=== PATIENT | male | born 1975 | race Caucasian/White ===

== ENCOUNTER 2019-03-19 13:12 | Outpatient (RCR) | payer MEDICARE, SELFPAY ==
--- NOTE | 2019-03-19 14:16 | HMH.PTOPEV ---
PT Outpatient Evaluation Rehab PT Outpatient Evaluation Start: 03/19/19 14:03 Freq: Status: Active Protocol: Document 03/19/19 14:03 GIOVANNI (Rec: 03/19/19 14:15 GIOVANNI [id number]) Electronically Signed By Manpreet Copeland, PT 03/19/19 14:03 Outpatient Therapy Subjective History Subjective History Patient is a 43 year old male presenting to outpatient PT with repors of L sided cervical spine pain with LUE radicular symptoms. Symptoms are of insidious onset starting 08/2018. No recent diagnostics to report. L shoulder ROM WFL. He is currently unemployed. He has completed 1 previous episode of PT for related symptoms that provided minimal relief. Some relief noted with cervical mechanical traction. Pt denies any other comorbidities. Chief Complaint Pain,Stiff Symptom Type Ache,Numbness,Tingling Symptoms Relieved By Nothing Symptoms Aggravated By Physical Activity,Lifting Prior Functional Limitations Reaching,Lifting,Housework, Recreation Activity Current Functional Limitations Reaching,Lifting,Housework, Recreation Activity Symptom Description Constant but Variable Level of pain today (0-10) 3 Pain scale - at its best (0-10) 3 Pain scale - at its worst (0-10) 7 Cervical Eval Palpation Cervical Muscles R Cervical Paraspinal,L Cervical Paraspinal,R Suboccipital,L Suboccipital,R CT Junction,L CT Junction,R Upper Trapezius,L Upper Trapezius,R Thoracic Paraspinals,L Thoracic Paraspinals Cervical/Thoracic Palpation Findings Tenderness Posture Head/C-Spine Posture Sitting Position C-Spine Flattened Flexibility Deficits Upper Trapezius Muscle Length (R) Moderate Tightness,(L) Moderate Tightness Levaetor Scapulae Muscle Length (R) Moderate Tightness,(L) Moderate Tightness Pectoralis Minor Muscle Length (R) Moderate Tightness,(L) Moderate Tightness Passive Joint Mobility Cervical PIVM Dec: R OA L OA R
== END 2019-03-19 13:20 | disposition home or self-care (01) ==
LOC: PT 13:12
PROVIDERS: Visit Provider Internal Medicine Adolescent Medicine
DX: S62.181A Displaced fracture of trapezoid [smaller multangular], right wrist, initial encounter for closed fracture (principal)
CPT/HCPCS: 97163

== ENCOUNTER → 2019-04-15 11:06 | Outpatient (CLI) | payer MEDICARE, SELFPAY ==
--- NOTE | 2019-04-15 11:17 | XR_ITS ---
XR foot RT min 3V HISTORY: ITS.REASON: RT FOOT PAIN ORDERING PHYSICIAN: Mick Bailey MD PATIENT AGE: 44 years COMPARISON: None FINDINGS: No fracture or dislocation. No lytic or blastic change. There is normal mineralization.. The joint spaces are well-preserved. No significant degenerative/arthritic changes. No erosive changes evident. A well-circumscribed calcific density is present at the proximal aspect of the first intermetatarsal space. This may be dorsal. IMPRESSION: No acute finding
== END ==
PROVIDERS: PCP Internal Medicine Adolescent Medicine; Visit Provider Internal Medicine Adolescent Medicine
DX: M79.671 Pain in right foot (principal)
CPT/HCPCS: 73630

== ENCOUNTER → 2019-04-29 17:36 | Outpatient (CLI) | payer MEDICARE, MEDICAID, SELFPAY ==
[2019-04-29 19:30] LABS: Amphetamine/Metha Screen,Urine Negative ng/mL (<1000); Barbiturates Screen,Urine Positive ng/mL (<200); Benzodiazepines Screen,Urine Positive ng/mL (<200); Cannabinoid Screen,Urine Negative ng/mL (<50); Cocaine Screen,Urine Negative ng/mL (<300); Methadone Screen,Urine Negative ng/mL (<300); Opiate Screen,Urine Positive ng/mL (<300); Phencyclidine Screen,Urine Negative ng/mL (<25)
== END ==
PROVIDERS: Visit Provider Nurse Practitioner Family
DX: Z79.899 Other long term (current) drug therapy (principal)
CPT/HCPCS: 80305

== ENCOUNTER → 2019-06-25 19:37 | Outpatient (CLI) | payer MEDICARE, MEDICAID, SELFPAY | PROVIDERS: PCP Nurse Practitioner Family; Visit Provider Nurse Practitioner Family | DX: G47.33 Obstructive sleep apnea (adult) (pediatric) (principal); R40.0 Somnolence; R06.83 Snoring | CPT/HCPCS: 95810 ==

== ENCOUNTER → 2019-07-14 10:42 | Outpatient (CLI) | payer MEDICARE, MEDICAID, SELFPAY ==
[2019-07-14 13:12] LABS: Thyroid Stimulating Hormone 0.96 uIU/ml (0.358-3.740)
[2019-07-15 05:08] LABS: Hep A Ab, IgM Negative (Negative); Hepatitis B Core Antibody IgM Negative (Negative); Hepatitis B Surface Antigen Negative (Negative); Iron 85 ug/dL (38-169); Iron Saturation 30 % (15-55); UIBC 200 ug/dL (111-343)
[2019-07-15 07:17] LABS: Hepatitis C Antibody >11.0 s/co ratio (0.0-0.9); Vitamin B12 428 pg/mL (232-1245)
[2019-07-16 11:45] LABS: H. pylori Breath Test Negative (Negative)
== END ==
PROVIDERS: Nurse Practitioner Family; Visit Provider Nurse Practitioner Psychiatric/Mental Health
DX: Z00.00 Encounter for general adult medical examination without abnormal findings (principal); R11.10 Vomiting, unspecified; F41.9 Anxiety disorder, unspecified
CPT/HCPCS: 36415; 80074; 82607; 82652; 83013; 83540; 83550; 84443

== ENCOUNTER → 2019-07-22 12:00 | Outpatient (CLI) | payer MEDICARE, MEDICAID, SELFPAY | PROVIDERS: Visit Provider Nurse Practitioner Family | DX: Z20.5 Contact with and (suspected) exposure to viral hepatitis (principal); R11.10 Vomiting, unspecified; F32.9 Major depressive disorder, single episode, unspecified; F41.1 Generalized anxiety disorder | CPT/HCPCS: 36415; 87522 ==

== ENCOUNTER 2019-09-09 08:00 | Outpatient (RCR) | payer MEDICARE, MEDICAID, SELFPAY ==
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
== END 2019-09-09 08:05 | disposition home or self-care (01) ==
LOC: PT 08:00
PROVIDERS: PCP Nurse Practitioner Family; Visit Provider Nurse Practitioner Family
DX: M54.42 Lumbago with sciatica, left side (principal)
CPT/HCPCS: 97014; 97110; 97163; G0283

== ENCOUNTER → 2019-12-08 14:32 | Outpatient (CLI) | payer MEDICARE, MEDICAID, SELFPAY ==
--- NOTE | 2019-12-08 14:40 | XR_ITS ---
PROCEDURE: XR KNEE RT 4V CLINICAL INDICATION: knee pain Right knee pain COMPARISON: No exams were available for comparison FINDINGS: No fracture or dislocation. No lytic or blastic change. There is normal mineralization. There is slight decrease in the joint space medially which could be due to early osteoarthritic change. No spurring or osteosclerosis. Other findings:None. IMPRESSION: Slight decrease in the joint space medially otherwise negative Dictated by: Romario Vidal MD 12/08/2019 15:20 Electronically signed by Romario Vidal MD in [place] 12/08/2019 15:20
== END ==
PROVIDERS: PCP Nurse Practitioner Family; Visit Provider Orthopaedic Surgery
DX: M25.561 Pain in right knee (principal)
CPT/HCPCS: 73564

== ENCOUNTER → 2019-12-09 14:14 | Outpatient (CLI) | payer MEDICARE, MEDICAID, SELFPAY ==
[2019-12-09 15:56] LABS: Amphetamine/Metha Screen,Urine Negative ng/ml (<1000)
[2019-12-09 15:57] LABS: Barbiturates Screen,Urine Negative ng/ml (<200)
[2019-12-09 15:58] LABS: Benzodiazepines Screen,Urine Positive ng/ml (<200); Cannabinoid Screen,Urine Negative ng/ml (<50)
[2019-12-09 15:59] LABS: Cocaine Screen,Urine Negative ng/ml (<300)
[2019-12-09 16:00] LABS: Methadone Screen,Urine Negative ng/ml (<300); Opiate Screen,Urine Negative ng/ml (<300)
[2019-12-09 16:01] LABS: Phencyclidine Screen,Urine Negative ng/ml (<25)
== END ==
PROVIDERS: Visit Provider Nurse Practitioner Family
DX: Z79.899 Other long term (current) drug therapy (principal)
CPT/HCPCS: 80305

== ENCOUNTER → 2019-12-16 07:38 | Outpatient (CLI) | payer MEDICARE, MEDICAID, SELFPAY ==
--- NOTE | 2019-12-16 07:38 | MR_ITS ---
PROCEDURE: MR KNEE RT WO CON CLINICAL INDICATION: Knee pain Medial right knee pain COMPARISON: XR KNEE RT 4V from 12/08/2019 TECHNIQUE: Routine multiplanar multi echo sequences are performed without gadolinium enhancement. FINDINGS: Cruciate ligaments appear intact. Collateral ligaments, patellar tendon, and quadriceps tendon appear intact. There is a horizontal tear involving the posterior horn of the medial meniscus. There may be a small bucket-handle component. There is diffuse increased T2 signal involving the posterior horn of lateral meniscus. This however does not meet strict MRI criteria for meniscal tear. There are mild osteoarthritic changes with decrease in the joint space medially and small posterior osteophytes noted at the patella. There is a small knee joint effusion. IMPRESSION: The there is a complex tear involving the posterior horn of the medial meniscus with what appears to represent a horizontal component and possible small bucket-handle or radial tear is well Mild osteoarthritic changes with small knee joint effusion Dictated by: Romario Vidal MD 12/17/2019 12:35 Electronically signed by Romario Vidal MD in [place] 12/17/2019 12:35
== END ==
PROVIDERS: PCP Nurse Practitioner Family; Visit Provider Orthopaedic Surgery
DX: M25.561 Pain in right knee (principal)
CPT/HCPCS: 73721

== ENCOUNTER → 2020-01-09 09:49 | Outpatient (CLI) | payer MEDICARE, MEDICAID, SELFPAY | PROVIDERS: PCP Nurse Practitioner Family; Visit Provider Nurse Practitioner Family | DX: R06.02 Shortness of breath (principal) | CPT/HCPCS: 94060; 94618; 94640; 94727; 94729 ==

== ENCOUNTER 2020-02-07 20:24 | Emergency (ER) | payer MEDICARE, MEDICAID, SELFPAY ==
[2020-02-07 20:26] VITALS: BP 113/81; PULSE 103; RESP 24; TEMP 36.9; O2SAT 95; BMI 37.6
--- NOTE | 2020-02-07 20:40 | XR_ITS ---
PROCEDURE: XR CHEST 2V CLINICAL HISTORY: cough, congestion Cough and congestion, smoker COMPARISON: No exams were available for comparison FINDINGS: The cardiomediastinal silhouette and pulmonary vascularity are within normal limits. There is generalized coarsening of the bronchovascular markings consistent with smoking related lung disease. In addition, there is patchy ground-glass density in the left upper lobe and lingula with some mild atelectatic change in the lingula. There is a more rounded area of density in the left lower lung zone at 15 mm. No acute bony abnormalities. IMPRESSION: Left upper lobe and lingular pneumonia with atelectatic changes in the lingula. The pneumonia has a ground-glass opacity and could be seen with COVID 19 however, that appearance is nonspecific. Bacterial pneumonia is also consideration. In addition there is a 15 mm nodular opacity overlying the left lower lung zone. Suggest following till clear recommended. Dictated by: Romario Vidal MD 02/08/2020 06:40 Electronically signed by Romario Vidal MD in [place] 02/08/2020 06:40
--- NOTE | 2020-02-07 20:41 | HMH.EDUTC ---
[facility] [place] Impression: Pneumonia Qualifiers: Pneumonia type: due to unspecified organism Laterality: left Lung location: unspecified part of lung Qualified Code(s): J18.9 - Pneumonia, unspecified organism Disposition: Home, Self-Care Condition on Discharge: Good Instructions: Sore Throat, Pneumonia-Adult, Cough, DI for Cough -- Adult, Albuterol, Preventing the Spread of Coronavirus Discharge Instructions Additional Instructions: *Monitor Temp, Over the counter Motrin or Tylenol as directed/as needed Tylenol every 4 hours and Motrin every 6 hours (as long as your family doctor has told you that you can take it) for fever or pain. and straight to ER if unable to lower temp less than 101.0 after medication given *Warm salt water gargles may help to soothe the throat *Throat Lozenges *Warm fluids *Sleep elevated *Humidifier/Vaporizer Your throat swab was sent for culture. Those results are typically sent to your primary care. Be sure to follow up in 2-3 days with your family doctor/primary care physician if no improvement so they can review those result and treat if necessary. If you don?t have a primary care doctor, I recommend you get one but in the mean time, you will have to return to a walk in clinic Follow up IMMEDIATELY for new or worsening symptoms or no Noticeable improvement over the next 48-72 hours. 911 for difficulty breathing or swallowing You was tested for CoronaVirus and was given a handout with instructions, Go home and self quarantine as you was advised in the [facility] and await results and follow instructions on card and instructions given in [facility] Prescriptions: Azithromycin [Z-Chinedu 250mg Tab] 250 mg PO DIRECTED #6 tab Transmission Status: Pending to [facility]/pharmacy #[id number] Referrals: Jorge Velasco MD [Primary Care Provider] - As needed Time of Disposition: 21:27 Medical Decision Making - Jonathan Inquiry Pt receiving controlled substance: No Jonathan was queried for this patient: No Vital Signs: 02/07/20 20:26 Temperature 98.4 F Temperature Source Oral Pulse Rate [Radial] 103 H Respiratory Rate 24 Blood Pressure [Right Arm] 113/81 Blood Pressure Mean [Right Arm] 91 Blood Pressure Source [Right Arm] Automatic Cuff Blood Pressure Position [Right Arm] Sitting 02 Sat by Pulse Oximetry 95 Oxygen Delivery Method Room Air - Lab Data Lab results reviewed: Yes: I reviewed the patient's lab results. Lab Results 02/07/20 20:56: Influenza Type A Ag Negative, Influenza Type B Ag Negative 02/07/20 20:56: Strep Scn Rapid Clinic Negative Orders (Tests/Meds): ORDERS Category Date Time Status Chest XR 2 view (NOT portable) [XR chest 2V] Stat Exams 02/07/20 20:40 Taken SARS-CoV-2, [place] Stat Lab 02/07/20 20:56 Ordered Strep Screen Confirmation Stat Micro 02/07/20 20:56 Received - Radiology Data #1 Image(s): Chest Image Reviewed: Yes I reviewed the patient's radiology image w/the ED provider Discussed with Dr Krista Spaulding left lung [facility] [place] - General Stated complaint: MORROW,sore throat Time Seen by Provider: 02/07/20 20:41 Mode of Arrival: Ambulatory Source of Information: Patient Limitations: No Limitations Description of Symptoms (Recalled from Triage Doc. by RN): weakness, SOB, sore throat, cough, congestion HEENT Symptoms (Recalled from RN notes): Yes Resp Symptoms (Recalled from RN notes): No Skin Symptoms (Recalled from RN notes): No MS Symptoms (Recalled from RN notes): No Functional Status (Recalled from RN notes): wnl - History of Present Illness Provider Complaint: Patient state that he hasnt been feeling that well for about a week and got worse in the last couple of days States that he has been having sore throat, sinus pain and pressure, dry cough and at times coughs so much he feels a little short of breath States that he has a history of COPD and stopped smoking a little while back States that earlier he had temp of 100.0 at home so his family wanted
[2020-02-07 20:57] LABS: UTC Influenza A Antigen Negative (Negative); UTC Influenza B Antigen Negative (Negative); UTC Strep Screen (Rapid) Negative (Negative)
[2020-02-07 21:37] VITALS: BP 113/81; PULSE 103; RESP 24; TEMP 36.9; O2SAT 95
--- NOTE | 2020-02-09 17:17 | PC.NURSE ---
Notified pt and provider of negative covid results.
[2020-02-09 17:22] LABS: Covid-19 Nasal PCR Sendout Lex Not Detected
== END 2020-02-07 21:40 | disposition home or self-care (01) ==
PROVIDERS: Emergency Provider Nurse Practitioner; PCP Emergency Medicine
DX: J18.9 Pneumonia, unspecified organism (principal); F41.8 Other specified anxiety disorders; F17.210 Nicotine dependence, cigarettes, uncomplicated; J44.9 Chronic obstructive pulmonary disease, unspecified; Z79.899 Other long term (current) drug therapy
CPT/HCPCS: 71046; 87804; 87880; 99202; U0003

== ENCOUNTER 2020-03-03 23:57 | Observation (INO) | payer MEDICARE, MEDICAID, SELFPAY ==
--- NOTE | 2020-03-03 23:48 | ECG_ITS ---
APPROVED REPORT Exam: Resting ECG HR:75 bpm ECG Measurements Heart Rate 75 AXES VA 194 P 66 QRSd 88 QRS 30 QT 394 T 47 QTc 439 <Conclusion> Normal sinus rhythm Possibleold inferior/lateral infarct Abnormal ECG Electronically signed by : Larry Hernandez, 03/05/2020 13:59:25
[2020-03-03 23:58] VITALS: BP 131/76; PULSE 77; RESP 16; TEMP 36.7; O2SAT 95; BMI 37.9
[2020-03-04] VITALS (20 sets, daily range): BP systolic 94–132; BP diastolic 59–84; PULSE 40–82; RESP 12–18; TEMP 36.4–36.7; O2SAT 92–98; BMI 37.6; BMI 37.8
--- NOTE | 2020-03-04 | IR_ITS ---
APPROVED REPORT Patient Location: Inpatient Vending Machine Collector: ELISABET Layton RT (R) PROCEDURES Left heart catheterization Left ventriculogram Selective coronary angiogram INDICATION Acute coronary syndrome Informed consent was obtained prior to the procedure. COMPLICATIONS None Estimated Blood Loss: Less than 10 ml TECHNIQUE One percent lidocaine used to anesthetize the right anterior aspect of the wrist. The right radial artery was accessed via the Seldinger technique. A 6 [place] sheath was placed in the right radial artery. 2.5 mg of verapamil, 800 mcg of nitroglycerin, 1mg Lidocaine and 5000 U Heparin were given through the arterial sheath. The trap catheter and 6 Singaporean JL 3 catheter were used to perform left heart catheterization, left ventriculogram and selective coronary angiogram. At the end of the procedure the sheath was removed good hemostasis was achieved using Traclet band, patient was transferred to the postop holding area in stable condition. ANGIOGRAPHIC RESULTS The left main artery Normal The left anterior descending artery Has proximal mild 10 to 20% stenosis. The mid LAD has mild 10% stenosis. Large first diagonal artery has an ostial 50 to 60% stenosis and is 2 mm in diameter The circumflex artery Is nondominant normal The right coronary artery Is a massively large dominant vessel with mild diffuse 10% luminal irregularities The MCBRIDE ventriculogram reveals Normal 65% The left ventricular end-diastolic pressure 10 mmHg IMPRESSION Moderate stenosis and a 2 mm first diagonal artery which is the likely etiology for the angina Normal ejection fraction Normal left ventricular end-diastolic pressure PLAN 1. Medical management. I would be very hard pressed to revascularize this diagonal artery. This has a much more favorable response to medical management and percutaneous revascularization. 2. Aggressive risk factor modification 3. LDL less than 55 4. Maximize antianginals Electronically signed by : Win Linares, 03/04/2020 12:33:45
--- NOTE | 2020-03-04 00:20 | XR_ITS ---
PROCEDURE: XR CHEST 2V CLINICAL HISTORY: chest pain COMPARISON: XR CHEST 2V from 02/07/2020 FINDINGS: The cardiomediastinal silhouette and pulmonary vascularity are within normal limits. Mild left upper lobe and lingular airspace disease/atelectasis as previously described which is shown some improvement. The nodular opacity overlying the lingular region is less apparent. The right lung is clear. No new areas of infiltrate. No acute bony abnormalities. IMPRESSION: Persistent but improving left upper lobe and lingular airspace disease/atelectatic change Dictated by: Romario Vidal MD 03/04/2020 07:13 Electronically signed by Romario Vidal MD in [place] 03/04/2020 07:13
[2020-03-04 00:44] LABS: Anion Gap 12.7 mEq/L (5-15); Blood Urea Nitrogen 14 mg/dl (9-20); Calcium 8.9 mg/dl (8.4-10.2); Carbon Dioxide 21 mmol/L (22.0-30.0); Chloride 109 mmol/L (98-107); Creatinine Clearance Estimated 137 mL/min (50-200); Estimated Glomerular Filt Rate 66 ml/min (>60); GFR (African American) 80 ML/MIN (>60); Glucose 113 mg/dl (74-100); Potassium 3.7 mmoL/L (3.5-5.1); Sodium 139 mmol/L (136-145)
[2020-03-04 00:46] LABS: Basophils # 0.1 K/mm3 (0-0.2); Basophils % 0.6 % (0.1-2.0); Eosinophils # 0.6 K/mm3 (0.0-0.4); Eosinophils % 5.4 % (0.1-12.0); Hematocrit 38.2 % (42.0-52.0); Hemoglobin 13.1 g/dL (14.1-18.0); Lymphocytes % 27.9 % (10-50); Mean Corpuscular HGB Conc 34.5 g/dL (31.8-35.4); Mean Corpuscular Hemoglobin 29.8 pg (27.0-31.2); Mean Corpuscular Volume 86.4 fl (80-94); Mean Platelet Volume 7.6 fl (7.4-10.4); Monocytes # 0.6 K/mm3 (0.1-1.0); Monocytes % 5.1 % (1.7-9.3); Neutrophils # 6.6 K/mm3 (1.8-7.8); Platelet Count 243 K/mm3 (142-424); Red Blood Count 4.41 M/mm3 (4.60-6.20); Red Cell Distribution Width 14.2 % (11.5-17.5); White Blood Count 10.8 K/mm3 (4.8-10.8)
[2020-03-04 01:10] LABS: Troponin I < 0.01 ng/ml (0.00-0.034)
--- NOTE | 2020-03-04 02:00 | HMH.EDCP ---
ED Disposition Clinical Impression: Obesity (BMI 30-39.9) Chest pain Qualifiers: Chest pain type: precordial pain Qualified Code(s): R07.2 - Precordial pain Disposition: Admitted as Observation Condition on Discharge: Good Referrals: Dio Albarado APRN [Primary Care Provider] - - Critical Care Critical Care Time: No Attestation: On 03/03/20, the high probability of a clinically significant, sudden or life threatening deterioration of the following system(s) required my full and direct attention, intervention and personal management. The time I documented below is in addition to time spent performing reported procedures but includes the following listed in this critical care notation. Medical Decision Making - Medical Records Medical records reviewed: Yes: I reviewed the patient's medical records. - Jonathan Inquiry Pt receiving controlled substance: No Vital Signs: 03/03/20 23:58 03/04/20 00:28 Temperature 98.0 F Temperature Source Oral Pulse Rate [Left Radial] 77 71 Respiratory Rate 16 16 Blood Pressure [Right Arm] 131/76 129/69 Blood Pressure Mean [Right Arm] 94 89 Blood Pressure Source [Right Arm] Automatic Cuff Automatic Cuff Blood Pressure Position [Right Arm] Sitting Sitting 02 Sat by Pulse Oximetry 95 96 Oxygen Delivery Method Room Air Room Air - Lab Data Lab results reviewed: Yes: I reviewed the patient's lab results. Lab Results 03/04/20 00:00: WBC 10.8, RBC 4.41 L, Hgb 13.1 L, Hct 38.2 L, MCV 86.4, MCH 29.8, MCHC 34.5, RDW 14.2, Plt Count 243, MPV 7.6, Neut % (Auto) 61.0, Lymph % (Auto) 27.9, [place] % (Auto) 5.1, Eos % (Auto) 5.4, Baso % (Auto) 0.6, Neut # (Auto) 6.6, Lymph # (Auto) 3.0, [place] # (Auto) 0.6, Eos # (Auto) 0.6 H, Baso # (Auto) 0.1 03/04/20 00:00: Sodium 139, Potassium 3.7, Chloride 109 H, Carbon Dioxide 21 L, Anion Gap 12.7, BUN 14, Creatinine 1.20, Estimated Creat Clear 137, Estimated GFR 66, Est GFR ( Amer) 80, Glucose 113 H, Calcium 8.9, Troponin I < 0.01 Result diagrams: 03/04/20 00:00 03/04/20 00:00 Orders (Tests/Meds): ED MEDICATIONS Generic Name Dose Route Start Last Admin Trade Name Freq PRN Reason Stop Dose Admin Sodium Chloride 1,000 mls @ 999 mls/hr 03/04/20 00:00 03/04/20 00:01 Sod Chlor 0.9% 1000ml Bag IV 03/04/20 01:00 999 mls/hr .Q1H1M JABARI Administration Discontinued Medications Generic Name Dose Route Start Last Admin Trade Name Freq PRN Reason Stop Dose Admin Aspirin 324 mg 03/04/20 00:00 03/04/20 00:01 Aspirin 81mg Chewable Tablet PO 03/04/20 00:01 324 mg ONCE ONE Administration Ketorolac Tromethamine 30 mg 03/04/20 00:47 03/04/20 00:49 Toradol 30mg/Ml Vial IV 03/04/20 00:48 30 mg ONCE ONE Administration Nitroglycerin 0.4 mg 03/04/20 00:00 03/04/20 00:01 Nitrostat 0.4mg Sl Tablet SL 03/04/20 00:01 0.4 mg ONCE ONE Administration Nitroglycerin 1 gm 03/04/20 01:19 03/04/20 01:20 Nitroglycerin 1 Inch Oint Udp TD 03/04/20 01:20 1 gm ONCE ONE Administration ORDERS Category Date Time Status XR chest 2V Stat Exams 03/04/20 00:20 Taken Troponin I Q3H Lab 03/04/20 03:30 Ordered Troponin I Q3H Lab 03/04/20 06:30 Ordered - Radiology Data #1 Image(s): Chest Image Reviewed: Yes I reviewed the patient's radiology image Preliminary Findings: Abnormal (inc markings ) - ECG Data Tracing #1 Normal Sinus Rhythm: Yes Ischemic changes: non-specific ST-T wave changes Chest Pain HPI - General Chief Complaint: Chest Pain Stated Complaint: chest pain Time Seen by Provider: 03/04/20 01:00 Mode of Arrival: Ambulatory Source of Information: Patient, Spouse, Medical Record Limitations: No Limitations Description of Symptoms (Recalled from ER Triage Doc. by RN): pt stated he has been experiencing intermitten chest pain for the last 2 weeks. pt describes it as a dull pain on the left side of his chest radiating to his back. pt stated this started when they took hi
--- NOTE | 2020-03-04 02:34 | PC.NURSE ---
report called to KAVEH Barrios
[2020-03-04 04:19] LABS: Troponin I < 0.01 ng/ml (0.00-0.034)
--- NOTE | 2020-03-04 05:52 | PC.NURSE ---
A&O X4. PT VERY PLEASANT UPON ADMISSION. DENIES CP T/O SHIFT. NITRO PASTE REMAINED IN PLACE UNTIL SHOWER THIS AM. C/O MORROW UPON ARRIVAL TO UNIT. ADMINISTERED TYLENOL PER DEC. UPON REASSESSMENT PT C/O MINIMAL RELIEF. WENT BACK INTO THE ROOM A FEW MINUTES LATER TO ADMIN MORPHINE PER DEC, PT NOTED RESTING IN BED WITH EYES CLOSED. NO FURTHER COMPLAINTS. WILL CONTINUE TO REASSESS MORROW. BILATERAL BREATH SOUNDS NOTED CLEAR T/O UPON AUSCULTATION. NSR AND SINUS MILLIE NOTED ON TREASURY ANALYST THIS AM. REFUSED TEDS. NO EDEMA NOTED. REMAINS NPO. REMAINS SAFE WITH SPOUSE AT BEDSIDE. WILL CONTINUE TO MONITOR.
[2020-03-04 07:05] LABS: Basophils % 0.6 % (0.1-2.0); Eosinophils # 0.6 K/mm3 (0.0-0.4); Eosinophils % 7.3 % (0.1-12.0); Hematocrit 35.9 % (42.0-52.0); Hemoglobin 12.1 g/dL (14.1-18.0); Lymphocytes # 2.3 K/mm3 (0.7-4.5); Lymphocytes % 30.1 % (10-50); Mean Corpuscular HGB Conc 33.7 g/dL (31.8-35.4); Mean Corpuscular Hemoglobin 29.5 pg (27.0-31.2); Mean Corpuscular Volume 87.6 fl (80-94); Monocytes # 0.4 K/mm3 (0.1-1.0); Monocytes % 5.3 % (1.7-9.3); Neutrophils # 4.3 K/mm3 (1.8-7.8); Neutrophils % 56.7 % (37.0-80.0); Platelet Count 208 K/mm3 (142-424); Red Blood Count 4.09 M/mm3 (4.60-6.20); Red Cell Distribution Width 14.4 % (11.5-17.5); White Blood Count 7.6 K/mm3 (4.8-10.8)
[2020-03-04 07:19] LABS: Anion Gap 10.9 mEq/L (5-15); Blood Urea Nitrogen 12 mg/dl (9-20); Calcium 8.6 mg/dl (8.4-10.2); Carbon Dioxide 21 mmol/L (22.0-30.0); Chloride 110 mmol/L (98-107); Chol/HDL Ratio 3.6 (1-3.5); Cholesterol 137 mg/dl (140-200); Creatinine Clearance Estimated 149 mL/min (50-200); Estimated Glomerular Filt Rate 73 ml/min (>60); GFR (African American) 88 ML/MIN (>60); Glucose 101 mg/dl (74-100); HDL Cholesterol 38 mg/dl (40-60); Potassium 3.9 mmoL/L (3.5-5.1); Sodium 138 mmol/L (136-145); Triglycerides 79 mg/dl (30-150); VLDL Cholesterol 16 mg/dL (0-40)
[2020-03-04 07:29] LABS: Direct LDL Cholesterol 94.05 mg/dL (100-129)
--- NOTE | 2020-03-04 07:31 | P.CONPHA_ITS ---
[facility] Pharmacy VTE Monitoring - Patient Demographics Admission date: 03/04/20 Report Date: 03/04/20 Time: 07:31 Allergies/Adverse Reactions: Patient Allergies No Known Allergies Allergy (Verified 03/04/20 00:27) Height: 1.8 m Weight: 122.64 kg Patient Problems: Current Active Problems Chest pain (Acute) Obesity (BMI 30-39.9) (Acute) - VTE Risk Labs: VTE Related Lab Results Hgb 12.1 g/dL (14.1-18.0) L 03/04/20 06:42 Hct 35.9 % (42.0-52.0) L 03/04/20 06:42 Plt Count 208 K/mm3 (142-424) 03/04/20 06:42 BUN 12 mg/dl (9-20) 03/04/20 06:42 Creatinine 1.10 mg/dl (0.66-1.25) 03/04/20 06:42 Estimated Creat Clear 149 mL/min (50-200) 03/04/20 06:42 Was VTE Risk Assessment Performed: Yes VTE Score: 5 VTE Risk Level: Low Risk Clinical Trial Participant: No - Prophylaxis VTE Prophylaxis Ordered?: Yes Types of VTE Prophylaxis: TEDS Knee High
[2020-03-04 07:32] LABS: Troponin I < 0.01 ng/ml (0.00-0.034)
--- NOTE | 2020-03-04 07:38 | HMH.PHAINT ---
HOME MEDICATION RECONCILIATION COMPLETED USING LIST FROM HOME PHARMACY
--- NOTE | 2020-03-04 07:56 | HMH.CNCARD ---
History of Present Illness Consult date: 03/04/20 Requesting physician: Jorge Velasco Consult reason: chest pain Chief complaint: chest pain Additional Medical History:: 1. Tobacco use, up to 1 pack/day for 20 years, discontinued recently 2. History of anxiety and depression 3. History of peripheral neuropathy with difficulty walking 4. History of asthma 5. History of GERD History of present illness: 44-year-old white male presented to the emergency department for 2-week history of chest pain worse with ambulation and stress. Patient states his 4 children (ages 12 down to 5 years of age) were removed from his parents home 2 weeks ago due to his dad not wanting to deal with the kids anymore. Patient does not know where the kids have been relocated. Substernal chest pain described as a heaviness and pressure with associated radiation to the left arm, shortness of breath and diaphoresis. Patient relates resolution of symptoms with nitroglycerin last evening. EKG showed sinus rhythm with no acute ST segment changes and troponins have returned normal x3. Cardiology consulted for evaluation recommendations Patient does have history of coughing to the point of vomiting. [facility] History Medical History: Reports:: Anxiety, Asthma, Depression, Migraine Denies:: Cancer, Diabetes Mellitus Type 1, Diabetes Mellitus Type 2, Hyperlipidemia, Hypertension, MRSA *Have you ever received a pneumonia vaccine?: No *Have you received a flu vaccine this season?: Yes Other Surgeries: Yes: Appendectomy, Other Amputation: No Fractures: No - *Social History Educational Level: Completed High School Smoking Status: Former smoker Tobacco Type: cigarettes # Packs/Day (cigarettes): 1 Smoking End Date: 6 months ago Alcohol Intake: current Alcohol Intake Frequency:: holidays/special occasions only Substance Use Type: denies use *Occupational Status:: disabled Housing: house Household Members: spouse, family *Travel in the last 8 weeks: None - Psychiatric History Pschychiatric History:: Reports:: Anxiety, Depression Family Hx:: Diabetes, Heart Attack, Hyperlipidemia, Hypertension Meds Home Medications Medication Instructions Recorded Confirmed Type albuterol sulfate 90 mcg/actuation 2 puff INHALATION Q4-6H PRN #6.7 g 12/09/19 03/04/20 Rx aerosol inhaler diazepam 2 mg tablet 2 mg PO DAILY PRN #30 tab 02/03/20 03/04/20 Rx Fluoxetine HCl 40 mg PO DAILY 03/04/20 03/04/20 History Fluticasone Propionate 1 spray INTRANASAL DAILY 03/04/20 03/04/20 History Fluticasone/Vilanterol [Breo 1 inh INHALATION DAILY 03/04/20 03/04/20 History Ellipta] Gabapentin 800 mg PO TID 03/04/20 03/04/20 History Montelukast Sodium [Singulair] 10 mg PO QPM 03/04/20 03/04/20 History Omeprazole 40 mg PO DAILY 03/04/20 03/04/20 History Topiramate [Topamax 100mg tablet] 100 mg PO DAILY 03/04/20 03/04/20 History risperiDONE [Risperidone] 0.5 mg PO BID 03/04/20 03/04/20 History Allergies Allergy/AdvReac Type Severity Reaction Status Date / Time No Known Allergies Allergy Verified 03/04/20 00:27 Review of Systems - Review of Systems Review of systems:: pertinent systems reviewed and negative unless documented below - *Cardiovascular Reports chest pain, Reports chest pain with activity, Reports shortness of breath with activity - *Respiratory Reports cough, Reports shortness of breath with activity - *Gastrointestinal Reports nausea, Reports vomiting, Denies loose stools - *Genitourinary Denies blood in urine - *Musculoskeletal Reports joint pain, Reports back pain - *Neurologic Denies dizziness, Denies tingling/numbness/burning sensations, Denies seizure-like activity, Denies fainting Exam Vital signs and Labs for Last 24 Hours: Temp Pulse Resp BP Pulse Ox 97.7 F 50 L 18 103/69 L 96 03/04/20 04:00 03/04/20 04:38 03/04/20 04:00 03/04/20 04:00 03/04/20 04:00 Laboratory Results - last 24 hr 03/04/20 00:00: WBC 10.8, RBC 4.41 L,
--- NOTE | 2020-03-04 08:00 | CA_ITS ---
APPROVED REPORT EXAM: Comprehensive 2D, Doppler, and color-flow Echocardiogram Molding Process Technician: Ruchi Conroy RDCS Ht: 5 ft 11 in Wt: 272lbs BSA: 2.40 BP: 129/69 mmHg Indications: CP 2D Dimensions LVOT 1.97 cm (M/F) 1.5-2.5 M-Mode Dimensions RVDd 3.35 cm (0.9-2.6) LVDd 5.49 cm (3.5-5.7) LVDs 3.75 cm (3.5-5.7) IVSd 1.29 cm (0.6-1.1) PWd 1.12 cm (0.6-1.1) EF (Teich) 59.10% FS 31.70% EDV (Teich) 146.80 mL ESV (Teich) 60.00 mL LV Diastology E/A Ratio 1.02 Mitral Valve MV A Velocity 68.00 (40-130 cm/s) Left Ventricle Left atrium is normal size, left ventricle is normal size, left ventricle wall thickness is upper limit of the normal, there is preserved left ventricular systolic function, visually estimated ejection fraction 55% with no regional wall motion abnormality. Diastolic parameters are inconclusive. Right Ventricle Right atrium is normal size, right ventricle is mildly enlarged with normal contractility. Aortic Valve Aortic valve is grossly normal, there is no aortic stenosis or aortic insufficiency. Mitral Valve Mitral valve is grossly normal, there is mild mitral regurgitation. Tricuspid Valve Tricuspid valve is grossly normal, there is mild tricuspid regurgitation. Tricuspid regurgitation jet velocity is inadequate for calculation of the right ventricular systolic pressure. Pulmonic Valve Pulmonic valve is poorly visualized. Great Vessels Aortic root is normal size. Pericardium No significant pericardial effusion noted. Conclusion 1. Normal left ventricular size, preserved left ventricular systolic function, visually estimated ejection fraction 55% with no regional wall motion abnormality, diastolic parameters are inconclusive. 2. Mildly enlarged right ventricle with normal contractility. 3. Mild mitral and tricuspid regurgitation. 4. No significant pericardial effusion noted. Electronically signed by : Siddharth Cisneros, 03/04/2020 16:20:37
--- NOTE | 2020-03-04 11:49 | PC.NURSE ---
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
--- NOTE | 2020-03-04 16:40 | HMH.HPDC ---
General - General Admission date:: 03/04/20 Discharge date: 03/04/20 *Admission Date: 03/04/20 *Chief complaint: chest pain *History of present illness: 44-year-old male presented to the emergency department for 2-week history of chest pain worse with ambulation and stress. Patient states his 4 children (ages 12 down to 5 years of age) were removed from his parents home 2 weeks ago and stress has increased. Substernal chest pain described as a heaviness and pressure with associated radiation to the left arm, shortness of breath and diaphoresis. Patient relates resolution of symptoms with nitroglycerin last evening. EKG showed sinus rhythm with no acute ST segment changes and troponins have returned normal x3. Cardiology consulted for evaluation recommendations, hx of smoking but quit a few years ago. [facility] History I have reviewed the patient's past medical history: Yes Medical History: Reports:: Anxiety, Asthma, Depression, Migraine Denies:: Cancer, Diabetes Mellitus Type 1, Diabetes Mellitus Type 2, Hyperlipidemia, Hypertension, MRSA *Have you ever received a pneumonia vaccine?: No *Have you received a flu vaccine this season?: Yes Other Surgeries: Yes: Appendectomy, Other Amputation: No Fractures: No - *Social History Educational Level: Completed High School Smoking Status: Former smoker Tobacco Type: cigarettes # Packs/Day (cigarettes): 1 Smoking End Date: 6 months ago Alcohol Intake: current Alcohol Intake Frequency:: holidays/special occasions only Substance Use Type: denies use *Occupational Status:: disabled Housing: house Household Members: spouse, family *Travel in the last 8 weeks: None - Psychiatric History Pschychiatric History:: Reports:: Anxiety, Depression Family Hx:: Diabetes, Heart Attack, Hyperlipidemia, Hypertension Review of Systems - Review of Systems Review of systems:: pertinent systems reviewed and negative unless documented below - Constitutional Denies body ache(s), Denies excessive sweating - Eyes Denies itchy eyes - ENT Denies neck pain, Denies sore throat - *Cardiovascular Reports chest pain, Reports chest pain with activity - *Respiratory Denies chest congestion - *Gastrointestinal Denies bloating, Denies vomiting - *Genitourinary Denies urinary urgency - *Musculoskeletal Denies stiffness - Integumentary/Breasts Denies change in hair - *Neurologic Denies dizziness, Denies tingling/numbness/burning sensations, Denies seizure-like activity, Denies fainting - Psychiatric Denies anxiety - Endocrine Denies flushing - Hematologic/Lymphatic Denies enlarged lymph nodes - Allergic/Immunologic Denies lip swelling Exam Vital signs and Labs for Last 24 Hours: Temp Pulse Resp BP Pulse Ox 98.0 F 48 L 16 110/68 92 L 03/04/20 08:00 03/04/20 12:40 03/04/20 12:40 03/04/20 12:40 03/04/20 12:40 Laboratory Results - last 24 hr 03/04/20 00:00: WBC 10.8, RBC 4.41 L, Hgb 13.1 L, Hct 38.2 L, MCV 86.4, MCH 29.8, MCHC 34.5, RDW 14.2, Plt Count 243, MPV 7.6, Neut % (Auto) 61.0, Lymph % (Auto) 27.9, [place] % (Auto) 5.1, Eos % (Auto) 5.4, Baso % (Auto) 0.6, Neut # (Auto) 6.6, Lymph # (Auto) 3.0, [place] # (Auto) 0.6, Eos # (Auto) 0.6 H, Baso # (Auto) 0.1 03/04/20 00:00: Sodium 139, Potassium 3.7, Chloride 109 H, Carbon Dioxide 21 L, Anion Gap 12.7, BUN 14, Creatinine 1.20, Estimated Creat Clear 137, Estimated GFR 66, Est GFR ( Amer) 80, Glucose 113 H, Calcium 8.9, Troponin I < 0.01 03/04/20 03:39: Troponin I < 0.01 03/04/20 06:42: Troponin I < 0.01 03/04/20 06:42: WBC 7.6 D, RBC 4.09 L, Hgb 12.1 L, Hct 35.9 L, MCV 87.6, MCH 29.5, MCHC 33.7, RDW 14.4, Plt Count 208, MPV 8.0, Neut % (Auto) 56.7, Lymph % (Auto) 30.1, [place] % (Auto) 5.3, Eos % (Auto) 7.3, Baso % (Auto) 0.6, Neut # (Auto) 4.3, Lymph # (Auto) 2.3, [place] # (Auto) 0.4, Eos # (Auto) 0.6 H, Baso # (Auto) 0.0 03/04/20 06:42: Sodium 138, Potassium 3.9, Chloride 110 H, Carbon Dioxide 21 L, Anion Gap 10.9, BUN 1
== END 2020-03-04 18:33 | disposition home or self-care (01) ==
LOC: ER 03-04 02:14 → 2ND 03-04 02:57
PROVIDERS: Internal Medicine; Admitting Provider Emergency Medicine; Emergency Provider Emergency Medicine; PCP Nurse Practitioner Family; Visit Provider Emergency Medicine
DX: R07.9 Chest pain, unspecified (principal); I25.118 Atherosclerotic heart disease of native coronary artery with other forms of angina pectoris; Z87.891 Personal history of nicotine dependence; G62.9 Polyneuropathy, unspecified; F41.8 Other specified anxiety disorders
CPT/HCPCS: 36415; 71046; 80048; 80061; 83735; 84484; 85025; 93005; 93306; 93458; 96365; 96375; 99152; 99284; C1725; C1760; C1769; G0378; J1644; Q9967

== ENCOUNTER 2020-03-11 20:19 | Emergency (ER) | payer MEDICARE, MEDICAID, SELFPAY ==
--- NOTE | 2020-03-11 20:14 | ECG_ITS ---
APPROVED REPORT Exam: Resting ECG HR:84 bpm ECG Measurements Heart Rate 84 AXES NE 184 P 52 QRSd 84 QRS 2 QT 380 T 51 QTc 449 <Conclusion> Normal sinus rhythm Old inferior changes Abnormal ECG Electronically signed by : Carlos Noland, 03/13/2020 14:16:41
[2020-03-11 20:20] VITALS: BP 121/78; PULSE 83; RESP 16; TEMP 36.6; O2SAT 94; BMI 38.0
--- NOTE | 2020-03-11 20:26 | XR_ITS ---
PROCEDURE: XR CHEST 2V CLINICAL HISTORY: chest pain Smoker COMPARISON: XR CHEST 2V from 02/07/2020 XR CHEST 2V from 03/04/2020 FINDINGS: The cardiomediastinal silhouette and pulmonary vascularity are within normal limits. Patchy density once again noted in the left upper lobe and lingula. Left upper lobe density is not significantly changed. The lingular opacity is slightly improved with some minimal atelectatic change noted No acute bony abnormalities. IMPRESSION: No change left upper lobe infiltrate with slight improvement in the lingular infiltrate. Dictated by: Romario Vidal MD 03/11/2020 22:21 Electronically signed by Romario Vidal MD in [place] 03/11/2020 22:21
[2020-03-11 20:36] LABS: Basophils # 0.1 K/mm3 (0-0.2); Basophils % 0.7 % (0.1-2.0); Eosinophils # 0.4 K/mm3 (0.0-0.4); Hematocrit 38.1 % (42.0-52.0); Hemoglobin 13.4 g/dL (14.1-18.0); Lymphocytes # 2.8 K/mm3 (0.7-4.5); Lymphocytes % 29.9 % (10-50); Mean Corpuscular HGB Conc 35.2 g/dL (31.8-35.4); Mean Corpuscular Hemoglobin 29.9 pg (27.0-31.2); Mean Corpuscular Volume 85.1 fl (80-94); Mean Platelet Volume 7.3 fl (7.4-10.4); Monocytes # 0.4 K/mm3 (0.1-1.0); Monocytes % 4.5 % (1.7-9.3); Neutrophils # 5.7 K/mm3 (1.8-7.8); Neutrophils % 60.8 % (37.0-80.0); Platelet Count 239 K/mm3 (142-424); Red Blood Count 4.47 M/mm3 (4.60-6.20); Red Cell Distribution Width 14.4 % (11.5-17.5); White Blood Count 9.4 K/mm3 (4.8-10.8)
[2020-03-11 20:39] LABS: Chloride 110 mmol/L (98-107); Potassium 3.9 mmoL/L (3.5-5.1); Sodium 140 mmol/L (136-145)
[2020-03-11 20:42] LABS: Blood Urea Nitrogen 15 mg/dl (9-20); Creatinine Clearance Estimated 127 mL/min (50-200); Estimated Glomerular Filt Rate 60 ml/min (>60); GFR (African American) 73 ML/MIN (>60)
[2020-03-11 20:43] LABS: Anion Gap 13.9 mEq/L (5-15); Carbon Dioxide 20 mmol/L (22.0-30.0)
[2020-03-11 20:58] LABS: Troponin I < 0.01 ng/ml (0.00-0.034)
--- NOTE | 2020-03-11 21:04 | HMH.EDCP ---
ED Disposition Clinical Impression: Stable angina, Obesity (BMI 30-39.9) Disposition: Home, Self-Care Condition on Discharge: Good Instructions: DI for Chest Pain Additional Instructions: see card in am for close follow up Referrals: Provider,Referral, [Primary Care Provider] - - Critical Care Critical Care Time: No Attestation: On 03/11/20, the high probability of a clinically significant, sudden or life threatening deterioration of the following system(s) required my full and direct attention, intervention and personal management. The time I documented below is in addition to time spent performing reported procedures but includes the following listed in this critical care notation. Medical Decision Making - Medical Records Medical records reviewed: Yes: I reviewed the patient's medical records. - Jonathan Inquiry Pt receiving controlled substance: No Vital Signs: 03/11/20 20:20 03/11/20 21:16 03/11/20 22:02 Temperature 97.8 F Temperature Source Oral Pulse Rate [Left Radial] 83 73 68 Respiratory Rate 16 Blood Pressure [Right Arm] 121/78 115/68 109/73 L Blood Pressure Mean [Right Arm] 92 83 85 Blood Pressure Source [Right Arm] Automatic Cuff Automatic Cuff Blood Pressure Position [Right Arm] Sitting Supine Supine 02 Sat by Pulse Oximetry 94 L 94 L 94 L Oxygen Delivery Method Room Air Room Air Room Air - Lab Data Lab results reviewed: Yes: I reviewed the patient's lab results. Lab Results 03/11/20 20:27: WBC 9.4, RBC 4.47 L, Hgb 13.4 L, Hct 38.1 L, MCV 85.1, MCH 29.9, MCHC 35.2, RDW 14.4, Plt Count 239, MPV 7.3 L, Neut % (Auto) 60.8, Lymph % (Auto) 29.9, [place] % (Auto) 4.5, Eos % (Auto) 4.0, Baso % (Auto) 0.7, Neut # (Auto) 5.7, Lymph # (Auto) 2.8, [place] # (Auto) 0.4, Eos # (Auto) 0.4, Baso # (Auto) 0.1 03/11/20 20:27: Sodium 140, Potassium 3.9, Chloride 110 H, Carbon Dioxide 20 L, Anion Gap 13.9, BUN 15, Creatinine 1.30 H, Estimated Creat Clear 127, Estimated GFR 60, Est GFR ( Amer) 73, Glucose 114 H, Calcium 9.0, Troponin I < 0.01 Result diagrams: 03/11/20 20:27 03/11/20 20:27 Orders (Tests/Meds): ED MEDICATIONS Generic Name Dose Route Start Last Admin Trade Name Freq PRN Reason Stop Dose Admin Sodium Chloride 1,000 mls @ 999 mls/hr 03/11/20 20:30 03/11/20 20:32 Sod Chlor 0.9% 1000ml Bag IV 03/11/20 21:30 999 mls/hr .Q1H1M JABARI Administration Discontinued Medications Generic Name Dose Route Start Last Admin Trade Name Freq PRN Reason Stop Dose Admin Aspirin 243 mg 03/11/20 20:26 03/11/20 20:32 Aspirin 81mg Chewable Tablet PO 03/11/20 20:27 243 mg ONCE ONE Administration Nitroglycerin 1 gm 03/11/20 21:14 03/11/20 21:21 Nitroglycerin 1 Inch Oint Udp TD 03/11/20 21:15 1 gm ONCE ONE Administration ORDERS Category Date Time Status Troponin I Q3H Lab 03/11/20 23:30 Ordered Troponin I Q3H Lab 03/12/20 02:30 Ordered - Radiology Data #1 Image(s): Chest Image Reviewed: Yes I have reviewed radiologist's interpretation Preliminary Findings: Abnormal (chronic changes ) - ECG Data Tracing #1 Normal Sinus Rhythm: Yes Ischemic changes: non-specific ST-T wave changes ECG compared to prior tracings: there are no significant changes Chest Pain HPI - General Chief Complaint: Chest Pain Stated Complaint: chest pain Time Seen by Provider: 03/11/20 20:30 Mode of Arrival: Ambulatory Source of Information: Patient, Spouse, Medical Record Limitations: No Limitations Description of Symptoms (Recalled from ER Triage Doc. by RN): pt c/o chest pain since this afternoon. pt describes it as a pressure on the left side of his chest and rates it a 10 on a 0-10 scale but on assessment pt is laughing and telling jokes at this time. - History of Present Illness HPI narrative: pt has ongoing chest pain lt side w/o fever or rash and no trauma - had recent admit with card cath - report reviewed - MD complaint: chest pain indicative
[2020-03-11 21:11] LABS: Glucose 114 mg/dl (74-100)
[2020-03-11 21:16] VITALS: BP 115/68; PULSE 73; O2SAT 94
[2020-03-11 22:02] VITALS: BP 109/73; PULSE 68; O2SAT 94
[2020-03-11 23:03] VITALS: BP 131/74; PULSE 67; RESP 18; TEMP 36.7; O2SAT 98
== END 2020-03-11 23:13 | disposition home or self-care (01) ==
PROVIDERS: Emergency Provider Emergency Medicine
DX: I20.8 Other forms of angina pectoris (principal); F41.8 Other specified anxiety disorders; G43.709 Chronic migraine without aura, not intractable, without status migrainosus; E66.9 Obesity, unspecified; Z68.38 Body mass index [BMI] 38.0-38.9, adult; Z79.899 Other long term (current) drug therapy; Z87.891 Personal history of nicotine dependence
CPT/HCPCS: 71046; 80048; 84484; 85025; 93005; 96365; 99283

== ENCOUNTER 2020-03-25 21:08 | Observation (INO) | payer MEDICARE, MEDICAID, SELFPAY ==
[2020-03-25 21:15] VITALS: BP 124/74; PULSE 94; RESP 20; TEMP 39.3; O2SAT 94; BMI 39.1
[2020-03-25 21:40] VITALS: BP 133/73; PULSE 95; RESP 18; TEMP 36.6; O2SAT 94
--- NOTE | 2020-03-25 21:47 | CT_ITS ---
PROCEDURE: CT ABDOMEN PELVIS W CON CLINICAL INDICATION: abd pain Abdominal pain with nausea and fever COMPARISON: CT ABDOMEN PELVIS W CON from 05/27/2019 TECHNIQUE: IV Contrast: 75ML OPTIRAY 350 Oral Contrast None Axial images obtained with sagittal and coronal reformats. All CT scans at the facility use one or more dose reduction, viz: automated exposure control, ma/kV adjustment per patient size (including targeted exams where dose is matched to indication, i.e. head), or iterative reconstruction technique. FINDINGS: LOWER THORAX: There are atelectatic changes in the left lung base. There are 2 nodules in the inferior aspect of the right upper lobe which measure 8 and 5 mm. 4 mm nodule right lower lobe laterally. 5 mm nodule left lower lobe posteriorly. ABDOMEN & PELVIS: The liver, gallbladder, spleen, adrenal glands, pancreas, have an unremarkable appearance. No renal or ureteral calculi. Sub cm hypodensity left kidney inferiorly and may be due to small cyst. No evidence of appendicitis, intestinal obstruction, free air, or diverticulitis. There is diverticulosis of the sigmoid colon. Urinary bladder is collapsed with thickened wall. There is chronic wedge compression changes of L2. IMPRESSION: 1. No acute abdominal or pelvic findings. 2. Bilateral sub cm pulmonary nodules. Consider [address] follow-up Dictated by: Romario Vidal MD 03/26/2020 06:57 Electronically signed by Romario Vidal MD in [place] 03/26/2020 06:57
--- NOTE | 2020-03-25 22:05 | PC.NURSE ---
2145 C/o pain to right arm, reports hurting since Sunday after working on car.
[2020-03-25 22:06] LABS: Basophils % 0.4 % (0.1-2.0); Eosinophils # 0.3 K/mm3 (0.0-0.4); Hematocrit 39.1 % (42.0-52.0); Hemoglobin 13.4 g/dL (14.1-18.0); Lymphocytes # 0.9 K/mm3 (0.7-4.5); Lymphocytes % 7.8 % (10-50); Mean Corpuscular HGB Conc 34.2 g/dL (31.8-35.4); Mean Corpuscular Volume 87.6 fl (80-94); Mean Platelet Volume 7.8 fl (7.4-10.4); Monocytes # 0.2 K/mm3 (0.1-1.0); Monocytes % 1.9 % (1.7-9.3); Neutrophils # 9.4 K/mm3 (1.8-7.8); Neutrophils % 86.9 % (37.0-80.0); Platelet Count 214 K/mm3 (142-424); Red Blood Count 4.46 M/mm3 (4.60-6.20); Red Cell Distribution Width 14.2 % (11.5-17.5); White Blood Count 10.9 K/mm3 (4.8-10.8)
[2020-03-25 22:07] LABS: MANUAL DIFFERENTIAL MANUAL DIFFERENTIAL (MANUAL DIFF)
[2020-03-25 22:12] LABS: Chloride 108 mmol/L (98-107); Potassium 3.9 mmoL/L (3.5-5.1); Sodium 138 mmol/L (136-145)
--- NOTE | 2020-03-25 22:13 | PC.NURSE ---
Patient coughing, reports it just started
[2020-03-25 22:15] LABS: Alanine Aminotransferase 30 U/L (12-78); Alkaline Phosphatase 68 U/L (38-126); Amylase 46 U/L (30-110); Anion Gap 13.9 mEq/L (5-15); Aspartate Amino Transferase 50 U/L (17-59); Bilirubin,Total 0.4 mg/dl (0.2-1.3); Blood Urea Nitrogen 14 mg/dl (9-20); Calcium 8.7 mg/dl (8.4-10.2); Carbon Dioxide 20 mmol/L (22.0-30.0); Creatinine Clearance Estimated 129 mL/min (50-200); Estimated Glomerular Filt Rate 60 ml/min (>60); GFR (African American) 72 ML/MIN (>60); Glucose 115 mg/dl (74-100); Lipase 34 U/L (23-300)
[2020-03-25 22:16] LABS: Albumin Level 4.2 g/dl (3.5-5.0); Albumin/Globulin Ratio 1.4 (1.1-1.8); Total Protein,Serum 7.2 g/dl (6.3-8.2)
--- NOTE | 2020-03-25 22:24 | XR_ITS ---
PROCEDURE: XR CHEST 2V CLINICAL HISTORY: fever Fever, smoker COMPARISON: XR CHEST 2V from 02/07/2020 XR CHEST 2V from 03/04/2020 XR CHEST 2V from 03/11/2020 CT ABDOMEN PELVIS W CON from 03/25/2020 FINDINGS: The cardiomediastinal silhouette and pulmonary vascularity are within normal limits. Patchy density noted in the left lower lobe consistent with atelectasis and/or infiltrate. The remaining lungs are clear. No acute bony abnormalities. IMPRESSION: Atelectasis or infiltrate in the left lower lobe Dictated by: Romario Vidal MD 03/26/2020 07:10 Electronically signed by Romario Vidal MD in [facility] 03/26/2020 07:10
--- NOTE | 2020-03-25 22:26 | PC.NURSE ---
patient positive for SIRS, Dr. Velasco aware.
[2020-03-25 22:31] LABS: Lactic Acid 2.7 mmol/L (0.7-2.1)
[2020-03-25 22:33] LABS: Coronavirus 19 IgG Antibody Negative (Negative); Coronavirus 19 IgM Antibody Negative (Negative)
--- NOTE | 2020-03-25 22:35 | PC.NURSE ---
pt to rad
--- NOTE | 2020-03-25 22:48 | PC.NURSE ---
notified of lactate 2.7. and sepsis with organ dysfunction. bp remains stable. discussed new orders. none noted at this time.
[2020-03-25 23:00] LABS: Eosinophils % 3 % (0-3); Lymphocytes % 9 % (10-50); Neutrophils % 86 % (42-76); Platelet Estimate Normal; Stomatocytes 1+; Total Cells Counted 100
--- NOTE | 2020-03-25 23:14 | HMH.EDGENADL ---
ED Disposition Clinical Impression: Obesity (BMI 30-39.9), Severe sepsis with acute organ dysfunction Cellulitis Qualifiers: Site of cellulitis: extremity Site of cellulitis of extremity: lower extremity Laterality: left Qualified Code(s): L03.116 - Cellulitis of left lower limb Disposition: Admitted as Observation Condition on Discharge: Good Referrals: Dio Albarado APRN [Primary Care Provider] - - Critical Care Critical Care Time: No Attestation: On 03/25/20, the high probability of a clinically significant, sudden or life threatening deterioration of the following system(s) required my full and direct attention, intervention and personal management. The time I documented below is in addition to time spent performing reported procedures but includes the following listed in this critical care notation. Medical Decision Making - Medical Records Medical records reviewed: Yes: I reviewed the patient's medical records. - Jonathan Inquiry Pt receiving controlled substance: No Vital Signs: 03/25/20 21:15 03/25/20 21:40 Temperature 102.7 F H 97.8 F Temperature Source Oral Oral Pulse Rate [Right] 94 H 95 H Respiratory Rate 20 18 Blood Pressure [Right Arm] 124/74 133/73 Blood Pressure Mean [Right Arm] 90 93 Blood Pressure Source [Right Arm] Automatic Cuff Automatic Cuff Blood Pressure Position [Right Arm] Sitting Sitting 02 Sat by Pulse Oximetry 94 L 94 L Oxygen Delivery Method Room Air Room Air Oxygen Flow Rate (LPM) 97 - Lab Data Lab results reviewed: Yes: I reviewed the patient's lab results. Lab Results 03/25/20 21:30: WBC 10.9 H, RBC 4.46 L, Hgb 13.4 L, Hct 39.1 L, MCV 87.6, MCH 30.0, MCHC 34.2, RDW 14.2, Plt Count 214, MPV 7.8, Neut % (Auto) 86.9 H, Lymph % (Auto) 7.8 L, [place] % (Auto) 1.9, Eos % (Auto) 3.0, Baso % (Auto) 0.4, Neut # (Auto) 9.4 H, Lymph # (Auto) 0.9, [place] # (Auto) 0.2, Eos # (Auto) 0.3, Baso # (Auto) 0.0, Total Counted 100, Neutrophils % (Manual) 86 H, Lymphocytes % (Manual) 9 L, Eosinophils % (Manual) 3, Basophils % (Manual) 2.0 H, Platelet Estimate Normal, RBC Morphology Not Reportable, Stomatocytes 1+ 03/25/20 21:30: Sodium 138, Potassium 3.9, Chloride 108 H, Carbon Dioxide 20 L, Anion Gap 13.9, BUN 14, Creatinine 1.30 H, Estimated Creat Clear 129, Estimated GFR 60, Est GFR ( Amer) 72, Glucose 115 H, Calcium 8.7, Total Bilirubin 0.4, AST 50, ALT 30, Alkaline Phosphatase 68, Total Protein 7.2, Albumin 4.2, Globulin 3.0, Albumin/Globulin Ratio 1.4, Amylase 46, Lipase 34 03/25/20 21:30: Lactate 2.7 H 03/25/20 21:30: SARS-CoV-2 IgG Ab (Rapid) Negative, SARS-CoV-2 IgM Ab (Rapid) Negative Result diagrams: 03/25/20 21:30 03/25/20 21:30 Orders (Tests/Meds): ED MEDICATIONS Generic Name Dose Route Start Last Admin Trade Name Freq PRN Reason Stop Dose Admin Sodium Chloride 1,000 mls @ 999 mls/hr 03/25/20 22:00 03/25/20 21:50 Sod Chlor 0.9% 1000ml Bag IV 03/25/20 23:00 999 mls/hr .Q1H1M JABARI Administration Discontinued Medications Generic Name Dose Route Start Last Admin Trade Name Freq PRN Reason Stop Dose Admin Acetaminophen 1,000 mg 03/25/20 21:48 03/25/20 21:50 Tylenol 500mg Tablet PO 03/25/20 21:49 1,000 mg ONCE ONE Administration ORDERS Category Date Time Status CT abdomen pelvis w con Stat Cat Scan 03/25/20 21:47 Ordered Chest XR 2 view (NOT portable) [XR chest 2V] Stat Exams 03/25/20 22:24 Ordered Urinalysis and Microscopic Stat Lab 03/25/20 21:47 Ordered Blood Culture Stat Micro 03/25/20 21:30 Received - Radiology Data #1 Image(s): Chest Image Reviewed: Yes I reviewed the patient's radiology image Preliminary Findings: Normal/NAD - CT Data CT Scan: Abdomen, Pelvis Time Received: 23:[address] Reviewed: Yes: I have viewed the radiologist's interpretation Preliminary Findings: Normal/NAD General Adult HPI - General Chief complaint: PAIN Stated complaint: Pain L Pain,Swollen,Chills,Vomiting Time Seen by Provider
--- NOTE | 2020-03-25 23:24 | PC.NURSE ---
ambulated to bathroom with standby assist.
--- NOTE | 2020-03-25 23:27 | PC.NURSE ---
rn spoke with [facility] d -for lovenox dosing.
--- NOTE | 2020-03-25 23:28 | PC.NURSE ---
medical housekeeper requests if covid swab is needed; denies at this time.
[2020-03-25 23:29] LABS: Microscopic, Urine URINE MICROSCOPIC (MICROSCOPIC)
[2020-03-25 23:31] LABS: Appearance,Urine CLEAR (Clear); Bilirubin,Urine Negative (Negative); Blood, Urine Negative (Negative); Color,Urine YELLOW (Yellow); Glucose,Urine (UA) Negative (Negative); Ketones,Urine Negative (Negative); Leukocyte Esterase,Urine Negative (Negative); Nitrate,Urine Negative (Negative); PH,Urine 7.5 (5.0-8.5); Protein,Urine Negative (Negative)
[2020-03-25 23:32] LABS: Bacteria,Urine Trace /lpf; Squamous Epithelial Cell,Urine Occasional #/hpf (0-5)
[2020-03-25 23:54] VITALS: BP 133/73; PULSE 93; RESP 18; TEMP 36.4; O2SAT 98
[2020-03-26] VITALS (8 sets, daily range): BP systolic 104–137; BP diastolic 61–83; PULSE 74–90; RESP 17–20; TEMP 36.7–37.8; O2SAT 93–96; BMI 37.8
--- NOTE | 2020-03-26 00:06 | PC.NURSE ---
patient up to floor via wheelchair.
[2020-03-26 01:40] LABS: Reflex Lactic Add Lactic Reflex
[2020-03-26 02:31] LABS: Lactic Acid Follow Up (RFLX 1) 1.4 mmol/L (0.7-2.1)
--- NOTE | 2020-03-26 03:49 | PC.NURSE ---
Pt new admit this shift d/t cellulitis of LLE and severe sepsis. LLE is tender, warm to the touch, swollen w/ erythema present. LLE cleaned and elevated on pillow. Pt did c/o a headache. call center support consultant MD called and gave orders for tylenol PRN. Pt is tolerating RA and vitals have been stable since arrival to floor. Family is present at bedside. Medications verified and locked in pt drawer.
--- NOTE | 2020-03-26 07:29 | P.CONPHA_ITS ---
[facility] Pharmacy VTE Monitoring - Patient Demographics Admission date: 03/25/20 Report Date: 03/26/20 Time: 07:29 Allergies/Adverse Reactions: Patient Allergies No Known Allergies Allergy (Verified 03/12/20 09:13) Height: 1.8 m Weight: 123.094 kg Patient Problems: Current Active Problems Obesity (BMI 30-39.9) (Acute) Cellulitis (Acute) Severe sepsis with acute organ dysfunction (Acute) - VTE Risk Labs: VTE Related Lab Results Hgb 13.4 g/dL (14.1-18.0) L 03/25/20 21:30 Hct 39.1 % (42.0-52.0) L 03/25/20 21:30 Plt Count 214 K/mm3 (142-424) 03/25/20 21:30 BUN 14 mg/dl (9-20) 03/25/20 21:30 Creatinine 1.30 mg/dl (0.66-1.25) H 03/25/20 21:30 Estimated Creat Clear 129 mL/min (50-200) 03/25/20 21:30 Was VTE Risk Assessment Performed: Yes VTE Score: 3 VTE Risk Level: Low Risk - Prophylaxis VTE Prophylaxis Ordered?: Yes Types of VTE Prophylaxis: IPCS Thigh High Location of Applied Device: Bilateral Lower Extremeties - VTE Diagnosis Confirmed Treatment or plan recommended: Continue Current Treatment
--- NOTE | 2020-03-26 08:00 | CA_ITS ---
APPROVED REPORT Left Lower Extremity Venous Study for DVT. Fire Regulator: CT Indications Lower Extremity Pain: Lower Extremity Edema: Left History of Smoking swollen lt lower leg, pt has a blister on back of calf, red and hot to touch. Risk Factors Obesity Vein Imaging CFV (L): compressive, spontaneous, phasic, augmentation SFJ (L): compressive, spontaneous, phasic, augmentation FEM (L): compressive, spontaneous, phasic, augmentation POP (L): compressive, spontaneous, phasic, augmentation DFV (L): compressive, spontaneous, phasic, augmentation PTV (L): compressive, spontaneous, phasic, augmentation GSV (L): Not Visualized SSV (L): Not Visualized Peroneals (L):compressive, spontaneous, phasic, augmentation GAS (L): compressive, spontaneous, phasic, augmentation Findings LLE negative for DVT/SVT. Vessels compressible. Mid calf difficult to image due to edema. B-Mode imaging of the left groin suggests prominent lymph nodes measuring approximately 3 cm. Conclusion LLE negative for DVT/SVT. Vessels compressible. Mid calf difficult to image due to edema. B-Mode imaging of the left groin suggests mildly prominent lymph nodes measuring approximately 3 cm. Electronically signed by : Romario Vidal MD 03/26/2020 08:58:55
--- NOTE | 2020-03-26 08:20 | HMH.PHAINT ---
MED REC-COMPARED MED LIST WITH RX BOTTLES.
--- NOTE | 2020-03-26 09:20 | HMH.HP ---
*Admission Date: 03/25/20 *Chief complaint: fever *History of present illness: 45 yr old male presents with c/o left leg pain and fever since this am. Reports approximate one hour ago, had nausea, vomiting and abd pain, denies any diarrhea. Admitted for cellulits due to fever. cultures obtained. venous doppler to r/o dvt. [facility] History I have reviewed the patient's past medical history: Yes Medical History: Reports:: Anxiety, Asthma, Depression, Gastroesophageal Reflux Disease(GERD), Hyperlipidemia, Hypertension, Migraine Denies:: Cancer, Diabetes Mellitus Type 1, Diabetes Mellitus Type 2, MRSA *Have you ever received a pneumonia vaccine?: Yes (pt thinks so ) *Have you received a flu vaccine this season?: Yes Other Surgeries: Yes: Appendectomy, Cardiac Catheterization, Other Amputation: No Fractures: No - *Social History Educational Level: Attended High School Smoking Status: Former smoker Tobacco Type: cigarettes # Packs/Day (cigarettes): 1 #Yrs smoked (if former smoker): 30 Alcohol Intake: current Alcohol Intake Frequency:: holidays/special occasions only Substance Use Type: denies use *Occupational Status:: disabled Housing: house Household Members: spouse, family *Travel in the last 8 weeks: None - Psychiatric History Pschychiatric History:: Reports:: Anxiety, Depression Family Hx:: Coronary Artery Disease, Hyperlipidemia, Hypertension Review of Systems - Review of Systems Review of systems:: pertinent systems reviewed and negative unless documented below - Constitutional Reports fever(s), Denies body ache(s) - Eyes Denies change in vision - ENT Denies change in voice, Denies sore throat - *Cardiovascular Reports leg sores, Denies chest pain at rest - *Respiratory Denies chest congestion - *Gastrointestinal Denies bloating, Denies nausea, Denies vomiting - *Genitourinary Denies urinary frequency - *Musculoskeletal Denies body aches - Integumentary/Breasts Denies rash - *Neurologic Denies localized weakness, Denies headache(s), Denies seizure-like activity - Psychiatric Denies anxiety - Endocrine Denies excessive sweating - Hematologic/Lymphatic Denies easy bruising - Allergic/Immunologic Denies itchy eyes Meds Home Medications Medication Instructions Recorded Confirmed Type diazepam 2 mg tablet 2 mg PO DAILY PRN #30 tab 02/03/20 03/26/20 Rx risperiDONE [Risperidone] 1 mg PO BID 03/04/20 03/26/20 History fluoxetine 40 mg capsule 40 mg PO DAILY #30 cap 03/09/20 03/26/20 Rx fluticasone furoate 100 1 inh INHALATION DAILY #28 each 03/09/20 03/26/20 Rx mcg-vilanterol 25 mcg/dose inhalation powder fluticasone propionate 50 1 spray INTRANASAL DAILY #9.9 ml 03/09/20 03/25/20 Rx mcg/actuation nasal spray,suspension gabapentin 800 mg tablet 800 mg PO TID #90 tab 03/09/20 03/26/20 Rx montelukast 10 mg tablet 10 mg PO QPM #30 tab 03/09/20 03/26/20 Rx omeprazole 40 mg capsule,delayed 40 mg PO DAILY #30 cap 03/09/20 03/26/20 Rx release topiramate 100 mg tablet 100 mg PO DAILY #30 tab 03/09/20 03/26/20 Rx Metoprolol Succinate [Metoprolol 25 mg PO DAILY 03/25/20 03/26/20 History Succinate 25mg Tablet*] Ranolazine [Ranolazine ER] 500 mg PO BID 03/25/20 03/26/20 History Albuterol Sulfate [Albuterol 2 puffs IH Q4HP PRN 03/26/20 03/26/20 History Sulfate Hfa] aspirin 81 mg chewable tablet 81 mg PO DAILY #90 tab 03/26/20 03/26/20 Rx atorvastatin 40 mg tablet 40 mg PO HS #90 tab 03/26/20 Rx Allergies Allergy/AdvReac Type Severity Reaction Status Date / Time No Known Allergies Allergy Verified 03/12/20 09:13 Exam Vital signs and Labs for Last 24 Hours: Temp Pulse Resp BP Pulse Ox 98.2 F 82 20 136/83 95 03/26/20 08:00 03/26/20 08:00 03/26/20 08:00 03/26/20 08:00 03/26/20 08:00 Laboratory Results - last 24 hr 03/25/20 21:30: WBC 10.9 H, RBC 4.46 L, Hgb 13.4 L, Hct 39.1 L, MCV 87.6, MCH 30.0, MCHC 34.2, RDW 14.2, Plt Count 214, MPV 7
--- NOTE | 2020-03-26 18:07 | PC.NURSE ---
Pt has a LLE wound/abscess with blisters. Appears to be cellulitis as area is reddened and warm. Painful to touch. He got OOB and ambulated around the hallway without difficulty. Tylenol prn effective for MORROW. No other issues noted. Awaiting cx results from LLE wound.
--- NOTE | 2020-03-26 19:09 | PC.NURSE ---
report given to rosaura
--- NOTE | 2020-03-27 03:50 | PC.NURSE ---
MAIN COMPLAINT HAS BEEN A H/A AND PAIN TO LLE; TX WITH TYLENOL WITH MILD EFFECTIVENESS REPORTED. BLISTERS TO LLE INCREASED IN SIZE, WARMTH AND REDNESS SURROUNDING SITE CONTINUES. LLE ELEVATED AT THIS TIME. PT. ABLE TO AMBULATE INDEPENDENTLY AND EXPERIENCES SOME PAIN WITH AMBULATION. NO C/O N/V/D, SOA OR DIZZINESS THIS SHIFT.
[2020-03-27 04:00] VITALS: BP 100/56; PULSE 74; RESP 18; TEMP 36.6; O2SAT 100
[2020-03-27 04:27] VITALS: BMI 38.0
[2020-03-27 06:41] LABS: Basophils % 0.5 % (0.1-2.0); Eosinophils # 0.5 K/mm3 (0.0-0.4); Eosinophils % 9.1 % (0.1-12.0); Hematocrit 36.9 % (42.0-52.0); Hemoglobin 12.9 g/dL (14.1-18.0); Lymphocytes # 1.1 K/mm3 (0.7-4.5); Lymphocytes % 18.4 % (10-50); Mean Corpuscular HGB Conc 35.1 g/dL (31.8-35.4); Mean Corpuscular Hemoglobin 30.1 pg (27.0-31.2); Mean Corpuscular Volume 85.8 fl (80-94); Monocytes # 0.3 K/mm3 (0.1-1.0); Monocytes % 5.5 % (1.7-9.3); Neutrophils % 66.6 % (37.0-80.0); Platelet Count 199 K/mm3 (142-424); Red Cell Distribution Width 14.3 % (11.5-17.5)
[2020-03-27 06:48] LABS: Chloride 110 mmol/L (98-107)
[2020-03-27 06:49] LABS: Sodium 136 mmol/L (136-145)
[2020-03-27 06:52] LABS: Blood Urea Nitrogen 10 mg/dl (9-20); Carbon Dioxide 19 mmol/L (22.0-30.0); Creatinine Clearance Estimated 148 mL/min (50-200); Estimated Glomerular Filt Rate 72 ml/min (>60); GFR (African American) 88 ML/MIN (>60); Glucose 114 mg/dl (74-100)
[2020-03-27 07:36] VITALS: BP 107/67; PULSE 73; RESP 19; TEMP 36.8; O2SAT 96
--- NOTE | 2020-03-27 08:30 | HMH.ACPN2 ---
Internal Medicine - PN: Subj *Date: 03/27/20 *Time: 08:30 Interval history: doing better - less indurated - no fever Exam Vital signs and Labs for Last 24 Hours: Temp Pulse Resp BP Pulse Ox 98.3 F 73 19 107/67 L 96 03/27/20 07:36 03/27/20 07:36 03/27/20 07:36 03/27/20 07:36 03/27/20 07:36 Laboratory Results - last 24 hr 03/27/20 06:25: WBC 6.0 D, RBC 4.30 L, Hgb 12.9 L, Hct 36.9 L, MCV 85.8, MCH 30.1, MCHC 35.1, RDW 14.3, Plt Count 199, MPV 8.0, Neut % (Auto) 66.6, Lymph % (Auto) 18.4, [place] % (Auto) 5.5, Eos % (Auto) 9.1, Baso % (Auto) 0.5, Neut # (Auto) 4.0, Lymph # (Auto) 1.1, [place] # (Auto) 0.3, Eos # (Auto) 0.5 H, Baso # (Auto) 0.0 03/27/20 06:25: Sodium 136, Potassium 4.0, Chloride 110 H, Carbon Dioxide 19 L, Anion Gap 11.0, BUN 10 D, Creatinine 1.10, Estimated Creat Clear 148, Estimated GFR 72, Est GFR ( Amer) 88 D, Glucose 114 H, Calcium 8.0 L I & O for Last 24 hours: Intake & Output 03/24/20 03/25/20 03/26/20 03/27/20 11:59 11:59 11:59 11:59 Intake Total 2445 / 2445 3486 / 3486 Output Total 1450 / 1450 3450 / 3450 Balance 995 / 995 36 / 36 Weight 271 lb 6 oz 272 lb 3 oz Microbiology Reports for the Last 24 Hours: Microbiology 03/26/20 08:25 Leg,Left - Aspirate Gram Stain - Final - Constitutional no acute distress, obese - *Routine HEENT Exam Head: Present: normocephalic Eye: Present: EOMI, PERRL ENT: Present: mucous membranes dry - *Routine Neck Exam Present: supple - *Routine Respiratory Exam Absent: respiratory distress - *Routine Cardiovascular Exam Present: RRR - *Routine Abdominal Exam Present: soft - *Routine Extremities Exam Comments: lower leg improved - *Routine Skin Exam Present: intact - *Routine Neurological Exam Present: alert, CN II-XII intact - Routine Psychiatric Exam Present: normal affect Assessment and Plan (1) Cellulitis Current visit: Yes Status: Acute Qualifiers: Site of cellulitis: extremity Site of cellulitis of extremity: lower extremity Laterality: left Qualified Code(s): L03.116 - Cellulitis of left lower limb Category: Medical Code(s): L03.90 - Cellulitis, unspecified (2) Obesity (BMI 30-39.9) Current visit: Yes Status: Acute Category: Medical Code(s): E66.9 - Obesity, unspecified
--- NOTE | 2020-03-27 08:58 | PC.NURSE ---
patient walking cui at this time
--- NOTE | 2020-03-27 13:00 | PC.NURSE ---
THIS RN ALONG WITH GENARO LEE, RN RINSED LEFT LOWER LEG WITH BETADINE, USING A SCALPEL, DRAINED 2 LARGE BLISTERS AND 5 SMALL BLISTERS. SEROSANGUINEOUS DRAINAGE NOTED. AREA CLEANED AND COVERED WITH NON ADHERENT GAUZE AND SEALED WITH TEGADERM. PATIENT TOLERATED WELL. PATIENT STATED DURING HIS SHOWER THE BLISTER THAT APPEARED TO HAVE BLOOD IN IT, POPPED IN THE SHOWER. THIS RN CLEANED AREA AND COVERED ALONG WITH ABOVE MENTIONED. NO OTHER NEEDS OR CONCERNS AT THIS TIME.
[2020-03-27 16:00] VITALS: BP 114/64; PULSE 62; RESP 18; TEMP 36.6; O2SAT 96
[2020-03-27 16:30] VITALS: BP 137/77; PULSE 58; RESP 20; O2SAT 98
--- NOTE | 2020-03-27 16:32 | ECG_ITS ---
APPROVED REPORT Exam: Resting ECG HR:54 bpm ECG Measurements Heart Rate 54 AXES MD 208 P 37 QRSd 92 QRS 20 QT 454 T 33 QTc 430 <Conclusion> Sinus bradycardia Inferior infarct, age undetermined Abnormal ECG Electronically signed by : Carlos Noland, 03/30/2020 14:08:18
--- NOTE | 2020-03-27 17:31 | PC.NURSE ---
1630 PATIENT CALLED AND COMPLAINED OF CHEST PAIN, VITALS WERE: BP: 137/77 PULSE: 58 O2: 98 RA. STAT ECG PERFORMED AND READ BY DR. DANIEL. NATALIE PANIAGUA MD. PATIENT DOES NOT COMPLAIN OF ANY PAIN AT THIS TIME. NO OTHER NEEDS OR CONCERNS.
[2020-03-27 20:00] VITALS: BP 115/67; PULSE 57; RESP 18; TEMP 36.6; O2SAT 98
[2020-03-28 04:00] VITALS: BP 105/60; PULSE 67; RESP 18; TEMP 36.5; O2SAT 97
--- NOTE | 2020-03-28 04:30 | PC.NURSE ---
Pt has slept comfortably t/o the night. Pt is A&Ox4 and bilateral lung sounds are clear. Left leg has non-pitting +1 edema. Cellulitis on the posterior left leg has dressing applied and is CDI. Pt complained of pain x1 this shift, meds administered per MAR. Pt ambulated independently around floor x3 t/o this shift. has remained at bedside. Call light is within reach, along with all other safety measures. No complaints at this time, Will continue to monitor for any changes
[2020-03-28 05:00] VITALS: BMI 38.6
[2020-03-28 08:00] VITALS: BP 111/73; PULSE 67; RESP 18; TEMP 36.8; O2SAT 96
--- NOTE | 2020-03-28 08:38 | HMH.DCSUM ---
General - General Admission date:: 03/26/20 Discharge date: 03/28/20 HPI HPI: 45 yr old male presents with c/o left leg pain and fever since this am. Reports approximate one hour ago, had nausea, vomiting and abd pain, denies any diarrhea. Admitted for cellulits due to fever. cultures obtained. venous doppler to r/o dvt. Hospital Course Hospital Course: pt has slowly improved with iv abx - pt has tolerated activity and diet - pt with dec fever and stable labs - all cultures neg at time of d/c and has neg venous doppler for dvt - pt will be treated with abx and close op follow up Objective Vital signs: Temp Pulse Resp BP Pulse Ox 98.3 F 67 18 111/73 96 03/28/20 08:00 03/28/20 08:00 03/28/20 08:00 03/28/20 08:00 03/28/20 08:00 no acute distress, obese - *Routine HEENT Exam Head: Present: normocephalic Eye: Present: EOMI, PERRL ENT: Present: mucous membranes dry - *Routine Neck Exam Absent: JVD - *Routine Respiratory Exam Absent: respiratory distress - *Routine Cardiovascular Exam Present: RRR - *Routine Abdominal Exam Present: soft - *Routine Extremities Exam Absent: calf tenderness - *Routine Skin Exam Comments: calf looks better and will redress today - - *Routine Neurological Exam Present: alert, oriented X3, CN II-XII intact - Routine Psychiatric Exam Present: normal affect Results Labs on day of discharge: Preliminary micro results at discharge 03/25/20 21:30 Blood Culture - Preliminary Blood NO GROWTH AFTER 48 HOURS 03/25/20 21:30 Blood Culture - Preliminary Blood NO GROWTH AFTER 48 HOURS 03/26/20 08:25 Wound Culture - Preliminary Leg,Left - Aspirate NO GROWTH AFTER 24 HOURS DS: Diagnosis - Discharge Diagnosis (1) Cellulitis Status: Acute (2) Obesity (BMI 30-39.9) Status: Acute (3) Severe sepsis with acute organ dysfunction Status: Acute (4) Anxiety Status: Acute (5) CAD (coronary artery disease), [place] coronary artery Status: Acute (6) HARSH (obstructive sleep apnea) Status: Acute (7) History of hyperlipidemia Status: Acute Discharge Plan - Patient Discharge Instructions ACTIVITY: Continue current activity DIET: continue same diet Patient Instructions: Cellulitis, DI for Sepsis -- Adult - Follow up Plan Disposition: Home, Self-Long-Term Medications: Home Medications Medication Instructions Recorded Confirmed Type diazepam 2 mg tablet 2 mg PO DAILY PRN #30 tab 02/03/20 03/26/20 Rx risperiDONE [Risperidone] 1 mg PO BID 03/04/20 03/26/20 History fluoxetine 40 mg capsule 40 mg PO DAILY #30 cap 03/09/20 03/26/20 Rx fluticasone furoate 100 1 inh INHALATION DAILY #28 each 03/09/20 03/26/20 Rx mcg-vilanterol 25 mcg/dose inhalation powder fluticasone propionate 50 1 spray INTRANASAL DAILY #9.9 ml 03/09/20 03/25/20 Rx mcg/actuation nasal spray,suspension gabapentin 800 mg tablet 800 mg PO TID #90 tab 03/09/20 03/26/20 Rx montelukast 10 mg tablet 10 mg PO QPM #30 tab 03/09/20 03/26/20 Rx omeprazole 40 mg capsule,delayed 40 mg PO DAILY #30 cap 03/09/20 03/26/20 Rx release topiramate 100 mg tablet 100 mg PO DAILY #30 tab 03/09/20 03/26/20 Rx Metoprolol Succinate [Metoprolol 25 mg PO DAILY 03/25/20 03/26/20 History Succinate 25mg Tablet*] Ranolazine [Ranolazine ER] 500 mg PO BID 03/25/20 03/26/20 History Albuterol Sulfate [Albuterol 2 puffs IH Q4HP PRN 03/26/20 03/26/20 History Sulfate Hfa] aspirin 81 mg chewable tablet 81 mg PO DAILY #90 tab 03/26/20 03/26/20 Rx atorvastatin 40 mg tablet 40 mg PO HS #90 tab 03/26/20 Rx Mupirocin [Bactroban 2% Ointment 1 applicatio TP BID #1 tube 03/28/20 Rx 22gm tube] cephALEXin [Keflex 500mg Cap] 500 mg PO TID #30 cap 03/28/20 Rx Prescriptions/Medication Reconciliation: New cephALEXin [Keflex 500mg Cap] 500 mg PO TID #30 cap Mupirocin [Bactroban 2% Ointment 22gm tube] 1 applicatio TP BID #1 tu
--- NOTE | 2020-03-30 23:35 | PC.NURSE ---
medical records sent to [facility].
== END 2020-03-28 09:30 | disposition home or self-care (01) ==
LOC: ER 23:36 → 2ND 03-26 12:11
PROVIDERS: Nurse Practitioner Family; Admitting Provider Emergency Medicine; Emergency Provider Emergency Medicine; PCP Nurse Practitioner Family; Visit Provider Emergency Medicine
DX: L03.116 Cellulitis of left lower limb (principal); I25.10 Atherosclerotic heart disease of native coronary artery without angina pectoris; E78.5 Hyperlipidemia, unspecified; Z87.891 Personal history of nicotine dependence
CPT/HCPCS: 36415; 71046; 74177; 80048; 80053; 81001; 82150; 83605; 83690; 85007; 85025; 86328; 87040; 87070; 87077; 87186; 87205; 93005; 93971; 96365; 96367; 96372; 99284; G0378; Q9967

== ENCOUNTER 2020-03-29 21:13 | Emergency (ER) | payer MEDICARE, MEDICAID, SELFPAY ==
[2020-03-29 21:31] VITALS: BP 0/0; PULSE 0; RESP 0; TEMP -17.7; TEMP 0
== END 2020-03-29 21:32 | disposition left against medical advice (07) ==
LOC: ER 21:27
PROVIDERS: Emergency Provider Emergency Medicine; PCP Emergency Medicine
DX: Z53.21 Procedure and treatment not carried out due to patient leaving prior to being seen by health care provider (principal); M79.662 Pain in left lower leg
CPT/HCPCS: G0463; 99211

== ENCOUNTER → 2020-05-03 10:25 | Outpatient (CLI) | payer MEDICARE, MEDICAID, SELFPAY ==
[2020-05-03 13:18] LABS: Coronavirus 19 IgG Antibody Negative (Negative); Coronavirus 19 IgM Antibody Negative (Negative)
== END ==
PROVIDERS: Visit Provider Nurse Practitioner Family
DX: Z01.818 Encounter for other preprocedural examination (principal)
CPT/HCPCS: 36415; 86328

== ENCOUNTER → 2020-05-04 19:50 | Outpatient (CLI) | payer MEDICARE, MEDICAID, SELFPAY | PROVIDERS: PCP Nurse Practitioner Family; Visit Provider Nurse Practitioner Family | DX: G47.9 Sleep disorder, unspecified (principal); R06.83 Snoring; R40.0 Somnolence; E66.9 Obesity, unspecified | CPT/HCPCS: 95810 ==

== ENCOUNTER 2020-05-06 15:33 | Emergency (ER) | payer MEDICARE, MEDICAID, SELFPAY ==
--- NOTE | 2020-05-06 15:25 | ECG_ITS ---
APPROVED REPORT Exam: Resting ECG HR:73 bpm ECG Measurements Heart Rate 73 AXES OR 184 P 28 QRSd 82 QRS -16 QT 400 T 32 QTc 440 <Conclusion> Normal sinus rhythm Minimal voltage criteria for LVH, may be normal variant Possible Lateral infarct, age undetermined Inferior infarct, age undetermined Abnormal ECG Electronically signed by : Carlos Noland, 05/09/2020 21:18:45
[2020-05-06 15:33] VITALS: BP 139/87; PULSE 75; RESP 17; TEMP 36.8; O2SAT 96; BMI 25.2
--- NOTE | 2020-05-06 15:39 | XR_ITS ---
PROCEDURE: XR CHEST 2V CLINICAL HISTORY: chest pain Smoker. COMPARISON: XR CHEST 2V from 03/25/2020 FINDINGS: No acute bony abnormalities. The cardiomediastinal silhouette and pulmonary vascularity are within normal limits. The lungs are somewhat under expanded. Bilateral perihilar mild bronchial wall and diffuse interstitial thickening demonstrated, compatible with chronic bronchitis. There is no demonstrated consolidation, pulmonary vascular congestion or pleural effusion of the visualized lungs. IMPRESSION: 1. No acute findings. Stable appearing chest. 2. Perihilar mild bronchial wall and interstitial thickening demonstrated, compatible with chronic bronchitis. Dictated by: Rena Miller 05/06/2020 16:13 Electronically signed by Rena Miller in [place] 05/06/2020 16:13
--- NOTE | 2020-05-06 15:41 | HMH.EDGENADL ---
ED Disposition Clinical Impression: Atypical chest pain Disposition: Home, Self-Care Condition on Discharge: Good Instructions: DI for Atypical Chest Pain Additional Instructions: You have been evaluated for chest pain. Troponin is not elevated today. Please follow-up with your primary care doctor tomorrow. You may need to see cardiology again in clinic. Return to the emergency department if you have any new or worsening pain, radiation to your arm, shortness of breath, other concerns. Referrals: Dio Albarado APRN [Primary Care Provider] - Time of Disposition: 18:49 - Critical Care Critical Care Time: No Attestation: On 05/06/20, the high probability of a clinically significant, sudden or life threatening deterioration of the following system(s) required my full and direct attention, intervention and personal management. The time I documented below is in addition to time spent performing reported procedures but includes the following listed in this critical care notation. Medical Decision Making - Medical Records Medical records reviewed: Yes: I reviewed the patient's medical records. - Jonathan Inquiry Pt receiving controlled substance: No Vital Signs: 05/06/20 15:33 05/06/20 16:20 05/06/20 18:00 Temperature 98.2 F Temperature Source Oral Pulse Rate [Left Radial] 75 65 61 Respiratory Rate 17 22 20 Blood Pressure [Right Arm] 139/87 112/72 122/80 Blood Pressure Mean [Right Arm] 104 85 94 Blood Pressure Source [Right Arm] Automatic Cuff Automatic Cuff Automatic Cuff Blood Pressure Position [Right Arm] Sitting Supine Supine 02 Sat by Pulse Oximetry 96 95 96 Oxygen Delivery Method Room Air Room Air Room Air 05/06/20 18:30 Temperature Temperature Source Pulse Rate [Left Radial] 58 L Respiratory Rate 20 Blood Pressure [Right Arm] 114/80 Blood Pressure Mean [Right Arm] 91 Blood Pressure Source [Right Arm] Automatic Cuff Blood Pressure Position [Right Arm] Supine 02 Sat by Pulse Oximetry 95 Oxygen Delivery Method Room Air - Lab Data Lab Results 05/06/20 15:40: WBC 9.2, RBC 4.35 L, Hgb 13.4 L, Hct 37.8 L, MCV 86.8, MCH 30.9, MCHC 35.6 H, RDW 14.6, Plt Count 244, MPV 7.7, Neut % (Auto) 63.4, Lymph % (Auto) 27.2, [place] % (Auto) 3.7, Eos % (Auto) 5.2, Baso % (Auto) 0.4, Neut # (Auto) 5.8, Lymph # (Auto) 2.5, [place] # (Auto) 0.3, Eos # (Auto) 0.5 H, Baso # (Auto) 0.0 05/06/20 15:40: Sodium 137, Potassium 3.9, Chloride 105, Carbon Dioxide 22, Anion Gap 13.9, BUN 14, Creatinine 1.20, Estimated Creat Clear 90, Estimated GFR 65, Est GFR ( Amer) 79, Glucose 118 H, Calcium 9.3, Troponin I < 0.01 05/06/20 18:00: Troponin I < 0.01 Result diagrams: 05/06/20 15:40 05/06/20 15:40 Orders (Tests/Meds): ED MEDICATIONS Generic Name Dose Route Start Last Admin Trade Name Freq PRN Reason Stop Dose Admin Sodium Chloride 8 ml 05/06/20 15:39 Sodium Chloride 0.9% 10ml Vial IV 06/05/20 15:38 NEEDED PRN dilute pepcid Discontinued Medications Generic Name Dose Route Start Last Admin Trade Name Freq PRN Reason Stop Dose Admin Aspirin 243 mg 05/06/20 15:39 05/06/20 15:44 Aspirin 81mg Chewable Tablet PO 05/06/20 15:40 243 mg ONCE ONE Administration Famotidine 20 mg 05/06/20 15:39 05/06/20 15:43 Pepcid 20mg/2ml Vial IV 05/06/20 15:40 20 mg ONCE ONE Administration Metoclopramide HCl 10 mg 05/06/20 15:39 05/06/20 15:43 Reglan 10mg/2ml Vial IVP 05/06/20 15:40 10 mg ONCE ONE Administration ORDERS Category Date Time Status Troponin I Q3H Lab 05/06/20 21:45 Ordered - ECG Data Tracing #1 Sinus rhythm with ventricular rate of 73 bpm. QRS 184, QTc 440. T wave flattening in 3 and aVF. - ZACK Score for Non-Stemi Age of Patient: 40-49 years old Heart Rate: 70-89 bpm Systolic Blood Pressure: 120-139 mmhg Serum Creatinine: 1.20-1.59 mg/dl CHF [place] Class: I-No CHF Other Risk Factors: None Non-Stemi Risk Score: 78 Medical Decision
[2020-05-06 16:08] LABS: Basophils % 0.4 % (0.1-2.0); Eosinophils # 0.5 K/mm3 (0.0-0.4); Eosinophils % 5.2 % (0.1-12.0); Hematocrit 37.8 % (42.0-52.0); Hemoglobin 13.4 g/dL (14.1-18.0); Lymphocytes # 2.5 K/mm3 (0.7-4.5); Lymphocytes % 27.2 % (10-50); Mean Corpuscular HGB Conc 35.6 g/dL (31.8-35.4); Mean Corpuscular Hemoglobin 30.9 pg (27.0-31.2); Mean Corpuscular Volume 86.8 fl (80-94); Mean Platelet Volume 7.7 fl (7.4-10.4); Monocytes # 0.3 K/mm3 (0.1-1.0); Monocytes % 3.7 % (1.7-9.3); Neutrophils # 5.8 K/mm3 (1.8-7.8); Neutrophils % 63.4 % (37.0-80.0); Platelet Count 244 K/mm3 (142-424); Red Blood Count 4.35 M/mm3 (4.60-6.20); Red Cell Distribution Width 14.6 % (11.5-17.5); White Blood Count 9.2 K/mm3 (4.8-10.8)
[2020-05-06 16:11] LABS: Chloride 105 mmol/L (98-107); Potassium 3.9 mmoL/L (3.5-5.1); Sodium 137 mmol/L (136-145)
[2020-05-06 16:14] LABS: Anion Gap 13.9 mEq/L (5-15); Blood Urea Nitrogen 14 mg/dl (9-20); Calcium 9.3 mg/dl (8.4-10.2); Carbon Dioxide 22 mmol/L (22.0-30.0); Creatinine Clearance Estimated 90 mL/min (50-200); Estimated Glomerular Filt Rate 65 ml/min (>60); GFR (African American) 79 ML/MIN (>60); Glucose 118 mg/dl (74-100)
[2020-05-06 16:20] VITALS: BP 112/72; PULSE 65; RESP 22; O2SAT 95
[2020-05-06 16:55] LABS: Troponin I < 0.01 ng/ml (0.00-0.034)
[2020-05-06 18:00] VITALS: BP 122/80; PULSE 61; RESP 20; O2SAT 96
[2020-05-06 18:30] VITALS: BP 114/80; PULSE 58; RESP 20; O2SAT 95
[2020-05-06 18:36] LABS: Troponin I < 0.01 ng/ml (0.00-0.034)
[2020-05-06 18:55] VITALS: BP 114/80; PULSE 60; RESP 20; TEMP 36.8; O2SAT 95
== END 2020-05-06 18:56 | disposition home or self-care (01) ==
PROVIDERS: Emergency Provider Emergency Medicine; PCP Nurse Practitioner Family
DX: R07.89 Other chest pain (principal); I25.10 Atherosclerotic heart disease of native coronary artery without angina pectoris; F41.8 Other specified anxiety disorders; J45.909 Unspecified asthma, uncomplicated; K21.9 Gastro-esophageal reflux disease without esophagitis; E78.5 Hyperlipidemia, unspecified; I10 Essential (primary) hypertension; G43.709 Chronic migraine without aura, not intractable, without status migrainosus; Z87.891 Personal history of nicotine dependence; Z79.899 Other long term (current) drug therapy
CPT/HCPCS: 71046; 80048; 84484; 85025; 93005; 96374; 96375; 99284

== ENCOUNTER 2020-05-07 21:22 | Emergency (ER) | payer MEDICARE, MEDICAID, SELFPAY ==
--- NOTE | 2020-05-07 21:21 | ECG_ITS ---
APPROVED REPORT Exam: Resting ECG HR:75 bpm ECG Measurements Heart Rate 75 AXES GA 188 P 44 QRSd 82 QRS 5 QT 404 T 45 QTc 451 <Conclusion> Normal sinus rhythm Possible Lateral infarct, age undetermined Inferior infarct, age undetermined Abnormal ECG Electronically signed by : Carlos Noland, 05/09/2020 21:15:54
[2020-05-07 21:22] VITALS: BP 120/77; PULSE 80; RESP 17; TEMP 36.6; O2SAT 96; BMI 38.0
[2020-05-07 21:27] VITALS: BMI 36.9
--- NOTE | 2020-05-07 21:29 | CT_ITS ---
PROCEDURE: CT ANGIO CHEST CLINCIAL INDICATION: chest pain Chest pain and shortness of breath COMPARISON: No exams were available for comparison TECHNIQUE: IV Contrast: 70ML OPTIRAY 350 Axial images obtained with sagittal and coronal reformats. All CT scans at the facility use one or more dose reduction, viz: automated exposure control, ma/kV adjustment per patient size (including targeted exams where dose is matched to indication, i.e. head), or iterative reconstruction technique. FINDINGS: No evidence of aortic aneurysm or dissection. Pulmonary arterial opacification is limited secondary to bolus timing. No central pulmonary embolus apparent. Peripheral pulmonary arteries not well delineated due to under opacification. There are 2 nodules in the right upper lobe anteriorly measuring 9 and 4 mm. There is six mm nodule in the right lower lobe. Atelectatic changes are present in the left lower lobe. There is a 4 mm noncalcified nodule in the left lower lobe. There are degenerative changes in the thoracic spine with mild wedging involving T8. This appears chronic and may be developmental. Stomach is filled with undigested material slightly distended. IMPRESSION: 1. No central pulmonary embolus. Less than optimal peripheral pulmonary arterial opacification. 2. Left lower lobe atelectasis. 3. Bilateral pulmonary nodules as detailed above measuring up to 9 mm. Recommend 3 month follow-up to confirm short term stability. Dictated by: Romario Vidal MD 05/10/2020 08:58 Electronically signed by Romario Vidal MD in [place] 05/10/2020 08:58
--- NOTE | 2020-05-07 21:30 | XR_ITS ---
PROCEDURE: XR CHEST 2V CLINICAL HISTORY: chest pain COMPARISON: XR CHEST 2V from 05/06/2020 FINDINGS: The cardiomediastinal silhouette and pulmonary vascularity are within normal limits. Patchy atelectasis or infiltrate is noted in the left lower lobe. No acute bony abnormalities. IMPRESSION: Atelectasis or infiltrate in the left lower lobe Dictated by: Romario Vidal MD 05/07/2020 22:42 Electronically signed by Romario Vidal MD in [facility] 05/07/2020 22:42
[2020-05-07 21:41] LABS: Anion Gap 17.3 mEq/L (5-15); Blood Urea Nitrogen 15 mg/dl (9-20); Calcium 9.4 mg/dl (8.4-10.2); Carbon Dioxide 20 mmol/L (22.0-30.0); Chloride 107 mmol/L (98-107); Creatinine Clearance Estimated 94 mL/min (50-200); Estimated Glomerular Filt Rate 47 ml/min (>60); GFR (African American) 57 ML/MIN (>60); Glucose 113 mg/dl (74-100); Potassium 4.3 mmoL/L (3.5-5.1); Sodium 140 mmol/L (136-145)
[2020-05-07 21:47] LABS: Basophils # 0.1 K/mm3 (0-0.2); Basophils % 0.6 % (0.1-2.0); Eosinophils # 0.4 K/mm3 (0.0-0.4); Eosinophils % 4.8 % (0.1-12.0); Hematocrit 38.2 % (42.0-52.0); Hemoglobin 13.6 g/dL (14.1-18.0); Lymphocytes % 31.8 % (10-50); Mean Corpuscular HGB Conc 35.5 g/dL (31.8-35.4); Mean Corpuscular Volume 87.2 fl (80-94); Mean Platelet Volume 7.4 fl (7.4-10.4); Monocytes # 0.5 K/mm3 (0.1-1.0); Monocytes % 5.6 % (1.7-9.3); Neutrophils # 5.3 K/mm3 (1.8-7.8); Neutrophils % 57.2 % (37.0-80.0); Platelet Count 219 K/mm3 (142-424); Red Blood Count 4.38 M/mm3 (4.60-6.20); Red Cell Distribution Width 14.8 % (11.5-17.5); White Blood Count 9.3 K/mm3 (4.8-10.8)
[2020-05-07 22:00] LABS: Troponin I < 0.01 ng/ml (0.00-0.034)
[2020-05-07 22:17] VITALS: BP 110/68; PULSE 67; RESP 16; O2SAT 97
--- NOTE | 2020-05-07 22:50 | HMH.EDCP ---
ED Disposition Clinical Impression: Chest pain, Atypical chest pain, GERD (gastroesophageal reflux disease), Morbid obesity due to excess calories, Acute kidney injury, Dehydration Disposition: Home, Self-Care Condition on Discharge: Good Instructions: DI for Atypical Chest Pain Additional Instructions: Call Chuy Wynn on Sunday to set up an appointment for a stress test. Prescriptions: Ondansetron [Zofran 4mg ODT] 4 mg PO TID PRN 4 Days #15 tab.rapdis PRN Reason: Nausea Transmission Status: Pending to [facility] Pharmacy # [id number] Referrals: Provider,Mack, [Primary Care Provider] - Chuy Wynn PA [Physician Director Quality Assurance] - - Critical Care Critical Care Time: No Attestation: On 05/07/20, the high probability of a clinically significant, sudden or life threatening deterioration of the following system(s) required my full and direct attention, intervention and personal management. The time I documented below is in addition to time spent performing reported procedures but includes the following listed in this critical care notation. Medical Decision Making - Medical Records Medical records reviewed: Yes: I reviewed the patient's medical records. - Jonathan Inquiry Pt receiving controlled substance: No Vital Signs: 05/07/20 21:22 05/07/20 22:17 Temperature 97.8 F Temperature Source Oral Pulse Rate [Right Brachial] 80 67 Respiratory Rate 17 16 Blood Pressure [Right Arm] 120/77 110/68 Blood Pressure Mean [Right Arm] 91 82 Blood Pressure Source [Right Arm] Automatic Cuff Automatic Cuff Blood Pressure Position [Right Arm] Sitting Sitting 02 Sat by Pulse Oximetry 96 97 Oxygen Delivery Method Room Air Room Air - Lab Data Lab results reviewed: Yes: I reviewed the patient's lab results. Lab Results 05/07/20 19:35: WBC 9.3, RBC 4.38 L, Hgb 13.6 L, Hct 38.2 L, MCV 87.2, MCH 31.0, MCHC 35.5 H, RDW 14.8, Plt Count 219, MPV 7.4, Neut % (Auto) 57.2, Lymph % (Auto) 31.8, [place] % (Auto) 5.6, Eos % (Auto) 4.8, Baso % (Auto) 0.6, Neut # (Auto) 5.3, Lymph # (Auto) 3.0, [place] # (Auto) 0.5, Eos # (Auto) 0.4, Baso # (Auto) 0.1 05/07/20 19:35: Sodium 140, Potassium 4.3, Chloride 107, Carbon Dioxide 20 L, Anion Gap 17.3 H, BUN 15, Creatinine 1.60 H D, Estimated Creat Clear 94, Estimated GFR 47 L, Est GFR ( Amer) 57 L D, Glucose 113 H, Calcium 9.4, Troponin I < 0.01 Result diagrams: 05/07/20 19:35 05/07/20 19:35 Orders (Tests/Meds): ED MEDICATIONS Generic Name Dose Route Start Last Admin Trade Name Freq PRN Reason Stop Dose Admin Sodium Chloride 1,000 mls @ 999 mls/hr 05/07/20 21:45 05/07/20 22:16 Sod Chlor 0.9% 1000ml Bag IV 05/07/20 22:45 999 mls/hr .Q1H1M JABARI Administration Discontinued Medications Generic Name Dose Route Start Last Admin Trade Name Freq PRN Reason Stop Dose Admin Aspirin 243 mg 05/07/20 21:29 05/07/20 21:30 Aspirin 81mg Chewable Tablet PO 05/07/20 21:30 243 mg ONCE ONE Administration Ioversol 75 ml 05/07/20 21:55 05/07/20 21:57 Rad-Optiray 350 150ml Vial IV 05/07/20 21:56 75 ml ONCE ONE Administration Nitroglycerin 1 gm 05/07/20 21:29 05/07/20 21:31 Nitroglycerin 1 Inch Oint Udp TD 05/07/20 21:30 1 gm ONCE ONE Administration Ondansetron HCl 4 mg 05/07/20 21:34 05/07/20 21:40 Zofran 4mg/2ml Vial IV 05/07/20 21:35 4 mg ONCE ONE Administration Sodium Chloride 10 ml 05/07/20 21:55 05/07/20 21:57 Rad-Saline Flush 10ml Syringe IV 05/07/20 21:56 10 ml ONCE ONE Administration Sodium Chloride 100 ml 05/07/20 21:55 05/07/20 21:57 Rad-Sod Chloride 0.9% 250ml IV 05/07/20 21:56 100 ml ONCE ONE Administration ORDERS Category Date Time Status CT Chest w/PE protocol [CT angio chest] Stat Cat Scan 05/07/20 21:29 Taken XR chest 2V Stat Exams 05/07/20 21:30 Taken Troponin I Q3H Lab 05/08/20 00:30 Ordered Troponin I Q3H Lab 05/08/20 03:30 Ordered - CT Data CT Scan: Abdomen, Chest Time Received
[2020-05-07 23:17] VITALS: BP 111/72; PULSE 82; RESP 19; TEMP 36.6; O2SAT 98
== END 2020-05-07 23:20 | disposition home or self-care (01) ==
PROVIDERS: Emergency Provider Family Medicine
DX: N17.9 Acute kidney failure, unspecified (principal); E86.0 Dehydration; K21.9 Gastro-esophageal reflux disease without esophagitis; E66.01 Morbid (severe) obesity due to excess calories; Z68.36 Body mass index [BMI] 36.0-36.9, adult; I10 Essential (primary) hypertension; F41.8 Other specified anxiety disorders; E78.5 Hyperlipidemia, unspecified; G43.709 Chronic migraine without aura, not intractable, without status migrainosus; Z87.891 Personal history of nicotine dependence
CPT/HCPCS: 71046; 71275; 80048; 84484; 85025; 93005; 96365; 96375; 99283; J2405; Q9967

== ENCOUNTER 2020-05-14 20:09 | Emergency (ER) | payer MEDICARE, MEDICAID, SELFPAY ==
--- NOTE | 2020-05-14 20:07 | ECG_ITS ---
APPROVED REPORT Exam: Resting ECG HR:67 bpm ECG Measurements Heart Rate 67 AXES CA 198 P 62 QRSd 90 QRS 35 QT 416 T 59 QTc 439 <Conclusion> Normal sinus rhythm Poor r wave progression - unchanged Old inf changes Abnormal ECG Electronically signed by : Carlos Noland, 05/15/2020 08:25:59
[2020-05-14 20:10] VITALS: BP 116/64; PULSE 68; RESP 16; TEMP 36.6; O2SAT 96; BMI 39.0
--- NOTE | 2020-05-14 20:22 | HMH.EDCP ---
ED Disposition Clinical Impression: Renal insufficiency Chest pain Qualifiers: Chest pain type: precordial pain Qualified Code(s): R07.2 - Precordial pain Disposition: Home, Self-Care Condition on Discharge: Good Instructions: DI for Atypical Chest Pain Additional Instructions: mack raymond to one daily Referrals: Dio Albarado APRN [Primary Care Provider] - - Critical Care Critical Care Time: No Attestation: On 05/14/20, the high probability of a clinically significant, sudden or life threatening deterioration of the following system(s) required my full and direct attention, intervention and personal management. The time I documented below is in addition to time spent performing reported procedures but includes the following listed in this critical care notation. Medical Decision Making - Medical Records Medical records reviewed: Yes: I reviewed the patient's medical records. - Jonathan Inquiry Pt receiving controlled substance: No Vital Signs: 05/14/20 20:10 Temperature 97.8 F Temperature Source Oral Pulse Rate [Left Radial] 68 Respiratory Rate 16 Blood Pressure [Right Arm] 116/64 Blood Pressure Mean [Right Arm] 81 Blood Pressure Source [Right Arm] Automatic Cuff Blood Pressure Position [Right Arm] Sitting 02 Sat by Pulse Oximetry 96 Oxygen Delivery Method Room Air - Lab Data Lab results reviewed: Yes: I reviewed the patient's lab results. Lab Results 05/14/20 20:25: WBC 9.3, RBC 4.34 L, Hgb 13.0 L, Hct 37.0 L, MCV 85.3, MCH 30.0, MCHC 35.2, RDW 14.5, Plt Count 242, MPV 7.4, Neut % (Auto) 60.2, Lymph % (Auto) 28.4, [place] % (Auto) 6.0, Eos % (Auto) 4.8, Baso % (Auto) 0.6, Neut # (Auto) 5.6, Lymph # (Auto) 2.7, [place] # (Auto) 0.6, Eos # (Auto) 0.5 H, Baso # (Auto) 0.1 05/14/20 20:25: Sodium 139, Potassium 4.5, Chloride 107, Carbon Dioxide 20 L, Anion Gap 16.5 H, BUN 21 H, Creatinine 1.40 H, Estimated Creat Clear 120, Estimated GFR 55 L, Est GFR ( Amer) 66, Glucose 114 H, Calcium 9.1, Troponin I < 0.01 Result diagrams: 05/14/20 20:25 05/14/20 20:25 Orders (Tests/Meds): ED MEDICATIONS Generic Name Dose Route Start Last Admin Trade Name Freq PRN Reason Stop Dose Admin Sodium Chloride 1,000 mls @ 999 mls/hr 05/14/20 20:30 Sod Chlor 0.9% 1000ml Bag IV 05/14/20 21:30 .Q1H1M JABARI Discontinued Medications Generic Name Dose Route Start Last Admin Trade Name Freq PRN Reason Stop Dose Admin Aspirin 243 mg 05/14/20 20:22 Aspirin 81mg Chewable Tablet PO 05/14/20 20:23 ONCE ONE ORDERS Category Date Time Status Complete Blood Count Auto Diff Stat Lab 05/14/20 20:25 Results Erythrocyte Sedimentation Rate Stat Lab 05/14/20 20:25 Results Troponin I Q3H Lab 05/14/20 23:30 Ordered Troponin I Q3H Lab 05/15/20 02:30 Ordered - ECG Data Tracing #1 Normal Sinus Rhythm: Yes Ischemic changes: non-specific ST-T wave changes ECG compared to prior tracings: there are no significant changes Chest Pain HPI - General Chief Complaint: Chest Pain Stated Complaint: chest pain Time Seen by Provider: 05/14/20 20:20 Mode of Arrival: Ambulatory Source of Information: Patient, Spouse, Medical Record Limitations: No Limitations Description of Symptoms (Recalled from ER Triage Doc. by RN): pt c/o a sharp chest pain on the left side of his chest that started this morning. pt stated he took a nap this afternoon and felt better but once he got up and moving around again the chest pain came back. - History of Present Illness HPI narrative: lt sided chest pain which has been daily and has seen card yesterday and started on nsaif - no new sx reported MD complaint: chest pain indicative of cardiac Onset (ago): day(s) Duration: constant Activity at onset: during rest Pain location: left chest Severity: moderate Quality: sharp Risk Factors for CAD: Hypertension, Family Hx of CAD Treatments prior to or on arrival for Cardiac Chest Pain: none - ZACK Score
[2020-05-14 20:35] LABS: Chloride 107 mmol/L (98-107)
[2020-05-14 20:36] LABS: Potassium 4.5 mmoL/L (3.5-5.1); Sodium 139 mmol/L (136-145)
[2020-05-14 20:38] LABS: Blood Urea Nitrogen 21 mg/dl (9-20); Creatinine Clearance Estimated 120 mL/min (50-200); Estimated Glomerular Filt Rate 55 ml/min (>60); GFR (African American) 66 ML/MIN (>60)
[2020-05-14 20:39] LABS: Anion Gap 16.5 mEq/L (5-15); Calcium 9.1 mg/dl (8.4-10.2); Carbon Dioxide 20 mmol/L (22.0-30.0); Glucose 114 mg/dl (74-100)
[2020-05-14 20:43] LABS: Basophils # 0.1 K/mm3 (0-0.2); Basophils % 0.6 % (0.1-2.0); Eosinophils # 0.5 K/mm3 (0.0-0.4); Eosinophils % 4.8 % (0.1-12.0); Lymphocytes # 2.7 K/mm3 (0.7-4.5); Lymphocytes % 28.4 % (10-50); Mean Corpuscular HGB Conc 35.2 g/dL (31.8-35.4); Mean Corpuscular Volume 85.3 fl (80-94); Mean Platelet Volume 7.4 fl (7.4-10.4); Monocytes # 0.6 K/mm3 (0.1-1.0); Neutrophils # 5.6 K/mm3 (1.8-7.8); Neutrophils % 60.2 % (37.0-80.0); Platelet Count 242 K/mm3 (142-424); Red Blood Count 4.34 M/mm3 (4.60-6.20); Red Cell Distribution Width 14.5 % (11.5-17.5); White Blood Count 9.3 K/mm3 (4.8-10.8)
[2020-05-14 20:54] LABS: Troponin I < 0.01 ng/ml (0.00-0.034)
[2020-05-14 21:07] LABS: Erythrocyte Sedimentation Rate 16 mm/hr (0-15)
[2020-05-14 21:11] VITALS: BP 122/64; PULSE 66; RESP 14; TEMP 36.6; O2SAT 98
== END 2020-05-14 21:13 | disposition home or self-care (01) ==
PROVIDERS: Emergency Provider Emergency Medicine; PCP Nurse Practitioner Family
DX: R06.00 Dyspnea, unspecified (principal); N28.9 Disorder of kidney and ureter, unspecified; E78.5 Hyperlipidemia, unspecified; I10 Essential (primary) hypertension; F41.8 Other specified anxiety disorders; K21.9 Gastro-esophageal reflux disease without esophagitis; J45.909 Unspecified asthma, uncomplicated; G43.709 Chronic migraine without aura, not intractable, without status migrainosus; Z90.49 Acquired absence of other specified parts of digestive tract; Z87.891 Personal history of nicotine dependence; Z79.899 Other long term (current) drug therapy
CPT/HCPCS: 80048; 84484; 85025; 85651; 93005; 96365; 99282; 99283

== ENCOUNTER → 2020-05-17 13:22 | Outpatient (CLI) | payer MEDICARE, MEDICAID, SELFPAY ==
--- NOTE | 2020-05-17 13:23 | CA_ITS ---
APPROVED REPORT EXAM: Comprehensive 2D, Doppler, and color-flow Echocardiogram Computer Science Professor: Ruchi Conroy RDCS Ht: 5 ft 11 in Wt: 281lbs BSA: 2.44 BP: 116/78 mmHg Indications: SOA,R/O PERICARDITIS,CP,EX SMOKER,HTN,OBESITY 2D Dimensions LVOT 2.27 cm (M/F) 1.5-2.5 M-Mode Dimensions RVDd 3.53 cm (0.9-2.6) LVDd 6.20 cm (3.5-5.7) LVDs 3.80 cm (3.5-5.7) IVSd 1.22 cm (0.6-1.1) PWd 0.95 cm (0.6-1.1) EF (Teich) 68.00% FS 38.70% EDV (Teich) 194.00 mL ESV (Teich) 62.00 mL LV Diastology E/A Ratio 1.04 Mitral Valve MV A Velocity 78.00 (40-130 cm/s) Left Ventricle Left atrium is mildly enlarged, left ventricle is normal size, mild concentric left ventricular hypertrophy, visually estimated ejection fraction 55% with no regional wall motion abnormality, grade 1 diastolic dysfunction seen without tissue Doppler evidence of raise left atrial pressure. Right Ventricle Right atrium and right ventricle are mildly enlarged with normal contractility. Aortic Valve Aortic valve is minimally thickened and fibrosed, there is no aortic stenosis or aortic insufficiency. Mitral Valve Mitral valve is grossly normal, there is mild mitral regurgitation. Tricuspid Valve Tricuspid valve is grossly normal, there is mild tricuspid regurgitation, tricuspid regurgitation jet velocity is inadequate for calculation of the right ventricular systolic pressure. Pulmonic Valve Pulmonic valve is poorly visualized. Great Vessels Aortic root is normal size. Pericardium No significant pericardial effusion noted. Conclusion 1. Mild biatrial enlargement, normal left ventricular size, mild concentric left ventricular hypertrophy, visually estimated ejection fraction 55% with no regional wall motion abnormality, grade 1 diastolic dysfunction seen without tissue Doppler evidence of raise left atrial pressure. 2. Mildly enlarged right ventricle with normal contractility. 3. Mild mitral and tricuspid regurgitation. 4. No significant pericardial effusion noted. Electronically signed by : Siddharth Cisneros, 05/17/2020 19:28:22
== END ==
PROVIDERS: PCP Nurse Practitioner Family; Visit Provider Internal Medicine Cardiovascular Disease
DX: G89.29 Other chronic pain (principal); I25.10 Atherosclerotic heart disease of native coronary artery without angina pectoris; R07.9 Chest pain, unspecified; R40.0 Somnolence; R07.89 Other chest pain
CPT/HCPCS: 93306

== ENCOUNTER 2020-05-28 23:39 | Emergency (ER) | payer MEDICARE, MEDICAID, SELFPAY ==
[2020-05-28 23:52] VITALS: BP 120/78; PULSE 66; RESP 14; TEMP 36.4; O2SAT 96; BMI 36.2
--- NOTE | 2020-05-29 00:04 | CT_ITS ---
PROCEDURE: CT ABDOMEN PELVIS W CON CLINICAL INDICATION: RUQ pain Right upper quadrant pain COMPARISON: CT CT ABDOMEN PELVIS W CON from 03/25/2020 TECHNIQUE: IV Contrast: 75ML OPTIRAY 350 Oral Contrast None Axial images obtained with sagittal and coronal reformats. All CT scans at the facility use one or more dose reduction, viz: automated exposure control, ma/kV adjustment per patient size (including targeted exams where dose is matched to indication, i.e. head), or iterative reconstruction technique. FINDINGS: LOWER THORAX: There are atelectatic or fibrotic changes in the left lung base. Stable 3 mm noncalcified nodule right lower lobe laterally. ABDOMEN & PELVIS: The liver, spleen adrenal glands, pancreas and gallbladder an unremarkable appearance. The stomach is full a particular matter. No renal or ureteral calculi. There is given history of prior appendectomy. No intestinal obstruction or free air. There is mild amount retained colonic feces. No pelvic mass abnormal fluid collection or focal inflammatory change of the pelvis. There are few scattered small mesenteric lymph nodes nonspecific There is chronic wedging of L2.. There is a small umbilical hernia containing fat. IMPRESSION: 1. No acute finding. 2. Moderate amount of retained colonic feces. 3. Other nonacute findings as described above. Dictated by: Romario Vidal MD 05/29/2020 07:55 Romario Vidal MD in [place] 05/29/2020 07:55
[2020-05-29 00:11] LABS: Microscopic, Urine URINE MICROSCOPIC (MICROSCOPIC)
[2020-05-29 00:14] LABS: Appearance,Urine CLEAR (Clear); Bilirubin,Urine Negative (Negative); Blood, Urine Negative (Negative); Color,Urine YELLOW (Yellow); Glucose,Urine (UA) Negative (Negative); Ketones,Urine Negative (Negative); Leukocyte Esterase,Urine Negative (Negative); Nitrate,Urine Negative (Negative); Protein,Urine Negative (Negative); Specific Gravity, Urine <= 1.005 (1.005-1.030); Urobilinogen,Urine 0.2 EU/dl (0.2)
[2020-05-29 00:15] LABS: Basophils # 0.1 K/mm3 (0-0.2); Basophils % 0.6 % (0.1-2.0); Eosinophils # 0.5 K/mm3 (0.0-0.4); Eosinophils % 5.6 % (0.1-12.0); Hematocrit 37.8 % (42.0-52.0); Hemoglobin 13.1 g/dL (14.1-18.0); Lymphocytes # 2.9 K/mm3 (0.7-4.5); Lymphocytes % 34.1 % (10-50); Mean Corpuscular HGB Conc 34.7 g/dL (31.8-35.4); Mean Corpuscular Hemoglobin 30.5 pg (27.0-31.2); Mean Corpuscular Volume 87.9 fl (80-94); Mean Platelet Volume 7.8 fl (7.4-10.4); Monocytes # 0.5 K/mm3 (0.1-1.0); Monocytes % 6.2 % (1.7-9.3); Neutrophils # 4.6 K/mm3 (1.8-7.8); Neutrophils % 53.5 % (37.0-80.0); Platelet Count 223 K/mm3 (142-424); Red Cell Distribution Width 14.5 % (11.5-17.5); White Blood Count 8.6 K/mm3 (4.8-10.8)
--- NOTE | 2020-05-29 00:17 | HMH.EDNVD ---
ED Disposition Clinical Impression: Abdominal pain Qualifiers: Abdominal location: right upper quadrant Qualified Code(s): R10.11 - Right upper quadrant pain Disposition: Home, Self-Care Condition on Discharge: Good Instructions: DI for Acute Abdomen Additional Instructions: use meds and see pcp for follow up Referrals: Dio Albarado APRN [Primary Care Provider] - - Critical Care Critical Care Time: No Attestation: On 05/28/20, the high probability of a clinically significant, sudden or life threatening deterioration of the following system(s) required my full and direct attention, intervention and personal management. The time I documented below is in addition to time spent performing reported procedures but includes the following listed in this critical care notation. Medical Decision Making - Medical Records Medical records reviewed: Yes: I reviewed the patient's medical records. - Jonathan Inquiry Pt receiving controlled substance: No Vital Signs: 05/28/20 23:52 Temperature 97.5 F L Temperature Source Oral Pulse Rate [Right] 66 Respiratory Rate 14 Blood Pressure [Right Arm] 120/78 Blood Pressure Mean [Right Arm] 92 Blood Pressure Source [Right Arm] Automatic Cuff Blood Pressure Position [Right Arm] Supine 02 Sat by Pulse Oximetry 96 Oxygen Delivery Method Room Air - Lab Data Lab results reviewed: Yes: I reviewed the patient's lab results. Lab Results 05/29/20 00:00: WBC 8.6, RBC 4.30 L, Hgb 13.1 L, Hct 37.8 L, MCV 87.9, MCH 30.5, MCHC 34.7, RDW 14.5, Plt Count 223, MPV 7.8, Neut % (Auto) 53.5, Lymph % (Auto) 34.1, [place] % (Auto) 6.2, Eos % (Auto) 5.6, Baso % (Auto) 0.6, Neut # (Auto) 4.6, Lymph # (Auto) 2.9, [place] # (Auto) 0.5, Eos # (Auto) 0.5 H, Baso # (Auto) 0.1, ESR 17 H 05/29/20 00:00: Sodium 137, Potassium 3.8, Chloride 103, Carbon Dioxide 20 L, Anion Gap 17.8 H, BUN 18, Creatinine 1.40 H, Estimated Creat Clear 111, Estimated GFR 55 L, Est GFR ( Amer) 66, Glucose 114 H, Calcium 9.3, Total Bilirubin 0.3, AST 32, ALT 29, Alkaline Phosphatase 68, C-Reactive Protein 4.3 H, Total Protein 7.4, Albumin 4.4, Globulin 3.0, Albumin/Globulin Ratio 1.5, Amylase 60, Lipase 76 05/29/20 00:08: Urine Color Yellow, Urine Appearance Clear, Urine pH 6.0, Ur Specific [place] <= 1.005, Urine Protein Negative, Urine Glucose (UA) Negative, Urine Ketones Negative, Urine Blood Negative, Urine Nitrate Negative, Urine Bilirubin Negative, Urine Urobilinogen 0.2, Ur Leukocyte Esterase Negative, Urine WBC Occasional, Ur Squamous Epith Cells Occasional, Urine Bacteria Trace Result diagrams: 05/29/20 00:00 05/29/20 00:00 Orders (Tests/Meds): ED MEDICATIONS Generic Name Dose Route Start Last Admin Trade Name Freq PRN Reason Stop Dose Admin Sodium Chloride 1,000 mls @ 999 mls/hr 05/29/20 00:15 05/29/20 00:13 Sod Chlor 0.9% 1000ml Bag IV 05/29/20 01:15 999 mls/hr .Q1H1M JABARI Administration Sodium Chloride 8 ml 05/29/20 00:04 Sodium Chloride 0.9% 10ml Vial IV 06/28/20 00:03 NEEDED PRN dilute pepcid Discontinued Medications Generic Name Dose Route Start Last Admin Trade Name Freamrik PRN Reason Stop Dose Admin Famotidine 20 mg 05/29/20 00:04 05/29/20 00:13 Pepcid 20mg/2ml Vial IV 05/29/20 00:05 20 mg ONCE ONE Administration Ioversol 75 ml 05/29/20 00:55 05/29/20 00:56 Rad-Optiray 350 100ml Vial IV 05/29/20 00:56 75 ml ONCE ONE Administration Protocol Ketorolac Tromethamine 30 mg 05/29/20 00:04 05/29/20 00:13 Toradol 30mg/Ml Vial IV 05/29/20 00:05 30 mg ONCE ONE Administration Metoclopramide HCl 10 mg 05/29/20 00:04 05/29/20 00:13 Reglan 10mg/2ml Vial IVP 05/29/20 00:05 10 mg ONCE ONE Administration Ondansetron HCl 4 mg 05/29/20 00:04 05/29/20 00:13 Zofran 4mg/2ml Vial IV 05/29/20 00:05 4 mg ONCE ONE Administration Sodium Chloride 10 ml 05/29/20 00:55 05/29/20 00:56 Rad-Saline Flush 10ml Syringe IV 05/29/20 00:56
[2020-05-29 00:18] LABS: Alanine Aminotransferase 29 U/L (12-78); Albumin Level 4.4 g/dl (3.5-5.0); Albumin/Globulin Ratio 1.5 (1.1-1.8); Alkaline Phosphatase 68 U/L (38-126); Amylase 60 U/L (30-110); Anion Gap 17.8 mEq/L (5-15); Aspartate Amino Transferase 32 U/L (17-59); Bilirubin,Total 0.3 mg/dl (0.2-1.3); Blood Urea Nitrogen 18 mg/dl (9-20); Calcium 9.3 mg/dl (8.4-10.2); Carbon Dioxide 20 mmol/L (22.0-30.0); Chloride 103 mmol/L (98-107); Creatinine Clearance Estimated 111 mL/min (50-200); Estimated Glomerular Filt Rate 55 ml/min (>60); GFR (African American) 66 ML/MIN (>60); Glucose 114 mg/dl (74-100); Lipase 76 U/L (23-300); Potassium 3.8 mmoL/L (3.5-5.1); Sodium 137 mmol/L (136-145); Total Protein,Serum 7.4 g/dl (6.3-8.2)
[2020-05-29 00:23] LABS: Bacteria,Urine Trace /lpf; Squamous Epithelial Cell,Urine Occasional #/hpf (0-5); WBC,Urine Occasional #/hpf (0-3)
[2020-05-29 00:23] LABS: C-Reactive Protein 4.3 mg/L (0-4)
[2020-05-29 00:54] LABS: Erythrocyte Sedimentation Rate 17 mm/hr (0-15)
[2020-05-29 01:30] VITALS: BP 122/76; PULSE 68; RESP 14; TEMP 36.4; O2SAT 99
== END 2020-05-29 01:37 | disposition home or self-care (01) ==
PROVIDERS: Emergency Provider Emergency Medicine; PCP Nurse Practitioner Family
DX: R10.11 Right upper quadrant pain (principal); F41.8 Other specified anxiety disorders; K21.9 Gastro-esophageal reflux disease without esophagitis; E78.5 Hyperlipidemia, unspecified; I10 Essential (primary) hypertension; G43.709 Chronic migraine without aura, not intractable, without status migrainosus; Z90.49 Acquired absence of other specified parts of digestive tract; Z79.899 Other long term (current) drug therapy
CPT/HCPCS: 74177; 80053; 81001; 82150; 83690; 85025; 85651; 86140; 96365; 99283; J2405; Q9967

== ENCOUNTER → 2020-06-07 09:54 | Outpatient (CLI) | payer MEDICARE, MEDICAID, SELFPAY ==
--- NOTE | 2020-06-07 09:55 | US_ITS ---
PROCEDURE: US GALLBLADDER CLINICAL INDICATION: RUQ Pain COMPARISON: No exams were available for comparison FINDINGS: Pancreas: Unremarkable/Not well seen Liver: Unremarkable. There is appropriate direction of blood flow within a non dilated portal vein. Right kidney: Unremarkable appearing. No hydronephrosis. Gallbladder: No stones are evident. There is no gallbladder wall thickening. Common duct is normal in diameter. Phrygian cap is present as a normal variant IMPRESSION: Negative gallbladder ultrasound. No stones evident. Dictated by: Romario Vidal MD 06/07/2020 11:50 Romario Vidal MD in [place] 06/07/2020 11:50
== END ==
PROVIDERS: PCP Emergency Medicine; Visit Provider Nurse Practitioner Family
DX: R10.11 Right upper quadrant pain (principal)
CPT/HCPCS: 76705

== ENCOUNTER → 2020-06-08 08:44 | Outpatient (CLI) | payer MEDICARE, MEDICAID, SELFPAY ==
[2020-06-08 08:53] LABS: MANUAL DIFFERENTIAL MANUAL DIFFERENTIAL (MANUAL DIFF)
[2020-06-08 09:13] LABS: Basophils # 0.1 K/mm3 (0-0.2); Basophils % 0.8 % (0.1-2.0); Eosinophils # 0.5 K/mm3 (0.0-0.4); Eosinophils % 6.8 % (0.1-12.0); Hematocrit 35.9 % (42.0-52.0); Hemoglobin 12.4 g/dL (14.1-18.0); Lymphocytes # 1.7 K/mm3 (0.7-4.5); Lymphocytes % 24.3 % (10-50); Mean Corpuscular HGB Conc 34.6 g/dL (31.8-35.4); Mean Corpuscular Hemoglobin 30.9 pg (27.0-31.2); Mean Corpuscular Volume 89.3 fl (80-94); Mean Platelet Volume 8.4 fl (7.4-10.4); Monocytes # 0.4 K/mm3 (0.1-1.0); Monocytes % 5.7 % (1.7-9.3); Neutrophils # 4.3 K/mm3 (1.8-7.8); Neutrophils % 62.4 % (37.0-80.0); Platelet Count 231 K/mm3 (142-424); Red Blood Count 4.02 M/mm3 (4.60-6.20); Red Cell Distribution Width 14.4 % (11.5-17.5); White Blood Count 6.9 K/mm3 (4.8-10.8)
[2020-06-08 09:43] LABS: Eosinophils % 6 % (0-3); Lymphocytes % 27 % (10-50); Monocytes % 3 % (2-9); Neutrophils % 64 % (42-76); Platelet Estimate Normal; RBC Morphology Normal; Total Cells Counted 100
[2020-06-08 10:14] LABS: Alanine Aminotransferase 22 U/L (12-78); Albumin Level 3.8 g/dl (3.5-5.0); Albumin/Globulin Ratio 1.5 (1.1-1.8); Alkaline Phosphatase 58 U/L (38-126); Anion Gap 15.1 mEq/L (5-15); Aspartate Amino Transferase 22 U/L (17-59); Bilirubin,Total 0.3 mg/dl (0.2-1.3); Blood Urea Nitrogen 15 mg/dl (9-20); Calcium 9.1 mg/dl (8.4-10.2); Carbon Dioxide 22 mmol/L (22.0-30.0); Chloride 107 mmol/L (98-107); Chol/HDL Ratio 3.4 (1-3.5); Cholesterol 121 mg/dl (140-200); Estimated Glomerular Filt Rate 60 ml/min (>60); GFR (African American) 72 ML/MIN (>60); Globulin 2.6 g/dL (1.3-3.2); Glucose 97 mg/dl (74-100); HDL Cholesterol 36 mg/dl (40-60); Potassium 4.1 mmoL/L (3.5-5.1); Sodium 140 mmol/L (136-145); Total Protein,Serum 6.4 g/dl (6.3-8.2); Triglycerides 90 mg/dl (30-150); VLDL Cholesterol 18 mg/dL (0-40)
[2020-06-08 10:23] LABS: NT Pro Brain Natriuretic Pep. 170 pg/mL (0-125)
== END ==
PROVIDERS: PCP Internal Medicine Cardiovascular Disease; Visit Provider Nurse Practitioner Family
DX: E66.9 Obesity, unspecified (principal); G47.33 Obstructive sleep apnea (adult) (pediatric); I25.119 Atherosclerotic heart disease of native coronary artery with unspecified angina pectoris; K21.9 Gastro-esophageal reflux disease without esophagitis; L97.929 Non-pressure chronic ulcer of unspecified part of left lower leg with unspecified severity; R06.00 Dyspnea, unspecified; R60.0 Localized edema; R10.9 Unspecified abdominal pain
CPT/HCPCS: 36415; 80053; 80061; 83880; 85007; 85014; 85018; 85048; 85049

== ENCOUNTER → 2020-07-26 10:38 | Outpatient (CLI) | payer MEDICARE, MEDICAID, SELFPAY ==
--- NOTE | 2020-07-26 10:38 | NM_ITS ---
PROCEDURE: NM HEPATOBILIARY W PHARM CLINICAL INDICATION: abd pain Right upper quadrant pain COMPARISON: US US GALLBLADDER from 06/07/2020 TECHNIQUE: 7.82 mCi technetium Choletec and 2.7 mcg of CCK DOSE: FINDINGS: Homogeneous activity is present within the hepatic parenchyma. Activity is present in the gallbladder by 5 minutes. Activity is present in the small bowel by 35 minutes. The gallbladder ejection fraction is calculated to be 90 percent. CCK-The patient did not report pain or other symptoms during CCK infusion. IMPRESSION: Unremarkable hepatobiliary scan with normal gallbladder ejection fraction Dictated by: Romario Vidal MD 07/27/2020 09:14 Romario Vidal MD in [place] 07/27/2020 09:14
--- NOTE | 2020-07-26 11:23 | HMH.ITSHM ---
Current Home Medications as stated by this patient Maurilio Acuna or provider service representative. []TOPIRAMATE SPIRONOLACTONE RISPERIDONE RANOLAZINE OMEPRAZOLE MONTELUKAST GABAPENTIN METOPROLOL FUROSEMIDE NASAL SPRAY FLUOXETINE ATORVASTATIN ASA ZOFRAN ALBUTEROL
== END ==
PROVIDERS: PCP Internal Medicine Cardiovascular Disease; Visit Provider Nurse Practitioner Family
DX: R10.9 Unspecified abdominal pain (principal)
CPT/HCPCS: 78227; A9537; J2805

== ENCOUNTER → 2020-07-29 10:51 | Outpatient (CLI) | payer MEDICARE, MEDICAID, SELFPAY ==
[2020-07-29 13:50] LABS: Chloride 103 mmol/L (98-107); Potassium 4.3 mmoL/L (3.5-5.1); Sodium 137 mmol/L (136-145)
[2020-07-29 13:53] LABS: Anion Gap 14.3 mEq/L (5-15); Blood Urea Nitrogen 22 mg/dl (9-20); Carbon Dioxide 24 mmol/L (22.0-30.0); Estimated Glomerular Filt Rate 51 ml/min (>60); GFR (African American) 61 ML/MIN (>60)
[2020-07-29 13:54] LABS: Calcium 9.1 mg/dl (8.4-10.2); Glucose 102 mg/dl (74-100)
[2020-07-29 13:59] LABS: NT Pro Brain Natriuretic Pep. 58.9 pg/mL (0-125)
== END ==
PROVIDERS: Visit Provider Nurse Practitioner Family
DX: E66.9 Obesity, unspecified (principal); G47.33 Obstructive sleep apnea (adult) (pediatric); I25.119 Atherosclerotic heart disease of native coronary artery with unspecified angina pectoris; K21.9 Gastro-esophageal reflux disease without esophagitis; R06.00 Dyspnea, unspecified; R07.2 Precordial pain; R60.9 Edema, unspecified
CPT/HCPCS: 36415; 80048; 83880

== ENCOUNTER 2020-08-14 15:34 | Emergency (ER) | payer MEDICARE, MEDICAID, SELFPAY ==
[2020-08-14] VITALS (9 sets, daily range): BP systolic 100–113; BP diastolic 51–75; PULSE 57–75; RESP 16–20; TEMP 36.6–36.8; O2SAT 20–98; BMI 38.2
--- NOTE | 2020-08-14 15:34 | ECG_ITS ---
APPROVED REPORT Exam: Resting ECG HR:66 bpm ECG Measurements Heart Rate 66 AXES MD 188 P 51 QRSd 90 QRS 27 QT 454 T 71 QTc 475 Conclusion Normal sinus rhythm Possible Inferior infarct, old Poor R Wave Progression Abnormal ECG Electronically signed by : Larry Hernandez, 08/15/2020 16:54:33
--- NOTE | 2020-08-14 15:41 | XR_ITS ---
PROCEDURE: XR CHEST 2V CLINICAL HISTORY: chest pain COMPARISON: CR XR CHEST 2V from 03/25/2020 CR XR CHEST 2V from 05/06/2020 CR XR CHEST 2V from 05/07/[address] ANGIO CHEST from 05/07/2020 FINDINGS: The cardiomediastinal silhouette and pulmonary vascularity are within normal limits. There is some chronic opacification in the left lower lobe not significantly changed. The remaining lungs are clear. No acute bony abnormalities. IMPRESSION: Left lower lobe atelectasis or infiltrate not significantly changed Dictated by: Romario Vidal MD 08/14/2020 17:47 Romario Vidal MD in [place] 08/14/2020 17:47
--- NOTE | 2020-08-14 15:42 | PC.NURSE ---
khushbu notified of xray order, spoke with santosh
[2020-08-14 16:02] LABS: Basophils # 0.1 K/mm3 (0-0.2); Basophils % 0.6 % (0.1-2.0); Eosinophils # 0.5 K/mm3 (0.0-0.4); Eosinophils % 4.9 % (0.1-12.0); Hematocrit 40.3 % (42.0-52.0); Hemoglobin 13.7 g/dL (14.1-18.0); Lymphocytes # 3.2 K/mm3 (0.7-4.5); Lymphocytes % 30.2 % (10-50); Mean Corpuscular Hemoglobin 31.5 pg (27.0-31.2); Mean Corpuscular Volume 92.5 fl (80-94); Monocytes # 0.6 K/mm3 (0.1-1.0); Monocytes % 5.4 % (1.7-9.3); Neutrophils # 6.1 K/mm3 (1.8-7.8); Neutrophils % 58.9 % (37.0-80.0); Platelet Count 275 K/mm3 (142-424); Red Blood Count 4.36 M/mm3 (4.60-6.20); Red Cell Distribution Width 13.5 % (11.5-17.5); White Blood Count 10.4 K/mm3 (4.8-10.8)
[2020-08-14 16:12] LABS: Anion Gap 16.2 mEq/L (5-15); Blood Urea Nitrogen 18 mg/dl (9-20); Calcium 9.2 mg/dl (8.4-10.2); Carbon Dioxide 22 mmol/L (22.0-30.0); Chloride 105 mmol/L (98-107); Creatinine Clearance Estimated 145 mL/min (50-200); Estimated Glomerular Filt Rate 65 ml/min (>60); GFR (African American) 79 ML/MIN (>60); Glucose 126 mg/dl (74-100); Potassium 4.2 mmoL/L (3.5-5.1); Sodium 139 mmol/L (136-145)
[2020-08-14 16:13] LABS: Alanine Aminotransferase 21 U/L (12-78); Albumin Level 4.3 g/dl (3.5-5.0); Alkaline Phosphatase 73 U/L (38-126); Aspartate Amino Transferase 29 U/L (17-59); Bilirubin,Direct 0.1 mg/dl (0.0-0.4); Bilirubin,Indirect 0.3 mg/dL (0.0-0.9); Bilirubin,Total 0.4 mg/dl (0.2-1.3); Bilirubin,Unconjugated 0.3 mg/dL (0.0-1.1); Total Protein,Serum 7.1 g/dl (6.3-8.2)
[2020-08-14 16:25] LABS: Troponin I < 0.01 ng/ml (0.00-0.034)
--- NOTE | 2020-08-14 18:14 | PC.NURSE ---
Pt reports tordal is not helping pain, notified ER MD, ER MD gave verbal orders for pt.
--- NOTE | 2020-08-14 19:04 | PC.NURSE ---
shift change report given to nanrn
--- NOTE | 2020-08-14 19:45 | HMH.EDGENADL ---
ED Disposition Clinical Impression: Non-cardiac chest pain Disposition: Home, Self-Care Condition on Discharge: Good Instructions: DI for Atypical Chest Pain Additional Instructions: You were seen on an emergency basis. It is very important that you follow up with your primary care provider and/or specialist as we discussed within 2 days. All labs and imaging were obtained and interpreted here to rule out life threatening emergencies, but your final results should be reviewed by your primary doctor at your follow up appointment. Please return to the emergency department if any of your symptoms worsen, or if they do not improve as we discussed. Referrals: Dio Albarado APRN [Primary Care Provider] - - Critical Care Critical Care Time: No Attestation: On 08/14/20, the high probability of a clinically significant, sudden or life threatening deterioration of the following system(s) required my full and direct attention, intervention and personal management. The time I documented below is in addition to time spent performing reported procedures but includes the following listed in this critical care notation. Medical Decision Making - Medical Records Medical records reviewed: Yes: I reviewed the patient's medical records. - Jonathan Inquiry Pt receiving controlled substance: No Vital Signs: 08/14/20 15:38 08/14/20 16:10 08/14/20 16:30 Temperature 97.8 F Temperature Source Oral Pulse Rate [Right Radial] 70 71 75 Respiratory Rate 16 20 16 Blood Pressure [Right Arm] 113/75 111/70 102/75 L Blood Pressure Mean [Right Arm] 87 83 84 Blood Pressure Source [Right Arm] Automatic Cuff Automatic Cuff Automatic Cuff Blood Pressure Position [Right Arm] Sitting Sitting Sitting 02 Sat by Pulse Oximetry 93 L 91 L 94 L Oxygen Delivery Method Room Air Room Air 08/14/20 17:00 08/14/20 17:30 08/14/20 17:52 Temperature Temperature Source Pulse Rate [Right Radial] 67 65 57 L Respiratory Rate 20 18 18 Blood Pressure [Right Arm] 106/65 L 102/69 L 100/59 L Blood Pressure Mean [Right Arm] 78 80 72 Blood Pressure Source [Right Arm] Automatic Cuff Automatic Cuff Automatic Cuff Blood Pressure Position [Right Arm] Sitting Sitting Sitting 02 Sat by Pulse Oximetry 20 L 91 L 94 L Oxygen Delivery Method Room Air Room Air - Lab Data Lab results reviewed: Yes: I reviewed the patient's lab results. Lab Results 08/14/20 13:48: WBC 10.4, RBC 4.36 L, Hgb 13.7 L, Hct 40.3 L, MCV 92.5, MCH 31.5 H, MCHC 34.0, RDW 13.5, Plt Count 275, MPV 8.0, Neut % (Auto) 58.9, Lymph % (Auto) 30.2, [place] % (Auto) 5.4, Eos % (Auto) 4.9, Baso % (Auto) 0.6, Neut # (Auto) 6.1, Lymph # (Auto) 3.2, [place] # (Auto) 0.6, Eos # (Auto) 0.5 H, Baso # (Auto) 0.1 08/14/20 13:48: Sodium 139, Potassium 4.2, Chloride 105, Carbon Dioxide 22, Anion Gap 16.2 H, BUN 18, Creatinine 1.20, Estimated Creat Clear 145, Estimated GFR 65, Est GFR ( Amer) 79, Glucose 126 H, Calcium 9.2, Troponin I < 0.01 08/14/20 13:48: Total Bilirubin 0.4, Direct Bilirubin 0.1, Conjugated Bilirubin 0.0, Indirect Bilirubin 0.3, Unconjugated Bilirubin 0.3, AST 29, ALT 21, Alkaline Phosphatase 73, Total Protein 7.1, Albumin 4.3 Result diagrams: 08/14/20 13:48 08/14/20 13:48 Orders (Tests/Meds): ED MEDICATIONS Discontinued Medications Generic Name Dose Route Start Last Admin Trade Name Yuly PRN Reason Stop Dose Admin Acetaminophen 1,000 mg 08/14/20 15:53 08/14/20 16:19 Acetaminophen 500mg Tab PO 08/14/20 15:54 1,000 mg ONCE ONE Administration Aspirin 243 mg 08/14/20 15:41 08/14/20 16:19 Aspirin 81mg Chewable Tablet PO 08/14/20 15:42 243 mg ONCE ONE Administration Ketorolac Tromethamine 30 mg 08/14/20 17:28 08/14/20 17:29 Ketorolac 30mg/Ml Vial IV 08/14/20 17:29 30 mg ONCE ONE Administration Morphine Sulfate 4 mg 08/14/20 18:14 08/14/20 18:17 Morphine 4mg/Ml Syringe IV 08/14/20 18:15 4 mg ONCE ONE Administration ORDERS Ca
--- NOTE | 2020-08-14 19:48 | PC.NURSE ---
CALL PLACED TO NIC, ADAM FOR SECOND TROP RESULT. ADVISED WE ARE WAITING ON IT FOR DC AND HE STATED HE JUST HADN'T RELEASED YET
[2020-08-14 19:51] LABS: Troponin I < 0.01 ng/ml (0.00-0.034)
== END 2020-08-14 20:01 | disposition home or self-care (01) ==
PROVIDERS: Emergency Provider Physician Assistant; PCP Nurse Practitioner Family
DX: R07.89 Other chest pain (principal); F41.8 Other specified anxiety disorders; K21.9 Gastro-esophageal reflux disease without esophagitis; E78.5 Hyperlipidemia, unspecified; I10 Essential (primary) hypertension; J45.909 Unspecified asthma, uncomplicated; Z86.69 Personal history of other diseases of the nervous system and sense organs; Z90.49 Acquired absence of other specified parts of digestive tract; F17.210 Nicotine dependence, cigarettes, uncomplicated; Z79.899 Other long term (current) drug therapy
CPT/HCPCS: 36415; 71046; 80048; 80076; 84484; 85025; 93005; 96374; 96375; 99283

== ENCOUNTER 2020-09-03 19:35 | Emergency (ER) | payer MEDICARE, MEDICAID, SELFPAY ==
--- NOTE | 2020-09-03 19:28 | ECG_ITS ---
APPROVED REPORT Exam: Resting ECG HR:72 bpm ECG Measurements Heart Rate 72 AXES AR 200 P 53 QRSd 92 QRS 12 QT 406 T 56 QTc 444 Conclusion Normal sinus rhythm Isolated q in iii late r wave progression Abnormal ECG Electronically signed by : Carlos Noland, 09/06/2020 07:29:18
[2020-09-03 19:36] VITALS: BP 112/72; PULSE 70; RESP 18; TEMP 36.5; O2SAT 100; BMI 41.8
--- NOTE | 2020-09-03 19:38 | XR_ITS ---
PROCEDURE: XR CHEST 2V Referring Doctor: Stevie Lemus Patient Age:45Y CLINICAL HISTORY: chest pain . left-sided chest pain 2-3 hours. Smoker. The COMPARISON: CR XR CHEST 2V from 05/06/[address] ANGIO CHEST from 05/07/2020 CR XR CHEST 2V from 05/07/2020 CR XR CHEST 2V from 08/14/2020 FINDINGS: The lungs are well expanded and clear with nothing definitely acute. There are some mild chronic changes bilaterally. Only minimal linear scarring and atelectasis towards the left base is noted. No focal consolidation or pneumonia evident. The heart is normal in size. Upper normal pulmonary vascularity. Kika and mediastinal structures stable and satisfactory. Chest wall and T-spine stable with no significant findings. No pleural effusions no pneumothorax. IMPRESSION: No significant acute findings. But no acute cardiopulmonary disease Only trace linear scarring and atelectasis towards left lung base Minimal chronic changes. Dictated by: Allan Perez MD 09/04/2020 16:15 Allan Perez MD in [place] 09/04/2020 16:15
--- NOTE | 2020-09-03 19:39 | HMH.EDGENADL ---
ED Disposition Referrals: Jorge Velasco MD [Primary Care Provider] - Attestation: On , the high probability of a clinically significant, sudden or life threatening deterioration of the following system(s) required my full and direct attention, intervention and personal management. The time I documented below is in addition to time spent performing reported procedures but includes the following listed in this critical care notation. Medical Decision Making Orders (Tests/Meds): ORDERS Category Date Time Status CXR --portable [XR chest portable] Stat Exams 09/03/20 19:38 Ordered Complete Blood Count Auto Diff Stat Lab 09/03/20 19:37 Ordered Comprehensive Metabolic Panel Stat Lab 09/03/20 19:37 Ordered Troponin I Q3H Lab 09/03/20 22:45 Ordered Troponin I Q3H Lab 09/04/20 01:45 Ordered Troponin I Stat Lab 09/03/20 19:37 Ordered General Adult HPI - General Stated complaint: Chest pain Time Seen by Provider: 09/03/20 19:39 - Related Data Home Medications Medication Instructions Recorded Confirmed Albuterol Sulfate [Albuterol 2 puffs IH Q4HP PRN 03/26/20 08/23/20 Sulfate Hfa] Previous Rx's Medication Instructions Recorded fluticasone furoate 100 1 inh INHALATION DAILY #28 each 03/09/20 mcg-vilanterol 25 mcg/dose inhalation powder fluticasone propionate 50 1 spray INTRANASAL DAILY #9.9 ml 03/09/20 mcg/actuation nasal spray,suspension montelukast 10 mg tablet 10 mg PO QPM #30 tab 03/09/20 topiramate 100 mg tablet 100 mg PO DAILY #30 tab 03/09/20 Mupirocin [Bactroban 2% Ointment 1 applicatio TP BID #1 tube 03/28/20 22gm tube] diphenhydramine HCl 25 mg capsule 25 mg PO Q6H PRN #30 cap 03/29/20 Ondansetron [Zofran 4mg ODT] 4 mg PO TID PRN 4 Days #15 05/07/20 tab.rapdis gabapentin 800 mg tablet 800 mg PO TID #90 tab 06/01/20 polyethylene glycol 3350 17 17 g PO DAILY #255 g 06/01/20 gram/dose oral powder aspirin 81 mg chewable tablet 81 mg PO DAILY #90 tab 06/29/20 atorvastatin 40 mg tablet 40 mg PO HS #90 tab 06/29/20 metoprolol succinate 25 mg 25 mg PO DAILY #90 tab 06/29/20 tablet,extended release 24 hr ranolazine 500 mg tablet,extended 500 mg PO BID #60 tab 06/29/20 release,12 hr omeprazole 40 mg capsule,delayed 40 mg PO DAILY #30 cap 07/27/20 release eplerenone 25 mg tablet 25 mg PO DAILY #90 tab 08/19/20 furosemide 40 mg tablet 40 mg PO BID #60 tab 08/19/20 fluoxetine 40 mg capsule 40 mg PO DAILY #30 cap 08/23/20 risperidone 1 mg tablet 1 mg PO BID #60 tab 08/23/20 Allergies Allergy/AdvReac Type Severity Reaction Status Date / Time No Known Allergies Allergy Verified 08/23/20 08:53 [facility] History - Hepatitis A Screen Attestation statement:: This patient has been screened for Hepatitis A risk factors. Medical History: Reports:: Anxiety, Asthma, Depression, Gastroesophageal Reflux Disease(GERD), Hyperlipidemia, Hypertension, Migraine Denies:: Cancer, Diabetes Mellitus Type 1, Diabetes Mellitus Type 2, MRSA Other Surgeries: Yes: Appendectomy, Cardiac Catheterization, Other Amputation: No Fractures: No - Social History Smoking Status: Current every day smoker Tobacco Type: cigarettes # Packs/Day (cigarettes): 1 #Yrs smoked (if former smoker): 30 Alcohol Intake: never Alcohol Intake Frequency:: holidays/special occasions only Substance Use Type: denies use Occupational Status: other Housing: house Household Members: spouse, family - Psychiatric History Pschychiatric History:: Reports:: Anxiety, Depression Family Hx:: Coronary Artery Disease, Hyperlipidemia, Hypertension, Diabetes Comment: Mother-heart murmur
[2020-09-03 20:00] LABS: Microscopic, Urine URINE MICROSCOPIC (MICROSCOPIC)
[2020-09-03 20:00] LABS: Basophils # 0.1 K/mm3 (0-0.2); Basophils % 0.7 % (0.1-2.0); Eosinophils # 0.5 K/mm3 (0.0-0.4); Eosinophils % 4.3 % (0.1-12.0); Hematocrit 40.8 % (42.0-52.0); Hemoglobin 13.3 g/dL (14.1-18.0); Lymphocytes # 3.2 K/mm3 (0.7-4.5); Lymphocytes % 29.5 % (10-50); Mean Corpuscular HGB Conc 32.7 g/dL (31.8-35.4); Mean Corpuscular Hemoglobin 30.5 pg (27.0-31.2); Mean Corpuscular Volume 93.2 fl (80-94); Mean Platelet Volume 7.8 fl (7.4-10.4); Monocytes # 0.6 K/mm3 (0.1-1.0); Monocytes % 5.7 % (1.7-9.3); Neutrophils # 6.5 K/mm3 (1.8-7.8); Neutrophils % 59.8 % (37.0-80.0); Platelet Count 268 K/mm3 (142-424); Red Blood Count 4.37 M/mm3 (4.60-6.20); Red Cell Distribution Width 13.7 % (11.5-17.5); White Blood Count 10.8 K/mm3 (4.8-10.8)
[2020-09-03 20:09] LABS: Chloride 107 mmol/L (98-107)
[2020-09-03 20:09] LABS: Appearance,Urine CLEAR (Clear); Bilirubin,Urine Negative (Negative); Blood, Urine Negative (Negative); Color,Urine YELLOW (Yellow); Glucose,Urine (UA) Negative (Negative); Ketones,Urine Negative (Negative); Leukocyte Esterase,Urine Negative (Negative); Nitrate,Urine Negative (Negative); Protein,Urine Negative (Negative); Urobilinogen,Urine 0.2 EU/dl (0.2)
[2020-09-03 20:10] LABS: Potassium 3.5 mmoL/L (3.5-5.1); Sodium 138 mmol/L (136-145)
[2020-09-03 20:12] LABS: Alanine Aminotransferase 24 U/L (12-78); Alkaline Phosphatase 72 U/L (38-126); Aspartate Amino Transferase 35 U/L (17-59); Bilirubin,Total 0.3 mg/dl (0.2-1.3); Blood Urea Nitrogen 13 mg/dl (9-20); Creatinine Clearance Estimated 66 mL/min (50-200); Estimated Glomerular Filt Rate 51 ml/min (>60); GFR (African American) 61 ML/MIN (>60)
[2020-09-03 20:13] LABS: Albumin Level 4.3 g/dl (3.5-5.0); Albumin/Globulin Ratio 1.5 (1.1-1.8); Anion Gap 12.5 mEq/L (5-15); Calcium 9.2 mg/dl (8.4-10.2); Carbon Dioxide 22 mmol/L (22.0-30.0); Globulin 2.8 g/dL (1.3-3.2); Glucose 131 mg/dl (74-100); Total Protein,Serum 7.1 g/dl (6.3-8.2)
[2020-09-03 20:19] LABS: Barbiturates Screen,Urine Negative ng/ml (<200)
[2020-09-03 20:20] LABS: Benzodiazepines Screen,Urine Negative ng/ml (<200)
[2020-09-03 20:21] LABS: Cannabinoid Screen,Urine Negative ng/ml (<50)
[2020-09-03 20:22] LABS: Cocaine Screen,Urine Negative ng/ml (<300); Methadone Screen,Urine Negative ng/ml (<300)
[2020-09-03 20:23] LABS: Opiate Screen,Urine Negative ng/ml (<300)
[2020-09-03 20:24] VITALS: BP 110/75; PULSE 68; RESP 16; O2SAT 96
[2020-09-03 20:24] LABS: Phencyclidine Screen,Urine Negative ng/ml (<25)
[2020-09-03 20:26] LABS: Amphetamine/Metha Screen,Urine Negative ng/ml (<1000)
[2020-09-03 20:26] LABS: Troponin I < 0.01 ng/ml (0.00-0.034)
--- NOTE | 2020-09-03 20:40 | HMH.EDCP ---
ED Disposition Clinical Impression: Angina pectoris Disposition: Home, Self-Care Condition on Discharge: Good Instructions: DI for Angina Additional Instructions: see pcp for follow up and card Prescriptions: Isosorbide Mononitrate [Imdur 30mg ER tablet] 30 mg PO DAILY #30 tab.er.24h Transmission Status: Pending to [id number] Referrals: Jorge Velasco MD [Primary Care Provider] - - Critical Care Critical Care Time: No Attestation: On 09/03/20, the high probability of a clinically significant, sudden or life threatening deterioration of the following system(s) required my full and direct attention, intervention and personal management. The time I documented below is in addition to time spent performing reported procedures but includes the following listed in this critical care notation. Medical Decision Making - Medical Records Medical records reviewed: Yes: I reviewed the patient's medical records. - Jonathan Inquiry Pt receiving controlled substance: No Vital Signs: 09/03/20 19:36 09/03/20 20:24 Temperature 97.7 F Temperature Source Oral Pulse Rate [Right] 70 68 Respiratory Rate 18 16 Blood Pressure [Right Arm] 112/72 110/75 Blood Pressure Mean [Right Arm] 85 86 Blood Pressure Source [Right Arm] Automatic Cuff Blood Pressure Position [Right Arm] Sitting 02 Sat by Pulse Oximetry 100 96 Oxygen Delivery Method Room Air Room Air - Lab Data Lab results reviewed: Yes: I reviewed the patient's lab results. Lab Results 09/03/20 19:50: WBC 10.8, RBC 4.37 L, Hgb 13.3 L, Hct 40.8 L, MCV 93.2, MCH 30.5, MCHC 32.7, RDW 13.7, Plt Count 268, MPV 7.8, Neut % (Auto) 59.8, Lymph % (Auto) 29.5, [place] % (Auto) 5.7, Eos % (Auto) 4.3, Baso % (Auto) 0.7, Neut # (Auto) 6.5, Lymph # (Auto) 3.2, [place] # (Auto) 0.6, Eos # (Auto) 0.5 H, Baso # (Auto) 0.1 09/03/20 19:50: Sodium 138, Potassium 3.5, Chloride 107, Carbon Dioxide 22, Anion Gap 12.5, BUN 13, Creatinine 1.50 H, Estimated Creat Clear 66, Estimated GFR 51 L, Est GFR ( Amer) 61, Glucose 131 H, Calcium 9.2, Total Bilirubin 0.3, AST 35, ALT 24, Alkaline Phosphatase 72, Troponin I < 0.01, Total Protein 7.1, Albumin 4.3, Globulin 2.8, Albumin/Globulin Ratio 1.5 09/03/20 19:58: Urine Opiates Screen Negative, Urine Methadone Screen Negative, Ur Barbituates Screen Negative, Ur Phencyclidine Scrn Negative, Ur Amphetamines Screen Negative, U Benzodiazepines Scrn Negative, Urine Cocaine Screen Negative, U Marijuana (THC) Screen Negative 09/03/20 19:58: Urine Color Yellow, Urine Appearance Clear, Urine pH 6.0, Ur Specific [place] 1.010, Urine Protein Negative, Urine Glucose (UA) Negative, Urine Ketones Negative, Urine Blood Negative, Urine Nitrate Negative, Urine Bilirubin Negative, Urine Urobilinogen 0.2, Ur Leukocyte Esterase Negative, Ur Squamous Epith Cells 3-5 Result diagrams: 09/03/20 19:50 09/03/20 19:50 Orders (Tests/Meds): ED MEDICATIONS Generic Name Dose Route Start Last Admin Trade Name Freq PRN Reason Stop Dose Admin Lactated Ringer's 1,000 mls @ 999 mls/hr 09/03/20 19:45 09/03/20 19:50 Lactated Ringer's 1000 Ml Bag IV 09/03/20 20:45 999 mls/hr .Q1H1M JABARI Administration Discontinued Medications Generic Name Dose Route Start Last Admin Trade Name Freq PRN Reason Stop Dose Admin Aspirin 324 mg 09/03/20 19:45 09/03/20 19:49 Aspirin 81mg Chewable Tablet PO 09/03/20 19:46 324 mg ONCE ONE Administration Nitroglycerin 0.4 mg 09/03/20 19:45 09/03/20 19:49 Nitroglycerin 0.4mg Sl Tablet SL 09/03/20 19:46 1 tab ONCE ONE Administration ORDERS Category Date Time Status XR chest 2V Stat Exams 09/03/20 19:38 Taken Troponin I Q3H Lab 09/03/20 22:45 Ordered Troponin I Q3H Lab 09/04/20 01:45 Ordered - Radiology Data #1 Image(s): Chest Image Reviewed: Yes I reviewed the patient's radiology image Preliminary Findings: Normal/NAD - ECG Data Tracing #1 Normal Sinus Rhythm: Yes Ischemic
[2020-09-03 21:03] VITALS: BP 120/71; PULSE 60; RESP 16; TEMP 36.5; O2SAT 95
== END 2020-09-03 21:21 | disposition home or self-care (01) ==
PROVIDERS: Family Medicine; Emergency Provider Emergency Medicine; PCP Emergency Medicine
DX: I20.8 Other forms of angina pectoris (principal); F41.8 Other specified anxiety disorders; J45.909 Unspecified asthma, uncomplicated; I10 Essential (primary) hypertension; E78.5 Hyperlipidemia, unspecified; K21.9 Gastro-esophageal reflux disease without esophagitis; F17.210 Nicotine dependence, cigarettes, uncomplicated; Z79.899 Other long term (current) drug therapy
CPT/HCPCS: 71046; 80053; 80305; 81001; 84484; 85025; 93005; 96365; 99283

== ENCOUNTER → 2020-09-22 10:10 | Outpatient (CLI) | payer MEDICARE, MEDICAID, SELFPAY ==
[2020-09-22 11:19] LABS: Chloride 103 mmol/L (98-107)
[2020-09-22 11:20] LABS: Potassium 4.3 mmoL/L (3.5-5.1); Sodium 138 mmol/L (136-145)
[2020-09-22 11:22] LABS: Blood Urea Nitrogen 22 mg/dl (9-20); Estimated Glomerular Filt Rate 47 ml/min (>60); GFR (African American) 57 ML/MIN (>60)
[2020-09-22 11:23] LABS: Anion Gap 15.3 mEq/L (5-15); Calcium 9.9 mg/dl (8.4-10.2); Carbon Dioxide 24 mmol/L (22.0-30.0); Glucose 120 mg/dl (74-100)
== END ==
PROVIDERS: Visit Provider Internal Medicine Cardiovascular Disease
DX: E66.9 Obesity, unspecified (principal); G47.33 Obstructive sleep apnea (adult) (pediatric); I25.10 Atherosclerotic heart disease of native coronary artery without angina pectoris; K21.9 Gastro-esophageal reflux disease without esophagitis; R06.00 Dyspnea, unspecified; R60.9 Edema, unspecified
CPT/HCPCS: 36415; 80048

== ENCOUNTER 2020-10-03 20:44 | Emergency (ER) | payer MEDICARE, MEDICAID, SELFPAY ==
[2020-10-03 20:50] VITALS: BP 126/78; PULSE 78; RESP 20; TEMP 36.6; O2SAT 98; BMI 43.0
--- NOTE | 2020-10-03 20:55 | HMH.EDUTC ---
[facility] [place] Impression: Plantar fasci[place] Disposition: Home, Self-Care Condition on Discharge: Good Instructions: DI for Plantar Fasciitis Additional Instructions: Stretch foot before putting weight on it, roll foot on tennis ball and frozen water bottle, get arch supports for shoes, do not walk barefoot Prescriptions: methylPREDNISolone [Medrol 4mg tab] 4 mg PO DIRECTED #21 tab Transmission Status: Pending to [id number] Diclofenac Sodium [Voltaren 100gm Topical Gel] 100 gm TP QID 10 Days #100 gel..gram. Transmission Status: Pending to [facility] Referrals: Dio Albarado APRN [Primary Care Provider] - Wanda Webster DPM [Staff Physician] - Time of Disposition: 20:59 Medical Decision Making - Jonathan Inquiry Pt receiving controlled substance: No Vital Signs: 10/03/20 20:50 Temperature 97.9 F Temperature Source Oral Pulse Rate [Radial] 78 Respiratory Rate 20 Blood Pressure [Right Arm] 126/78 Blood Pressure Mean [Right Arm] 94 Blood Pressure Source [Right Arm] Automatic Cuff Blood Pressure Position [Right Arm] Sitting 02 Sat by Pulse Oximetry 98 Oxygen Delivery Method Room Air [facility] [place] General Stated complaint: Pain in R foot Time Seen by Provider: 10/03/20 20:55 Mode of Arrival: Ambulatory Source of Information: Patient Limitations: No Limitations Description of Symptoms (Recalled from Triage Doc. by RN): right foot pain x 2 weeks. HEENT Symptoms (Recalled from RN notes): No Resp Symptoms (Recalled from RN notes): No Skin Symptoms (Recalled from RN notes): No MS Symptoms (Recalled from RN notes): Yes Functional Status (Recalled from RN notes): wnl - History of Present Illness Provider Complaint: Right foot pain X 2 weeks. Hurts to walk on it. Hurts worse in the morning but hurts all day long. Feels bruised but did not injure it. Onset (ago): week(s) (2) Location: right, lower extremity Relieving factors: none Exacerbating factors: none Associated symptoms: denies other symptoms Treatments prior to arrival: none - Related Data Home Medications Medication Instructions Recorded Confirmed Albuterol Sulfate [Albuterol 2 puffs IH Q4HP PRN 03/26/20 09/07/20 Sulfate Hfa] Previous Rx's Medication Instructions Recorded montelukast 10 mg tablet 10 mg PO QPM #30 tab 03/09/20 topiramate 100 mg tablet 100 mg PO DAILY #30 tab 03/09/20 Mupirocin [Bactroban 2% Ointment 1 applicatio TP BID #1 tube 03/28/20 22gm tube] diphenhydramine HCl 25 mg capsule 25 mg PO Q6H PRN #30 cap 03/29/20 Ondansetron [Zofran 4mg ODT] 4 mg PO TID PRN 4 Days #15 05/07/20 tab.rapdis polyethylene glycol 3350 17 17 g PO DAILY #255 g 06/01/20 gram/dose oral powder aspirin 81 mg chewable tablet 81 mg PO DAILY #90 tab 06/29/20 atorvastatin 40 mg tablet 40 mg PO HS #90 tab 06/29/20 metoprolol succinate 25 mg 25 mg PO DAILY #90 tab 06/29/20 tablet,extended release 24 hr omeprazole 40 mg capsule,delayed 40 mg PO DAILY #30 cap 07/27/20 release furosemide 40 mg tablet 40 mg PO BID #60 tab 08/19/20 risperidone 1 mg tablet 1 mg PO BID #60 tab 08/23/20 Isosorbide Mononitrate [Imdur 30mg 30 mg PO DAILY #30 tab.er.24h 09/03/20 ER tablet] fluticasone furoate 100 1 inh INHALATION DAILY #28 each 09/07/20 mcg-vilanterol 25 mcg/dose inhalation powder fluticasone propionate 50 1 spray INTRANASAL DAILY #9.9 ml 09/07/20 mcg/actuation nasal spray,suspension gabapentin 800 mg tablet 800 mg PO TID #90 tab 09/07/20 ranolazine 1,000 mg 1,000 mg PO BID #60 tab 09/07/20 tablet,extended release,12 hr fluoxetine 40 mg capsule 40 mg PO DAILY #30 cap 09/16/20 eplerenone 50 mg tablet 50 mg PO DAILY #30 tab 09/23/20 Diclofenac Sodium [Voltaren 100gm 100 gm TP QID 10 Days #100 10/03/20 Topical Gel] gel..gram. methylPREDNISolone [Medrol 4mg 4 mg PO DIRECTED #21 tab 10/03/20 tab] Allergies Allergy/AdvReac Type Severity Reaction Status Date / Time No Known Aller
[2020-10-03 21:02] VITALS: BP 126/78; PULSE 78; RESP 20; TEMP 36.6; O2SAT 98
== END 2020-10-03 21:03 | disposition home or self-care (01) ==
PROVIDERS: Emergency Provider Physician Assistant; PCP Nurse Practitioner Family
DX: M72.2 Plantar fascial fibromatosis (principal); F41.8 Other specified anxiety disorders; E78.5 Hyperlipidemia, unspecified; I10 Essential (primary) hypertension; K21.9 Gastro-esophageal reflux disease without esophagitis; G43.709 Chronic migraine without aura, not intractable, without status migrainosus; Z79.899 Other long term (current) drug therapy
CPT/HCPCS: 99201

== ENCOUNTER → 2020-10-04 10:58 | Outpatient (CLI) | payer MEDICARE, MEDICAID, SELFPAY ==
[2020-10-04 11:40] LABS: Chloride 105 mmol/L (98-107); Potassium 4.1 mmoL/L (3.5-5.1); Sodium 140 mmol/L (136-145)
[2020-10-04 11:43] LABS: Anion Gap 12.1 mEq/L (5-15); Blood Urea Nitrogen 13 mg/dl (9-20); Carbon Dioxide 27 mmol/L (22.0-30.0); Estimated Glomerular Filt Rate 55 ml/min (>60); GFR (African American) 66 ML/MIN (>60)
[2020-10-04 11:44] LABS: Calcium 9.6 mg/dl (8.4-10.2); Glucose 120 mg/dl (74-100)
== END ==
PROVIDERS: Visit Provider Internal Medicine Cardiovascular Disease
DX: E66.9 Obesity, unspecified (principal); E78.5 Hyperlipidemia, unspecified; I25.10 Atherosclerotic heart disease of native coronary artery without angina pectoris; I50.9 Heart failure, unspecified; R06.00 Dyspnea, unspecified; R19.00 Intra-abdominal and pelvic swelling, mass and lump, unspecified site; R60.0 Localized edema; I11.0 Hypertensive heart disease with heart failure
CPT/HCPCS: 36415; 80048

== ENCOUNTER 2020-10-20 17:04 | Emergency (ER) | payer MEDICARE, MEDICAID, SELFPAY ==
[2020-10-20 17:16] VITALS: RESP 20; BMI 42.5
[2020-10-20 17:20] VITALS: BP 105/72; PULSE 82; RESP 14; TEMP 36.3; O2SAT 96; BMI 41.9
--- NOTE | 2020-10-20 17:26 | XR_ITS ---
PROCEDURE: XR KNEE RT 3V CLINICAL INDICATION: PAIN Right knee injury with pain COMPARISON: CR XR KNEE RT 4V from 12/08/2019 FINDINGS: No fracture or dislocation. No lytic or blastic change. There is normal mineralization. On the oblique view the soft tissues are blacked out from over penetration. Consider repeating exam at no additional charge to the patient for better evaluation of the soft tissues. Soft tissues have an unremarkable appearance on the AP view and lateral view. Other findings:None. IMPRESSION: As above, no acute finding Dictated by: Romario Vidal MD 10/21/2020 08:39 Romario Vidal MD in [place] 10/21/2020 08:39
--- NOTE | 2020-10-20 18:11 | HMH.EDUTC ---
[facility] [place] Disposition Clinical Impression: Knee pain Qualifiers: Chronicity: unspecified Laterality: right Qualified Code(s): M25.561 - Pain in right knee Disposition: Home, Self-Care Condition on Discharge: Good Instructions: How To Perform RICE (Rest, Ice, Compress, Elevate), DI for Knee Pain, How to Use a Knee Immobilizer Additional Instructions: *weight bearing as tolerated *RICE, Rest the extremity, Ice 15-20 minutes 3-4 times daily, Compress- wear the basil wrap as discussed as much as possible to help reduce swelling and pain, Elevate the extremity when at rest *Basil wrap/knee immobilizer is for support and help control swelling, use it except in the shower. Be sure that is not to tight but not to loose either *Elevate when resting *Ibuprofen 600-800mg every 6-8 hours as needed for pain an inflammation. If need something more can take Tylenol in between doses of Ibuprofen to help Immediately follow up with your family doctor for new or worsening of symptoms, or no noticeable improvement over the next 3-5 days Return if needed Follow up with Orthopedics if no improvement \ Straight to ER if any life threatening symptoms Referrals: Jorge Velasco MD [Primary Care Provider] - As needed Cezar Fletcher MD [Staff Physician] - Time of Disposition: 18:16 Medical Decision Making - Jonathan Inquiry Pt receiving controlled substance: No Jonathan was queried for this patient: No Vital Signs: 10/20/20 17:16 10/20/20 17:20 10/20/20 18:15 Temperature 97.4 F L 97.4 F L Temperature Source Oral Oral Pulse Rate 92 H Pulse Rate [Right] 82 Respiratory Rate 20 14 14 Blood Pressure 105/72 L Blood Pressure [Right Arm] 105/72 L Blood Pressure Mean [Right Arm] 83 02 Sat by Pulse Oximetry 96 Oxygen Delivery Method Room Air Orders (Tests/Meds): ORDERS Category Date Time Status XR knee RT 3V Stat Exams 10/20/20 17:26 Taken - Radiology Data #1 Image(s): Knee Image Reviewed: Yes I reviewed the patient's radiology image w/the ED provider Preliminary Findings: No Fracture Seen [facility] [place] HPI - General Stated complaint: right knee pain Time Seen by Provider: 10/20/20 17:30 Description of Symptoms (Recalled from Triage Doc. by RN): c/o right knee pain that started 2 weeks ago. States he was just walking when he felt a pop and it has been hurting and swelling since. HEENT Symptoms (Recalled from RN notes): No Resp Symptoms (Recalled from RN notes): No Skin Symptoms (Recalled from RN notes): No MS Symptoms (Recalled from RN notes): Yes Functional Status (Recalled from RN notes): wnl - History of Present Illness Provider Complaint: Patient states that he was walking about 2 weeks ago and felt pop in the side of his right knee States that ever since he has been having pain and swelling on and off and hurts when he walks States that he is taking a trip this weekend and wanted to have it checked before he went Denies numbness and tingling - Related Data Home Medications Medication Instructions Recorded Confirmed Albuterol Sulfate [Albuterol 2 puffs IH Q4HP PRN 03/26/20 09/07/20 Sulfate Hfa] Previous Rx's Medication Instructions Recorded topiramate 100 mg tablet 100 mg PO DAILY #30 tab 03/09/20 Mupirocin [Bactroban 2% Ointment 1 applicatio TP BID #1 tube 03/28/20 22gm tube] diphenhydramine HCl 25 mg capsule 25 mg PO Q6H PRN #30 cap 03/29/20 Ondansetron [Zofran 4mg ODT] 4 mg PO TID PRN 4 Days #15 05/07/20 tab.rapdis polyethylene glycol 3350 17 17 g PO DAILY #255 g 06/01/20 gram/dose oral powder aspirin 81 mg chewable tablet 81 mg PO DAILY #90 tab 06/29/20 atorvastatin 40 mg tablet 40 mg PO HS #90 tab 06/29/20 metoprolol succinate 25 mg 25 mg PO DAILY #90 tab 06/29/20 tablet,extended release 24 hr omeprazole 40 mg capsule,delayed 40 mg PO DAILY #30 cap 07/27/20 release furosemide 40 mg tablet 40 mg PO BID #60 tab 08/19/20 Isosorbide Mononitrate [Imdur 30mg 30 mg PO DAILY #30 t
[2020-10-20 18:15] VITALS: BP 105/72; PULSE 92; RESP 14; TEMP 36.3; O2SAT 96
== END 2020-10-20 18:23 | disposition home or self-care (01) ==
PROVIDERS: Emergency Provider Nurse Practitioner; PCP Emergency Medicine
DX: M25.561 Pain in right knee (principal); F41.8 Other specified anxiety disorders; K21.9 Gastro-esophageal reflux disease without esophagitis; I10 Essential (primary) hypertension; E78.5 Hyperlipidemia, unspecified; Z79.899 Other long term (current) drug therapy; F17.210 Nicotine dependence, cigarettes, uncomplicated
CPT/HCPCS: G0463; 73562; 99202

== ENCOUNTER 2020-10-31 14:55 | Emergency (ER) | payer MEDICARE, MEDICAID, SELFPAY ==
[2020-10-31 14:55] VITALS: BP 110/65; PULSE 105; PULSE 106; RESP 20; TEMP 36.8; O2SAT 90; O2SAT 92; BMI 43.2
--- NOTE | 2020-10-31 14:55 | ECG_ITS ---
APPROVED REPORT Exam: Resting ECG HR:108 bpm ECG Measurements Heart Rate 108 AXES MD 174 P 58 QRSd 80 QRS 38 QT 332 T 34 QTc 444 Conclusion Sinus tachycardia Late r wave progression - unchanged from prior Abnormal ECG Electronically signed by : Carlos Noland, 10/31/2020 20:55:28
--- NOTE | 2020-10-31 15:05 | XR_ITS ---
PROCEDURE: XR CHEST PORTABLE CLINICAL HISTORY: dyspnea Shortness of breath COMPARISON: CR XR CHEST 2V from 05/07/[address] ANGIO CHEST from 05/07/2020 CR XR CHEST 2V from 08/14/2020 CR XR CHEST 2V from 09/03/[address] CHEST WO CON from 10/31/2020 FINDINGS: The cardiomediastinal silhouette and pulmonary vascularity are within normal limits. No lobar consolidation or collapse. Mild atelectatic change left lower lobe. No acute bony abnormalities. IMPRESSION: Mild left basilar atelectasis. Dictated by: Romario Vidal MD 11/01/2020 06:37 Romario Vidal MD in [place] 11/01/2020 06:37
[2020-10-31 15:17] LABS: Basophils % 0.3 % (0.1-2.0); Eosinophils # 0.2 K/mm3 (0.0-0.4); Eosinophils % 1.3 % (0.1-12.0); Hematocrit 40.1 % (42.0-52.0); Hemoglobin 13.6 g/dL (14.1-18.0); Lymphocytes # 1.5 K/mm3 (0.7-4.5); Lymphocytes % 9.6 % (10-50); Mean Corpuscular HGB Conc 33.9 g/dL (31.8-35.4); Mean Corpuscular Hemoglobin 30.6 pg (27.0-31.2); Mean Corpuscular Volume 90.3 fl (80-94); Mean Platelet Volume 8.1 fl (7.4-10.4); Monocytes # 0.7 K/mm3 (0.1-1.0); Monocytes % 4.5 % (1.7-9.3); Neutrophils # 13.4 K/mm3 (1.8-7.8); Neutrophils % 84.3 % (37.0-80.0); Platelet Count 267 K/mm3 (142-424); Red Blood Count 4.44 M/mm3 (4.60-6.20); Red Cell Distribution Width 14.1 % (11.5-17.5); White Blood Count 15.9 K/mm3 (4.8-10.8)
[2020-10-31 15:18] LABS: MANUAL DIFFERENTIAL MANUAL DIFFERENTIAL (MANUAL DIFF)
[2020-10-31 15:25] VITALS: BP 108/65; PULSE 102; RESP 26; O2SAT 91
--- NOTE | 2020-10-31 15:25 | HMH.EDCP ---
ED Disposition Clinical Impression: Atypical chest pain Disposition: Home, Self-Care Condition on Discharge: Good Instructions: DI for Atypical Chest Pain Referrals: Jorge Velasco MD [Primary Care Provider] - - Critical Care Critical Care Time: No Attestation: On 10/31/20, the high probability of a clinically significant, sudden or life threatening deterioration of the following system(s) required my full and direct attention, intervention and personal management. The time I documented below is in addition to time spent performing reported procedures but includes the following listed in this critical care notation. Medical Decision Making - Medical Records Medical records reviewed: Yes: I reviewed the patient's medical records. - Jonathan Inquiry Pt receiving controlled substance: No Vital Signs: 10/31/20 14:55 10/31/20 15:25 10/31/20 16:00 Temperature 98.3 F Temperature Source Oral Pulse Rate [Left Radial] 105 H 102 H 94 H Respiratory Rate 20 26 H 22 Blood Pressure [Right Arm] 110/65 108/65 L 113/56 L Blood Pressure Mean [Right Arm] 80 79 75 Blood Pressure Source [Right Arm] Automatic Cuff Automatic Cuff Automatic Cuff Blood Pressure Position [Right Arm] Sitting Sitting Sitting 02 Sat by Pulse Oximetry 90 L 91 L 91 L Oxygen Delivery Method Vapotherm Oxygen Flow Rate (LPM) 40 10/31/20 16:49 10/31/20 17:00 Temperature Temperature Source Pulse Rate [Left Radial] 85 84 Respiratory Rate 15 Blood Pressure [Right Arm] 126/70 101/64 L Blood Pressure Mean [Right Arm] 88 76 Blood Pressure Source [Right Arm] Automatic Cuff Automatic Cuff Blood Pressure Position [Right Arm] Sitting Sitting 02 Sat by Pulse Oximetry 91 L 97 Oxygen Delivery Method Room Air Room Air Oxygen Flow Rate (LPM) - Lab Data Lab results reviewed: Yes: I reviewed the patient's lab results. Lab Results 10/31/20 15:00: WBC 15.9 H, RBC 4.44 L, Hgb 13.6 L, Hct 40.1 L, MCV 90.3, MCH 30.6, MCHC 33.9, RDW 14.1, Plt Count 267, MPV 8.1, Neut % (Auto) 84.3 H, Lymph % (Auto) 9.6 L, [place] % (Auto) 4.5, Eos % (Auto) 1.3, Baso % (Auto) 0.3, Neut # (Auto) 13.4 H, Lymph # (Auto) 1.5, [place] # (Auto) 0.7, Eos # (Auto) 0.2, Baso # (Auto) 0.0, Total Counted 100, Neutrophils % (Manual) 85 H, Lymphocytes % (Manual) 9 L, Monocytes % (Manual) 5, Eosinophils % (Manual) 1, Platelet Estimate Normal, RBC Morphology Normal 10/31/20 15:00: Sodium 137, Potassium 4.1, Chloride 107, Carbon Dioxide 23, Anion Gap 11.1, BUN 11, Creatinine 1.40 H, Estimated Creat Clear 71, Estimated GFR 55 L, Est GFR ( Amer) 66, Glucose 113 H, Calcium 9.8, Total Bilirubin 0.4, AST 26, ALT 17, Alkaline Phosphatase 66, Troponin I < 0.01, Total Protein 7.3, Albumin 4.1, Globulin 3.2, Albumin/Globulin Ratio 1.3 10/31/20 15:00: ESR 24 H 10/31/20 15:00: NT-Pro-B Natriuret Pep 45.7 10/31/20 15:00: SARS-CoV-2 IgG Ab (Rapid) Negative, SARS-CoV-2 IgM Ab (Rapid) Negative 10/31/20 15:05: Specimen Source Left radial, O2 % Ra, ABG pH 7.43, ABG pCO2 30.5 L, ABG pO2 47.1 L, ABG HCO3 19.8 L, ABG Total CO2 20.7 L, ABG O2 Saturation 86 L*, ABG Base Excess -4.5 L, Romario Test Acceptable 10/31/20 17:00: Troponin I < 0.01 Result diagrams: 10/31/20 15:00 10/31/20 15:00 Orders (Tests/Meds): ED MEDICATIONS Discontinued Medications Generic Name Dose Route Start Last Admin Trade Name Freq PRN Reason Stop Dose Admin Ketorolac Tromethamine 30 mg 10/31/20 16:06 10/31/20 16:21 Ketorolac 30mg/Ml Vial IV 10/31/20 16:07 30 mg ONCE ONE Administration Ondansetron HCl 8 mg 10/31/20 15:06 10/31/20 15:59 Ondansetron 4mg/2ml Vial IV 01/24/21 15:07 8 mg ONCE ONE Administration Orphenadrine Citrate 60 mg 10/31/20 16:06 10/31/20 16:21 Orphenadrine Citrate 60mg/2ml Vial IV 10/31/20 16:07 60 mg ONCE ONE Administration ORDERS Category Date Time Status XR chest portable Stat Exams 10/31/20 15:05 Taken Covid-19 Nasal PCR ([facility]) Routine Lab 10/31/20 15:56 Receiv
[2020-10-31 15:27] LABS: Alanine Aminotransferase 17 U/L (12-78); Albumin Level 4.1 g/dl (3.5-5.0); Albumin/Globulin Ratio 1.3 (1.1-1.8); Alkaline Phosphatase 66 U/L (38-126); Anion Gap 11.1 mEq/L (5-15); Aspartate Amino Transferase 26 U/L (17-59); Bilirubin,Total 0.4 mg/dl (0.2-1.3); Blood Urea Nitrogen 11 mg/dl (9-20); Calcium 9.8 mg/dl (8.4-10.2); Carbon Dioxide 23 mmol/L (22.0-30.0); Chloride 107 mmol/L (98-107); Creatinine Clearance Estimated 71 mL/min (50-200); Estimated Glomerular Filt Rate 55 ml/min (>60); GFR (African American) 66 ML/MIN (>60); Globulin 3.2 g/dL (1.3-3.2); Glucose 113 mg/dl (74-100); Potassium 4.1 mmoL/L (3.5-5.1); Sodium 137 mmol/L (136-145); Total Protein,Serum 7.3 g/dl (6.3-8.2)
--- NOTE | 2020-10-31 15:27 | PC.NURSE ---
Resp at bedside at this time.
[2020-10-31 15:29] LABS: Eosinophils % 1 % (0-3); Lymphocytes % 9 % (10-50); Monocytes % 5 % (2-9); Neutrophils % 85 % (42-76); Platelet Estimate Normal; RBC Morphology Normal; Total Cells Counted 100
[2020-10-31 15:36] LABS: NT Pro Brain Natriuretic Pep. 45.7 pg/mL (0-125)
[2020-10-31 15:40] LABS: Coronavirus 19 IgG Antibody Negative (Negative); Coronavirus 19 IgM Antibody Negative (Negative)
[2020-10-31 15:40] LABS: ABG Base Excess -4.5 mmol/L (-2.4-2.3); ABG HCO3 19.8 mmhg (22.0-26.0); ABG Oxygen Saturation 86 % (90-100); ABG PCO2 30.5 mmhg (35.0-45.0); ABG PH 7.43 mmol/L (7.35-7.45); ABG TCO2 20.7 mmhg (23-27)
[2020-10-31 15:41] LABS: Erythrocyte Sedimentation Rate 24 mm/hr (0-15); Troponin I < 0.01 ng/ml (0.00-0.034)
[2020-10-31 15:42] LABS: Allen's Test Acceptable; Oxygen RA %; Source Left Radial
[2020-10-31 15:43] LABS: ABG PO2 47.1 mmhg (80-100)
[2020-10-31 16:00] VITALS: BP 113/56; PULSE 94; RESP 22; O2SAT 91
[2020-10-31 16:49] VITALS: BP 126/70; PULSE 85; O2SAT 91
[2020-10-31 17:00] VITALS: BP 101/64; PULSE 84; RESP 15; O2SAT 97
[2020-10-31 17:31] LABS: Troponin I < 0.01 ng/ml (0.00-0.034)
[2020-10-31 17:56] VITALS: BP 93/57; PULSE 79; RESP 22; TEMP 36.8; O2SAT 93
--- NOTE | 2020-10-31 20:03 | PC.NURSE ---
notified of positive COVID result
== END 2020-10-31 17:56 | disposition home or self-care (01) ==
PROVIDERS: Emergency Provider Emergency Medicine; PCP Emergency Medicine
DX: U07.1 COVID-19 (principal); G43.709 Chronic migraine without aura, not intractable, without status migrainosus; F41.8 Other specified anxiety disorders; K21.9 Gastro-esophageal reflux disease without esophagitis; E78.5 Hyperlipidemia, unspecified; I10 Essential (primary) hypertension; Z79.899 Other long term (current) drug therapy
CPT/HCPCS: 71045; 80053; 82803; 83880; 84484; 85007; 85025; 85651; 86328; 93005; 96374; 96375; 99284; J2405; U0003

== ENCOUNTER 2020-10-31 22:12 | Emergency (ER) | payer MEDICARE, MEDICAID, SELFPAY ==
[2020-10-31 22:04] VITALS: BP 107/67; PULSE 71; RESP 20; TEMP 36.9; O2SAT 95; BMI 42.5
--- NOTE | 2020-10-31 22:08 | ECG_ITS ---
APPROVED REPORT Exam: Resting ECG HR:73 bpm ECG Measurements Heart Rate 73 AXES DC 192 P 50 QRSd 94 QRS 36 QT 412 T 62 QTc 453 Conclusion Normal sinus rhythm Septal infarct, age undetermined Lateral infarct, age undetermined Abnormal ECG Electronically signed by : Carlos Noland, 11/01/2020 14:16:08
--- NOTE | 2020-10-31 22:14 | XR_ITS ---
PROCEDURE: XR CHEST 2V CLINICAL HISTORY: chest pain Left-sided chest pain COMPARISON: CT CT ANGIO CHEST from 05/07/2020 CR XR CHEST 2V from 08/14/2020 CR XR CHEST 2V from 09/03/2020 CR XR CHEST PORTABLE from 10/31/2020 FINDINGS: The cardiomediastinal silhouette and pulmonary vascularity are within normal limits. Atelectasis or infiltrate is present in the left lower lobe posteriorly No acute bony abnormalities. IMPRESSION: Left basilar atelectasis and/or infiltrate Dictated by: Romario Vidal MD 11/01/2020 06:20 Romario Vidal MD in [place] 11/01/2020 06:20
--- NOTE | 2020-10-31 22:24 | CT_ITS ---
PROCEDURE: CT CHEST WO CON CLINICAL INDICATION: Rule out PE Left-sided chest pain COMPARISON: CT CT ANGIO CHEST from 05/07/2020 TECHNIQUE: Axial images obtained with sagittal and coronal reformats. All CT scans at the facility use one or more dose reduction, viz: automated exposure control, ma/kV adjustment per patient size (including targeted exams where dose is matched to indication, i.e. head), or iterative reconstruction technique. FINDINGS: HEART AND MEDIASTINAL STRUCTURES: No mediastinal or hilar mass or adenopathy. No evidence of aortic aneurysm. Scattered small nodes are present in the mediastinum. There is minimal thickening of the pericardium anteriorly. LUNGS AND PLEURAL SPACES: Mild degree of motion artifact. Minimal nodularity within the minor fissure on the right in 2 different areas and may be due to small lymph nodes. Atelectatic changes are present in the left lower lobe. BONY STRUCTURES: Degenerative changes thoracic spine. Mild loss of height anteriorly of T8 not significantly changed. UPPER ABDOMEN: Unremarkable. ADDITIONAL FINDINGS: Gynecomastia IMPRESSION: Left basilar atelectasis with other nonacute findings above Dictated by: Romario Vidal MD 11/01/2020 09:14 Romario Vidal MD in [place] 11/01/2020 09:14
[2020-10-31 22:30] LABS: Basophils # 0.1 K/mm3 (0-0.2); Basophils % 0.4 % (0.1-2.0); Eosinophils # 0.4 K/mm3 (0.0-0.4); Eosinophils % 2.6 % (0.1-12.0); Hematocrit 36.6 % (42.0-52.0); Hemoglobin 12.5 g/dL (14.1-18.0); Lymphocytes # 2.9 K/mm3 (0.7-4.5); Lymphocytes % 20.9 % (10-50); Mean Corpuscular HGB Conc 34.3 g/dL (31.8-35.4); Mean Corpuscular Hemoglobin 31.2 pg (27.0-31.2); Mean Corpuscular Volume 91.2 fl (80-94); Mean Platelet Volume 7.8 fl (7.4-10.4); Monocytes # 0.6 K/mm3 (0.1-1.0); Monocytes % 4.1 % (1.7-9.3); Neutrophils % 72.1 % (37.0-80.0); Platelet Count 261 K/mm3 (142-424); Red Blood Count 4.02 M/mm3 (4.60-6.20); White Blood Count 13.8 K/mm3 (4.8-10.8)
[2020-10-31 22:40] LABS: Alanine Aminotransferase 16 U/L (12-78); Albumin Level 3.8 g/dl (3.5-5.0); Alkaline Phosphatase 66 U/L (38-126); Anion Gap 12.7 mEq/L (5-15); Aspartate Amino Transferase 18 U/L (17-59); Bilirubin,Direct 0.2 mg/dl (0.0-0.4); Bilirubin,Indirect 0.1 mg/dL (0.0-0.9); Bilirubin,Total 0.3 mg/dl (0.2-1.3); Bilirubin,Unconjugated 0.1 mg/dL (0.0-1.1); Blood Urea Nitrogen 13 mg/dl (9-20); Calcium 9.2 mg/dl (8.4-10.2); Carbon Dioxide 22 mmol/L (22.0-30.0); Chloride 105 mmol/L (98-107); Creatinine Clearance Estimated 52 mL/min (50-200); Estimated Glomerular Filt Rate 39 ml/min (>60); GFR (African American) 47 ML/MIN (>60); Glucose 133 mg/dl (74-100); Potassium 3.7 mmoL/L (3.5-5.1); Sodium 136 mmol/L (136-145); Total Protein,Serum 6.7 g/dl (6.3-8.2)
--- NOTE | 2020-10-31 23:05 | HMH.EDCP ---
ED Disposition Clinical Impression: COVID-19 virus infection CAD (coronary artery disease), [place] coronary artery Qualifiers: [place] vs. transplanted heart: [place] heart Associated angina: with unspecified angina Qualified Code(s): I25.119 - Atherosclerotic heart disease of [place] coronary artery with unspecified angina pectoris Obesity Qualifiers: Obesity type: due to excess calories Obesity classification: adult class 3 (BMI >= 40) Serious obesity comorbidity presence: with serious comorbidity Body mass index: BMI 40.0-44.9 Qualified Code(s): E66.01 - Morbid (severe) obesity due to excess calories; Z68.41 - Body mass index [BMI]40.0-44.9, adult Disposition: Home, Self-Care Condition on Discharge: Good Instructions: DI for COVID-19 (Suspected or Confirmed ) Additional Instructions: fluids and resume meds and quarantine as directed Referrals: Dio Albarado APRN [Primary Care Provider] - - Critical Care Critical Care Time: No Attestation: On 10/31/20, the high probability of a clinically significant, sudden or life threatening deterioration of the following system(s) required my full and direct attention, intervention and personal management. The time I documented below is in addition to time spent performing reported procedures but includes the following listed in this critical care notation. Medical Decision Making - Medical Records Medical records reviewed: Yes: I reviewed the patient's medical records. - Jonathan Inquiry Pt receiving controlled substance: No Vital Signs: 10/31/20 22:04 Temperature 98.4 F Temperature Source Oral Pulse Rate [Apical] 71 Respiratory Rate 20 Blood Pressure [Right Arm] 107/67 L Blood Pressure Mean [Right Arm] 80 Blood Pressure Source [Right Arm] Automatic Cuff Blood Pressure Position [Right Arm] Supine 02 Sat by Pulse Oximetry 95 Oxygen Delivery Method Room Air - Lab Data Lab results reviewed: Yes: I reviewed the patient's lab results. Lab Results 10/31/20 22:00: WBC 13.8 H, RBC 4.02 L, Hgb 12.5 L, Hct 36.6 L, MCV 91.2, MCH 31.2, MCHC 34.3, RDW 14.0, Plt Count 261, MPV 7.8, Neut % (Auto) 72.1, Lymph % (Auto) 20.9, [place] % (Auto) 4.1, Eos % (Auto) 2.6, Baso % (Auto) 0.4, Neut # (Auto) 10.0 H, Lymph # (Auto) 2.9, [place] # (Auto) 0.6, Eos # (Auto) 0.4, Baso # (Auto) 0.1 10/31/20 22:00: Sodium 136, Potassium 3.7, Chloride 105, Carbon Dioxide 22, Anion Gap 12.7, BUN 13, Creatinine 1.90 H D, Estimated Creat Clear 52, Estimated GFR 39 L, Est GFR ( Amer) 47 L D, Glucose 133 H, Calcium 9.2, Troponin I < 0.01 10/31/20 22:00: Total Bilirubin 0.3, Direct Bilirubin 0.2, Conjugated Bilirubin 0.0, Indirect Bilirubin 0.1, Unconjugated Bilirubin 0.1, AST 18 D, ALT 16, Alkaline Phosphatase 66, Total Protein 6.7, Albumin 3.8 Result diagrams: 10/31/20 22:00 10/31/20 22:00 Orders (Tests/Meds): ED MEDICATIONS Discontinued Medications Generic Name Dose Route Start Last Admin Trade Name Freq PRN Reason Stop Dose Admin Aspirin 243 mg 10/31/20 22:26 10/31/20 22:26 Aspirin 81mg Chewable Tablet PO 10/31/20 22:27 243 mg ONCE ONE Administration Ketorolac Tromethamine 30 mg 10/31/20 23:27 10/31/20 23:29 Ketorolac 30mg/Ml Vial IV 10/31/20 23:28 30 mg ONCE ONE Administration ORDERS Category Date Time Status CT chest wo con Stat Cat Scan 10/31/20 22:24 Taken XR chest 2V Stat Exams 10/31/20 22:14 Taken Troponin I Q3H Lab 11/01/20 01:15 Ordered Troponin I Q3H Lab 11/01/20 04:15 Ordered - Radiology Data #1 Image(s): Chest Image Reviewed: Yes I reviewed the patient's radiology image Preliminary Findings: Normal/NAD - CT Data CT Scan: Chest Time Received: 00:[address] Reviewed: Yes: I have viewed the radiologist's interpretation Preliminary Findings: Normal/NAD - ECG Data Tracing #1 Normal Sinus Rhythm: Yes Ischemic changes: non-specific ST-T wave changes - Reevaluation(s) Time: 00:02 Reevaluation #1: stable Medical D
[2020-10-31 23:11] LABS: Troponin I < 0.01 ng/ml (0.00-0.034)
[2020-11-01 00:25] VITALS: BP 99/56; PULSE 88; RESP 20; TEMP 36.9; O2SAT 96
== END 2020-11-01 00:28 | disposition home or self-care (01) ==
PROVIDERS: Emergency Provider Emergency Medicine; PCP Nurse Practitioner Family
DX: U07.1 COVID-19 (principal); I25.119 Atherosclerotic heart disease of native coronary artery with unspecified angina pectoris; F41.8 Other specified anxiety disorders; K21.9 Gastro-esophageal reflux disease without esophagitis; E78.5 Hyperlipidemia, unspecified; I10 Essential (primary) hypertension; E66.01 Morbid (severe) obesity due to excess calories; Z68.41 Body mass index [BMI] 40.0-44.9, adult; F17.210 Nicotine dependence, cigarettes, uncomplicated; Z79.899 Other long term (current) drug therapy; R06.02 Shortness of breath
CPT/HCPCS: 71045; 71046; 71250; 80048; 80053; 80076; 82803; 83880; 84484; 85007; 85025; 85651; 86328; 93005; 96374; 96375; 99282; 99284; J2405; U0003

== ENCOUNTER → 2020-11-18 11:18 | Outpatient (CLI) | payer MEDICARE, MEDICAID, SELFPAY ==
--- NOTE | 2020-11-18 | CA_ITS ---
APPROVED REPORT Exam: Pharmacologic Technologist: Leona Camarillo, Ht: 5 ft 11 in Wt: 305 lbs BSA: 2.52 m2 Medical History Medications: Furosemide (LASIX),,,,, Metoprolol,,,,, Gabapentin,,,,, Flonase,,,,, Albuterol,,,,, Famotidine,,,,, Fluoxetin,,,,, Voltaren,,,,, BREo Eliipta,,,,, Ranexa,,,,, AtorvaASTATIN,,,,, Asapirin,,,,, Stress Test Details Test: LEXISCAN HR Resting HR: 72 bpm Max Heart Rate (APMHR): 175 bpm Max HR Achieved: 104 bpm Target HR (85% APMHR): 148 bpm % of APMHR: 59 Recovery HR: 81 bpm BP Resting BP: 100/74 mmHg Max BP: 131/75 mmHg Recovery BP: 128.0/74.0 mmHg ECG Resting ECG: NSR, 1 degree AVB, Poor R wave progression, cannot rule out anterior and inferior IA's Clinical Exercise duration: 04:00 min Highest Stage Achieved: Exercise capacity: 1.0 METs Stress ECG Conclusion Symptoms: Malaise, mild SOA, stomach cramps and MORROW. No CP. Arrythmias/Ectopy: None ST-T Changes: No significant changes. Conclusion: Unremarkable Lexiscan stress. Myoview images reported separately. Test Summary REST . . . . . . . Resting REST 02:34 . . 72 . 100/ 74 . . Stage 1 . . . . . . . Cardiolite injected Stage 1 01:00 . . 83 . . . . Stage 2 01:00 . . 102 . . . . Stage 3 01:00 . . 97 . 104/ 77 . . Stage 4 01:00 . . 93 . 106/ 76 . Stop exercise at 04:00 RECOVERY 01:00 . . 91 . 108/ 75 . . RECOVERY 02:00 . . 91 . 119/ 77 . . RECOVERY 03:00 . . 89 . 119/ 77 . . RECOVERY 04:00 . . 85 . 131/ 75 . . RECOVERY 05:00 . . 81 . 128/ 74 . . RECOVERY 05:20 . . 83 . 128/ 74 . . Electronically signed by : Siddharth Cisneros, 11/19/2020 09:52:45
--- NOTE | 2020-11-18 11:18 | NM_ITS ---
APPROVED REPORT Exam: Nuclear Stress Test Indication: chest pain..short of breath..fatigue Patient Location: Outpatient Stress Tech: Yadi Matos OR Tech:ELISABET Lewis RT(R)(N) Ht: 5 ft 11 in Wt: 300 lbs HR: 71 bpm BP: 100/74 mmHg BSA: 2.51 m2 BMI: 41.8 History: chest pain..short of breath..fatigue Procedure: Patient received a 0.4 mg of intravenous Lexiscan, resting heart rate 71 bpm, resting blood pressure 100/74 mmHg, with Lexiscan maximum heart rate achived was 103 bpm which is Less than 85 % of the maximum predicted heart rate and blood pressure was 104/77 mmHg. With Lexiscan, patient denied any complaint of chest pain. Electrocardiogram Resting electrocardiogram showed sinus rhythm, with Lexiscan there is less than 1.[address] segment depression noted from the baseline EKG. The EKG portion of the Lexiscan is nondiagnostic. Cardiac Stress and Resting SPECT Images: Cardiac Stress and Resting SPECT images were obtained using technetium 99m Myoview 30.9 mCi stress and 10.43 mCi at rest. Gated SPECT for analysis of segmental wall motion and calculation of the ejection fraction also done. Cardiac stress and resting SPECT images show a fixed defect involving the anterior apical and apical wall consistent with area of myocardial scarring without significant diana-infarct ischemia, computer derived ejection fraction is 61% with moderate anterior apical and apical wall hypokinesis, right ventricle is normal size and contractility. Conclusion: 1. The EKG portion of the Lexiscan is nondiagnostic. 2. Scintigraphic evidence of myocardial scarring involving the anterior apical and apical wall without significant diana-infarct ischemia, computer derived ejection fraction 61% with segmental wall motion abnormality described above, right ventricle is normal size and contractility. 3. Abnormal Lexiscan Myoview study. Electronically signed by : Siddharth Cisneros, 11/19/2020 12:11:26
== END ==
PROVIDERS: PCP Nurse Practitioner Family; Visit Provider Internal Medicine Cardiovascular Disease
DX: E66.9 Obesity, unspecified (principal); E78.5 Hyperlipidemia, unspecified; I25.119 Atherosclerotic heart disease of native coronary artery with unspecified angina pectoris; I50.33 Acute on chronic diastolic (congestive) heart failure; R06.00 Dyspnea, unspecified; R19.00 Intra-abdominal and pelvic swelling, mass and lump, unspecified site; R60.0 Localized edema; F17.210 Nicotine dependence, cigarettes, uncomplicated; Z68.41 Body mass index [BMI] 40.0-44.9, adult; I11.0 Hypertensive heart disease with heart failure
CPT/HCPCS: 78452; 93017; A9502; J2785

== ENCOUNTER 2020-11-26 16:10 | Emergency (ER) | payer MEDICARE, MEDICAID, SELFPAY ==
[2020-11-26 16:10] VITALS: BP 115/80; PULSE 82; RESP 20; TEMP 36.7; O2SAT 95; BMI 43.2
--- NOTE | 2020-11-26 16:25 | XR_ITS ---
PROCEDURE: XR CHEST 2V CLINICAL HISTORY: COUGH COMPARISON: CR XR CHEST 2V from 09/03/2020 CR XR CHEST 2V from 10/31/[address] CHEST WO CON from 10/31/2020 CR XR CHEST PORTABLE from 10/31/2020 FINDINGS: There has been interval improvement in the left basilar infiltrate. No new infiltrate, pulmonary edema, or pleural effusion. Cardiac and mediastinal contours remain within normal limits and unchanged. Skeletal structures unremarkable. IMPRESSION: Interval improvement of left basilar infiltrate Dictated by: Lisette Potts MD 11/26/2020 16:54 Lisette Potts MD in [place] 11/26/2020 16:54
--- NOTE | 2020-11-26 16:35 | HMH.EDUTC ---
[facility] [place] Impression: Persistent dyspnea after COVID-19 Pneumonia Qualifiers: Pneumonia type: due to unspecified organism Laterality: bilateral Lung location: unspecified part of lung Qualified Code(s): J18.9 - Pneumonia, unspecified organism COPD (chronic obstructive pulmonary disease) Qualifiers: COPD type: unspecified COPD Qualified Code(s): J44.9 - Chronic obstructive pulmonary disease, unspecified Disposition: Home, Self-Care Condition on Discharge: Good Instructions: DI for Pneumonia -- Adult Additional Instructions: Follow up with PCP next week Prescriptions: Fluticasone/Vilanterol [Breo Ellipta 200-25 Mcg INH] 1 inh IH DAILY 30 Days #1 device Transmission Status: Pending to [facility] predniSONE [Prednisone 20mg Tab] 20 mg PO BID 5 Days #10 tab [facility]: [facility] Azithromycin [Z-Chinedu 250mg Tab] 250 mg PO DIRECTED #6 tab Transmission Status: Pending to [facility] Referrals: Jorge Velasco MD [Primary Care Provider] - Time of Disposition: 16:48 Medical Decision Making - Jonathan Inquiry Pt receiving controlled substance: No Vital Signs: 11/26/20 16:10 Temperature 98.0 F Temperature Source Oral Pulse Rate [Right Brachial] 82 Respiratory Rate 20 Blood Pressure [Right Arm] 115/80 Blood Pressure Mean [Right Arm] 91 Blood Pressure Source [Right Arm] Automatic Cuff Blood Pressure Position [Right Arm] Sitting 02 Sat by Pulse Oximetry 95 Oxygen Delivery Method Room Air Orders (Tests/Meds): ORDERS Category Date Time Status Chest XR 2 view (NOT portable) [XR chest 2V] Stat Exams 11/26/20 16:25 Taken - Radiology Data #1 Image(s): Chest Image Reviewed: Yes I reviewed the patient's radiology image Preliminary Findings: Abnormal (ground glass, infiltrates) [facility] [place] General Stated complaint: MORROW,cough,running nose Time Seen by Provider: 11/26/20 16:35 Mode of Arrival: Ambulatory Source of Information: Patient Limitations: No Limitations Description of Symptoms (Recalled from Triage Doc. by RN): PATIENT C/O PRODUCTIVE COUGH, RUNNY NOSE, AND SOA X 2 DAYS HEENT Symptoms (Recalled from RN notes): No Resp Symptoms (Recalled from RN notes): Yes Skin Symptoms (Recalled from RN notes): No MS Symptoms (Recalled from RN notes): No Functional Status (Recalled from RN notes): WNL - History of Present Illness Provider Complaint: Cough and chest congestion X 5 days. No fever. Has headache, runny nose. History of COPD. Is SOA. Inhalers not helping. Cough productive of clear to yellow sputum. No vomiting or diarrhea. Onset (ago): day(s) (5) Location: chest Relieving factors: none Exacerbating factors: none Associated symptoms: denies other symptoms, cough, shortness of breath Treatments prior to arrival: none - Related Data Home Medications Medication Instructions Recorded Confirmed Albuterol Sulfate [Albuterol 2 puffs IH Q4HP PRN 03/26/20 11/11/20 Sulfate Hfa] ranolazine 1,000 mg 1,000 mg PO BID tab 11/24/20 tablet,extended release,12 hr Previous Rx's Medication Instructions Recorded topiramate 100 mg tablet 100 mg PO DAILY #30 tab 03/09/20 Mupirocin [Bactroban 2% Ointment 1 applicatio TP BID #1 tube 03/28/20 22gm tube] aspirin 81 mg chewable tablet 81 mg PO DAILY #90 tab 06/29/20 atorvastatin 40 mg tablet 40 mg PO HS #90 tab 06/29/20 metoprolol succinate 25 mg 25 mg PO DAILY #90 tab 06/29/20 tablet,extended release 24 hr furosemide 40 mg tablet 40 mg PO BID #60 tab 08/19/20 fluticasone furoate 100 1 inh INHALATION DAILY #28 each 09/07/20 mcg-vilanterol 25 mcg/dose inhalation powder fluticasone propionate 50 1 spray INTRANASAL DAILY #9.9 ml 09/07/20 mcg/actuation nasal spray,suspension gabapentin 800 mg tablet 800 mg PO TID #90 tab 09/07/20 fluoxetine 40 mg capsule 40 mg PO DAILY #30 cap 09/16/20 Diclofenac Sodium [Voltaren 100gm 100 gm TP QID 10 Days #100 10/03/
[2020-11-26 17:13] VITALS: BP 115/80; PULSE 82; RESP 20; TEMP 36.7; O2SAT 95
== END 2020-11-26 17:15 | disposition home or self-care (01) ==
PROVIDERS: Emergency Provider Physician Assistant; PCP Emergency Medicine
DX: J18.9 Pneumonia, unspecified organism (principal); J44.9 Chronic obstructive pulmonary disease, unspecified; Z86.16 Personal history of COVID-19; F41.8 Other specified anxiety disorders; K21.9 Gastro-esophageal reflux disease without esophagitis; E78.5 Hyperlipidemia, unspecified; I10 Essential (primary) hypertension; G43.709 Chronic migraine without aura, not intractable, without status migrainosus; F17.210 Nicotine dependence, cigarettes, uncomplicated; Z79.899 Other long term (current) drug therapy
CPT/HCPCS: G0463; 71046; 96372; 99202; J1030

== ENCOUNTER → 2020-11-27 09:57 | Outpatient (CLI) | payer MEDICARE, MEDICAID, SELFPAY ==
[2020-11-27 10:37] LABS: Basophils # 0.1 K/mm3 (0-0.2); Basophils % 0.6 % (0.1-2.0); Eosinophils # 0.4 K/mm3 (0.0-0.4); Eosinophils % 4.1 % (0.1-12.0); Hematocrit 40.8 % (42.0-52.0); Hemoglobin 13.6 g/dL (14.1-18.0); Lymphocytes # 1.7 K/mm3 (0.7-4.5); Lymphocytes % 18.3 % (10-50); Mean Corpuscular HGB Conc 33.3 g/dL (31.8-35.4); Mean Corpuscular Hemoglobin 30.4 pg (27.0-31.2); Mean Corpuscular Volume 91.3 fl (80-94); Mean Platelet Volume 7.9 fl (7.4-10.4); Monocytes # 0.5 K/mm3 (0.1-1.0); Monocytes % 5.8 % (1.7-9.3); Neutrophils # 6.5 K/mm3 (1.8-7.8); Neutrophils % 71.3 % (37.0-80.0); Platelet Count 254 K/mm3 (142-424); Red Blood Count 4.47 M/mm3 (4.60-6.20); Red Cell Distribution Width 14.8 % (11.5-17.5); White Blood Count 9.1 K/mm3 (4.8-10.8)
[2020-11-27 11:12] LABS: Chloride 106 mmol/L (98-107); Potassium 4.7 mmoL/L (3.5-5.1); Sodium 140 mmol/L (136-145)
[2020-11-27 11:15] LABS: Anion Gap 11.7 mEq/L (5-15); Blood Urea Nitrogen 15 mg/dl (9-20); Calcium 9.9 mg/dl (8.4-10.2); Carbon Dioxide 27 mmol/L (22.0-30.0); Estimated Glomerular Filt Rate 60 ml/min (>60); GFR (African American) 72 ML/MIN (>60); Glucose 103 mg/dl (74-100)
[2020-11-27 13:20] LABS: Coronavirus 19 IgG Antibody Negative (Negative); Coronavirus 19 IgM Antibody Negative (Negative)
== END ==
PROVIDERS: Visit Provider Nurse Practitioner Family
DX: R94.30 Abnormal result of cardiovascular function study, unspecified (principal)
CPT/HCPCS: 36415; 80048; 85025; 86328

== ENCOUNTER 2020-11-27 21:21 | Emergency (ER) | payer MEDICARE, MEDICAID, SELFPAY ==
[2020-11-27 21:22] VITALS: BP 129/68; PULSE 90; RESP 14; TEMP 36.5; O2SAT 96; BMI 43.2
--- NOTE | 2020-11-27 21:53 | XR_ITS ---
PROCEDURE: XR CHEST 2V CLINICAL HISTORY: SOb, cough COMPARISON: CR XR CHEST 2V from 10/31/[address] CHEST WO CON from 10/31/2020 CR XR CHEST PORTABLE from 10/31/2020 CR XR CHEST 2V from 11/26/2020 FINDINGS: The cardiomediastinal silhouette and pulmonary vascularity are within normal limits. The lungs are clear without infiltrates, suspicious nodules, or pleural effusions. No acute bony abnormalities. IMPRESSION: No acute findings. Dictated by: Dr. Bijan Klein MD 11/28/2020 06:37 Dr. Bijan Klein MD in [place] 11/28/2020 06:37
[2020-11-27 22:00] VITALS: BP 121/59; PULSE 71; RESP 15; O2SAT 97
[2020-11-27 22:05] LABS: Chloride 110 mmol/L (98-107)
[2020-11-27 22:06] LABS: Potassium 4.5 mmoL/L (3.5-5.1); Sodium 139 mmol/L (136-145)
[2020-11-27 22:08] LABS: Alanine Aminotransferase 18 U/L (12-78); Alkaline Phosphatase 74 U/L (38-126); Aspartate Amino Transferase 22 U/L (17-59); Bilirubin,Total 0.4 mg/dl (0.2-1.3); Blood Urea Nitrogen 14 mg/dl (9-20); Creatinine Clearance Estimated 83 mL/min (50-200); Estimated Glomerular Filt Rate 65 ml/min (>60); GFR (African American) 79 ML/MIN (>60)
[2020-11-27 22:09] LABS: Albumin Level 4.3 g/dl (3.5-5.0); Albumin/Globulin Ratio 1.3 (1.1-1.8); Anion Gap 11.5 mEq/L (5-15); Basophils % 0.2 % (0.1-2.0); Calcium 9.6 mg/dl (8.4-10.2); Carbon Dioxide 22 mmol/L (22.0-30.0); Eosinophils % 0.3 % (0.1-12.0); Globulin 3.2 g/dL (1.3-3.2); Glucose 116 mg/dl (74-100); Hematocrit 37.4 % (42.0-52.0); Hemoglobin 12.8 g/dL (14.1-18.0); Lymphocytes # 1.5 K/mm3 (0.7-4.5); Lymphocytes % 13.6 % (10-50); Mean Corpuscular HGB Conc 34.1 g/dL (31.8-35.4); Mean Corpuscular Hemoglobin 30.3 pg (27.0-31.2); Mean Corpuscular Volume 88.8 fl (80-94); Mean Platelet Volume 7.9 fl (7.4-10.4); Monocytes # 0.5 K/mm3 (0.1-1.0); Monocytes % 4.5 % (1.7-9.3); Neutrophils # 8.9 K/mm3 (1.8-7.8); Neutrophils % 81.4 % (37.0-80.0); Platelet Count 245 K/mm3 (142-424); Red Blood Count 4.22 M/mm3 (4.60-6.20); Red Cell Distribution Width 13.9 % (11.5-17.5); Total Protein,Serum 7.5 g/dl (6.3-8.2)
[2020-11-27 22:14] LABS: C-Reactive Protein 6.3 mg/L (0-4)
--- NOTE | 2020-11-27 22:18 | HMH.EDNVD ---
ED Disposition Clinical Impression: Bronchitis CAD (coronary artery disease), [place] coronary artery Qualifiers: [place] vs. transplanted heart: [place] heart Associated angina: with unspecified angina Qualified Code(s): I25.119 - Atherosclerotic heart disease of [place] coronary artery with unspecified angina pectoris Disposition: Home, Self-Care Condition on Discharge: Good Instructions: DI for Nausea -- Adult Additional Instructions: fluids and call card for follow up and pcp Referrals: Jorge Velasco MD [Primary Care Provider] - - Critical Care Critical Care Time: No Attestation: On 11/27/20, the high probability of a clinically significant, sudden or life threatening deterioration of the following system(s) required my full and direct attention, intervention and personal management. The time I documented below is in addition to time spent performing reported procedures but includes the following listed in this critical care notation. Medical Decision Making - Medical Records Medical records reviewed: Yes: I reviewed the patient's medical records. - Jonathan Inquiry Pt receiving controlled substance: No Vital Signs: 11/27/20 21:22 11/27/20 22:00 11/27/20 22:30 Temperature 97.7 F Temperature Source Oral Pulse Rate [Right] 90 71 75 Respiratory Rate 14 15 17 Blood Pressure [Right Arm] 129/68 121/59 L 114/69 Blood Pressure Mean [Right Arm] 88 79 84 Blood Pressure Source [Right Arm] Automatic Cuff Automatic Cuff Blood Pressure Position [Right Arm] Supine Supine 02 Sat by Pulse Oximetry 96 97 95 Oxygen Delivery Method Room Air Room Air Room Air 11/27/20 23:00 Temperature Temperature Source Pulse Rate [Right] 69 Respiratory Rate 17 Blood Pressure [Right Arm] 110/59 L Blood Pressure Mean [Right Arm] 76 Blood Pressure Source [Right Arm] Automatic Cuff Blood Pressure Position [Right Arm] Supine 02 Sat by Pulse Oximetry 98 Oxygen Delivery Method Room Air - Lab Data Lab results reviewed: Yes: I reviewed the patient's lab results. Lab Results 11/27/20 21:49: WBC 11.0 H, RBC 4.22 L, Hgb 12.8 L, Hct 37.4 L, MCV 88.8, MCH 30.3, MCHC 34.1, RDW 13.9, Plt Count 245, MPV 7.9, Neut % (Auto) 81.4 H, Lymph % (Auto) 13.6, [place] % (Auto) 4.5, Eos % (Auto) 0.3, Baso % (Auto) 0.2, Neut # (Auto) 8.9 H, Lymph # (Auto) 1.5, [place] # (Auto) 0.5, Eos # (Auto) 0.0, Baso # (Auto) 0.0, ESR 27 H 11/27/20 21:49: Sodium 139, Potassium 4.5, Chloride 110 H, Carbon Dioxide 22, Anion Gap 11.5, BUN 14, Creatinine 1.20, Estimated Creat Clear 83, Estimated GFR 65, Est GFR ( Amer) 79, Glucose 116 H, Calcium 9.6, Total Bilirubin 0.4, AST 22, ALT 18, Alkaline Phosphatase 74, C-Reactive Protein 6.3 H, Total Protein 7.5, Albumin 4.3, Globulin 3.2, Albumin/Globulin Ratio 1.3, Procalcitonin 0.039 Result diagrams: 11/27/20 21:49 11/27/20 21:49 Orders (Tests/Meds): ED MEDICATIONS Generic Name Dose Route Start Last Admin Trade Name Freq PRN Reason Stop Dose Admin Sodium Chloride 1,000 mls @ 999 mls/hr 11/27/20 22:00 11/27/20 21:56 Sod Chlor 0.9% 1000ml Bag IV 11/27/20 23:00 999 mls/hr .Q1H1M JABARI Administration Discontinued Medications Generic Name Dose Route Start Last Admin Trade Name Freq PRN Reason Stop Dose Admin Albuterol/Ipratropium 2 puff 11/27/20 22:26 11/27/20 22:52 Combivent 20mcg/100mcg Respimat Inhaler IH 11/27/20 22:27 2 puff ONCE ONE Administration Methylprednisolone Sodium Succinate 125 mg 11/27/20 21:53 11/27/20 21:57 Methylprednisolone Sod Succ 125mg Vial IV 11/27/20 21:54 125 mg ONCE ONE Administration Miscellaneous 1 unit 11/27/20 22:26 11/27/20 22:52 Aerochamber/Optihaler MC 11/27/20 22:27 1 unit ONCE ONE Administration Ondansetron HCl 4 mg 11/27/20 21:53 11/27/20 21:57 Ondansetron 4mg/2ml Vial IV 11/27/20 21:54 4 mg ONCE ONE Administration ORDERS Category Date Time Status Chest XR 2 view (NOT portable) [XR chest 2V] Stat Exams
[2020-11-27 22:28] LABS: Procalcitonin 0.039 ng/mL (0.0-2.0)
[2020-11-27 22:30] VITALS: BP 114/69; PULSE 75; RESP 17; O2SAT 95
[2020-11-27 22:35] LABS: Erythrocyte Sedimentation Rate 27 mm/hr (0-15)
[2020-11-27 23:00] VITALS: BP 110/59; PULSE 69; RESP 17; O2SAT 98
[2020-11-27 23:30] VITALS: BP 119/62; PULSE 73; RESP 17; O2SAT 95
[2020-11-28 00:04] VITALS: BP 119/62; PULSE 74; RESP 14; TEMP 36.5; O2SAT 95
== END 2020-11-28 00:08 | disposition home or self-care (01) ==
PROVIDERS: Emergency Provider Emergency Medicine; PCP Emergency Medicine
DX: J20.9 Acute bronchitis, unspecified (principal); I25.119 Atherosclerotic heart disease of native coronary artery with unspecified angina pectoris; Z01.84 Encounter for antibody response examination; E78.5 Hyperlipidemia, unspecified; K21.9 Gastro-esophageal reflux disease without esophagitis; F41.8 Other specified anxiety disorders; G43.709 Chronic migraine without aura, not intractable, without status migrainosus; Z79.899 Other long term (current) drug therapy
CPT/HCPCS: 36415; 71046; 80048; 80053; 84145; 85025; 85651; 86140; 86328; 96365; 96375; 99283; J2405

== ENCOUNTER 2020-11-30 08:49 | Day surgery (SDC) | payer MEDICARE, MEDICAID, SELFPAY ==
[2020-11-30] VITALS (9 sets, daily range): BP systolic 106–127; BP diastolic 62–84; PULSE 45–70; RESP 14–20; TEMP 36.6; O2SAT 91–98; BMI 43.2
--- NOTE | 2020-11-30 07:07 | IR_ITS ---
APPROVED REPORT Patient Location: Outpatient Chemical Processing Supervisor: ELISABET Ortiz RT (R) PROCEDURES Left heart catheterization Left ventriculogram Selective coronary angiogram INDICATION High risk abnormal Myoview, Angina pectoris, Informed consent was obtained prior to the procedure. COMPLICATIONS NONE Estimated Blood Loss: LESS THAN 10 MLS TECHNIQUE One percent lidocaine used to anesthetize the right anterior aspect of the wrist. The right radial artery was accessed via the Seldinger technique. A 6 [place] sheath was placed in the right radial artery. 2.5 mg of verapamil, 800 mcg of nitroglycerin, 1mg Lidocaine and 5000 U Heparin were given through the arterial sheath. The I Helen left catheter was also used to perform left heart catheterization, left ventriculogram and selective coronary angiogram. At the end of the procedure the sheath was removed good hemostasis was achieved using Traclet band, patient was transferred to the postop holding area in stable condition. ANGIOGRAPHIC RESULTS The left main artery Normal The left anterior descending artery Has mild diffuse vascular ectasia with no atherosclerosis. TYLER II flow was present The circumflex artery Nondominant with mild vascular ectasia with accompanying TYLER II flow The right coronary artery Is dominant with mild diffuse vascular ectasia accompanied by TYLER II flow The MCBRIDE ventriculogram reveals Dilated ventricle with preserved ejection fraction estimated at 55 to 60% The left ventricular end-diastolic pressure Severely elevated at 30 to 35 mmHg IMPRESSION Mild diffuse vascular ectasia accompanied by TYLER II flow throughout which is consistent with advanced endothelial dysfunction combined with diastolic dysfunction as evidenced by severely elevated LVEDP Dilated ventricle with preserved ejection fraction Severely elevated LVEDP PLAN 1. Treatment of severe diastolic dysfunction with loop diuretics 2. Long-acting nitrates and Ranexa for endothelial dysfunction 3. Avoidance of tobacco products 4. Evaluation of sleep apnea Electronically signed by : Win Linares, 11/30/2020 10:39:24
== END 2020-11-30 13:48 | disposition home or self-care (01) ==
LOC: CATHLAB 08:51
PROVIDERS: PCP Nurse Practitioner Family; Visit Provider Internal Medicine
DX: R94.30 Abnormal result of cardiovascular function study, unspecified (principal); I25.110 Atherosclerotic heart disease of native coronary artery with unstable angina pectoris; I50.33 Acute on chronic diastolic (congestive) heart failure; I11.0 Hypertensive heart disease with heart failure; R60.0 Localized edema; Z79.899 Other long term (current) drug therapy; G43.909 Migraine, unspecified, not intractable, without status migrainosus
CPT/HCPCS: 93458; 99152; C1725; C1760; C1769; J1644; Q9967

== ENCOUNTER 2020-12-06 01:23 | Emergency (ER) | payer MEDICARE, MEDICAID, SELFPAY ==
[2020-12-06 01:24] VITALS: BP 129/80; PULSE 85; RESP 20; TEMP 36.8; O2SAT 95; BMI 43.2
--- NOTE | 2020-12-06 01:33 | XR_ITS ---
PROCEDURE: XR CHEST 2V CLINICAL HISTORY: cough Cough, chest soreness, smoker COMPARISON: CR XR CHEST 2V from 10/31/[address] CHEST WO CON from 10/31/2020 CR XR CHEST 2V from 11/26/2020 CR XR CHEST 2V from 11/27/2020 FINDINGS: The cardiomediastinal silhouette and pulmonary vascularity are within normal limits. There is increased density in the left lower lobe consistent with an area of atelectasis or infiltrate. No acute bony abnormalities. IMPRESSION: Left lower lobe atelectasis and/or infiltrate Dictated by: Romario Vidal MD 12/06/2020 05:42 Romario Vidal MD in [place] 12/06/2020 05:42
--- NOTE | 2020-12-06 01:39 | ECG_ITS ---
APPROVED REPORT Exam: Resting ECG HR:85 bpm ECG Measurements Heart Rate 85 AXES TX 184 P 67 QRSd 84 QRS 3 QT 380 T 58 QTc 452 Conclusion Normal sinus rhythm Isolated Q wave in III, poor R-wave progression Abnormal ECG Electronically signed by : Carlos Noland, 12/07/2020 17:22:50
--- NOTE | 2020-12-06 01:46 | HMH.EDGENADL ---
ED Disposition Clinical Impression: Cough, Atypical chest pain Disposition: Home, Self-Care Condition on Discharge: Fair Instructions: DI for Cough -- Adult, DI for Atypical Chest Pain Additional Instructions: You have been evaluated for cough, likely due to viral inflammation or bronchitis. You have been evaluated for chest pain, without evidence of acute coronary syndrome. Please follow-up with your primary care doctor as soon as available. Follow-up with your hotel staff member. Return to the emergency department for any new or worsening symptoms. Referrals: Dio Albarado APRN [Primary Care Provider] - Time of Disposition: 02:36 - Critical Care Critical Care Time: No Attestation: On 12/06/20, the high probability of a clinically significant, sudden or life threatening deterioration of the following system(s) required my full and direct attention, intervention and personal management. The time I documented below is in addition to time spent performing reported procedures but includes the following listed in this critical care notation. Medical Decision Making - Medical Records Medical records reviewed: Yes: I reviewed the patient's medical records. - Jonathan Inquiry Pt receiving controlled substance: No Vital Signs: 12/06/20 01:24 12/06/20 02:00 12/06/20 02:30 Temperature 98.3 F Temperature Source Oral Pulse Rate [Left Radial] 85 83 77 Respiratory Rate 20 16 14 Blood Pressure [Right Arm] 129/80 109/74 L 111/69 Blood Pressure Mean [Right Arm] 96 85 83 Blood Pressure Source [Right Arm] Automatic Cuff Automatic Cuff Automatic Cuff Blood Pressure Position [Right Arm] Supine Supine Supine 02 Sat by Pulse Oximetry 95 92 L 92 L Oxygen Delivery Method Room Air Room Air Room Air - Lab Data Lab Results 12/06/20 01:46: WBC 15.6 H, RBC 4.26 L, Hgb 12.8 L, Hct 38.7 L, MCV 90.8, MCH 30.0, MCHC 33.0, RDW 13.6, Plt Count 249, MPV 7.6, Neut % (Auto) 66.1, Lymph % (Auto) 24.1, [place] % (Auto) 8.1, Eos % (Auto) 1.2, Baso % (Auto) 0.5, Neut # (Auto) 10.3 H, Lymph # (Auto) 3.8, [place] # (Auto) 1.3 H, Eos # (Auto) 0.2, Baso # (Auto) 0.1, Total Counted 100, Neutrophils % (Manual) 67, Band Neutrophils % 1.0, Lymphocytes % (Manual) 24, Monocytes % (Manual) 8, Platelet Estimate Normal, RBC Morphology Normal 12/06/20 01:46: Sodium 137, Potassium 3.2 L, Chloride 105, Carbon Dioxide 25, Anion Gap 10.2, BUN 11, Creatinine 1.30 H, Estimated Creat Clear 76, Estimated GFR 60, Est GFR ( Amer) 72, Glucose 107 H, Calcium 9.0, Troponin I < 0.01 12/06/20 01:46: NT-Pro-B Natriuret Pep 54.1 Result diagrams: 12/06/20 01:46 12/06/20 01:46 Orders (Tests/Meds): ORDERS Category Date Time Status CXR 2 view (NOT portable) [XR chest 2V] Stat Exams 12/06/20 01:33 Taken Troponin I Q3H Lab 12/06/20 03:17 Received Troponin I Q3H Lab 12/06/20 07:45 Ordered EKG Request [ECG Request by /Page] Stat Y 12/06/20 01:39 Ordered - ECG Data Tracing #1 Sinus rhythm with ventricular rate of 85 bpm. QRS 84, QTc 452. ST segment flattening in lead III. Slight ST segment elevation in 2. Similar to previous EKGs. - ZACK Score for Non-Stemi Age of Patient: 40-49 years old Heart Rate: 70-89 bpm Systolic Blood Pressure: 140-159 mmHg Serum Creatinine: 1.20-1.59 mg/dl CHF [place] Class: I-No CHF Other Risk Factors: None Non-Stemi Risk Score: 68 Medical Decision Narrative: In summary this is a 45-year-old male with history of COPD and cardiac catheterization 1 week ago presenting to the emergency department with chest pain. Patient clinically stable on arrival. Vital signs are within normal limits. He did not have stents placed at last heart cath. Concern for pneumonia, bronchitis, CHF exacerbation, pericarditis, myocarditis. Will obtain CBC, BMP, chest x-ray, EKG, troponin profile, proBNP. Patient given 325 chewable aspirin. Ischial EKG shows evidence of old ischemia, but no new or worsening ST segment elevations. Laboratory resul
[2020-12-06 01:59] LABS: Basophils # 0.1 K/mm3 (0-0.2); Basophils % 0.5 % (0.1-2.0); Eosinophils # 0.2 K/mm3 (0.0-0.4); Eosinophils % 1.2 % (0.1-12.0); Hematocrit 38.7 % (42.0-52.0); Hemoglobin 12.8 g/dL (14.1-18.0); Lymphocytes # 3.8 K/mm3 (0.7-4.5); Lymphocytes % 24.1 % (10-50); Mean Corpuscular Volume 90.8 fl (80-94); Mean Platelet Volume 7.6 fl (7.4-10.4); Monocytes # 1.3 K/mm3 (0.1-1.0); Monocytes % 8.1 % (1.7-9.3); Neutrophils # 10.3 K/mm3 (1.8-7.8); Neutrophils % 66.1 % (37.0-80.0); Platelet Count 249 K/mm3 (142-424); Red Blood Count 4.26 M/mm3 (4.60-6.20); Red Cell Distribution Width 13.6 % (11.5-17.5); White Blood Count 15.6 K/mm3 (4.8-10.8)
[2020-12-06 02:00] VITALS: BP 109/74; PULSE 83; RESP 16; O2SAT 92
[2020-12-06 02:06] LABS: MANUAL DIFFERENTIAL MANUAL DIFFERENTIAL (MANUAL DIFF)
[2020-12-06 02:10] LABS: Anion Gap 10.2 mEq/L (5-15); Blood Urea Nitrogen 11 mg/dl (9-20); Carbon Dioxide 25 mmol/L (22.0-30.0); Chloride 105 mmol/L (98-107); Creatinine Clearance Estimated 76 mL/min (50-200); Estimated Glomerular Filt Rate 60 ml/min (>60); GFR (African American) 72 ML/MIN (>60); Glucose 107 mg/dl (74-100); Potassium 3.2 mmoL/L (3.5-5.1); Sodium 137 mmol/L (136-145)
[2020-12-06 02:20] LABS: NT Pro Brain Natriuretic Pep. 54.1 pg/mL (0-125)
[2020-12-06 02:25] LABS: Lymphocytes % 24 % (10-50); Monocytes % 8 % (2-9); Neutrophils % 67 % (42-76); Total Cells Counted 100
[2020-12-06 02:26] LABS: Platelet Estimate Normal; RBC Morphology Normal; Troponin I < 0.01 ng/ml (0.00-0.034)
[2020-12-06 02:30] VITALS: BP 111/69; PULSE 77; RESP 14; O2SAT 92
[2020-12-06 03:57] LABS: Troponin I < 0.01 ng/ml (0.00-0.034)
[2020-12-06 04:03] VITALS: BP 119/69; PULSE 71; RESP 16; TEMP 36.4; O2SAT 93
== END 2020-12-06 04:10 | disposition home or self-care (01) ==
PROVIDERS: Emergency Provider Emergency Medicine; PCP Nurse Practitioner Family
DX: R07.89 Other chest pain (principal); J44.9 Chronic obstructive pulmonary disease, unspecified; Z86.16 Personal history of COVID-19; I10 Essential (primary) hypertension; E78.5 Hyperlipidemia, unspecified; K21.9 Gastro-esophageal reflux disease without esophagitis; F17.210 Nicotine dependence, cigarettes, uncomplicated; Z79.899 Other long term (current) drug therapy; R06.02 Shortness of breath
CPT/HCPCS: 71046; 80048; 83880; 84484; 85007; 85025; 93005; 99284

== ENCOUNTER → 2021-01-06 08:39 | Outpatient (CLI) | payer MEDICARE, MEDICAID, SELFPAY ==
[2021-01-06 09:34] LABS: Anion Gap 15.7 mEq/L (5-15); Blood Urea Nitrogen 11 mg/dl (9-20); Calcium 9.3 mg/dl (8.4-10.2); Carbon Dioxide 22 mmol/L (22.0-30.0); Chloride 105 mmol/L (98-107); Estimated Glomerular Filt Rate 72 ml/min (>60); GFR (African American) 88 ML/MIN (>60); Glucose 113 mg/dl (74-100); Potassium 3.7 mmoL/L (3.5-5.1); Sodium 139 mmol/L (136-145)
== END ==
PROVIDERS: Visit Provider Physician Assistant
DX: E66.9 Obesity, unspecified (principal); E87.6 Hypokalemia; G47.33 Obstructive sleep apnea (adult) (pediatric); I25.119 Atherosclerotic heart disease of native coronary artery with unspecified angina pectoris; J18.9 Pneumonia, unspecified organism; K21.9 Gastro-esophageal reflux disease without esophagitis; R06.00 Dyspnea, unspecified; R07.89 Other chest pain; R60.0 Localized edema; R60.9 Edema, unspecified
CPT/HCPCS: 36415; 80048

== ENCOUNTER → 2021-01-11 13:40 | Outpatient (CLI) | payer MEDICARE, MEDICAID, SELFPAY ==
--- NOTE | 2021-01-11 14:03 | XR_ITS ---
PROCEDURE: XR CHEST 2V CLINICAL HISTORY: dyspnea COMPARISON: CT CT CHEST WO CON from 10/31/2020 CR XR CHEST 2V from 11/26/2020 CR XR CHEST 2V from 11/27/2020 CR XR CHEST 2V from 12/06/2020 FINDINGS: The cardiomediastinal silhouette and pulmonary vascularity are within normal limits. Calcified granuloma is present in the left lower lobe. Previously noted atelectatic change in the left lower lobe has improved. There are some increased markings in the right infrahilar region which could be due to patchy area of atelectasis or infiltrate. No acute bony abnormalities. IMPRESSION: 1. Improvement in left lower lobe atelectasis. 2. Patchy atelectasis or infiltrate in the right infrahilar region Dictated by: Romario Vidal MD 01/11/2021 15:31 Romario Vidal MD in [place] 01/11/2021 15:31
[2021-01-11 15:27] LABS: Anion Gap 12.2 mEq/L (5-15); Blood Urea Nitrogen 10 mg/dl (9-20); Calcium 9.3 mg/dl (8.4-10.2); Carbon Dioxide 23 mmol/L (22.0-30.0); Chloride 105 mmol/L (98-107); Estimated Glomerular Filt Rate 72 ml/min (>60); GFR (African American) 88 ML/MIN (>60); Glucose 98 mg/dl (74-100); Potassium 4.2 mmoL/L (3.5-5.1); Sodium 136 mmol/L (136-145)
[2021-01-11 15:38] LABS: NT Pro Brain Natriuretic Pep. 127 pg/mL (0-125)
== END ==
PROVIDERS: Visit Provider Urology
DX: E66.01 Morbid (severe) obesity due to excess calories (principal); E78.2 Mixed hyperlipidemia; I25.119 Atherosclerotic heart disease of native coronary artery with unspecified angina pectoris; I50.33 Acute on chronic diastolic (congestive) heart failure; R06.00 Dyspnea, unspecified; R60.0 Localized edema; E78.5 Hyperlipidemia, unspecified; R94.30 Abnormal result of cardiovascular function study, unspecified; I11.0 Hypertensive heart disease with heart failure
CPT/HCPCS: 71046; 80048; 83880

== ENCOUNTER 2021-01-17 21:49 | Emergency (ER) | payer MEDICARE, MEDICAID, SELFPAY ==
--- NOTE | 2021-01-17 21:54 | HMH.EDGENADL ---
ED Disposition Clinical Impression: Dyspnea Qualifiers: Dyspnea type: orthopnea Qualified Code(s): R06.01 - Orthopnea Disposition: Home, Self-Care Condition on Discharge: Good Additional Instructions: Continue taking Levaquin and prednisone as prescribed. Also use your Lasix as prescribed for diuresis. Use inhaler more frequently over the next several days. Follow-up with PCP return immediately if worsening symptoms prior to that time. Referrals: Dio Albarado APRN [Primary Care Provider] - - Critical Care Critical Care Time: No Attestation: On , the high probability of a clinically significant, sudden or life threatening deterioration of the following system(s) required my full and direct attention, intervention and personal management. The time I documented below is in addition to time spent performing reported procedures but includes the following listed in this critical care notation. Medical Decision Making - Medical Records Medical records reviewed: Yes: I reviewed the patient's medical records. - Jonathan Inquiry Pt receiving controlled substance: No Vital Signs: 01/17/21 22:05 01/17/21 22:20 01/17/21 22:30 Temperature 97.5 F L Temperature Source Oral Pulse Rate 78 74 Pulse Rate [Right Brachial] 76 Respiratory Rate 23 20 17 Blood Pressure 118/65 120/69 Blood Pressure [Right Arm] 122/71 Blood Pressure Mean [Right Arm] 88 Blood Pressure Source [Right Arm] Automatic Cuff Blood Pressure Position [Right Arm] Sitting 02 Sat by Pulse Oximetry 96 94 L 92 L Oxygen Delivery Method Room Air - Lab Data Lab Results 01/17/21 20:05: WBC 16.4 H, RBC 4.45 L, Hgb 13.3 L, Hct 39.7 L, MCV 89.1, MCH 29.8, MCHC 33.4, RDW 14.2, Plt Count 289, MPV 7.5, Neut % (Auto) 76.5, Lymph % (Auto) 16.3, [place] % (Auto) 6.5, Eos % (Auto) 0.3, Baso % (Auto) 0.3, Neut # (Auto) 12.5 H, Lymph # (Auto) 2.7, [place] # (Auto) 1.1 H, Eos # (Auto) 0.0, Baso # (Auto) 0.1, Total Counted 100, Neutrophils % (Manual) 74, Lymphocytes % (Manual) 21, Monocytes % (Manual) 5, Platelet Estimate Normal, RBC Morphology Normal 01/17/21 20:05: Sodium 135 L, Potassium 4.5, Chloride 102, Carbon Dioxide 24, Anion Gap 13.5, BUN 18, Creatinine 1.10, Estimated Creat Clear 90, Estimated GFR 72, Est GFR ( Amer) 88, Glucose 123 H, Calcium 9.3, Total Bilirubin 0.4, AST 21, ALT 22, Alkaline Phosphatase 71, Troponin I < 0.01, NT-Pro-B Natriuret Pep 56.1, Total Protein 7.0, Albumin 4.3, Globulin 2.7, Albumin/Globulin Ratio 1.6 01/17/21 20:05: Magnesium 2.1 Result diagrams: 01/17/21 20:05 01/17/21 20:05 Orders (Tests/Meds): ED MEDICATIONS Generic Name Dose Route Start Last Admin Trade Name Freq PRN Reason Stop Dose Admin Albuterol Sulfate 2 puffs 01/17/21 22:21 01/17/21 22:32 Albuterol-Hfa 90mcg/Puff Inhaler 8gm IH 02/16/21 22:20 2 puffs Q4HP PRN Administration Shortness Of Breath ORDERS Category Date Time Status XR chest portable Stat Exams 01/17/21 22:13 Taken Troponin I Q3H Lab 01/18/21 01:15 Ordered Troponin I Q3H Lab 01/18/21 04:15 Ordered Medical Decision Narrative: Patient is a 45-year-old male presenting with dyspnea. Saturations greater than 95% on room air. No conversational dyspnea noted the patient does have some orthopnea and some end expiratory wheezing. Differential diagnoses do include mild CHF exacerbation versus mild COPD exacerbation versus bronchitis versus pneumonia versus atypical ACS versus anemia. At this time, patient given albuterol inhaler to use for his expiratory wheezing. He is already on a course of steroids and Levaquin. X-ray will be obtained to ensure no consolidation/infiltrate representing a lower respiratory tract infection. Troponin and BNP with an EKG will be obtained. EKG is nonischemic. BNP and troponin within normal limits. All basic labs are unremarkable except for a mild leukocytosis which I do believe is explained by his steroid use. At this time, he did not a
[2021-01-17 22:05] VITALS: BP 122/71; PULSE 76; RESP 23; TEMP 36.4; O2SAT 96; BMI 43.2
--- NOTE | 2021-01-17 22:13 | XR_ITS ---
PROCEDURE: XR CHEST PORTABLE CLINICAL HISTORY: dyspnea COMPARISON: CT CT CHEST WO CON from 10/31/2020 CR XR CHEST 2V from 11/27/2020 CR XR CHEST 2V from 12/06/2020 CR XR CHEST 2V from 01/11/2021 FINDINGS: The cardiomediastinal silhouette and pulmonary vascularity are within normal limits. The lungs are clear without infiltrates, suspicious nodules, or pleural effusions. No acute bony abnormalities. IMPRESSION: No acute findings. Dictated by: Romario Vidal MD 01/18/2021 04:42 Romario Vidal MD in [place] 01/18/2021 04:42
[2021-01-17 22:20] VITALS: BP 118/65; PULSE 78; RESP 20; O2SAT 94
[2021-01-17 22:24] LABS: Basophils # 0.1 K/mm3 (0-0.2); Basophils % 0.3 % (0.1-2.0); Eosinophils % 0.3 % (0.1-12.0); Hematocrit 39.7 % (42.0-52.0); Hemoglobin 13.3 g/dL (14.1-18.0); Lymphocytes # 2.7 K/mm3 (0.7-4.5); Lymphocytes % 16.3 % (10-50); Mean Corpuscular HGB Conc 33.4 g/dL (31.8-35.4); Mean Corpuscular Hemoglobin 29.8 pg (27.0-31.2); Mean Corpuscular Volume 89.1 fl (80-94); Mean Platelet Volume 7.5 fl (7.4-10.4); Monocytes # 1.1 K/mm3 (0.1-1.0); Monocytes % 6.5 % (1.7-9.3); Neutrophils # 12.5 K/mm3 (1.8-7.8); Neutrophils % 76.5 % (37.0-80.0); Platelet Count 289 K/mm3 (142-424); Red Blood Count 4.45 M/mm3 (4.60-6.20); Red Cell Distribution Width 14.2 % (11.5-17.5); White Blood Count 16.4 K/mm3 (4.8-10.8)
--- NOTE | 2021-01-17 22:25 | ECG_ITS ---
APPROVED REPORT Exam: Resting ECG HR:73 bpm ECG Measurements Heart Rate 73 AXES IN 182 P 55 QRSd 92 QRS 17 QT 428 T 58 QTc 471 Conclusion Normal sinus rhythm Possible Lateral infarct, age undetermined Abnormal ECG Electronically signed by : Carlos Noland, 01/20/2021 13:59:02
[2021-01-17 22:26] LABS: Chloride 102 mmol/L (98-107); MANUAL DIFFERENTIAL MANUAL DIFFERENTIAL (MANUAL DIFF)
[2021-01-17 22:27] LABS: Potassium 4.5 mmoL/L (3.5-5.1); Sodium 135 mmol/L (136-145)
[2021-01-17 22:29] LABS: Alanine Aminotransferase 22 U/L (12-78); Alkaline Phosphatase 71 U/L (38-126); Anion Gap 13.5 mEq/L (5-15); Aspartate Amino Transferase 21 U/L (17-59); Bilirubin,Total 0.4 mg/dl (0.2-1.3); Blood Urea Nitrogen 18 mg/dl (9-20); Carbon Dioxide 24 mmol/L (22.0-30.0); Creatinine Clearance Estimated 90 mL/min (50-200); Estimated Glomerular Filt Rate 72 ml/min (>60); GFR (African American) 88 ML/MIN (>60)
[2021-01-17 22:30] VITALS: BP 120/69; PULSE 74; RESP 17; O2SAT 92
[2021-01-17 22:30] LABS: Albumin Level 4.3 g/dl (3.5-5.0); Albumin/Globulin Ratio 1.6 (1.1-1.8); Calcium 9.3 mg/dl (8.4-10.2); Globulin 2.7 g/dL (1.3-3.2); Glucose 123 mg/dl (74-100)
--- NOTE | 2021-01-17 22:36 | PC.NURSE ---
Rad at bedside
[2021-01-17 22:39] LABS: NT Pro Brain Natriuretic Pep. 56.1 pg/mL (0-125)
[2021-01-17 22:42] LABS: Troponin I < 0.01 ng/ml (0.00-0.034)
[2021-01-17 22:49] LABS: Lymphocytes % 21 % (10-50); Monocytes % 5 % (2-9); Neutrophils % 74 % (42-76); Total Cells Counted 100
[2021-01-17 22:50] LABS: Platelet Estimate Normal; RBC Morphology Normal
[2021-01-17 23:14] LABS: Magnesium 2.1 mg/dl (1.6-2.3)
[2021-01-17 23:52] VITALS: BP 146/107; PULSE 79; RESP 20; TEMP 36.5; O2SAT 93
== END 2021-01-17 23:55 | disposition home or self-care (01) ==
PROVIDERS: Emergency Provider Emergency Medicine; PCP Nurse Practitioner Family
DX: R06.01 Orthopnea (principal); I50.9 Heart failure, unspecified; J44.9 Chronic obstructive pulmonary disease, unspecified; E78.5 Hyperlipidemia, unspecified; I10 Essential (primary) hypertension; F41.8 Other specified anxiety disorders; G43.709 Chronic migraine without aura, not intractable, without status migrainosus; K21.9 Gastro-esophageal reflux disease without esophagitis; Z87.891 Personal history of nicotine dependence; Z79.899 Other long term (current) drug therapy
CPT/HCPCS: 71045; 80053; 83735; 83880; 84484; 85007; 85025; 93005; 99282

== ENCOUNTER 2021-01-30 19:02 | Emergency (ER) | payer MEDICARE, MEDICAID, SELFPAY ==
[2021-01-30 19:54] VITALS: BP 115/65; PULSE 80; RESP 16; TEMP 37.1; O2SAT 98; BMI 42.9
--- NOTE | 2021-01-30 20:01 | HMH.EDUTC ---
[facility] [place] Clinical Impression: Numbness of right hand Disposition: Home, Self-Care Condition on Discharge: Good Instructions: DI for Numbness/Tingling Additional Instructions: Follow up with Dio this week Prescriptions: methylPREDNISolone [Medrol 4mg tab] 4 mg PO DIRECTED #21 tab Transmission Status: Pending to [id number] Referrals: Dio Albarado APRN [Primary Care Provider] - Time of Disposition: 20:20 Medical Decision Making - Jonathan Inquiry Pt receiving controlled substance: No Vital Signs: 01/30/21 19:54 Temperature 98.8 F Temperature Source Oral Pulse Rate [Left] 80 Respiratory Rate 16 Blood Pressure [Right Arm] 115/65 Blood Pressure Mean [Right Arm] 81 Blood Pressure Source [Right Arm] Automatic Cuff Blood Pressure Position [Right Arm] Sitting 02 Sat by Pulse Oximetry 98 Oxygen Delivery Method Room Air Orders (Tests/Meds): ORDERS Category Date Time Status XR hand RT min 3V Stat Exams 01/30/21 20:04 Taken - Radiology Data #1 Image(s): Hand Image Reviewed: Yes I reviewed the patient's radiology results Preliminary Findings: Normal/NAD [facility] [place]PI - General Stated complaint: R hand swollen/numb Time Seen by Provider: 01/30/21 20:01 Mode of Arrival: Ambulatory Source of Information: Patient Limitations: No Limitations Description of Symptoms (Recalled from Triage Doc. by RN): RIGHT HAND SWELLING, NO FEELING IN RIGHT HAND HEENT Symptoms (Recalled from RN notes): No Resp Symptoms (Recalled from RN notes): No Skin Symptoms (Recalled from RN notes): No MS Symptoms (Recalled from RN notes): Yes Functional Status (Recalled from RN notes): WNL - History of Present Illness Provider Complaint: Patient states that his right hand has been swollen since he woke up this morning. States that it woke him up from sleep because it hurt so bad that he wanted to cry, but also states that it is numb. His says when she pinches him he cannot feel it. Had some neck pain. States he fell a few days ago and scraped his lower leg but doesn't recall doing anything to his hand at that time. Onset (ago): hour(s) (12) Location: right, upper extremity Radiation: non-radiation Relieving factors: none Exacerbating factors: none Associated symptoms: denies other symptoms Treatments prior to arrival: none - Related Data Home Medications Medication Instructions Recorded Confirmed Famotidine [Acid Hot Blaster] 20 mg PO DAILY 11/30/20 01/17/21 Isosorbide Mononitrate [Imdur 60mg 30 mg PO DAILY 11/30/20 01/17/21 ER tablet] Fluticasone/Vilanterol [Breo 1 inh INHALATION DAILY 01/17/21 01/17/21 Ellipta] Furosemide [Furosemide 40MG tAB*] 40 mg PO BID 01/17/21 01/17/21 Spironolactone 50 mg PO BID 01/17/21 01/17/21 Varenicline Tartrate [Chantix See Rx Instructions PO PER PKG DIR 01/17/21 01/17/21 Starting Month Box] Previous Rx's Medication Instructions Recorded topiramate 100 mg tablet 100 mg PO DAILY #30 tab 03/09/20 aspirin 81 mg chewable tablet 81 mg PO DAILY #90 tab 06/29/20 atorvastatin 40 mg tablet 40 mg PO HS #90 tab 06/29/20 metoprolol succinate 25 mg 25 mg PO DAILY #90 tab 06/29/20 tablet,extended release 24 hr fluticasone propionate 50 1 spray INTRANASAL DAILY #9.9 ml 09/07/20 mcg/actuation nasal spray,suspension montelukast 10 mg tablet 10 mg PO QPM #30 tab 10/12/20 omeprazole 40 mg capsule,delayed 40 mg PO DAILY #30 cap 10/22/20 release albuterol sulfate 90 mcg/actuation 2 puff INHALATION Q4-6H PRN #8.5 g 12/07/20 aerosol inhaler gabapentin 800 mg tablet 800 mg PO TID #90 tab 12/30/20 ranolazine 1,000 mg 1,000 mg PO BID #60 tab 01/03/21 tablet,extended release,12 hr fluoxetine 40 mg capsule 40 mg PO DAILY #30 cap 01/24/21 risperidone 1 mg tablet 1 mg PO BID #60 tab 01/24/21 methylPREDNISolone [Medrol 4mg 4 mg PO DIRECTED #21 tab 01/30/21 tab] Allergies Allergy/AdvReac Type Severity Reaction Status Date / Time No Known All
--- NOTE | 2021-01-30 20:04 | XR_ITS ---
PROCEDURE: XR HAND RT MIN 3V CLINICAL INDICATION: SWELLING COMPARISON: No exams were available for comparison FINDINGS: No fracture or dislocation. No lytic or blastic change. There is normal mineralization. The joint spaces are well-preserved. No significant degenerative/arthritic changes. No erosive changes evident. Other findings:None. IMPRESSION: No acute findings. Dictated by: Romario Vidal MD 01/31/2021 06:17 Romario Vidal MD in [place] 01/31/2021 06:17
[2021-01-30 20:29] VITALS: BP 115/65; PULSE 80; RESP 16; TEMP 37.1; O2SAT 98
== END 2021-01-30 20:36 | disposition home or self-care (01) ==
PROVIDERS: Emergency Provider Physician Assistant; PCP Nurse Practitioner Family
DX: R20.0 Anesthesia of skin (principal); M54.2 Cervicalgia; S80.812A Abrasion, left lower leg, initial encounter; F41.8 Other specified anxiety disorders; K21.9 Gastro-esophageal reflux disease without esophagitis; E78.5 Hyperlipidemia, unspecified; I10 Essential (primary) hypertension; F17.210 Nicotine dependence, cigarettes, uncomplicated; Z79.899 Other long term (current) drug therapy
CPT/HCPCS: G0463; 73130; 96372; 99202

== ENCOUNTER → 2021-02-07 10:07 | Outpatient (CLI) | payer MEDICARE, MEDICAID, SELFPAY ==
--- NOTE | 2021-02-07 10:13 | XR_ITS ---
PROCEDURE: XR KNEE RT 4V CLINICAL INDICATION: RT knee pain COMPARISON: CR XR KNEE RT 4V from 12/08/2019 CR XR KNEE RT 3V from 10/20/2020 FINDINGS: No fracture or dislocation. No lytic or blastic change. There is normal mineralization. There is mild joint space narrowing medially. Small suprapatellar effusion suspected. Other findings:None. IMPRESSION: Minimal osteoarthritic change medial compartment Dictated by: Romario Vidal MD 02/07/2021 10:52 Romario Vidal MD in [place] 02/07/2021 10:52
== END ==
PROVIDERS: PCP Nurse Practitioner Family; Visit Provider Orthopaedic Surgery
DX: M25.561 Pain in right knee (principal)
CPT/HCPCS: 73564

== ENCOUNTER → 2021-03-16 09:40 | Outpatient (CLI) | payer MEDICARE, MEDICAID, SELFPAY | PROVIDERS: PCP Nurse Practitioner Family; Visit Provider Internal Medicine Pulmonary Disease | DX: R06.00 Dyspnea, unspecified (principal) | CPT/HCPCS: 94060; 94618; 94726; 94729 ==

== ENCOUNTER 2021-04-01 18:58 | Emergency (ER) | payer MEDICARE, MEDICAID, SELFPAY ==
[2021-04-01 19:20] VITALS: BP 124/54; PULSE 85; RESP 24; TEMP 37; O2SAT 94; BMI 40.6
--- NOTE | 2021-04-01 19:30 | HMH.EDUTC ---
[facility] [place]ression: Asthma exacerbation Qualifiers: Asthma severity: unspecified severity Asthma persistence: unspecified Qualified Code(s): J45.901 - Unspecified asthma with (acute) exacerbation Pharyngitis Qualifiers: Pharyngitis/tonsillitis etiology: unspecified etiology Qualified Code(s): J02.9 - Acute pharyngitis, unspecified Disposition: Home, Self-Care Condition on Discharge: Good Instructions: DI for Asthma -- Adult, DI for Acute Bronchitis Additional Instructions: Drink plenty of fluids. Take tylenol or ibuprofen for pain or fever. Take the medications as directed. Follow up with your regular doctor. GO TO THE ER FOR ANY WORSENING SYMPTOMS Don't start the oral steroids until tomorrow, since you had the shot here today. The cough medication (promethazine dm) will make you drowsy, so don't drive or operate heavy machinery after taking it. Prescriptions: Promethazine/Dextromethorphan [Promethazine-Dm Syrup] 5 ml PO Q6HP PRN #240 syrup PRN Reason: Cough Transmission Status: Received by [facility] Amoxicillin/Potassium Clav [Augmentin 875-125 Tablet] 1 tab PO Q12H 10 Days #20 tab Transmission Status: Received by [facility] methylPREDNISolone [Medrol] 4 mg PO DIRECTED 6 Days #21 tab.ds.pk Transmission Status: Received by [facility] Referrals: Dio Albarado APRN [Primary Care Provider] - Time of Disposition: 19:48 Medical Decision Making - Medical Records Medical records reviewed: No: I reviewed the patient's medical records. - Jonathan Inquiry Pt receiving controlled substance: No Vital Signs: 04/01/21 19:20 04/01/21 20:02 Temperature 98.6 F 98 F Temperature Source Oral Pulse Rate 85 Pulse Rate [Right] 85 Respiratory Rate 24 20 Blood Pressure 000/00 L Blood Pressure [Right Arm] 124/54 L Blood Pressure Mean [Right Arm] 77 02 Sat by Pulse Oximetry 94 L Oxygen Delivery Method Room Air Room Air - Lab Data Lab results reviewed: Yes: I reviewed the patient's lab results. Orders (Tests/Meds): ED MEDICATIONS Discontinued Medications Generic Name Dose Route Start Last Admin Trade Name Freq PRN Reason Stop Dose Admin Ceftriaxone Sodium 1 gm 04/01/21 19:44 04/01/21 20:02 Ceftriaxone 1gm Vial IM 04/01/21 19:45 1 gm ONCE ONE Administration Protocol Lidocaine HCl 0 ml 04/01/21 19:44 04/01/21 20:01 Lidocaine 1% 5ml Pf Vial IM 04/01/21 19:45 2.5 ml ONCE ONE Administration Methylprednisolone Sodium Succinate 125 mg 04/01/21 19:44 04/01/21 20:01 Methylprednisolone Sod Succ 125mg Vial IM 04/01/21 19:45 125 mg ONCE ONE Administration [facility] [place] - General Stated complaint: cough,sore throat,SOB Time Seen by Provider: 04/01/21 19:30 Mode of Arrival: Ambulatory Source of Information: Patient Limitations: No Limitations Description of Symptoms (Recalled from Triage Doc. by RN): pt c/o soa, productive cough with green sputum, and a sore throat. pt states he has asthma and his inhaler has helped some. HEENT Symptoms (Recalled from RN notes): Yes (sore throat) Resp Symptoms (Recalled from RN notes): Yes (soa and productive cough with green sputum) Skin Symptoms (Recalled from RN notes): No MS Symptoms (Recalled from RN notes): No Functional Status (Recalled from RN notes): na - History of Present Illness Provider Complaint: He states that for the past 2 days he has been having a worsening cough and chest congestion. - Related Data Home Medications Medication Instructions Recorded Confirmed Famotidine [Acid Grants Manager] 20 mg PO DAILY 11/30/20 02/16/21 Isosorbide Mononitrate [Imdur 60mg 30 mg PO DAILY 11/30/20 02/16/21 ER tablet] Fluticasone/Vilanterol [Breo 1 inh INHALATION DAILY 01/17/21 02/16/21 Ellipta] Spironolactone 50 mg PO BID 01/17/21 02/16/21 Varenicline Tartrate [Chantix See Rx Instructions PO PER PKG DIR 01/17/21 02/16/21 Starting Month Box] mary
[2021-04-01 20:02] VITALS: BP 000/00; PULSE 85; RESP 20; TEMP 36.6; O2SAT 95
[2021-04-02 10:53] LABS: UTC Strep Screen (Rapid) Negative (Negative)
== END 2021-04-01 20:05 | disposition home or self-care (01) ==
PROVIDERS: Emergency Provider Nurse Practitioner Family; PCP Nurse Practitioner Family
DX: J45.901 Unspecified asthma with (acute) exacerbation (principal); J02.9 Acute pharyngitis, unspecified; F41.8 Other specified anxiety disorders; I10 Essential (primary) hypertension; E78.5 Hyperlipidemia, unspecified; K21.9 Gastro-esophageal reflux disease without esophagitis; F17.210 Nicotine dependence, cigarettes, uncomplicated; Z79.899 Other long term (current) drug therapy
CPT/HCPCS: G0463; 87880; 96372; 99202

== ENCOUNTER → 2021-04-20 10:51 | Outpatient (CLI) | payer MEDICARE, MEDICAID, SELFPAY ==
[2021-04-20 11:25] LABS: Basophils # 0.1 K/mm3 (0-0.2); Basophils % 0.8 % (0.1-2.0); Eosinophils # 0.2 K/mm3 (0.0-0.4); Eosinophils % 2.8 % (0.1-12.0); Hematocrit 38.5 % (42.0-52.0); Hemoglobin 13.6 g/dL (14.1-18.0); Lymphocytes % 23.9 % (10-50); Mean Corpuscular HGB Conc 35.3 g/dL (31.8-35.4); Mean Corpuscular Hemoglobin 31.6 pg (27.0-31.2); Mean Corpuscular Volume 89.5 fl (80-94); Mean Platelet Volume 7.2 fl (7.4-10.4); Monocytes # 0.6 K/mm3 (0.1-1.0); Monocytes % 6.7 % (1.7-9.3); Neutrophils # 5.4 K/mm3 (1.8-7.8); Neutrophils % 65.8 % (37.0-80.0); Platelet Count 253 K/mm3 (142-424); Red Cell Distribution Width 14.4 % (11.5-17.5); White Blood Count 8.2 K/mm3 (4.8-10.8)
[2021-04-20 11:43] LABS: Alanine Aminotransferase 22 U/L (12-78); Albumin Level 4.1 g/dl (3.5-5.0); Albumin/Globulin Ratio 1.6 (1.1-1.8); Alkaline Phosphatase 72 U/L (38-126); Anion Gap 13.5 mEq/L (5-15); Aspartate Amino Transferase 20 U/L (17-59); Bilirubin,Total 0.5 mg/dl (0.2-1.3); Blood Urea Nitrogen 10 mg/dl (9-20); Calcium 9.1 mg/dl (8.4-10.2); Carbon Dioxide 21 mmol/L (22.0-30.0); Chloride 109 mmol/L (98-107); Chol/HDL Ratio 5.2 (1-3.5); Cholesterol 191 mg/dl (140-200); Estimated Glomerular Filt Rate 72 ml/min (>60); GFR (African American) 87 ML/MIN (>60); Globulin 2.6 g/dL (1.3-3.2); Glucose 105 mg/dl (74-100); HDL Cholesterol 37 mg/dl (40-60); Potassium 4.5 mmoL/L (3.5-5.1); Sodium 139 mmol/L (136-145); Total Protein,Serum 6.7 g/dl (6.3-8.2); Triglycerides 126 mg/dl (30-150); VLDL Cholesterol 25 mg/dL (0-40)
[2021-04-20 11:53] LABS: NT Pro Brain Natriuretic Pep. 64.5 pg/mL (0-125)
[2021-04-20 12:00] LABS: 25-OH Vitamin D, Total 47.5 ng/mL (30-100)
[2021-04-20 12:01] LABS: T4 (Thyroxine) 8.8 ug/dl (5.53-11.0)
[2021-04-20 12:15] LABS: Thyroid Stimulating Hormone 1.34 uIU/mL (0.465-4.68)
== END ==
PROVIDERS: Physician Assistant; Visit Provider Nurse Practitioner Family
DX: B94.8 Sequelae of other specified infectious and parasitic diseases (principal); E78.5 Hyperlipidemia, unspecified; R06.00 Dyspnea, unspecified; R07.89 Other chest pain; E55.9 Vitamin D deficiency, unspecified; E66.01 Morbid (severe) obesity due to excess calories; G47.33 Obstructive sleep apnea (adult) (pediatric); I25.10 Atherosclerotic heart disease of native coronary artery without angina pectoris; I50.9 Heart failure, unspecified; J44.9 Chronic obstructive pulmonary disease, unspecified; R60.9 Edema, unspecified; Z68.30 Body mass index [BMI] 30.0-30.9, adult; Z72.0 Tobacco use; I11.0 Hypertensive heart disease with heart failure
CPT/HCPCS: 36415; 80053; 80061; 82306; 83880; 84436; 84443; 85025

== ENCOUNTER → 2021-04-21 15:08 | Outpatient (CLI) | payer MEDICARE, MEDICAID, SELFPAY | PROVIDERS: PCP Nurse Practitioner Family; Visit Provider Internal Medicine Pulmonary Disease | DX: R06.00 Dyspnea, unspecified (principal) | CPT/HCPCS: 94070; 95070; J7674 ==

== ENCOUNTER 2021-04-29 07:47 | Emergency (ER) | payer MEDICARE, MEDICAID, SELFPAY ==
[2021-04-29 07:48] VITALS: BP 115/79; PULSE 76; RESP 18; TEMP 36.8; O2SAT 98; BMI 43.2
--- NOTE | 2021-04-29 08:11 | XR_ITS ---
PROCEDURE: XR ANKLE LT MIN 3V CLINICAL INDICATION: Left ankle pain/swelling COMPARISON: No exams were available for comparison FINDINGS: No acute fractures or dislocations. Bone density is normal. The ankle mortise is congruent and the lateral clear space is preserved. The soft tissues are unremarkable. IMPRESSION: No acute findings. Dictated by: Huyen Fletcher 04/29/2021 08:43 Huyen Fletcher in [place] 04/29/2021 08:43
--- NOTE | 2021-04-29 08:25 | HMH.EDEXTP ---
ED Disposition Clinical Impression: Ankle sprain and strain Disposition: Home, Self-Care Condition on Discharge: Good Instructions: Sprain Prescriptions: Ibuprofen [Ibuprofen 800mg Tablet] 800 mg PO TIDP PRN #20 tab PRN Reason: Moderate Pain Transmission Status: Pending to [id number] Referrals: Dio Albarado APRN [Primary Care Provider] - - Critical Care Critical Care Time: No Attestation: On 04/29/21, the high probability of a clinically significant, sudden or life threatening deterioration of the following system(s) required my full and direct attention, intervention and personal management. The time I documented below is in addition to time spent performing reported procedures but includes the following listed in this critical care notation. Medical Decision Making - Medical Records Medical records reviewed: Yes: I reviewed the patient's medical records. - Jonathan Inquiry Pt receiving controlled substance: No Vital Signs: 04/29/21 07:48 04/29/21 08:30 Temperature 98.2 F Temperature Source Oral Pulse Rate 71 Pulse Rate [Right] 76 Respiratory Rate 18 Blood Pressure 124/77 Blood Pressure [Right Arm] 115/79 Blood Pressure Mean 91 Blood Pressure Mean [Right Arm] 91 02 Sat by Pulse Oximetry 98 94 L Oxygen Delivery Method Room Air Orders (Tests/Meds): ED MEDICATIONS Discontinued Medications Generic Name Dose Route Start Last Admin Trade Name Freq PRN Reason Stop Dose Admin Ibuprofen 800 mg 04/29/21 08:14 04/29/21 08:18 Ibuprofen 400 Mg Tablet PO 04/29/21 08:15 800 mg ONCE ONE Administration - Radiology Data #1 Image(s): Ankle Image Reviewed: Yes I reviewed the patient's radiology results, Yes I reviewed the patient's radiology image, Yes I have reviewed radiologist's interpretation Preliminary Findings: Normal/NAD, No Fracture Seen - Reevaluation(s) Time: 08:49 Reevaluation #1: On reevaluation, patient's pain is improved. No fracture. He is ambulatory. Symptoms consistent with a sprain. Patient is to follow-up with PCP in 48 hours. Given strict return precautions. Verbalized understanding. Medical Decision Narrative: 46-year-old male presented with some left ankle pain. Seems like the symptoms started when the patient stepped awkwardly on his foot in the middle of the night. There is no obvious deformity. Imaging obtained. Extremity Problem HPI - General Chief complaint: Extremity Injury, Lower Stated complaint: lt ankle pain Time Seen by Provider: 04/29/21 08:00 Mode of Arrival: Family Vehicle Limitations: No Limitations Description of Symptoms (Recalled from ER Triage Doc. by RN): Patient c/o left ankle swelling starting yesterday. Patient denies any injury recently to the ankle. Patient ambulatory in ED triage. Upon assessment, patient has full ROM distal to left ankle and 2+ palpable dorsal pedal pulse with capillary refill less than two seconds. No redness noted on left lower extremity. - History of Present Illness HPI Narrative: 46-year-old male presented to the emergency department with some left ankle pain. Patient states that the pain started last night. He got up in all night to go the bathroom states that he stepped awkwardly on his foot. When he woke up this morning his ankle pain was persistent. Is located in the lateral aspect of the left ankle. He denies any direct trauma as of recently to the ankle. He is not had any fevers or chills. No difficulty breathing, cough or hemoptysis. Patient has a history of ankle pain and swelling in the past. Denies any fevers or chills. Chest pain. No abdominal pain or vomiting. No diarrhea. No headache or change in vision. No focal weakness. - Related Data Home Medications Medication Instructions Recorded Confirmed Isosorbide Mononitrate [Imdur 60mg 30 mg PO DAILY 11/30/20 04/27/21 ER tablet] Spironolactone 50 mg PO BID 01/17/21 04/27/21 furosemide 40
[2021-04-29 08:30] VITALS: BP 124/77; PULSE 71; O2SAT 94
[2021-04-29 09:04] VITALS: BP 116/68; PULSE 68; RESP 18; TEMP 36.8; O2SAT 98
== END 2021-04-29 09:04 | disposition home or self-care (01) ==
PROVIDERS: Emergency Provider Emergency Medicine; PCP Nurse Practitioner Family
DX: S93.402A Sprain of unspecified ligament of left ankle, initial encounter (principal); X50.1XXA Overexertion from prolonged static or awkward postures, initial encounter; Y92.019 Unspecified place in single-family (private) house as the place of occurrence of the external cause; K21.9 Gastro-esophageal reflux disease without esophagitis; F41.8 Other specified anxiety disorders; G43.709 Chronic migraine without aura, not intractable, without status migrainosus; I10 Essential (primary) hypertension; E78.5 Hyperlipidemia, unspecified; F17.210 Nicotine dependence, cigarettes, uncomplicated; Z79.899 Other long term (current) drug therapy
CPT/HCPCS: 73610; 99282

== ENCOUNTER → 2021-05-10 13:31 | Outpatient (CLI) | payer MEDICARE, MEDICAID, SELFPAY | PROVIDERS: PCP Emergency Medicine; Visit Provider Specialist | DX: G47.10 Hypersomnia, unspecified (principal); G47.33 Obstructive sleep apnea (adult) (pediatric) | CPT/HCPCS: G0399 ==

== ENCOUNTER 2021-05-14 15:36 | Emergency (ER) | payer MEDICARE, MEDICAID, SELFPAY ==
[2021-05-14] VITALS (8 sets, daily range): BP systolic 93–108; BP diastolic 48–64; PULSE 72–80; RESP 16–21; TEMP 37.2–37.4; O2SAT 91–95; BMI 43.2
--- NOTE | 2021-05-14 15:48 | ECG_ITS ---
APPROVED REPORT Exam: Resting ECG HR:79 bpm ECG Measurements Heart Rate 79 AXES [place] 188 P 45 QRSd 84 QRS 9 QT 402 T 57 QTc 460 Conclusion Normal sinus rhythm Inferior infarct, old changes Late R wave progression, previously noted Abnormal ECG Electronically signed by : Carlos Noland MD 05/17/2021 21:08:02
--- NOTE | 2021-05-14 15:54 | HMH.EDDIZZ ---
ED Disposition Clinical Impression: Dizziness on standing Abrasion of knee, left Qualifiers: Encounter type: initial encounter Qualified Code(s): S80.212A - Abrasion, left knee, initial encounter Pneumonia Qualifiers: Pneumonia type: due to unspecified organism Laterality: right Lung location: lower lobe of lung Qualified Code(s): J18.9 - Pneumonia, unspecified organism Disposition: Home, Self-Care Condition on Discharge: Fair Instructions: Pneumonia-Adult, Dizziness, Nonvertigo Additional Instructions: Stop taking your diuretics (water pills) for the next 2 days. Also stopped taking one of your blood pressure medications for at least the next 2 days. Please take all medications as prescribed otherwise including the antibiotic I have prescribed for you today. Return to the emergency department if you feel worse in any way. Follow-up with your primary care doctor in the next 3 days. Prescriptions: Azithromycin 250 mg PO DAILY 4 Days #4 tab Transmission Status: Received by [facility] Referrals: Dio Albarado APRN [Primary Care Provider] - 3 days - Critical Care Critical Care Time: No Attestation: On 05/14/21, the high probability of a clinically significant, sudden or life threatening deterioration of the following system(s) required my full and direct attention, intervention and personal management. The time I documented below is in addition to time spent performing reported procedures but includes the following listed in this critical care notation. Medical Decision Making - Jonathan Inquiry Pt receiving controlled substance: No Vital Signs: 05/14/21 15:37 05/14/21 16:02 05/14/21 16:15 Temperature 99.3 F Temperature Source Oral Pulse Rate 78 78 Pulse Rate [Right] 80 Respiratory Rate 20 18 21 Blood Pressure Blood Pressure [Right Arm] 108/64 L Blood Pressure Mean Blood Pressure Mean [Right Arm] 78 02 Sat by Pulse Oximetry 93 L 92 L 91 L Oxygen Delivery Method Room Air 05/14/21 16:26 05/14/21 16:30 05/14/21 17:00 Temperature Temperature Source Pulse Rate 77 76 78 Pulse Rate [Right] Respiratory Rate 18 16 18 Blood Pressure 95/49 L 93/50 L 103/55 L Blood Pressure [Right Arm] Blood Pressure Mean 66 67 66 Blood Pressure Mean [Right Arm] 02 Sat by Pulse Oximetry 91 L 93 L 93 L Oxygen Delivery Method Room Air 05/14/21 17:30 Temperature Temperature Source Pulse Rate 72 Pulse Rate [Right] Respiratory Rate 18 Blood Pressure 102/48 L Blood Pressure [Right Arm] Blood Pressure Mean 67 Blood Pressure Mean [Right Arm] 02 Sat by Pulse Oximetry 95 Oxygen Delivery Method - Lab Data Lab Results 05/14/21 15:55: WBC 11.3 H, RBC 4.08 L, Hgb 12.7 L, Hct 37.3 L, MCV 91.4, MCH 31.0, MCHC 34.0, RDW 14.5, Plt Count 259, MPV 7.5, Neut % (Auto) 67.0, Lymph % (Auto) 22.3, [place] % (Auto) 6.5, Eos % (Auto) 3.6, Baso % (Auto) 0.7, Neut # (Auto) 7.6, Lymph # (Auto) 2.5, [place] # (Auto) 0.7, Eos # (Auto) 0.4, Baso # (Auto) 0.1 05/14/21 15:55: Sodium 138, Potassium 4.2, Chloride 109 H, Carbon Dioxide 17 L, Anion Gap 16.2 H, BUN 10, Creatinine 1.30 H, Estimated Creat Clear 76, Estimated GFR 59, Est GFR ( Amer) 72, Glucose 96, Calcium 8.4, Total Bilirubin 0.2, AST 17, ALT 13, Alkaline Phosphatase 69, Total Protein 6.6, Albumin 3.8, Globulin 2.8, Albumin/Globulin Ratio 1.4 05/14/21 16:03: SARS-CoV-2 (PCR) Not detected, Influenza A Untype (PCR) Not detected, Influenza Type B (PCR) Not detected Result diagrams: 05/14/21 15:55 05/14/21 15:55 Orders (Tests/Meds): ED MEDICATIONS Generic Name Dose Route Start Last Admin Trade Name Freq PRN Reason Stop Dose Admin Sodium Chloride 1,000 mls @ 999 mls/hr 05/14/21 17:00 05/14/21 16:58 Sod Chlor 0.9% 1000ml Bag IV 05/14/21 18:00 999 mls/hr .Q1H1M JABARI Administration Discontinued Medications Generic Name Dose Route Start Last Admin Trade Name Freq PRN Reason Stop Dose Admin Azithromycin 500 mg
--- NOTE | 2021-05-14 16:00 | XR_ITS ---
PROCEDURE INFORMATION: Exam: XR Chest Exam date and time: 05/14/2021 4:00 PM Age: 46 years old Clinical indication: Cough; Additional info: Dyspnea, cough TECHNIQUE: Imaging protocol: XR of the chest. Views: 1 view. COMPARISON: CR XR CHEST PORTABLE 01/17/2021 10:36 PM FINDINGS: Lungs: Atelectasis and/or early infiltrative changes noted within the left lung base. Pleural spaces: Unremarkable. No pleural effusion. No pneumothorax. Heart/Mediastinum: Unremarkable. No cardiomegaly. Bones/joints: Unremarkable. IMPRESSION: Atelectasis and/or early infiltrative changes noted within the left lung base.
[2021-05-14 16:11] LABS: Coronavirus 19, PCR Not Detected (NotDetected); Influenza A, PCR Not Detected (NotDetected); Influenza B, PCR Not Detected (NotDetected)
[2021-05-14 16:15] LABS: Basophils # 0.1 K/mm3 (0-0.2); Basophils % 0.7 % (0.1-2.0); Eosinophils # 0.4 K/mm3 (0.0-0.4); Eosinophils % 3.6 % (0.1-12.0); Hematocrit 37.3 % (42.0-52.0); Hemoglobin 12.7 g/dL (14.1-18.0); Lymphocytes # 2.5 K/mm3 (0.7-4.5); Lymphocytes % 22.3 % (10-50); Mean Corpuscular Volume 91.4 fl (80-94); Mean Platelet Volume 7.5 fl (7.4-10.4); Monocytes # 0.7 K/mm3 (0.1-1.0); Monocytes % 6.5 % (1.7-9.3); Neutrophils # 7.6 K/mm3 (1.8-7.8); Platelet Count 259 K/mm3 (142-424); Red Blood Count 4.08 M/mm3 (4.60-6.20); Red Cell Distribution Width 14.5 % (11.5-17.5); White Blood Count 11.3 K/mm3 (4.8-10.8)
[2021-05-14 16:18] LABS: Chloride 109 mmol/L (98-107)
[2021-05-14 16:19] LABS: Potassium 4.2 mmoL/L (3.5-5.1); Sodium 138 mmol/L (136-145)
[2021-05-14 16:21] LABS: Alanine Aminotransferase 13 U/L (12-78); Alkaline Phosphatase 69 U/L (38-126); Aspartate Amino Transferase 17 U/L (17-59); Bilirubin,Total 0.2 mg/dl (0.2-1.3); Blood Urea Nitrogen 10 mg/dl (9-20); Carbon Dioxide 17 mmol/L (22.0-30.0); Creatinine Clearance Estimated 76 mL/min (50-200); Estimated Glomerular Filt Rate 59 ml/min (>60); GFR (African American) 72 ML/MIN (>60)
[2021-05-14 16:22] LABS: Albumin Level 3.8 g/dl (3.5-5.0); Albumin/Globulin Ratio 1.4 (1.1-1.8); Anion Gap 16.2 mEq/L (5-15); Calcium 8.4 mg/dl (8.4-10.2); Globulin 2.8 g/dL (1.3-3.2); Glucose 96 mg/dl (74-100); Total Protein,Serum 6.6 g/dl (6.3-8.2)
--- NOTE | 2021-05-14 17:14 | PC.NURSE ---
wound care provided to left knee.
--- NOTE | 2021-05-14 17:45 | PC.NURSE ---
Pt ambulatory around room, denies dizziness. States i'm feeling much better, when can i go home? Dr. Hui notified.
== END 2021-05-14 18:07 | disposition home or self-care (01) ==
PROVIDERS: Emergency Provider Emergency Medicine; PCP Nurse Practitioner Family
DX: J18.9 Pneumonia, unspecified organism (principal); S80.212A Abrasion, left knee, initial encounter; W18.39XA Other fall on same level, initial encounter; Y92.019 Unspecified place in single-family (private) house as the place of occurrence of the external cause; Z23 Encounter for immunization; Z20.822 Contact with and (suspected) exposure to COVID-19; F41.8 Other specified anxiety disorders; K21.9 Gastro-esophageal reflux disease without esophagitis; E78.5 Hyperlipidemia, unspecified; I10 Essential (primary) hypertension; F17.210 Nicotine dependence, cigarettes, uncomplicated; Z79.899 Other long term (current) drug therapy
CPT/HCPCS: 71045; 80053; 85025; 90471; 90715; 93005; 96365; 99283; U0003

== ENCOUNTER 2021-06-14 17:30 | Emergency (ER) | payer MEDICARE, MEDICAID, SELFPAY ==
[2021-06-14 17:30] VITALS: BP 100/71; PULSE 77; RESP 18; TEMP 36.8; O2SAT 94; BMI 43.2
--- NOTE | 2021-06-14 17:30 | ECG_ITS ---
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
--- NOTE | 2021-06-14 17:31 | HMH.EDCP ---
ED Disposition Clinical Impression: Chest pain, atypical Disposition: Home, Self-Care Condition on Discharge: Good Instructions: DI for Atypical Chest Pain Additional Instructions: Follow-up with your primary care doctor in a few days even if you feel well. I highly recommend that you discuss the possibility of doing a stress test with your doctor. Please return immediately to the emergency department if you feel worse in any way. You may take [id number] Tylenol or ibuprofen for your pain. Referrals: Dio Albarado APRN [Primary Care Provider] - - Critical Care Critical Care Time: No Attestation: On , the high probability of a clinically significant, sudden or life threatening deterioration of the following system(s) required my full and direct attention, intervention and personal management. The time I documented below is in addition to time spent performing reported procedures but includes the following listed in this critical care notation. Medical Decision Making - Medical Records Medical records reviewed: Yes: I reviewed the patient's medical records. - Jonathan Inquiry Pt receiving controlled substance: No - Lab Data Lab results reviewed: Yes: I reviewed the patient's lab results. Lab Results 06/14/21 17:35: WBC 9.0, RBC 3.93 L, Hgb 12.3 L, Hct 37.4 L, MCV 95.1 H, MCH 31.4 H, MCHC 33.0, RDW 14.0, Plt Count 255, MPV 7.9, Neut % (Auto) 58.6, Lymph % (Auto) 29.6, [place] % (Auto) 6.4, Eos % (Auto) 4.6, Baso % (Auto) 0.7, Neut # (Auto) 5.3, Lymph # (Auto) 2.7, [place] # (Auto) 0.6, Eos # (Auto) 0.4, Baso # (Auto) 0.1 06/14/21 17:35: Sodium 139, Potassium 4.2, Chloride 108 H, Carbon Dioxide 19 L, Anion Gap 16.2 H, BUN 12, Creatinine 1.20, Estimated GFR 65, Est GFR ( Amer) 79, Glucose 97, Calcium 8.7, Total Bilirubin 0.2, AST 26, ALT 16, Alkaline Phosphatase 71, Troponin I < 0.01, NT-Pro-B Natriuret Pep 73.7, Total Protein 6.7, Albumin 3.7, Globulin 3.0, Albumin/Globulin Ratio 1.2 Result diagrams: 06/14/21 17:35 06/14/21 17:35 Orders (Tests/Meds): ORDERS Category Date Time Status Troponin I Q3H Lab 06/14/21 20:45 Ordered ECG Request by /Page Stat Y 06/14/21 17:36 Ordered - ECG Data Tracing #1 I reviewed this ECG and interpreted as documented below: The EKG was done at 1730. It shows a normal sinus rhythm with a ventricular rate of 75 bpm there are Q waves in 2 3 and aVF as well as V3. There is no acute ischemia and there are no dysrhythmias the intervals are normal. - JAY Score for Non-Stemi Age of Patient: 40-49 years old Heart Rate: 70-89 bpm Systolic Blood Pressure: 100-119 mmHg Serum Creatinine: 1.20-1.59 mg/dl CHF [place] Class: I-No CHF Other Risk Factors: None Non-Stemi Risk Score: 87 Medical Decision Narrative: Work-up in the emergency department reveals a low risk jay score. The patient's chest pain is reproducible with palpation of the chest wall. His chest x-ray does not show any acute disease. His troponin is undetectable. His EKG does not show any acute ischemia. Patient's pain is almost resolved now. The patient has no signs or symptoms of pulmonary embolus. I feel that the patient can be safely discharged home with instructions to follow-up with his primary care physician in the next 2 to 3 days. Chest Pain HPI - General Chief Complaint: Chest Pain Stated Complaint: chest pain Time Seen by Provider: 06/14/21 17:32 Mode of Arrival: EMS Source of Information: Patient Limitations: No Limitations - History of Present Illness HPI narrative: The patient presents to the emergency department by EMS for chest pain that started approximately 30 minutes ago while the patient was walking around without exerting himself heavily. The pain is left-sided and is reproducible with palpation. The patient denies having had a myocardial infarction in the past. The patient denies pleuritic chest pain. Denies diaphoresis or nausea. He received aspirin and nitroglyceri
--- NOTE | 2021-06-14 17:36 | XR_ITS ---
PROCEDURE INFORMATION: Exam: XR Chest Exam date and time: 06/14/2021 5:36 PM Age: 46 years old Clinical indication: Chest pressure and left-sided; Patient HX: Left sided chest pain; Non-smoker; Obestiy; Additional info: Cp TECHNIQUE: Imaging protocol: XR of the chest. Views: 1 view. COMPARISON: CR XR CHEST PORTABLE 05/14/2021 4:08 PM FINDINGS: Lungs: Mild left basilar atelectasis. No acute airspace consolidation. Pleural spaces: Unremarkable. No pleural effusion. No pneumothorax. Heart/Mediastinum: Unremarkable. No cardiomegaly. Bones/joints: Unremarkable. IMPRESSION: Mild left basilar atelectasis.
[2021-06-14 17:44] LABS: Basophils # 0.1 K/mm3 (0-0.2); Basophils % 0.7 % (0.1-2.0); Eosinophils # 0.4 K/mm3 (0.0-0.4); Eosinophils % 4.6 % (0.1-12.0); Hematocrit 37.4 % (42.0-52.0); Hemoglobin 12.3 g/dL (14.1-18.0); Lymphocytes # 2.7 K/mm3 (0.7-4.5); Lymphocytes % 29.6 % (10-50); Mean Corpuscular Hemoglobin 31.4 pg (27.0-31.2); Mean Corpuscular Volume 95.1 fl (80-94); Mean Platelet Volume 7.9 fl (7.4-10.4); Monocytes # 0.6 K/mm3 (0.1-1.0); Monocytes % 6.4 % (1.7-9.3); Neutrophils # 5.3 K/mm3 (1.8-7.8); Neutrophils % 58.6 % (37.0-80.0); Platelet Count 255 K/mm3 (142-424); Red Blood Count 3.93 M/mm3 (4.60-6.20)
[2021-06-14 17:58] LABS: Alanine Aminotransferase 16 U/L (12-78); Albumin Level 3.7 g/dl (3.5-5.0); Albumin/Globulin Ratio 1.2 (1.1-1.8); Alkaline Phosphatase 71 U/L (38-126); Anion Gap 16.2 mEq/L (5-15); Aspartate Amino Transferase 26 U/L (17-59); Bilirubin,Total 0.2 mg/dl (0.2-1.3); Blood Urea Nitrogen 12 mg/dl (9-20); Calcium 8.7 mg/dl (8.4-10.2); Carbon Dioxide 19 mmol/L (22.0-30.0); Chloride 108 mmol/L (98-107); Estimated Glomerular Filt Rate 65 ml/min (>60); GFR (African American) 79 ML/MIN (>60); Glucose 97 mg/dl (74-100); Potassium 4.2 mmoL/L (3.5-5.1); Sodium 139 mmol/L (136-145); Total Protein,Serum 6.7 g/dl (6.3-8.2)
[2021-06-14 18:10] LABS: NT Pro Brain Natriuretic Pep. 73.7 pg/mL (0-125)
[2021-06-14 18:14] LABS: Troponin I < 0.01 ng/ml (0.00-0.034)
[2021-06-14 19:07] VITALS: BP 107/64; PULSE 64; RESP 15; TEMP 36.7; O2SAT 96
== END 2021-06-14 19:09 | disposition home or self-care (01) ==
PROVIDERS: Emergency Provider Emergency Medicine; PCP Nurse Practitioner Family
DX: R07.89 Other chest pain (principal); K21.9 Gastro-esophageal reflux disease without esophagitis; R06.02 Shortness of breath; E78.5 Hyperlipidemia, unspecified; I10 Essential (primary) hypertension; F41.8 Other specified anxiety disorders; F17.210 Nicotine dependence, cigarettes, uncomplicated; Z79.899 Other long term (current) drug therapy
CPT/HCPCS: 71045; 80053; 83880; 84484; 85025; 93005; 99282

== ENCOUNTER 2021-07-01 22:02 | Emergency (ER) | payer MEDICARE, MEDICAID, SELFPAY ==
--- NOTE | 2021-07-01 21:58 | ECG_ITS ---
APPROVED REPORT Exam: Resting ECG HR:70 bpm ECG Measurements Heart Rate 70 AXES [place] 194 P 69 QRSd 86 QRS 54 QT 428 T 59 QTc 462 Conclusion Normal sinus rhythm Old inferior changes Abnormal ECG Electronically signed by : Carlos Noland MD 07/03/2021 20:55:33
[2021-07-01 22:03] VITALS: BP 127/80; PULSE 71; RESP 22; TEMP 37.1; O2SAT 94; BMI 42.0
--- NOTE | 2021-07-01 22:09 | XR_ITS ---
PROCEDURE INFORMATION: Exam: XR Chest Exam date and time: 07/01/2021 10:09 PM Age: 46 years old Clinical indication: Pain; Chest pressure; Additional info: Chest pain TECHNIQUE: Imaging protocol: XR of the chest. Views: 2 views. COMPARISON: CR XR CHEST PORTABLE 06/14/2021 5:40 PM FINDINGS: Lungs: Faint left basilar opacities Pleural spaces: Unremarkable. No pleural effusion. No pneumothorax. Heart/Mediastinum: Unremarkable. No cardiomegaly. Bones/joints: Unremarkable. IMPRESSION: Faint left basilar opacities may represent pneumonia
--- NOTE | 2021-07-01 22:25 | HMH.EDCP ---
ED Disposition Clinical Impression: Stable angina Disposition: Home, Self-Care Condition on Discharge: Good Instructions: DI for Chest Pain Additional Instructions: see pcp and card for follow up and resume meds Referrals: Dio Albarado APRN [Primary Care Provider] - - Critical Care Critical Care Time: No Attestation: On 07/01/21, the high probability of a clinically significant, sudden or life threatening deterioration of the following system(s) required my full and direct attention, intervention and personal management. The time I documented below is in addition to time spent performing reported procedures but includes the following listed in this critical care notation. Medical Decision Making - Medical Records Medical records reviewed: Yes: I reviewed the patient's medical records. - Jonathan Inquiry Pt receiving controlled substance: No Vital Signs: 07/01/21 22:03 Temperature 98.7 F Temperature Source Oral Pulse Rate [Right Brachial] 71 Respiratory Rate 22 Blood Pressure [Right Arm] 127/80 Blood Pressure Mean [Right Arm] 95 Blood Pressure Source [Right Arm] Automatic Cuff Blood Pressure Position [Right Arm] Sitting 02 Sat by Pulse Oximetry 94 L Oxygen Delivery Method Room Air - Lab Data Lab results reviewed: Yes: I reviewed the patient's lab results. Lab Results 07/01/21 22:04: WBC 9.7, RBC 3.91 L, Hgb 12.2 L, Hct 37.3 L, MCV 95.3 H, MCH 31.2, MCHC 32.7, RDW 14.4, Plt Count 263, MPV 8.2, Neut % (Auto) 59.9, Lymph % (Auto) 27.7, [place] % (Auto) 7.1, Eos % (Auto) 4.5, Baso % (Auto) 0.8, Neut # (Auto) 5.8, Lymph # (Auto) 2.7, [place] # (Auto) 0.7, Eos # (Auto) 0.4, Baso # (Auto) 0.1 07/01/21 22:04: Sodium 139, Potassium 3.8, Chloride 108 H, Carbon Dioxide 21 L, Anion Gap 13.8, BUN 12, Creatinine 1.20, Estimated Creat Clear 82, Estimated GFR 65, Est GFR ( Amer) 79, Glucose 102 H, Calcium 9.0, Total Bilirubin < 0.1 L, Conjugated Bilirubin 0.0, Unconjugated Bilirubin 0.1, AST 33, ALT 18, Alkaline Phosphatase 59, Troponin I < 0.01, C-Reactive Protein 6.9 H, Total Protein 6.7, Albumin 3.8 Result diagrams: 07/01/21 22:04 07/01/21 22:04 Orders (Tests/Meds): ORDERS Category Date Time Status Basic Metabolic Panel Stat Lab 07/01/21 22:04 Results C-Reactive Protein Stat Lab 07/01/21 22:04 Results Erythrocyte Sedimentation Rate Stat Lab 07/01/21 22:04 Received Liver Panel Stat Lab 07/01/21 22:04 Results Troponin I Q3H Lab 07/02/21 01:15 Ordered Troponin I Q3H Lab 07/02/21 04:15 Ordered Troponin I Stat Lab 07/01/21 22:04 Results - ECG Data Tracing #1 Normal Sinus Rhythm: Yes Ischemic changes: non-specific ST-T wave changes Medical Decision Narrative: stable exam and labs at this time Chest Pain HPI - General Chief Complaint: Chest Pain Stated Complaint: chest pain Time Seen by Provider: 07/01/21 22:20 Mode of Arrival: Family Vehicle Source of Information: Patient, Medical Record Limitations: No Limitations Description of Symptoms (Recalled from ER Triage Doc. by RN): patient states he has been having left upper wall chest pain that radiates into left arm and causes his hand to intermittently tingle. states this has been ongoing for two days. mild dyspnea. no other significant complaint. - History of Present Illness HPI narrative: pt with hx of heart disease and followed by card - has ongoing chest pain similar to prev - he reports compliant with meds - MD complaint: chest pain indicative of cardiac Onset (ago): hour(s) Duration: intermittent Activity at onset: during rest Pain location: left chest Risk Factors for CAD: Hypertension, Family Hx of CAD, Smoking Treatments prior to or on arrival for Cardiac Chest Pain: none - ZACK Score for Non-Stemi Age of Patient: 40-49 years old Heart Rate: 70-89 bpm Systolic Blood Pressure: 120-139 mmhg Serum Creatinine: 1.20-1.59 mg/dl CHF [place] Class: I-No CHF Other Risk Factors: None Non-Stemi Risk Score: 78 - Rel
[2021-07-01 22:31] LABS: Basophils # 0.1 K/mm3 (0-0.2); Basophils % 0.8 % (0.1-2.0); Eosinophils # 0.4 K/mm3 (0.0-0.4); Eosinophils % 4.5 % (0.1-12.0); Hematocrit 37.3 % (42.0-52.0); Hemoglobin 12.2 g/dL (14.1-18.0); Lymphocytes # 2.7 K/mm3 (0.7-4.5); Lymphocytes % 27.7 % (10-50); Mean Corpuscular HGB Conc 32.7 g/dL (31.8-35.4); Mean Corpuscular Hemoglobin 31.2 pg (27.0-31.2); Mean Corpuscular Volume 95.3 fl (80-94); Mean Platelet Volume 8.2 fl (7.4-10.4); Monocytes # 0.7 K/mm3 (0.1-1.0); Monocytes % 7.1 % (1.7-9.3); Neutrophils # 5.8 K/mm3 (1.8-7.8); Neutrophils % 59.9 % (37.0-80.0); Platelet Count 263 K/mm3 (142-424); Red Blood Count 3.91 M/mm3 (4.60-6.20); Red Cell Distribution Width 14.4 % (11.5-17.5); White Blood Count 9.7 K/mm3 (4.8-10.8)
[2021-07-01 22:34] LABS: Alanine Aminotransferase 18 U/L (12-78); Albumin Level 3.8 g/dl (3.5-5.0); Alkaline Phosphatase 59 U/L (38-126); Anion Gap 13.8 mEq/L (5-15); Aspartate Amino Transferase 33 U/L (17-59); Bilirubin,Unconjugated 0.1 mg/dL (0.0-1.1); Blood Urea Nitrogen 12 mg/dl (9-20); Carbon Dioxide 21 mmol/L (22.0-30.0); Chloride 108 mmol/L (98-107); Creatinine Clearance Estimated 82 mL/min (50-200); Estimated Glomerular Filt Rate 65 ml/min (>60); GFR (African American) 79 ML/MIN (>60); Glucose 102 mg/dl (74-100); Potassium 3.8 mmoL/L (3.5-5.1); Sodium 139 mmol/L (136-145); Total Protein,Serum 6.7 g/dl (6.3-8.2)
[2021-07-01 22:40] LABS: Bilirubin,Total < 0.1 mg/dl (0.2-1.3); C-Reactive Protein 6.9 mg/L (0-4)
[2021-07-01 22:52] LABS: Troponin I < 0.01 ng/ml (0.00-0.034)
[2021-07-01 22:59] LABS: Bilirubin,Indirect 0.1 mg/dL (0.0-0.9)
[2021-07-01 23:03] LABS: Erythrocyte Sedimentation Rate 23 mm/hr (0-15)
[2021-07-01 23:12] VITALS: BP 124/73; PULSE 73; RESP 18; TEMP 36.8; O2SAT 98
== END 2021-07-01 23:19 | disposition home or self-care (01) ==
PROVIDERS: Emergency Provider Emergency Medicine; PCP Nurse Practitioner Family
DX: I20.8 Other forms of angina pectoris (principal); F41.8 Other specified anxiety disorders; E78.5 Hyperlipidemia, unspecified; I10 Essential (primary) hypertension; F17.210 Nicotine dependence, cigarettes, uncomplicated; Z79.899 Other long term (current) drug therapy
CPT/HCPCS: 71046; 80048; 80076; 84484; 85025; 85651; 86140; 93005; 99282

== ENCOUNTER → 2021-07-27 11:01 | Outpatient (CLI) | payer MEDICARE, MEDICAID, SELFPAY | PROVIDERS: PCP Nurse Practitioner Family; Visit Provider Specialist | DX: G47.33 Obstructive sleep apnea (adult) (pediatric) (principal) | CPT/HCPCS: 94762 ==

== ENCOUNTER 2021-08-28 16:39 | Emergency (ER) | payer MEDICARE, MEDICAID, SELFPAY ==
--- NOTE | 2021-08-28 17:43 | XR_ITS ---
PROCEDURE INFORMATION: Exam: XR Left Knee Exam date and time: 08/28/2021 5:43 PM Age: 46 years old Clinical indication: Injury or trauma; Fall; Blunt trauma; Bilateral; Injury date: 08/28/21; Injury details: Fell hitting both knees TECHNIQUE: Imaging protocol: XR Left knee. Views: 3 views. Total images: 3 COMPARISON: CA VENOUS DOPPLER LE LT 03/26/2020 7:09 AM FINDINGS: Bones/joints: No fracture. No blastic or lytic lesions. Small joint effusion in the suprapatellar bursa. Joint spaces are well-maintained. Soft tissues: Mild prepatellar soft tissue swelling. No periostitis or osteolysis. No foreign bodies. Other findings: Normal alignment. IMPRESSION: 1. No fracture or dislocation. 2. Small joint effusion in the suprapatellar bursa. . Mild prepatellar soft tissue swelling.
--- NOTE | 2021-08-28 17:43 | XR_ITS ---
PROCEDURE INFORMATION: Exam: XR Right Knee Exam date and time: 08/28/2021 5:43 PM Age: 46 years old Clinical indication: Injury or trauma; Fall; Blunt trauma; Bilateral; Injury date: 08/28/21; Injury details: Fell hitting both knees TECHNIQUE: Imaging protocol: XR Right knee. Views: 3 views. Total images: 3 COMPARISON: CR XR KNEE RT 4V 02/07/2021 10:16 AM FINDINGS: Bones/joints: No fracture. No blastic or lytic lesions. Moderate joint effusion distending the suprapatellar bursa. Mild joint space narrowing in the medial tibiofemoral compartment. Soft tissues: Question mild lateral soft tissue swelling. No periostitis or osteolysis. No foreign bodies. Other findings: Normal alignment. IMPRESSION: 1. No fracture. 2. Moderate suprapatellar joint effusion and mild lateral soft tissue swelling. 3. Mild osteoarthritic joint space narrowing in the medial compartment.
[2021-08-28 17:44] VITALS: BP 118/65; PULSE 73; RESP 18; TEMP 36.4; O2SAT 92; BMI 42.8
--- NOTE | 2021-08-28 18:18 | HMH.EDUTC ---
[facility] [place] Disposition Clinical Impression: Fall Qualifiers: Encounter type: initial encounter Qualified Code(s): W19.XXXA - Unspecified fall, initial encounter Bilateral knee pain Qualifiers: Chronicity: acute Qualified Code(s): M25.561 - Pain in right knee Disposition: Home, Self-Care Condition on Discharge: Good Instructions: Contusion, DI for Knee Pain Additional Instructions: Rest the extremity, apply ice for 15 minutes as tolerated three or four times per day, Elevate the extremity as tolerated while you are resting. Take ibuprofen for pain. I sent in a prescription to your pharmacy. Follow up with Dr. Fletcher (orthopedics). Sometimes there can be fractures that don't show up well on the first set of x-rays. So, you should follow up if you continue to have symptoms. I put in a referral but you need to call his office and schedule an appointment. Follow up with your regular doctor. GO TO THE ER FOR ANY WORSENING SYMPTOMS Prescriptions: Ibuprofen [Ibuprofen 600mg Tablet] 600 mg PO Q6HP PRN #30 tab PRN Reason: Mild Pain Transmission Status: Received by [id number] Referrals: Dio Albarado APRN [Primary Care Provider] - Girma Carmona JR, MD [Physician] - Time of Disposition: 18:52 Medical Decision Making - Medical Records Medical records reviewed: No: I reviewed the patient's medical records. - Jonathan Inquiry Pt receiving controlled substance: No Vital Signs: 08/28/21 17:44 08/28/21 18:56 Temperature 97.6 F 97.6 F Temperature Source Oral Pulse Rate 73 Pulse Rate [Right Brachial] 73 Respiratory Rate 18 18 Blood Pressure 118/65 Blood Pressure [Right Arm] 118/65 Blood Pressure Mean [Right Arm] 82 Blood Pressure Source [Right Arm] Automatic Cuff Blood Pressure Position [Right Arm] Sitting 02 Sat by Pulse Oximetry 92 L Oxygen Delivery Method Room Air Room Air - Radiology Data #1 Image(s): Knee Image Reviewed: Yes I reviewed the patient's radiology image, Yes I have reviewed radiologist's interpretation Preliminary Findings: No Fracture Seen PROCEDURE INFORMATION: Exam: XR Right Knee Exam date and time: 08/28/2021 5:43 PM Age: 46 years old Clinical indication: Injury or trauma; Fall; Blunt trauma; Bilateral; Injury date: 08/28/21; Injury details: Fell hitting both knees TECHNIQUE: Imaging protocol: XR Right knee. Views: 3 views. Total images: 3 COMPARISON: CR XR KNEE RT 4V 02/07/2021 10:16 AM FINDINGS: Bones/joints: No fracture. No blastic or lytic lesions. Moderate joint effusion distending the suprapatellar bursa. Mild joint space narrowing in the medial tibiofemoral compartment. Soft tissues: Question mild lateral soft tissue swelling. No periostitis or osteolysis. No foreign bodies. Other findings: Normal alignment. IMPRESSION: 1. No fracture. 2. Moderate suprapatellar joint effusion and mild lateral soft tissue swelling. 3. Mild osteoarthritic joint space narrowing in the medial compartment. #2 Image(s): Knee Image Reviewed: Yes I reviewed the patient's radiology image, Yes I have reviewed radiologist's interpretation Preliminary Findings: No Fracture Seen PROCEDURE INFORMATION: Exam: XR Left Knee Exam date and time: 08/28/2021 5:43 PM Age: 46 years old Clinical indication: Injury or trauma; Fall; Blunt trauma; Bilateral; Injury date: 08/28/21; Injury details: Fell hitting both knees TECHNIQUE: Imaging protocol: XR Left knee. Views: 3 views. Total images: 3 COMPARISON: CA VENOUS DOPPLER LE LT 03/26/2020 7:09 AM FINDINGS: Bones/joints: No fracture. No blastic or lytic lesions. Small joint effusion in the suprapatellar bursa. Joint spaces are well-maintained. Soft tissues: Mild prepatellar soft tissue swelling. No periostitis or osteolysis. No foreign bodies. Other findings: Normal alignment. IMPRESSION: 1. No fractu
[2021-08-28 18:56] VITALS: BP 118/65; PULSE 73; RESP 18; TEMP 36.4; O2SAT 92
== END 2021-08-28 18:56 | disposition home or self-care (01) ==
PROVIDERS: Emergency Provider Nurse Practitioner Family; PCP Nurse Practitioner Family
DX: M25.561 Pain in right knee (principal); M25.562 Pain in left knee; W01.0XXA Fall on same level from slipping, tripping and stumbling without subsequent striking against object, initial encounter; Y92.019 Unspecified place in single-family (private) house as the place of occurrence of the external cause; I10 Essential (primary) hypertension; E78.5 Hyperlipidemia, unspecified; K21.9 Gastro-esophageal reflux disease without esophagitis; F41.8 Other specified anxiety disorders; Z79.899 Other long term (current) drug therapy; Z87.891 Personal history of nicotine dependence
CPT/HCPCS: G0463; 73562; 99202

== ENCOUNTER 2021-09-01 22:23 | Emergency (ER) | payer MEDICARE, MEDICAID, SELFPAY ==
[2021-09-01 22:24] VITALS: BP 131/84; PULSE 68; RESP 16; TEMP 36.6; O2SAT 97; BMI 41.8
--- NOTE | 2021-09-01 22:31 | XR_ITS ---
PROCEDURE INFORMATION: Exam: XR Cervical Spine Exam date and time: 09/01/2021 10:31 PM Age: 46 years old Clinical indication: Neck pain and radicular pain (radiculopathy); Cervical region; Patient HX: PT C/O upper extremity numbness without injury or trauma TECHNIQUE: Imaging protocol: XR of the cervical spine. Views: 2 or 3 views. Total images: 4 COMPARISON: CR XR CHEST 2V 07/01/2021 10:07 PM FINDINGS: Bones/joints: Craniocervical alignment is normal. The odontoid is intact. Mild reversal of cervical lordosis may be positional or could relate to an element of muscular strain/spasm. Cervical alignment is otherwise well maintained. Facets are well aligned. No blastic or lytic lesions. Moderate disc space narrowing and marginal spurring C4-C5 and C5-C6. Moderate osteoarthritic remodeling at the atlantal dens interval. Soft tissues: Prevertebral soft tissues are normal. 9 mm chronic appearing ossification in the nuchal ligament at the C6 level. Lungs: Visualized pulmonary apices are clear. Other findings: No fractures are evident radiographically. IMPRESSION: 1. No evidence of fracture or traumatic subluxation. 2. Mild reversal of cervical lordosis may be positional or could relate to an element of muscular strain/spasm. 3. Moderate disc degenerative changes C4-C5 and C5-C6. Moderate osteoarthritic remodeling at the atlantal dens interval.
[2021-09-01 22:49] LABS: Chloride 105 mmol/L (98-107)
[2021-09-01 22:50] LABS: Basophils # 0.2 K/mm3 (0-0.2); Basophils % 1.6 % (0.1-2.0); Eosinophils # 0.4 K/mm3 (0.0-0.4); Eosinophils % 4.3 % (0.1-12.0); Hematocrit 37.9 % (42.0-52.0); Hemoglobin 13.2 g/dL (14.1-18.0); Lymphocytes # 2.4 K/mm3 (0.7-4.5); Lymphocytes % 26.6 % (10-50); Mean Corpuscular HGB Conc 34.8 g/dL (31.8-35.4); Mean Corpuscular Hemoglobin 31.6 pg (27.0-31.2); Mean Corpuscular Volume 90.8 fl (80-94); Mean Platelet Volume 7.7 fl (7.4-10.4); Monocytes # 0.6 K/mm3 (0.1-1.0); Monocytes % 6.4 % (1.7-9.3); Neutrophils # 5.6 K/mm3 (1.8-7.8); Neutrophils % 61.1 % (37.0-80.0); Platelet Count 286 K/mm3 (142-424); Potassium 4.2 mmoL/L (3.5-5.1); Red Blood Count 4.18 M/mm3 (4.60-6.20); Red Cell Distribution Width 13.5 % (11.5-17.5); Sodium 140 mmol/L (136-145); White Blood Count 9.2 K/mm3 (4.8-10.8)
[2021-09-01 22:52] LABS: Alanine Aminotransferase 15 U/L (12-78); Alkaline Phosphatase 68 U/L (38-126); Aspartate Amino Transferase 23 U/L (17-59); Blood Urea Nitrogen 13 mg/dl (9-20); Creatinine Clearance Estimated 70 mL/min (50-200); Estimated Glomerular Filt Rate 55 ml/min (>60); GFR (African American) 66 ML/MIN (>60)
[2021-09-01 22:53] LABS: Albumin Level 3.9 g/dl (3.5-5.0); Albumin/Globulin Ratio 1.5 (1.1-1.8); Anion Gap 13.2 mEq/L (5-15); Carbon Dioxide 26 mmol/L (22.0-30.0); Globulin 2.6 g/dL (1.3-3.2); Glucose 102 mg/dl (74-100); Total Protein,Serum 6.5 g/dl (6.3-8.2)
[2021-09-01 22:55] LABS: Bilirubin,Total 0.1 mg/dl (0.2-1.3)
--- NOTE | 2021-09-01 23:29 | PC.NURSE ---
pt's called for an update, pt gave consent. updated on current condition and awaiting xr results.
--- NOTE | 2021-09-02 00:28 | HMH.EDGENADL ---
ED Disposition Clinical Impression: Cervical radicular pain Disposition: Home, Self-Care Condition on Discharge: Good Instructions: DI for Cervical Radiculopathy Additional Instructions: use meds and see pcp for follow up Prescriptions: methylPREDNISolone [Medrol 4mg tab] 4 mg PO DIRECTED #21 tab Transmission Status: Pending to [id number] Referrals: Dio Albarado APRN [Primary Care Provider] - - Critical Care Critical Care Time: No Attestation: On 09/01/21, the high probability of a clinically significant, sudden or life threatening deterioration of the following system(s) required my full and direct attention, intervention and personal management. The time I documented below is in addition to time spent performing reported procedures but includes the following listed in this critical care notation. Medical Decision Making - Medical Records Medical records reviewed: Yes: I reviewed the patient's medical records. - Jonathan Inquiry Pt receiving controlled substance: No Vital Signs: 09/01/21 22:24 Temperature 97.9 F Temperature Source Oral Pulse Rate [Right] 68 Respiratory Rate 16 Blood Pressure [Right Arm] 131/84 Blood Pressure Mean [Right Arm] 99 02 Sat by Pulse Oximetry 97 - Lab Data Lab results reviewed: Yes: I reviewed the patient's lab results. Lab Results 09/01/21 22:37: WBC 9.2, RBC 4.18 L, Hgb 13.2 L, Hct 37.9 L, MCV 90.8, MCH 31.6 H, MCHC 34.8, RDW 13.5, Plt Count 286, MPV 7.7, Neut % (Auto) 61.1, Lymph % (Auto) 26.6, [place] % (Auto) 6.4, Eos % (Auto) 4.3, Baso % (Auto) 1.6, Neut # (Auto) 5.6, Lymph # (Auto) 2.4, [place] # (Auto) 0.6, Eos # (Auto) 0.4, Baso # (Auto) 0.2 09/01/21 22:37: Sodium 140, Potassium 4.2, Chloride 105, Carbon Dioxide 26, Anion Gap 13.2, BUN 13, Creatinine 1.40 H, Estimated Creat Clear 70, Estimated GFR 55 L, Est GFR ( Amer) 66, Glucose 102 H, Calcium 9.0, Total Bilirubin 0.1 L, AST 23, ALT 15, Alkaline Phosphatase 68, Total Protein 6.5, Albumin 3.9, Globulin 2.6, Albumin/Globulin Ratio 1.5 Result diagrams: 09/01/21 22:37 09/01/21 22:37 - Radiology Data #1 Image(s): C-Spine Image Reviewed: Yes I have reviewed radiologist's interpretation Preliminary Findings: Abnormal, No Fracture Seen Medical Decision Narrative: prob cervical radicular issues - General Adult HPI - General Chief complaint: PAIN Stated complaint: L arm numbness Time Seen by Provider: 09/01/21 22:30 Mode of Arrival: Ambulatory Source of Information: Patient, Medical Record Limitations: No Limitations Description of Symptoms (Recalled from ER Triage Doc. by RN): pt c/o lt arm numbness that just started prior to arrival. - History of Present Illness HPI narrative: tingling numbness lt upper ext while sleeping Onset (ago): hour(s) Location: upper extremity Severity: moderate Associated symptoms: denies other symptoms Treatments prior to arrival: none - Related Data Home Medications Medication Instructions Recorded Confirmed gabapentin 800 mg tablet 800 mg PO BID tab 05/25/21 08/23/21 furosemide 40 mg tablet 60 mg PO DAILY tab 06/21/21 08/23/21 spironolactone 50 mg tablet 50 mg PO DAILY tab 06/21/21 08/23/21 Previous Rx's Medication Instructions Recorded topiramate 100 mg tablet 100 mg PO DAILY #30 tab 03/09/20 albuterol sulfate 90 mcg/actuation 2 puff INHALATION Q4-6H PRN #8.5 g 12/07/20 aerosol inhaler ranolazine 1,000 mg 1,000 mg PO BID #60 tab 01/03/21 tablet,extended release,12 hr aspirin 81 mg chewable tablet 81 mg PO DAILY #90 tab 03/29/21 Ibuprofen [Ibuprofen 800mg 800 mg PO TIDP PRN #20 tab 04/29/21 Tablet] atorvastatin 40 mg tablet 40 mg PO HS #90 tab 05/16/21 omeprazole 40 mg capsule,delayed 40 mg PO DAILY #90 cap 06/07/21 release metoprolol succinate 25 mg See Rx Instructions .ROUTE 07/08/21 tablet,extended release 24 hr .COMPLEX #90 tab isosorbide mononitrate 60 mg 60 mg PO DAILY #30 tab 07/19/21 tablet,exte
[2021-09-02 00:35] VITALS: BP 132/80; PULSE 75; RESP 20; TEMP 36.8; O2SAT 97
== END 2021-09-02 00:41 | disposition home or self-care (01) ==
PROVIDERS: Emergency Provider Emergency Medicine; PCP Nurse Practitioner Family
DX: M54.2 Cervicalgia (principal); R20.2 Paresthesia of skin; E78.5 Hyperlipidemia, unspecified; K21.9 Gastro-esophageal reflux disease without esophagitis; I10 Essential (primary) hypertension; Z87.891 Personal history of nicotine dependence; F41.8 Other specified anxiety disorders
CPT/HCPCS: 72040; 80053; 85025; 99282

== ENCOUNTER 2021-09-15 12:43 | Outpatient (RCR) | payer MEDICARE, MEDICAID, SELFPAY | END 2021-09-15 12:45 | disposition home or self-care (01) | LOC: PT 12:43 | PROVIDERS: PCP Nurse Practitioner Family; Visit Provider Nurse Practitioner Family | DX: S43.492D Other sprain of left shoulder joint, subsequent encounter (principal) | CPT/HCPCS: 97163 ==

== ENCOUNTER 2021-10-11 11:08 | Emergency (ER) | payer MEDICARE, MEDICAID, SELFPAY ==
[2021-10-11 12:40] VITALS: BP 133/76; PULSE 67; RESP 18; TEMP 36.8; O2SAT 97; BMI 42.8
--- NOTE | 2021-10-11 13:03 | HMH.EDUTC ---
[facility] [place] Impression: Sinusitis Qualifiers: Sinusitis location: unspecified location Chronicity: unspecified Qualified Code(s): J32.9 - Chronic sinusitis, unspecified Disposition: Home, Self-Care Condition on Discharge: Good Instructions: Sinusitis, Middle Ear Infection, DI for Sinusitis Additional Instructions: *Monitor Temp, Over the counter Motrin or Tylenol as directed/as needed Tylenol every 4 hours and Motrin every 6 hours (as long as your family doctor has told you that you can take it) for fever or pain. and straight to ER if unable to lower temp less than 101.0 after medication given *Warm salt water gargles may help to soothe the throat *Throat Lozenges *Warm fluids like tea with honey may help to soothe the throat *Sleep elevated *Humidifier/Vaporizer Take medication as prescribed Return if needed Follow up IMMEDIATELY for new or worsening symptoms or no Noticeable improvement over the next 48-72 hours. 911 for difficulty breathing or swallowing Prescriptions: Amoxicillin/Potassium Clav [Augmentin 875-125 Tablet] 1 tab PO Q12H 10 Days #20 tab [facility] methylPREDNISolone [Medrol 4mg tab] 4 mg PO DIRECTED #21 tab Transmission Status: Pending to [id number] Referrals: Jorge Velasco MD [Primary Care Provider] - As needed Time of Disposition: 13:32 Medical Decision Making - Jonathan Inquiry Pt receiving controlled substance: No Jonathan was queried for this patient: No Vital Signs: 10/11/21 12:40 Temperature 98.2 F Temperature Source Oral Pulse Rate [Right Brachial] 67 Respiratory Rate 18 Blood Pressure [Right Arm] 133/76 Blood Pressure Mean [Right Arm] 95 Blood Pressure Source [Right Arm] Automatic Cuff Blood Pressure Position [Right Arm] Sitting 02 Sat by Pulse Oximetry 97 Oxygen Delivery Method Room Air Medical Decision Narrative: Patient state that he has taken both azithromycin and medrol in the past without complication or reactions [facility] [place] - General Stated complaint: lt ear pain, cough, congestion Time Seen by Provider: 10/11/21 13:03 Mode of Arrival: Ambulatory Source of Information: Patient Limitations: No Limitations Description of Symptoms (Recalled from Triage Doc. by RN): PATIENT C/O COUGH, CONGESTION AND LEFT EAR PAIN THAT STARTED 10/01/21 HEENT Symptoms (Recalled from RN notes): Yes Resp Symptoms (Recalled from RN notes): Yes Skin Symptoms (Recalled from RN notes): No MS Symptoms (Recalled from RN notes): No Functional Status (Recalled from RN notes): WNL - History of Present Illness Provider Complaint: Patient state that he has been having cough, sinus congestion and pressure and pain in his left ear State that symptoms started on hernan and has continued to get worse So today he came in to get checked Denies exposure to COVID - Related Data Home Medications Medication Instructions Recorded Confirmed furosemide 40 mg tablet 60 mg PO DAILY tab 06/21/21 10/11/21 spironolactone 50 mg tablet 50 mg PO DAILY tab 06/21/21 10/11/21 Previous Rx's Medication Instructions Recorded topiramate 100 mg tablet 100 mg PO DAILY #30 tab 03/09/20 albuterol sulfate 90 mcg/actuation 2 puff INHALATION Q4-6H PRN #8.5 g 12/07/20 aerosol inhaler aspirin 81 mg chewable tablet 81 mg PO DAILY #90 tab 03/29/21 atorvastatin 40 mg tablet 40 mg PO HS #90 tab 05/16/21 metoprolol succinate 25 mg See Rx Instructions .ROUTE 07/08/21 tablet,extended release 24 hr .COMPLEX #90 tab isosorbide mononitrate 60 mg 60 mg PO DAILY #30 tab 07/19/21 tablet,extended release 24 hr fluoxetine 40 mg capsule 40 mg PO DAILY #30 cap 08/08/21 risperidone 1 mg tablet 1 mg PO BID #60 tab 08/08/21 trazodone 50 mg tablet 50 mg PO QHS PRN #30 tab 08/08/21 azelastine 205.5 mcg (0.15 %) 2 spray INTRANASAL HS 90 Days #30 08/19/21 nasal spray ml fluticasone furoate 200 1 inh INHALATION DAILY 90 Days #90 08/19/21 mcg-vilanterol 25
[2021-10-11 13:33] VITALS: BP 133/76; PULSE 67; RESP 18; TEMP 36.8; O2SAT 97
== END 2021-10-11 13:46 | disposition home or self-care (01) ==
PROVIDERS: Emergency Provider Nurse Practitioner; PCP Emergency Medicine
DX: J32.9 Chronic sinusitis, unspecified (principal); F41.8 Other specified anxiety disorders; K21.9 Gastro-esophageal reflux disease without esophagitis; E78.5 Hyperlipidemia, unspecified; I10 Essential (primary) hypertension; J45.909 Unspecified asthma, uncomplicated; Z87.891 Personal history of nicotine dependence; Z79.899 Other long term (current) drug therapy
CPT/HCPCS: G0463; 99202

== ENCOUNTER → 2021-10-17 11:12 | Outpatient (CLI) | payer MEDICARE, MEDICAID, SELFPAY | PROVIDERS: PCP Nurse Practitioner Family; Visit Provider Specialist | DX: G47.33 Obstructive sleep apnea (adult) (pediatric) (principal); J44.9 Chronic obstructive pulmonary disease, unspecified | CPT/HCPCS: 94762 ==

== ENCOUNTER → 2021-10-18 10:32 | Outpatient (CLI) | payer MEDICARE, MEDICAID, SELFPAY ==
--- NOTE | 2021-10-18 10:44 | XR_ITS ---
FINAL REPORT CLINICAL HISTORY: left knee pain FINDINGS: LEFT KNEE Four views of the left knee were obtained. There is no acute fracture or dislocation. There are mild degenerative changes. There is a small joint effusion. IMPRESSION: Mild degenerative change with a small joint effusion. Overall stable from the prior exam. Reviewed, Interpreted and Dictated by Karlos Foss III, MD Transcribed by Roxanne Campbell Authenticated by Karlos Foss III, MD on 10/18/2021 12:55:01 PM [facility]
--- NOTE | 2021-10-18 10:44 | XR_ITS ---
FINAL REPORT CLINICAL HISTORY: knee pain COMPARISON: August 28, 2021 FINDINGS: RIGHT KNEE Four views of the right knee were obtained. There is no acute fracture or dislocation. There are mild degenerative changes. There is a moderate joint effusion. IMPRESSION: Mild degenerative change with a moderate joint effusion. Overall stable from the prior exam. Reviewed, Interpreted and Dictated by Karlos Foss III, MD Transcribed by Roxanne Campbell Authenticated by Karlos Foss III, MD on 10/18/2021 12:54:59 PM [facility]
== END ==
PROVIDERS: PCP Nurse Practitioner Family; Visit Provider Orthopaedic Surgery
DX: M25.561 Pain in right knee (principal); M25.562 Pain in left knee
CPT/HCPCS: 73564

== ENCOUNTER → 2021-10-20 11:32 | Outpatient (CLI) | payer MEDICARE, MEDICAID, SELFPAY ==
[2021-10-20 12:21] LABS: Basophils # 0.1 K/mm3 (0-0.2); Basophils % 0.4 % (0.1-2.0); Eosinophils # 0.1 K/mm3 (0.0-0.4); Eosinophils % 0.7 % (0.1-12.0); Hematocrit 41.1 % (42.0-52.0); Hemoglobin 13.6 g/dL (14.1-18.0); Lymphocytes # 1.7 K/mm3 (0.7-4.5); Lymphocytes % 13.4 % (10-50); Mean Corpuscular Hemoglobin 30.9 pg (27.0-31.2); Mean Corpuscular Volume 93.5 fl (80-94); Mean Platelet Volume 8.1 fl (7.4-10.4); Monocytes # 0.7 K/mm3 (0.1-1.0); Monocytes % 5.4 % (1.7-9.3); Neutrophils # 9.9 K/mm3 (1.8-7.8); Neutrophils % 80.1 % (37.0-80.0); Platelet Count 256 K/mm3 (142-424); White Blood Count 12.3 K/mm3 (4.8-10.8)
[2021-10-20 12:52] LABS: Chloride 102 mmol/L (98-107); Potassium 4.4 mmoL/L (3.5-5.1); Sodium 137 mmol/L (136-145)
[2021-10-20 12:55] LABS: Anion Gap 12.4 mEq/L (5-15); Blood Urea Nitrogen 14 mg/dl (9-20); Calcium 9.1 mg/dl (8.4-10.2); Carbon Dioxide 27 mmol/L (22.0-30.0); Estimated Glomerular Filt Rate 91 ml/min (>60); GFR (African American) 110 ML/MIN (>60); Glucose 99 mg/dl (74-100)
[2021-10-20 13:03] LABS: NT Pro Brain Natriuretic Pep. 70.7 pg/mL (0-125)
== END ==
PROVIDERS: PCP Nurse Practitioner Family; Visit Provider Urology
DX: R06.02 Shortness of breath; R06.01 Orthopnea; I25.119 Atherosclerotic heart disease of native coronary artery with unspecified angina pectoris; I50.33 Acute on chronic diastolic (congestive) heart failure; I11.0 Hypertensive heart disease with heart failure; E66.01 Morbid (severe) obesity due to excess calories; E78.2 Mixed hyperlipidemia; R60.0 Localized edema; Z68.41 Body mass index [BMI] 40.0-44.9, adult
CPT/HCPCS: 36415; 80048; 83880; 85025

== ENCOUNTER 2021-10-24 08:54 | Outpatient (RCR) | payer MEDICARE, MEDICAID, SELFPAY ==
--- NOTE | 2021-10-24 09:26 | HMH.PTOPEV ---
PT Outpatient Evaluation Rehab PT Outpatient Evaluation Start: 10/24/21 09:13 Freq: Status: Active Protocol: Document 10/24/21 09:14 GIOVANNI (Rec: 10/24/21 09:26 GIOVANNI [id number]) Electronically Signed By Manpreet Copeland, PT 10/24/21 09:14 Outpatient Therapy Subjective History Subjective History Patient is a 46 year old male presenting to outpatient PT with reports of chronic bilateral knee pain R>L. Symptoms of insidious onset starting approx 4 years ago. Symptoms have progressively gotten worse over the 1.5 weeks. Most recent imaging indicates B knee OA. Comorbidities include hx of HTN, HL and appendectomy. Chief Complaint Pain,Stiff,Clicks,Gives out/ Unstable Symptom Type Ache Symptoms Relieved By Rest/Positioning,OTC Meds Prior Functional Limitations Standing,Walking Current Functional Limitations Housework,Standing,Walking, Stairs Symptom Description Constant but Variable Level of pain today (0-10) 5 Pain scale - at its best (0-10) 3 Pain scale - at its worst (0-10) 8 Hip/Knee Eval Gait Observation General Gait Pattern Observation Antalgic Gait,Decrease Weight Bear (R) Assistive Device Assistive Devices None / NA Palpation Tenderness bilateral Knee Palpation Finding Tenderness Knee Palpation Overall Comment medial joint lines 2/4 MMT left Hip Flexion Strength Grade 5 Normal Hip Abduction Strength Grade 4 Good Hip Adduction Strength Grade 4 Good Hip Extension Strength Grade 4 Good Hip External Rotation Strength Grade 4 Good Hip Internal Rotation Strength Grade 4 Good Knee Extension Strength Grade 5 Normal Knee Flexion Strength Grade 5 Normal right Hip Flexion Strength Grade 4 Good Hip Abduction Strength Grade 4 Good Hip Adduction Strength Grade 4 Good Hip Extension Strength Grade 4- Good- Hip External Rotation Strength Grade 4- Good- Hip Internal Rotation Strength Grade 4- Good- Knee Extension Strength Grade 4- Good- Knee Flexion Strength Grade 4 Good ROM left Hip ROM Reason Not Measured Within Functional Limits Knee Extension Active Range of Motion ( 0 degrees) Knee Flexion Active Range of Motion ( 110 degrees) right Hip ROM Reason Not Measured Within Functional Limits Knee Extension Active Range of Motion ( -2
== END 2021-10-24 08:55 | disposition home or self-care (01) ==
LOC: PT 08:54
PROVIDERS: PCP Nurse Practitioner Family; Visit Provider Orthopaedic Surgery
DX: M17.0 Bilateral primary osteoarthritis of knee (principal)
CPT/HCPCS: 97163

== ENCOUNTER 2021-10-25 15:04 | Emergency (ER) | payer MEDICARE, MEDICAID, SELFPAY ==
[2021-10-25 15:30] VITALS: BP 127/69; PULSE 82; RESP 18; TEMP 36.7; O2SAT 96; BMI 43.2
[2021-10-25 16:00] LABS: UTC Influenza A Antigen Negative (Negative); UTC Influenza B Antigen Negative (Negative)
[2021-10-25 16:01] LABS: UTC Strep Screen (Rapid) Negative (Negative)
--- NOTE | 2021-10-25 16:03 | HMH.EDUTC ---
[facility] [place] Clinical Impression: Sore throat Disposition: Home, Self-Care Condition on Discharge: Good Instructions: Sore Throat, DI for COVID-19 (Suspected or Confirmed ), Preventing the Spread of Coronavirus Discharge Instructions Additional Instructions: *Monitor Temp, Over the counter Motrin or Tylenol as directed/as needed Tylenol every 4 hours and Motrin every 6 hours (as long as your family doctor has told you that you can take it) for fever or pain. and straight to ER if unable to lower temp less than 101.0 after medication given *Warm salt water gargles may help to soothe the throat *Throat Lozenges *Warm fluids like tea with honey may help to soothe the throat *Sleep elevated *Humidifier/Vaporizer Make sure to follow up with your Family Doctor for the results of the culture of your breast Your throat swab was sent for culture. Those results are typically sent to your primary care. Be sure to follow up in 2-3 days with your family doctor/primary care physician if no improvement so they can review those result and treat if necessary. If you don?t have a primary care doctor, I recommend you get one but in the mean time, you will have to return to a walk in clinic Follow up IMMEDIATELY for new or worsening symptoms or no Noticeable improvement over the next 48-72 hours. 911 for difficulty breathing or swallowing You were tested for today for COVID19 your test result should be back in the next 24-48 hours, you may check your COVID test result on the [facility] My Health Portal if you have trouble logging on you may call support for assistance You was given a handout with instructions for Self Quarantine and Self isolation for while you wait on test results and what to do if they are positive If you are positive the Health Dept will be contacting you also Make sure to take your Vitamins Vit. C Vit D and Zinc if you can take them Referrals: Dio Albarado APRN [Primary Care Provider] - As needed Time of Disposition: 16:46 Medical Decision Making - Jonathan Inquiry Pt receiving controlled substance: No Jonathan was queried for this patient: No Vital Signs: 10/25/21 15:30 Temperature 98.0 F Temperature Source Oral Pulse Rate [Right Brachial] 82 Respiratory Rate 18 Blood Pressure [Right Arm] 127/69 Blood Pressure Mean [Right Arm] 88 Blood Pressure Source [Right Arm] Automatic Cuff Blood Pressure Position [Right Arm] Sitting 02 Sat by Pulse Oximetry 96 Oxygen Delivery Method Room Air - Lab Data Lab results reviewed: Yes: I reviewed the patient's lab results. Lab Results 10/25/21 15:50: Strep Scn Rapid Clinic Negative 10/25/21 15:50: Influenza Type A Ag Negative, Influenza Type B Ag Negative Orders (Tests/Meds): ORDERS Category Date Time Status Covid-19 Nasal PCR ([facility]) Routine Lab 10/25/21 15:50 Received Strep Screen Confirmation Routine Micro 10/25/21 15:50 Received Medical Decision Narrative: Patient educated to make sure that he rinses mouth out well after using his breo inhaler as it may cause sore throat and irritation and patient verbalized understanding patient states he has appointment with his PCP tomorrow Culture obtained from drainage from right breast area no redness no swelling or warmth noted Patient denies fever denies [facility] [place] HPI - General Stated complaint: covid test/treated for symptoms Time Seen by Provider: 10/25/21 16:03 Mode of Arrival: Ambulatory Source of Information: Patient Limitations: No Limitations Description of Symptoms (Recalled from Triage Doc. by RN): PATIENT C/O SORE THROAT. ALSO STATES HE IS HAVING PAIN IN RIGHT BREAST WITH GREEN DRAINAGE COMING OUT OF NIPPLE X 1 WEEK. HEENT Symptoms (Recalled from RN notes): Yes Resp Symptoms (Recalled from RN notes): No Skin Symptoms (Recalled from RN notes): No MS Symptoms (Recalled from RN notes): No Functional Status (Recalled from RN notes): WNL - History of Present Illness Provider Complaint: Patient states that h
[2021-10-25 16:45] VITALS: BP 127/69; PULSE 82; RESP 18; TEMP 36.7; O2SAT 96
== END 2021-10-25 16:50 | disposition home or self-care (01) ==
PROVIDERS: Emergency Provider Nurse Practitioner; PCP Nurse Practitioner Family
DX: J02.9 Acute pharyngitis, unspecified (principal); R07.9 Chest pain, unspecified; K21.9 Gastro-esophageal reflux disease without esophagitis; F41.8 Other specified anxiety disorders; Z20.822 Contact with and (suspected) exposure to COVID-19; Z87.891 Personal history of nicotine dependence
CPT/HCPCS: G0463; 87070; 87205; 87804; 87880; 99203; C9803; U0003; U0005

== ENCOUNTER → 2021-11-01 18:04 | Outpatient (CLI) | payer MEDICARE, MEDICAID, SELFPAY ==
[2021-11-01 18:08] LABS: Adenovirus,PCR Not Detected (NotDetected); Bordetella Pertussis Not Detected (NotDetected); Chlamydophila Pneumoniae, PCR Not Detected (NotDetected); Coronavirus 229E Not Detected (NotDetected); Coronavirus NL63 Not Detected (NotDetected); Coronavirus OC43 Not Detected (NotDetected); Coronovirus HKU1,PCR Not Detected (NotDetected); Human Metapneumovirus Not Detected (NotDetected); Influenza A, PCR Not Detected (NotDetected); Influenza AH1, 2009 Not Detected (NotDetected); Influenza AH1, PCR Not Detected (NotDetected); Influenza AH3,PCR Not Detected (NotDetected); Influenza B, PCR Not Detected (NotDetected); Mycoplasma Pneumoniae, PCR Not Detected (NotDetected); Parainfluenza 1, PCR Not Detected (NotDetected); Parainfluenza 2, PCR Not Detected (NotDetected); Parainfluenza 3, PCR Not Detected (NotDetected); Parainfluenza 4, PCR Not Detected (NotDetected); Respiratory Syncytial Virus Not Detected (NotDetected); Rhinovirus/Enterovirus Not Detected (NotDetected)
== END ==
PROVIDERS: Visit Provider Nurse Practitioner Family
DX: Z20.822 Contact with and (suspected) exposure to COVID-19 (principal)
CPT/HCPCS: 87486; 87581; 87632; 87798

== ENCOUNTER 2021-11-14 19:18 | Emergency (ER) | payer MEDICARE, MEDICAID, SELFPAY ==
[2021-11-14 19:18] VITALS: BP 148/94; PULSE 81; RESP 16; TEMP 37.2; O2SAT 95; BMI 41.8
--- NOTE | 2021-11-14 19:58 | XR_ITS ---
PROCEDURE INFORMATION: Exam: XR Chest Exam date and time: 11/14/2021 7:58 PM Age: 46 years old Clinical indication: Patient HX: Cough, tested neg for covid on the . Symptoms not improving TECHNIQUE: Imaging protocol: XR of the chest. Views: 2 views. COMPARISON: CR XR CHEST 2V 07/01/2021 10:07 PM FINDINGS: Lungs: Left lower lung scarring. Pleural spaces: Unremarkable. No pleural effusion. No pneumothorax. Heart/Mediastinum: Unremarkable. No cardiomegaly. Bones/joints: Unremarkable. IMPRESSION: No acute findings.
--- NOTE | 2021-11-14 20:10 | HMH.EDUTC ---
[facility] [place] Impression: Viral syndrome Asthma exacerbation Qualifiers: Asthma severity: unspecified severity Asthma persistence: unspecified Qualified Code(s): J45.901 - Unspecified asthma with (acute) exacerbation Acute bronchitis Qualifiers: Bronchitis organism: unspecified organism Qualified Code(s): J20.9 - Acute bronchitis, unspecified Disposition: Home, Self-Care Condition on Discharge: Good Instructions: Acute Bronchitis, DI for Asthma -- Adult, DI for Acute Bronchitis, DI for COVID-19 (Suspected or Confirmed ), Preventing the Spread of Coronavirus Discharge Instructions Additional Instructions: Drink plenty of fluids. Take tylenol for pain or fever. Take the medications as directed. Follow up with your regular doctor. GO TO THE ER FOR ANY WORSENING SYMPTOMS Quarantine until you know the results of your covid-19 test. Notify your school or workplace of your results and follow their instructions regarding return to work/school. Don't start the oral steroids until tomorrow, since you had the shot here today. The cough medication (promethazine dm) will make you drowsy, so don't drive or operate heavy machinery after taking it. Prescriptions: Promethazine/Dextromethorphan [Promethazine-Dm Syrup] 5 ml PO Q6HP PRN #240 ml PRN Reason: Cough Transmission Status: Received by [id number] Amoxicillin/Potassium Clav [Augmentin 875-125 Tablet] 1 tab PO Q12H 10 Days #20 tab Transmission Status: Received by [id number] predniSONE [Deltasone 10mg tablet] 10 mg PO DAILY 9 Days #21 tab Transmission Status: Received by [facility] guaiFENesin [Mucinex 600mg tablet] 1 - 2 tab PO BIDP PRN #30 tab PRN Reason: Congestion Transmission Status: Received by [id number] Referrals: Dio Albarado APRN [Primary Care Provider] - Time of Disposition: 20:57 Medical Decision Making - Medical Records Medical records reviewed: No: I reviewed the patient's medical records. - Jonathan Inquiry Pt receiving controlled substance: No Vital Signs: 11/14/21 19:18 11/14/21 21:01 Temperature 98.9 F 98.9 F Temperature Source Oral Oral Pulse Rate 80 Pulse Rate [Right] 81 Respiratory Rate 16 16 Blood Pressure 146/90 H Blood Pressure [Right Arm] 148/94 H Blood Pressure Mean [Right Arm] 112 Blood Pressure Source Automatic Cuff Blood Pressure Source [Right Arm] Automatic Cuff Blood Pressure Position Sitting Blood Pressure Position [Right Arm] Sitting 02 Sat by Pulse Oximetry 95 Oxygen Delivery Method Room Air Room Air Orders (Tests/Meds): ED MEDICATIONS Discontinued Medications Generic Name Dose Route Start Last Admin Trade Name Yuly PRN Reason Stop Dose Admin Ceftriaxone Sodium 1 gm 11/14/21 20:49 11/14/21 21:07 Ceftriaxone 1gm Vial IM 11/14/21 20:50 1 gm ONCE ONE Administration Lidocaine HCl 0 ml 11/14/21 20:49 11/14/21 21:07 Lidocaine 1% 5ml Pf Vial IM 11/14/21 20:50 2.1 ml ONCE ONE Administration Methylprednisolone Sodium Succinate 125 mg 11/14/21 20:49 11/14/21 21:07 Methylprednisolone Sod Succ 125mg Vial IM 11/14/21 20:50 125 mg ONCE ONE Administration ORDERS Category Date Time Status Covid-19 Nasal PCR ([facility]) Routine Lab 11/14/21 21:15 Received - Radiology Data #1 Image(s): Chest Image Reviewed: Yes I reviewed the patient's radiology image, Yes I have reviewed radiologist's interpretation Preliminary Findings: Normal/NAD, No Infiltrates Seen PROCEDURE INFORMATION: Exam: XR Chest Exam date and time: 11/14/2021 7:58 PM Age: 46 years old Clinical indication: Patient HX: Cough, tested neg for covid on the . Symptoms not improving TECHNIQUE: Imaging protocol: XR of the chest. Views: 2 views. COMPARISON: CR XR CHEST 2V 07/01/2021 10:07 PM FINDINGS: Lungs: Left lower lung scarring. Pleural spaces: Unremarkable. No pleural effusion. No pneumothorax. Heart/Mediastin
[2021-11-14 21:01] VITALS: BP 146/90; PULSE 80; RESP 16; TEMP 37.2; O2SAT 95
== END 2021-11-14 21:22 | disposition home or self-care (01) ==
PROVIDERS: Emergency Provider Nurse Practitioner Family; PCP Nurse Practitioner Family
DX: J45.901 Unspecified asthma with (acute) exacerbation (principal); B34.9 Viral infection, unspecified; J20.9 Acute bronchitis, unspecified; Z20.822 Contact with and (suspected) exposure to COVID-19; F41.8 Other specified anxiety disorders; I10 Essential (primary) hypertension; E78.5 Hyperlipidemia, unspecified; K21.9 Gastro-esophageal reflux disease without esophagitis; Z87.891 Personal history of nicotine dependence
CPT/HCPCS: G0463; 71046; 96372; 99202; C9803; J0696; U0003; U0005

== ENCOUNTER 2021-11-27 20:06 | Emergency (ER) | payer MEDICARE, MEDICAID, SELFPAY ==
[2021-11-27] VITALS (8 sets, daily range): BP systolic 109–136; BP diastolic 73–86; PULSE 73–87; RESP 18–24; TEMP 36.7; O2SAT 93–96; BMI 38.0
--- NOTE | 2021-11-27 20:14 | XR_ITS ---
PROCEDURE INFORMATION: Exam: XR Chest Exam date and time: 11/27/2021 8:14 PM Age: 46 years old Clinical indication: Sternal or substernal pain; Additional info: Chest pain TECHNIQUE: Imaging protocol: XR of the chest. Views: 2 views. COMPARISON: CR XR CHEST 2V 11/14/2021 7:58 PM FINDINGS: Lungs: Mild left basilar atelectasis or scarring. Mild biapical pleuroparenchymal scarring. Pleural spaces: Unremarkable. No pleural effusion. No pneumothorax. Heart/Mediastinum: Normal. Bones/joints: Mild multilevel thoracic spine degenerative disc space narrowing and osteophyte formation. IMPRESSION: No acute cardiopulmonary abnormality.
--- NOTE | 2021-11-27 20:27 | ECG_ITS ---
APPROVED REPORT Exam: Resting ECG HR:79 bpm ECG Measurements Heart Rate 79 AXES NJ 190 P 43 QRSd 87 QRS 12 QT 371 T 56 QTc 406 Conclusion SINUS RHYTHM LOW QRS VOLTAGE IN PRECORDIAL LEADS [QRS DEFLECTION < 1.0 mV IN CHEST LEADS] ABNORMAL ECG UNCONFIRMED REPORT Electronically signed by : Carlos Noland MD 11/28/2021 17:59:40
[2021-11-27 20:34] LABS: Basophils # 0.1 K/mm3 (0-0.2); Basophils % 0.6 % (0.1-2.0); Eosinophils # 0.3 K/mm3 (0.0-0.4); Eosinophils % 1.9 % (0.1-12.0); Hematocrit 39.9 % (42.0-52.0); Hemoglobin 13.6 g/dL (14.1-18.0); Lymphocytes # 2.5 K/mm3 (0.7-4.5); Lymphocytes % 18.8 % (10-50); Mean Corpuscular Hemoglobin 31.8 pg (27.0-31.2); Mean Corpuscular Volume 93.5 fl (80-94); Mean Platelet Volume 7.6 fl (7.4-10.4); Monocytes # 0.7 K/mm3 (0.1-1.0); Monocytes % 5.4 % (1.7-9.3); Neutrophils # 9.6 K/mm3 (1.8-7.8); Neutrophils % 73.4 % (37.0-80.0); Platelet Count 218 K/mm3 (142-424); Red Blood Count 4.27 M/mm3 (4.60-6.20)
[2021-11-27 20:39] LABS: Alanine Aminotransferase 23 U/L (12-78); Albumin/Globulin Ratio 1.4 (1.1-1.8); Alkaline Phosphatase 57 U/L (38-126); Anion Gap 11.3 mEq/L (5-15); Aspartate Amino Transferase 39 U/L (17-59); Bilirubin,Total 0.3 mg/dl (0.2-1.3); Blood Urea Nitrogen 13 mg/dl (9-20); Calcium 8.7 mg/dl (8.4-10.2); Carbon Dioxide 24 mmol/L (22.0-30.0); Chloride 106 mmol/L (98-107); Creatinine Clearance Estimated 166 mL/min (50-200); Estimated Glomerular Filt Rate 80 ml/min (>60); GFR (African American) 97 ML/MIN (>60); Globulin 2.8 g/dL (1.3-3.2); Glucose 107 mg/dl (74-100); Magnesium 1.8 mg/dl (1.6-2.3); Potassium 4.3 mmoL/L (3.5-5.1); Sodium 137 mmol/L (136-145); Total Protein,Serum 6.8 g/dl (6.3-8.2)
[2021-11-27 20:44] LABS: C-Reactive Protein 6.9 mg/L (0-4)
--- NOTE | 2021-11-27 20:52 | HMH.EDCP ---
ED Disposition Clinical Impression: Chest pain Qualifiers: Chest pain type: precordial pain Qualified Code(s): R07.2 - Precordial pain Disposition: Home, Self-Care Condition on Discharge: Good Instructions: DI for Chest Pain Additional Instructions: see card in am Referrals: Dio Albarado APRN [Primary Care Provider] - - Critical Care Critical Care Time: No Attestation: On 11/27/21, the high probability of a clinically significant, sudden or life threatening deterioration of the following system(s) required my full and direct attention, intervention and personal management. The time I documented below is in addition to time spent performing reported procedures but includes the following listed in this critical care notation. Medical Decision Making - Medical Records Medical records reviewed: Yes: I reviewed the patient's medical records. - Jonathan Inquiry Pt receiving controlled substance: No Vital Signs: 11/27/21 20:07 Temperature 98.0 F Temperature Source Oral Pulse Rate [Right] 82 Respiratory Rate 24 Blood Pressure [Right Arm] 132/80 Blood Pressure Mean [Right Arm] 97 02 Sat by Pulse Oximetry 95 Oxygen Delivery Method Room Air - Lab Data Lab results reviewed: Yes: I reviewed the patient's lab results. Lab Results 11/27/21 20:10: ESR 26 H 11/27/21 20:10: Troponin I < 0.01, C-Reactive Protein 6.9 H, Procalcitonin 0.043 11/27/21 20:10: WBC 13.0 H, RBC 4.27 L, Hgb 13.6 L, Hct 39.9 L, MCV 93.5, MCH 31.8 H, MCHC 34.0, RDW 14.0, Plt Count 218, MPV 7.6, Neut % (Auto) 73.4, Lymph % (Auto) 18.8, [place] % (Auto) 5.4, Eos % (Auto) 1.9, Baso % (Auto) 0.6, Neut # (Auto) 9.6 H, Lymph # (Auto) 2.5, [place] # (Auto) 0.7, Eos # (Auto) 0.3, Baso # (Auto) 0.1 11/27/21 20:10: Sodium 137, Potassium 4.3, Chloride 106, Carbon Dioxide 24, Anion Gap 11.3, BUN 13, Creatinine 1.00, Estimated Creat Clear 166, Estimated GFR 80, Est GFR ( Amer) 97, Glucose 107 H, Calcium 8.7, Magnesium 1.8, Total Bilirubin 0.3, AST 39, ALT 23, Alkaline Phosphatase 57, Total Protein 6.8, Albumin 4.0, Globulin 2.8, Albumin/Globulin Ratio 1.4 11/27/21 22:50: SARS-CoV-2 (PCR) Not detected, Influenza A Untype (PCR) Not detected, Influenza Type B (PCR) Not detected 11/27/21 23:00: Troponin I < 0.01 Result diagrams: 11/27/21 20:10 11/27/21 20:10 Orders (Tests/Meds): ED MEDICATIONS Discontinued Medications Generic Name Dose Route Start Last Admin Trade Name Yuly PRN Reason Stop Dose Admin Aspirin 324 mg 11/27/21 20:27 11/27/21 20:29 Aspirin 81mg Chewable Tablet PO 11/27/21 20:28 243 mg ONCE ONE Administration Sodium Chloride 1,000 mls @ 999 mls/hr 11/27/21 20:30 11/27/21 20:33 Sod Chlor 0.9% 1000ml Bag IV 11/27/21 21:30 999 mls/hr .Q1H1M JABARI Administration Nitroglycerin 1 gm 11/27/21 20:27 11/27/21 20:31 Nitroglycerin 1 Gm Ointment TD 11/27/21 20:28 1 gm ONCE ONE Administration Nitroglycerin 0.4 mg 11/27/21 20:27 11/27/21 20:31 Nitroglycerin 0.4mg Sl Tablet SL 11/27/21 20:28 0.4 mg ONCE ONE Administration ORDERS Category Date Time Status Troponin I Q3H Lab 11/28/21 02:30 Ordered - Radiology Data #1 Image(s): Chest Image Reviewed: Yes I have reviewed radiologist's interpretation Preliminary Findings: Normal/NAD - ECG Data Tracing #1 Normal Sinus Rhythm: Yes Ischemic changes: non-specific ST-T wave changes Medical Decision Narrative: has ongoing chest pain and stable vital signs and labs and will ask pt to see card in am Chest Pain HPI - General Chief Complaint: Chest Pain Stated Complaint: chest pain Time Seen by Provider: 11/27/21 20:15 Mode of Arrival: Family Vehicle Source of Information: Patient, Medical Record Limitations: No Limitations Description of Symptoms (Recalled from ER Triage Doc. by RN): Pt c/o left chest wall pain that radiates up bilat neck, down left arm, and into right leg. Also c/o nausea & vomiting. States he had a heart cath last
[2021-11-27 20:56] LABS: Troponin I < 0.01 ng/ml (0.00-0.034)
[2021-11-27 20:57] LABS: Erythrocyte Sedimentation Rate 26 mm/hr (0-15)
[2021-11-27 20:58] LABS: Procalcitonin 0.043 ng/mL (0.0-2.0)
[2021-11-27 22:51] LABS: Coronavirus 19, PCR Not Detected (NotDetected); Influenza A, PCR Not Detected (NotDetected); Influenza B, PCR Not Detected (NotDetected)
[2021-11-27 23:38] LABS: Troponin I < 0.01 ng/ml (0.00-0.034)
[2021-11-28] VITALS: BP 115/70; PULSE 89; O2SAT 95
[2021-11-28 00:12] VITALS: BP 115/70; PULSE 91; RESP 20; TEMP 36.8; O2SAT 99
== END 2021-11-28 00:28 | disposition home or self-care (01) ==
PROVIDERS: Emergency Provider Emergency Medicine; PCP Nurse Practitioner Family
DX: R07.2 Precordial pain (principal); I50.30 Unspecified diastolic (congestive) heart failure; K21.9 Gastro-esophageal reflux disease without esophagitis; E78.5 Hyperlipidemia, unspecified; I10 Essential (primary) hypertension; F41.9 Anxiety disorder, unspecified; Z87.891 Personal history of nicotine dependence
CPT/HCPCS: 71046; 80053; 83735; 84145; 84484; 85025; 85651; 86140; 93005; 96365; 99283; 99284; C9803; U0003; U0005

== ENCOUNTER → 2021-12-19 20:03 | Outpatient (CLI) | payer MEDICARE, MEDICAID, SELFPAY | PROVIDERS: PCP Nurse Practitioner Family; Visit Provider Nurse Practitioner Family | DX: G47.33 Obstructive sleep apnea (adult) (pediatric) (principal); R09.02 Hypoxemia | CPT/HCPCS: 95811 ==

== ENCOUNTER → 2022-02-02 15:34 | Outpatient (CLI) | payer MEDICARE, MEDICAID, SELFPAY ==
[2022-02-02 17:07] LABS: Basophils # 0.1 K/mm3 (0-0.2); Eosinophils # 0.3 K/mm3 (0.0-0.4); Monocytes # 0.6 K/mm3 (0.1-1.0)
[2022-02-02 18:01] LABS: Alanine Aminotransferase 19 U/L (12-78); Albumin Level 4.2 g/dl (3.5-5.0); Albumin/Globulin Ratio 1.8 (1.1-1.8); Alkaline Phosphatase 78 U/L (38-126); Anion Gap 12.4 mEq/L (5-15); Aspartate Amino Transferase 21 U/L (17-59); Bilirubin,Total 0.4 mg/dl (0.2-1.3); Blood Urea Nitrogen 11 mg/dl (9-20); Calcium 9.3 mg/dl (8.4-10.2); Carbon Dioxide 27 mmol/L (22.0-30.0); Chloride 100 mmol/L (98-107); Chol/HDL Ratio 4.1 (1-3.5); Cholesterol 115 mg/dl (140-200); Estimated Glomerular Filt Rate 72 ml/min (>60); GFR (African American) 87 ML/MIN (>60); Globulin 2.4 g/dL (1.3-3.2); Glucose 96 mg/dl (74-100); HDL Cholesterol 28 mg/dl (40-60); Potassium 4.4 mmoL/L (3.5-5.1); Sodium 135 mmol/L (136-145); Total Protein,Serum 6.6 g/dl (6.3-8.2); Triglycerides 177 mg/dl (30-150); VLDL Cholesterol 35 mg/dL (0-40)
[2022-02-02 18:12] LABS: Direct LDL Cholesterol 52.16 mg/dL (100-129)
[2022-02-02 18:19] LABS: T4 (Thyroxine) 9.3 ug/dl (5.53-11.0)
[2022-02-02 18:20] LABS: 25-OH Vitamin D, Total 30.4 ng/mL (30-100)
[2022-02-02 18:32] LABS: Thyroid Stimulating Hormone 1.62 uIU/mL (0.465-4.68)
[2022-02-02 18:52] LABS: Hematocrit 41.1 % (42.0-52.0); Hemoglobin 13.8 g/dL (14.1-18.0); Mean Corpuscular Volume 94.4 fl (80-94); Red Blood Count 4.36 M/mm3 (4.60-6.20); White Blood Count 9.4 K/mm3 (4.8-10.8)
[2022-02-02 18:53] LABS: Basophils % 1.5 % (0.1-2.0); Eosinophils % 3.5 % (0.1-12.0); Lymphocytes # 2.1 K/mm3 (0.7-4.5); Lymphocytes % 22.7 % (10-50); Mean Corpuscular HGB Conc 33.5 g/dL (31.8-35.4); Mean Corpuscular Hemoglobin 31.7 pg (27.0-31.2); Mean Platelet Volume 8.6 fl (7.4-10.4); Monocytes % 6.2 % (1.7-9.3); Neutrophils # 6.2 K/mm3 (1.8-7.8); Neutrophils % 66.1 % (37.0-80.0); Platelet Count 313 K/mm3 (142-424); Red Cell Distribution Width 13.9 % (11.5-17.5)
[2022-02-11 05:10] LABS: D001-IgE D pteronyssinus <0.10 kU/L (Class 0); D002-IgE D farinae 0.66 kU/L (Class II); E001-IgE Cat Dander <0.10 kU/L (Class 0); E005-IgE Dog Dander <0.10 kU/L (Class 0); E072-IgE Mouse Urine <0.10 kU/L (Class 0); G002-IgE Bermuda Grass <0.10 kU/L (Class 0); G006-IgE Timothy Grass <0.10 kU/L (Class 0); I006-IgE Cockroach, German <0.10 kU/L (Class 0); Immunoglobulin E, Total 51 IU/mL (6-495); M001-IgE Penicillium chrysogen <0.10 kU/L (Class 0); M002-IgE Cladosporium herbarum <0.10 kU/L (Class 0); M003-IgE Aspergillus fumigatus <0.10 kU/L (Class 0); M006-IgE Alternaria alternata <0.10 kU/L (Class 0); T001-IgE Maple/Box Elder <0.10 kU/L (Class 0); T003-IgE Common Silver Birch <0.10 kU/L (Class 0); T006-IgE Cedar, Mountain <0.10 kU/L (Class 0); T007-IgE Oak, White <0.10 kU/L (Class 0); T008-IgE Elm, American <0.10 kU/L (Class 0); T010-IgE Walnut <0.10 kU/L (Class 0); T011-IgE Maple Leaf Sycamore <0.10 kU/L (Class 0); T014-IgE Cottonwood <0.10 kU/L (Class 0); T015-IgE Ash, White <0.10 kU/L (Class 0); T022-IgE Pecan, Hickory <0.10 kU/L (Class 0); T070-IgE White Mulberry <0.10 kU/L (Class 0); W001-IgE Ragweed, Short <0.10 kU/L (Class 0); W011-IgE Thistle, Russian <0.10 kU/L (Class 0); W014-IgE Pigweed, Common <0.10 kU/L (Class 0); W018-IgE Sheep Sorrel <0.10 kU/L (Class 0)
[2022-02-14 13:19] LABS: Testosterone, Total, LC/MS 76.1 ng/dL (264.0-916.0)
== END ==
PROVIDERS: PCP Nurse Practitioner Family; Visit Provider Internal Medicine Pulmonary Disease
DX: E78.5 Hyperlipidemia, unspecified (principal); G47.33 Obstructive sleep apnea (adult) (pediatric); I10 Essential (primary) hypertension; N28.9 Disorder of kidney and ureter, unspecified; R53.83 Other fatigue; E55.9 Vitamin D deficiency, unspecified; R07.89 Other chest pain; J45.40 Moderate persistent asthma, uncomplicated; J30.9 Allergic rhinitis, unspecified; Z87.891 Personal history of nicotine dependence
CPT/HCPCS: 36415; 80053; 80061; 82306; 82785; 84403; 84436; 84443; 85025; 86003

== ENCOUNTER 2022-02-10 21:36 | Emergency (ER) | payer MEDICARE, MEDICAID, SELFPAY ==
--- NOTE | 2022-02-10 21:30 | ECG_ITS ---
APPROVED REPORT Exam: Resting ECG HR:76 bpm ECG Measurements Heart Rate 76 AXES RI 172 P 52 QRSd 99 QRS 25 QT 421 T 59 QTc 451 Conclusion SINUS RHYTHM LOW QRS VOLTAGE IN PRECORDIAL LEADS [QRS DEFLECTION < 1.0 mV IN CHEST LEADS] Old inferior q waves of uncertain significance Late R wave progression ABNORMAL ECG UNCONFIRMED REPORT Electronically signed by : Carlos Noland MD 02/11/2022 09:02:31
[2022-02-10 21:31] VITALS: BP 115/41; PULSE 59; RESP 16; TEMP 36.8; O2SAT 99; BMI 43.2
--- NOTE | 2022-02-10 21:35 | XR_ITS ---
PROCEDURE INFORMATION: Exam: XR Chest Exam date and time: 02/10/2022 9:37 PM Age: 46 years old Clinical indication: Sternal or substernal pain; Additional info: Cp TECHNIQUE: Imaging protocol: XR of the chest. Views: 2 views. COMPARISON: CR XR CHEST 2V 11/27/2021 8:12 PM FINDINGS: Lungs: There is a 4 cm lenticular opacity in the lower left lung field, which could be atelectasis or small focus of pneumonia in the left lower lobe or lingula, though suboptimally delineated on the lateral view. No acute findings in the right lung. Pulmonary vessels do not appear significantly congested. Pleural spaces: Unremarkable. No significant pleural effusion. No pneumothorax. Heart/Mediastinum: The cardiac silhouette is normal. Bones/joints: Mild anterior wedge compression deformities in the lower thoracic spine are chronic compared with previous exam from 11/27/2021. No new, acute fracture is seen in the interval. Mild degenerative disc narrowing and minimal spondylosis. The sternum is not well evaluated due to overlying shadows of the upper extremities. IMPRESSION: 1. 4 cm lenticular opacity projected over the lower left lung field, which could be small focus of atelectasis or pneumonia. 2. Additional nonemergency and chronic findings as above.
[2022-02-10 21:43] LABS: Basophils # 0.2 K/mm3 (0-0.2); Basophils % 1.8 % (0.1-2.0); Eosinophils # 0.4 K/mm3 (0.0-0.4); Eosinophils % 3.4 % (0.1-12.0); Hemoglobin 13.8 g/dL (14.1-18.0); Lymphocytes # 2.5 K/mm3 (0.7-4.5); Lymphocytes % 21.4 % (10-50); Mean Corpuscular HGB Conc 33.7 g/dL (31.8-35.4); Mean Corpuscular Hemoglobin 31.8 pg (27.0-31.2); Mean Corpuscular Volume 94.3 fl (80-94); Mean Platelet Volume 8.6 fl (7.4-10.4); Monocytes # 0.9 K/mm3 (0.1-1.0); Monocytes % 7.8 % (1.7-9.3); Neutrophils # 7.5 K/mm3 (1.8-7.8); Neutrophils % 65.7 % (37.0-80.0); Platelet Count 286 K/mm3 (142-424); Red Blood Count 4.35 M/mm3 (4.60-6.20); Red Cell Distribution Width 13.7 % (11.5-17.5); White Blood Count 11.5 K/mm3 (4.8-10.8)
[2022-02-10 21:54] LABS: Chloride 103 mmol/L (98-107); Sodium 136 mmol/L (136-145)
[2022-02-10 21:55] LABS: Potassium 3.9 mmoL/L (3.5-5.1)
[2022-02-10 21:58] LABS: Anion Gap 11.9 mEq/L (5-15); Blood Urea Nitrogen 9 mg/dl (9-20); Calcium 9.4 mg/dl (8.4-10.2); Carbon Dioxide 25 mmol/L (22.0-30.0); Creatinine Clearance Estimated 82 mL/min (50-200); Estimated Glomerular Filt Rate 65 ml/min (>60); GFR (African American) 79 ML/MIN (>60); Glucose 113 mg/dl (74-100)
[2022-02-10 22:00] VITALS: BP 125/81; PULSE 75; O2SAT 94
--- NOTE | 2022-02-10 22:01 | HMH.EDCP ---
ED Disposition Clinical Impression: Chest pain Qualifiers: Chest pain type: unspecified Qualified Code(s): R07.9 - Chest pain, unspecified Disposition: Home, Self-Care Condition on Discharge: Good Instructions: DI for Atypical Chest Pain Additional Instructions: see card next week Referrals: Dio Albarado APRN [Primary Care Provider] - - Critical Care Critical Care Time: No Attestation: On 02/10/22, the high probability of a clinically significant, sudden or life threatening deterioration of the following system(s) required my full and direct attention, intervention and personal management. The time I documented below is in addition to time spent performing reported procedures but includes the following listed in this critical care notation. Medical Decision Making - Medical Records Medical records reviewed: Yes: I reviewed the patient's medical records. - Jonathan Inquiry Pt receiving controlled substance: No Vital Signs: 02/10/22 21:31 02/10/22 22:00 02/10/22 22:30 Temperature 98.2 F Temperature Source Oral Pulse Rate 75 77 Pulse Rate [Right] 59 L Respiratory Rate 16 18 Blood Pressure 125/81 112/83 Blood Pressure [Right Arm] 115/41 L Blood Pressure Mean 90 Blood Pressure Mean [Right Arm] 65 02 Sat by Pulse Oximetry 99 94 L 93 L Oxygen Delivery Method Room Air 02/10/22 23:00 Temperature Temperature Source Pulse Rate 74 Pulse Rate [Right] Respiratory Rate 18 Blood Pressure 121/81 Blood Pressure [Right Arm] Blood Pressure Mean 89 Blood Pressure Mean [Right Arm] 02 Sat by Pulse Oximetry 93 L Oxygen Delivery Method - Lab Data Lab results reviewed: Yes: I reviewed the patient's lab results. Lab Results 02/10/22 21:28: WBC 11.5 H, RBC 4.35 L, Hgb 13.8 L, Hct 41.0 L, MCV 94.3 H, MCH 31.8 H, MCHC 33.7, RDW 13.7, Plt Count 286, MPV 8.6, Neut % (Auto) 65.7, Lymph % (Auto) 21.4, [place] % (Auto) 7.8, Eos % (Auto) 3.4, Baso % (Auto) 1.8, Neut # (Auto) 7.5, Lymph # (Auto) 2.5, [place] # (Auto) 0.9, Eos # (Auto) 0.4, Baso # (Auto) 0.2 02/10/22 21:28: Sodium 136, Potassium 3.9, Chloride 103, Carbon Dioxide 25, Anion Gap 11.9, BUN 9, Creatinine 1.20, Estimated Creat Clear 82, Estimated GFR 65, Est GFR ( Amer) 79, Glucose 113 H, Calcium 9.4, Troponin I < 0.01, NT-Pro-B Natriuret Pep 34.1 02/10/22 21:28: ESR 20 H 02/10/22 21:28: C-Reactive Protein 11.2 H, Procalcitonin 0.065 02/11/22 00:15: Troponin I < 0.01 Result diagrams: 02/10/22 21:28 02/10/22 21:28 Orders (Tests/Meds): ED MEDICATIONS Discontinued Medications Generic Name Dose Route Start Last Admin Trade Name Freq PRN Reason Stop Dose Admin Aspirin 243 mg 02/10/22 21:37 Aspirin 81mg Chewable Tablet PO 02/10/22 21:38 ONCE ONE Aspirin 243 mg 02/10/22 21:37 02/10/22 21:40 Aspirin 81mg Chewable Tablet PO 02/10/22 21:38 243 mg ONCE ONE Administration ORDERS Category Date Time Status Troponin I Q3H Lab 02/11/22 03:45 Ordered - Radiology Data #1 Image(s): Chest Image Reviewed: Yes I have reviewed radiologist's interpretation Preliminary Findings: Normal/NAD - ECG Data Tracing #1 Normal Sinus Rhythm: Yes Ischemic changes: non-specific ST-T wave changes Medical Decision Narrative: has known card dis with stable labs - will see card next week Chest Pain HPI - General Chief Complaint: Chest Pain Stated Complaint: CP Time Seen by Provider: 02/10/22 22:01 Mode of Arrival: EMS Source of Information: Patient, EMS, Medical Record Limitations: No Limitations Description of Symptoms (Recalled from ER Triage Doc. by RN): pt c/o sharp, achy chest pain that radiating down lt arm rating 5/10 that started 30 mins prior to arrival. pt states took long acting nitro prior arrival - History of Present Illness HPI narrative: reports chest pain with rad to upper ext and has known ht dis - also reported sedation from meds MD complaint: chest pain indicative of cardiac
[2022-02-10 22:06] LABS: NT Pro Brain Natriuretic Pep. 34.1 pg/mL (0-125)
[2022-02-10 22:13] LABS: Troponin I < 0.01 ng/ml (0.00-0.034)
[2022-02-10 22:22] LABS: C-Reactive Protein 11.2 mg/L (0-4)
[2022-02-10 22:30] VITALS: BP 112/83; PULSE 77; RESP 18; O2SAT 93
[2022-02-10 22:34] LABS: Erythrocyte Sedimentation Rate 20 mm/hr (0-15)
[2022-02-10 22:36] LABS: Procalcitonin 0.065 ng/mL (0.0-2.0)
[2022-02-10 23:00] VITALS: BP 121/81; PULSE 74; RESP 18; O2SAT 93
[2022-02-11 00:41] LABS: Troponin I < 0.01 ng/ml (0.00-0.034)
[2022-02-11 00:43] VITALS: BP 118/71; PULSE 74; RESP 17; TEMP 36.7; O2SAT 96
== END 2022-02-11 01:02 | disposition home or self-care (01) ==
PROVIDERS: Emergency Provider Emergency Medicine; PCP Nurse Practitioner Family
DX: R07.9 Chest pain, unspecified (principal); R06.09 Other forms of dyspnea; F41.8 Other specified anxiety disorders; K21.9 Gastro-esophageal reflux disease without esophagitis; I10 Essential (primary) hypertension; E78.5 Hyperlipidemia, unspecified; G43.709 Chronic migraine without aura, not intractable, without status migrainosus; Z87.891 Personal history of nicotine dependence; Z79.899 Other long term (current) drug therapy
CPT/HCPCS: 71046; 80048; 83880; 84145; 84484; 85025; 85651; 86140; 93005; 99283

== ENCOUNTER 2022-02-16 10:00 | Emergency (ER) | payer MEDICARE, MEDICAID, SELFPAY ==
[2022-02-16 11:19] VITALS: BP 0/0; PULSE 0; RESP 0; TEMP -17.7; TEMP 0
== END 2022-02-16 11:19 | disposition left against medical advice (07) ==
LOC: UTC 10:02
PROVIDERS: Emergency Provider Nurse Practitioner Family; PCP Nurse Practitioner Family
DX: Z53.21 Procedure and treatment not carried out due to patient leaving prior to being seen by health care provider

== ENCOUNTER → 2022-03-20 09:45 | Outpatient (CLI) | payer MEDICARE, MEDICAID, SELFPAY ==
--- NOTE | 2022-03-20 10:10 | XR_ITS ---
FINAL REPORT CLINICAL HISTORY: dyspnea, chest pain COMPARISON: February 10, 2022 FINDINGS: Two views of the chest were obtained. The heart size and pulmonary vascularity are within normal limits. The mediastinum is normal. There is improved left basilar opacity. There is no pneumothorax. The bony thorax is intact. IMPRESSION: Improved left basilar opacity. Reviewed, Interpreted and Dictated by Karlos Foss III, MD Transcribed by Zackery Maki Authenticated and [facility]
[2022-03-20 10:18] LABS: Basophils % 0.3 % (0.1-2.0); Eosinophils # 0.4 K/mm3 (0.0-0.4); Eosinophils % 3.6 % (0.1-12.0); Hematocrit 39.1 % (42.0-52.0); Hemoglobin 13.5 g/dL (14.1-18.0); Lymphocytes # 1.7 K/mm3 (0.7-4.5); Lymphocytes % 16.7 % (10-50); Mean Corpuscular HGB Conc 34.4 g/dL (31.8-35.4); Mean Corpuscular Hemoglobin 31.4 pg (27.0-31.2); Mean Corpuscular Volume 91.2 fl (80-94); Mean Platelet Volume 7.2 fl (7.4-10.4); Monocytes # 0.6 K/mm3 (0.1-1.0); Neutrophils # 7.6 K/mm3 (1.8-7.8); Neutrophils % 73.4 % (37.0-80.0); Platelet Count 284 K/mm3 (142-424); Red Blood Count 4.29 M/mm3 (4.60-6.20); Red Cell Distribution Width 14.2 % (11.5-17.5); White Blood Count 10.3 K/mm3 (4.8-10.8)
[2022-03-20 10:25] LABS: Alanine Aminotransferase 22 U/L (12-78); Albumin Level 3.8 g/dl (3.5-5.0); Alkaline Phosphatase 72 U/L (38-126); Aspartate Amino Transferase 25 U/L (17-59); Bilirubin,Indirect 0.2 mg/dL (0.0-0.9); Bilirubin,Total 0.2 mg/dl (0.2-1.3); Bilirubin,Unconjugated 0.5 mg/dL (0.0-1.1); Blood Urea Nitrogen 9 mg/dl (9-20); Calcium 9.1 mg/dl (8.4-10.2); Carbon Dioxide 26 mmol/L (22.0-30.0); Chloride 103 mmol/L (98-107); Chol/HDL Ratio 5.4 (1-3.5); Cholesterol 174 mg/dl (140-200); Estimated Glomerular Filt Rate 72 ml/min (>60); GFR (African American) 87 ML/MIN (>60); Glucose 95 mg/dl (74-100); HDL Cholesterol 32 mg/dl (40-60); Sodium 135 mmol/L (136-145); Total Protein,Serum 6.8 g/dl (6.3-8.2); Triglycerides 206 mg/dl (30-150); VLDL Cholesterol 41 mg/dL (0-40)
[2022-03-20 10:35] LABS: NT Pro Brain Natriuretic Pep. 48.9 pg/mL (0-125)
[2022-03-20 10:36] LABS: Direct LDL Cholesterol 94.41 mg/dL (100-129)
[2022-03-20 10:39] LABS: Troponin I < 0.01 ng/ml (0.00-0.034)
[2022-03-20 10:56] LABS: Thyroid Stimulating Hormone 2.59 uIU/mL (0.465-4.68)
[2022-03-20 11:10] LABS: Free T4 (Free Thyroxine) 0.94 ng/dl (0.78-2.19)
== END ==
PROVIDERS: PCP Nurse Practitioner Family; Visit Provider Nurse Practitioner Family
DX: J18.9 Pneumonia, unspecified organism (principal); R07.89 Other chest pain; E11.9 Type 2 diabetes mellitus without complications; I63.9 Cerebral infarction, unspecified; I11.0 Hypertensive heart disease with heart failure; I50.23 Acute on chronic systolic (congestive) heart failure; R06.01 Orthopnea; E66.01 Morbid (severe) obesity due to excess calories; I25.118 Atherosclerotic heart disease of native coronary artery with other forms of angina pectoris; R05.9 Cough, unspecified
CPT/HCPCS: 36415; 71046; 80048; 80061; 80076; 83880; 84439; 84443; 84484; 85025

== ENCOUNTER 2022-04-08 18:22 | Emergency (ER) | payer MEDICARE, MEDICAID, SELFPAY ==
[2022-04-08 18:23] VITALS: BP 121/80; PULSE 86; RESP 26; TEMP 37.1; O2SAT 94; BMI 44.1
--- NOTE | 2022-04-08 18:29 | HMH.EDGENADL ---
ED Disposition Condition on Discharge: Good - Critical Care Critical Care Time: No <Beny Cherry - Last Filed: 04/08/22 20:18> <Jorge Velasco - Last Filed: 04/08/22 22:44> Clinical Impression: Chest pain Qualifiers: Chest pain type: unspecified Qualified Code(s): R07.9 - Chest pain, unspecified Disposition: Home, Self-Care Instructions: DI for Atypical Chest Pain Additional Instructions: see card sunday Referrals: Jorge Velasco MD [Primary Care Provider] - Attestation: On 04/08/22, the high probability of a clinically significant, sudden or life threatening deterioration of the following system(s) required my full and direct attention, intervention and personal management. The time I documented below is in addition to time spent performing reported procedures but includes the following listed in this critical care notation. Medical Decision Making - Medical Records Medical records reviewed: Yes: I reviewed the patient's medical records. MR Comment: Reviewed most recent cardiology clinic note from 03/20/2022. Reviewed result of follow-up chest x-ray from that visit. Noted that he has a follow-up cardiology clinic visit scheduled for 04/11/2022. Reviewed cardiac cath results 11/30/2020, see below. Reviewed ER visit note 02/10/2022 for chest pain. - Jonathan Inquiry Pt receiving controlled substance: No - Lab Data Result diagrams: 04/08/22 18:31 04/08/22 18:31 - Radiology Data #1 Image(s): Chest Image Reviewed: Yes I reviewed the patient's radiology image, Yes I have reviewed radiologist's interpretation <Beny Cherry - Last Filed: 04/08/22 20:18> - Lab Data Result diagrams: 04/08/22 18:31 04/08/22 18:31 - CT Data CT Scan: Chest Time Received: 20:[address] Reviewed: Yes: I have viewed the radiologist's interpretation Preliminary Findings: Normal/NAD (no pul emboli) <Jorge Velasco - Last Filed: 04/08/22 22:44> Vital Signs: 04/08/22 18:23 04/08/22 21:54 Temperature 98.7 F 98.7 F Temperature Source Oral Pulse Rate 80 Pulse Rate [Radial] 86 Respiratory Rate 26 H 24 Blood Pressure 134/78 Blood Pressure [Right Arm] 121/80 Blood Pressure Mean [Right Arm] 93 Blood Pressure Position [Right Arm] Sitting 02 Sat by Pulse Oximetry 94 L Oxygen Delivery Method Room Air Room Air - Lab Data Lab Results 04/08/22 18:31: WBC 11.2 H, RBC 4.20 L, Hgb 13.0 L, Hct 40.7 L, MCV 97.0 H, MCH 31.1, MCHC 32.1, RDW 14.3, Plt Count 272, MPV 8.3, Neut % (Auto) 73.6, Lymph % (Auto) 16.4, [place] % (Auto) 5.4, Eos % (Auto) 3.2, Baso % (Auto) 1.4, Neut # (Auto) 8.2 H, Lymph # (Auto) 1.8, [place] # (Auto) 0.6, Eos # (Auto) 0.4, Baso # (Auto) 0.2 04/08/22 18:31: Sodium 135 L, Potassium 3.8, Chloride 102, Carbon Dioxide 21 L, Anion Gap 15.8 H, BUN 13, Creatinine 1.30 H, Estimated Creat Clear 75, Estimated GFR 59, Est GFR ( Amer) 72, Glucose 131 H, Calcium 9.2, Troponin I < 0.01 04/08/22 18:31: D-Dimer 0.81 H 04/08/22 19:03: SARS-CoV-2 (PCR) Not detected, Influenza A Untype (PCR) Not detected, Influenza Type B (PCR) Not detected 04/08/22 21:05: Troponin I < 0.01 Orders (Tests/Meds): ED MEDICATIONS Discontinued Medications Generic Name Dose Route Start Last Admin Trade Name Freq PRN Reason Stop Dose Admin Albuterol/Ipratropium 3 ml 04/08/22 18:40 04/08/22 18:41 Ipratropium/Albuterol 3 Ml Neb IH 04/08/22 18:41 3 ml ONCE ONE Administration Aspirin 243 mg 04/08/22 18:41 04/08/22 18:42 Aspirin 81mg Chewable Tablet PO 04/08/22 18:42 243 mg ONCE ONE Administration Iopamidol 70 ml 04/08/22 19:56 04/08/22 19:58 Iopamidol-370 (76%);100ml Bottle IV 04/08/22 19:57 70 ml ONCE ONE Administration Ketorolac Tromethamine 30 mg 04/08/22 21:06 04/08/22 21:12 Ketorolac 30mg/Ml Vial IV 04/08/22 21:07 30 mg ONCE ONE Administration Sodium Chloride 40 ml 04/08/22 19:56 04/08/22 19:57 0.9 % Sodium Chloride 50 Ml Vial IV 04/08/22 19:57 40 ml ONC
--- NOTE | 2022-04-08 18:34 | ECG_ITS ---
APPROVED REPORT Exam: Resting ECG HR:86 bpm ECG Measurements Heart Rate 86 AXES WI 189 P 46 QRSd 94 QRS 16 QT 408 T 51 QTc 451 Conclusion SINUS RHYTHM INFERIOR MYOCARDIAL INFARCTION , PROBABLY OLD [40+ ms Q WAVE AND/OR ST/T ABNORMALITY IN II/aVF] PROBABLE ANTEROLATERAL MYOCARDIAL INFARCTION , PROBABLY OLD [35 ms Q WAVE IN I/aVL/V3-V6] ABNORMAL ECG UNCONFIRMED REPORT Electronically signed by : Carlos Noland MD 04/10/2022 21:32:06
--- NOTE | 2022-04-08 18:35 | XR_ITS ---
PROCEDURE INFORMATION: Exam: XR Chest Exam date and time: 04/08/2022 6:35 PM Age: 47 years old Clinical indication: Shortness of breath; Chest wall pain and left-sided; Additional info: Lt sided chest pain x 1 wk, worsened today. SOA w tightness. Smoker TECHNIQUE: Imaging protocol: Radiologic exam of the chest. Views: 1 view. COMPARISON: CR XR CHEST 2V 03/20/2022 10:19 AM FINDINGS: Lungs: Mild elevation of the hemidiaphragms secondary to inadequate inspiratory effort. Superimposed regions of parenchymal scarring left lung base. Could not exclude subsegmental atelectasis. Pleural spaces: Unremarkable. No pleural effusion. No pneumothorax. Heart/Mediastinum: Unremarkable. No cardiomegaly. Bones/joints: Unremarkable. IMPRESSION: Regions of parenchymal scarring versus subsegmental atelectasis left lung base.
[2022-04-08 18:39] LABS: Basophils # 0.2 K/mm3 (0-0.2); Basophils % 1.4 % (0.1-2.0); Eosinophils # 0.4 K/mm3 (0.0-0.4); Eosinophils % 3.2 % (0.1-12.0); Hematocrit 40.7 % (42.0-52.0); Lymphocytes # 1.8 K/mm3 (0.7-4.5); Lymphocytes % 16.4 % (10-50); Mean Corpuscular HGB Conc 32.1 g/dL (31.8-35.4); Mean Corpuscular Hemoglobin 31.1 pg (27.0-31.2); Mean Platelet Volume 8.3 fl (7.4-10.4); Monocytes # 0.6 K/mm3 (0.1-1.0); Monocytes % 5.4 % (1.7-9.3); Neutrophils # 8.2 K/mm3 (1.8-7.8); Neutrophils % 73.6 % (37.0-80.0); Platelet Count 272 K/mm3 (142-424); Red Cell Distribution Width 14.3 % (11.5-17.5); White Blood Count 11.2 K/mm3 (4.8-10.8)
[2022-04-08 18:42] LABS: Chloride 102 mmol/L (98-107)
[2022-04-08 18:43] LABS: Potassium 3.8 mmoL/L (3.5-5.1); Sodium 135 mmol/L (136-145)
[2022-04-08 18:45] LABS: Blood Urea Nitrogen 13 mg/dl (9-20); Creatinine Clearance Estimated 75 mL/min (50-200); Estimated Glomerular Filt Rate 59 ml/min (>60); GFR (African American) 72 ML/MIN (>60)
[2022-04-08 18:46] LABS: Anion Gap 15.8 mEq/L (5-15); Calcium 9.2 mg/dl (8.4-10.2); Carbon Dioxide 21 mmol/L (22.0-30.0); Glucose 131 mg/dl (74-100)
[2022-04-08 18:59] LABS: Troponin I < 0.01 ng/ml (0.00-0.034)
[2022-04-08 19:08] LABS: D-Dimer 0.81 ug/mL (0.0-0.5)
--- NOTE | 2022-04-08 19:16 | CT_ITS ---
PROCEDURE INFORMATION: Exam: CTA Chest With Contrast Exam date and time: 04/08/22 07:22 PM Age: 47 years old Clinical indication: Shortness of breath and other: Elevated d dimer chest pain; Additional info: Cp, SOA, elev d-dimer, R/O pe TECHNIQUE: Imaging protocol: Computed tomographic angiography of the chest with contrast. 3D rendering (Not supervised by radiologist): MIP and/or 3D reconstructed images were created by the technologist. Radiation optimization: All CT scans at this facility use at least one of these dose optimization techniques: automated exposure control; mA and/or kV adjustment per patient size (includes targeted exams where dose is matched to clinical indication); or iterative reconstruction. Contrast material: ISOVUE 370; Contrast volume: 70 ml; Contrast route: INTRAVENOUS (IV); COMPARISON: CT ANGIO CHEST 05/07/20 09:47 PM FINDINGS: Pulmonary arteries: No large central pulmonary emboli identified. Motion artifact degrades the evaluation of the peripheral pulmonary vessels. Aorta: Unremarkable. No aortic aneurysm. No aortic dissection. Lungs: Patchy left lower lobe atelectasis and infiltrate. Pleural spaces: Unremarkable. No pneumothorax. No pleural effusion. Heart: Unremarkable. No cardiomegaly. No pericardial effusion. Lymph nodes: Unremarkable. No enlarged lymph nodes. Bones/joints: Unremarkable. No acute fracture. Soft tissues: Unremarkable. IMPRESSION: 1. Patchy left lower lobe atelectasis and infiltrate. 2. Motion artifact limits evaluation of the peripheral pulmonary vessels. No large central pulmonary emboli identified.
[2022-04-08 19:20] LABS: Coronavirus 19, PCR Not Detected (NotDetected); Influenza A, PCR Not Detected (NotDetected); Influenza B, PCR Not Detected (NotDetected)
[2022-04-08 21:47] LABS: Troponin I < 0.01 ng/ml (0.00-0.034)
[2022-04-08 21:54] VITALS: BP 134/78; PULSE 80; RESP 24; TEMP 37.1; O2SAT 95
== END 2022-04-08 21:54 | disposition home or self-care (01) ==
PROVIDERS: Emergency Provider Emergency Medicine; PCP Emergency Medicine
DX: R07.9 Chest pain, unspecified (principal); Z79.899 Other long term (current) drug therapy; I10 Essential (primary) hypertension; E78.5 Hyperlipidemia, unspecified; G43.909 Migraine, unspecified, not intractable, without status migrainosus; F41.9 Anxiety disorder, unspecified; J45.909 Unspecified asthma, uncomplicated; F32.A Depression, unspecified; K21.9 Gastro-esophageal reflux disease without esophagitis; Z90.49 Acquired absence of other specified parts of digestive tract; Z87.891 Personal history of nicotine dependence
CPT/HCPCS: 71045; 71275; 80048; 84484; 85025; 85378; 93005; 94640; 96374; 99284; C9803; Q9967; U0003; U0005

== ENCOUNTER → 2022-07-26 08:57 | Outpatient (CLI) | payer MEDICARE, OTHER, SELFPAY ==
[2022-07-26 09:47] LABS: Basophils # 0.1 K/mm3 (0-0.2); Basophils % 0.8 % (0.1-2.0); Eosinophils # 0.4 K/mm3 (0.0-0.4); Eosinophils % 4.4 % (0.1-12.0); Hematocrit 39.4 % (42.0-52.0); Lymphocytes # 1.7 K/mm3 (0.7-4.5); Lymphocytes % 21.7 % (10-50); Mean Corpuscular HGB Conc 33.1 g/dL (31.8-35.4); Mean Corpuscular Volume 93.6 fl (80-94); Mean Platelet Volume 8.1 fl (7.4-10.4); Monocytes # 0.4 K/mm3 (0.1-1.0); Monocytes % 5.6 % (1.7-9.3); Neutrophils # 5.3 K/mm3 (1.8-7.8); Neutrophils % 67.5 % (37.0-80.0); Platelet Count 274 K/mm3 (142-424); Red Blood Count 4.21 M/mm3 (4.60-6.20); Red Cell Distribution Width 13.5 % (11.5-17.5); White Blood Count 7.8 K/mm3 (4.8-10.8)
[2022-07-26 10:53] LABS: Chloride 103 mmol/L (98-107); Potassium 4.4 mmoL/L (3.5-5.1); Sodium 139 mmol/L (136-145)
[2022-07-26 10:55] LABS: Blood Urea Nitrogen 14 mg/dl (9-20); Estimated Glomerular Filt Rate 59 ml/min (>60); GFR (African American) 72 ML/MIN (>60)
[2022-07-26 10:56] LABS: Alanine Aminotransferase 18 U/L (12-78); Albumin Level 3.7 g/dl (3.5-5.0); Alkaline Phosphatase 91 U/L (38-126); Anion Gap 14.4 mEq/L (5-15); Aspartate Amino Transferase 22 U/L (17-59); Bilirubin,Direct 0.2 mg/dl (0.0-0.4); Bilirubin,Indirect 0.2 mg/dL (0.0-0.9); Bilirubin,Total 0.4 mg/dl (0.2-1.3); Bilirubin,Unconjugated 0.1 mg/dL (0.0-1.1); Calcium 8.7 mg/dl (8.4-10.2); Carbon Dioxide 26 mmol/L (22.0-30.0); Cholesterol 109 mg/dl (140-200); Glucose 98 mg/dl (74-100); Total Protein,Serum 6.2 g/dl (6.3-8.2); Triglycerides 133 mg/dl (30-150); VLDL Cholesterol 27 mg/dL (0-40)
[2022-07-26 10:57] LABS: Chol/HDL Ratio 3.5 (1-3.5); HDL Cholesterol 31 mg/dl (40-60); Magnesium 1.9 mg/dl (1.6-2.3)
[2022-07-26 11:08] LABS: Direct LDL Cholesterol 52.52 mg/dL (100-129)
[2022-07-26 11:13] LABS: Free T4 (Free Thyroxine) 0.92 ng/dl (0.78-2.19)
[2022-07-26 11:28] LABS: Thyroid Stimulating Hormone 2.34 uIU/mL (0.465-4.68)
== END ==
PROVIDERS: PCP Nurse Practitioner Family; Visit Provider Nurse Practitioner
DX: E78.2 Mixed hyperlipidemia (principal); I10 Essential (primary) hypertension; R07.9 Chest pain, unspecified; R60.0 Localized edema; Z01.810 Encounter for preprocedural cardiovascular examination
CPT/HCPCS: 36415; 80048; 80061; 80076; 83735; 84439; 84443; 85025

== ENCOUNTER → 2022-08-01 10:37 | Outpatient (CLI) | payer MEDICARE, OTHER, SELFPAY ==
--- NOTE | 2022-08-01 10:41 | CA_ITS ---
APPROVED REPORT EXAM: Comprehensive 2D, Doppler, and color-flow Echocardiogram Barrel Tester: REBEKAH Llanes, RVS Ht: 5 ft 11 in Wt: 328lbs BSA: 2.60 BP: 104/58 mmHg Indications: cad, cp, preop gastric sleeve, ex smoker, HTN, HLD, Obesity 2D Dimensions Aortic Root 2.91 cm LA Volume 49.40 mL Left Atrium 4.08 cm LA Volume Index 19.337147 mL/m2 (M/F) 16-34 LVOT 2.12 cm (M/F) 1.5-2.5 M-Mode Dimensions RVDd 3.74 cm (0.9-2.6) LA Diam 4.33 cm (1.9-4.0) LVDd 5.61 cm (3.5-5.7) Ao Diam 3.44 cm (2.0-3.7) LVDs 3.99 cm (3.5-5.7) IVSd 1.15 cm (0.6-1.1) PWd 0.93 cm (0.6-1.1) EF (Teich) 54.90% EPSs 0.34 cm FS 28.90% EDV (Teich) 154.30 mL TAPSE 2.27 (<1.7) ESV (Teich) 69.60 mL LV Diastology E Decel Time 247.00 (160-240 msec) E/A Ratio 1.33 MED E' 6.00 (< 7 cm/sec) MED A' 9.40 cm/s E'/MED E' Ratio 12.50 (>14) LAT E' 6.20 (<10 cm/sec) LAT A' 9.30 cm/s E/LAT E' Ratio 12.10 (>14) Aortic Valve LVOT Max 114.00 (70-110 cm/s) LVOT VTI 21.18 cm AoV Peak Moiz. 144.00 (50-130 cm/s) AO Peak GR. 8.20 mmHg AO Mean GR. 4.10 (<5 mmHg) AO VTI 27.82 (18-25 cm) GERMAIN (VTI) 2.69 (2.5-4.5 cm2) Mitral Valve MV A Velocity 56.00 (40-130 cm/s) E/A Ratio 1.33 MV Decel. Time 247.00 (160-240 ms) MV Mean Gr. 1.30 (<2mmHg) MV PHT 73.00 ms Pulmonary Valve PV Peak Velocity 117.00 (50-150 cm/s) MN End VMAX 155.00 cm/s Tricuspid Valve TR P. Velocity 246.00 cm/s RAP Estimate 10.00 mmHg RVSP 34.20 mmHg Left Ventricle Left atrium is mildly enlarged, left ventricle is normal size mild concentric left ventricular hypertrophy, estimated ejection fraction 55% with no regional wall motion abnormality, diastolic parameters are inconclusive. Right Ventricle Right atrium and right ventricle are mildly enlarged with normal contractility. Aortic Valve Aortic valve is minimally thickened and fibrosed there is no aortic stenosis or aortic insufficiency. Mitral Valve Mitral valve grossly normal, there is trace mitral regurgitation. Tricuspid Valve Tricuspid valve grossly normal, there is trace tricuspid regurgitation, tricuspid regurgitation jet velocity is inadequate for calculation of the right ventricular systolic pressure. Pulmonic Valve Pulmonic valve is poorly visualized. Great Vessels Reviewed is normal size. Inferior vena cava is poorly visualized. Pericardium No significant pericardial effusion noted. Conclusion 1. Mild biatrial enlargement, normal left ventricular size, mild concentric left ventricular hypertrophy, estimated ejection fraction 55% with no regional wall motion abnormality, diastolic parameters are inconclusive. 2. Mildly enlarged right ventricle with normal contractility. 3. Trace mitral and tricuspid regurgitation. 4. No significant pericardial effusion noted. 5. Inferior vena cava is poorly visualized. Electronically signed by : Siddharth Cisneros MD 08/01/2022 20:20:31
== END ==
PROVIDERS: PCP Nurse Practitioner Family; Visit Provider Nurse Practitioner Family
DX: E66.9 Obesity, unspecified (principal); E78.2 Mixed hyperlipidemia; I50.32 Chronic diastolic (congestive) heart failure; K21.9 Gastro-esophageal reflux disease without esophagitis; N28.9 Disorder of kidney and ureter, unspecified; R07.9 Chest pain, unspecified; R60.0 Localized edema; Z01.810 Encounter for preprocedural cardiovascular examination; I11.0 Hypertensive heart disease with heart failure; Z68.42 Body mass index [BMI] 45.0-49.9, adult
CPT/HCPCS: 93306

== ENCOUNTER 2022-10-31 18:44 | Emergency (ER) | payer MEDICARE, OTHER, SELFPAY ==
[2022-10-31] VITALS (9 sets, daily range): BP systolic 107–143; BP diastolic 70–87; PULSE 70–82; RESP 16–20; TEMP 36.6–36.9; O2SAT 95–98; BMI 41.8
--- NOTE | 2022-10-31 18:48 | ECG_ITS ---
APPROVED REPORT Exam: Resting ECG HR:76 bpm ECG Measurements Heart Rate 76 AXES [place] 176 P 44 QRSd 104 QRS 19 QT 411 T 52 QTc 441 Conclusion SINUS RHYTHM LOW QRS VOLTAGE IN PRECORDIAL LEADS Old inferior Qwaves and late r wave progression ABNORMAL ECG UNCONFIRMED REPORT Electronically signed by : Carlos Noland MD 11/01/2022 17:41:45
--- NOTE | 2022-10-31 18:50 | XR_ITS ---
PROCEDURE INFORMATION: Exam: XR Chest Exam date and time: 10/31/2022 7:24 PM Age: 47 years old Clinical indication: Pain; Angina pectoris; Additional info: Chest pain; Cardiology HX TECHNIQUE: Imaging protocol: Radiologic exam of the chest. Views: 2 views. COMPARISON: CR XR CHEST PORTABLE 04/08/2022 6:35 PM FINDINGS: Lungs: Unchanged left lower lobe scarring or atelectasis. Right lung is clear. No new consolidation. Pleural spaces: Unremarkable. No pleural effusion. No pneumothorax. Heart/Mediastinum: Unremarkable. No cardiomegaly. Bones/joints: Unremarkable. IMPRESSION: No acute disease.
--- NOTE | 2022-10-31 18:57 | PC.NURSE ---
DR KIRKLAND AT BEDSIDE
--- NOTE | 2022-10-31 18:58 | CT_ITS ---
PROCEDURE INFORMATION: Exam: CTA Chest With Contrast Exam date and time: 10/31/2022 7:33 PM Age: 47 years old Clinical indication: Pain; Angina pectoris; Additional info: Concern for aortic dissection TECHNIQUE: Imaging protocol: Computed tomographic angiography of the chest with contrast. 3D rendering (Not supervised by radiologist): MIP and/or 3D reconstructed images were created by the technologist. Radiation optimization: All CT scans at this facility use at least one of these dose optimization techniques: automated exposure control; mA and/or kV adjustment per patient size (includes targeted exams where dose is matched to clinical indication); or iterative reconstruction. Contrast material: ISOVUE 370; Contrast volume: 100 ml; Contrast route: INTRAVENOUS (IV); Other protocol: This patient has received 2 known CTs and 0 known cardiac nuclear medicine studies in the 12 months prior to the current study. COMPARISON: CT ANGIO CHEST PE PROTOCOL 04/08/2022 7:22 PM FINDINGS: Pulmonary arteries: Normal. No pulmonary emboli. Aorta: Unremarkable. No aortic aneurysm. No aortic dissection. Lungs: Left lower lobe calcified granuloma, unchanged. Left lower lobe scarring or atelectasis is not significantly changed with 04/08/2022 CT scan. No new consolidation. Probable linear scar anterior right upper lobe series 5, image 54, unchanged. Pleural spaces: Unremarkable. No pneumothorax. No pleural effusion. Heart: Unremarkable. No cardiomegaly. No pericardial effusion. Lymph nodes: Calcified lymph nodes in the left hilum unchanged, consistent with old granulomatous disease. Bones/joints: Unremarkable. No acute fracture. Soft tissues: Unremarkable. IMPRESSION: 1. Negative CTA of the chest. 2. Left lower lobe scarring or atelectasis, unchanged since 04/08/2022. No new pulmonary consolidation.
--- NOTE | 2022-10-31 18:58 | CT_ITS ---
PROCEDURE INFORMATION: Exam: CTA Abdomen and Pelvis With Contrast Exam date and time: 10/31/2022 7:33 PM Age: 47 years old Clinical indication: Other: Concern for dissection TECHNIQUE: Imaging protocol: Computed tomographic angiography of the abdomen and pelvis with contrast. 3D rendering (Not supervised by radiologist): MIP and/or 3D reconstructed images were created by the technologist. Radiation optimization: All CT scans at this facility use at least one of these dose optimization techniques: automated exposure control; mA and/or kV adjustment per patient size (includes targeted exams where dose is matched to clinical indication); or iterative reconstruction. Contrast material: ISOVUE 370; Contrast volume: 100 ml; Contrast route: INTRAVENOUS (IV); Other protocol: This patient has received 2 known CTs and 0 known cardiac nuclear medicine studies in the 12 months prior to the current study. COMPARISON: 1. CT ABDOMEN PELVIS W CON 05/29/2020 12:[address] ANGIO CHEST PE PROTOCOL 04/08/2022 7:[address] ANGIO CHEST 10/31/2022 7:33 PM FINDINGS: Lungs: Left lower lobe scarring or atelectasis is similar to comparison chest CT 04/08/2022. Aorta: No aortic aneurysm. No aortic dissection. Celiac trunk and mesenteric arteries: No occlusion or significant stenosis. Renal arteries: No occlusion or significant stenosis. Right iliac arteries: No occlusion or significant stenosis. Left iliac arteries: No occlusion or significant stenosis. Liver: No mass. Gallbladder and bile ducts: Unremarkable. No calcified stones. No ductal dilation. Pancreas: Unremarkable. No mass. No ductal dilation. Spleen: Unremarkable. No splenomegaly. Adrenal glands: Unremarkable. No mass. Kidneys and ureters: Subcentimeter bilateral renal cysts, too small to characterize. Stomach and bowel: Unremarkable. No obstruction. No mucosal thickening. Appendix: No evidence of appendicitis. Intraperitoneal space: Unremarkable. No free air. No significant fluid collection. Lymph nodes: Unremarkable. No enlarged lymph nodes. Urinary bladder: Unremarkable. No mass. Reproductive: Unremarkable as visualized. Bones/joints: Mild L2 superior endplate compression deformity is unchanged. No associated bony retropulsion. No acute osseous injury. Soft tissues: Small-sized fat containing umbilical hernia. IMPRESSION: Negative CTA of the abdomen/pelvis.
[2022-10-31 19:02] LABS: Basophils # 0.1 K/mm3 (0-0.2); Basophils % 1.2 % (0.1-2.0); Eosinophils # 0.5 K/mm3 (0.0-0.4); Eosinophils % 3.9 % (0.1-12.0); Hematocrit 38.7 % (42.0-52.0); Hemoglobin 13.5 g/dL (14.1-18.0); Lymphocytes % 25.5 % (10-50); Mean Corpuscular HGB Conc 34.9 g/dL (31.8-35.4); Mean Corpuscular Hemoglobin 31.1 pg (27.0-31.2); Mean Platelet Volume 7.8 fl (7.4-10.4); Monocytes # 0.6 K/mm3 (0.1-1.0); Monocytes % 5.3 % (1.7-9.3); Neutrophils # 7.5 K/mm3 (1.8-7.8); Neutrophils % 64.3 % (37.0-80.0); Platelet Count 313 K/mm3 (142-424); Red Blood Count 4.35 M/mm3 (4.60-6.20); Red Cell Distribution Width 13.7 % (11.5-17.5); White Blood Count 11.6 K/mm3 (4.8-10.8)
[2022-10-31 19:13] LABS: Chloride 103 mmol/L (98-107); Potassium 4.1 mmoL/L (3.5-5.1); Sodium 140 mmol/L (136-145)
[2022-10-31 19:16] LABS: Blood Urea Nitrogen 16 mg/dl (9-20); Creatinine Clearance Estimated 69 mL/min (50-200); Estimated Glomerular Filt Rate 54 ml/min (>60); GFR (African American) 66 ML/MIN (>60)
[2022-10-31 19:17] LABS: Anion Gap 13.1 mEq/L (5-15); Carbon Dioxide 28 mmol/L (22.0-30.0); Glucose 111 mg/dl (74-100)
[2022-10-31 19:19] LABS: Coronavirus 19, PCR Not Detected (NotDetected); Influenza A, PCR Not Detected (NotDetected); Influenza B, PCR Not Detected (NotDetected)
[2022-10-31 19:27] LABS: NT Pro Brain Natriuretic Pep. 23.1 pg/mL (0-125)
[2022-10-31 19:33] LABS: Troponin I < 0.01 ng/ml (0.00-0.034)
--- NOTE | 2022-10-31 19:34 | PC.NURSE ---
pt going to scan at this time
--- NOTE | 2022-10-31 19:41 | HMH.EDGENADL ---
Discharge Plan Disposition Patient Disposition: Home, Self-Care Condition: Good Prescriptions Prescriptions: No Action cyclobenzaprine 10 mg tablet 10 mg PO TID PRN (Reason: muscle spasm) Qty: 60 0RF atorvastatin 40 mg tablet See Rx Instructions .ROUTE .COMPLEX Qty: 90 2RF Dose Instruction: TAKE 1 TABLET BY MOUTH ONCE DAILY AT BEDTIME FOR CHOLESTEROL Rx Instructions: TAKE 1 TABLET BY MOUTH ONCE DAILY AT BEDTIME FOR CHOLESTEROL furosemide 40 mg tablet 60 mg PO DAILY 90 Days Qty: 135 2RF isosorbide mononitrate 120 mg tablet extended release 24 hr 120 mg PO DAILY Qty: 90 2RF spironolactone 100 mg tablet 100 mg PO DAILY Qty: 90 2RF ranolazine 1,000 mg tablet extended release 12 hr 1,000 mg PO BID Qty: 180 2RF omeprazole 40 mg capsule,delayed release(DR/EC) 40 mg PO DAILY Qty: 90 2RF aspirin 81 mg tablet,chewable 81 mg PO DAILY Qty: 90 2RF fluticasone propionate 50 mcg/actuation spray,suspension 1 spray INTRANASAL DAILY Qty: 9.9 2RF Trelegy Ellipta 200-62.5-25 mcg blister with device 1 inh INHALATION DAILY 90 Days Qty: 90 3RF ipratropium-albuterol 0.5 mg-3 mg(2.5 mg base)/3 mL solution for nebulization 3 ml IH Q6H PRN (Reason: shortness of breath or wheezing) Qty: 90 3RF gabapentin 800 mg tablet 800 mg PO BID 30 Days Qty: 60 2RF albuterol sulfate 90 mcg/actuation HFA aerosol inhaler 2 puff INHALATION Q4-6H PRN (Reason: SOA) Qty: 8.5 2RF fluoxetine 40 mg capsule 40 mg PO DAILY Qty: 30 2RF trazodone 50 mg tablet 50 mg PO QHS PRN (Reason: sleep) Qty: 30 1RF risperidone 1 mg tablet 1 mg PO BID Qty: 60 1RF metoprolol succinate 25 mg tablet extended release 24 hr See Rx Instructions .ROUTE .COMPLEX Qty: 90 2RF Dose Instruction: TAKE 1 TABLET BY MOUTH ONCE DAILY FOR HIGH BLOOD PRESSURE Rx Instructions: TAKE 1 TABLET BY MOUTH ONCE DAILY FOR HIGH BLOOD PRESSURE montelukast 10 MG tablet 10 mg PO DAILY azelastine 205.5 MCG/0.137 ML spray,non-aerosol 2 spray INTRANASAL HS Rx Instructions: administer into each nostril Referrals Follow up/Referrals: Dio Albarado APRN [Primary Care Provider] - See instructions Clinical Impressions Clinical Impression: Chest pain Instructions Patient Instructions: DI for Atypical Chest Pain Discharge ED Provider: Jorge Velasco General Adult HPI General Chief complaint: Chest Pain Stated complaint: CP Time Seen by Provider: 10/31/22 18:47 Mode of Arrival: Ambulatory Source of Information: Patient and Spouse Limitations: No Limitations Description of Symptoms (Recalled from ER Triage Doc. by RN): Pt reports he was on the phone just talking to his sister at 1820 when he suddenly experienced chest pain which subsequently decreased followed by a severe headache that continues and a feeling of being cold all over; History of Present Illness HPI narrative: Patient is a 47-year-old male past medical history of CAD, hypertension, hyperlipidemia, CHF, GERD who presents with concern for chest pain. He says that he was talking on the phone earlier today around 1820 when he started to get cute onset of chest pain. He locates it on the left side of his chest. It does not radiate from there. He says that he also started to get a headache during that time as well as feeling cold. He denies any numbness or tingling into his arms. He does endorse a little bit of numbness that goes into his left leg. He says that he feels short of breath. He also notes that his pain is worse when he lies flat and better when he lies forward. Denies any nausea. Denies any sputum production. Related Data Home Medications Medication Instructions Recorded Confirmed azelastine 205.5 mcg (0.15 %) 2 spray intranasal HS Breathing 11/27/21 10/18/22 nasal spray problems montelukast 10 mg tablet 10 mg PO DAILY Breathing problems 11/27/21 10/18/22 Previous Rx's Medication Ins
--- NOTE | 2022-10-31 19:46 | PC.NURSE ---
pt back in room
[2022-10-31 20:07] LABS: INR 0.93 (0.9-1.1); Prothrombin Time 10.1 seconds (10.1-12.5)
[2022-10-31 22:05] LABS: Troponin I < 0.01 ng/ml (0.00-0.034)
== END 2022-10-31 22:22 | disposition home or self-care (01) ==
PROVIDERS: Student in an Organized Health Care Education/Training Program; Emergency Provider Emergency Medicine; PCP Nurse Practitioner Family
DX: R07.89 Other chest pain (principal); I25.10 Atherosclerotic heart disease of native coronary artery without angina pectoris; I50.9 Heart failure, unspecified; E78.5 Hyperlipidemia, unspecified; I11.0 Hypertensive heart disease with heart failure; K21.9 Gastro-esophageal reflux disease without esophagitis; Z86.16 Personal history of COVID-19; F33.9 Major depressive disorder, recurrent, unspecified; Z83.3 Family history of diabetes mellitus; Z83.42 Family history of familial hypercholesterolemia; Z82.49 Family history of ischemic heart disease and other diseases of the circulatory system; Z20.822 Contact with and (suspected) exposure to COVID-19
CPT/HCPCS: 71046; 71275; 74174; 80048; 83880; 84484; 85025; 85610; 86850; 93005; 96361; 96374; 96375; 99285; C9803; J2405; Q9967; U0003; U0005

== ENCOUNTER 2022-12-10 22:52 | Emergency (ER) | payer MEDICARE, OTHER, SELFPAY ==
[2022-12-10 22:52] VITALS: BP 123/66; PULSE 67; RESP 23; TEMP 36.6; O2SAT 95; BMI 46.0
[2022-12-10 23:01] VITALS: BMI 46.0
--- NOTE | 2022-12-10 23:01 | ECG_ITS ---
APPROVED REPORT Exam: Resting ECG HR:64 bpm ECG Measurements Heart Rate 64 AXES LA 209 P 41 QRSd 101 QRS 54 QT 450 T 51 QTc 460 Conclusion SINUS RHYTHM Old inferior RI and poor r wave progression Previously noted UNCONFIRMED REPORT Electronically signed by : Carlos Noland MD 12/11/2022 21:03:02
--- NOTE | 2022-12-10 23:01 | XR_ITS ---
PROCEDURE INFORMATION: Exam: XR Chest Exam date and time: 12/10/2022 11:06 PM Age: 47 years old Clinical indication: Pain; Chest pressure; Additional info: Chest pain TECHNIQUE: Imaging protocol: Radiologic exam of the chest. Views: 2 views. COMPARISON: CR XR CHEST 2V 10/31/2022 7:24 PM FINDINGS: Lungs: Unremarkable. No consolidation. Persistent bandlike densities of the left lower lobe consistent with scarring. Pleural spaces: Unremarkable. No pleural effusion. No pneumothorax. Heart/Mediastinum: Unremarkable. No cardiomegaly. Vasculature: Unremarkable. Bones/joints: Unremarkable. IMPRESSION: No acute findings.
--- NOTE | 2022-12-10 23:05 | PC.NURSE ---
Dr. Velasco at BS speaking with pt
[2022-12-10 23:12] VITALS: BP 112/61; PULSE 63; RESP 19; O2SAT 96
--- NOTE | 2022-12-10 23:13 | PC.NURSE ---
patient gone to RAD at this.
[2022-12-10 23:17] LABS: Basophils # 0.1 K/mm3 (0-0.2); Basophils % 1.2 % (0.1-2.0); Eosinophils # 0.4 K/mm3 (0.0-0.4); Eosinophils % 3.8 % (0.1-12.0); Hematocrit 37.2 % (42.0-52.0); Hemoglobin 12.7 g/dL (14.1-18.0); Lymphocytes # 3.3 K/mm3 (0.7-4.5); Lymphocytes % 29.6 % (10-50); Mean Corpuscular HGB Conc 34.1 g/dL (31.8-35.4); Mean Corpuscular Hemoglobin 30.5 pg (27.0-31.2); Mean Corpuscular Volume 89.3 fl (80-94); Mean Platelet Volume 8.2 fl (7.4-10.4); Monocytes # 0.5 K/mm3 (0.1-1.0); Monocytes % 4.8 % (1.7-9.3); Neutrophils # 6.7 K/mm3 (1.8-7.8); Neutrophils % 60.6 % (37.0-80.0); Platelet Count 254 K/mm3 (142-424); Red Blood Count 4.16 M/mm3 (4.60-6.20); Red Cell Distribution Width 13.6 % (11.5-17.5)
--- NOTE | 2022-12-10 23:18 | PC.NURSE ---
patient back in room at this time.
[2022-12-10 23:21] LABS: Alanine Aminotransferase 20 U/L (12-78); Albumin Level 3.9 g/dl (3.5-5.0); Alkaline Phosphatase 68 U/L (38-126); Amylase 43 U/L (30-110); Anion Gap 8.9 mEq/L (5-15); Aspartate Amino Transferase 33 U/L (17-59); Bilirubin,Direct 0.3 mg/dl (0.0-0.4); Bilirubin,Indirect 0.1 mg/dL (0.0-0.9); Bilirubin,Total 0.4 mg/dl (0.2-1.3); Bilirubin,Unconjugated 0.1 mg/dL (0.0-1.1); Blood Urea Nitrogen 13 mg/dl (9-20); Calcium 8.4 mg/dl (8.4-10.2); Carbon Dioxide 27 mmol/L (22.0-30.0); Chloride 102 mmol/L (98-107); Creatinine Clearance Estimated 75 mL/min (50-200); Estimated Glomerular Filt Rate 59 ml/min (>60); GFR (African American) 72 ML/MIN (>60); Glucose 131 mg/dl (74-100); Lipase 70 U/L (23-300); Magnesium 2.1 mg/dl (1.6-2.3); Potassium 3.9 mmoL/L (3.5-5.1); Sodium 134 mmol/L (136-145); Total Protein,Serum 6.7 g/dl (6.3-8.2)
--- NOTE | 2022-12-10 23:24 | CT_ITS ---
PROCEDURE INFORMATION: Exam: CT Abdomen And Pelvis With Contrast Exam date and time: 12/10/2022 11:51 PM Age: 47 years old Clinical indication: Abdominal pain; Additional info: Luq abd pain, tenderness TECHNIQUE: Imaging protocol: Computed tomography of the abdomen and pelvis with contrast. Radiation optimization: All CT scans at this facility use at least one of these dose optimization techniques: automated exposure control; mA and/or kV adjustment per patient size (includes targeted exams where dose is matched to clinical indication); or iterative reconstruction. Contrast material: ISOVUE; Contrast volume: 75 ml; Contrast route: IV; REPORTING DATA: Count of CT and Cardiac NM exams in prior 12 months: This patient has received 3 known CTs and 0 known cardiac nuclear medicine studies in the 12 months prior to the current study. COMPARISON: CT ANGIO ABDOMEN PELVIS 10/31/2022 7:33 PM FINDINGS: Lungs: Left basilar atelectasis is noted. Liver: Normal. No mass. Gallbladder and bile ducts: Normal. No calcified stones. No ductal dilation. Pancreas: Normal. No ductal dilation. Spleen: Normal. No splenomegaly. Adrenal glands: Normal. No mass. Kidneys and ureters: Normal. No hydronephrosis. Subcentimeter cortical hypodensity inferior medial right kidney too small to characterize. Stomach and bowel: Unremarkable. No obstruction. No mucosal thickening. Appendix: No evidence of appendicitis. Intraperitoneal space: Unremarkable. No free air. No significant fluid collection. Vasculature: Unremarkable. No abdominal aortic aneurysm. Lymph nodes: Unremarkable. No enlarged lymph nodes. Urinary bladder: Unremarkable as visualized. Reproductive: Unremarkable as visualized. Bones/joints: Old compression deformity of the L2 vertebral body. Soft tissues: A small fat containing umbilical hernia is noted. IMPRESSION: 1. There is no acute process within the abdomen or pelvis. 2. Left lung base atelectasis. COMMENTS: Consistent with the [employer]'s Incidental Findings Committee white paper (J Am Zelal[employer] Radiol 2018): Any incidental renal lesion less than 1 cm or classified as too small to characterize, or any incidental cystic renal lesion characterized as simple-appearing, is likely benign. No follow-up imaging is recommended for these lesions per consensus recommendations based on imaging criteria.
--- NOTE | 2022-12-10 23:28 | HMH.EDCP ---
Discharge Plan Disposition Patient Disposition: Home, Self-Care Chief Complaint: Chest Pain Prescriptions Prescriptions: No Action furosemide 40 mg tablet 60 mg PO DAILY 90 Days Qty: 135 2RF spironolactone 100 mg tablet 100 mg PO DAILY Qty: 90 2RF ranolazine 1,000 mg tablet extended release 12 hr 1,000 mg PO BID Qty: 180 2RF omeprazole 40 mg capsule,delayed release(DR/EC) 40 mg PO DAILY Qty: 90 2RF aspirin 81 mg tablet,chewable 81 mg PO DAILY Qty: 90 2RF fluticasone propionate 50 mcg/actuation spray,suspension 1 spray INTRANASAL DAILY Qty: 9.9 2RF ipratropium-albuterol 0.5 mg-3 mg(2.5 mg base)/3 mL solution for nebulization 3 ml IH Q6H PRN (Reason: shortness of breath or wheezing) Qty: 90 3RF fluoxetine 40 mg capsule 40 mg PO DAILY Qty: 30 2RF trazodone 50 mg tablet 50 mg PO QHS PRN (Reason: sleep) Qty: 30 1RF risperidone 1 mg tablet 1 mg PO BID Qty: 60 1RF azelastine 205.5 MCG/0.137 ML spray,non-aerosol 2 spray INTRANASAL HS Rx Instructions: administer into each nostril atorvastatin 40 mg tablet See Rx Instructions .ROUTE .COMPLEX Rx Instructions: TAKE 1 TABLET BY MOUTH ONCE DAILY AT BEDTIME FOR CHOLESTEROL gabapentin 400 mg capsule 400 mg PO BID isosorbide mononitrate 120 mg tablet extended release 24 hr 120 mg PO DAILY metoprolol succinate 25 mg tablet extended release 24 hr 25 mg PO DAILY Rx Instructions: TAKE 1 TABLET BY MOUTH ONCE DAILY FOR HIGH BLOOD PRESSURE albuterol sulfate 90 mcg/actuation HFA aerosol inhaler See Rx Instructions .ROUTE .COMPLEX Rx Instructions: INHALE 2 PUFFS BY MOUTH EVERY 4 TO 6 HOURS NEEDED Trelegy Ellipta 200-62.5-25 mcg blister with device 1 inh INHALATION DAILY Referrals Follow up/Referrals: Dio Albarado APRN [Primary Care Provider] - See instructions Clinical Impressions Clinical Impression: Chest pain Instructions Patient Instructions: DI for Atypical Chest Pain Discharge ED Provider: Krista (ED)Jorge Chest Pain HPI General Chief Complaint: Chest Pain Stated Complaint: Chest Pain Time Seen by Provider: 12/10/22 23:29 Mode of Arrival: Family Vehicle Source of Information: Patient, Spouse and Medical Record Limitations: No Limitations Description of Symptoms (Recalled from ER Triage Doc. by RN): Pt c/o midsternal chest pain and LUQ that began suddenly about 1 hr DOUBLE CUTTER (2149). He reports th pain began approx 30 min after eating steak & peas which he laid down afterwards. States he has a hx of heart issues but no stents, last heart cath 12/01/20 and notes severe diastolic dysfunction & no stents placed. Pt states he is scheduled to have a 3 mn cardiac follow up in december. He denies any nausea, vomiting, or diarrhea. Denies any fever or chills. is concerned pt has been having dizzy spells when getting up from a seated position. History of Present Illness HPI narrative: lt sided chest joyce with hx of cad and also lt upper abd pain - some dizzyness with standing MD complaint: chest pain indicative of cardiac Onset (ago): hour(s) Duration: intermittent Activity at onset: during rest Pain location: left chest Severity: moderate Quality: dull Risk Factors for CAD: Hypertension and Family Hx of CAD Treatments prior to or on arrival for Cardiac Chest Pain: none ZACK Score for Non-Stemi Age of Patient: 40-49 years old Heart Rate: 50-69 bpm Systolic Blood Pressure: 100-119 mmHg Serum Creatinine: 1.20-1.59 mg/dl CHF [place] Class: I-No CHF Other Risk Factors: None Non-Stemi Risk Score: 81 Risk Stratification: 1-108 = Low Risk Related Data Prior Cardiac Testing/Procedures: Cardiac Angiogram Home Medications Medication Instructions Recorded Confirmed azelastine 205.5 mcg (0.15 %) 2 spray intranasal HS Breathing 11/27/21 12/06/22 nasal spray problems albuterol sulfate 90 mcg/actuation See Rx Instructions .Route 12/11/22 12/11/22 [employer]
[2022-12-10 23:33] LABS: NT Pro Brain Natriuretic Pep. 105 pg/mL (0-125)
[2022-12-10 23:39] LABS: Troponin I < 0.01 ng/ml (0.00-0.034)
--- NOTE | 2022-12-10 23:45 | PC.NURSE ---
patient gone for CT at this time.
--- NOTE | 2022-12-10 23:55 | PC.NURSE ---
patient back in room at this time.
[2022-12-11] VITALS: BP 98/65; PULSE 65; RESP 15; O2SAT 97
[2022-12-11 00:30] VITALS: BP 104/62; PULSE 60; RESP 17; O2SAT 95
[2022-12-11 00:48] VITALS: BP 144/62; PULSE 70; PULSE 75; RESP 20; TEMP 36.7; O2SAT 98
== END 2022-12-11 00:55 | disposition home or self-care (01) ==
PROVIDERS: Emergency Provider Emergency Medicine; PCP Nurse Practitioner Family
DX: R07.89 Other chest pain (principal); R10.12 Left upper quadrant pain; R42 Dizziness and giddiness; J30.9 Allergic rhinitis, unspecified; F41.9 Anxiety disorder, unspecified; M54.9 Dorsalgia, unspecified; Z86.16 Personal history of COVID-19; I25.10 Atherosclerotic heart disease of native coronary artery without angina pectoris; Z86.79 Personal history of other diseases of the circulatory system; Z87.09 Personal history of other diseases of the respiratory system; F17.210 Nicotine dependence, cigarettes, uncomplicated; E78.5 Hyperlipidemia, unspecified; F33.9 Major depressive disorder, recurrent, unspecified; J45.20 Mild intermittent asthma, uncomplicated; N19 Unspecified kidney failure; E66.09 Other obesity due to excess calories; Z83.3 Family history of diabetes mellitus; Z82.49 Family history of ischemic heart disease and other diseases of the circulatory system; Z83.42 Family history of familial hypercholesterolemia
CPT/HCPCS: 71046; 74177; 80048; 80076; 82150; 83690; 83735; 83880; 84484; 85025; 93005; 96361; 96374; 96375; 99285; Q9967

== ENCOUNTER → 2022-12-27 11:54 | Outpatient (CLI) | payer MEDICARE, OTHER, SELFPAY ==
[2022-12-27 12:39] LABS: Blood Urea Nitrogen 9 mg/dl (9-20); Estimated Glomerular Filt Rate 72 ml/min (>60); GFR (African American) 87 ML/MIN (>60)
== END ==
PROVIDERS: PCP Nurse Practitioner Family; Visit Provider Nurse Practitioner Family
DX: Z01.812 Encounter for preprocedural laboratory examination (principal)
CPT/HCPCS: 36415; 82565; 84520

== ENCOUNTER 2022-12-28 08:35 | Outpatient (CLI) | payer MEDICARE, OTHER, SELFPAY ==
[2022-12-28 09:00] VITALS: BP 121/77; PULSE 72; RESP 18; O2SAT 90; BMI 46.0
[2022-12-28 09:30] VITALS: BP 114/67; PULSE 65; RESP 18; O2SAT 91
[2022-12-28 09:43] VITALS: BP 104/62; PULSE 57; RESP 18; O2SAT 91
--- NOTE | 2022-12-28 09:43 | PC.NURSE ---
Arrived to CT with radiology, charlies.
[2022-12-28 09:54] VITALS: BP 115/62; PULSE 57; RESP 18; O2SAT 93
[2022-12-28 10:00] VITALS: BP 118/68; PULSE 68; RESP 18; O2SAT 93
--- NOTE | 2022-12-28 10:00 | PC.NURSE ---
Scan complete. VSS, pt without C/O.
== END 2022-12-28 10:05 | disposition home or self-care (01) ==
LOC: RAD 08:35
PROVIDERS: PCP Nurse Practitioner Family; Visit Provider Nurse Practitioner Family
DX: E66.01 Morbid (severe) obesity due to excess calories (principal); E78.2 Mixed hyperlipidemia; G47.33 Obstructive sleep apnea (adult) (pediatric); I25.10 Atherosclerotic heart disease of native coronary artery without angina pectoris; I50.32 Chronic diastolic (congestive) heart failure; J44.9 Chronic obstructive pulmonary disease, unspecified; K21.9 Gastro-esophageal reflux disease without esophagitis; R06.09 Other forms of dyspnea; R07.89 Other chest pain; Z72.0 Tobacco use; I11.0 Hypertensive heart disease with heart failure; Z68.42 Body mass index [BMI] 45.0-49.9, adult
CPT/HCPCS: 75574; Q9967

== ENCOUNTER 2023-01-01 19:28 | Emergency (ER) | payer MEDICARE, OTHER, SELFPAY ==
--- NOTE | 2023-01-01 19:30 | ECG_ITS ---
APPROVED REPORT Exam: Resting ECG HR:74 bpm ECG Measurements Heart Rate 74 AXES LA 201 P 55 QRSd 98 QRS 35 QT 426 T 63 QTc 454 Conclusion SINUS RHYTHM PROBABLE INFERIOR MYOCARDIAL INFARCTION , OLD [35 ms Q WAVE IN II/aVF] ABNORMAL ECG UNCONFIRMED REPORT Electronically signed by : Carlos Noland MD 01/03/2023 01:46:38
[2023-01-01 19:35] VITALS: BP 105/71; PULSE 77; RESP 16; TEMP 36.6; O2SAT 100; BMI 48.8
--- NOTE | 2023-01-01 19:41 | XR_ITS ---
PROCEDURE INFORMATION: Exam: XR Chest Exam date and time: 01/01/2023 7:49 PM Age: 47 years old Clinical indication: Sternal or substernal pain; Patient HX: Pain in center of chest for a week. ; Additional info: Chest pain TECHNIQUE: Imaging protocol: Radiologic exam of the chest. Views: 2 views. COMPARISON: CR XR CHEST 2V 12/10/2022 11:06 PM FINDINGS: Lungs: Unremarkable. No consolidation. Pleural spaces: Unremarkable. No pleural effusion. No pneumothorax. Heart/Mediastinum: Unremarkable. No cardiomegaly. Bones/joints: Mild degenerative changes of the spine and shoulders noted IMPRESSION: No acute disease
[2023-01-01 19:57] LABS: Basophils # 0.1 K/mm3 (0-0.2); Eosinophils # 0.4 K/mm3 (0.0-0.4); Eosinophils % 3.1 % (0.1-12.0); Hematocrit 40.2 % (42.0-52.0); Hemoglobin 13.5 g/dL (14.1-18.0); Lymphocytes # 2.8 K/mm3 (0.7-4.5); Lymphocytes % 24.7 % (10-50); Mean Corpuscular HGB Conc 33.7 g/dL (31.8-35.4); Mean Corpuscular Hemoglobin 30.1 pg (27.0-31.2); Mean Corpuscular Volume 89.3 fl (80-94); Mean Platelet Volume 8.1 fl (7.4-10.4); Monocytes # 0.6 K/mm3 (0.1-1.0); Neutrophils # 7.5 K/mm3 (1.8-7.8); Neutrophils % 66.2 % (37.0-80.0); Platelet Count 263 K/mm3 (142-424); Red Cell Distribution Width 13.6 % (11.5-17.5); White Blood Count 11.3 K/mm3 (4.8-10.8)
[2023-01-01 19:58] LABS: Alanine Aminotransferase 19 U/L (12-78); Albumin Level 4.4 g/dl (3.5-5.0); Albumin/Globulin Ratio 1.5 (1.1-1.8); Alkaline Phosphatase 76 U/L (38-126); Aspartate Amino Transferase 26 U/L (17-59); Bilirubin,Total 0.4 mg/dl (0.2-1.3); Blood Urea Nitrogen 16 mg/dl (9-20); Calcium 8.7 mg/dl (8.4-10.2); Carbon Dioxide 27 mmol/L (22.0-30.0); Creatinine Clearance Estimated 61 mL/min (50-200); Estimated Glomerular Filt Rate 47 ml/min (>60); GFR (African American) 56 ML/MIN (>60); Globulin 2.9 g/dL (1.3-3.2); Glucose 111 mg/dl (74-100); Potassium 3.8 mmoL/L (3.5-5.1); Sodium 135 mmol/L (136-145); Total Protein,Serum 7.3 g/dl (6.3-8.2)
--- NOTE | 2023-01-01 19:58 | PC.NURSE ---
Pt gone to RAD via wheelchair
--- NOTE | 2023-01-01 20:06 | PC.NURSE ---
Pt back from RAD
[2023-01-01 20:11] LABS: Anion Gap 13.8 mEq/L (5-15); Chloride 98 mmol/L (98-107); Troponin I < 0.01 ng/ml (0.00-0.034)
[2023-01-01 20:34] VITALS: BP 131/71; PULSE 72; RESP 19; O2SAT 96
[2023-01-01 20:36] LABS: Microscopic, Urine URINE MICROSCOPIC (MICROSCOPIC)
--- NOTE | 2023-01-01 20:39 | HMH.EDCP ---
Discharge Plan Disposition Patient Disposition: Home, Self-Care Prescriptions Prescriptions: No Action furosemide 40 mg tablet 60 mg PO DAILY 90 Days Qty: 135 2RF spironolactone 100 mg tablet 100 mg PO DAILY Qty: 90 2RF ranolazine 1,000 mg tablet extended release 12 hr 1,000 mg PO BID Qty: 180 2RF omeprazole 40 mg capsule,delayed release(DR/EC) 40 mg PO DAILY Qty: 90 2RF aspirin 81 mg tablet,chewable 81 mg PO DAILY Qty: 90 2RF fluticasone propionate 50 mcg/actuation spray,suspension 1 spray INTRANASAL DAILY Qty: 9.9 2RF trazodone 50 mg tablet 50 mg PO QHS PRN (Reason: sleep) Qty: 30 1RF risperidone 1 mg tablet 1 mg PO BID Qty: 60 1RF fluoxetine 40 mg capsule 40 mg PO DAILY Qty: 30 2RF azelastine 205.5 MCG/0.137 ML spray,non-aerosol 2 spray INTRANASAL HS Rx Instructions: administer into each nostril atorvastatin 40 mg tablet See Rx Instructions .ROUTE .COMPLEX Rx Instructions: TAKE 1 TABLET BY MOUTH ONCE DAILY AT BEDTIME FOR CHOLESTEROL gabapentin 400 mg capsule 400 mg PO BID isosorbide mononitrate 120 mg tablet extended release 24 hr 120 mg PO DAILY metoprolol succinate 25 mg tablet extended release 24 hr 25 mg PO DAILY Rx Instructions: TAKE 1 TABLET BY MOUTH ONCE DAILY FOR HIGH BLOOD PRESSURE albuterol sulfate 90 mcg/actuation HFA aerosol inhaler See Rx Instructions .ROUTE .COMPLEX Rx Instructions: INHALE 2 PUFFS BY MOUTH EVERY 4 TO 6 HOURS NEEDED Trelegy Ellipta 200-62.5-25 mcg blister with device 1 inh INHALATION DAILY Referrals Follow up/Referrals: Dio Albarado APRN [Primary Care Provider] - See instructions Win Linares MD [Staff Physician] - See instructions Clinical Impressions Clinical Impression: Chest pain Instructions Patient Instructions: DI for Chest Pain Discharge ED Provider: Krista (RADHA)Jorge Chest Pain HPI General Chief Complaint: Chest Pain Stated Complaint: Chest Pain Time Seen by Provider: 01/01/23 20:05 Mode of Arrival: Wheelchair Source of Information: Patient, Spouse and Medical Record Limitations: No Limitations Description of Symptoms (Recalled from ER Triage Doc. by RN): Pt arrives to er via wheelchair. States that he has been having chest pain for the prior several weeks. Was seen in ER for chest pain recently and saw his shucker two weeks ago with a scheduled follow up due 01/03/2023. States that 20 minutes ago he began having chest pain in the center of his chest that radiates into his left neck and shoulder with associated headache States that he did eat prior to the chest pain begining but believes that he ate at 1700. History of Present Illness HPI narrative: pt with ant lower chest pain /epigastric pain with rad to lt upper ext - has hx of card dis MD complaint: chest pain indicative of cardiac Onset (ago): hour(s) Duration: intermittent Activity at onset: after eating Pain location: substernal and epigastric Severity: moderate Quality: sharp Risk Factors for CAD: Hypertension and Family Hx of CAD Treatments prior to or on arrival for Cardiac Chest Pain: none ZACK Score for Non-Stemi Age of Patient: 40-49 years old Heart Rate: 70-89 bpm Systolic Blood Pressure: 120-139 mmhg Serum Creatinine: 1.60-1.99 mg/dl CHF Killip Class: I-No CHF Other Risk Factors: None Non-Stemi Risk Score: 81 Risk Stratification: 1-108 = Low Risk Related Data Prior Cardiac Testing/Procedures: Stenting Home Medications Medication Instructions Recorded Confirmed azelastine 205.5 mcg (0.15 %) 2 spray intranasal HS Breathing 11/27/21 01/01/23 nasal spray problems albuterol sulfate 90 mcg/actuation See Rx Instructions .Route 12/11/22 01/01/23 aerosol inhaler .COMPLEX wheezing soa atorvastatin 40 mg tablet See Rx Instructions .Route 12/11/22 01/01/23 .COMPLEX High cholesterol fluticasone fur. 200 mcg-umeclid 1 inh inhalation DAILY COPD 12/11/22
[2023-01-01 21:02] VITALS: BP 120/63; PULSE 71; PULSE 80; RESP 20; TEMP 36.9; O2SAT 96
[2023-01-01 21:08] LABS: NT Pro Brain Natriuretic Pep. 31.7 pg/mL (0-125)
[2023-01-01 21:18] LABS: Appearance,Urine CLEAR (Clear); Bilirubin,Urine Negative (Negative); Blood, Urine Negative (Negative); Color,Urine YELLOW (Yellow); Glucose,Urine (UA) Negative (Negative); Ketones,Urine Negative (Negative); Leukocyte Esterase,Urine Negative (Negative); Nitrate,Urine Negative (Negative); Protein,Urine Negative (Negative); Specific Gravity, Urine 1.015 (1.005-1.030); Urobilinogen,Urine 0.2 EU/dl (0.2)
== END 2023-01-01 21:07 | disposition home or self-care (01) ==
PROVIDERS: Emergency Provider Emergency Medicine; PCP Nurse Practitioner Family
DX: R07.9 Chest pain, unspecified (principal); M54.2 Cervicalgia; M25.512 Pain in left shoulder
CPT/HCPCS: 71046; 80053; 81001; 83880; 84484; 85025; 93005; 96360; 96374; 96375; 99285

== ENCOUNTER → 2023-01-16 06:44 | Outpatient (CLI) | payer MEDICARE, OTHER, SELFPAY ==
--- NOTE | 2023-01-16 06:45 | US_ITS ---
FINAL REPORT CLINICAL HISTORY: Abd pain FINDINGS: Sonographic images of the right upper quadrant were obtained. The pancreas is partially obscured. There is fatty infiltration of the liver. The gallbladder appears normal without evidence of gallstones.There is no evidence of biliary ductal dilatation.The common duct measures 3 mm. Limited images of the right kidney are unremarkable. IMPRESSION: Fatty liver. Reviewed, Interpreted and Dictated by Karlos Foss III, MD Transcribed by Ana Maria Ricks Authenticated and [facility]
== END ==
PROVIDERS: PCP Nurse Practitioner Family; Visit Provider Nurse Practitioner Family
DX: R10.9 Unspecified abdominal pain (principal)
CPT/HCPCS: 76705

== ENCOUNTER 2023-01-31 10:35 | Day surgery (SDC) | payer MEDICARE, OTHER, SELFPAY ==
[2023-01-30 11:48] VITALS: BMI 46.0
[2023-01-31 12:37] VITALS: BP 114/55; PULSE 56; RESP 16; TEMP 36.2; O2SAT 95
--- NOTE | 2023-01-31 13:57 | EXP.ANES.CKL ---
[facility] Disclaimer: The information contained in this section may have been updated after the patient was seen, as this information can be updated by other users. Medical History Allergic rhinitis Allergic rhinitis, unspecified Anxiety Back pain CAD (coronary artery disease), [place] coronary artery Chest pain COVID-19 COVID-19 virus infection Dyspnea Dyspnea on exertion Dyspnea on exertion Edema Encounter for pre-operative cardiovascular clearance Ex-smoker GERD (gastroesophageal reflux disease) History of hyperlipidemia Hypokalemia Major depressive disorder Moderate persistent asthma Morbid obesity due to excess calories Obesity (BMI 30-39.9) HARSH (obstructive sleep apnea) Renal insufficiency Stopped smoking with greater than 15 pack year history Stopped smoking with greater than 20 pack year history Tobacco abuse disorder Surgical History History of appendectomy Family History Other Coronary artery disease Diabetes Hyperlipidemia Hypertension Social History (Updated 01/31/23 @ 12:35 by Lola Wynn RN) Smoking Status: Current some day smoker tobacco type: cigarettes packs per day: 1 second hand exposure: No alcohol intake: never substance use type: denies use current occupational status: disabled Travel in the last 8 weeks: Inside the [place] household members: spouse housing: house lives independently: No marital status: number of children: 0 current occupational exposures/hazards: No caffeine: Yes do you feel safe at home: Yes victim of physical abuse: No victim of emotional abuse: No victim of sexual abuse: No would you like helpful sources: No [facility] Anesthesia Checklist Patient Identification Patient Identification: Verbal (Name & ) Structural Data Admitted From: Home Planned Operative Procedure/s: egd,colonoscopy Consent for Planned Operative Procedure(s) Verified: Yes Additional verifications Anesthesia Reactions: No Hx Blood Transfusions: No Blood Transfusion Reaction: No Airway Assessment C-Spine Mobility Assessed: Yes TMJ Mobility Assessed: Yes Dentition: Good Dentition Neurological Assessment Level of Consciousness: Awake, Alert and Appropriate Anesthesia Plan Anesthesia Risk discussed: Yes Anesthesia Plan: Verified ASA Class: II Anesthesia Type: MAC
[2023-01-31 14:05] VITALS: O2SAT 95
[2023-01-31 14:40] VITALS: BP 121/80; PULSE 69; RESP 17; TEMP 36.7; O2SAT 96
--- NOTE | 2023-01-31 14:42 | HMH.SCOPE ---
Procedure: Date: 01/31/23 Patient Date of :: 1975 Procedure Performed:: EGD Indications:: Anemia Performing Provider:: Ruddy Waldron MD Referring Provider:: Dio Albarado APRN Sedation:: See RN records Procedure:: The gastroscope was gently passed through the incisoral orifice into the oral cavity and under direct visualization the esophagus was intubated. The endoscope was passed down the esophagus, through the stomach, and into the duodenum. Color, texture, mucosa, and anatomy of the esophagus, stomach, and duodenum were carefully examined with the scope. Findings:: Oropharynx: normal Esophagus: Mcarthur's esophagus. 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 Biopsies obtained EG Junction: measured at 40 cm. Cardia: normal Fundus: normal Body: Minimal gastritis. Boipsies obtained Antrum: normal Duodenal bulb: normal Duodenum (second and third portion): normal Impression: Mcarthur's esophagus Gastritis Recommendations:: Await pathology results Continue omeprazole 40 mg once daily Repeat EGD in 3 years Complications:: None Estimated blood obtained (mL): 0
--- NOTE | 2023-01-31 14:45 | HMH.SCOPE ---
Procedure: Date: 01/31/23 Patient Date of :: 1975 Procedure Performed:: Colonoscopy Indications:: Screening Performing Provider:: Ruddy Waldron MD Referring Provider:: Dio Albarado APRN Sedation:: See RN records Procedure:: After placing the patient in the left lateral decubitus position, the colonoscopy was gently inserted into the rectum and under direct visualization advanced to the cecum which was identified by transillumination in the right lower quadrant, identification of the ileocecal valve, appendiceal orifice, and cecal strap. Color, texture, mucosa, and anatomy of the colon were carefully examined with the scope. Findings:: Anal canal: normal Rectum: normal Sigmoid colon: normal without polyps or inflammatory changes Descending colon: Two polyps less than 5 mm in size. Removed with cold snare and hot snare polypectomy Splenic flexure: normal Transverse colon: normal without polyps or inflammatory changes Hepatic flexure: normal Ascending colon: normal without polyps or inflammatory changes Cecum: normal Terminal ileum: not visualized Impression: Polyps of descending colon Fair bowel preparation Recommendations:: Await pathology results Repeat colonoscopy in 3 years Complications:: None Estimated blood obtained (mL): 0
[2023-01-31 14:50] VITALS: BP 136/54; PULSE 66; RESP 17; O2SAT 98
[2023-01-31 15:00] VITALS: BP 120/71; PULSE 59; RESP 16; O2SAT 96
[2023-01-31 15:10] VITALS: BP 125/71; PULSE 61; RESP 17; TEMP 36.8; O2SAT 97
--- NOTE | 2023-01-31 15:19 | P.PN_ITS ---
[facility] Disclaimer: The information contained in this section may have been updated after the patient was seen, as this information can be updated by other users. Medical History Allergic rhinitis Allergic rhinitis, unspecified Anxiety Back pain CAD (coronary artery disease), [place] coronary artery Chest pain COVID-19 COVID-19 virus infection Dyspnea Dyspnea on exertion Dyspnea on exertion Edema Encounter for pre-operative cardiovascular clearance Ex-smoker GERD (gastroesophageal reflux disease) History of hyperlipidemia Hypokalemia Major depressive disorder Moderate persistent asthma Morbid obesity due to excess calories Obesity (BMI 30-39.9) HARSH (obstructive sleep apnea) Renal insufficiency Stopped smoking with greater than 15 pack year history Stopped smoking with greater than 20 pack year history Tobacco abuse disorder Surgical History History of appendectomy Family History Other Coronary artery disease Diabetes Hyperlipidemia Hypertension Social History (Updated 01/31/23 @ 12:35 by Lola Wynn RN) Smoking Status: Current some day smoker tobacco type: cigarettes packs per day: 1 second hand exposure: No alcohol intake: never substance use type: denies use current occupational status: disabled Travel in the last 8 weeks: Inside the [place] household members: spouse housing: house lives independently: No marital status: number of children: 0 current occupational exposures/hazards: No caffeine: Yes do you feel safe at home: Yes victim of physical abuse: No victim of emotional abuse: No victim of sexual abuse: No would you like helpful sources: No [facility] Anesthesia Checklist Patient Identification Patient Identification: Verbal (Name & ) Structural Data Admitted From: Home Planned Operative Procedure/s: egd,colonoscopy Consent for Planned Operative Procedure(s) Verified: Yes Additional verifications Anesthesia Reactions: No Hx Blood Transfusions: No Blood Transfusion Reaction: No Airway Assessment C-Spine Mobility Assessed: Yes TMJ Mobility Assessed: Yes Dentition: Edentulous Neurological Assessment Level of Consciousness: Awake, Alert and Appropriate Anesthesia Plan Anesthesia Risk discussed: Yes Anesthesia Plan: Verified ASA Class: III Anesthesia Type: MAC
== END 2023-01-31 15:10 | disposition home or self-care (01) ==
PROVIDERS: PCP Nurse Practitioner Family; Visit Provider Internal Medicine
PROC: 0DJ08ZZ Inspection of Upper Intestinal Tract, Via Natural or Artificial Opening Endoscopic (ICD-10-PCS; CPT 43235; principal; 2023-01-31 12:30)
DX: D64.9 Anemia, unspecified (principal); K22.70 Barrett's esophagus without dysplasia; K29.70 Gastritis, unspecified, without bleeding; D12.4 Benign neoplasm of descending colon; K21.9 Gastro-esophageal reflux disease without esophagitis
CPT/HCPCS: 43239; 45385; 88305

== ENCOUNTER → 2023-02-14 09:56 | Outpatient (CLI) | payer MEDICARE, OTHER, SELFPAY ==
--- NOTE | 2023-02-14 09:56 | NM_ITS ---
FINAL REPORT CLINICAL HISTORY: abdominal pain 10:20 am 8.50 mci tc choletec 3 mcg of cck u/s neg for gb stone 01/16/23 FINDINGS: HEPATOBILIARY SCAN WITH CCK INJECTION Technique: Following intravenous administration of approximately 8.5 mCi of TC Choletec, multiple scintigraphic images were obtained. FINDINGS: The hepatic parenchymal phase shows homogeneous distribution of tracer throughout the liver. Prompt appearance of tracer is noted in the intrahepatic and extrahepatic biliary systems. The gallbladder visualizes normally. Biliary to bowel transit is within normal limits. Following intravenous CCK injection, gallbladder ejection is estimated to be 86 %. IMPRESSION: 1. Normal visualization of activity within biliary tree, gallbladder and drainage into small bowel. 2. Normal gallbladder ejection fraction of 86 %. Authenticated and [facility]
== END ==
PROVIDERS: PCP Nurse Practitioner Family; Visit Provider Nurse Practitioner Family
DX: R10.9 Unspecified abdominal pain (principal)
CPT/HCPCS: 78227; A9537; J2805

== ENCOUNTER → 2023-03-15 07:42 | Outpatient (CLI) | payer MEDICARE, OTHER, SELFPAY | PROVIDERS: PCP Nurse Practitioner Family; Visit Provider Internal Medicine Pulmonary Disease | DX: R06.02 Shortness of breath (principal) | CPT/HCPCS: 94060; 94618; 94726; 94729 ==

== ENCOUNTER → 2023-04-11 16:04 | Outpatient (CLI) | payer MEDICARE, OTHER, SELFPAY | PROVIDERS: PCP Nurse Practitioner Family; Visit Provider Nurse Practitioner Family | DX: M54.50 Low back pain, unspecified (principal); N28.9 Disorder of kidney and ureter, unspecified | CPT/HCPCS: 87086 ==

== ENCOUNTER → 2023-04-27 08:17 | Outpatient (CLI) | payer MEDICARE, OTHER, SELFPAY ==
[2023-04-27 09:18] LABS: Alanine Aminotransferase 23 U/L (12-78); Albumin Level 3.7 g/dl (3.5-5.0); Albumin/Globulin Ratio 1.5 (1.1-1.8); Alkaline Phosphatase 85 U/L (38-126); Anion Gap 11.4 mEq/L (5-15); Aspartate Amino Transferase 23 U/L (17-59); Bilirubin,Total 0.5 mg/dl (0.2-1.3); Blood Urea Nitrogen 13 mg/dl (9-20); Carbon Dioxide 24 mmol/L (22.0-30.0); Chloride 108 mmol/L (98-107); Chol/HDL Ratio 3.3 (1-3.5); Cholesterol 99 mg/dl (140-200); Estimated Glomerular Filt Rate 71 ml/min (>60); GFR (African American) 86 ML/MIN (>60); Globulin 2.5 g/dL (1.3-3.2); Glucose 109 mg/dl (74-100); HDL Cholesterol 30 mg/dl (40-60); Potassium 4.4 mmoL/L (3.5-5.1); Sodium 139 mmol/L (136-145); Total Protein,Serum 6.2 g/dl (6.3-8.2); Triglycerides 154 mg/dl (30-150); VLDL Cholesterol 31 mg/dL (0-40)
[2023-04-27 09:30] LABS: Direct LDL Cholesterol 50.66 mg/dL (100-129)
[2023-04-27 09:37] LABS: 25-OH Vitamin D, Total 37.5 ng/mL (30-100); Free T4 (Free Thyroxine) 0.92 ng/dl (0.78-2.19)
[2023-04-27 13:36] LABS: Basophils % 0.3 % (0.1-2.0); Eosinophils # 0.4 K/mm3 (0.0-0.4); Eosinophils % 4.2 % (0.1-12.0); Hematocrit 36.9 % (42.0-52.0); Hemoglobin 13.2 g/dL (14.1-18.0); Lymphocytes # 1.6 K/mm3 (0.7-4.5); Lymphocytes % 18.6 % (10-50); Mean Corpuscular HGB Conc 35.7 g/dL (31.8-35.4); Mean Corpuscular Hemoglobin 32.2 pg (27.0-31.2); Mean Platelet Volume 7.8 fl (7.4-10.4); Monocytes # 0.4 K/mm3 (0.1-1.0); Neutrophils # 6.1 K/mm3 (1.8-7.8); Neutrophils % 71.9 % (37.0-80.0); Platelet Count 242 K/mm3 (142-424); Red Cell Distribution Width 14.1 % (11.5-17.5); White Blood Count 8.4 K/mm3 (4.8-10.8)
== END ==
PROVIDERS: PCP Nurse Practitioner Family; Visit Provider Emergency Medicine
DX: R53.83 Other fatigue (principal); Z86.39 Personal history of other endocrine, nutritional and metabolic disease; E03.9 Hypothyroidism, unspecified; I25.10 Atherosclerotic heart disease of native coronary artery without angina pectoris; K59.00 Constipation, unspecified; E55.9 Vitamin D deficiency, unspecified
CPT/HCPCS: 36415; 80053; 80061; 82306; 84439; 84443; 85025

== ENCOUNTER → 2023-05-02 10:30 | Outpatient (CLI) | payer MEDICARE, OTHER, SELFPAY | PROVIDERS: PCP Nurse Practitioner Family; Visit Provider Internal Medicine | DX: R55 Syncope and collapse (principal) | CPT/HCPCS: 93270 ==

== ENCOUNTER 2023-05-28 10:00 | Emergency (ER) | payer MEDICARE, OTHER, SELFPAY ==
[2023-05-28] VITALS (8 sets, daily range): BP systolic 107–121; BP diastolic 58–74; PULSE 53–71; RESP 20; TEMP 36.7; O2SAT 94–99; BMI 45.3
--- NOTE | 2023-05-28 10:02 | ECG_ITS ---
APPROVED REPORT Exam: Resting ECG HR:57 bpm ECG Measurements Heart Rate 57 AXES WI 203 P 54 QRSd 100 QRS 7 QT 427 T 44 QTc 422 Conclusion SINUS BRADYCARDIA LOW QRS VOLTAGE IN PRECORDIAL LEADS [QRS DEFLECTION < 1.0 mV IN CHEST LEADS] BORDERLINE ECG UNCONFIRMED REPORT Electronically signed by : Carlos Noland MD 05/29/2023 19:45:28
--- NOTE | 2023-05-28 10:05 | CT_ITS ---
FINAL REPORT CLINICAL HISTORY: L sided deficits, concern for stroke FINDINGS: CTA HEAD Thin section axial CT with contrast with multiplanar reconstruction No aneurysm is seen. Major intracranial vessels are patent without significant stenosis. . IMPRESSION: Unremarkable CTA NECK Thin section axial CT with contrast with multiplanar reconstruction NASCET criteria and technique was utilized during interpretation. Aortic arch: Arch shows no significant narrowing. Great vessel origins are widely patent . Right carotid: No significant stenosis is seen of the cervical common or internal carotid artery . Left carotid: No significant stenosis is seen of the cervical common or internal carotid artery . Vertebrals: Left vertebral artery is dominant. No significant stenosis is present . IMPRESSION: No large vessel occlusion. Reviewed, Interpreted and Dictated by Braydon Leonardo MD Transcribed by Martha Juarez Authenticated and [facility]
--- NOTE | 2023-05-28 10:05 | CT_ITS ---
FINAL REPORT TECHNIQUE: Axial CT images were performed through the head. Coronal reformatted images were submitted. This study was performed with techniques to keep radiation doses as low as reasonably achievable (ALARA). Individualized dose reduction techniques using automated exposure control or adjustment of mA and/or kV according to the patient's size were employed. CLINICAL HISTORY: L sided deficits, concern for stroke FINDINGS: The ventricles are normal in size. There is no evidence of hemorrhage. There is no mass or edema identified. There is no abnormal extra-axial fluid seen. The sinuses are well aerated. IMPRESSION: No acute intracranial process. Reviewed, Interpreted and Dictated by Braydon Leonardo MD Transcribed by Martha Juarez Authenticated and [facility]
--- NOTE | 2023-05-28 10:08 | PC.NURSE ---
pt to CT via stretcher
[2023-05-28 10:13] LABS: POC Glucose,Bedside 114 (70-110)
[2023-05-28 10:17] LABS: Basophils # 0.1 K/mm3 (0-0.2); Basophils % 0.6 % (0.1-2.0); Eosinophils # 0.4 K/mm3 (0.0-0.4); Hematocrit 39.8 % (42.0-52.0); Hemoglobin 13.4 g/dL (14.1-18.0); Lymphocytes % 23.4 % (10-50); Mean Corpuscular HGB Conc 33.7 g/dL (31.8-35.4); Mean Corpuscular Hemoglobin 30.2 pg (27.0-31.2); Mean Corpuscular Volume 89.7 fl (80-94); Mean Platelet Volume 8.1 fl (7.4-10.4); Monocytes # 0.4 K/mm3 (0.1-1.0); Neutrophils # 5.7 K/mm3 (1.8-7.8); Platelet Count 262 K/mm3 (142-424); Red Blood Count 4.43 M/mm3 (4.60-6.20); Red Cell Distribution Width 13.7 % (11.5-17.5); White Blood Count 8.7 K/mm3 (4.8-10.8)
--- NOTE | 2023-05-28 10:20 | HMH.EDGENADL ---
Discharge Plan Disposition Patient Disposition: Home, Self-Care Condition: Good Prescriptions Prescriptions: No Action aspirin 81 mg tablet,chewable 81 mg PO DAILY Qty: 90 2RF albuterol sulfate 90 mcg/actuation HFA aerosol inhaler 2 inh inhalation Q6H PRN (Reason: shortness of breath or wheezing) 90 Days Qty: 8.5 1RF amlodipine [Norvasc] 5 mg tablet 5 mg PO DAILY Qty: 30 2RF isosorbide mononitrate 60 mg tablet extended release 24 hr 60 mg PO DAILY Qty: 30 2RF gabapentin 400 mg capsule 400 mg PO BID Qty: 60 2RF fluticasone propionate 50 mcg/actuation spray,suspension 2 spray INTRANASAL DAILY Qty: 9.9 2RF nitroglycerin 0.4 mg tablet, sublingual 0.4 mg sublingual Q5M PRN (Reason: chest pain) Qty: 30 0RF Rx Instructions: do not exceed 3 doses per episode cyclobenzaprine 10 mg tablet 10 mg PO TID PRN (Reason: muscle spasm) Qty: 60 0RF furosemide 40 mg tablet 60 mg PO DAILY 90 Days Qty: 135 1RF omeprazole 40 mg capsule,delayed release(DR/EC) 40 mg PO DAILY Qty: 90 2RF fluoxetine 40 mg capsule 40 mg PO DAILY Qty: 30 2RF atorvastatin 40 mg tablet See Rx Instructions .ROUTE .COMPLEX Qty: 90 3RF Rx Instructions: TAKE 1 TABLET BY MOUTH ONCE DAILY AT BEDTIME FOR CHOLESTEROL risperidone 1 mg tablet 1 mg PO BID Qty: 60 1RF spironolactone 100 mg tablet See Rx Instructions .ROUTE .COMPLEX Qty: 90 1RF Dose Instruction: TAKE 1 TABLET BY MOUTH ONCE DAILY FOR FLUID Rx Instructions: TAKE 1 TABLET BY MOUTH ONCE DAILY FOR FLUID trazodone 50 mg tablet 50 mg PO QHS PRN (Reason: sleep) Qty: 30 0RF montelukast 10 mg tablet 10 mg PO DAILY azelastine 205.5 mcg (0.15 %) spray,non-aerosol 2 spray intranasal HS Rx Instructions: administer into each nostril fluticasone furoate-vilanterol [Breo Ellipta] 200-25 mcg/dose blister with device 1 inh inhalation DAILY metoprolol succinate 25 mg tablet extended release 24 hr 25 mg PO DAILY Rx Instructions: TAKE 1 TABLET BY MOUTH ONCE DAILY FOR HIGH BLOOD PRESSURE Referrals Follow up/Referrals: Provider,Referral, [Referring] - See instructions Activity Restrictions/Add. Instructions Additional Instructions/Restrictions: You were evaluated in the emergency department today. Please continue taking your aspirin, atorvastatin, and your other medications at home. It is very important that you continue taking your aspirin. Follow-up with your primary care provider over the next 24 to 48 hours. I recommend that you call them today and notify them that you were evaluated here. Please return to the emergency department for new or worsening symptoms, such as numbness, tingling, weakness, vision changes, or other concerns. Clinical Impressions Clinical Impression: Brain TIA Instructions Patient Instructions: DI for Transient Ischemic Attack Discharge ED Provider: Zara Chinchilla General Adult HPI General Chief complaint: Neuro Symptoms/Deficit Stated complaint: weakness Time Seen by Provider: 05/28/23 10:02 Mode of Arrival: Ambulatory Source of Information: Patient Limitations: No Limitations Description of Symptoms (Recalled from ER Triage Doc. by RN): Pt reports L sided numbness and weakness. Pt has L arm drift noted. Pt reports symptoms began approx 0915 this morning. Pt denies being on blood thinners. 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 History of Present Illness HPI narrative: This patient is a 48-year-old male with a history of obesity, hypertension, hyperlipidemia, COPD, chronic GERD, asthma, CAD, HARSH, and CHF presented to the emergency department for evaluation with concern for left-sided pain and weakness. He states that around 915 this morning, he had sudden onset of tingling and pain going down his left arm and left leg. He states he was feeling fi
[2023-05-28 10:24] LABS: Alanine Aminotransferase 25 U/L (12-78); Albumin Level 3.9 g/dl (3.5-5.0); Albumin/Globulin Ratio 1.2 (1.1-1.8); Alkaline Phosphatase 92 U/L (38-126); Anion Gap 12.9 mEq/L (5-15); Aspartate Amino Transferase 25 U/L (17-59); Bilirubin,Total 0.3 mg/dl (0.2-1.3); Blood Urea Nitrogen 12 mg/dl (9-20); Carbon Dioxide 23 mmol/L (22.0-30.0); Chloride 107 mmol/L (98-107); Creatinine Clearance Estimated 80 mL/min (50-200); Estimated Glomerular Filt Rate 65 ml/min (>60); GFR (African American) 78 ML/MIN (>60); Globulin 3.2 g/dL (1.3-3.2); Glucose 105 mg/dl (74-100); Potassium 3.9 mmoL/L (3.5-5.1); Sodium 139 mmol/L (136-145); Total Protein,Serum 7.1 g/dl (6.3-8.2)
[2023-05-28 10:28] LABS: Activated Partial Thrombo Time 29.4 seconds (22.8-30.6); INR 0.97 (0.9-1.1); Prothrombin Time 10.5 seconds (10.1-12.5)
--- NOTE | 2023-05-28 10:31 | XR_ITS ---
FINAL REPORT CLINICAL HISTORY: pain COMPARISON: None FINDINGS: The heart size is normal. The mediastinum is normal. There is no focal infiltrate or edema. There is mild scarring present in the left lung base. There are no pleural effusions. There is no pneumothorax. There is no osseous abnormality. IMPRESSION: No acute cardiopulmonary process Reviewed, Interpreted and Dictated by Braydon Leonardo MD Transcribed by Libby Yepez Authenticated and . [facility]
[2023-05-28 10:38] LABS: Troponin I < 0.01 ng/ml (0.00-0.034)
--- NOTE | 2023-05-28 10:45 | PC.NURSE ---
rad staff sent down preliminary results on CT head
--- NOTE | 2023-05-28 12:56 | PC.NURSE ---
2nd troponin collected and submitted to the lab. Pt's asked again for pt to have food or drink, per pt is to maintain NPO until d/c. asked for something for her to drink, at this time she was advised we can not d/t her risk of providing it to the pt. Let both of them know, we would be glad to ensure they have a snack/drinks when MD lifts NPO restrictions.
[2023-05-28 13:50] LABS: Troponin I < 0.01 ng/ml (0.00-0.034)
== END 2023-05-28 14:07 | disposition home or self-care (01) ==
PROVIDERS: Emergency Provider Emergency Medicine; PCP Nurse Practitioner Family
DX: G45.9 Transient cerebral ischemic attack, unspecified (principal); R07.9 Chest pain, unspecified; I11.0 Hypertensive heart disease with heart failure; I50.9 Heart failure, unspecified; E78.5 Hyperlipidemia, unspecified; J44.9 Chronic obstructive pulmonary disease, unspecified; K21.9 Gastro-esophageal reflux disease without esophagitis; I25.10 Atherosclerotic heart disease of native coronary artery without angina pectoris; E66.9 Obesity, unspecified; J45.40 Moderate persistent asthma, uncomplicated; G47.33 Obstructive sleep apnea (adult) (pediatric); F32.9 Major depressive disorder, single episode, unspecified; F17.210 Nicotine dependence, cigarettes, uncomplicated; R00.1 Bradycardia, unspecified
CPT/HCPCS: 70450; 70496; 70498; 71045; 80053; 82962; 84484; 85025; 85610; 85730; 93005; 99291; Q9967

== ENCOUNTER 2023-05-30 14:16 | Emergency (ER) | payer MEDICARE, OTHER, SELFPAY ==
[2023-05-30] VITALS (9 sets, daily range): BP systolic 98–122; BP diastolic 47–76; PULSE 61–82; RESP 18–20; TEMP 37.2; O2SAT 93–98; BMI 45.3
--- NOTE | 2023-05-30 14:23 | ECG_ITS ---
APPROVED REPORT Exam: Resting ECG HR:65 bpm ECG Measurements Heart Rate 65 AXES MI 192 P 55 QRSd 103 QRS 30 QT 416 T 53 QTc 428 Conclusion SINUS RHYTHM LOW QRS VOLTAGE IN PRECORDIAL LEADS [QRS DEFLECTION < 1.0 mV IN CHEST LEADS] INFERIOR MYOCARDIAL INFARCTION , PROBABLY OLD [40+ ms Q WAVE AND/OR ST/T ABNORMALITY IN II/aVF] ABNORMAL ECG UNCONFIRMED REPORT Electronically signed by : Carlos Noland MD 05/31/2023 06:41:34
--- NOTE | 2023-05-30 15:22 | PC.NURSE ---
Dr. Vasquez at [facility] for pt eval
--- NOTE | 2023-05-30 15:35 | CT_ITS ---
FINAL REPORT TECHNIQUE: thin section axial CT with and without IV contrast supplemented with multiplanar 3-D reconstruction of the head. This study was performed with techniques to keep radiation doses as low as reasonably achievable, (ALARA)individualized dose reduction techniques using automated exposure control or adjustment of mA and/or kV according to the patient's size were employed. CLINICAL HISTORY: Intermittent LUE weak, MORROW, stroke protocol COMPARISON: 05/28/2023 FINDINGS: CTA: The cranial circulation is unremarkable. There is no significant stenosis, aneurysm or occlusion. IMPRESSION: No acute process. Reviewed, Interpreted and Dictated by Braydon Leonardo MD Transcribed by Shelbi Nunn Authenticated and [facility]
--- NOTE | 2023-05-30 15:35 | CT_ITS ---
FINAL REPORT TECHNIQUE: NASCET technique utilized for stenosis evaluation. CLINICAL HISTORY: Intermittent LUE weak, MORROW, stroke protocol FINDINGS: There are widely patent carotid bifurcations. The vertebral arteries are patent and symmetric. There is no significant cervical mass or adenopathy. IMPRESSION: No evidence of carotid stenosis. Reviewed, Interpreted and Dictated by Braydon Leonardo MD Transcribed by Ana Maria Ricks Authenticated and [facility][1]
--- NOTE | 2023-05-30 15:35 | CT_ITS ---
FINAL REPORT TECHNIQUE: Axial CT images were performed through the head. Coronal reformatted images were submitted. This study was performed with techniques to keep radiation doses as low as reasonably achievable (ALARA). Individualized dose reduction techniques using automated exposure control or adjustment of mA and/or kV according to the patient's size were employed. CLINICAL HISTORY: intermittent LUE weakness, MORROW, stroke protocol COMPARISON: 05/28/2023 FINDINGS: The ventricles are normal in size. There is no evidence of hemorrhage. There is no mass or edema identified. There is no abnormal extra-axial fluid seen. The paranasal sinuses are well aerated. IMPRESSION: No acute intracranial process. Reviewed, Interpreted and Dictated by Braydon Leonardo MD Transcribed by Shelbi Nunn Authenticated and [facility]
[2023-05-30 15:36] LABS: Basophils % 0.4 % (0.1-2.0); Eosinophils # 0.4 K/mm3 (0.0-0.4); Eosinophils % 4.3 % (0.1-12.0); Hematocrit 38.1 % (42.0-52.0); Hemoglobin 12.8 g/dL (14.1-18.0); Lymphocytes # 2.2 K/mm3 (0.7-4.5); Lymphocytes % 23.3 % (10-50); Mean Corpuscular HGB Conc 33.7 g/dL (31.8-35.4); Mean Corpuscular Hemoglobin 30.4 pg (27.0-31.2); Mean Corpuscular Volume 90.4 fl (80-94); Mean Platelet Volume 8.2 fl (7.4-10.4); Monocytes # 0.6 K/mm3 (0.1-1.0); Monocytes % 6.1 % (1.7-9.3); Neutrophils # 6.1 K/mm3 (1.8-7.8); Neutrophils % 65.9 % (37.0-80.0); Platelet Count 254 K/mm3 (142-424); Red Blood Count 4.21 M/mm3 (4.60-6.20); Red Cell Distribution Width 13.7 % (11.5-17.5); White Blood Count 9.3 K/mm3 (4.8-10.8)
--- NOTE | 2023-05-30 15:36 | HMH.EDGENADL ---
Discharge Plan Disposition Patient Disposition: Home, Self-Care Condition: Good Chief Complaint: Weakness Prescriptions Prescriptions: No Action aspirin 81 mg tablet,chewable 81 mg PO DAILY Qty: 90 2RF albuterol sulfate 90 mcg/actuation HFA aerosol inhaler 2 inh inhalation Q6H PRN (Reason: shortness of breath or wheezing) 90 Days Qty: 8.5 1RF amlodipine [Norvasc] 5 mg tablet 5 mg PO DAILY Qty: 30 2RF isosorbide mononitrate 60 mg tablet extended release 24 hr 60 mg PO DAILY Qty: 30 2RF gabapentin 400 mg capsule 400 mg PO BID Qty: 60 2RF fluticasone propionate 50 mcg/actuation spray,suspension 2 spray INTRANASAL DAILY Qty: 9.9 2RF nitroglycerin 0.4 mg tablet, sublingual 0.4 mg sublingual Q5M PRN (Reason: chest pain) Qty: 30 0RF Rx Instructions: do not exceed 3 doses per episode cyclobenzaprine 10 mg tablet 10 mg PO TID PRN (Reason: muscle spasm) Qty: 60 0RF furosemide 40 mg tablet 60 mg PO DAILY 90 Days Qty: 135 1RF omeprazole 40 mg capsule,delayed release(DR/EC) 40 mg PO DAILY Qty: 90 2RF fluoxetine 40 mg capsule 40 mg PO DAILY Qty: 30 2RF atorvastatin 40 mg tablet See Rx Instructions .ROUTE .COMPLEX Qty: 90 3RF Rx Instructions: TAKE 1 TABLET BY MOUTH ONCE DAILY AT BEDTIME FOR CHOLESTEROL risperidone 1 mg tablet 1 mg PO BID Qty: 60 1RF spironolactone 100 mg tablet See Rx Instructions .ROUTE .COMPLEX Qty: 90 1RF Dose Instruction: TAKE 1 TABLET BY MOUTH ONCE DAILY FOR FLUID Rx Instructions: TAKE 1 TABLET BY MOUTH ONCE DAILY FOR FLUID trazodone 50 mg tablet 50 mg PO QHS PRN (Reason: sleep) Qty: 30 0RF montelukast 10 mg tablet 10 mg PO DAILY azelastine 205.5 mcg (0.15 %) spray,non-aerosol 2 spray intranasal HS Rx Instructions: administer into each nostril fluticasone furoate-vilanterol [Breo Ellipta] 200-25 mcg/dose blister with device 1 inh inhalation DAILY metoprolol succinate 25 mg tablet extended release 24 hr 25 mg PO DAILY Rx Instructions: TAKE 1 TABLET BY MOUTH ONCE DAILY FOR HIGH BLOOD PRESSURE Referrals Follow up/Referrals: Dio Albarado APRN [Primary Care Provider] - See instructions Activity Restrictions/Add. Instructions Additional Instructions/Restrictions: At this time it was felt you are safe to be discharged home. If new or worsening symptoms please do not hesitate to return the emergency department. Please take your medication as prescribed. Clinical Impressions Clinical Impression: Cervical radiculopathy Discharge ED Provider: Michael Vasquez General Adult HPI General Chief complaint: Weakness Stated complaint: Lt shoulder pain, no accident, soa Time Seen by Provider: 05/30/23 15:01 Mode of Arrival: Ambulatory Source of Information: Patient and Spouse Limitations: No Limitations Description of Symptoms (Recalled from ER Triage Doc. by RN): c/o left shoulder pain that shoots down to his left leg. Describes the pain in his upper shoulder as a cramping tight pain that travels down that side to his leg. Pt states that he was seen here on Sunday for a TIA. STates these are the same symptoms that he was having on Sunday has not changed. Family and pt are concerned due to the continued symptoms. Family states that pt has been having moments that he yunior slumps his head over and she has to tap his face to get him to get him back alert, this has been happening off and on since Sunday as well. NIHSS 0 , pt has more difficult lifting the left leg but states this is due to pain in his hip. History of Present Illness HPI narrative: Patient is a 48-year-old male with past medical history of TIA, obesity, previous smoker, COPD on nocturnal CPAP, hyperlipidemia who presents emergency department for evaluation of multiple complaints. History is obtained by patient at bedside. At approximately 1:30 PM patient had left upper chest pain and left neck pain radiating
--- NOTE | 2023-05-30 15:39 | PC.NURSE ---
POC glucose 104. Pt in CT at this time.
[2023-05-30 15:42] LABS: Alanine Aminotransferase 25 U/L (12-78); Albumin Level 3.9 g/dl (3.5-5.0); Albumin/Globulin Ratio 1.3 (1.1-1.8); Alkaline Phosphatase 88 U/L (38-126); Anion Gap 12.7 mEq/L (5-15); Aspartate Amino Transferase 35 U/L (17-59); Bilirubin,Total 0.3 mg/dl (0.2-1.3); Blood Urea Nitrogen 12 mg/dl (9-20); Calcium 8.8 mg/dl (8.4-10.2); Carbon Dioxide 25 mmol/L (22.0-30.0); Chloride 105 mmol/L (98-107); Creatinine Clearance Estimated 80 mL/min (50-200); Estimated Glomerular Filt Rate 65 ml/min (>60); GFR (African American) 78 ML/MIN (>60); Globulin 3.1 g/dL (1.3-3.2); Glucose 109 mg/dl (74-100); Potassium 3.7 mmoL/L (3.5-5.1); Sodium 139 mmol/L (136-145)
[2023-05-30 15:42] LABS: POC Glucose,Bedside 104 (70-110)
--- NOTE | 2023-05-30 15:44 | CT_ITS ---
FINAL REPORT TECHNIQUE: The patient was injected with IV contrast. Axial images were obtained through the chest in a PE protocol. 3-D reconstruction images were also performed. Individualized dose reduction techniques using automated exposure control or adjustment of the MA and/or KV according to patient's size were employed. CLINICAL HISTORY: LUE LLE pain, MORROW, weak FINDINGS: The pulmonary arteries are suboptimally opacified. No pulmonary artery filling defects are identified to suggest PE. There is no aortic dissection. There is no axillary adenopathy. There are few small scattered mediastinal lymph nodes. The heart size is normal. There is no pericardial or pleural effusion. Limited images of the upper abdomen are unremarkable. No suspicious infiltrate or nodule is identified. There is linear atelectasis at the left base. IMPRESSION: No pulmonary embolus or dissection. Reviewed, Interpreted and Dictated by Braydon Leonardo MD Transcribed by Ana Maria Ricks Authenticated and [facility]
[2023-05-30 15:48] LABS: Magnesium 1.8 mg/dl (1.6-2.3)
[2023-05-30 16:00] LABS: Troponin I < 0.01 ng/ml (0.00-0.034)
--- NOTE | 2023-05-30 16:26 | PC.NURSE ---
Contacting [facility] for Neuro consult for Dr. Vasquez
--- NOTE | 2023-05-30 16:34 | PC.NURSE ---
Calling [facility] back once we have CT scan reads. Contacting [facility] for Dr. Vasquez; awaiting a call back.
--- NOTE | 2023-05-30 17:41 | PC.NURSE ---
PT GETTING READY TO EAT. I OBSERVED PT DRINKING WITH NO PROBLEMS SWALLOWING
--- NOTE | 2023-05-30 18:10 | EXP.MED.CON ---
History of Present Illness *Admission Date: 05/30/23 *Reason for visit:: neck pain *History of present illness: 48 yo M who presented to the ER with complaint of left shoulder pain that shoots down to his left arm and leg. He actually presented to the ER 2 days ago with similar deficits that resolved in the ER. On arrival to the ER, he describes the pain in his upper shoulder is cramping type pain that travels down his left side and occasionally into his leg. Currently pain-free on my exam. States that the pain sometimes shoots from his neck down his hand. ER work-up relatively unremarkable with normal labs. Imaging with CTA of neck and head showing no dissection or arterial stenosis. Patient is alert at baseline neurologic function. Comorbidities include history of TIA, obesity, previous smoker, COPD, OSH, hyperlipidemia, and previous finding of cervical degenerative disc disease. ER requested medicine consult for additional evaluation and consideration for admission versus discharge home. My evaluation, patient has reproducible pain when he turns his head to the side. Pain down his left arm when he looks to the right and pressure is applied to the top of his head. No finding of focal or neurologic deficits. Of note, has a follow-up with cardiology tomorrow due to his pain and cardiac history. Hemodynamically stable on review of vitals. Patient denies any confusion, headache, chest pain, shortness of breath, nausea or vomiting. [facility] Disclaimer: The information contained in this section may have been updated after the patient was seen, as this information can be updated by other users. Medical History Allergic rhinitis Allergic rhinitis, unspecified Anxiety Back pain CAD (coronary artery disease), ute coronary artery Chest pain COVID-19 COVID-19 virus infection Dyspnea Dyspnea on exertion Dyspnea on exertion Edema Encounter for pre-operative cardiovascular clearance Ex-smoker GERD (gastroesophageal reflux disease) History of hyperlipidemia Hypokalemia Major depressive disorder Moderate persistent asthma Morbid obesity due to excess calories Obesity (BMI 30-39.9) HARSH (obstructive sleep apnea) Renal insufficiency Stopped smoking with greater than 15 pack year history Stopped smoking with greater than 20 pack year history Tobacco abuse disorder Surgical History History of appendectomy Family History Diabetes Coronary artery disease Hyperlipidemia Hypertension Social History Smoking Status: Current every day smoker tobacco type: cigarettes packs per day: 1 second hand exposure: No alcohol intake: never substance use type: denies use current occupational status: disabled Travel in the last 8 weeks: Inside the [place] household members: spouse housing: house lives independently: No marital status: number of children: 0 current occupational exposures/hazards: No caffeine: Yes do you feel safe at home: Yes victim of physical abuse: No victim of emotional abuse: No victim of sexual abuse: No would you like helpful sources: No Review of Systems Review of Systems Review of systems (narrative): 14 point review of systems performed, pertinent positives and negatives as per HPI Exam Data for Last 24 hours Vital signs and Labs for Last 24 Hours: Pulse Resp BP Pulse Ox O2 Del Method 65 18 106/64 L 96 Room Air 05/30/23 16:30 05/30/23 14:18 05/30/23 16:30 05/30/23 16:30 05/30/23 16:30 Laboratory Results - last 24 hr 05/30/23 15:15: WBC 9.3, RBC 4.21 L, Hgb 12.8 L, Hct 38.1 L, MCV 90.4, MCH 30.4, MCHC 33.7, RDW 13.7, Plt Count 254, MPV 8.2, Neut % (Auto) 65.9, Lymph % (Auto) 23.3, [place] % (Auto) 6.1, Eos % (Auto) 4.3, Baso % (Auto) 0.4, Neut # (Aut
== END 2023-05-30 18:22 | disposition home or self-care (01) ==
PROVIDERS: Emergency Provider Emergency Medicine; PCP Nurse Practitioner Family
DX: M54.12 Radiculopathy, cervical region (principal); E66.01 Morbid (severe) obesity due to excess calories; I10 Essential (primary) hypertension; E78.2 Mixed hyperlipidemia; F17.210 Nicotine dependence, cigarettes, uncomplicated; K21.9 Gastro-esophageal reflux disease without esophagitis; J45.909 Unspecified asthma, uncomplicated; I25.10 Atherosclerotic heart disease of native coronary artery without angina pectoris; F41.9 Anxiety disorder, unspecified; F33.9 Major depressive disorder, recurrent, unspecified; G47.33 Obstructive sleep apnea (adult) (pediatric)
CPT/HCPCS: 70450; 70496; 70498; 71275; 80053; 82962; 83735; 84484; 85025; 93005; 99285; Q9967

== ENCOUNTER 2023-06-05 22:01 | Emergency (ER) | payer MEDICARE, OTHER, SELFPAY ==
[2023-06-05 22:04] VITALS: BP 119/70; PULSE 73; RESP 20; TEMP 36.4; O2SAT 98; BMI 44.6
--- NOTE | 2023-06-05 22:04 | ECG_ITS ---
APPROVED REPORT Exam: Resting ECG HR:71 bpm ECG Measurements Heart Rate 71 AXES CA 201 P 62 QRSd 95 QRS 23 QT 432 T 42 QTc 455 Conclusion SINUS RHYTHM INFERIOR MYOCARDIAL INFARCTION , PROBABLY OLD [40+ ms Q WAVE AND/OR ST/T ABNORMALITY IN II/aVF] ABNORMAL ECG UNCONFIRMED REPORT Electronically signed by : Carlos Noland MD 06/07/2023 18:41:28
--- NOTE | 2023-06-05 22:04 | XR_ITS ---
PROCEDURE INFORMATION: Exam: XR Chest Exam date and time: 06/05/2023 10:21 PM Age: 48 years old Clinical indication: Sternal or substernal pain; Patient HX: Chest pain, cough, smoker. TECHNIQUE: Imaging protocol: Radiologic exam of the chest. Views: 1 view. COMPARISON: CR XR CHEST PORTABLE 05/28/2023 10:45 AM FINDINGS: Lungs: There is parenchymal opacity in the left mid lung and right lower lobe which could be related to vascular crowding but underlying consolidation is not excluded. Pleural spaces: Unremarkable. No pleural effusion. No pneumothorax. Heart/Mediastinum: Stable cardiac and mediastinal contours. Bones/joints: Unremarkable. IMPRESSION: There is parenchymal opacity in the left mid lung and right lower lobe which could be related to vascular crowding but underlying consolidation is not excluded.
--- NOTE | 2023-06-05 22:07 | HMH.EDGENADL ---
Discharge Plan Disposition Patient Disposition: Home, Self-Care Condition: Good Prescriptions Prescriptions: No Action aspirin 81 mg tablet,chewable 81 mg PO DAILY Qty: 90 2RF albuterol sulfate 90 mcg/actuation HFA aerosol inhaler 2 inh inhalation Q6H PRN (Reason: shortness of breath or wheezing) 90 Days Qty: 8.5 1RF isosorbide mononitrate 60 mg tablet extended release 24 hr 60 mg PO DAILY Qty: 30 2RF gabapentin 400 mg capsule 400 mg PO BID Qty: 60 2RF fluticasone propionate 50 mcg/actuation spray,suspension 2 spray INTRANASAL DAILY Qty: 9.9 2RF nitroglycerin 0.4 mg tablet, sublingual 0.4 mg sublingual Q5M PRN (Reason: chest pain) Qty: 30 0RF Rx Instructions: do not exceed 3 doses per episode cyclobenzaprine 10 mg tablet 10 mg PO TID PRN (Reason: muscle spasm) Qty: 60 0RF clopidogrel [Plavix] 75 mg tablet 75 mg PO DAILY Qty: 30 2RF furosemide 40 mg tablet 60 mg PO DAILY 90 Days Qty: 135 1RF omeprazole 40 mg capsule,delayed release(DR/EC) 40 mg PO DAILY Qty: 90 2RF fluoxetine 40 mg capsule 40 mg PO DAILY Qty: 30 2RF atorvastatin 40 mg tablet See Rx Instructions .ROUTE .COMPLEX Qty: 90 3RF Rx Instructions: TAKE 1 TABLET BY MOUTH ONCE DAILY AT BEDTIME FOR CHOLESTEROL spironolactone 100 mg tablet See Rx Instructions .ROUTE .COMPLEX Qty: 90 1RF Dose Instruction: TAKE 1 TABLET BY MOUTH ONCE DAILY FOR FLUID Rx Instructions: TAKE 1 TABLET BY MOUTH ONCE DAILY FOR FLUID trazodone 50 mg tablet 50 mg PO QHS PRN (Reason: sleep) Qty: 30 0RF risperidone 1 mg tablet 1 mg PO BID Qty: 60 1RF montelukast 10 mg tablet 10 mg PO DAILY azelastine 205.5 mcg (0.15 %) spray,non-aerosol 2 spray intranasal HS Rx Instructions: administer into each nostril fluticasone furoate-vilanterol [Breo Ellipta] 200-25 mcg/dose blister with device 1 inh inhalation DAILY tramadol 50 mg tablet 50 mg PO Q6H PRN (Reason: pain) 3 Days Qty: 12 0RF metoprolol succinate 25 mg tablet extended release 24 hr 25 mg PO DAILY Rx Instructions: TAKE 1 TABLET BY MOUTH ONCE DAILY FOR HIGH BLOOD PRESSURE Referrals Follow up/Referrals: Dio Albarado APRN [Primary Care Provider] - See instructions Activity Restrictions/Add. Instructions Additional Instructions/Restrictions: Please follow-up with your primary care provider. Please return to the emergency department if you develop any new or worsening symptoms or become concerned for your health. Clinical Impressions Clinical Impression: Chest pain, Hypokalemia Discharge ED Provider: Michael Vasquez General Adult HPI <Michael Vasquez MD - Last Filed: 06/05/23 23:58> General Chief complaint: Chest Pain Stated complaint: CP Time Seen by Provider: 06/05/23 22:04 History of Present Illness HPI narrative: Patient is a 48-year-old male with past medical history of TIA, obesity, previous smoker, COPD on nocturnal CPAP, hyperlipidemia who presents emergency department for evaluation of extremity pain. History obtained by patient at bedside and per chart review, approximate 2 hours prior to arrival patient had cramping pain in his left upper and left lower extremity. Patient has been seen multiple times in the emergency department over the last week. Patient states that he has had waxing and waning symptoms of pain since his last evaluation and due to persistence he presents for continued evaluation. Patient denies any new extremity weakness. He does have left-sided chest pain radiating down his arm that is concerning to him. No other acute complaints at this time. Related Data Home Medications Medication Instructions Recorded Confirmed metoprolol succinate 25 mg 25 mg PO DAILY High blood pressure 12/11/22 06/04/23 tablet,extended release 24 hr azelastine 205.5 mcg (0.15 %) 2 spray intranasal HS Breathing 01/31/23 06/04/23 nasal spray problems fluticasone
[2023-06-05 22:24] LABS: Chloride 104 mmol/L (98-107)
[2023-06-05 22:25] LABS: Basophils # 0.1 K/mm3 (0-0.2); Basophils % 0.4 % (0.1-2.0); Eosinophils # 0.5 K/mm3 (0.0-0.4); Eosinophils % 3.9 % (0.1-12.0); Hematocrit 37.7 % (42.0-52.0); Lymphocytes # 3.1 K/mm3 (0.7-4.5); Lymphocytes % 25.7 % (10-50); Mean Corpuscular HGB Conc 34.6 g/dL (31.8-35.4); Mean Corpuscular Hemoglobin 30.4 pg (27.0-31.2); Mean Corpuscular Volume 87.8 fl (80-94); Mean Platelet Volume 8.4 fl (7.4-10.4); Monocytes # 0.7 K/mm3 (0.1-1.0); Neutrophils # 7.6 K/mm3 (1.8-7.8); Platelet Count 284 K/mm3 (142-424); Potassium 3.2 mmoL/L (3.5-5.1); Red Blood Count 4.29 M/mm3 (4.60-6.20); Red Cell Distribution Width 13.6 % (11.5-17.5); Sodium 138 mmol/L (136-145); White Blood Count 11.9 K/mm3 (4.8-10.8)
[2023-06-05 22:27] LABS: Alanine Aminotransferase 29 U/L (12-78); Aspartate Amino Transferase 27 U/L (17-59); Blood Urea Nitrogen 9 mg/dl (9-20); Creatinine Clearance Estimated 80 mL/min (50-200); Estimated Glomerular Filt Rate 65 ml/min (>60); GFR (African American) 78 ML/MIN (>60)
[2023-06-05 22:28] LABS: Albumin Level 3.7 g/dl (3.5-5.0); Albumin/Globulin Ratio 1.2 (1.1-1.8); Alkaline Phosphatase 105 U/L (38-126); Anion Gap 13.2 mEq/L (5-15); Bilirubin,Total 0.3 mg/dl (0.2-1.3); Calcium 9.4 mg/dl (8.4-10.2); Carbon Dioxide 24 mmol/L (22.0-30.0); Globulin 3.1 g/dL (1.3-3.2); Glucose 104 mg/dl (74-100); Total Protein,Serum 6.8 g/dl (6.3-8.2)
[2023-06-05 22:30] VITALS: BP 88/59; PULSE 80; RESP 18; O2SAT 95
[2023-06-05 22:34] VITALS: BP 93/58; PULSE 73; RESP 20; O2SAT 95
[2023-06-05 22:40] LABS: Troponin I < 0.01 ng/ml (0.00-0.034)
[2023-06-05 23:00] VITALS: BP 103/60; PULSE 74; RESP 18; O2SAT 95
[2023-06-05 23:31] VITALS: BP 96/49; PULSE 72; RESP 18; O2SAT 94
[2023-06-06] VITALS: BP 99/67; PULSE 79; O2SAT 96
[2023-06-06 00:30] VITALS: BP 100/62; PULSE 71; O2SAT 96
[2023-06-06 01:00] VITALS: PULSE 52; O2SAT 93
[2023-06-06 01:15] VITALS: PULSE 60; O2SAT 94
[2023-06-06 01:31] VITALS: BP 94/64; PULSE 75; O2SAT 94
[2023-06-06 01:49] LABS: Troponin I < 0.01 ng/ml (0.00-0.034)
[2023-06-06 01:55] VITALS: BP 94/64; PULSE 68; RESP 18; TEMP 36.8
== END 2023-06-06 02:02 | disposition home or self-care (01) ==
PROVIDERS: Emergency Provider Emergency Medicine; PCP Nurse Practitioner Family
DX: R07.9 Chest pain, unspecified (principal); E87.6 Hypokalemia; J44.9 Chronic obstructive pulmonary disease, unspecified; E78.5 Hyperlipidemia, unspecified; E66.9 Obesity, unspecified; F41.9 Anxiety disorder, unspecified; I25.10 Atherosclerotic heart disease of native coronary artery without angina pectoris; K21.9 Gastro-esophageal reflux disease without esophagitis; F32.9 Major depressive disorder, single episode, unspecified; J45.40 Moderate persistent asthma, uncomplicated; G47.33 Obstructive sleep apnea (adult) (pediatric); F17.210 Nicotine dependence, cigarettes, uncomplicated; Z86.73 Personal history of transient ischemic attack (TIA), and cerebral infarction without residual deficits
CPT/HCPCS: 71045; 80053; 84484; 85025; 93005; 96374; 99285; J0131

== ENCOUNTER → 2023-06-07 13:20 | Outpatient (CLI) | payer MEDICARE, OTHER, SELFPAY | PROVIDERS: PCP Nurse Practitioner Family; Visit Provider Specialist | DX: G47.33 Obstructive sleep apnea (adult) (pediatric) (principal) | CPT/HCPCS: 94762 ==

== ENCOUNTER → 2023-06-19 14:39 | Outpatient (CLI) | payer MEDICARE, OTHER, SELFPAY | PROVIDERS: PCP Nurse Practitioner Family; Visit Provider Specialist | DX: G45.8 Other transient cerebral ischemic attacks and related syndromes (principal) | CPT/HCPCS: 36415 ==

== ENCOUNTER 2023-06-19 15:02 | Emergency (ER) | payer MEDICARE, OTHER, SELFPAY ==
--- NOTE | 2023-06-19 15:02 | ECG_ITS ---
APPROVED REPORT Exam: Resting ECG HR:89 bpm ECG Measurements Heart Rate 89 AXES DE 179 P 43 QRSd 97 QRS 13 QT 388 T 50 QTc 434 Conclusion SINUS RHYTHM LOW QRS VOLTAGE IN PRECORDIAL LEADS [QRS DEFLECTION < 1.0 mV IN CHEST LEADS] INFERIOR MYOCARDIAL INFARCTION , PROBABLY OLD [40+ ms Q WAVE AND/OR ST/T ABNORMALITY IN II/aVF] POSSIBLE ANTEROLATERAL MYOCARDIAL INFARCTION , PROBABLY OLD [30 ms Q WAVE IN I/aVL/V3-V6] ABNORMAL ECG UNCONFIRMED REPORT Electronically signed by : Carlos Noland MD 06/22/2023 16:12:56
[2023-06-19 15:04] VITALS: BP 112/82; PULSE 87; RESP 18; TEMP 36.7; O2SAT 94; BMI 44.6
--- NOTE | 2023-06-19 15:11 | XR_ITS ---
FINAL REPORT CLINICAL HISTORY: chest pain COMPARISON: 01/01/2023 FINDINGS: SINGLE VIEW CHEST The heart is normal in size. The mediastinum is unremarkable. The lungs are clear. There is no pneumothorax. IMPRESSION: No acute process. Reviewed, Interpreted and Dictated by Karlos Foss III, MD Transcribed by Ana Maria Ricks Authenticated and [facility]
[2023-06-19 15:24] LABS: Chloride 107 mmol/L (98-107); Potassium 3.8 mmoL/L (3.5-5.1); Sodium 140 mmol/L (136-145)
[2023-06-19 15:25] LABS: Basophils # 0.1 K/mm3 (0-0.2); Basophils % 0.4 % (0.1-2.0); Eosinophils # 0.5 K/mm3 (0.0-0.4); Eosinophils % 4.3 % (0.1-12.0); Hematocrit 40.1 % (42.0-52.0); Hemoglobin 13.2 g/dL (14.1-18.0); Lymphocytes # 2.6 K/mm3 (0.7-4.5); Lymphocytes % 24.3 % (10-50); Mean Corpuscular HGB Conc 32.9 g/dL (31.8-35.4); Mean Corpuscular Hemoglobin 29.6 pg (27.0-31.2); Mean Corpuscular Volume 90.1 fl (80-94); Mean Platelet Volume 7.7 fl (7.4-10.4); Monocytes # 0.5 K/mm3 (0.1-1.0); Monocytes % 4.2 % (1.7-9.3); Neutrophils # 7.1 K/mm3 (1.8-7.8); Neutrophils % 66.8 % (37.0-80.0); Platelet Count 255 K/mm3 (142-424); Red Blood Count 4.45 M/mm3 (4.60-6.20); Red Cell Distribution Width 13.9 % (11.5-17.5); White Blood Count 10.7 K/mm3 (4.8-10.8)
[2023-06-19 15:27] LABS: Anion Gap 14.8 mEq/L (5-15); Blood Urea Nitrogen 8 mg/dl (9-20); Calcium 8.7 mg/dl (8.4-10.2); Carbon Dioxide 22 mmol/L (22.0-30.0); Creatinine Clearance Estimated 80 mL/min (50-200); Estimated Glomerular Filt Rate 65 ml/min (>60); GFR (African American) 78 ML/MIN (>60); Glucose 139 mg/dl (74-100)
[2023-06-19 15:30] VITALS: BP 108/68; PULSE 86; O2SAT 94
[2023-06-19 15:39] LABS: Troponin I < 0.01 ng/ml (0.00-0.034)
--- NOTE | 2023-06-19 15:47 | PC.NURSE ---
rounded on pt he was given a water, at bs
--- NOTE | 2023-06-19 15:47 | HMH.EDGENADL ---
Discharge Plan Disposition Patient Disposition: Home, Self-Care Condition: Good Prescriptions Prescriptions: No Action aspirin 81 mg tablet,chewable 81 mg PO DAILY Qty: 90 2RF albuterol sulfate 90 mcg/actuation HFA aerosol inhaler 2 inh inhalation Q6H PRN (Reason: shortness of breath or wheezing) 90 Days Qty: 8.5 1RF isosorbide mononitrate 60 mg tablet extended release 24 hr 60 mg PO DAILY Qty: 30 2RF gabapentin 400 mg capsule 400 mg PO BID Qty: 60 2RF fluticasone propionate 50 mcg/actuation spray,suspension 2 spray INTRANASAL DAILY Qty: 9.9 2RF nitroglycerin 0.4 mg tablet, sublingual 0.4 mg sublingual Q5M PRN (Reason: chest pain) Qty: 30 0RF Rx Instructions: do not exceed 3 doses per episode fluoxetine 40 mg capsule 40 mg PO DAILY Qty: 30 2RF trazodone 100 mg tablet 100 mg PO QHS PRN (Reason: insomnia) Qty: 30 1RF cyclobenzaprine 10 mg tablet 10 mg PO TID PRN (Reason: muscle spasm) Qty: 60 0RF clopidogrel [Plavix] 75 mg tablet 75 mg PO DAILY Qty: 30 2RF furosemide 40 mg tablet 60 mg PO DAILY 90 Days Qty: 135 1RF omeprazole 40 mg capsule,delayed release(DR/EC) 40 mg PO DAILY Qty: 90 2RF atorvastatin 40 mg tablet See Rx Instructions .ROUTE .COMPLEX Qty: 90 3RF Rx Instructions: TAKE 1 TABLET BY MOUTH ONCE DAILY AT BEDTIME FOR CHOLESTEROL spironolactone 100 mg tablet See Rx Instructions .ROUTE .COMPLEX Qty: 90 1RF Dose Instruction: TAKE 1 TABLET BY MOUTH ONCE DAILY FOR FLUID Rx Instructions: TAKE 1 TABLET BY MOUTH ONCE DAILY FOR FLUID risperidone 1 mg tablet 1 mg PO BID Qty: 60 1RF montelukast 10 mg tablet 10 mg PO DAILY azelastine 205.5 mcg (0.15 %) spray,non-aerosol 2 spray intranasal HS Rx Instructions: administer into each nostril fluticasone furoate-vilanterol [Breo Ellipta] 200-25 mcg/dose blister with device 1 inh inhalation DAILY tramadol 50 mg tablet 50 mg PO Q6H PRN (Reason: pain) 3 Days Qty: 12 0RF metoprolol succinate 25 mg tablet extended release 24 hr 25 mg PO DAILY Rx Instructions: TAKE 1 TABLET BY MOUTH ONCE DAILY FOR HIGH BLOOD PRESSURE Referrals Follow up/Referrals: Dio Albarado APRN [Primary Care Provider] - See instructions Activity Restrictions/Add. Instructions Additional Instructions/Restrictions: You were evaluated in the emergency department today. Please follow-up closely with your primary care provider over the next 3 days. It is important to see them for further testing to determine why you are having this recurrent chest pain. I also recommend rescheduling your outpatient MRI. Return to the emergency department for new or worsening symptoms. Clinical Impressions Clinical Impression: Recurrent chest pain Instructions Patient Instructions: DI for Atypical Chest Pain Discharge ED Provider: Zara Chinchilla General Adult HPI General Chief complaint: Chest Pain Stated complaint: Chest Pain Time Seen by Provider: 06/19/23 15:08 Mode of Arrival: Wheelchair Source of Information: Patient Limitations: No Limitations Description of Symptoms (Recalled from ER Triage Doc. by RN): Pt reports L sided chest pain, denies radiation of pain. Pt reports was here for MRI of brain while in [facility] began having cp, states forgot his nitro tablets at home. Pt reports had chest pain episode lastnight, took 2 nitro tablets, pain relieved. History of Present Illness HPI narrative: This patient is a 48-year-old male with a history of recurrent chest pain on nitroglycerin, obesity, recent evaluation for TIA, hypertension, hyperlipidemia, CHF, COPD, and HARSH presented to the emergency department for evaluation with concern for recurrence of his usual chest pain. He states that he was waiting for an MRI head here and was sitting in the lobby when he developed left-sided chest pain radiating down his left arm. He states that he always gets this pain daily,
[2023-06-19 16:00] VITALS: BP 117/81; PULSE 86; O2SAT 96
--- NOTE | 2023-06-19 16:09 | PC.NURSE ---
pt called out said he was having an anxiety attack, Dr Chinchilla in to see pt.
[2023-06-19 16:36] VITALS: BP 117/72; PULSE 75; RESP 20; TEMP 36.8; O2SAT 98
== END 2023-06-19 16:38 | disposition home or self-care (01) ==
PROVIDERS: Emergency Provider Emergency Medicine; PCP Nurse Practitioner Family
DX: R07.9 Chest pain, unspecified (principal); M79.602 Pain in left arm; I11.0 Hypertensive heart disease with heart failure; I50.9 Heart failure, unspecified; J44.9 Chronic obstructive pulmonary disease, unspecified; E78.5 Hyperlipidemia, unspecified; G47.33 Obstructive sleep apnea (adult) (pediatric); F41.9 Anxiety disorder, unspecified; F32.9 Major depressive disorder, single episode, unspecified; J45.40 Moderate persistent asthma, uncomplicated; N28.9 Disorder of kidney and ureter, unspecified; F17.210 Nicotine dependence, cigarettes, uncomplicated
CPT/HCPCS: 36415; 71045; 80048; 84484; 85025; 93005; 99285

== ENCOUNTER → 2023-06-22 14:10 | Outpatient (CLI) | payer MEDICARE, OTHER, SELFPAY ==
--- NOTE | 2023-06-22 14:15 | CA_ITS ---
APPROVED REPORT EXAM: Comprehensive 2D, Doppler, and color-flow Echocardiogram Rx Specialist: REBEKAH Llanes, RVS Ht: 5 ft 11 in Wt: 321lbs BSA: 2.58 BP: 110/66 mmHg Indications: TIA, Smoker, CAD, HARSH, Obesity, WRIGHT Echo Enhancing Agent Indication: Rule Out Septal Defect Agent(s) / Amount(s) Used: Agitated Saline 20 cc Comments: Negative bubble study. No interatrial shunt detected. 2D Dimensions Aortic Root 2.93 cm LA Volume 86.20 mL Left Atrium 4.53 cm LA Volume Index 32.70 mL/m2 (M/F) 16-34 LVOT 1.94 cm (M/F) 1.5-2.5 M-Mode Dimensions RVDd 4.53 cm (0.9-2.6) LA Diam 4.05 cm (1.9-4.0) LVDd 5.00 cm (3.5-5.7) Ao Diam 3.30 cm (2.0-3.7) LVDs 3.27 cm (3.5-5.7) IVSd 1.17 cm (0.6-1.1) PWd 1.17 cm (0.6-1.1) EF (Teich) 63.50% EPSs 0.28 cm FS 34.60% EDV (Teich) 118.20 mL TAPSE 2.84 (<1.7) ESV (Teich) 43.20 mL LV Diastology E Decel Time 263.00 (160-240 msec) E/A Ratio 1.19 MED E' 7.00 (< 7 cm/sec) MED A' 8.70 cm/s E'/MED E' Ratio 12.54 (>14) LAT E' 5.50 (<10 cm/sec) LAT A' 10.00 cm/s E/LAT E' Ratio 15.96 (>14) Aortic Valve LVOT Max 126.00 (70-110 cm/s) LVOT VTI 24.99 cm AoV Peak Moiz. 134.00 (50-130 cm/s) AO Peak GR. 7.20 mmHg AO Mean GR. 3.60 (<5 mmHg) AO VTI 26.42 (18-25 cm) GERMAIN (VTI) 2.80 (2.5-4.5 cm2) Mitral Valve MV A Velocity 74.00 (40-130 cm/s) E/A Ratio 1.19 MV Decel. Time 263.00 (160-240 ms) MV Mean Gr. 1.40 (<2mmHg) Pulmonary Valve PV Peak Velocity 94.00 (50-150 cm/s) Left Ventricle The left ventricle is normal size. The left ventricular systolic function is normal. The left ventricular ejection fraction is within the normal range. There is normal left ventricular wall thickness. There is mild hypokinesis of the basal inferoseptal LV wall. Diastolic function is indeterminate. LVEF is 55%. Right Ventricle The right ventricle is mildly dilated. The right ventricular systolic function is normal. Atria The left atrium size is normal. The right atrium size is mildly dilated. There is no Doppler evidence of interatrial shunt. Saline bubble contrast intravenous injection at rest and with Valsalva does not demonstrate PFO. Aortic Valve The aortic valve opens well. There is no aortic valvular stenosis. Trace aortic regurgitation. Mitral Valve The mitral valve is normal in structure. No evidence of mitral valve stenosis. Trace mitral regurgitation. Tricuspid Valve The tricuspid valve leaflets are thin and pliable. Trace tricuspid regurgitation. There is insufficient TR jet to estimate RVSP. Pulmonic Valve The pulmonary valve is normal in structure. Trace pulmonic regurgitation. Great Vessels The aortic root is normal in size. The ascending aorta is normal in size. IVC is normal in size and collapses >50% with inspiration. Pericardium There is no pericardial effusion. Other Information Study Quality: Fair Conclusion Normal biventricular systolic function. Mild hypokinesis of the basal inferior septal LV wall. Mild RV dilation. Mild RA dilation. No significant valvular stenosis or regurgitation. Agitated saline administration (bubble study) shows no evidence of PFO at rest and with Valsalva. Electronically signed by : Christiana Cardoso, 06/26/2023 23:32:20
== END ==
PROVIDERS: PCP Nurse Practitioner Family; Visit Provider Specialist
DX: I25.10 Atherosclerotic heart disease of native coronary artery without angina pectoris (principal)
CPT/HCPCS: 93306

== ENCOUNTER → 2023-06-30 09:02 | Outpatient (CLI) | payer MEDICARE, OTHER, SELFPAY ==
[2023-06-30 09:55] LABS: Chloride 105 mmol/L (98-107)
[2023-06-30 09:56] LABS: Potassium 4.2 mmoL/L (3.5-5.1); Sodium 139 mmol/L (136-145)
[2023-06-30 09:58] LABS: Alanine Aminotransferase 24 U/L (12-78); Alkaline Phosphatase 81 U/L (38-126); Aspartate Amino Transferase 25 U/L (17-59); Bilirubin,Total 0.3 mg/dl (0.2-1.3); Blood Urea Nitrogen 16 mg/dl (9-20); Estimated Glomerular Filt Rate 65 ml/min (>60); GFR (African American) 78 ML/MIN (>60)
[2023-06-30 09:59] LABS: Albumin Level 3.8 g/dl (3.5-5.0); Albumin/Globulin Ratio 1.4 (1.1-1.8); Anion Gap 13.2 mEq/L (5-15); Carbon Dioxide 25 mmol/L (22.0-30.0); Globulin 2.7 g/dL (1.3-3.2); Glucose 86 mg/dl (74-100); Total Protein,Serum 6.5 g/dl (6.3-8.2)
== END ==
PROVIDERS: PCP Nurse Practitioner Family; Visit Provider Specialist
DX: I99.8 Other disorder of circulatory system (principal); R29.810 Facial weakness; R42 Dizziness and giddiness
CPT/HCPCS: 36415; 80053

== ENCOUNTER 2023-07-01 16:16 | Emergency (ER) | payer MEDICARE, OTHER, SELFPAY ==
[2023-07-01 17:20] VITALS: BP 137/73; PULSE 78; RESP 18; TEMP 36.8; O2SAT 96; BMI 44.3
--- NOTE | 2023-07-01 17:22 | XR_ITS ---
PROCEDURE INFORMATION: Exam: XR Left Knee Exam date and time: 07/01/2023 5:26 PM Age: 48 years old Clinical indication: Pain; Knee; Left TECHNIQUE: Imaging protocol: Radiologic exam of the left knee. Views: 3 views. COMPARISON: CR XR KNEE LT 4V 10/18/2021 10:56 AM FINDINGS: Bones/joints: Normal. Soft tissues: Normal. IMPRESSION: No acute findings.
--- NOTE | 2023-07-01 18:23 | EXP.UTC ---
Discharge Plan Disposition Patient Disposition: Home, Self-Care Condition: Good Prescriptions Prescriptions: No Action aspirin 81 mg tablet,chewable 81 mg PO DAILY Qty: 90 2RF albuterol sulfate 90 mcg/actuation HFA aerosol inhaler 2 inh inhalation Q6H PRN (Reason: shortness of breath or wheezing) 90 Days Qty: 8.5 1RF fluticasone propionate 50 mcg/actuation spray,suspension 2 spray INTRANASAL DAILY Qty: 9.9 2RF fluoxetine 40 mg capsule 40 mg PO DAILY Qty: 30 2RF trazodone 100 mg tablet 100 mg PO QHS PRN (Reason: insomnia) Qty: 30 1RF cyclobenzaprine 10 mg tablet 10 mg PO TID PRN (Reason: muscle spasm) Qty: 60 0RF gabapentin 400 mg capsule 400 mg PO BID Patient Comments: pt notes taking once daily furosemide 40 mg tablet 60 mg PO DAILY 90 Days Qty: 135 1RF omeprazole 40 mg capsule,delayed release(DR/EC) 40 mg PO DAILY Qty: 90 2RF atorvastatin 40 mg tablet See Rx Instructions .ROUTE .COMPLEX Qty: 90 3RF Rx Instructions: TAKE 1 TABLET BY MOUTH ONCE DAILY AT BEDTIME FOR CHOLESTEROL risperidone 1 mg tablet 1 mg PO BID Qty: 60 1RF montelukast 10 mg tablet 10 mg PO DAILY azelastine 205.5 mcg (0.15 %) spray,non-aerosol 2 spray intranasal HS Rx Instructions: administer into each nostril fluticasone furoate-vilanterol [Breo Ellipta] 200-25 mcg/dose blister with device 1 inh inhalation DAILY spironolactone 100 mg tablet See Rx Instructions .ROUTE .COMPLEX Rx Instructions: TAKE 1 TABLET BY MOUTH ONCE DAILY FOR FLUID clopidogrel [Plavix] 75 mg tablet 75 mg PO DAILY isosorbide mononitrate 60 mg tablet extended release 24 hr 60 mg PO DAILY nitroglycerin 0.4 mg tablet, sublingual See Rx Instructions .ROUTE .COMPLEX Rx Instructions: DISSOLVE ONE TABLET UNDER THE TONGUE EVERY 5 MINUTES NEEDED FOR CHEST PAIN. DO NOT EXCEED A TOTAL OF 3 DOSES IN 15 MINUTES metoprolol succinate 25 mg tablet extended release 24 hr 25 mg PO DAILY Rx Instructions: TAKE 1 TABLET BY MOUTH ONCE DAILY FOR HIGH BLOOD PRESSURE Referrals Follow up/Referrals: Dio Albarado APRN [Primary Care Provider] - See instructions Activity Restrictions/Add. Instructions Additional Instructions/Restrictions: follow up next week with primary care provider. Use wrap on knee. Ice 3 times a day for 20 minutes at a time. Clinical Impressions Clinical Impression: Acute pain of left knee Instructions Patient Instructions: DI for Chronic Pain -- Adult, DI for Knee Pain, How To Perform RICE (Rest, Ice, Compress, Elevate) Discharge ED Provider: Charline Dalal [facility] General Stated complaint: LT knee pain Mode of Arrival: Ambulatory Source of Information: Patient Limitations: No Limitations Time Seen by Provider: 07/01/23 17:30 Description of Symptoms (Recalled from Triage Doc. by RN): left knee pain with no accident for the last 2 months HEENT Symptoms (Recalled from RN notes): No Resp Symptoms (Recalled from RN notes): No Skin Symptoms (Recalled from RN notes): No MS Symptoms (Recalled from RN notes): Yes Functional Status (Recalled from RN notes): n/a Related Data Home Medications Medication Instructions Recorded Confirmed metoprolol succinate 25 mg 25 mg PO DAILY High blood pressure 12/11/22 07/01/23 tablet,extended release 24 hr azelastine 205.5 mcg (0.15 %) 2 spray intranasal HS Breathing 01/31/23 07/01/23 nasal spray problems fluticasone furoate 200 1 inh inhalation DAILY breathing 01/31/23 07/01/23 mcg-vilanterol 25 mcg/dose inhalation powder (Breo Ellipta) montelukast 10 mg tablet 10 mg PO DAILY allergies 01/31/23 07/01/23 gabapentin 400 mg capsule 400 mg PO BID neuropathy 06/25/23 07/01/23 clopidogrel 75 mg tablet (Plavix) 75 mg PO DAILY blood thinner 07/01/23 07/01/23 isosorbide mononitrate 60 mg 60 mg PO DAILY . 07/01/23 07/01/23 tablet,extended release 24 hr nitroglycerin 0.4
[2023-07-01 18:45] VITALS: BP 137/73; PULSE 78; RESP 18; TEMP 36.8; O2SAT 96
== END 2023-07-01 18:45 | disposition home or self-care (01) ==
PROVIDERS: Emergency Provider Nurse Practitioner Family; PCP Nurse Practitioner Family
DX: M25.562 Pain in left knee (principal); F17.210 Nicotine dependence, cigarettes, uncomplicated; I25.10 Atherosclerotic heart disease of native coronary artery without angina pectoris; K21.9 Gastro-esophageal reflux disease without esophagitis; J45.909 Unspecified asthma, uncomplicated; E66.01 Morbid (severe) obesity due to excess calories; G47.33 Obstructive sleep apnea (adult) (pediatric); F41.9 Anxiety disorder, unspecified; F33.9 Major depressive disorder, recurrent, unspecified; I10 Essential (primary) hypertension
CPT/HCPCS: 73562; 99212; 99213; G0463

== ENCOUNTER → 2023-07-02 07:56 | Outpatient (CLI) | payer MEDICARE, OTHER, SELFPAY ==
--- NOTE | 2023-07-02 07:57 | MR_ITS ---
FINAL REPORT TECHNIQUE: Multiplanar and multisequence imaging of the brain was obtained before and after contrast administration. CLINICAL HISTORY: Recurrent TIA like symptoms. R/O STROKE. HEADACHE. FINDINGS: The gyri and sulci are within normal limits for age. There is no mass effect or midline shift. Signal intensity is normal. No hydrocephalus. The cerebellum and brainstem have an unremarkable appearance. There are no areas of restricted diffusion on diffusion weighted images to suggest acute infarct. Soft tissues are without acute abnormality. No pathologic contrast enhancement is identified. IMPRESSION: No acute intracranial abnormality and no pathologic contrast enhancement. Reviewed, Interpreted and Dictated by Anastasia Nava MD Transcribed by Martha Juarez Authenticated and [facility]
== END ==
PROVIDERS: PCP Nurse Practitioner Family; Visit Provider Specialist
DX: G45.8 Other transient cerebral ischemic attacks and related syndromes (principal)
CPT/HCPCS: 70553; A9576

== ENCOUNTER 2023-09-09 10:42 | Emergency (ER) | payer MEDICARE, OTHER, SELFPAY ==
[2023-09-09] VITALS (8 sets, daily range): BP systolic 98–123; BP diastolic 48–80; PULSE 67–98; RESP 12–23; TEMP 36.4–36.7; O2SAT 90–98; BMI 45.5
--- NOTE | 2023-09-09 10:43 | ECG_ITS ---
APPROVED REPORT Exam: Resting ECG HR:114 bpm ECG Measurements Heart Rate 114 AXES KS 176 P 62 QRSd 91 QRS 49 QT 346 T 60 QTc 413 Conclusion SINUS TACHYCARDIA LOW QRS VOLTAGE IN PRECORDIAL LEADS [QRS DEFLECTION < 1.0 mV IN CHEST LEADS] POSSIBLE LATERAL MYOCARDIAL INFARCTION , OF INDETERMINATE AGE [30 ms Q WAVE IN I/aVL/V5/V6] PROBABLE INFERIOR MYOCARDIAL INFARCTION , PROBABLY OLD [35 ms Q WAVE IN II/aVF] ABNORMAL ECG UNCONFIRMED REPORT Electronically signed by : Carlos Noland MD 09/10/2023 17:39:21
--- NOTE | 2023-09-09 10:45 | XR_ITS ---
PROCEDURE INFORMATION: Exam: XR Chest Exam date and time: 09/09/2023 10:46 AM Age: 48 years old Clinical indication: Cough and shortness of breath and other: Chest pain; Smoker's cough; Additional info: Cp/cough TECHNIQUE: Imaging protocol: Radiologic exam of the chest. Views: 2 views. COMPARISON: CR XR CHEST PORTABLE 06/19/2023 3:19 PM FINDINGS: Lungs: Mild regions of peribronchial thickening left lung base. Findings suggesting changes of bronchitis. Pleural spaces: Unremarkable. No pleural effusion. No pneumothorax. Heart/Mediastinum: Unremarkable. No cardiomegaly. Bones/joints: Unremarkable. IMPRESSION: Mild regions of peribronchial thickening left lung base. Findings suggesting changes of bronchitis.
--- NOTE | 2023-09-09 10:47 | HMH.EDCP ---
Discharge Plan Disposition Patient Disposition: Home, Self-Care Chief Complaint: Chest Pain Prescriptions Prescriptions: New azithromycin 250 mg tablet 250 mg PO DAILY 4 Days Qty: 4 0RF Rx Instructions: start on day 2 of therapy prednisone 50 mg tablet 50 mg PO DAILY 4 Days Qty: 4 0RF No Action aspirin 81 mg tablet,chewable 81 mg PO DAILY Qty: 90 2RF fluticasone propionate 50 mcg/actuation spray,suspension 2 spray INTRANASAL DAILY Qty: 9.9 2RF gabapentin 400 mg capsule 400 mg PO BID Qty: 60 2RF cyclobenzaprine 10 mg tablet 10 mg PO TID PRN (Reason: muscle spasm) Qty: 60 0RF fluoxetine 40 mg capsule 40 mg PO DAILY Qty: 30 2RF risperidone 1 mg tablet 1 mg PO BID Qty: 60 1RF trazodone 100 mg tablet 100 mg PO QHS PRN (Reason: insomnia) Qty: 30 1RF Ingrezza 40 mg capsule 40 mg PO DAILY Qty: 30 2RF omeprazole 40 mg capsule,delayed release(DR/EC) 40 mg PO DAILY Qty: 90 2RF atorvastatin 40 mg tablet See Rx Instructions .ROUTE .COMPLEX Qty: 90 3RF Rx Instructions: TAKE 1 TABLET BY MOUTH ONCE DAILY AT BEDTIME FOR CHOLESTEROL isosorbide mononitrate 60 mg tablet extended release 24 hr See Rx Instructions .ROUTE .COMPLEX Qty: 90 3RF Dose Instruction: Take 1 tablet by mouth once daily Rx Instructions: Take 1 tablet by mouth once daily albuterol sulfate 90 mcg/actuation HFA aerosol inhaler See Rx Instructions .ROUTE .COMPLEX Qty: 9 0RF Dose Instruction: INHALE 2 PUFFS BY MOUTH EVERY 6 HOURS NEEDED FOR SHORTNESS OF BREATH AND FOR WHEEZING Rx Instructions: INHALE 2 PUFFS BY MOUTH EVERY 6 HOURS NEEDED FOR SHORTNESS OF BREATH AND FOR WHEEZING furosemide 40 mg tablet See Rx Instructions .ROUTE .COMPLEX Qty: 180 4RF Dose Instruction: TAKE 1 & 1/2 (ONE & ONE-HALF) TABLETS BY MOUTH ONCE DAILY FOR CARDIAC Rx Instructions: TAKE 1 & 1/2 (ONE & ONE-HALF) TABLETS BY MOUTH ONCE DAILY FOR CARDIAC montelukast 10 mg tablet 10 mg PO DAILY azelastine 205.5 mcg (0.15 %) spray,non-aerosol 2 spray intranasal HS Rx Instructions: administer into each nostril fluticasone furoate-vilanterol [Breo Ellipta] 200-25 mcg/dose blister with device 1 inh inhalation DAILY spironolactone 100 mg tablet See Rx Instructions .ROUTE .COMPLEX Rx Instructions: TAKE 1 TABLET BY MOUTH ONCE DAILY FOR FLUID clopidogrel [Plavix] 75 mg tablet 75 mg PO DAILY nitroglycerin 0.4 mg tablet, sublingual See Rx Instructions .ROUTE .COMPLEX Rx Instructions: DISSOLVE ONE TABLET UNDER THE TONGUE EVERY 5 MINUTES NEEDED FOR CHEST PAIN. DO NOT EXCEED A TOTAL OF 3 DOSES IN 15 MINUTES metoprolol succinate 25 mg tablet extended release 24 hr 25 mg PO DAILY Rx Instructions: TAKE 1 TABLET BY MOUTH ONCE DAILY FOR HIGH BLOOD PRESSURE Referrals Follow up/Referrals: Dio Albarado APRN [Primary Care Provider] - See instructions Win Linares MD [Staff Physician] - See instructions Activity Restrictions/Add. Instructions Additional Instructions/Restrictions: At this time it was felt you are safe to be discharged home. If new or worsening symptoms please do not hesitate to return the emergency department. Please follow-up with your family doctor within 5 days for continued evaluation and schedule an appointment with Dr. Linares as soon as you are able. Please take your medications as prescribed. Clinical Impressions Clinical Impression: Chest pain, pleuritic, COPD exacerbation Discharge ED Provider: Michael Vasquez HPI General Chief Complaint: Chest Pain Stated Complaint: chest pain Time Seen by Provider: 09/09/23 10:45 History of Present Illness HPI narrative: Patient is a 48-year-old male with past medical history of recurrent chest pain, obesity, chronic smoker, hypertension, hyperlipidemia, COPD who presents emergency department for evaluation of chest pain.
--- NOTE | 2023-09-09 10:50 | PC.NURSE ---
pt to xray
--- NOTE | 2023-09-09 10:53 | PC.NURSE ---
PT TO XR
[2023-09-09 10:57] LABS: Basophils # 0.1 K/mm3 (0-0.2); Basophils % 0.5 % (0.1-2.0); Eosinophils # 0.3 K/mm3 (0.0-0.4); Eosinophils % 3.3 % (0.1-12.0); Hematocrit 41.3 % (42.0-52.0); Hemoglobin 14.2 g/dL (14.1-18.0); Lymphocytes # 2.2 K/mm3 (0.7-4.5); Lymphocytes % 21.1 % (10-50); Mean Corpuscular HGB Conc 34.3 g/dL (31.8-35.4); Mean Corpuscular Hemoglobin 29.8 pg (27.0-31.2); Mean Corpuscular Volume 86.9 fl (80-94); Mean Platelet Volume 8.1 fl (7.4-10.4); Monocytes # 0.4 K/mm3 (0.1-1.0); Neutrophils # 7.3 K/mm3 (1.8-7.8); Neutrophils % 71.1 % (37.0-80.0); Platelet Count 293 K/mm3 (142-424); Red Blood Count 4.75 M/mm3 (4.60-6.20); Red Cell Distribution Width 13.7 % (11.5-17.5); White Blood Count 10.2 K/mm3 (4.8-10.8)
--- NOTE | 2023-09-09 10:59 | PC.NURSE ---
pt arrived back to room
[2023-09-09 11:03] LABS: Chloride 106 mmol/L (98-107); Sodium 139 mmol/L (136-145)
[2023-09-09 11:04] LABS: Potassium 3.6 mmoL/L (3.5-5.1)
--- NOTE | 2023-09-09 11:04 | PC.NURSE ---
SPOKE WITH DR CLARK, DECLINES BLOOD CULTURES FOR PT
[2023-09-09 11:06] LABS: Alanine Aminotransferase 37 U/L (12-78); Albumin Level 4.4 g/dl (3.5-5.0); Albumin/Globulin Ratio 1.4 (1.1-1.8); Alkaline Phosphatase 99 U/L (38-126); Anion Gap 12.6 mEq/L (5-15); Aspartate Amino Transferase 34 U/L (17-59); Bilirubin,Total 0.4 mg/dl (0.2-1.3); Blood Urea Nitrogen 11 mg/dl (9-20); Carbon Dioxide 24 mmol/L (22.0-30.0); Creatinine Clearance Estimated 80 mL/min (50-200); Estimated Glomerular Filt Rate 65 ml/min (>60); GFR (African American) 78 ML/MIN (>60); Globulin 3.2 g/dL (1.3-3.2); Total Protein,Serum 7.6 g/dl (6.3-8.2)
[2023-09-09 11:07] LABS: Calcium 9.1 mg/dl (8.4-10.2); Glucose 135 mg/dl (74-100)
[2023-09-09 11:12] LABS: D-Dimer 1.26 ug/mL (0.0-0.5)
--- NOTE | 2023-09-09 11:13 | CT_ITS ---
PROCEDURE INFORMATION: Exam: CTA Chest With Contrast Exam date and time: 09/09/2023 11:28 AM Age: 48 years old Clinical indication: Other: Cp; Additional info: Elevated dimer, R chest pain TECHNIQUE: Imaging protocol: Computed tomographic angiography of the chest with contrast. Exam focused on the arteries. 3D rendering (Not supervised by radiologist): MIP and/or 3D reconstructed images were created by the technologist. Radiation optimization: All CT scans at this facility use at least one of these dose optimization techniques: automated exposure control; mA and/or kV adjustment per patient size (includes targeted exams where dose is matched to clinical indication); or iterative reconstruction. Contrast material: ISOVUE 370; Contrast volume: 70 ml; Contrast route: INTRAVENOUS (IV); REPORTING DATA: Count of CT and Cardiac NM exams in prior 12 months: This patient has received 11 known CTs and 0 known cardiac nuclear medicine studies in the 12 months prior to the current study. COMPARISON: CT ANGIO CHEST 05/30/2023 3:53 PM FINDINGS: Pulmonary arteries: There is suboptimal opacification of pulmonary arteries due to contrast bolus timing. Aorta: Unremarkable. No aortic aneurysm. No aortic dissection. Lungs: Calcified granuloma left lung base. Bilateral ground-glass regions of opacification. Findings nonspecific and may reflect interstitial lung disease. An acute inflammatory process could not be entirely excluded. Bibasilar atelectasis versus parenchymal scarring. Findings most pronounced at the left lung base Pleural spaces: Unremarkable. No pneumothorax. No pleural effusion. Heart: Unremarkable. No cardiomegaly. No pericardial effusion. Coronary arteries: no evidence of coronary artery calcification Lymph nodes: Nonspecific mediastinal lymph nodes stable. Calcified left hilar lymph nodes. Bones/joints: Unremarkable. No acute fracture. Soft tissues: Unremarkable. IMPRESSION: 1. No large or central pulmonary embolus. Evaluation of the peripheral pulmonary arteries is limited.. 2. Bilateral ground-glass regions of opacification. Findings nonspecific and may reflect interstitial lung disease. An acute inflammatory process could not be entirely excluded. 3. Bibasilar atelectasis versus parenchymal scarring. 4. Evidence of prior granulomatous disease.
[2023-09-09 11:17] LABS: Coronavirus 19, PCR Not Detected (NotDetected); Influenza A, PCR Not Detected (NotDetected); Influenza B, PCR Not Detected (NotDetected)
[2023-09-09 11:19] LABS: Troponin I < 0.01 ng/ml (0.00-0.034)
--- NOTE | 2023-09-09 11:52 | PC.NURSE ---
FAMILY UPDATED AT THIS TIME
--- NOTE | 2023-09-09 12:42 | PC.NURSE ---
Dr. Vasquez at BS to update pt on results and POC
--- NOTE | 2023-09-09 12:45 | PC.NURSE ---
called dietary for a tray for pt
--- NOTE | 2023-09-09 12:53 | PC.NURSE ---
emptied 800 out of pt urinal
[2023-09-09 13:26] LABS: Troponin I < 0.01 ng/ml (0.00-0.034)
== END 2023-09-09 13:41 | disposition home or self-care (01) ==
PROVIDERS: Emergency Provider Emergency Medicine; PCP Nurse Practitioner Family
DX: J44.1 Chronic obstructive pulmonary disease with (acute) exacerbation (principal); R07.81 Pleurodynia; I10 Essential (primary) hypertension; E78.5 Hyperlipidemia, unspecified; I25.10 Atherosclerotic heart disease of native coronary artery without angina pectoris; G47.33 Obstructive sleep apnea (adult) (pediatric); K21.9 Gastro-esophageal reflux disease without esophagitis; R00.0 Tachycardia, unspecified; F32.9 Major depressive disorder, single episode, unspecified; F41.9 Anxiety disorder, unspecified; F17.210 Nicotine dependence, cigarettes, uncomplicated
CPT/HCPCS: 71046; 71275; 80053; 84484; 85025; 85378; 87636; 93005; 96374; 96375; 99285; J0456; Q9967

== ENCOUNTER 2023-11-05 23:07 | Emergency (ER) | payer MEDICARE, OTHER, SELFPAY ==
[2023-11-05 23:09] VITALS: BP 127/57; PULSE 59; RESP 18; TEMP 36.6; O2SAT 96; BMI 45.3
--- NOTE | 2023-11-05 23:44 | CT_ITS ---
PROCEDURE INFORMATION: Exam: CT Abdomen And Pelvis With Contrast Exam date and time: 11/06/2023 12:16 AM Age: 48 years old Clinical indication: Abdominal pain; Additional info: Perineal abscess, testicular pain TECHNIQUE: Imaging protocol: Computed tomography of the abdomen and pelvis with contrast. Total images: 380 Radiation optimization: All CT scans at this facility use at least one of these dose optimization techniques: automated exposure control; mA and/or kV adjustment per patient size (includes targeted exams where dose is matched to clinical indication); or iterative reconstruction. Contrast material: ISOVUE; Contrast volume: 75 ml; Contrast route: IV; COMPARISON: CT ABDOMEN PELVIS W CON 12/10/2022 11:51 PM FINDINGS: Lungs: Chronic left lower lobe atelectasis/scarring. Right lung base is clear. Heart: Normal heart size. Liver: Normal. No mass. Gallbladder and bile ducts: Contracted gallbladder. No calcified gallstones or secondary signs of acute cholecystitis. No bile duct dilatation. Pancreas: Normal. No ductal dilation. Spleen: Nonenlarged spleen with scattered calcified granuloma. Adrenal glands: Normal. No mass. Kidneys and ureters: No hydronephrosis, nephrolithiasis, or perinephric fluid. Tiny bilateral renal cortical hypodensities are far too small to characterize but statistically cysts requiring no strict follow-up. Stomach and bowel: Unremarkable stomach and duodenum. No ileus or bowel obstruction. Small bowel is within normal limits. Unremarkable terminal ileum. Unremarkable colon and rectum. Appendix: No evidence for appendicitis. Intraperitoneal space: Unremarkable. No free air. No significant fluid collection. Vasculature: Nonaneurysmal abdominal aorta. Major abdominal vessels enhance appropriately. Multiple pelvic phleboliths. Lymph nodes: Benign-appearing bilateral inguinal and femoral lymph nodes. Urinary bladder: Collapsed bladder. Reproductive: Nonenlarged prostate. Bones/joints: Moderate degenerative changes thoracolumbar spine. Remote mild anterior wedging L2 vertebral body. Mild degenerative changes bilateral hips and SI joints. Soft tissues: Small fat containing umbilical hernia. IMPRESSION: 1. No acute intra-abdominal or pelvic process. 2. Additional stable chronic and incidental findings. 3. No significant change from December 10, 2022. COMMENTS: Consistent with the [employer]'s Incidental Findings Committee white paper (J Am Zelalem Radiol 2018): Any incidental renal lesion less than 1 cm or classified as too small to characterize, or any incidental cystic renal lesion characterized as simple-appearing, is likely benign. No follow-up imaging is recommended for these lesions per consensus recommendations based on imaging criteria.
--- NOTE | 2023-11-05 23:47 | ED_ITS ---
Discharge Plan Disposition Patient Disposition: Home, Self-Care Condition: Good Prescriptions Prescriptions: New amoxicillin-pot clavulanate 875-125 mg tablet 1 tab PO BID 10 Days Qty: 20 0RF No Action aspirin 81 mg tablet,chewable 81 mg PO DAILY Qty: 90 2RF fluticasone propionate 50 mcg/actuation spray,suspension 2 spray INTRANASAL DAILY Qty: 9.9 2RF Ingrezza 40 mg capsule 40 mg PO DAILY Qty: 30 2RF gabapentin 400 mg capsule 400 mg PO DAILY metoprolol succinate 25 mg tablet extended release 24 hr 25 mg PO BID Qty: 60 5RF Rx Instructions: Take one tablet twice a day fluoxetine 40 mg capsule 40 mg PO DAILY Qty: 30 2RF risperidone 1 mg tablet 1 mg PO BID Qty: 60 1RF omeprazole 40 mg capsule,delayed release(DR/EC) 40 mg PO DAILY Qty: 90 2RF atorvastatin 40 mg tablet See Rx Instructions .ROUTE .COMPLEX Qty: 90 3RF Rx Instructions: TAKE 1 TABLET BY MOUTH ONCE DAILY AT BEDTIME FOR CHOLESTEROL isosorbide mononitrate 60 mg tablet extended release 24 hr See Rx Instructions .ROUTE .COMPLEX Qty: 90 3RF Dose Instruction: Take 1 tablet by mouth once daily Rx Instructions: Take 1 tablet by mouth once daily furosemide 40 mg tablet See Rx Instructions .ROUTE .COMPLEX Qty: 180 4RF Dose Instruction: TAKE 1 & 1/2 (ONE & ONE-HALF) TABLETS BY MOUTH ONCE DAILY FOR CARDIAC Rx Instructions: TAKE 1 & 1/2 (ONE & ONE-HALF) TABLETS BY MOUTH ONCE DAILY FOR CARDIAC albuterol sulfate 90 mcg/actuation HFA aerosol inhaler See Rx Instructions .ROUTE .COMPLEX Qty: 9 0RF Dose Instruction: INHALE 2 PUFFS BY MOUTH EVERY 6 HOURS NEEDED FOR SHORTNESS OF BREATH AND FOR WHEEZING Rx Instructions: INHALE 2 PUFFS BY MOUTH EVERY 6 HOURS NEEDED FOR SHORTNESS OF BREATH AND FOR WHEEZING trazodone 100 mg tablet 100 mg PO QHS PRN (Reason: insomnia) Qty: 30 1RF spironolactone 100 mg tablet See Rx Instructions .ROUTE .COMPLEX Qty: 90 3RF Dose Instruction: TAKE 1 TABLET BY MOUTH ONCE DAILY FOR FLUID Rx Instructions: TAKE 1 TABLET BY MOUTH ONCE DAILY FOR FLUID montelukast 10 mg tablet 10 mg PO DAILY azelastine 205.5 mcg (0.15 %) spray,non-aerosol 2 spray intranasal HS Rx Instructions: administer into each nostril fluticasone furoate-vilanterol [Breo Ellipta] 200-25 mcg/dose blister with device 1 inh inhalation DAILY nitroglycerin 0.4 mg tablet, sublingual See Rx Instructions .ROUTE .COMPLEX Rx Instructions: DISSOLVE ONE TABLET UNDER THE TONGUE EVERY 5 MINUTES NEEDED FOR CHEST PAIN. DO NOT EXCEED A TOTAL OF 3 DOSES IN 15 MINUTES Referrals Follow up/Referrals: Dio Albarado APRN [Primary Care Provider] - See instructions Nazario Espinoza MD [Staff Physician] - See instructions (Testicular tenderness for more than 1 year. Reassuring ER evaluation) Activity Restrictions/Add. Instructions Additional Instructions/Restrictions: You were evaluated in the ER today. You do have findings of superficial skin infection. Take the prescribed antibiotics as directed. Do not skip doses, do not stop taking them early. I also recommend a sitz bath. You can picker / packer these kits [id number]. You should at least be sitting in a warm tub of water a few times a day to help clean the skin. Keep the wound clean and dry. You have been referred to urology for follow-up of your testicular pain. Make an appointment with your primary care physician for reevaluation in 2 to 3 days. Return to the ER with any new, worsening, or otherwise concerning symptoms. Clinical Impressions Clinical Impression: Cellulitis of perineum, Pain in both testicles Instructions Patient Instructions: DI for Skin Abscess Discharge ED Provider: Hallie Dhaliwal General Adult HPI General Chief complaint: Skin/Abscess/Foreign Body Stated complaint: poss hernia/groin Time Seen by Provider: 11/05/23 23:36 Mode of Arrival: Ambulatory Source of Information: Patient Limitations: No Limitations Description of Symptoms (Recalled from ER Triage Doc. by RN): Pt presents with right sided groin cyst that has been there for approx 1 month. Pt states it has drained and has a foul odor. History of Present Illness HPI narrative: This 48-year-old male with a history of hypertension, CHF, chronic bronchitis, COPD, obesity, CAD presents to the ER with concerns of perennial pain, pus drainage, and foul odor. Patient states he has always had acne on his inner thighs but has had an area behind his testes but anterior to the anus that is painful, leaking pus. He states this has been ongoing for about the last month and he has been having testicle pain in both testicles but worse on the right for the last year or more. He denies dysuria or hematuria. Patient denies fever. He states he has never been on antibiotics for the acne on his inner thighs or for other abscesses. Related Data Home Medications Medication Instructions Recorded Confirmed azelastine 205.5 mcg (0.15 %) 2 spray intranasal HS Breathing 01/31/23 11/06/23 nasal spray problems fluticasone furoate 200 1 inh inhalation DAILY breathing 01/31/23 11/06/23 mcg-vilanterol 25 mcg/dose inhalation powder (Breo Ellipta) montelukast 10 mg tablet 10 mg PO DAILY allergies 01/31/23 11/06/23 nitroglycerin 0.4 mg sublingual See Rx Instructions .Route 07/01/23 11/06/23 tablet .COMPLEX . gabapentin 400 mg capsule 400 mg PO DAILY neuropathy 10/17/23 11/06/23 Previous Rx's Medication Instructions Recorded aspirin 81 mg chewable tablet 81 mg PO DAILY Heart disease #90 04/25/22 tabs omeprazole 40 mg capsule,delayed 40 mg PO DAILY GERD #90 caps 03/20/23 release atorvastatin 40 mg tablet See Rx Instructions .Route 03/28/23 .COMPLEX High cholesterol #90 tabs fluticasone propionate 50 2 spray intranasal DAILY allergies 04/27/23 mcg/actuation nasal #9.9 mL spray,suspension fluoxetine 40 mg capsule 40 mg PO DAILY anxiety #30 caps 08/15/23 risperidone 1 mg tablet 1 mg PO BID anxiety #60 tabs 08/15/23 isosorbide mononitrate 60 mg See Rx Instructions .Route 08/16/23 tablet,extended release 24 hr .COMPLEX #90 tabs furosemide 40 mg tablet See Rx Instructions .Route 09/04/23 .COMPLEX #180 tabs valbenazine 40 mg capsule 40 mg PO DAILY #30 caps 10/05/23 (Ingrezza) albuterol sulfate 90 mcg/actuation See Rx Instructions .Route 10/15/23 aerosol inhaler .COMPLEX #9 grams metoprolol succinate 25 mg 25 mg PO BID High blood pressure 10/17/23 tablet,extended release 24 hr #60 tabs trazodone 100 mg tablet 100 mg PO QHS PRN insomnia #30 tabs 10/18/23 spironolactone 100 mg tablet See Rx Instructions .Route 10/24/23 .COMPLEX #90 tabs amoxicillin 875 mg-potassium 1 tab PO BID 10 days #20 tabs 11/06/23 clavulanate 125 mg tablet Allergies Allergy/AdvReac Type Severity Reaction Status Date / Time No Known Allergies Allergy Verified 10/19/23 11:38 [facility] Disclaimer: The information contained in this section may have been updated after the patient was seen, as this information can be updated by other users. Medical History Allergic rhinitis Allergic rhinitis, unspecified Anxiety Back pain CAD (coronary artery disease), [place] coronary artery Chest pain COVID-19 COVID-19 virus infection Dyspnea Dyspnea on exertion Dyspnea on exertion Edema Encounter for pre-operative cardiovascular clearance Ex-smoker GERD (gastroesophageal reflux disease) History of hyperlipidemia Hypokalemia Major depressive disorder Moderate persistent asthma Morbid obesity due to excess calories Obesity (BMI 30-39.9) HARSH (obstructive sleep apnea) Renal insufficiency Stopped smoking with greater than 15 pack year history Stopped smoking with greater than 20 pack year history Tardive dyskinesia Tobacco abuse disorder Surgical History History of appendectomy History of cardiac cath History of colonoscopy Family History Other Coronary artery disease Diabetes Hyperlipidemia Hypertension Social History Smoking Status: Current every day smoker tobacco type: cigarettes packs per day: 1 second hand exposure: No alcohol intake: never substance use type: denies use current occupational status: disabled Travel in the last 8 weeks: [employer] States household members: spouse housing: house lives independently: No marital status: number of children: 0 current occupational exposures/hazards: No caffeine: Yes do you feel safe at home: Yes victim of physical abuse: No victim of emotional abuse: No victim of sexual abuse: No would you like helpful sources: No ROS Obtained: Yes All systems reviewed & no additional complaints except as documented Constitutional Constitutional: Denies chills, Denies fever(s), Denies headache(s) and Denies weakness Eyes Eyes: Denies change in vision ENT Ears, Nose, Mouth, and Throat: Denies dizziness, Denies headache(s), Denies na suzie congestion and Denies sore throat Cardiovascular Cardiovascular: Denies chest pain, Denies dyspnea and Denies leg edema Respiratory Respiratory: Denies cough and Denies dyspnea Gastrointestinal Gastrointestingal: Denies abdominal pain, constipation, diarrhea, nausea or vomiting Genitourinary Male Genitourinary: Denies difficulty urinating, Denies flank pain, Denies genital lesions, Reports genital pain, Denies hematuria, Denies penile discharge, Denies scrotal swelling (Positive for scrotal tenderness), Reports testicular pain and Reports other (Painful lesion with purulent discharge posterior to testes) Musculoskeletal Musculoskeletal: Denies arthralgias, Denies myalgias, Denies numbness and Denies tingling Integumentary/Breasts Skin/Breast: Reports acne (inner thighs), Denies change in pigmentation, Reports redness, Reports lesions and Reports wounds Neurologic Neurologic: Denies dizziness, Denies headache(s), Denies numbness, Denies tin gling and Denies weakness Physical Exam General General appearance: alert and in no apparent distress Head Head exam: atraumatic and normocephalic Eye Eye exam: Present PERRL and EOMI ENT ENT exam: Present mucous membranes moist Neck Neck exam: Present normal inspection and full ROM Chest Chest inspection: Present symmetric chest wall rise Respiratory Respiratory exam: Absent respiratory distress or stridor Cardiovascular Cardiovascular exam: Present regular rate and normal rhythm Abdominal Exam Abdominal exam: Present soft; Absent distention or tenderness exam: Present testicular tenderness (Right testicular tenderness without mass, epididymal tenderness present, mild left-sided tenderness), circumcised (Normal penile appearance, no lesions on the penis or testicles) and other; Absent scrotal swelling Expanded Exam Scrotal exam: right: epididymal tenderness and bilateral: testicular tenderness Comment: Painful erythematous lesion approximately 2 cm in diameter posterior to the testes but anterior to the anus with surrounding induration, no discharge at this time Extremities Exam Extremities exam: Present full ROM Neurological Exam Neurological exam: Present alert and oriented X3; Absent motor sensory deficit Psychiatric Psychiatric exam: Present normal affect and normal mood Skin Skin exam: Present warm, dry and other (See exam, patient has lesions on asiya ateral inner thighs that have an erythematous base, up to 1 cm in diameter with purulent heads, but no purulent discharge, multiple blackheads present, findings similar to hidradenitis suppurativa) Medical Decision Making Jonathan Inquiry Pt receiving controlled substance: No Vital Signs: 11/05/23 23:09 11/05/23 23:59 11/06/23 00:31 Temperature 97.8 F Temperature Source Oral Pulse Rate 59 L 62 Pulse Rate [Left] 59 L Respiratory Rate 18 Blood Pressure 122/65 97/62 L Blood Pressure [Right Arm] 127/57 L Blood Pressure Mean [Right Arm] 80 Blood Pressure Source [Right Arm] Automatic Cuff Blood Pressure Position [Right Arm] Sitting 02 Sat by Pulse Oximetry 96 94 L 94 L Oxygen Delivery Method Room Air 11/06/23 00:33 Temperature Temperature Source Pulse Rate 61 Pulse Rate [Left] Respiratory Rate Blood Pressure 115/67 Blood Pressure [Right Arm] Blood Pressure Mean [Right Arm] Blood Pressure Source [Right Arm] Blood Pressure Position [Right Arm] 02 Sat by Pulse Oximetry 94 L Oxygen Delivery Method Lab Data Lab Results 11/05/23 00:28: Urine Color Yellow, Urine Appearance Clear, Urine pH 6.0, Ur Specific [place] 1.015, Urine Protein Negative, Urine Glucose (UA) Negative, Urine Ketones Negative, Urine Blood Negative, Urine Nitrate Negative, Urine Bilirubin Negative, Urine Urobilinogen 0.2, Ur Leukocyte Esterase Negative, Urine WBC Occasional, Ur Squamous Epith Cells 5-10, Urine Bacteria Trace 11/05/23 23:50: WBC 12.1 H, RBC 4.44 L, Hgb 13.2 L, Hct 37.3 L, MCV 83.9, MCH 2 9.7, MCHC 35.4, RDW 14.1, Plt Count 231, MPV 8.1, Neut % (Auto) 60.5, Lymph % (Auto) 28.1, Mcminn % (Auto) 5.6, Eos % (Auto) 5.0, Baso % (Auto) 0.9, Neut # (Auto) 7.3, Lymph # (Auto) 3.4, [place] # (Auto) 0.7, Eos # (Auto) 0.6 H, Baso # (Auto) 0.1, PT 10.3, INR 0.95, Sodium 135 L, Potassium 3.7, Chloride 104, Carbon Dioxide 25, Anion Gap 9.7, BUN 11, Creatinine 1.40 H, Estimated Creat Clear 69, Estimated GFR 54 L, Est GFR ( Amer) 65, Glucose 101 H, Hemoglobin A1c 5.2, Calcium 8.8, Total Bilirubin 0.3, AST 27, ALT 24, Alkaline Phosphatase 71, Total Protein 6.6, Albumin 3.7, Globulin 2.9, Albumin/Globulin Ratio 1.3 11/05/23 23:50 11/05/23 23:50 Orders (Tests/Meds): ED MEDICATIONS Generic Name Dose Route Start Last Admin Trade Name Freq PRN Reason Stop Dose Admin Sodium Chloride 10 ml 11/06/23 00:23 11/06/23 00:23 Sodium Chloride 0.9% 10ml Syr (Rad Only) IV 12/06/23 00:22 10 ml NEEDED PRN Administration Maintain IV Site Discontinued Medications Generic Name Dose Route Start Last Admin Trade Name Freq PRN Reason Stop Dose Admin Amoxicillin/Clavulanate Potassium 1 each 11/06/23 01:05 11/06/23 01:09 Amoxicillin/Clavulanate Potassium 875/125mg Tablet PO 11/06/23 01:06 1 each ONCE ONE Administration Iopamidol 75 ml 11/06/23 00:23 11/06/23 00:23 Iopamidol-370 (76%);100ml Bottle IV 11/06/23 00:24 75 ml ONCE ONE Administration Ketorolac Tromethamine 15 mg 11/05/23 23:47 11/05/23 23:54 Ketorolac 30mg/Ml Vial IV 11/05/23 23:48 15 mg ONCE ONE Administration ORDERS Category Date Time Status CT abdomen pelvis w con Stat Cat Scan 11/05/23 23:44 Completed CBC w/Auto Diff [Complete Blood Count Auto Diff] Stat Lab 11/05/23 23:50 Completed CMP [Comprehensive Metabolic Panel] Stat Lab 11/05/23 23:50 Completed Hemoglobin A1C Stat Lab 11/05/23 23:50 Completed PT INR [Prothrombin Time INR] Stat Lab 11/05/23 23:50 Completed Urinalysis and Microscopic Stat Lab 11/05/23 00:28 Completed Medical Decision Narrative: In summary, this 48year old male presents to the emergency department today with perineal lesion and testicular pain. On initial evaluation patient is hemodynamically stable, afebrile, skin exam notable for lesion on the perineum as well as lesions on the inner thighs and pain on testicular exam. Differential diagnosis includes but is not limited to hidradenitis suppurativa, abscess, Bhupinder's gangrene, cellulitis, perianal/perirectal abscess, epididymitis, urinary tract infection. I also considered testicular torsion however patient states he has had testicular pain for years and he is not having new acute pain of the testes. He also has normal cremasteric reflex. Based on these concerns, I ordered basic labs including coags and A1c given patient's body habitus and other comorbidities concerning for possible underlying diabetes which would also increase patient's risk of Bhupinder's gangrene. I also ordered CT imaging of the abdomen and pelvis to further evaluate the skin lesions and urinalysis. Labs personally reviewed demonstrate mild leukocytosis with WBC 12.1, trace anemia with hemoglobin 13.2, nonspecific, nonactionable at this time. PT/INR normal. Sodium 135, nonactionable, potassium and chloride normal, creatinine is mildly elevated at 1.40, previous baseline was 1.2, this does not meet criteria for SHANTELL. Patient was encouraged to drink plenty of fluids and increase his water intake. Hemoglobin A1c 5.2, no findings concerning for diabetes, liver function normal, UA negative for signs of infection, UA not consistent with epididymitis at this time. CT abdomen pelvis was personally interpreted and I do not appreciate any deep space infection, no findings of necrotizing fasciitis, no perineal abscess, no abnormalities of the testes. See radiology reads for full interpretation. On reassessment, patient is stable. He received 1 dose of Augmentin in the ER to begin his oral antibiotic therapy. At this time I believe he has simple cellulitis of the perineum and is appropriate for discharge since he is otherwise stable and well-appearing. Given he has no obvious abnormalities that would explain his mild testicular discomfort, I gave him follow-up with urology for further evaluation. Patient was prescribed Augmentin. He is appropriate for discharge at this time. I gave instructions on continued symptomatic management including medication administration, sitz bath's, follow-up instructions, and strict return precautions for the ER. Patient indicated understanding and was discharged in stable condition. Critical Care Critical Care Time Critical Care Time: No
[2023-11-05] MEDS: KETOROLAC 30MG/ML VIAL 15 MG IV (23:54)
[2023-11-05 23:59] VITALS: BP 122/65; PULSE 59; O2SAT 94
[2023-11-06 00:05] LABS: Chloride 104 mmol/L (98-107); Sodium 135 mmol/L (136-145)
[2023-11-06 00:06] LABS: Potassium 3.7 mmoL/L (3.5-5.1)
[2023-11-06 00:08] LABS: Alanine Aminotransferase 24 U/L (12-78); Albumin Level 3.7 g/dl (3.5-5.0); Albumin/Globulin Ratio 1.3 (1.1-1.8); Alkaline Phosphatase 71 U/L (38-126); Anion Gap 9.7 mEq/L (5-15); Aspartate Amino Transferase 27 U/L (17-59); Bilirubin,Total 0.3 mg/dl (0.2-1.3); Blood Urea Nitrogen 11 mg/dl (9-20); Carbon Dioxide 25 mmol/L (22.0-30.0); Creatinine Clearance Estimated 69 mL/min (50-200); Estimated Glomerular Filt Rate 54 ml/min (>60); GFR (African American) 65 ML/MIN (>60); Globulin 2.9 g/dL (1.3-3.2); Total Protein,Serum 6.6 g/dl (6.3-8.2)
--- NOTE | 2023-11-06 00:18 | PC.NURSE ---
Pt in CT
[2023-11-06] MEDS: IOPAMIDOL-370 (76%);100ML BOTTLE 75 ML IV (00:23)
[2023-11-06] MEDS: SODIUM CHLORIDE 0.9% 10ML SYR (RAD ONLY) 10 ML IV (00:23)
[2023-11-06 00:26] LABS: Hemoglobin A1C 5.2 % (4.0-6.0)
[2023-11-06 00:27] LABS: Calcium 8.8 mg/dl (8.4-10.2); Glucose 101 mg/dl (74-100)
[2023-11-06 00:31] VITALS: BP 97/62; PULSE 62; O2SAT 94
[2023-11-06 00:33] VITALS: BP 115/67; PULSE 61; O2SAT 94
[2023-11-06 00:34] LABS: Microscopic, Urine URINE MICROSCOPIC (MICROSCOPIC)
[2023-11-06 00:38] LABS: Appearance,Urine CLEAR (Clear); Bilirubin,Urine Negative (Negative); Blood, Urine Negative (Negative); Color,Urine YELLOW (Yellow); Glucose,Urine (UA) Negative (Negative); Ketones,Urine Negative (Negative); Leukocyte Esterase,Urine Negative (Negative); Nitrate,Urine Negative (Negative); Protein,Urine Negative (Negative); Specific Gravity, Urine 1.015 (1.005-1.030); Urobilinogen,Urine 0.2 EU/dl (0.2)
[2023-11-06 00:48] LABS: Basophils # 0.1 K/mm3 (0-0.2); Basophils % 0.9 % (0.1-2.0); Eosinophils # 0.6 K/mm3 (0.0-0.4); Hematocrit 37.3 % (42.0-52.0); Hemoglobin 13.2 g/dL (14.1-18.0); Lymphocytes # 3.4 K/mm3 (0.7-4.5); Lymphocytes % 28.1 % (10-50); Mean Corpuscular HGB Conc 35.4 g/dL (31.8-35.4); Mean Corpuscular Hemoglobin 29.7 pg (27.0-31.2); Mean Corpuscular Volume 83.9 fl (80-94); Mean Platelet Volume 8.1 fl (7.4-10.4); Monocytes # 0.7 K/mm3 (0.1-1.0); Monocytes % 5.6 % (1.7-9.3); Neutrophils # 7.3 K/mm3 (1.8-7.8); Neutrophils % 60.5 % (37.0-80.0); Platelet Count 231 K/mm3 (142-424); Red Blood Count 4.44 M/mm3 (4.60-6.20); Red Cell Distribution Width 14.1 % (11.5-17.5); White Blood Count 12.1 K/mm3 (4.8-10.8)
[2023-11-06 00:50] LABS: INR 0.95 (0.9-1.1); Prothrombin Time 10.3 seconds (10.1-12.5)
[2023-11-06 01:08] LABS: Bacteria,Urine Trace /lpf; WBC,Urine Occasional #/hpf (0-3)
[2023-11-06] MEDS: AMOXICILLIN/CLAVULANATE POTASSIUM 875/125MG TABLET 1 EACH PO (01:09)
[2023-11-06 01:44] VITALS: BP 127/59; PULSE 64; RESP 18; TEMP 36.6; O2SAT 96
== END 2023-11-06 01:45 | disposition home or self-care (01) ==
PROVIDERS: Emergency Provider Emergency Medicine; PCP Nurse Practitioner Family
DX: L03.315 Cellulitis of perineum (principal); N50.811 Right testicular pain; N50.812 Left testicular pain; I11.0 Hypertensive heart disease with heart failure; I50.9 Heart failure, unspecified; J44.89 Other specified chronic obstructive pulmonary disease; I25.10 Atherosclerotic heart disease of native coronary artery without angina pectoris; J45.40 Moderate persistent asthma, uncomplicated; G47.33 Obstructive sleep apnea (adult) (pediatric); F17.210 Nicotine dependence, cigarettes, uncomplicated; D72.829 Elevated white blood cell count, unspecified
CPT/HCPCS: 74177; 80053; 81001; 83036; 85025; 85610; 96374; 99285; Q9967

== ENCOUNTER 2023-12-21 18:32 | Outpatient (CLI) | payer MEDICARE, OTHER, SELFPAY | END 2023-12-21 23:59 | disposition home or self-care (01) | LOC: LAB.DROPOF 18:33 | PROVIDERS: PCP Student in an Organized Health Care Education/Training Program; Visit Provider Student in an Organized Health Care Education/Training Program | DX: R09.81 Nasal congestion; J34.89 Other specified disorders of nose and nasal sinuses; R05.9 Cough, unspecified | CPT/HCPCS: 87070; 87635 ==

== ENCOUNTER 2023-12-24 15:36 | Outpatient (CLI) | payer MEDICARE, OTHER, SELFPAY ==
--- NOTE | 2023-12-24 15:36 | US_ITS ---
PROCEDURE INFORMATION: Exam: US Scrotum and US Duplex Artery and Vein, Scrotum, Complete Exam date and time: 12/24/2023 3:55 PM Age: 48 years old Clinical indication: Scrotum pain TECHNIQUE: Imaging protocol: Real-time ultrasound of the scrotum. Real-time duplex ultrasound scan of the arterial and venous flow of the scrotum with B-mode, color Doppler flow and spectral waveform analysis. Complete exam. Duplex exam was performed to evaluate for torsion and other vascular conditions. COMPARISON: No relevant prior studies available. FINDINGS: Right testicle: Markedly heterogeneous RIGHT testicle measures 3.9 x 1.4 x 2.4 cm demonstrates microcalcifications. Left testicle: Markedly heterogeneous LEFT testicle measures 4.0 x 1.9 x 2.8 cm demonstrates microcalcifications. Epididymides: RIGHT epididymal cyst measuring 3 mm. Scrotum/soft tissues: Bilateral varicoceles without evidence of hydrocele on either side. Other findings: Doppler examination of the testicles with pulsed wave and color images was performed which demonstrate arterial/venous waveforms within normal limits. IMPRESSION: 1. Markedly heterogeneous testicles with microcalcifications. 2. Bilateral varicoceles. 3. RIGHT epididymal cyst/spermatocele. 4. No discrete testicular mass or abnormality. 5. Blood flow visualized to both testicles.
== END 2023-12-24 23:59 ==
LOC: RAD 15:36
PROVIDERS: PCP Nurse Practitioner Family; Visit Provider Urology
DX: N50.811 Right testicular pain (principal); N50.812 Left testicular pain
CPT/HCPCS: 76870

== ENCOUNTER 2024-01-07 15:04 | Outpatient (CLI) | payer MEDICARE, OTHER, SELFPAY ==
[2024-01-07 15:02] LABS: Microscopic, Urine URINE MICROSCOPIC (MICROSCOPIC)
[2024-01-07 15:41] LABS: Appearance,Urine CLEAR (Clear); Bilirubin,Urine Negative (Negative); Blood, Urine Negative (Negative); Color,Urine YELLOW (Yellow); Glucose,Urine (UA) TRACE (Negative); Ketones,Urine Negative (Negative); Leukocyte Esterase,Urine Negative (Negative); Nitrate,Urine Negative (Negative); PH,Urine 5.5 (5.0-8.5); Protein,Urine Negative (Negative); Specific Gravity, Urine <= 1.005 (1.005-1.030); Urobilinogen,Urine 0.2 EU/dl (0.2)
[2024-01-07 16:01] LABS: Squamous Epithelial Cell,Urine Occasional #/hpf (0-5)
== END 2024-01-07 23:59 ==
LOC: LAB.DROPOF 15:05
PROVIDERS: PCP Urology; Visit Provider Urology
DX: L03.315 Cellulitis of perineum; N50.811 Right testicular pain; N50.812 Left testicular pain
CPT/HCPCS: 81001

== ENCOUNTER 2024-02-01 06:00 | Day surgery (SDC) | payer MEDICARE, OTHER, SELFPAY ==
[2024-01-31 10:58] VITALS: BMI 44.6
[2024-02-01 06:29] VITALS: BP 105/68; PULSE 64; RESP 18; TEMP 36.3; O2SAT 94; BMI 44.6
[2024-02-01 06:44] LABS: Basophils # 0.1 K/mm3 (0-0.2); Basophils % 1.2 % (0.1-2.0); Chloride 104 mmol/L (98-107); Eosinophils # 0.5 K/mm3 (0.0-0.4); Hematocrit 39.4 % (42.0-52.0); Hemoglobin 13.4 g/dL (14.1-18.0); Lymphocytes # 2.8 K/mm3 (0.7-4.5); Lymphocytes % 25.5 % (10-50); Mean Corpuscular Hemoglobin 30.5 pg (27.0-31.2); Mean Corpuscular Volume 89.5 fl (80-94); Monocytes # 0.6 K/mm3 (0.1-1.0); Monocytes % 5.9 % (1.7-9.3); Neutrophils # 6.8 K/mm3 (1.8-7.8); Neutrophils % 62.4 % (37.0-80.0); Platelet Count 267 K/mm3 (142-424); Red Cell Distribution Width 14.5 % (11.5-17.5); Sodium 137 mmol/L (136-145); White Blood Count 10.9 K/mm3 (4.8-10.8)
[2024-02-01 06:47] LABS: Blood Urea Nitrogen 11 mg/dl (9-20); Creatinine Clearance Estimated 80 mL/min (50-200); Estimated Glomerular Filt Rate 65 ml/min (>60); GFR (African American) 78 ML/MIN (>60)
[2024-02-01 06:48] LABS: Calcium 9.2 mg/dl (8.4-10.2); Carbon Dioxide 27 mmol/L (22.0-30.0); Glucose 107 mg/dl (74-100)
[2024-02-01 06:50] VITALS: PULSE 62; PULSE 63
[2024-02-01] MEDS: IPRATROPIUM/ALBUTEROL 3 ML NEB IH (06:50)
[2024-02-01] MEDS: LACTATED RINGERS 1000ML 1,000 ML 25 ML IV (06:50)
--- NOTE | 2024-02-01 06:59 | SUR.PREOP ---
Cardiology visit report available but no cardiac clearance for today's surgery. Ananth Dupont CRNA updated and has reviewed most recent EKG and history. Dr. Rawls updated as well. and FLORENTINO in agreement to postpone procedure for today D/T no cardiac clearance and current s/s of SOA and history of CP more than 1x a week. Both providers spoke with pt and to explain and they are in agreement to postpone until seen again by cardiology on February 13. IV removed and pt dressing at present.
== END 2024-02-01 07:13 | disposition home or self-care (01) ==
LOC: OR 06:01
PROVIDERS: PCP Family Medicine; Visit Provider Surgery
PROC: (CPT 11420; principal; 2024-02-01 07:30)
DX: Z53.09 Procedure and treatment not carried out because of other contraindication (principal); R06.02 Shortness of breath; R07.9 Chest pain, unspecified; L03.315 Cellulitis of perineum
CPT/HCPCS: 11420; 80048; 85025; 94640

== ENCOUNTER 2024-02-15 05:58 | Day surgery (SDC) | payer MEDICARE, OTHER, SELFPAY ==
[2024-02-14 09:56] VITALS: BMI 44.6
[2024-02-15] VITALS (7 sets, daily range): BP systolic 113–131; BP diastolic 71–90; PULSE 56–68; RESP 16–18; TEMP 36.2–36.7; O2SAT 95–98; BMI 44.6
[2024-02-15] MEDS: LACTATED RINGERS 1000ML 1,000 ML 25 ML IV (06:31)
--- NOTE | 2024-02-15 06:45 | SUR.PREOP ---
Pt has Flagyl 500mg ordered. Pharmacy warning came up that dose is too low for pt's size. TC to on-call pharmacist, Jose Webster, to verify if ok to override. Joes said is okay to override at this time. Verified with Dr. Rawls that Flagyl 500mg IV is the dose he wants given.
--- NOTE | 2024-02-15 07:10 | P.PNANES_ITS ---
[facility] Disclaimer: The information contained in this section may have been updated after the patient was seen, as this information can be updated by other users. Medical History CHF (congestive heart failure) HTN (hypertension) COPD (chronic obstructive pulmonary disease) Sleep apnea Asthma Tardive dyskinesia Stopped smoking with greater than 20 pack year history Allergic rhinitis Dyspnea on exertion Major depressive disorder COVID-19 Moderate persistent asthma Allergic rhinitis, unspecified Stopped smoking with greater than 15 pack year history Tobacco abuse disorder Dyspnea on exertion Encounter for pre-operative cardiovascular clearance Chest pain Hypokalemia COVID-19 virus infection Edema Renal insufficiency Dyspnea Morbid obesity due to excess calories History of hyperlipidemia HARSH (obstructive sleep apnea) CAD (coronary artery disease), [place] coronary artery GERD (gastroesophageal reflux disease) Ex-smoker Obesity (BMI 30-39.9) Back pain Anxiety Surgical History History of surgery History of colonoscopy History of cardiac cath History of appendectomy Family History Other Coronary artery disease Diabetes Hyperlipidemia Hypertension Social History Smoking Status: Current every day smoker tobacco type: cigarettes packs per day: 1 second hand exposure: No alcohol intake: never substance use type: denies use current occupational status: disabled Travel in the last 8 weeks: None household members: spouse housing: house lives independently: No marital status: number of children: 0 current occupational exposures/hazards: No caffeine: Yes do you feel safe at home: Yes victim of physical abuse: No victim of emotional abuse: No victim of sexual abuse: No would you like helpful sources: No [facility] Anesthesia Checklist Patient Identification Patient Identification: Arm Band, Family and Verbal (Name & ) Structural Data Admitted From: Home Planned Operative Procedure/s: Excision/Incision & Drainage perirectal abscess Consent for Planned Operative Procedure(s) Verified: Yes Verified Documents: Surgical Consent and History and Physical NPO Status Verified Time NPO: 23:00 Chart Verification Results Verified: CBC, BMP, ECG and Chest Xray Additional verifications Patient : No Anesthesia Reactions: No Hx Blood Transfusions: No Blood Transfusion Reaction: No Cardiovascular Assessment Heart Sounds: S1 & S2 Pulse Rhythm: Irregular Peripheral Edema: Yes (3+ PA LE) Airway Assessment Mallampati Score:: Class III C-Spine Mobility Assessed: Yes (FROM) TMJ Mobility Assessed: Yes Dentition: Edentulous Neurological Assessment Level of Consciousness: Awake, Alert, Appropriate and Follows Commands Hx Seizures: No Numbness or tingling in extremities: Yes (PA LE) Anesthesia Plan Anesthesia Risk discussed: Yes Anesthesia Plan: Verified ASA Class: III Anesthesia Type: MAC
[2024-02-15] MEDS: METRONIDAZ/SOD CHL 500 MG/100 ML PIGGYBACK 100 MG IV (07:30)
[2024-02-15] MEDS: CEFAZOLIN SODIUM 2 GM in 0.9 % SODIUM CHLORIDE 100 ML IV (07:39)
[2024-02-15] MEDS: LIDOCAINE 1% 20ML MDV 20 ML (07:39)
--- NOTE | 2024-02-15 07:45 | EXP.OP.NOTE ---
Date of procedure: 02/15/24 Pre-op Diagnosis:: Perineal cyst with abscess Post-op Diagnosis:: Same Procedure performed:: Incision and drainage/excision of perineal cyst with recurrent abscess (1.5 cm excision) Surgeon:: Chris Rawls MD Anesthesia: MAC and local Estimated blood loss (mL): 1 Operative findings:: 1.5 cm cyst within subcutaneous tissue excised Operative note:: After informed consent was obtained the patient was taken to the operating room and maintained in the supine position. Monitored anesthesia care ensued and he was transferred to modified frog-leg position . This perineal region was prepped and draped in a sterile fashion. After infiltration with local anesthetic an incision was made around the mid/posterior perineal cystic lesion. Electrocautery was utilized to transect around the lesion and throughout the subcutaneous tissue. The lesion was excised in toto and passed off for pathologic evaluation. Electrocautery was used to achieve hemostasis and the wound was packed open with dry gauze. Dressings were applied and the patient was transferred to recovery in stable condition. Condition: stable Disposition: PACU Specimens:: Perineal cyst with recurrent abscess Complications:: No immediate
--- NOTE | 2024-02-15 08:03 | P.PNANES_ITS ---
[facility] Anesthesia Record Part I Anesthesia Record I Intake, IV Amount: 100 Hydration: Adequate Estimated blood loss (mL): 10 Urine output (mL): 0 Blood Products used (#): none Blood Pressure: 131/79 SaO2: 96 Pulse Rate: 67 Airway Patency: Patent Respiratory Rate: 18 Temperature: 97.1 F Patient is:: Awake (Talking) and Stable Stable to PACU at:: 07:57
== END 2024-02-15 08:44 | disposition home or self-care (01) ==
PROVIDERS: PCP Family Medicine; Visit Provider Surgery
PROC: (CPT 46922; principal; 2024-02-15 07:30)
DX: K61.0 Anal abscess (principal)
CPT/HCPCS: 46922; 96374; J0690

== ENCOUNTER 2024-03-09 18:28 | Emergency (ER) | payer MEDICARE, OTHER, SELFPAY ==
[2024-03-09 18:29] VITALS: BP 106/73; PULSE 83; RESP 18; TEMP 36.4; O2SAT 96; BMI 44.6
[2024-03-09 18:45] LABS: Apearance,Urine Clear (Clear); Bilirubin,Urine Negative (Negative); Blood, Urine Negative (Negative); Color,Urine Yellow (Yellow); Glucose,Urine (UA) Negative (Negative); Ketones,Urine Negative (Negative); Protein,Urine Negative (Negative); Specific Gravity, Urine 1.005 (1.005-1.030)
[2024-03-09 18:46] LABS: UTC Leukocyte Esterase,Urine Negative (Negative); UTC Nitrate,Urine Negative (Negative); Urobilinogen,Urine 0.2 EU/dl (0.2)
--- NOTE | 2024-03-09 18:52 | ED_ITS ---
Discharge Plan Disposition Patient Disposition: Home, Self-Care Condition: Good Prescriptions Prescriptions: New cyclobenzaprine 10 mg Tablet 10 mg PO BID PRN (Reason: Muscle Spasm) Qty: 20 0RF methylprednisolone 4 mg Tablets,Dose Pack 4 mg PO DIRECTED 6 Days Qty: 21 0RF Rx Instructions: Take 1 pack as directed for 6 days No Action aspirin 81 mg tablet,chewable 81 mg PO DAILY Qty: 90 2RF fluticasone propionate 50 mcg/actuation spray,suspension 2 spray INTRANASAL DAILY Qty: 9.9 2RF fluoxetine 40 mg capsule 40 mg PO DAILY Qty: 30 2RF isosorbide mononitrate 30 mg tablet extended release 24 hr 30 mg PO DAILY Qty: 90 3RF isosorbide mononitrate 60 mg tablet extended release 24 hr 60 mg PO DAILY Qty: 90 3RF varenicline [Chantix Continuing Month Box] 1 mg tablet 1 mg PO BID 84 Days Qty: 168 3RF albuterol sulfate 90 mcg/actuation HFA aerosol inhaler See Rx Instructions .ROUTE .COMPLEX Qty: 9 5RF Dose Instruction: INHALE 2 PUFFS BY MOUTH EVERY 6 HOURS NEEDED FOR SHORTNESS OF BREATH AND FOR WHEEZING Rx Instructions: INHALE 2 PUFFS BY MOUTH EVERY 6 HOURS NEEDED FOR SHORTNESS OF BREATH AND FOR WHEEZING gabapentin 100 mg capsule 100 mg PO BID Qty: 60 0RF atorvastatin 40 mg tablet See Rx Instructions .ROUTE .COMPLEX Qty: 90 3RF Rx Instructions: TAKE 1 TABLET BY MOUTH ONCE DAILY AT BEDTIME FOR CHOLESTEROL furosemide 40 mg tablet See Rx Instructions .ROUTE .COMPLEX Qty: 180 4RF Dose Instruction: TAKE 1 & 1/2 (ONE & ONE-HALF) TABLETS BY MOUTH ONCE DAILY FOR CARDIAC Rx Instructions: TAKE 1 & 1/2 (ONE & ONE-HALF) TABLETS BY MOUTH ONCE DAILY FOR CARDIAC spironolactone 100 mg tablet See Rx Instructions .ROUTE .COMPLEX Qty: 90 3RF Dose Instruction: TAKE 1 TABLET BY MOUTH ONCE DAILY FOR FLUID Rx Instructions: TAKE 1 TABLET BY MOUTH ONCE DAILY FOR FLUID metoprolol succinate 25 mg tablet extended release 24 hr 25 mg PO BID Qty: 60 5RF Rx Instructions: Take one tablet twice a day Ingrezza 40 mg capsule 40 mg PO DAILY Qty: 30 2RF omeprazole 40 mg capsule,delayed release(DR/EC) 40 mg PO DAILY Qty: 90 1RF Wegovy 0.25 mg/0.5 mL pen injector 0.25 mg SQ WEEKLY Qty: 2 5RF Rx Instructions: administer weeks 1 through 4 of therapy risperidone 1 mg tablet See Rx Instructions .ROUTE .COMPLEX Qty: 60 0RF Dose Instruction: TAKE 1 TABLET BY MOUTH TWICE DAILY FOR ANXIETY Rx Instructions: TAKE 1 TABLET BY MOUTH TWICE DAILY FOR ANXIETY trazodone 100 mg tablet See Rx Instructions .ROUTE .COMPLEX Qty: 30 0RF Dose Instruction: TAKE 1 TABLET BY MOUTH EVERY DAY AT BEDTIME NEEDED FOR INSOMNIA Rx Instructions: TAKE 1 TABLET BY MOUTH EVERY DAY AT BEDTIME NEEDED FOR INSOMNIA montelukast 10 mg tablet 10 mg PO DAILY fluticasone furoate-vilanterol [Breo Ellipta] 200-25 mcg/dose blister with device 1 inh inhalation DAILY nitroglycerin 0.4 mg tablet, sublingual See Rx Instructions .ROUTE .COMPLEX Rx Instructions: DISSOLVE ONE TABLET UNDER THE TONGUE EVERY 5 MINUTES NEEDED FOR CHEST PAIN. DO NOT EXCEED A TOTAL OF 3 DOSES IN 15 MINUTES hydrocodone-acetaminophen 5-325 mg tablet 1 tab PO Q6H PRN (Reason: post-pain; dressing changes) Qty: 6 0RF Referrals Follow up/Referrals: Carlos Voss MD [Primary Care Provider] - See instructions Activity Restrictions/Add. Instructions Additional Instructions/Restrictions: Go home and rest. It would be best if you rested tomorrow too. No heavy lifting. No twisting. Take the oral medications as directed. The muscle relaxer (cyclobenzaprine--Flexeril) will make you drowsy, so don't drive or operate heavy machinery after taking it. Don't start the oral steroids (medrol dose pack) until tomorrow, since you had the shots in here today. Follow up with your regular doctor. GO TO THE ER FOR ANY WORSENING SYMPTOMS OR CONCERN, ESPECIALLY BOWEL OR BL ADDER ISSUES, SADDLE AREA NUMBNESS, FEVER, ETC Instructions Patient Instructions: DI for Low Back Pain, Cyclobenzaprine, Methylprednisolone, Dexamethasone Injection, Ketorolac Injection Discharge ED [place] Hubbard [facility] [place] General Stated complaint: back pain Mode of Arrival: Ambulatory Source of Information: Patient and Spouse Limitations: No Limitations Time Seen by Provider: 03/09/24 18:52 Description of Symptoms (Recalled from Triage Doc. by RN): Pt has lower back/flank pain and this has been going on for over a week. HEENT Symptoms (Recalled from RN notes): No Resp Symptoms (Recalled from RN notes): No Skin Symptoms (Recalled from RN notes): No MS Symptoms (Recalled from RN notes): No Functional Status (Recalled from RN notes): n/a History of Present Illness Provider Complaint: He states that he has had left sided low back pain for the past 5 days. He denies any injury. He denies urinary complaints, but he would like to have his urine checked. He denies any fever/chills/malaise. Related Data Home Medications Medication Instructions Recorded Confirmed fluticasone furoate 200 1 inh inhalation DAILY breathing 01/31/23 03/05/24 mcg-vilanterol 25 mcg/dose inhalation powder (Breo Ellipta) montelukast 10 mg tablet 10 mg PO DAILY allergies 01/31/23 03/05/24 nitroglycerin 0.4 mg sublingual See Rx Instructions .Route 07/01/23 03/05/24 tablet .COMPLEX . Previous Rx's Medication Instructions Recorded aspirin 81 mg chewable tablet 81 mg PO DAILY Heart disease #90 04/25/22 tabs atorvastatin 40 mg tablet See Rx Instructions .Route 03/28/23 .COMPLEX High cholesterol #90 tabs fluticasone propionate 50 2 spray intranasal DAILY allergies 04/27/23 mcg/actuation nasal #9.9 mL spray,suspension furosemide 40 mg tablet See Rx Instructions .Route 09/04/23 .COMPLEX #180 tabs spironolactone 100 mg tablet See Rx Instructions .Route 10/24/23 .COMPLEX #90 tabs metoprolol succinate 25 mg 25 mg PO BID High blood pressure 12/04/23 tablet,extended release 24 hr #60 tabs fluoxetine 40 mg capsule 40 mg PO DAILY anxiety #30 caps 12/06/23 valbenazine 40 mg capsule 40 mg PO DAILY #30 caps 01/08/24 (Ingrezza) isosorbide mononitrate 30 mg 30 mg PO DAILY #90 tabs 01/17/24 tablet,extended release 24 hr isosorbide mononitrate 60 mg 60 mg PO DAILY #90 tabs 01/17/24 tablet,extended release 24 hr varenicline 1 mg tablet (Chantix 1 mg PO BID 12 weeks #168 tabs 01/17/24 Continuing Month Box) omeprazole 40 mg capsule,delayed 40 mg PO DAILY GERD #90 caps 01/22/24 release hydrocodone 5 mg-acetaminophen 325 1 tab PO Q6H PRN post-pain; 02/15/24 mg tablet dressing changes #6 tabs albuterol sulfate 90 mcg/actuation See Rx Instructions .Route 02/19/24 aerosol inhaler .COMPLEX #9 grams gabapentin 100 mg capsule 100 mg PO BID #60 caps 02/19/24 semaglutide (weight loss) 0.25 0.25 mg (0.5 mL) SQ WEEKLY #2 mL 02/20/24 mg/0.5 mL subcutaneous pen injector (Wegovy) risperidone 1 mg tablet See Rx Instructions .Route 03/04/24 .COMPLEX #60 tabs trazodone 100 mg tablet See Rx Instructions .Route 03/04/24 .COMPLEX #30 tabs cyclobenzaprine 10 mg tablet 10 mg PO BID PRN Muscle Spasm #20 03/09/24 tabs methylprednisolone 4 mg tablets in 4 mg PO DIRECTED 6 days #21 tabs 03/09/24 a dose pack Allergies Allergy/AdvReac Type Severity Reaction Status Date / Time No Known Allergies Allergy Verified 03/09/24 18:43 Worker's Comp Is this a Worker's Comp case?: No [facility] Disclaimer: The information contained in this section may have been updated after the patient was seen, as this information can be updated by other users. Medical History CHF (congestive heart failure) HTN (hypertension) COPD (chronic obstructive pulmonary disease) Sleep apnea Asthma Tardive dyskinesia Stopped smoking with greater than 20 pack year history Allergic rhinitis Dyspnea on exertion Major depressive disorder COVID-19 Moderate persistent asthma Allergic rhinitis, unspecified Stopped smoking with greater than 15 pack year history Tobacco abuse disorder Dyspnea on exertion Encounter for pre-operative cardiovascular clearance Chest pain Hypokalemia COVID-19 virus infection Edema Renal insufficiency Dyspnea Morbid obesity due to excess calories History of hyperlipidemia HARSH (obstructive sleep apnea) CAD (coronary artery disease), [place] coronary artery GERD (gastroesophageal reflux disease) Ex-smoker Obesity (BMI 30-39.9) Back pain Anxiety Surgical History History of surgery cyst on back removed History of colonoscopy History of cardiac cath History of appendectomy Family History Other Coronary artery disease Diabetes Hyperlipidemia Hypertension Social History Smoking Status: Current every day smoker tobacco type: cigarettes packs per day: 1 second hand exposure: No alcohol intake: never substance use type: denies use current occupational status: disabled Travel in the last 8 weeks: None household members: spouse housing: house lives independently: No marital status: number of children: 0 current occupational exposures/hazards: No caffeine: Yes do you feel safe at home: Yes victim of physical abuse: No victim of emotional abuse: No victim of sexual abuse: No would you like helpful sources: No ROS Obtained: Yes All systems reviewed & no additional complaints except as documented Constitutional Constitutional: Denies chills, Denies fever(s) and Denies headache(s) Eyes Eyes: Denies eye discharge ENT Ears, Nose, Mouth, and Throat: Denies dizziness, Denies otalgia, Denies headach e(s) and Denies sore throat Cardiovascular Cardiovascular: Denies chest pain Respiratory Respiratory: Denies shortness of breath, Denies chest congestion, Denies cough, Denies stridor and Denies wheezing Gastrointestinal Gastrointestingal: Denies nausea or vomiting Musculoskeletal Musculoskeletal: Reports system reviewed and no additional complaints, except as documented and Denies arthralgias Integumentary/Breasts Skin/Breast: Denies rash Neurologic Neurologic: Denies dizziness, Denies headache(s), Denies paresthesias and Reports radicular pain Allergic/Immunologic Allergic/Immunologic: Denies wheezing Physical Exam General General appearance: alert and in no apparent distress Head Head exam: atraumatic, normocephalic and normal inspection Eye Eye exam: Present normal appearance, PERRL and EOMI ENT ENT exam: Present normal exam, normal oropharynx, mucous membranes moist, TM's normal bilaterally and normal external ear exam Neck Neck exam: Present normal inspection, full ROM and trachea midline; Absent meningismus or lymphadenopathy Chest Chest inspection: Present normal inspection and symmetric chest wall rise; Absent tenderness Respiratory Respiratory exam: Present normal lung sounds bilaterally; Absent respiratory distress Cardiovascular Cardiovascular exam: Present regular rate and normal rhythm; Absent JVD Abdominal Exam Abdominal exam: Present soft and normal bowel sounds; Absent distention, tenderness or guarding Extremities Exam Extremities exam: Present normal inspection, full ROM and normal capillary refil l; Absent calf tenderness Back Exam Back exam: Present normal inspection; Absent tenderness Neurological Exam Neurological exam: Present alert, oriented X3, CN II-XII intact, normal gait and reflexes normal; Absent motor sensory deficit Expanded Neurological Exam Speech: Present fluid speech Cranial nerves: Normal: EOM function (II, III, IV, ), facial sensation (V), facial palsy (VII), gag reflex (IX), spinal accessory function (XI) and tongue deviation (XII) Cerebellar function: normal gait Motor strength - LUE: 5/5 Motor strength - RUE: 5/5 Motor strength - LLE: 5/5 Motor strength - RLE: 5/5 Sensory exam upper extremity: Normal: light touch and 2 point discrimination Sensory exam lower extremity: Normal: light touch and 2 point discrimination DTR: 2+: biceps (L), biceps (R), patellar (L), patellar (R), Achilles tendon (L) and Achilles tendon (R) Spinal cord function: Absent saddle anesthesia Psychiatric Psychiatric exam: Present normal affect and normal mood Skin Skin exam: Present warm, dry, intact and normal color Lymphatic Lymphatic Findings: no adenopathy Medical Decision Making Medical Records Medical records reviewed: No I reviewed the patient's medical records. Jonathan Inquiry Pt receiving controlled substance: No Vital Signs: 03/09/24 18:29 Temperature 97.6 F Temperature Source Oral Pulse Rate [Right Radial] 83 Respiratory Rate 18 Blood Pressure [Right Arm] 106/73 L Blood Pressure Mean [Right Arm] 84 Blood Pressure Source [Right Arm] Automatic Cuff Blood Pressure Position [Right Arm] Sitting 02 Sat by Pulse Oximetry 96 Oxygen Delivery Method Room Air Lab Data Lab Results 03/09/24 18:44: Urine Color Yellow, Urine Appearance Clear, Urine pH 6.0, Ur Specific [place] 1.005, Urine Protein Negative, Urine Glucose (UA) Negative, Urine Ketones Negative, Urine Blood Negative, Urine Nitrate Negative, Urine Bilirubin Negative, Urine Urobilinogen 0.2, Ur Leukocyte Esterase Negative Orders (Tests/Meds): ORDERS Category Date Time Status Urine Culture Stat Micro 03/09/24 18:46 Ordered
[2024-03-09] MEDS: DEXAMETHASONE 4MG/ML 1ML VIAL 8 MG IM (19:02)
[2024-03-09] MEDS: KETOROLAC 60MG/2ML VIAL 60 MG IM (19:02)
[2024-03-09 19:26] VITALS: BP 106/73; PULSE 83; RESP 18; TEMP 36.4; O2SAT 96
== END 2024-03-09 19:26 | disposition home or self-care (01) ==
PROVIDERS: Emergency Provider Nurse Practitioner Family; PCP Family Medicine
DX: M54.50 Low back pain, unspecified (principal)
CPT/HCPCS: 81003; 87086; 96372; 99212; 99214; G0463

== ENCOUNTER 2024-03-17 10:35 | Outpatient (CLI) | payer MEDICARE, OTHER, SELFPAY ==
--- NOTE | 2024-03-17 10:40 | XR_ITS ---
FINAL REPORT CLINICAL HISTORY: history of fracture, chronic low back pain COMPARISON: CT abdomen and pelvis dated 11/06/2023 FINDINGS: LUMBAR SPINE 3 views were obtained. There is no acute fracture. There is a chronic L2 compression fracture which appears stable compared to CT scan dated 11/06/2023. There is no malalignment. There are mild degenerative changes with multilevel osteophytes. There is no soft tissue abnormality. IMPRESSION: Chronic degenerative changes with no acute bony abnormality. Reviewed, Interpreted and Dictated by Karlos Foss III, MD Transcribed by Teri Cheema Authenticated and [facility]
== END 2024-03-17 23:59 | disposition home or self-care (01) ==
LOC: RAD 10:36
PROVIDERS: PCP Family Medicine; Visit Provider Family Medicine
DX: M54.50 Low back pain, unspecified (principal); M79.604 Pain in right leg; M79.605 Pain in left leg
CPT/HCPCS: 72100

== ENCOUNTER 2024-04-30 07:57 | Outpatient (CLI) | payer MEDICARE, OTHER, SELFPAY ==
--- NOTE | 2024-04-30 07:58 | US_ITS ---
FINAL REPORT TECHNIQUE: Multiple transverse and longitudinal images CLINICAL HISTORY: nausea, vomiting, right upper quadrant pain COMPARISON: None FINDINGS: The gallbladder shows no wall thickening, distention or stone disease. No biliary ductal dilatation is appreciated. No fluid collections are seen. Fatty infiltration of the liver is present. Limited portions of the right kidney are unremarkable. IMPRESSION: No evidence of cholelithiasis or biliary ductal dilatation. Fatty infiltration of the liver. Reviewed, Interpreted and Dictated by Paris Garcia MD Transcribed by Libby Yepez Authenticated and [facility]
== END 2024-04-30 23:59 | disposition home or self-care (01) ==
LOC: RAD 07:58
PROVIDERS: PCP Family Medicine; Visit Provider Family Medicine
DX: R10.11 Right upper quadrant pain (principal); R11.2 Nausea with vomiting, unspecified
CPT/HCPCS: 76705

== ENCOUNTER 2024-05-01 23:52 | Emergency (ER) | payer MEDICARE, OTHER, SELFPAY ==
[2024-05-01 23:53] VITALS: BP 143/83; PULSE 81; RESP 20; TEMP 36.7; O2SAT 96; BMI 45.7
--- NOTE | 2024-05-02 | HMH.EDGENADL ---
Discharge Plan Disposition Patient Disposition: Home, Self-Care Condition: Good Prescriptions Prescriptions: New ondansetron 4 mg tablet,disintegrating 4 mg PO Q6H PRN (Reason: nausea and vomiting) Qty: 10 0RF No Action aspirin 81 mg tablet,chewable 81 mg PO DAILY Qty: 90 2RF fluticasone propionate 50 mcg/actuation spray,suspension 2 spray INTRANASAL DAILY Qty: 9.9 2RF cyclobenzaprine 10 mg tablet 10 mg PO TID Qty: 90 1RF gabapentin 300 mg capsule 300 mg PO TID Qty: 90 1RF isosorbide mononitrate 30 mg tablet extended release 24 hr 30 mg PO DAILY Qty: 90 3RF isosorbide mononitrate 60 mg tablet extended release 24 hr 60 mg PO DAILY Qty: 90 3RF varenicline [Chantix Continuing Month Box] 1 mg tablet 1 mg PO BID 84 Days Qty: 168 3RF albuterol sulfate 90 mcg/actuation HFA aerosol inhaler See Rx Instructions .ROUTE .COMPLEX Qty: 9 5RF Dose Instruction: INHALE 2 PUFFS BY MOUTH EVERY 6 HOURS NEEDED FOR SHORTNESS OF BREATH AND FOR WHEEZING Rx Instructions: INHALE 2 PUFFS BY MOUTH EVERY 6 HOURS NEEDED FOR SHORTNESS OF BREATH AND FOR WHEEZING furosemide 40 mg tablet See Rx Instructions .ROUTE .COMPLEX Qty: 180 4RF Dose Instruction: TAKE 1 & 1/2 (ONE & ONE-HALF) TABLETS BY MOUTH ONCE DAILY FOR CARDIAC Rx Instructions: TAKE 1 & 1/2 (ONE & ONE-HALF) TABLETS BY MOUTH ONCE DAILY FOR CARDIAC spironolactone 100 mg tablet See Rx Instructions .ROUTE .COMPLEX Qty: 90 3RF Dose Instruction: TAKE 1 TABLET BY MOUTH ONCE DAILY FOR FLUID Rx Instructions: TAKE 1 TABLET BY MOUTH ONCE DAILY FOR FLUID metoprolol succinate 25 mg tablet extended release 24 hr 25 mg PO BID Qty: 60 5RF Rx Instructions: Take one tablet twice a day omeprazole 40 mg capsule,delayed release(DR/EC) 40 mg PO DAILY Qty: 90 1RF Wegovy 0.25 mg/0.5 mL pen injector 0.25 mg SQ WEEKLY Qty: 2 5RF Rx Instructions: administer weeks 1 through 4 of therapy atorvastatin 40 mg tablet See Rx Instructions .ROUTE .COMPLEX Qty: 90 3RF Dose Instruction: TAKE 1 TABLET BY MOUTH ONCE DAILY AT BEDTIME FOR HIGH CHOLESTEROL Rx Instructions: TAKE 1 TABLET BY MOUTH ONCE DAILY AT BEDTIME FOR HIGH CHOLESTEROL trazodone 100 mg tablet See Rx Instructions .ROUTE .COMPLEX Qty: 30 0RF Dose Instruction: TAKE 1 TABLET BY MOUTH EVERY DAY AT BEDTIME NEEDED FOR INSOMNIA Rx Instructions: TAKE 1 TABLET BY MOUTH EVERY DAY AT BEDTIME NEEDED FOR INSOMNIA fluoxetine 40 mg capsule 40 mg PO DAILY Qty: 30 2RF Ingrezza 40 mg capsule 40 mg PO DAILY Qty: 30 3RF risperidone 1 mg tablet See Rx Instructions .ROUTE .COMPLEX Qty: 60 0RF Dose Instruction: TAKE 1 TABLET BY MOUTH TWICE DAILY FOR ANXIETY Rx Instructions: TAKE 1 TABLET BY MOUTH TWICE DAILY FOR ANXIETY montelukast 10 mg tablet 10 mg PO DAILY fluticasone furoate-vilanterol [Breo Ellipta] 200-25 mcg/dose blister with device 1 inh inhalation DAILY nitroglycerin 0.4 mg tablet, sublingual See Rx Instructions .ROUTE .COMPLEX Rx Instructions: DISSOLVE ONE TABLET UNDER THE TONGUE EVERY 5 MINUTES NEEDED FOR CHEST PAIN. DO NOT EXCEED A TOTAL OF 3 DOSES IN 15 MINUTES Referrals Follow up/Referrals: Carlos Voss MD [Primary Care Provider] - See instructions Activity Restrictions/Add. Instructions Additional Instructions/Restrictions: You were evaluated in the ER. You are appropriate for discharge at this time. Follow-up with your primary care physician in the next 2 to 3 days to discuss your visit to the ER and for reevaluation of your ongoing symptoms. Take the prescribed Zofran if needed for nausea or vomiting. Drink plenty of water. Return to the ER with new, worsening, or otherwise concerning symptoms. Clinical Impressions Clinical Impression: Nausea, vomiting, and diarrhea Instructions Patient Instructions: DI for Diarrhea
[2024-05-02 00:07] LABS: Coronavirus 19, PCR Not Detected (NotDetected); Influenza A, PCR Not Detected (NotDetected); Influenza B, PCR Not Detected (NotDetected)
--- NOTE | 2024-05-02 00:07 | CT_ITS ---
PROCEDURE INFORMATION: Exam: CT Abdomen And Pelvis With Contrast Exam date and time: 05/02/2024 12:39 AM Age: 49 years old Clinical indication: Abdominal pain; Additional info: Abd pain epigastric and ruq, n/v/d TECHNIQUE: Imaging protocol: Computed tomography of the abdomen and pelvis with contrast. Radiation optimization: All CT scans at this facility use at least one of these dose optimization techniques: automated exposure control; mA and/or kV adjustment per patient size (includes targeted exams where dose is matched to clinical indication); or iterative reconstruction. Contrast material: ISOVUE; Contrast volume: 75 ml; Contrast route: IV; COMPARISON: 1. CT ABDOMEN PELVIS W CON 11/06/2023 12:[address] ABDOMEN PELVIS W CON 12/10/2022 11:[address] ANGIO ABDOMEN PELVIS 10/31/2022 7:33 PM FINDINGS: Lungs: There is some atelectasis of the left lung base. Liver: Normal. Gallbladder and biliary ducts: There is fundal adenomyomatosis of the gallbladder. There is mild pericholecystic stranding. Pancreas: There is fatty replacement of the pancreas. Spleen: There are multiple calcifications in the spleen most likely reflects small granulomas. Adrenal glands: The adrenal glands appear normal. Kidneys and ureters: There is a simple appearing left midpole renal cyst. Stomach and bowel: The stomach, small bowel, and colon are well-distended and show no evidence of wall thickening, masses, or obstruction. Appendix: No evidence of appendicitis. Intraperitoneal space: Unremarkable. Vasculature: The abdominal aorta and its major branches appear normal without evidence of aneurysm or stenosis. There are pelvic phleboliths. Lymph nodes: No lymphadenopathy. Urinary bladder: Unremarkable as visualized. Reproductive: No acute process. Bones/joints: The visualized osseous structures of the abdomen and pelvis appear normal for patient age. Soft tissues: There is a small fat containing umbilical hernia. IMPRESSION: Mild pericholecystic stranding with fundal adenomyomatosis, consider right upper quadrant ultrasound for further evaluation. COMMENTS: Consistent with the [employer]'s Incidental Findings Committee white paper (J Am Zelalem [employer]iol 2018): Any incidental renal lesion less than 1 cm or classified as too small to characterize, or any incidental cystic renal lesion characterized as simple-appearing, is likely benign. No follow-up imaging is recommended for these lesions per consensus recommendations based on imaging criteria.
--- NOTE | 2024-05-02 00:12 | ECG_ITS ---
APPROVED REPORT Exam: Resting ECG HR:82 bpm ECG Measurements Heart Rate 82 AXES MI 195 P 58 QRSd 96 QRS 28 QT 384 T 61 QTc 423 Conclusion SINUS RHYTHM LOW QRS VOLTAGE IN PRECORDIAL LEADS [QRS DEFLECTION < 1.0 mV IN CHEST LEADS] Q waves in inferior leads, no STEMI ABNORMAL ECG Electronically signed by : EDELMIRA NEVES, 05/04/2024 03:40:48
[2024-05-02 00:13] LABS: Basophils # 0.1 K/mm3 (0-0.2); Basophils % 0.9 % (0.1-2.0); Eosinophils # 0.5 K/mm3 (0.0-0.4); Eosinophils % 4.3 % (0.1-12.0); Hematocrit 40.4 % (42.0-52.0); Hemoglobin 13.4 g/dL (14.1-18.0); Lymphocytes # 2.9 K/mm3 (0.7-4.5); Lymphocytes % 25.8 % (10-50); Mean Corpuscular HGB Conc 33.1 g/dL (31.8-35.4); Mean Corpuscular Hemoglobin 29.4 pg (27.0-31.2); Mean Corpuscular Volume 88.7 fl (80-94); Mean Platelet Volume 7.8 fl (7.4-10.4); Monocytes # 0.7 K/mm3 (0.1-1.0); Neutrophils # 7.2 K/mm3 (1.8-7.8); Neutrophils % 63.1 % (37.0-80.0); Platelet Count 297 K/mm3 (142-424); Red Blood Count 4.55 M/mm3 (4.60-6.20); Red Cell Distribution Width 14.4 % (11.5-17.5); White Blood Count 11.4 K/mm3 (4.8-10.8)
[2024-05-02 00:15] LABS: Chloride 107 mmol/L (98-107); Potassium 3.9 mmoL/L (3.5-5.1); Sodium 139 mmol/L (136-145)
[2024-05-02 00:17] LABS: Alanine Aminotransferase 23 U/L (12-78); Aspartate Amino Transferase 24 U/L (17-59); Bilirubin,Total 0.3 mg/dl (0.2-1.3); Blood Urea Nitrogen 11 mg/dl (9-20); Creatinine Clearance Estimated 79 mL/min (50-200); Estimated Glomerular Filt Rate 64 ml/min (>60); GFR (African American) 78 ML/MIN (>60)
[2024-05-02 00:18] LABS: Albumin Level 3.8 g/dl (3.5-5.0); Albumin/Globulin Ratio 1.2 (1.1-1.8); Alkaline Phosphatase 77 U/L (38-126); Anion Gap 10.9 mEq/L (5-15); Calcium 9.5 mg/dl (8.4-10.2); Carbon Dioxide 25 mmol/L (22.0-30.0); Globulin 3.2 g/dL (1.3-3.2); Glucose 124 mg/dl (74-100); Lipase 48 U/L (23-300)
[2024-05-02 00:19] LABS: Prothrombin Time 10.2 seconds (10.1-12.5)
[2024-05-02 00:30] VITALS: BP 122/67; PULSE 85; RESP 20; O2SAT 95
[2024-05-02 00:30] LABS: Troponin I < 0.01 ng/ml (0.00-0.034)
--- NOTE | 2024-05-02 00:32 | PC.NURSE ---
Urine sent up to lab at this time.
[2024-05-02 00:37] LABS: Microscopic, Urine URINE MICROSCOPIC (MICROSCOPIC)
[2024-05-02 00:42] LABS: Appearance,Urine CLEAR (Clear); Bilirubin,Urine Negative (Negative); Blood, Urine Negative (Negative); Color,Urine YELLOW (Yellow); Glucose,Urine (UA) Negative (Negative); Ketones,Urine Negative (Negative); Leukocyte Esterase,Urine Negative (Negative); Nitrate,Urine Negative (Negative); PH,Urine 6.5 (5.0-8.5); Protein,Urine Negative (Negative); Urobilinogen,Urine 0.2 EU/dl (0.2)
[2024-05-02 01:00] VITALS: BP 95/70; PULSE 68; O2SAT 96
[2024-05-02 01:02] LABS: Bacteria,Urine 1+ /lpf; Mucus,Urine 1+ /lpf
[2024-05-02 01:06] LABS: Lactic Acid 1.1 mmol/L (0.7-2.1)
--- NOTE | 2024-05-02 01:28 | PC.NURSE ---
Provided patient with Starry for PO challenge. Patient reports nausea has improved.
[2024-05-02 01:30] VITALS: BP 110/63; PULSE 62; RESP 17; O2SAT 96
[2024-05-02 01:50] VITALS: BP 110/63; PULSE 67; RESP 17; TEMP 36.8; O2SAT 96
== END 2024-05-02 01:59 | disposition home or self-care (01) ==
PROVIDERS: Emergency Provider Emergency Medicine; PCP Family Medicine
DX: R10.13 Epigastric pain (principal); R11.2 Nausea with vomiting, unspecified; R19.7 Diarrhea, unspecified; F17.210 Nicotine dependence, cigarettes, uncomplicated; J44.9 Chronic obstructive pulmonary disease, unspecified; I11.0 Hypertensive heart disease with heart failure; I50.9 Heart failure, unspecified; K21.9 Gastro-esophageal reflux disease without esophagitis; I25.10 Atherosclerotic heart disease of native coronary artery without angina pectoris; E66.01 Morbid (severe) obesity due to excess calories; Z68.42 Body mass index [BMI] 45.0-49.9, adult
CPT/HCPCS: 74177; 80053; 81001; 83605; 83690; 84484; 85025; 85610; 87636; 93005; 96361; 96374; 96375; 99285; J1885; J2405; J7120; Q9967

== ENCOUNTER 2024-05-13 01:36 | Emergency (ER) | payer MEDICARE, OTHER, SELFPAY ==
[2024-05-13 01:37] VITALS: BP 103/72; PULSE 83; RESP 16; TEMP 36.6; O2SAT 95; BMI 43.7
--- NOTE | 2024-05-13 02:24 | CT_ITS ---
PROCEDURE INFORMATION: Exam: CT Abdomen And Pelvis With Contrast Exam date and time: 05/13/2024 3:06 AM Age: 49 years old Clinical indication: Abdominal pain; Additional info: Epigastric and rlq abd pain TECHNIQUE: Imaging protocol: Computed tomography of the abdomen and pelvis with contrast. Radiation optimization: All CT scans at this facility use at least one of these dose optimization techniques: automated exposure control; mA and/or kV adjustment per patient size (includes targeted exams where dose is matched to clinical indication); or iterative reconstruction. Contrast material: ISOVUE; Contrast volume: 75 ml; Contrast route: IV; COMPARISON: CT ABDOMEN PELVIS W CON 05/02/2024 12:39 AM FINDINGS: Lungs: Trace atelectasis or scar noted in the left lung base. Liver: Normal. No mass. Gallbladder and biliary ducts: Normal. No calcified stones. No ductal dilation. Pancreas: Normal. No ductal dilation. Spleen: Normal. No splenomegaly. Adrenal glands: Normal. No mass. Kidneys and ureters: Normal. No hydronephrosis. Stomach and bowel: Unremarkable. No obstruction. No mucosal thickening. Appendix: The appendix is not identified but no evidence of appendicitis. Intraperitoneal space: Unremarkable. No free air. No significant fluid collection. Vasculature: Atherosclerosis is evident. Lymph nodes: Unremarkable. No enlarged lymph nodes. Urinary bladder: Unremarkable as visualized. Reproductive: Unremarkable as visualized. Bones/joints: L2 compression deformity is unchanged. Moderate lumbar spine degenerative changes. Facet joint degenerative changes are present. Multifocal neural foraminal stenosis, due to degeneration. Soft tissues: Unremarkable. IMPRESSION: No acute intra-abdominal process identified.
--- NOTE | 2024-05-13 02:27 | ED_ITS ---
Discharge Plan Disposition Patient Disposition: Home, Self-Care Prescriptions Prescriptions: New sucralfate 1 gram tablet 1 g PO TID 14 Days Qty: 42 0RF No Action aspirin 81 mg tablet,chewable 81 mg PO DAILY Qty: 90 2RF fluticasone propionate 50 mcg/actuation spray,suspension 2 spray INTRANASAL DAILY Qty: 9.9 2RF cyclobenzaprine 10 mg tablet 10 mg PO TID Qty: 90 1RF gabapentin 300 mg capsule 300 mg PO TID Qty: 90 1RF Wegovy 0.5 mg/0.5 mL pen injector 0.5 mg SQ WEEKLY Qty: 2.5 0RF Rx Instructions: administer weeks 5 through 8 of therapy isosorbide mononitrate 30 mg tablet extended release 24 hr 30 mg PO DAILY Qty: 90 3RF isosorbide mononitrate 60 mg tablet extended release 24 hr 60 mg PO DAILY Qty: 90 3RF varenicline [Chantix Continuing Month Box] 1 mg tablet 1 mg PO BID 84 Days Qty: 168 3RF albuterol sulfate 90 mcg/actuation HFA aerosol inhaler See Rx Instructions .ROUTE .COMPLEX Qty: 9 5RF Dose Instruction: INHALE 2 PUFFS BY MOUTH EVERY 6 HOURS NEEDED FOR SHORTNESS OF BREATH AND FOR WHEEZING Rx Instructions: INHALE 2 PUFFS BY MOUTH EVERY 6 HOURS NEEDED FOR SHORTNESS OF BREATH AND FOR WHEEZING furosemide 40 mg tablet See Rx Instructions .ROUTE .COMPLEX Qty: 180 4RF Dose Instruction: TAKE 1 & 1/2 (ONE & ONE-HALF) TABLETS BY MOUTH ONCE DAILY FOR CARDIAC Rx Instructions: TAKE 1 & 1/2 (ONE & ONE-HALF) TABLETS BY MOUTH ONCE DAILY FOR CARDIAC spironolactone 100 mg tablet See Rx Instructions .ROUTE .COMPLEX Qty: 90 3RF Dose Instruction: TAKE 1 TABLET BY MOUTH ONCE DAILY FOR FLUID Rx Instructions: TAKE 1 TABLET BY MOUTH ONCE DAILY FOR FLUID metoprolol succinate 25 mg tablet extended release 24 hr 25 mg PO BID Qty: 60 5RF Rx Instructions: Take one tablet twice a day omeprazole 40 mg capsule,delayed release(DR/EC) 40 mg PO DAILY Qty: 90 1RF atorvastatin 40 mg tablet See Rx Instructions .ROUTE .COMPLEX Qty: 90 3RF Dose Instruction: TAKE 1 TABLET BY MOUTH ONCE DAILY AT BEDTIME FOR HIGH CHOLESTEROL Rx Instructions: TAKE 1 TABLET BY MOUTH ONCE DAILY AT BEDTIME FOR HIGH CHOLESTEROL trazodone 100 mg tablet See Rx Instructions .ROUTE .COMPLEX Qty: 30 0RF Dose Instruction: TAKE 1 TABLET BY MOUTH EVERY DAY AT BEDTIME NEEDED FOR INSOMNIA Rx Instructions: TAKE 1 TABLET BY MOUTH EVERY DAY AT BEDTIME NEEDED FOR INSOMNIA fluoxetine 40 mg capsule 40 mg PO DAILY Qty: 30 2RF Ingrezza 40 mg capsule 40 mg PO DAILY Qty: 30 3RF risperidone 1 mg tablet See Rx Instructions .ROUTE .COMPLEX Qty: 60 0RF Dose Instruction: TAKE 1 TABLET BY MOUTH TWICE DAILY FOR ANXIETY Rx Instructions: TAKE 1 TABLET BY MOUTH TWICE DAILY FOR ANXIETY montelukast 10 mg tablet 10 mg PO DAILY fluticasone furoate-vilanterol [Breo Ellipta] 200-25 mcg/dose blister with device 1 inh inhalation DAILY nitroglycerin 0.4 mg tablet, sublingual See Rx Instructions .ROUTE .COMPLEX Rx Instructions: DISSOLVE ONE TABLET UNDER THE TONGUE EVERY 5 MINUTES NEEDED FOR CHEST PAIN. DO NOT EXCEED A TOTAL OF 3 DOSES IN 15 MINUTES ondansetron 4 mg tablet,disintegrating 4 mg PO Q6H PRN (Reason: nausea and vomiting) Qty: 10 0RF Referrals Follow up/Referrals: Carlos Voss MD [Primary Care Provider] - See instructions Activity Restrictions/Add. Instructions Additional Instructions/Restrictions: You were evaluated in the ER. You are appropriate for discharge at this time. Drink plenty of fluids. Make an appointment with your primary care physician for reevaluation in 3 days. Also call GI and make an appointment with them as soon as possible. Return to the ER with new, worsening, or otherwise concerning symptoms. Clinical Impressions Clinical Impression: Nausea & vomiting, Epigastric abdominal pain Instructions Patient Instructions: DI for Acute Abdominal Pain Print Language Print Language: Gibralt[place] Discharge ED Provider: Hallie Dhaliwal Adult [facility] General Chief complaint: Abdominal Pain Stated complaint: vomitting, heart burn Time Seen by Provider: 05/13/24 01:58 Mode of Arrival: Ambulatory Source of Information: Patient Limitations: No Limitations Description of Symptoms (Recalled from ER Triage Doc. by RN): Patient presents to ED with heartburn, vomiting, and upper abd pain that started tonight around 23:00. Patient states he was having chest pain at home and took a nitro, patient states he started to vomit at that time. Patient denies any chest pain at this time. History of Present Illness HPI narrative: 49-year-old male presents to the ER for complaints of epigastric abdominal pain, 3 episodes of nonbloody, nonbilious emesis. Patient states he thought it could be his heart so he took a nitro without any relief of symptoms. Patient denies any chest pain. Patient states his symptoms have been consistent since last time he was evaluated in the ER which was approximately 10 days ago. Patient states he took Zofran without improvement of symptoms. Patient denies diarrhea. He demonstrates to his epigastric region when describing pain. He does not have fevers. Patient reports his symptoms have been unchanged since his last discharge from the ER but he got sick of having them so he came into the ER tonight. Related Data Home Medications ?Medication ?Instructions ?Recorded ?Confirmed fluticasone furoate 200 1 inh inhalation DAILY breathing 01/31/23 05/06/24 mcg-vilanterol 25 mcg/dose inhalation powder (Breo Ellipta) montelukast 10 mg tablet 10 mg PO DAILY allergies 01/31/23 05/06/24 nitroglycerin 0.4 mg sublingual See Rx Instructions .Route 07/01/23 05/06/24 tablet .COMPLEX . Previous Rx's ?Medication ?Instructions ?Recorded aspirin 81 mg chewable tablet 81 mg PO DAILY Heart disease #90 04/25/22 tabs fluticasone propionate 50 2 spray intranasal DAILY allergies 04/27/23 mcg/actuation nasal #9.9 mL spray,suspension furosemide 40 mg tablet See Rx Instructions .Route 09/04/23 .COMPLEX #180 tabs spironolactone 100 mg tablet See Rx Instructions .Route 10/24/23 .COMPLEX #90 tabs metoprolol succinate 25 mg 25 mg PO BID High blood pressure 12/04/23 tablet,extended release 24 hr #60 tabs isosorbide mononitrate 30 mg 30 mg PO DAILY #90 tabs 01/17/24 tablet,extended release 24 hr isosorbide mononitrate 60 mg 60 mg PO DAILY #90 tabs 01/17/24 tablet,extended release 24 hr varenicline 1 mg tablet (Chantix 1 mg PO BID 12 weeks #168 tabs 01/17/24 Continuing Month Box) omeprazole 40 mg capsule,delayed 40 mg PO DAILY GERD #90 caps 01/22/24 release albuterol sulfate 90 mcg/actuation See Rx Instructions .Route 02/19/24 aerosol inhaler .COMPLEX #9 grams atorvastatin 40 mg tablet See Rx Instructions .Route 03/14/24 .COMPLEX #90 tabs cyclobenzaprine 10 mg tablet 10 mg PO TID #90 tabs 03/18/24 gabapentin 300 mg capsule 300 mg PO TID #90 caps 03/18/24 trazodone 100 mg tablet See Rx Instructions .Route 03/31/24 .COMPLEX #30 tabs fluoxetine 40 mg capsule 40 mg PO DAILY anxiety #30 caps 04/14/24 valbenazine 40 mg capsule 40 mg PO DAILY #30 caps 04/22/24 (Ingrezza) risperidone 1 mg tablet See Rx Instructions .Route 04/30/24 .COMPLEX #60 tabs ondansetron 4 mg disintegrating 4 mg PO Q6H PRN nausea and 05/02/24 tablet vomiting #10 tabs semaglutide (weight loss) 0.5 0.5 mg (0.5 mL) SQ WEEKLY #2.5 mL 05/06/24 mg/0.5 mL subcutaneous pen injector (Grabielgovy) sucralfate 1 gram tablet 1 g PO TID 2 weeks #42 tabs 05/13/24 Allergies Allergy/AdvReac Type Severity Reaction Status Date / Time No Known Allergies Allergy Verified 05/06/24 09:09 [facility] Disclaimer: The information contained in this section may have been updated after the patient was seen, as this information can be updated by other users. Medical History Testicular microlithiasis Low back pain Low back pain radiating to both legs CHF (congestive heart failure) HTN (hypertension) COPD (chronic obstructive pulmonary disease) Sleep apnea Asthma Tardive dyskinesia Stopped smoking with greater than 20 pack year history Allergic rhinitis Dyspnea on exertion Major depressive disorder COVID-19 Moderate persistent asthma Allergic rhinitis, unspecified Stopped smoking with greater than 15 pack year history Tobacco abuse disorder Dyspnea on exertion Encounter for pre-operative cardiovascular clearance Chest pain Hypokalemia COVID-19 virus infection Edema Renal insufficiency Dyspnea Morbid obesity due to excess calories History of hyperlipidemia HARSH (obstructive sleep apnea) CAD (coronary artery disease), [place] coronary artery GERD (gastroesophageal reflux disease) Ex-smoker Obesity (BMI 30-39.9) Back pain Anxiety Surgical History History of surgery cyst on back removed History of colonoscopy History of cardiac cath History of appendectomy Family History Other Coronary artery disease Diabetes Hyperlipidemia Hypertension Social History Smoking Status: Current every day smoker tobacco type: cigarettes packs per day: 1 second hand exposure: No alcohol intake: never substance use type: denies use current occupational status: disabled Travel in the last 8 weeks: None household members: spouse housing: house lives independently: No marital status: number of children: 0 current occupational exposures/hazards: No caffeine: Yes do you feel safe at home: Yes victim of physical abuse: No victim of emotional abuse: No victim of sexual abuse: No would you like helpful sources: No ROS Obtained: Yes All systems reviewed & no additional complaints except as documented Constitutional Constitutional: Denies chills, Denies fever(s), Denies headache(s) and Denies weakness Eyes Eyes: Denies change in vision ENT Ears, Nose, Mouth, and Throat: Denies dizziness, Denies headache(s), Denies nasal congestion and Denies sore throat Cardiovascular Cardiovascular: Denies chest pain, Denies dyspnea and Denies leg edema Respiratory Respiratory: Denies cough and Denies dyspnea Gastrointestinal Gastrointestingal: Reports abdominal pain, nausea and vomiting; Denies constipation or diarrhea Genitourinary Male Genitourinary: Denies difficulty urinating Musculoskeletal Musculoskeletal: Denies arthralgias, Denies myalgias, Denies numbness and Denies tingling Integumentary/Breasts Skin/Breast: Denies change in pigmentation Neurologic Neurologic: Denies dizziness, Denies headache(s), Denies numbness, Denies tingling and Denies weakness Physical Exam General General appearance: alert, in no apparent distress and obese Head Head exam: atraumatic and normocephalic Eye Eye exam: Present PERRL and EOMI ENT ENT exam: Present mucous membranes moist Neck Neck exam: Present normal inspection and full ROM Chest Chest inspection: Present symmetric chest wall rise Respiratory Respiratory exam: Present normal lung sounds bilaterally; Absent respiratory distress, wheezes or stridor Cardiovascular Cardiovascular exam: Present regular rate and normal rhythm Abdominal Exam Abdominal exam: Present soft and tenderness (Epigastric, right lower quadrant); Absent distention, guarding or rebound Extremities Exam Extremities exam: Present full ROM Neurological Exam Neurological exam: Present alert and oriented X3; Absent motor sensory deficit Psychiatric Psychiatric exam: Present normal affect and normal mood Skin Skin exam: Present warm and dry Medical Decision Making Medical Records Medical records reviewed: Yes I reviewed the patient's medical records. MR Comment: Patient was seen after his last ER visit by cardiology. They were anticipating 1 month follow-up. They increased patient's Wegovy and counseled the patient on tobacco cessation. Jonathan Inquiry Pt receiving controlled substance: No Vital Signs: 05/13/24 01:37 05/13/24 07:10 Temperature 97.8 F 98.2 F Temperature Source Oral Oral Pulse Rate 63 Pulse Rate [Right Radial] 83 Respiratory Rate 16 18 Blood Pressure 114/67 Blood Pressure [Right Arm] 103/72 L Blood Pressure Mean [Right Arm] 82 Blood Pressure Source [Right Arm] Automatic Cuff Blood Pressure Position [Right Arm] Supine 02 Sat by Pulse Oximetry 95 Oxygen Delivery Method Room Air Room Air Lab Data Lab Results 05/13/24 01:45: WBC 11.5 H, RBC 4.34 L, Hgb 13.2 L, Hct 38.8 L, MCV 89.6, MCH 30.4, MCHC 33.9, RDW 14.2, Plt Count 274, MPV 7.6, Neut % (Auto) 62.6, Lymph % (Auto) 26.8, [place] % (Auto) 4.7, Eos % (Auto) 5.3, Baso % (Auto) 0.6, Neut # (Auto) 7.2, Lymph # (Auto) 3.1, [place] # (Auto) 0.6, Eos # (Auto) 0.6 H, Baso # (Auto) 0.1, PT 10.1, INR 0.89 L, Sodium 138, Potassium 3.6, Chloride 107, Carbon Dioxide 24, Anion Gap 10.6, BUN 11, Creatinine 1.20, Estimated Creat Clear 79, Estimated GFR 64, Est GFR ( Amer) 78, Glucose 120 H, Lactate 1.2, Calcium 9.0, Total Bilirubin 0.3, AST 23, ALT 21, Alkaline Phosphatase 75, Total Creatine Kinase 106, CK-MB (CK-2) 0.5, CK-MB (CK-2) Rel Index 0.5, Troponin I < 0.01, Total Protein 6.9, Albumin 3.8, Globulin 3.1, Albumin/Globulin Ratio 1.2, Lipase 60 05/13/24 01:45 05/13/24 01:45 Orders (Tests/Meds): ED MEDICATIONS Discontinued Medications Generic Name Dose Route Start Last Admin Trade Name Freq PRN Reason Stop Dose Admin Belladonna Alkaloids 60 ml 05/13/24 02:23 05/13/24 02:47 Belladonna Alkaloids 60 Ml Ml PO 05/13/24 02:24 60 ml ONCE ONE Administration Lactated Ringer's 1,000 mls @ 999 mls/hr 05/13/24 02:23 05/13/24 02:46 Lactated Ringer's 1000 Ml Bag IV 05/13/24 03:23 999 mls/hr .Q1H1M ONE Administration Lactated Ringer's 1,000 mls @ 999 mls/hr 05/13/24 05:31 05/13/24 05:39 Lactated Ringer's 1000 Ml Bag IV 05/13/24 06:31 999 mls/hr .Q1H1M ONE Administration Iopamidol 75 ml 05/13/24 03:09 05/13/24 03:10 Iopamidol-370 (76%);100ml Bottle IV 05/13/24 03:10 75 ml ONCE ONE Administration Ondansetron HCl 4 mg 05/13/24 02:23 05/13/24 02:46 Ondansetron 4mg/2ml Vial IV 05/13/24 02:24 4 mg ONCE ONE Administration Sodium Chloride 10 ml 05/13/24 03:09 05/13/24 03:10 Sodium Chloride 0.9% 10ml Syr (Rad Only) IV 06/12/24 03:08 10 ml NEEDED PRN Administration Maintain IV Site Sucralfate 1 gm 05/13/24 04:30 05/13/24 05:32 Sucralfate 1gm/10ml Susp Udc PO 05/13/24 04:31 1 gm ONCE ONE Administration ORDERS Category Date Time Status CT abdomen pelvis w con Stat Cat Scan 05/13/24 02:24 Completed Cardiac Enzymes Stat Lab 05/13/24 01:45 Completed Complete Blood Count Auto Diff Stat Lab 05/13/24 01:45 Completed Comprehensive Metabolic Panel Stat Lab 05/13/24 01:45 Completed Lactic Acid Stat Lab 05/13/24 01:45 Completed Lipase Stat Lab 05/13/24 01:45 Completed Prothrombin Time INR Stat Lab 05/13/24 01:45 Completed Medical Decision Narrative: In summary, this 49-year-old male presents to the emergency department today with abdominal pain, nausea, vomiting. On initial evaluation patient is hemodynamically stable, afebrile, tenderness to palpation of the epigastric and right lower quadrant regions without rebound or guarding, nonacute abdomen, cardiopulmonary exam reassuring. Differential diagnosis includes but is not limited to esophageal spasm, viral syndrome, electrolyte abnormality, pancreatitis, I considered the possibility of ACS though I have lower suspicion for this. Based on these concerns, I ordered cardiac workup, CT abdomen pelvis, serum labs. ECG personally interpreted demonstrates first-degree AV block, sinus rhythm, rate 75, normal axis, no STEMI though there are Q waves in the inferior leads, similar to previous ECG from April. Patient received IV fluids, Zofran for treatment. Labs personally reviewed demonstrate mild leukocytosis similar to prior, anemia similar to prior, PT/INR nonactionable, no findings of kidney or liver dysfunction on CMP, initial troponin undetectably low at less than 0.01, lipase normal at [address] abdomen pelvis personally interpreted does not demonstrate any new acute intra-abdominal pathology. See radiology read for final interpretation. Patient complained of Heartburn. He has received GI cocktail and Carafate. On reassessment, patient has ambulated in the ER. He is also eat and drink multiple times in the ER, tolerating oral intake. At this time I believe he is appropriate for discharge. I prescribed sucralfate for outpatient management. Patient was given instructions on symptomatic management, follow up instructions, and return precautions for the emergency department. Patient indicated understanding and was discharged in stable condition. Critical Care Critical Care Time Critical Care Time: No
[2024-05-13 02:37] LABS: Basophils # 0.1 K/mm3 (0-0.2); Basophils % 0.6 % (0.1-2.0); Eosinophils # 0.6 K/mm3 (0.0-0.4); Eosinophils % 5.3 % (0.1-12.0); Hematocrit 38.8 % (42.0-52.0); Hemoglobin 13.2 g/dL (14.1-18.0); Lymphocytes # 3.1 K/mm3 (0.7-4.5); Lymphocytes % 26.8 % (10-50); Mean Corpuscular HGB Conc 33.9 g/dL (31.8-35.4); Mean Corpuscular Hemoglobin 30.4 pg (27.0-31.2); Mean Corpuscular Volume 89.6 fl (80-94); Mean Platelet Volume 7.6 fl (7.4-10.4); Monocytes # 0.6 K/mm3 (0.1-1.0); Monocytes % 4.7 % (1.7-9.3); Neutrophils # 7.2 K/mm3 (1.8-7.8); Neutrophils % 62.6 % (37.0-80.0); Platelet Count 274 K/mm3 (142-424); Red Blood Count 4.34 M/mm3 (4.60-6.20); Red Cell Distribution Width 14.2 % (11.5-17.5); White Blood Count 11.5 K/mm3 (4.8-10.8)
[2024-05-13 02:42] LABS: INR 0.89 (0.9-1.1); Prothrombin Time 10.1 seconds (10.1-12.5)
[2024-05-13 02:44] LABS: Creatine Kinase 106 U/L (55-170); Lipase 60 U/L (23-300)
[2024-05-13 02:45] LABS: Alanine Aminotransferase 21 U/L (12-78); Albumin Level 3.8 g/dl (3.5-5.0); Albumin/Globulin Ratio 1.2 (1.1-1.8); Alkaline Phosphatase 75 U/L (38-126); Anion Gap 10.6 mEq/L (5-15); Aspartate Amino Transferase 23 U/L (17-59); Bilirubin,Total 0.3 mg/dl (0.2-1.3); Blood Urea Nitrogen 11 mg/dl (9-20); Carbon Dioxide 24 mmol/L (22.0-30.0); Chloride 107 mmol/L (98-107); Creatinine Clearance Estimated 79 mL/min (50-200); Estimated Glomerular Filt Rate 64 ml/min (>60); GFR (African American) 78 ML/MIN (>60); Globulin 3.1 g/dL (1.3-3.2); Glucose 120 mg/dl (74-100); Lactic Acid 1.2 mmol/L (0.7-2.1); Potassium 3.6 mmoL/L (3.5-5.1); Sodium 138 mmol/L (136-145); Total Protein,Serum 6.9 g/dl (6.3-8.2)
[2024-05-13] MEDS: LACTATED RINGERS 1000ML 1,000 ML 999 ML IV ×2 (02:46→05:39)
[2024-05-13] MEDS: ONDANSETRON 4MG/2ML VIAL 4 MG IV (02:46)
[2024-05-13] MEDS: BELLADONNA ALKALOIDS 60 ML ML PO (02:47)
[2024-05-13 02:57] LABS: CKMB Relative Index 0.5 U/L (0-4.0); Creatine Kinase MB 0.5 ng/ml (0.0-2.03)
[2024-05-13 03:00] LABS: Troponin I < 0.01 ng/ml (0.00-0.034)
[2024-05-13] MEDS: SODIUM CHLORIDE 0.9% 10ML SYR (RAD ONLY) 10 ML IV (03:10)
[2024-05-13] MEDS: IOPAMIDOL-370 (76%);100ML BOTTLE 75 ML IV (03:10)
--- NOTE | 2024-05-13 03:14 | ECG_ITS ---
APPROVED REPORT Exam: Resting ECG HR:75 bpm ECG Measurements Heart Rate 75 AXES MN 228 P 64 QRSd 100 QRS 39 QT 405 T 37 QTc 434 Conclusion SINUS RHYTHM WITH FIRST DEGREE AV BLOCK LOW QRS VOLTAGE IN PRECORDIAL LEADS [QRS DEFLECTION < 1.0 mV IN CHEST LEADS] Q waves in inferior leads, stable from prior, no STEMI Electronically signed by : EDELMIRA NEVES, 05/13/2024 07:54:44
[2024-05-13] MEDS: SUCRALFATE 1GM/10ML SUSP UDC 1 GM PO (05:32)
--- NOTE | 2024-05-13 06:09 | PC.NURSE ---
Pt called out stating he would like to leave against medical advice, dr leon aware
[2024-05-13 07:10] VITALS: BP 114/67; PULSE 63; RESP 18; TEMP 36.8; O2SAT 94
== END 2024-05-13 07:15 | disposition home or self-care (01) ==
PROVIDERS: Emergency Provider Emergency Medicine; PCP Family Medicine
DX: R10.13 Epigastric pain (principal); R11.2 Nausea with vomiting, unspecified; F17.210 Nicotine dependence, cigarettes, uncomplicated; I44.0 Atrioventricular block, first degree; I11.0 Hypertensive heart disease with heart failure; I50.9 Heart failure, unspecified; J44.9 Chronic obstructive pulmonary disease, unspecified; K21.9 Gastro-esophageal reflux disease without esophagitis; E78.5 Hyperlipidemia, unspecified; E66.01 Morbid (severe) obesity due to excess calories; Z68.41 Body mass index [BMI] 40.0-44.9, adult
CPT/HCPCS: 74177; 80053; 82550; 82553; 83605; 83690; 84484; 85025; 85610; 93005; 96361; 96374; 99284; J2405; J7120; Q9967

== ENCOUNTER 2024-08-06 13:23 | Emergency (ER) | payer MEDICARE, OTHER, SELFPAY ==
[2024-08-06 13:35] VITALS: BP 115/80; PULSE 109; RESP 24; TEMP 36.6; O2SAT 96; BMI 42.9
--- NOTE | 2024-08-06 14:01 | ED_ITS ---
Discharge Plan Disposition Patient Disposition: Home, Self-Care Condition: Good Prescriptions Prescriptions: New lidocaine 5 % adhesive patch,medicated 1 patch topical DAILY PRN (Reason: pain) Qty: 15 0RF Rx Instructions: leave on most painful area for up to 12 hrs then remove patch and leave off for 12 hours methylprednisolone [Medrol (Chinedu)] 4 mg tablets,dose pack See Rx Instructions .Route .COMPLEX 6 Days Qty: 21 0RF Rx Instructions: taper pack; No Action aspirin 81 mg tablet,chewable 81 mg PO DAILY Qty: 90 2RF fluticasone propionate 50 mcg/actuation spray,suspension 2 spray INTRANASAL DAILY Qty: 9.9 2RF isosorbide mononitrate 30 mg tablet extended release 24 hr 30 mg PO DAILY Qty: 90 3RF varenicline [Chantix Continuing Month Box] 1 mg tablet 1 mg PO BID 84 Days Qty: 168 3RF albuterol sulfate 90 mcg/actuation HFA aerosol inhaler See Rx Instructions .ROUTE .COMPLEX Qty: 9 5RF Dose Instruction: INHALE 2 PUFFS BY MOUTH EVERY 6 HOURS NEEDED FOR SHORTNESS OF BREATH AND FOR WHEEZING Rx Instructions: INHALE 2 PUFFS BY MOUTH EVERY 6 HOURS NEEDED FOR SHORTNESS OF BREATH AND FOR WHEEZING furosemide 40 mg tablet 40 mg PO DAILY Qty: 90 3RF metoprolol succinate 25 mg tablet extended release 24 hr 25 mg PO DAILY Qty: 90 3RF atorvastatin 40 mg tablet See Rx Instructions .ROUTE .COMPLEX Qty: 90 3RF Dose Instruction: TAKE 1 TABLET BY MOUTH ONCE DAILY AT BEDTIME FOR HIGH CHOLESTEROL Rx Instructions: TAKE 1 TABLET BY MOUTH ONCE DAILY AT BEDTIME FOR HIGH CHOLESTEROL Ingrezza 40 mg capsule 40 mg PO DAILY Qty: 30 3RF Wegovy 1 mg/0.5 mL pen injector 1 mg SQ WEEKLY Qty: 2 1RF Rx Instructions: administer weeks 9 through 12 of therapy nitroglycerin 0.4 mg tablet, sublingual See Rx Instructions .ROUTE .COMPLEX Qty: 25 3RF Dose Instruction: DISSOLVE ONE TABLET UNDER THE TONGUE EVERY 5 MINUTES NEEDED FOR CHEST PAIN. DO NOT EXCEED A TOTAL OF 3 DOSES IN 15 MINUTES Rx Instructions: DISSOLVE ONE TABLET UNDER THE TONGUE EVERY 5 MINUTES NEEDED FOR CHEST PAIN. DO NOT EXCEED A TOTAL OF 3 DOSES IN 15 MINUTES fluoxetine 40 mg capsule See Rx Instructions .ROUTE .COMPLEX Qty: 90 2RF Dose Instruction: TAKE 1 CAPSULE BY MOUTH ONCE DAILY FOR ANXIETY Rx Instructions: TAKE 1 CAPSULE BY MOUTH ONCE DAILY FOR ANXIETY trazodone 100 mg tablet See Rx Instructions .ROUTE .COMPLEX Qty: 30 0RF Dose Instruction: TAKE 1 TABLET BY MOUTH EVERY DAY AT BEDTIME NEEDED FOR INSOMNIA Rx Instructions: TAKE 1 TABLET BY MOUTH EVERY DAY AT BEDTIME NEEDED FOR INSOMNIA gabapentin 300 mg capsule 300 mg PO TID Qty: 90 1RF risperidone 1 mg tablet See Rx Instructions .ROUTE .COMPLEX Qty: 60 0RF Dose Instruction: TAKE 1 TABLET BY MOUTH TWICE DAILY FOR ANXIETY Rx Instructions: TAKE 1 TABLET BY MOUTH TWICE DAILY FOR ANXIETY cyclobenzaprine 10 mg tablet 10 mg PO TID Qty: 90 1RF montelukast 10 mg tablet 10 mg PO DAILY fluticasone furoate-vilanterol [Breo Ellipta] 200-25 mcg/dose blister with device 1 inh inhalation DAILY gabapentin 300 mg capsule 300 mg PO DAILY Patient Comments: TAKE 1 CAPSULE BY MOUTH THREE TIMES DAILY furosemide 40 mg tablet 40 mg PO DAILY Patient Comments: TAKE 1 & 1/2 (ONE & ONE-HALF) TABLETS BY MOUTH ONCE DAILY FOR CARDIAC atorvastatin 40 mg tablet 40 mg PO DAILY Patient Comments: TAKE 1 TABLET BY MOUTH ONCE DAILY AT BEDTIME FOR HIGH CHOLESTEROL sucralfate 1 gram tablet 1 g PO DAILY Patient Comments: TAKE 1 TABLET BY MOUTH THREE TIMES DAILY FOR 2 WEEKS metoprolol succinate 25 mg tablet extended release 24 hr 25 mg PO DAILY Patient Comments: TAKE 1 TABLET BY MOUTH TWICE DAILY FOR HIGH BLOOD PRESSURE Ingrezza 40 mg capsule 40 mg PO DAILY Referrals Follow up/Referrals: Carlos Voss MD [Primary Care Provider] - See instructions Activity Restrictions/Add. Instructions Additional Instructions/Restrictions: *Ibuprofen jerardo 6 hours with meal as needed for pain/inflammation if you can take it if you cant take Tylenol *Not additional anti-inflammatory like motrin, aleve, advil with the above amount of ibuprofen. You can still take Tylenol every 4 hours as needed if you need something else for pain *Ice 20 minutes every 2 hours for the first 48 hours after the initial injury followed by moist heat every 20 minutes 3-4 times a day to affected area *Muscle relaxer every 8 hours as needed for muscle spasms but remember, it WILL cause drowsiness You cannot take it and drive, operate machinery or care for small children. Use lidoacine patch as directed, place on most painful area leave on for 12 hours then remove for 12 hours *Keep this area active, no movement leads to more stiffness, However take it easy and avoid heavy lifting pushing or pulling *Follow up with you family doctor if no improvement for further treatment Clinical Impressions Clinical Impression: Muscle spasm Instructions Patient Instructions: DI for Muscle Spasm, Lidocaine Transdermal Patch Print Language Print Language: Guinean Discharge ED Provider: Yadi Lynch [facility] [place], [place] HPI General Stated complaint: left shoulder pain Mode of Arrival: Ambulatory Source of Information: Patient Time Seen by Provider: 08/06/24 14:01 Description of Symptoms (Recalled from Triage Doc. 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 and not sure if he pulled something or what States he feels like he has muscle tightness in his left shoulder area and it feels tight and when he moves it it causes pain to shoot into his arm States at night it doesnt bother him much but when it is cold out the pain is worse not sure if he pulled something or having issues with arthritis Denies chest pain Denies pain radiating in neck or jaw area states pain is worse with movement Related Data Home Medications ?Medication ?Instructions ?Recorded ?Confirmed fluticasone furoate 200 1 inh inhalation DAILY breathing 01/31/23 06/05/24 mcg-vilanterol 25 mcg/dose inhalation powder (Breo Ellipta) montelukast 10 mg tablet 10 mg PO DAILY allergies 01/31/23 06/05/24 atorvastatin 40 mg tablet 40 mg PO DAILY 08/06/24 08/06/24 furosemide 40 mg tablet 40 mg PO DAILY 08/06/24 08/06/24 gabapentin 300 mg capsule 300 mg PO DAILY 08/06/24 08/06/24 metoprolol succinate 25 mg 25 mg PO DAILY 08/06/24 08/06/24 tablet,extended release 24 hr sucralfate 1 gram tablet 1 g PO DAILY 08/06/24 08/06/24 valbenazine 40 mg capsule 40 mg PO DAILY 08/06/24 08/06/24 (Ingrezza) Previous Rx's ?Medication ?Instructions ?Recorded aspirin 81 mg chewable tablet 81 mg PO DAILY Heart disease #90 04/25/22 tabs fluticasone propionate 50 2 spray intranasal DAILY allergies 04/27/23 mcg/actuation nasal #9.9 mL spray,suspension isosorbide mononitrate 30 mg 30 mg PO DAILY #90 tabs 01/17/24 tablet,extended release 24 hr varenicline 1 mg tablet (Chantix 1 mg PO BID 12 weeks #168 tabs 01/17/24 Continuing Month Box) albuterol sulfate 90 mcg/actuation See Rx Instructions .Route 02/19/24 aerosol inhaler .COMPLEX #9 grams atorvastatin 40 mg tablet See Rx Instructions .Route 03/14/24 .COMPLEX #90 tabs valbenazine 40 mg capsule 40 mg PO DAILY #30 caps 04/22/24 (Ingrezza) furosemide 40 mg tablet 40 mg PO DAILY #90 tabs 06/05/24 metoprolol succinate 25 mg 25 mg PO DAILY High blood pressure 06/05/24 tablet,extended release 24 hr #90 tabs semaglutide (weight loss) 1 mg/0.5 1 mg (0.5 mL) SQ WEEKLY #2 mL 06/06/24 mL subcutaneous pen injector (Thee) nitroglycerin 0.4 mg sublingual See Rx Instructions .Route 06/10/24 tablet .COMPLEX #25 tabs fluoxetine 40 mg capsule See Rx Instructions .Route 07/10/24 .COMPLEX #90 caps trazodone 100 mg tablet See Rx Instructions .Route 07/21/24 .COMPLEX #30 tabs gabapentin 300 mg capsule 300 mg PO TID #90 caps 07/23/24 risperidone 1 mg tablet See Rx Instructions .Route 07/28/24 .COMPLEX #60 tabs cyclobenzaprine 10 mg tablet 10 mg PO TID #90 tabs 07/29/24 lidocaine 5 % topical patch 1 patch topical DAILY PRN pain #15 08/06/24 ea methylprednisolone 4 mg tablets in See Rx Instructions .Route 08/06/24 a dose pack (Medrol (Chinedu)) .COMPLEX 6 days #21 tabs Allergies Allergy/AdvReac Type Severity Reaction Status Date / Time No Known Allergies Allergy Verified 06/05/24 10:09 Worker's Comp Is this a Worker's Comp case?: No [facility] Disclaimer: The information contained in this section may have been updated after the patient was seen, as this information can be updated by other users. Medical History [place] esophagus Colonic polyp Testicular microlithiasis Low back pain Low back pain radiating to both legs CHF (congestive heart failure) HTN (hypertension) COPD (chronic obstructive pulmonary disease) Sleep apnea Asthma Tardive dyskinesia Stopped smoking with greater than 20 pack year history Allergic rhinitis Dyspnea on exertion Major depressive disorder COVID-19 Moderate persistent asthma Allergic rhinitis, unspecified Stopped smoking with greater than 15 pack year history Tobacco abuse disorder Dyspnea on exertion Encounter for pre-operative cardiovascular clearance Chest pain Hypokalemia COVID-19 virus infection Edema Renal insufficiency Dyspnea Morbid obesity due to excess calories History of hyperlipidemia HARSH (obstructive sleep apnea) CAD (coronary artery disease), [place] coronary artery GERD (gastroesophageal reflux disease) Ex-smoker Obesity (BMI 30-39.9) Back pain Anxiety Surgical History History of surgery cyst on back removed History of colonoscopy History of cardiac cath History of appendectomy Family History Other Coronary artery disease Diabetes Hyperlipidemia Hypertension Social History Smoking Status: Current every day smoker tobacco type: cigarettes packs per day: 1 second hand exposure: No alcohol intake: never substance use type: denies use current occupational status: disabled Travel in the last 8 weeks: None household members: spouse housing: house lives independently: No marital status: number of children: 0 current occupational exposures/hazards: No caffeine: Yes do you feel safe at home: Yes victim of physical abuse: No victim of emotional abuse: No victim of sexual abuse: No would you like helpful sources: No ROS Obtained: Yes All systems reviewed & no additional complaints except as documented and Yes Systems reviewed as appropriate & no additional complaints except as documented Constitutional Constitutional: Reports system reviewed and no additional complaints, except as documented and Reports as per HPI ENT Ears, Nose, Mouth, and Throat: Reports system reviewed and no additional complaints, except as documented and Reports as per HPI Cardiovascular Cardiovascular: Reports system reviewed and no additional complaints, except as documented, Reports as per HPI, Denies chest pain, Denies dyspnea, Denies dyspnea on exertion, Denies edema, Denies leg edema and Denies lightheadedness Respiratory Respiratory: Reports system reviewed and no additional complaints, except as documented, Reports as per HPI, Denies dyspnea and Denies dyspnea on exertion Gastrointestinal Gastrointestingal: Reports system reviewed and no additional complaints, except as documented and as per HPI Musculoskeletal Musculoskeletal: Reports system reviewed and no additional complaints, except as documented, Reports as per HPI and Reports other Comments: pain in left shoulder area worse with movement Physical Exam General General appearance: alert and in no apparent distress ENT ENT exam: Present mucous membranes moist Chest Chest inspection: Present normal inspection and symmetric chest wall rise Respiratory Respiratory exam: Present normal lung sounds bilaterally; Absent respiratory distress or wheezes Cardiovascular Cardiovascular exam: Present regular rate, normal rhythm and tachycardia Back Exam Back exam: Present tenderness and muscle spasm Back 1 view image: 2 1. reports tightness, pain with movement and achy like spasm pain x 3 weeks Denies known injury but does reports does alot of heavy lifting and lifting his animals Denies chest pain Neurological Exam Neurological exam: Present alert, oriented X3 and normal gait Medical Decision Making Medical Records Screening: Per USPSTF and CDC recommendations, given the prevalence of disease in our region, it is our hospital?s policy to screen for HIV and viral Hepatitis for all patients aged 18 and over and those with ongoing risk factors. Jonathan Inquiry Pt receiving controlled substance: No Jonathan was queried for this patient: No Vital Signs: 08/06/24 13:35 Temperature 97.8 F Temperature Source Axillary Pulse Rate [Left Radial] 109 H Respiratory Rate 24 Blood Pressure [Left Arm] 115/80 Blood Pressure Mean [Left Arm] 91 02 Sat by Pulse Oximetry 96 Radiology Data #1: Image(s): Shoulder Image Reviewed: Yes I have reviewed radiologist's interpretation IMPRESSION: No acute findings in the left shoulder. Medical Decision Narrative: Discussed with patient about transfer to the ED for furhter work up and evaluation to R/O cardiac due to extensive hx and he declined States hurts worse with movement it wasnt his heart, again discussed with patient that the only way to make sure is EKG and work up and he declined states wants an xray and he sees his PCP next week Xray back again spoke with patient about transfer to the ED for more extensive Cardiac work up and again he declined States he will follow up with PCP if it doesnt get better patient aware of risks and still declined transfer States he has taken Medrol in the past without complications
--- NOTE | 2024-08-06 14:10 | XR_ITS ---
PROCEDURE INFORMATION: Exam: XR Left Shoulder Exam date and time: 08/06/2024 2:24 PM Age: 49 years old Clinical indication: Pain; Shoulder; Left; Patient HX: Vernoni; Additional info: Pain with movement TECHNIQUE: Imaging protocol: Radiologic exam of the left shoulder. Views: 2 or more views. COMPARISON: CR XR CHEST PORTABLE 06/05/2023 10:21 PM FINDINGS: Bones/joints: No fractures or bone lesions. No dislocations. Soft tissues: No soft tissue abnormalities or radiopaque foreign bodies. No soft tissue gas. IMPRESSION: No acute findings in the left shoulder.
[2024-08-06 15:24] VITALS: BP 115/80; PULSE 109; RESP 24; TEMP 36.6
== END 2024-08-06 15:24 | disposition home or self-care (01) ==
PROVIDERS: Emergency Provider Nurse Practitioner; PCP Family Medicine
DX: M62.838 Other muscle spasm (principal); M25.512 Pain in left shoulder; X50.0XXA Overexertion from strenuous movement or load, initial encounter; Y93.89 Activity, other specified; Y92.9 Unspecified place or not applicable
CPT/HCPCS: 73030; 99212; G0381

== ENCOUNTER 2024-08-12 11:19 | Outpatient (CLI) | payer MEDICARE, OTHER, SELFPAY ==
[2024-08-12 18:37] LABS: Alanine Aminotransferase 19 U/L (12-78); Albumin/Globulin Ratio 1.6 (1.1-1.8); Alkaline Phosphatase 62 U/L (38-126); Anion Gap 11.8 mEq/L (5-15); Aspartate Amino Transferase 17 U/L (17-59); Bilirubin,Total 0.5 mg/dl (0.2-1.3); Blood Urea Nitrogen 13 mg/dl (9-20); Carbon Dioxide 24 mmol/L (22.0-30.0); Chloride 106 mmol/L (98-107); Chol/HDL Ratio 2.7 (1-3.5); Cholesterol 92 mg/dl (140-200); Estimated Glomerular Filt Rate 71 ml/min (>60); GFR (African American) 86 ML/MIN (>60); Globulin 2.5 g/dL (1.3-3.2); Glucose 85 mg/dl (74-100); HDL Cholesterol 34 mg/dl (40-60); Potassium 3.8 mmoL/L (3.5-5.1); Sodium 138 mmol/L (136-145); Total Protein,Serum 6.5 g/dl (6.3-8.2); Triglycerides 116 mg/dl (30-150); VLDL Cholesterol 23 mg/dL (0-40)
[2024-08-12 18:48] LABS: Direct LDL Cholesterol 48.21 mg/dL (100-129)
== END 2024-08-12 23:59 | disposition home or self-care (01) ==
LOC: LAB.DROPOF 08-13 09:38
PROVIDERS: PCP Family Medicine; Visit Provider Family Medicine
DX: I10 Essential (primary) hypertension (principal); E78.5 Hyperlipidemia, unspecified
CPT/HCPCS: 80053; 80061

== ENCOUNTER 2024-08-13 13:49 | Outpatient (CLI) | payer MEDICARE, OTHER, SELFPAY ==
--- NOTE | 2024-08-13 13:52 | XR_ITS ---
FINAL REPORT CLINICAL HISTORY: neck pain COMPARISON: None FINDINGS: Three views of the cervical spine were obtained. There is no fracture present. There is no malalignment. There is mild and moderate degenerative change. Kyphosis is noted at C3-4. IMPRESSION: Degenerative changes without acute process. Reviewed, Interpreted and Dictated by Karlos Foss III, MD Transcribed by Shelbi Nunn Authenticated and [facility]
== END 2024-08-13 23:59 | disposition home or self-care (01) ==
LOC: RAD 13:50
PROVIDERS: PCP Family Medicine; Visit Provider Family Medicine
DX: M54.2 Cervicalgia (principal); M54.10 Radiculopathy, site unspecified
CPT/HCPCS: 72040

== ENCOUNTER 2024-08-15 21:53 | Outpatient (CLI) | payer MEDICARE, OTHER, SELFPAY ==
[2024-08-15 22:18] LABS: Basophils # 0.1 K/mm3 (0-0.2); Basophils % 0.7 % (0.1-2.0); Eosinophils # 0.4 K/mm3 (0.0-0.4); Eosinophils % 3.6 % (0.1-12.0); Hematocrit 43.8 % (42.0-52.0); Hemoglobin 14.5 g/dL (14.1-18.0); Lymphocytes # 2.4 K/mm3 (0.7-4.5); Lymphocytes % 20.1 % (10-50); Mean Corpuscular HGB Conc 33.1 g/dL (31.8-35.4); Mean Corpuscular Hemoglobin 29.8 pg (27.0-31.2); Mean Corpuscular Volume 90.1 fl (80-94); Mean Platelet Volume 8.6 fl (7.4-10.4); Monocytes # 0.3 K/mm3 (0.1-1.0); Monocytes % 2.9 % (1.7-9.3); Neutrophils # 8.5 K/mm3 (1.8-7.8); Neutrophils % 72.7 % (37.0-80.0); Platelet Count 301 K/mm3 (142-424); Red Blood Count 4.86 M/mm3 (4.60-6.20); Red Cell Distribution Width 14.4 % (11.5-17.5); White Blood Count 11.7 K/mm3 (4.8-10.8)
[2024-08-15 22:49] LABS: Hemoglobin A1C 5.1 % (4.0-6.0)
== END 2024-08-15 23:59 | disposition home or self-care (01) ==
LOC: LAB 21:54
PROVIDERS: PCP Family Medicine; Visit Provider Family Medicine
DX: I25.10 Atherosclerotic heart disease of native coronary artery without angina pectoris (principal); R73.9 Hyperglycemia, unspecified; E87.6 Hypokalemia; I10 Essential (primary) hypertension; E78.2 Mixed hyperlipidemia
CPT/HCPCS: 83036; 85025

== ENCOUNTER 2024-09-09 11:00 | Outpatient (RCR) | payer MEDICARE, OTHER, SELFPAY ==
--- NOTE | 2024-08-21 11:40 | HMH.PTOPEV ---
PT Outpatient Evaluation Rehab PT Outpatient Evaluation Start: 08/19/24 10:22 Freq: Status: Active Protocol: Document 08/19/24 10:22 SONDRA (Rec: 08/19/24 10:39 SONDRA Laptop) E-signed By Tan Breaux, PT Outpatient Therapy Subjective History Subjective History Pt is a 49 yom who presents to Physical Therapy for his initial evaluation. The patient reports he has been dealing with left sided neck pain that radiates down to his left arm and hand. The pain is of insidious onset and has been ongoing for approximately 2 months. 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 He also reports that he has quite a bit of pain driving. He reports that the pain has gotten worse recently. New diagnosis of cancer in past 12 No months? Chief Complaint Pain,Spasms,Stiff Symptom Type Ache Symptoms Relieved By Heat,Prescription Meds Symptoms Aggravated By Prone,Supine,Lifting Prior Functional Limitations None Current Functional Limitations Reaching,Housework,Dressing, Driving Level of pain today (0-10) 8 Pain scale - at its best (0-10) 8 Pain scale - at its worst (0-10) 10 Cervical Eval Palpation Cervical Muscles L Cervical Paraspinal,L Suboccipital,L CT Junction,L Thoracic Paraspinals Cervical/Thoracic Palpation Findings Tenderness Posture Head/C-Spine Posture Sitting Position Flexed Head/C-Spine Posture Standing Position Flexed Flexibility Deficits Upper Trapezius Muscle Length (R) Moderate Tightness,(L) Moderate Tightness Passive Joint Mobility Cervical PIVM Dec: L C3/4 L C4/5 L C5/6 L C6/7 L C7/T1 WNL: R OA L OA R AA L AA R C2/3 L C2/3 R C3/4 R C4/5 R C5/6 R C6/7 R C7/T1 AROM Cervical Spine Extension Active Range of 14 Motion (degrees) Cervical Spine Flexion Active Range of 35 Motion (degrees) Cervical Spine Right Lateral Flexion 30 Active Range of Motion (degrees) Cervical Spine Left Lateral Flexion 12 Active Range of Motion (degrees) Cervical Spine Right Rotation Active 35 Range of Motion (degrees) Cervical Spine Left Rotation Active 15 Range of Motion (degrees) MMT Left Deltoid (C5) 3+ Fair+ Biceps Brachii Strength Grade 3+ Fair+ Wrist Extension Strength Grade 5 Normal Triceps Brachii Strength Grade 3+ Fair+ Wrist Flexion Strength Grade 5 Normal Extensor Pollicis Longus Strength Grade 5 Normal Finger Abduction Strength Grade 5 Normal Right Deltoid (C5) 5 Normal Biceps Brachii Strength Grade 5 Normal Wrist Extension Strength Grade 5 Normal Triceps Brachii Strength Grade 5 Normal Wrist Flexion Strength Grade 5 Normal Extensor Pollicis Longus Strength Grade 5 Normal Finger Abduction Strength Grade 5 Normal DTR Rt Biceps 2+ Lt Biceps 2+ Rt Brachioradialis 2+ Lt Brachioradialis 2+ Rt Triceps 2+ Lt Triceps 2+ Altered Sensation Left Upper extremity Dermatomes C5,C6 Comment Hyposensation at C5-C6 on L Special Test C-Spine Foraminal Compression (Spurling) Negative Right,Positive Left Test C-spine Verterbral Accessory Movements Left P/A [place] that Elicit Symptoms C-Spine Foraminal Distraction Test Positive C-Spine Compression Test Negative Left,Negative Right Neck Disability Index Neck Disability Index Section 1: Pain Intensity The pain is very mild at moment Section 2: Personal Care (washing, It is painful to look after dressing, etc.) myself and I am slow and careful Section 3: Lifting Pain prevents me lifting heavy weights off the floor, but I can manage Section 4: Reading I can read as much as I want to with no pain in my neck Section 5: Headaches I have no headaches at all Section 6: Concentration I can concentrate fully when I want to with no difficulty Section 7: Work I can do most of my usual work , but no more Section 8: Driving I can drive my car as long as I want with moderate pain in my neck Section 9: Sleeping I have no trouble sleeping Section 10: Recreation I am able to engage in most, but not all of my usual recreation NDI Score 11 Miscellaneous Dx PT Eval Objective Objective Forward Head Posture ULTT: Median Nerve: + on L - on R Ulnar Nerve: + on L - on R Radial Nerve: - on L - on R Outpatient Therapy Assessment Impairments Problems/Impairmments Palpation Tenderness,Impaired Range of Motion,Impaired Driving,Impaired Lifting, Impaired Household Care, Impaired Recreational Activities,Subjective C/O Pain Prognosis Rehab Potential Fair Comment The patient demonstrates impairments in cervical ROM, a positive spurling's and a positive cervical distraction. The patient also demonstrates hypomobility in his lower cervical spine and upper thoracic spine. These signs and symptoms are consistent with neck pain with radiating pain. The patient would benefit from skilled PT including manual therapy, and exercises to promote a return to his prior level of function and to address his current impairments. Clinical Impression Consistent with Diagnosis Yes Short Term Goals Number of Weeks 4 Decreased Palpation Tenderness Yes: 1/4 Increase Range of Motion Yes: 75% WNL Increase Strength Yes: 4/5 to Biceps, Triceps and Deltoid Increase Ability to Drive/Ride in Car Yes: 4/10 pain Improve Tolerance to Work Activities Yes: Lift 10 pounds from floor with 4/10 pain in neck Improve Neck Disability Index Score Yes: to 6 Decrease Subjective C/O Pain Yes: 5/10 at worst Patient to be Ind w/ HEP Yes Senior Care Goals Number of Weeks 8 Decreased Palpation Tenderness Yes: 0/4 Increase Range of Motion Yes: WNL Increase Strength Yes: 5/5 to biceps, triceps and deltoid Improve Tolerance to Work Activities Yes: Lift 10 pounds from floor with 2/10 pain in neck Improve Neck Disability Index Score Yes: to 1 Decrease Subjective C/O Pain Yes: 3/10 at worst Patient to be Ind w/ Advanced HEP Yes Outpatient Therapy Plan of Care Treatment Plan May Include Therapeutic Exercise Including Home Yes Exercise Program Manual Therapy Techniques Yes Neuromuscular Re-education Yes Therapeutic Activities to Return to Yes Previous Functional/Work Level ADL/Self Care Education Yes Mechanical Traction Yes Thermal Modalities Yes Electrical Stimulation Yes Massage Yes Eval/Re-Eval Yes Aquatic Therapy Yes Frequency Times per week 2-3/week Duration Number of Weeks 8 weeks Addendums This patient is a candidate for social No or vocational rehab? Patient/Guardian verbally acknowledges Yes understanding of treatment program and consents to further treatment? Patient/Guardian verbally acknowledges Yes understanding of diagnosis, prognosis and goals for treatment? Eval Complexity PT Charges 51100 - High Complexity Shoulder/Elbow Eval Shoulder Objective Measurements Elbow Objective Measurements PHYSICIAN CERTIFICATION: I certify the specified therapy services for Maurilio Acuna are required, authorized, and reviewed every 30 days.
== END 2024-09-09 23:59 | disposition home or self-care (01) ==
LOC: PT 11:00
PROVIDERS: PCP Family Medicine; Visit Provider Family Medicine
DX: M54.2 Cervicalgia (principal); M54.12 Radiculopathy, cervical region
CPT/HCPCS: 97110; 97140; 97163; 97530

== ENCOUNTER 2024-09-12 13:35 | Outpatient (POV) | payer MEDICARE, OTHER, SELFPAY ==
[2024-09-12 14:11] VITALS: BP 126/77; PULSE 92; RESP 16; O2SAT 93; BMI 42.9
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
== END 2024-09-12 23:59 | disposition home or self-care (01) ==
LOC: SC.PAIN 13:37
PROVIDERS: PCP Family Medicine; Visit Provider Nurse Practitioner Family
DX: M50.10 Cervical disc disorder with radiculopathy, unspecified cervical region (principal); M51.16 Intervertebral disc disorders with radiculopathy, lumbar region; Z73.89 Other problems related to life management difficulty; F17.210 Nicotine dependence, cigarettes, uncomplicated; Z79.899 Other long term (current) drug therapy
CPT/HCPCS: 99202; G0463

== ENCOUNTER 2024-10-15 10:45 | Outpatient (POV) | payer MEDICARE, OTHER, SELFPAY ==
--- NOTE | 2024-10-15 11:01 | EXP.PAIN.SOA ---
[facility] Disclaimer: The information contained in this section may have been updated after the patient was seen, as this information can be updated by other users. Medical History Tobacco use Radiculopathy affecting upper extremity Neck pain Mcarthur esophagus Colonic polyp Testicular microlithiasis Low back pain Low back pain radiating to both legs CHF (congestive heart failure) HTN (hypertension) COPD (chronic obstructive pulmonary disease) Sleep apnea Asthma Tardive dyskinesia Stopped smoking with greater than 20 pack year history Allergic rhinitis Dyspnea on exertion Major depressive disorder COVID-19 Moderate persistent asthma Allergic rhinitis, unspecified Stopped smoking with greater than 15 pack year history Tobacco abuse disorder Dyspnea on exertion Encounter for pre-operative cardiovascular clearance Chest pain Hypokalemia COVID-19 virus infection Edema Renal insufficiency Dyspnea Morbid obesity due to excess calories History of hyperlipidemia HARSH (obstructive sleep apnea) CAD (coronary artery disease), [place] coronary artery GERD (gastroesophageal reflux disease) Ex-smoker Obesity (BMI 30-39.9) Back pain Anxiety Surgical History History of surgery cyst on back removed History of colonoscopy History of cardiac cath History of appendectomy Family History Other Coronary artery disease Diabetes Hyperlipidemia Hypertension Social History Smoking Status: Current every day smoker tobacco type: cigarettes packs per day: 1 second hand exposure: No alcohol intake: never substance use type: denies use current occupational status: other Travel in the last 8 weeks: None household members: spouse housing: house lives independently: No marital status: number of children: 0 current occupational exposures/hazards: No caffeine: Yes do you feel safe at home: Yes victim of physical abuse: No victim of emotional abuse: No victim of sexual abuse: No would you like helpful sources: No PM Subjective & Objective Subjective Subjective:: Patient is a pleasant 49-year-old male who presents today for 1 month follow-up. Today he rates his pain a 7 out of 10. He denies any new trauma or injury from our last appointment. At the last visit he was sent a compounded cream. He states that it did not really seem to do much of anything. Patient was also discussed regarding possible cervical epidural injections in future. He states that he still would not like to proceed forward with that option. Patient states that he has had multiple injections in the past and they never seem to provide significant relief. Patient does state that he just continues to have the chronic neck and low back symptoms that are daily and that his current medications including gabapentin just do not seem to do anything for him. Patient has continued conservative treatment with no additional improvement. His Jonathan has been reviewed and is appropriate. Review of Systems: General: No recent weight changes, no fever, no sleep disturbances Respiratory: No cough, no shortness of air, no recurring pulmonary infections Cardiovascular/peripheral vascular: No chest pain, no palpitations, no edema, no shortness of breath Gastrointestinal: No new onset incontinence, normal bowel movements reported Genitourinary: No new onset incontinence Musculoskeletal: Neck pain, low back pain Psychiatric: [Normal mood/affect] Neurological: [Denies weakness in extremities], [denies balance issues] Pain at rest (0-10 scale): 7 Objective Objective:: Physical Exam: General: Alert and oriented x3, no acute distress, pleasant and cooperative Lungs: Respirations even and unlabored, symmetrical chest expansion Eyes: PERRL Musculoskeletal: Flexion and extension of lumbar [spine] somewhat guarded secondary to pain, [antalgic gait noted] Neurological: Speech clear, no gross sensory deficit Has patient had previous pain injection?: No Conservative treatment options previously tried: Home exercise plan Length of treatment: Longer than 12 weeks Meds Home Medications and Allergies Home Medications ?Medication ?Instructions ?Recorded ?Confirmed ?Type aspirin 81 mg chewable tablet 81 mg PO DAILY Heart disease #90 04/25/22 10/15/24 Rx tabs fluticasone furoate 200 1 inh inhalation DAILY breathing 01/31/23 10/15/24 History mcg-vilanterol 25 mcg/dose inhalation powder (Breo Ellipta) montelukast 10 mg tablet 10 mg PO DAILY allergies 01/31/23 10/15/24 History fluticasone propionate 50 2 spray intranasal DAILY allergies 04/27/23 10/15/24 Rx mcg/actuation nasal #9.9 mL spray,suspension atorvastatin 40 mg tablet See Rx Instructions .Route 03/14/24 10/15/24 Rx .COMPLEX #90 tabs valbenazine 40 mg capsule 40 mg PO DAILY #30 caps 04/22/24 10/15/24 Rx (Ingrezza) furosemide 40 mg tablet 40 mg PO DAILY 08/06/24 10/15/24 History lidocaine 5 % topical patch 1 patch topical DAILY PRN pain #15 08/06/24 10/15/24 Rx ea sucralfate 1 gram tablet 1 g PO DAILY 08/06/24 10/15/24 History gabapentin 400 mg capsule 400 mg PO TID #90 caps 08/12/24 10/15/24 Rx nicotine 21 mg/24 hr daily 1 patch transdermal DAILY #28 ea 08/12/24 10/15/24 Rx transdermal patch tizanidine 4 mg capsule 4 mg PO Q8H PRN muscle spasticity 08/12/24 10/15/24 Rx #60 caps fluoxetine 40 mg capsule See Rx Instructions .Route 08/18/24 10/15/24 Rx .COMPLEX #90 caps risperidone 3 mg tablet (Risperdal) See Rx Instructions PO BID #30 tabs 08/18/24 10/15/24 Rx semaglutide (weight loss) 1 mg/0.5 1 mg (0.5 mL) SQ WEEKLY #2 mL 08/20/24 10/15/24 Rx mL subcutaneous pen injector (Wegovy) albuterol sulfate 90 mcg/actuation See Rx Instructions .Route 08/26/24 10/15/24 Rx aerosol inhaler .COMPLEX #9 grams nitroglycerin 0.4 mg sublingual See Rx Instructions .Route 09/02/24 10/15/24 Rx tablet .COMPLEX #25 tabs valbenazine 40 mg capsule 40 mg PO DAILY #30 caps 09/03/24 10/15/24 Rx (Ingrezza) semaglutide (weight loss) 1.7 1.7 mg (0.75 mL) SQ WEEKLY #3 mL 09/24/24 10/15/24 Rx mg/0.75 mL subcutaneous pen injector (Wegovy) trazodone 100 mg tablet See Rx Instructions .Route 09/29/24 10/15/24 Rx .COMPLEX #30 tabs New Prescriptions to Start Prescriptions: Allergies Allergy/AdvReac Type Severity Reaction Status Date / Time No Known Allergies Allergy Verified 09/02/24 08:37 Assessment and Plan *Assessment and plan (1) Degenerative disc disease, cervical: Status: Acute Category: Medical Code(s): M50.30 - Other cervical disc degeneration, unspecified cervical region (2) Lumbar radiculopathy: Status: Acute Category: Medical Code(s): M54.16 - Radiculopathy, lumbar region (3) Degenerative disc disease, lumbar: Status: Acute Category: Medical Code(s): M51.369 - Other intervertebral disc degeneration, lumbar region without mention of lumbar back pain or lower extremity pain (4) Radiculopathy affecting upper extremity: Status: Acute Category: Medical Code(s): M54.10 - Radiculopathy, site unspecified Plan Patient has tried and failed conservative therapy including oral medications, heat and ice, topicals, prior injection therapy and continued at home stretching exercise for longer than 12 weeks with no additional changes. I did discuss with the patient that we would still be relying on more injection therapy here in our office to provide improvement and that it is at his discretion if he would like to proceed forward with any additional injections. Patient was also counseled due to his chronic pain that in the past has not responded well with injection therapy that he may be a beneficial candidate of a intrathecal pain pump trial. Risk and benefits were discussed with the patient and he would like to proceed forward with the pump trial. I will order the patient a psychological evaluation and if he is deemed an appropriate candidate we will proceed forward with the pain pump trial at a later date. Patient will return to clinic in 1 month for reevaluation of symptoms and plan of care. Patient has been instructed to contact the clinic with any concerns before the next appointment. Dr. Byrnes has reviewed this note and agrees with this plan of care. This note was dictated using voice recognition software and make contain errors or omissions. All injections are used with Lidocaine, Bupivacaine and Depo Medrol. Occasionally urine drug screen is needed to verify patient's compliance with our office pain contract. This is ordered based off specific treatments related to chronic pain with the potential to abuse certain medications.
[2024-10-15 11:32] VITALS: BP 109/70; PULSE 90; RESP 16; O2SAT 93; BMI 41.8
== END 2024-10-15 23:59 | disposition home or self-care (01) ==
LOC: SC.PAIN 10:46
PROVIDERS: PCP Family Medicine; Visit Provider Nurse Practitioner Family
DX: M50.30 Other cervical disc degeneration, unspecified cervical region (principal); M51.16 Intervertebral disc disorders with radiculopathy, lumbar region; F17.210 Nicotine dependence, cigarettes, uncomplicated; Z79.899 Other long term (current) drug therapy
CPT/HCPCS: 99212; G0463

== ENCOUNTER 2024-10-16 11:10 | Outpatient (CLI) | payer MEDICARE, OTHER, SELFPAY ==
[2024-10-16 18:10] LABS: Coronavirus 19, PCR Not Detected (NotDetected); Human Rhinovirus Not Detected (NotDetected); Influenza A, PCR Not Detected (NotDetected); Influenza B, PCR Not Detected (NotDetected); Respiratory Syncytial Virus Not Detected (NotDetected)
== END 2024-10-16 23:59 | disposition home or self-care (01) ==
LOC: LAB.DROPOF 10-17 10:41
PROVIDERS: PCP Family Medicine; Visit Provider Family Medicine
DX: R05.9 Cough, unspecified (principal)
CPT/HCPCS: 87631

== ENCOUNTER 2024-10-24 15:08 | Outpatient (CLI) | payer MEDICARE, OTHER, SELFPAY ==
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
== END 2024-10-24 23:59 | disposition home or self-care (01) ==
LOC: RAD 15:09
PROVIDERS: PCP Family Medicine; Visit Provider Family Medicine
DX: R07.81 Pleurodynia (principal)
CPT/HCPCS: 71101

== ENCOUNTER 2024-11-14 12:35 | Outpatient (POV) | payer MEDICARE, SELFPAY ==
[2024-11-14 13:13] VITALS: BP 129/77; PULSE 80; RESP 16; O2SAT 95; BMI 41.8
--- NOTE | 2024-11-14 13:14 | A.OFFVIS_ITS ---
[facility] Disclaimer: The information contained in this section may have been updated after the patient was seen, as this information can be updated by other users. Medical History (Updated 11/11/24 @ 10:41 by Carlos Voss MD) Knee pain Rib pain on right side Tobacco use Radiculopathy affecting upper extremity Neck pain Mcarthur esophagus Colonic polyp Testicular microlithiasis Low back pain Low back pain radiating to both legs CHF (congestive heart failure) HTN (hypertension) COPD (chronic obstructive pulmonary disease) Sleep apnea Asthma Tardive dyskinesia Stopped smoking with greater than 20 pack year history Allergic rhinitis Dyspnea on exertion Major depressive disorder COVID-19 Moderate persistent asthma Allergic rhinitis, unspecified Stopped smoking with greater than 15 pack year history Tobacco abuse disorder Dyspnea on exertion Encounter for pre-operative cardiovascular clearance Chest pain Hypokalemia COVID-19 virus infection Edema Renal insufficiency Dyspnea Morbid obesity due to excess calories History of hyperlipidemia HARSH (obstructive sleep apnea) CAD (coronary artery disease), [place] coronary artery GERD (gastroesophageal reflux disease) Ex-smoker Obesity (BMI 30-39.9) Back pain Anxiety Surgical History History of surgery History of colonoscopy History of cardiac cath History of appendectomy Family History Other Coronary artery disease Diabetes Hyperlipidemia Hypertension Social History Smoking Status: Current every day smoker tobacco type: cigarettes packs per day: 1 second hand exposure: No alcohol intake: never substance use type: denies use current occupational status: other Travel in the last 8 weeks: None household members: spouse housing: house lives independently: No marital status: number of children: 0 current occupational exposures/hazards: No caffeine: Yes do you feel safe at home: Yes victim of physical abuse: No victim of emotional abuse: No victim of sexual abuse: No would you like helpful sources: No Have you lived/traveled outside [place] in past 30 days?: No Contact w/someone who lives/traveled outside [place] past 30 days?: No Exposure to someone with infectious disease in past 14 days?: No Do you have a fever (greater than 100.4 F or 38 C)?: No Have you tested positive for COVID-19: No Exposed to someone with COVID-19 in past 14 days?: No Do you have a sore throat?: No Do you have a cough?: No Do you have any weakness?: No Do you have any diarrhea?: No Are you experiencing any unusual bleeding?: No Do you have any muscle aches/pain?: No Do you have any abdominal pain?: No Are you experiencing loss of taste or smell?: No PM Subjective & Objective Subjective Subjective:: Patient is a pleasant 49-year-old male who presents today for follow-up. He rates his pain today a 8out of 10. He denies any new trauma or injury. Patient does state that he still has the chronic neck pain that just never seems to go away as well as back pain. Patient at our last visit was sent for psychological evaluation. He states that this was scheduled however he ended up having to reschedule it and has not gotten a new date and time just yet. He does state that he is still deciding whether or not to proceed forward with this plan of care. He states he is very interested but wanted to know whether or not if he would still be able to work with the device if he did end up having it implanted. Patient is prescribed gabapentin from an outside provider and compounded cream from our office. He does state that the lidocaine patches were not covered by his insurance. His Jonathan has been reviewed and is appropriate. Review of Systems: General: No recent weight changes, no fever, no sleep disturbances Respiratory: No cough, no shortness of air, no recurring pulmonary infections Cardiovascular/peripheral vascular: No chest pain, no palpitations, no edema, no shortness of breath Gastrointestinal: No new onset incontinence, normal bowel movements reported Genitourinary: No new onset incontinence Musculoskeletal: Neck pain, low back pain Psychiatric: [Normal mood/affect] Neurological: [Denies weakness in extremities], [denies balance issues] Pain at rest (0-10 scale): 8 Objective Objective:: Physical Exam: General: Alert and oriented x3, no acute distress, pleasant and cooperative Lungs: Respirations even and unlabored, symmetrical chest expansion Eyes: PERRL Musculoskeletal: Flexion and extension of lumbar [spine] somewhat guarded seco ndary to pain, [antalgic gait noted] Neurological: Speech clear, no gross sensory deficit Has patient had previous pain injection?: No Conservative treatment options previously tried: Home exercise plan Length of treatment: Longer than 12 weeks Meds Home Medications and Allergies Home Medications ?Medication ?Instructions ?Recorded ?Confirmed ?Type aspirin 81 mg chewable tablet 81 mg PO DAILY Heart disease #90 04/25/22 11/14/24 Rx tabs fluticasone propionate 50 2 spray intranasal DAILY allergies 04/27/23 11/14/24 Rx mcg/actuation nasal #9.9 mL spray,suspension atorvastatin 40 mg tablet See Rx Instructions .Route 03/14/24 11/14/24 Rx .COMPLEX #90 tabs furosemide 40 mg tablet 40 mg PO DAILY 08/06/24 11/14/24 History fluoxetine 40 mg capsule See Rx Instructions .Route 08/18/24 11/14/24 Rx .COMPLEX #90 caps risperidone 3 mg tablet (Risperdal) See Rx Instructions PO BID #30 tabs 08/18/24 11/14/24 Rx albuterol sulfate 90 mcg/actuation See Rx Instructions .Route 08/26/24 11/14/24 Rx aerosol inhaler .COMPLEX #9 grams nitroglycerin 0.4 mg sublingual See Rx Instructions .Route 09/02/24 11/14/24 Rx tablet .COMPLEX #25 tabs valbenazine 40 mg capsule 40 mg PO DAILY #30 caps 09/03/24 11/14/24 Rx (Edezza) trazodone 100 mg tablet See Rx Instructions .Route 09/29/24 11/14/24 Rx .COMPLEX #30 tabs gabapentin 400 mg capsule 400 mg PO TID #90 caps 10/15/24 11/14/24 Rx omeprazole 40 mg capsule,delayed 40 mg PO DAILY 10/16/24 11/14/24 History release spironolactone 100 mg tablet 100 mg PO ONCE 10/16/24 11/14/24 History semaglutide (weight loss) 1.7 See Rx Instructions .Route 10/22/24 11/14/24 Rx mg/0.75 mL subcutaneous pen .COMPLEX #4 mL injector (Thee) doxycycline hyclate 100 mg capsule 100 mg PO BID #14 caps 11/11/24 11/14/24 Rx promethazine-DM 6.25 mg-15 mg/5 mL 5 ml PO Q4-6H PRN cough #120 mL 11/11/24 11/14/24 Rx oral syrup New Prescriptions to Start Prescriptions: Allergies Allergy/AdvReac Type Severity Reaction Status Date / Time No Known Allergies Allergy Verified 11/11/24 09:57 Assessment and Plan *Assessment and plan (1) Lumbar radiculopathy: Status: Acute Category: Medical Code(s): M54.16 - Radiculopathy, lumbar region (2) Degenerative disc disease, cervical: Status: Acute Category: Medical Code(s): M50.30 - Other cervical disc degeneration, unspecified cervical region (3) Degenerative disc disease, lumbar: Status: Acute Category: Medical Code(s): M51.369 - Other intervertebral disc degeneration, lumbar region without mention of lumbar back pain or lower extremity pain Plan I did review over again the risk and benefits of the procedure and did explain to him it is completely at his discretion if he would like to proceed forward with this option. Patient was counseled that we cannot guarantee how well it does provide relief and that there is the chance that he still has pain on a day -to-day frequency however it would be something that may provide better quality of life than what he currently has. Patient was counseled that the trial is he has opportunity to see whether or not if this would be beneficial and it would be at his discretion if he chose to proceed forward with the actual implant. Patient does acknowledge understanding. Patient does state that he will reach out to the office for the psychological evaluation to get this rescheduled. I did prevocational/rehabilitation counselor him that we will plan on giving him a 1 month follow-up however that if he has not completed the psychological evaluation at that timeframe that he can call and push back his appointment here in our office. Patient agrees with this. Patient has been instructed to contact the clinic with any concerns before the next appointment. Dr. Byrnes has reviewed this note and agrees with this plan of care. This note was dictated using voice recognition software and make contain errors or omissions. All injections are used with Lidocaine, Bupivacaine and Depo Medrol. Occasionally urine drug screen is needed to verify patient's compliance with our office pain contract. This is ordered based off specific treatments related to chronic pain with the potential to abuse certain medications.
== END 2024-11-14 23:59 | disposition home or self-care (01) ==
LOC: SC.PAIN 12:37
PROVIDERS: PCP Family Medicine; Visit Provider Nurse Practitioner Family
DX: M50.30 Other cervical disc degeneration, unspecified cervical region (principal); M51.16 Intervertebral disc disorders with radiculopathy, lumbar region; F17.210 Nicotine dependence, cigarettes, uncomplicated; Z79.899 Other long term (current) drug therapy
CPT/HCPCS: 99212; G0463

== ENCOUNTER 2024-12-29 14:04 | Outpatient (CLI) | payer MEDICARE, SELFPAY ==
[2024-12-29 14:34] LABS: Basophils # 0.1 K/mm3 (0-0.2); Basophils % 0.6 % (0.1-2.0); Eosinophils # 0.4 K/mm3 (0.0-0.4); Eosinophils % 3.7 % (0.1-12.0); Hematocrit 38.1 % (42.0-52.0); Hemoglobin 13.1 g/dL (14.1-18.0); Lymphocytes # 2.4 K/mm3 (0.7-4.5); Lymphocytes % 23.3 % (10-50); Mean Corpuscular HGB Conc 34.4 g/dL (31.8-35.4); Mean Corpuscular Hemoglobin 29.6 pg (27.0-31.2); Mean Corpuscular Volume 86.2 fl (80-94); Monocytes # 0.6 K/mm3 (0.1-1.0); Monocytes % 5.6 % (1.7-9.3); Neutrophils # 6.9 K/mm3 (1.8-7.8); Neutrophils % 65.7 % (37.0-80.0); Platelet Count 243 K/mm3 (142-424); Red Blood Count 4.42 M/mm3 (4.60-6.20); Red Cell Distribution Width 13.3 % (11.5-17.5); White Blood Count 10.5 K/mm3 (4.8-10.8)
[2024-12-29 14:54] LABS: Albumin Level 4.2 g/dl (3.5-5.0)
[2024-12-29 14:55] LABS: Chloride 104 mmol/L (98-107); Potassium 4.3 mmoL/L (3.5-5.1); Sodium 134 mmol/L (136-145)
[2024-12-29 14:57] LABS: Alanine Aminotransferase 19 U/L (12-78); Anion Gap 8.3 mEq/L (5-15); Aspartate Amino Transferase 21 U/L (17-59); Bilirubin,Unconjugated 0.4 mg/dL (0.0-1.1); Blood Urea Nitrogen 10 mg/dl (9-20); Carbon Dioxide 26 mmol/L (22.0-30.0); Estimated Glomerular Filt Rate 71 ml/min (>60); GFR (African American) 86 ML/MIN (>60); Total Protein,Serum 6.5 g/dl (6.3-8.2)
[2024-12-29 14:58] LABS: Alkaline Phosphatase 81 U/L (38-126); Bilirubin,Direct 0.1 mg/dl (0.0-0.4); Bilirubin,Indirect 0.4 mg/dL (0.0-0.9); Bilirubin,Total 0.5 mg/dl (0.2-1.3); Calcium 9.4 mg/dl (8.4-10.2); Chol/HDL Ratio 3.7 (1-3.5); Cholesterol 95 mg/dl (140-200); Glucose 95 mg/dl (74-100); HDL Cholesterol 26 mg/dl (40-60); Magnesium 1.9 mg/dl (1.6-2.3); Triglycerides 141 mg/dl (30-150); VLDL Cholesterol 28 mg/dL (0-40)
[2024-12-29 15:11] LABS: Direct LDL Cholesterol 42.88 mg/dL (100-129)
[2024-12-29 15:27] LABS: Free T4 (Free Thyroxine) 0.95 ng/dl (0.78-2.19)
[2024-12-29 15:28] LABS: Thyroid Stimulating Hormone 1.16 uIU/mL (0.465-4.68)
== END 2024-12-29 23:59 | disposition home or self-care (01) ==
LOC: LAB 14:05
PROVIDERS: PCP Family Medicine; Visit Provider Physician Assistant
DX: I10 Essential (primary) hypertension (principal); E87.6 Hypokalemia; I95.9 Hypotension, unspecified; E78.2 Mixed hyperlipidemia; I25.10 Atherosclerotic heart disease of native coronary artery without angina pectoris
CPT/HCPCS: 36415; 80048; 80061; 80076; 83735; 84439; 84443; 85025

== ENCOUNTER 2025-01-22 06:12 | Outpatient (CLI) | payer MEDICARE, OTHER, SELFPAY ==
--- NOTE | 2025-01-22 | CA_ITS ---
APPROVED REPORT Exam: Pharmacologic Technologist: Leona Min Ht: 5 ft 10 in Wt: 292 lbs BSA: 2.45 m2 Stress Test Details Test: Lexiscan Reason for pharmacologic stress test: physical limitation. HR Resting HR: 77 bpm Max Heart Rate (APMHR): 171 bpm Max HR Achieved: 105 bpm Target HR (85% APMHR): 145 bpm % of APMHR: 61 Recovery HR: 90 bpm BP Resting BP: 106.0/61.0 mmHg Max BP: 107.0/64.0 mmHg Recovery BP: 107.0/64.0 mmHg ECG Resting ECG: SR 77 Early Repolarization Stress ECG Conclusion Symptoms: SOA. Nausea. Arrhythmias/Ectopy: None. ST-T Changes: Lexiscan. Electronically signed by : Christiana Cardoso MD 01/25/2025 21:55:03
--- NOTE | 2025-01-22 06:30 | NM_ITS ---
APPROVED REPORT Exam: Nuclear Stress Test Indication: cp..soa Patient Location: Outpatient Stress Tech: Leona Camarillo ME Tech:ELISABET Lewis RT(R)(N) Ht: 5 ft 11 in Wt: 292 lbs HR: 77 bpm BP: 106/61 mmHg BSA: 2.48 m2 Rhythm: NSR TID: 0.85 BMI: 40.7 History: cp..soa Procedure: Patient received 0.4 mg of intravenous Lexiscan, resting heart rate 77 bpm, resting blood pressure 106/61 mmHg, with Lexiscan maximum heart rate achieved was 101 bpm which is 85 % of the maximum predicted heart rate and blood pressure was 96/72 mmHg. With Lexiscan, patient denied any complaint of chest pain. The patient was not able to lay on his abdomen. Cardiac Stress and Resting SPECT Images: Cardiac Stress and Resting SPECT images were obtained using technetium 99m Myoview 31.3 mCi stress and 10.37 mCi at rest. The patient was unable to lie on his abdomen. Therefore, prone stress imaging could not be performed. This may affect diagnostic interpretation of the study findings. Resting and stress imaging in supine positions demonstrate a small sized, moderate, reversible perfusion defect in the apical LV wall. Gated imaging demonstrates normal global LV systolic function. LVEF is calculated at 71%. Conclusion: Small sized, moderate, reversible perfusion defect in the apical LV wall. Findings are suggestive of reversible ischemia. Gated imaging demonstrates normal global LV systolic function. LVEF is calculated at 71%. Electronically signed by : Christiana Cardoso MD 01/25/2025 21:45:20
[2025-01-22] MEDS: ISOTOPE MYOVIEW (PER STUDY) 1 DOSE IV (10:03)
[2025-01-22] MEDS: REGADENOSON 0.4MG/5ML SYRINGE 0.4 MG IV (10:03)
[2025-01-22] MEDS: SODIUM CHLORIDE 0.9% 10ML SYR (RAD ONLY) 10 ML IV ×2 (10:03)
== END 2025-01-22 23:59 | disposition home or self-care (01) ==
LOC: RAD 06:13
PROVIDERS: PCP Family Medicine; Visit Provider Family Medicine
DX: R07.89 Other chest pain (principal); R42 Dizziness and giddiness; I25.10 Atherosclerotic heart disease of native coronary artery without angina pectoris; F17.210 Nicotine dependence, cigarettes, uncomplicated; R06.09 Other forms of dyspnea
CPT/HCPCS: 78452; 93017; 93018; A9502; J2785

== ENCOUNTER 2025-01-28 17:10 | Observation (INO) | payer MEDICARE, OTHER, SELFPAY ==
[2025-01-28] VITALS (10 sets, daily range): BP systolic 101–115; BP diastolic 56–74; PULSE 49–93; RESP 15–22; TEMP 36.4–36.6; O2SAT 90–97; BMI 40.0
--- NOTE | 2025-01-28 17:10 | ECG_ITS ---
APPROVED REPORT Exam: Resting ECG HR:91 bpm ECG Measurements Heart Rate 91 AXES ND 188 P 46 QRSd 109 QRS 17 QT 369 T 40 QTc 417 Conclusion SINUS RHYTHM INFERIOR MYOCARDIAL INFARCTION , PROBABLY OLD [40+ ms Q WAVE AND/OR ST/T ABNORMALITY IN II/aVF] ANTEROLATERAL MYOCARDIAL INFARCTION , PROBABLY OLD [40+ ms Q WAVE IN I/aVL/V3-V6] ABNORMAL ECG UNCONFIRMED REPORT Electronically signed by : JOSE DANIEL HILL, 01/30/2025 06:08:50
--- NOTE | 2025-01-28 17:15 | CT_ITS ---
PROCEDURE INFORMATION: Exam: CTA Chest With Contrast CTA Abdomen and Pelvis With Contrast Exam date and time: 01/28/2025 5:48 PM Age: 49 years old Clinical indication: Angina pectoris; Other: Chest pain with syncope; Additional info: Chest pain, syncope TECHNIQUE: Imaging protocol: Computed tomographic angiography of the chest with contrast. Exam focused on the arteries. Computed tomographic angiography of the abdomen and pelvis with contrast. Exam focused on the arteries. 3D rendering (Not supervised by radiologist): MIP and/or 3D reconstructed images were created by the technologist. Radiation optimization: All CT scans at this facility use at least one of these dose optimization techniques: automated exposure control; mA and/or kV adjustment per patient size (includes targeted exams where dose is matched to clinical indication); or iterative reconstruction. Contrast material: ISOVUE 370; Contrast volume: 80 ml; Contrast route: INTRAVENOUS (IV); COMPARISON: CT ANGIO CHEST PE PROTOCOL 09/09/2023 11:28 AM FINDINGS: VASCULATURE: Pulmonary arteries: Normal. No pulmonary emboli. Aorta: Mild infrarenal atherosclerosis. No aortic aneurysm. No aortic dissection. Celiac trunk and mesenteric arteries: No occlusion or significant stenosis. Renal arteries: No occlusion or significant stenosis. Right iliac arteries: No occlusion or significant stenosis. Left iliac arteries: Mild atherosclerosis. No occlusion or significant stenosis. CHEST: Lungs: Left lower lobe calcified granuloma. Left lower lobe atelectasis. No consolidation. No masses. Stable 6 mm left lower lobe superior segment subpleural pulmonary nodule. Pleural spaces: Unremarkable. No pneumothorax. No pleural effusion. Heart: Unremarkable. No cardiomegaly. No pericardial effusion. Coronary arteries: No significant coronary artery calcifications. ABDOMEN AND PELVIS: Liver: No mass. Gallbladder and biliary ducts: Unremarkable. No calcified stones. No ductal dilation. Pancreas: Unremarkable. No mass. No ductal dilation. Spleen: Calcified granulomas. No splenomegaly. Adrenal glands: Unremarkable. No mass. Kidneys and ureters: Subcentimeter hypodense focus within the left kidney midpole, too small to fully characterize, although most likely represents a cyst. No solid mass. No hydronephrosis. Stomach and bowel: Fecalized terminal ileum suggestive of delayed transit. No obstruction. No mucosal thickening. Appendix: No evidence of appendicitis. Intraperitoneal space: Unremarkable. No free air. No significant fluid collection. Urinary bladder: Unremarkable. No mass. Reproductive: Unremarkable as visualized. Lymph nodes: Stable mildly prominent mediastinal lymph nodes, with an index prevascular lymph node measuring 1.1 cm in short axis. Stable left interlobar calcified lymph nodes. Bones/joints: Redemonstrated old L2 superior endplate compression deformity. No acute fracture. Degenerative changes Soft tissues: Gynecomastia. Small fat containing umbilical hernia. Small right spigelian hernia containing fat and a short segment loop of bowel without evidence of strangulation/incarceration or bowel obstruction. IMPRESSION: Unremarkable CTA chest, abdomen, and pelvis. No aortic aneurysm or dissection. COMMENTS: Consistent with the [employer]'s Incidental Findings Committee white paper (J Am Zelalem Radiol 2018): Any incidental renal lesion less than 1 cm or classified as too small to characterize, or any incidental cystic renal lesion characterized as simple-appearing, is likely benign. No follow-up imaging is recommended for these lesions per consensus recommendations based on imaging criteria.
--- NOTE | 2025-01-28 17:15 | XR_ITS ---
PROCEDURE INFORMATION: Exam: XR Chest Exam date and time: 01/28/2025 5:36 PM Age: 49 years old Clinical indication: Sternal or substernal pain; Additional info: Chest pain TECHNIQUE: Imaging protocol: Radiologic exam of the chest. Views: 1 view. COMPARISON: CR XR RIBS RT MIN 3V W CXR1V 10/24/2024 3:18 PM FINDINGS: Lungs: No consolidation. Pleural spaces: No pleural effusion. No pneumothorax. Heart/Mediastinum: No cardiomegaly. Bones/joints: Unremarkable. IMPRESSION: No acute findings.
--- NOTE | 2025-01-28 17:18 | HMH.EDGENADL ---
Discharge Plan Disposition Chief Complaint: Chest Pain Discharge ED Provider: Arnie Long General Adult HPI General Chief complaint: Chest Pain Stated complaint: chest pain Time Seen by Provider: 01/28/25 17:13 Mode of Arrival: Ambulatory Source of Information: Patient Limitations: No Limitations History of Present Illness HPI narrative: This is a 49-year-old male with a past medical history of CAD, hypertension, hyperlipidemia, GERD, heart failure with preserved ejection fraction, HARSH presenting with sudden onset chest pain and syncope that began about 1 hour prior to arrival. Has had 2 syncopal episodes witnessed by since then. States that his chest pain is left-sided and very severe. Also reports diaphoresis. 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 Related Data Home Medications ?Medication ?Instructions ?Recorded ?Confirmed furosemide 40 mg tablet 40 mg PO DAILY 08/06/24 01/19/25 Previous Rx's ?Medication ?Instructions ?Recorded aspirin 81 mg chewable tablet 81 mg PO DAILY Heart disease #90 04/25/22 tabs fluticasone propionate 50 2 spray intranasal DAILY allergies 04/27/23 mcg/actuation nasal #9.9 mL spray,suspension atorvastatin 40 mg tablet See Rx Instructions .Route 03/14/24 .COMPLEX #90 tabs fluoxetine 40 mg capsule See Rx Instructions .Route 08/18/24 .COMPLEX #90 caps nitroglycerin 0.4 mg sublingual See Rx Instructions .Route 09/02/24 tablet .COMPLEX #25 tabs trazodone 100 mg tablet See Rx Instructions .Route 09/29/24 .COMPLEX #30 tabs metoprolol succinate 25 mg 25 mg PO DAILY #30 tabs 11/28/24 tablet,extended release 24 hr (Toprol XL) risperidone 3 mg tablet (Risperdal) See Rx Instructions PO BID #30 tabs 12/02/24 mupirocin 2 % topical ointment 1 applic topical TID #15 grams 12/09/24 polyethylene glycol 3350 17 gram 17 g PO DAILY #100 ea 12/10/24 oral powder packet (Miralax) psyllium husk 3.4 gram/5.4 gram 1 tbsp PO DAILY #660 grams 12/10/24 oral powder (Metamucil) gabapentin 400 mg capsule 400 mg PO TID #90 caps 12/15/24 valbenazine 40 mg capsule 40 mg PO DAILY #90 caps 12/30/24 (Ingrezza) omeprazole 40 mg capsule,delayed 40 mg PO DAILY #30 caps 01/01/25 release hydroxyzine HCl 25 mg tablet 25 mg PO TID PRN anxiety #60 tabs 01/19/25 spironolactone 100 mg tablet 100 mg PO ONCE #90 tabs 01/20/25 semaglutide (weight loss) 2.4 2.4 mg (0.75 mL) SQ WEEKLY #3 mL 01/22/25 mg/0.75 mL subcutaneous pen injector (Wegovy) albuterol sulfate 90 mcg/actuation See Rx Instructions .Route 01/26/25 aerosol inhaler .COMPLEX #9 grams Allergies Allergy/AdvReac Type Severity Reaction Status Date / Time No Known Allergies Allergy Verified 01/19/25 10:25 [facility] Disclaimer: The information contained in this section may have been updated after the patient was seen, as this information can be updated by other users. Medical History Nausea & vomiting Impetigo Knee pain Rib pain on right side Tobacco use Radiculopathy affecting upper extremity Neck pain Mcarthur esophagus Colonic polyp Testicular microlithiasis Low back pain Low back pain radiating to both legs CHF (congestive heart failure) HTN (hypertension) COPD (chronic obstructive pulmonary disease) Sleep apnea Asthma Tardive dyskinesia Stopped smoking with greater than 20 pack year history Allergic rhinitis Dyspnea on exertion Major depressive disorder COVID-19 Moderate persistent asthma Allergic rhinitis, unspecified Stopped smoking with greater than 15 pack year history Tobacco abuse disorder Dyspnea on exertion Encounter for pre-operative cardiovascular clearance Chest pain Hypokalemia COVID-19 virus infection Edema Renal insufficiency Dyspnea Morbid obesity due to excess calories History of hyperlipidemia HARSH (obstructive sleep apnea) CAD (coronary artery disease), [place] coronary artery GERD (gastroesophageal reflux disease) Ex-smoker Obesity (BMI 30-39.9) Back pain Anxiety Surgical History History of surgery cyst on back removed History of colonoscopy History of cardiac cath History of appendectomy Family History Other Coronary artery disease Diabetes Hyperlipidemia Hypertension Social History Smoking Status: Current every day smoker tobacco type: cigarettes packs per day: 1 second hand exposure: No alcohol intake: never substance use type: denies use current occupational status: other Travel in the last 8 weeks: None household members: spouse housing: house lives independently: No marital status: number of children: 0 current occupational exposures/hazards: No caffeine: Yes do you feel safe at home: Yes victim of physical abuse: No victim of emotional abuse: No victim of sexual abuse: No would you like helpful sources: No Have you lived/traveled outside [place] in past 30 days?: No Contact w/someone who lives/traveled outside [place] past 30 days?: No Exposure to someone with infectious disease in past 14 days?: No Do you have a fever (greater than 100.4 F or 38 C)?: No Have you tested positive for COVID-19: No Exposed to someone with COVID-19 in past 14 days?: No Do you have a sore throat?: No Do you have a cough?: No Do you have any weakness?: No Do you have any diarrhea?: No Are you experiencing any unusual bleeding?: No Do you have any muscle aches/pain?: No Do you have any abdominal pain?: No Are you experiencing loss of taste or smell?: No Other Medical History Have you received the Flu Vaccine for this season: Yes Have you received the Pneumonia Vaccine: No ROS Obtained: Yes All systems reviewed & no additional complaints except as documented Physical Exam General General appearance: alert, anxious and in distress Comment: Diaphoretic Head Head exam: atraumatic Eye Eye exam: Present normal appearance, PERRL and EOMI Neck Neck exam: Present normal inspection and full ROM Chest Chest inspection: Present symmetric chest wall rise Respiratory Respiratory exam: Present normal lung sounds bilaterally; Absent respiratory distress Cardiovascular Cardiovascular exam: Present regular rate and normal rhythm Abdominal Exam Abdominal exam: Present soft; Absent distention Extremities Exam Extremities exam: Present normal inspection Neurological Exam Neurological exam: Present alert and oriented X3 Psychiatric Psychiatric exam: Present normal affect and normal mood Skin Skin exam: Present warm and dry Medical Decision Making Medical Records Medical records reviewed: Yes I reviewed the patient's medical records. Screening: Per USPSTF and CDC recommendations, given the prevalence of disease in our region, it is our hospital?s policy to screen for HIV and viral Hepatitis for all patients aged 18 and over and those with ongoing risk factors. MR Comment: Cardiology clinic visit note from 12/29/2024 as well as exercise stress test performed on 01/22. He ended up having a pharmacologic stress test due to physical limitation. Stress test demonstrated small sized, moderate reversible perfusion defect in apical LV wall suggestive of reversible ischemia. Normal global LV systolic function with LVEF calculated at 71%. Jonathan Inquiry Pt receiving controlled substance: No Vital Signs: 01/28/25 17:12 01/28/25 17:14 01/28/25 17:23 Temperature 97.6 F Temperature Source Oral Pulse Rate 49 L 88 Pulse Rate [Left Radial] 88 Respiratory Rate 19 20 Blood Pressure 110/74 Blood Pressure [Right Arm] 110/74 Blood Pressure Mean [Right Arm] 86 02 Sat by Pulse Oximetry 94 L 93 L Oxygen Delivery Method Nasal Cannula Room Air Oxygen Flow Rate (LPM) 2 01/28/25 17:30 01/28/25 18:00 01/28/25 18:31 Temperature Temperature Source Pulse Rate 90 93 H 79 Pulse Rate [Left Radial] Respiratory Rate 15 17 19 Blood Pressure 108/61 L 110/70 101/56 L Blood Pressure [Right Arm] Blood Pressure Mean [Right Arm] 02 Sat by Pulse Oximetry 94 L 96 95 Oxygen Delivery Method Nasal Cannula Room Air Room Air Oxygen Flow Rate (LPM) 2 01/28/25 18:52 Temperature 98 F Temperature Source Pulse Rate 87 Pulse Rate [Left Radial] Respiratory Rate 16 Blood Pressure 101/56 L Blood Pressure [Right Arm] Blood Pressure Mean [Right Arm] 02 Sat by Pulse Oximetry Oxygen Delivery Method Oxygen Flow Rate (LPM) Lab Data Lab Results 01/28/25 17:12: POC Glucose 119 H 01/28/25 17:18: WBC 12.2 H, RBC 4.57 L, Hgb 13.4 L, Hct 39.0 L, MCV 85.3, MCH 29.3, MCHC 34.4, RDW 13.2, Plt Count 274, MPV 9.9, Neut % (Auto) 65.6, Lymph % (Auto) 23.5, [place] % (Auto) 5.4, Eos % (Auto) 4.4, Baso % (Auto) 0.7, Neut # (Auto) 8.0 H, Lymph # (Auto) 2.9, [place] # (Auto) 0.7, Eos # (Auto) 0.5 H, Baso # (Auto) 0.1, Sodium 137, Potassium 3.8, Chloride 103, Carbon Dioxide 23, Anion Gap 14.8, BUN 9, Creatinine 1.20, Estimated Creat Clear 137, Estimated GFR 64, Est GFR ( Amer) 78, Glucose 121 H, Calcium 8.9, Total Bilirubin 0.4, AST 24, ALT 20, Alkaline Phosphatase 69, Troponin I < 0.01, NT-Pro-B Natriuret Pep 20.1, Total Protein 7.2, Albumin 4.0, Globulin 3.2, Albumin/Globulin Ratio 1.3 01/28/25 17:18 01/28/25 17:18 Orders (Tests/Meds): ED MEDICATIONS Generic Name Dose Route Start Last Admin Trade Name Freq PRN Reason Stop Dose Admin Morphine Sulfate 4 mg 01/28/25 18:25 Morphine 4mg/Ml Syringe IV 02/27/25 18:24 Q4HP PRN Severe Pain (7-10) Nicotine 21 mg 01/28/25 18:25 Nicotine 21mg/24hr Patch TD 02/27/25 18:24 DAILYP PRN Nicotine Cravings Pantoprazole Sodium 40 mg 01/28/25 21:00 Pantoprazole 40mg Tablet PO 02/27/25 20:59 HS JABARI Sodium Chloride 10 ml 01/28/25 17:54 01/28/25 17:55 Sodium Chloride 0.9% 10ml Syr (Rad Only) IV 02/27/25 17:53 10 ml NEEDED PRN Administration Maintain IV Site Discontinued Medications Generic Name Dose Route Start Last Admin Trade Name Freq PRN Reason Stop Dose Admin Aspirin 324 mg 01/28/25 17:21 01/28/25 17:22 Aspirin 81mg Chewable Tablet PO 01/28/25 17:22 324 mg ONCE ONE Administration Enoxaparin Sodium 130 mg 01/28/25 18:23 01/28/25 18:38 Enoxaparin 100mg/Ml Syringe 1 mg/kg (130 mg) 01/28/25 18:24 130 mg SUBCUT Administration ONCE ONE Iopamidol 80 ml 01/28/25 17:54 01/28/25 17:55 Iopamidol-370 (76%);100ml Bottle IV 01/28/25 17:55 80 ml ONCE ONE Administration Sodium Chloride 50 ml 01/28/25 17:54 01/28/25 17:55 0.9 % Sodium Chloride 50 Ml Vial IV 01/28/25 17:55 50 ml ONCE ONE Administration ORDERS Category Date Time Status CT angio abdomen pelvis Stat Cat Scan 01/28/25 17:15 Completed CTA Chest [CT angio chest - dissection] Stat Cat Scan 01/28/25 17:15 Completed Cardiology Consult [Consult to Cardiology] [CONS] Cons 01/28/25 18:28 Active Routine Chest XR -- portable [XR chest portable] Stat Exams 01/28/25 17:15 Completed BNP [NT Pro Brain Natriuretic Pep.] Stat Lab 01/28/25 17:18 Completed CBC w/Auto Diff [Complete Blood Count Auto Diff] Stat Lab 01/28/25 17:18 Completed CMP [Comprehensive Metabolic Panel] Stat Lab 01/28/25 17:18 Completed Complete Blood Count Auto Diff AMLAB Lab 01/29/25 06:00 Ordered Comprehensive Metabolic Panel AMLAB Lab 01/29/25 06:00 Ordered Hemoglobin A1C Stat Lab 01/28/25 17:18 Received Magnesium AMLAB Lab 01/29/25 06:00 Ordered POC Glucose,Bedside Routine Lab 01/28/25 17:12 Completed TSH [Thyroid Stimulating Hormone] Stat Lab 01/28/25 17:18 Received Troponin I Q3H Lab 01/28/25 20:15 Ordered Troponin I Q3H Lab 01/28/25 23:15 Ordered Troponin I Stat Lab 01/28/25 17:18 Completed ECG Data Tracing #1: I reviewed this ECG and interpreted as documented below: Normal sinus rhythm at a rate of 91, QTc 417, normal axis, Q waves in the inferior leads that were previously present on EKG that was compared from last month, no STEMI Medical Decision Narrative: In summary, this 49-year-old male with a history of CAD, hyperlipidemia, hypertension, HARSH, heart failure with preserved ejection fraction who presents with sudden onset chest pain, diaphoresis, syncope that began 1 hour prior to arrival. On initial evaluation patient is nontachycardic, normotensive, satting at 90% on room air, ill-appearing and diaphoretic however alert and oriented. Differential diagnosis includes but is not limited to ACS, arrhythmia, aortic dissection, pneumonia, pulmonary embolism. Based on these concerns, I ordered EKG which was immediately obtained and independently interpreted by me as noted above. Was nondiagnostic for STEMI in order to repeat to be performed in the next 15 minutes. He has not abnormal nuclear stress test that was performed on 01/22. High level of concern for ischemia based on patient's history and appearance. Also ordered CBC, CMP, troponin, chest x-ray, CTA of the chest/abdomen/pelvis. Repeat EKG reveals no concerning interval changes. Appears very similar to his EKG from 1 month ago. This was also repeated 30 minutes later revealing of no dynamic changes. No STEMI. Patient received aspirin 324 chewed for treatment on arrival. Labs personally reviewed demonstrate leukocytosis with white blood cell count of 12.2, unremarkable CMP, undetectable troponin. XR personally interpreted demonstrates no acute cardiopulmonary pathology. CT imaging personally interpreted demonstrates no acute aortic dissection or other acute intrathoracic/abdominal pathology. Patient did not have any dynamic changes on repeat EKGs x 3. He had an undetectable troponin with chest pain beginning an hour prior to arrival. Heart score of 5. Remained symptomatic throughout his stay in the emergency department with an abnormal cardiac stress test a few days ago. Consulted cardiology and hospital medicine and patient was ultimately admitted with plan for cardiac catheterization in the morning. Critical Care Critical Care Time Critical Care Time: No
[2025-01-28 17:19] LABS: POC Glucose,Bedside 119 (70-110)
[2025-01-28] MEDS: ASPIRIN 81MG CHEWABLE TABLET 324 MG PO (17:22)
--- NOTE | 2025-01-28 17:30 | ECG_ITS ---
APPROVED REPORT Exam: Resting ECG HR:91 bpm ECG Measurements Heart Rate 91 AXES AK 161 P 24 QRSd 113 QRS 21 QT 371 T 38 QTc 420 Conclusion SINUS RHYTHM INFERIOR MYOCARDIAL INFARCTION , PROBABLY OLD [40+ ms Q WAVE AND/OR ST/T ABNORMALITY IN II/aVF] ANTEROLATERAL MYOCARDIAL INFARCTION , PROBABLY OLD [40+ ms Q WAVE IN I/aVL/V3-V6] ABNORMAL ECG Electronically signed by : Arnie Long, 01/28/2025 19:07:06
[2025-01-28 17:32] LABS: Basophils # 0.1 K/mm3 (0-0.2); Basophils % 0.7 % (0.1-2.0); Eosinophils # 0.5 Kmm3 (0.0-0.4); Eosinophils % 4.4 % (0.1-12.0); Hemoglobin 13.4 g/dL (14.1-18.0); Lymphocytes # 2.9 K/mm3 (0.7-4.5); Lymphocytes % 23.5 % (10-50); Mean Corpuscular HGB Conc 34.4 g/dL (31.8-35.4); Mean Corpuscular Hemoglobin 29.3 pg (27.0-31.2); Mean Corpuscular Volume 85.3 fl (80-94); Mean Platelet Volume 9.9 fl (7.4-10.4); Monocytes # 0.7 K/mm3 (0.1-1.0); Monocytes % 5.4 % (1.7-9.3); Neutrophils % 65.6 % (37.0-80.0); Nucleated Red Blood Cells # 0 10^3/uL; Nucleated Red Blood Cells % 0 %; Platelet Count 274 K/mm3 (142-424); Red Blood Count 4.57 M/mm3 (4.60-6.20); Red Cell Distribution Width 13.2 % (11.5-17.5); Red Cell Distribution Width-SD 40.6 fL; White Blood Count 12.2 K/mm3 (4.8-10.8)
[2025-01-28 17:55] LABS: Alanine Aminotransferase 20 U/L (12-78); Albumin/Globulin Ratio 1.3 (1.1-1.8); Alkaline Phosphatase 69 U/L (38-126); Anion Gap 14.8 mEq/L (5-15); Aspartate Amino Transferase 24 U/L (17-59); Bilirubin,Total 0.4 mg/dl (0.2-1.3); Blood Urea Nitrogen 9 mg/dl (9-20); Calcium 8.9 mg/dl (8.4-10.2); Carbon Dioxide 23 mmol/L (22.0-30.0); Chloride 103 mmol/L (98-107); Creatinine Clearance Estimated 137 mL/min (50-200); Estimated Glomerular Filt Rate 64 ml/min (>60); GFR (African American) 78 ML/MIN (>60); Globulin 3.2 g/dL (1.3-3.2); Glucose 121 mg/dl (74-100); Potassium 3.8 mmoL/L (3.5-5.1); Sodium 137 mmol/L (136-145); Total Protein,Serum 7.2 g/dl (6.3-8.2)
[2025-01-28] MEDS: SODIUM CHLORIDE 0.9% 10ML SYR (RAD ONLY) 10 ML IV (17:55)
[2025-01-28] MEDS: IOPAMIDOL-370 (76%);100ML BOTTLE 80 ML IV (17:55)
[2025-01-28] MEDS: 0.9 % SODIUM CHLORIDE 50 ML VIAL IV (17:55)
--- NOTE | 2025-01-28 18:03 | ECG_ITS ---
APPROVED REPORT Exam: Resting ECG HR:87 bpm ECG Measurements Heart Rate 87 AXES NC 198 P 8 QRSd 101 QRS 43 QT 375 T 19 QTc 420 Conclusion SINUS RHYTHM ANTEROLATERAL MYOCARDIAL INFARCTION , OF INDETERMINATE AGE [40+ ms Q WAVE IN I/aVL/V3-V6] ABNORMAL ECG UNCONFIRMED REPORT Electronically signed by : Arnie Long, 01/28/2025 19:07:38
[2025-01-28 18:04] LABS: NT Pro Brain Natriuretic Pep. 20.1 pg/mL (0-125)
[2025-01-28 18:11] LABS: Troponin I < 0.01 ng/ml (0.00-0.034)
--- NOTE | 2025-01-28 18:27 | PC.NURSE ---
called rooming house keeper for bed
--- NOTE | 2025-01-28 18:37 | PC.NURSE ---
Rounded on the pt. no new complaints at this time. pt requests something to eat. He was taken a sandwhich and drink. call [place] in reach.
[2025-01-28] MEDS: ENOXAPARIN 100MG/ML SYRINGE 130 MG SUBCUT (18:38)
--- NOTE | 2025-01-28 18:42 | PC.NURSE ---
Report called to YAMILET LINN
--- NOTE | 2025-01-28 19:06 | P.HP_ITS ---
<Statement entered by Mcik Bailey MD - 01/29/25 19:28> Rounded on patient after nurse practitioner. Personally examined and interviewed patient. Agree with exam findings and care plan as documented. History of Present Illness *Admission Date: 01/28/25 *Reason for visit:: Chest pain *History of present illness: This is a 49-year-old male who has a past medical history significant for impetigo, radiculopathy of the upper extremity, Mcarthur's esophagus, colonic polyp, testicular microlithiasis, unspecified congestive heart failure, hypertension, COPD, sleep apnea, asthma, tardive dyskinesia, dyspnea with exertion, depression, COVID-19 infection, allergic rhinitis, renal insufficiency, morbid obesity, obstructive sleep apnea, coronary artery disease, GERD, and anxiety who presents with a chief complaint of chest pain. Due to patient's symptoms, he presented to the emergency room for evaluation. While in the emergency room, chest x-ray is without any acute cardiopulmonary findings per my read. CTA of the chest, abdomen, and pelvis are negative for any intra or thoracic, cardiopulmonary, intra pelvis, intra-abdominal acute process per my read. Patient's case was discussed with cardiology and since patient had recent abnormal stress test, hair and makeup designer recommended admission for potential left heart cath. As result of these recommendations, patient has been admitted for further management. During my evaluation of patient, patient states he has been having persistent chest pain rated 7 out of 10 midsternal without any radiation. Spouse at the bedside states patient had 2 episodes of syncope. EKG obtained was without any signs consistent with ischemia or infarction. Patient's most recent stress test performed on January 22 revealed small moderate reversible perfusion defect in apical LV. Patient did have oxygen saturations in the 90 percentile range. Patient is currently denying any lower extremity swelling, headache, blurry vision, double vision, PND, with apnea, nausea, vomiting, or diarrhea. Additional pertinent values obtained include a white blood cell count of 12.2, red blood cell count of 4.57, hemoglobin 13.4, hematocrit 39, blood glucose 121, and thus far troponin has been negative. [facility] Disclaimer: The information contained in this section may have been updated after the patient was seen, as this information can be updated by other users. Medical History Nausea & vomiting Impetigo Knee pain Rib pain on right side Tobacco use Radiculopathy affecting upper extremity Neck pain Mcarthur esophagus Colonic polyp Testicular microlithiasis Low back pain Low back pain radiating to both legs CHF (congestive heart failure) HTN (hypertension) COPD (chronic obstructive pulmonary disease) Sleep apnea Asthma Tardive dyskinesia Stopped smoking with greater than 20 pack year history Allergic rhinitis Dyspnea on exertion Major depressive disorder COVID-19 Moderate persistent asthma Allergic rhinitis, unspecified Stopped smoking with greater than 15 pack year history Tobacco abuse disorder Dyspnea on exertion Encounter for pre-operative cardiovascular clearance Chest pain Hypokalemia COVID-19 virus infection Edema Renal insufficiency Dyspnea Morbid obesity due to excess calories History of hyperlipidemia HARSH (obstructive sleep apnea) CAD (coronary artery disease), telida coronary artery GERD (gastroesophageal reflux disease) Ex-smoker Obesity (BMI 30-39.9) Back pain Anxiety Surgical History History of surgery cyst on back removed History of colonoscopy History of cardiac cath History of appendectomy Family History Other Coronary artery disease Diabetes Hyperlipidemia Hypertension Social History Smoking Status: Current every day smoker tobacco type: cigarettes packs per day: 1 second hand exposure: No alcohol intake: never substance use type: denies use current occupational status: other Travel in the last 8 weeks: None household members: spouse housing: house lives independently: No marital status: number of children: 0 current occupational exposures/hazards: No caffeine: Yes do you feel safe at home: Yes victim of physical abuse: No victim of emotional abuse: No victim of sexual abuse: No would you like helpful sources: No Have you lived/traveled outside [place] in past 30 days?: No Contact w/someone who lives/traveled outside [place] past 30 days?: No Exposure to someone with infectious disease in past 14 days?: No Do you have a fever (greater than 100.4 F or 38 C)?: No Have you tested positive for COVID-19: No Exposed to someone with COVID-19 in past 14 days?: No Do you have a sore throat?: No Do you have a cough?: No Do you have any weakness?: No Do you have any diarrhea?: No Are you experiencing any unusual bleeding?: No Do you have any muscle aches/pain?: No Do you have any abdominal pain?: No Are you experiencing loss of taste or smell?: No Other Medical History Have you received the Flu Vaccine for this season: Yes Have you received the Pneumonia Vaccine: No Review of Systems Review of Systems Review of systems:: pertinent systems reviewed and negative unless documented below Constitutional Constitutional: Reports system reviewed and no additional complaints, except as documented Eyes Eyes: Reports system reviewed and no additional complaints, except as documented ENT Ears, Nose, Mouth, and Throat: Reports system reviewed and no additional complaints, except as documented *Cardiovascular Cardiovascular: Reports chest pain, Reports dyspnea and Reports dyspnea on ex ertion *Respiratory Respiratory: Reports cough, Reports dyspnea, Reports dyspnea on exertion and Reports wheezing *Gastrointestinal Gastrointestinal: Reports system reviewed and no additional complaints, except as documented *Genitourinary Genitourinary: Reports system reviewed and no additional complaints, except as documented *Musculoskeletal Musculoskeletal: Reports system reviewed and no additional complaints, except as documented Integumentary/Breasts Skin/Breast: Reports system reviewed and no additional complaints, except as documented *Neurologic Neurologic: Reports system reviewed and no additional complaints, except as documented Psychiatric Psychiatric: Reports system reviewed and no additional complaints, except as documented Endocrine Endocrine: Reports system reviewed and no additional complaints, except as documented Hematologic/Lymphatic Hematologic/Lymphatic: Reports system reviewed and no additional complaints, except as documented Allergic/Immunologic Allergic/Immunologic: Reports system reviewed and no additional complaints, except as documented and Reports wheezing Meds Home Medications and Allergies Home Medications ?Medication ?Instructions ?Recorded ?Confirmed ?Type aspirin 81 mg chewable tablet 81 mg PO DAILY Heart disease #90 04/25/22 01/19/25 Rx tabs fluticasone propionate 50 2 spray intranasal DAILY allergies 04/27/23 01/19/25 Rx mcg/actuation nasal #9.9 mL spray,suspension atorvastatin 40 mg tablet See Rx Instructions .Route 03/14/24 01/19/25 Rx .COMPLEX #90 tabs furosemide 40 mg tablet 40 mg PO DAILY 08/06/24 01/19/25 History fluoxetine 40 mg capsule See Rx Instructions .Route 08/18/24 01/19/25 Rx .COMPLEX #90 caps nitroglycerin 0.4 mg sublingual See Rx Instructions .Route 09/02/24 01/19/25 Rx tablet .COMPLEX #25 tabs trazodone 100 mg tablet See Rx Instructions .Route 09/29/24 01/19/25 Rx .COMPLEX #30 tabs risperidone 3 mg tablet (Risperdal) See Rx Instructions PO BID #30 tabs 12/02/24 01/19/25 Rx gabapentin 400 mg capsule 400 mg PO TID #90 caps 12/15/24 01/19/25 Rx omeprazole 40 mg capsule,delayed 40 mg PO DAILY #30 caps 01/01/25 01/19/25 Rx release hydroxyzine HCl 25 mg tablet 25 mg PO TID PRN anxiety #60 tabs 01/19/25 01/19/25 Rx spironolactone 100 mg tablet 100 mg PO ONCE #90 tabs 01/20/25 Rx semaglutide (weight loss) 2.4 2.4 mg (0.75 mL) SQ WEEKLY #3 mL 01/22/25 Rx mg/0.75 mL subcutaneous pen injector ([employer]labsvy) albuterol sulfate 90 mcg/actuation See Rx Instructions .Route 01/26/25 Rx aerosol inhaler .COMPLEX #9 grams metoprolol succinate 25 mg 25 mg PO BID 01/28/25 01/28/25 History tablet,extended release 24 hr (Toprol XL) polyethylene glycol 3350 17 gram 17 g PO NEEDED PRN bowels 01/28/25 01/28/25 History oral powder packet (Miralax) New Prescriptions to Start Prescriptions: Allergies Allergy/AdvReac Type Severity Reaction Status Date / Time No Known Allergies Allergy Verified 01/19/25 10:25 Exam Data for Last 24 hours Vital signs and Labs for Last 24 Hours: Temp Pulse Resp BP Pulse Ox O2 Del Method O2 Flow Rate 98 F 87 16 101/56 L 95 Room Air 2 01/28/25 18:52 01/28/25 18:52 01/28/25 18:52 01/28/25 18:52 01/28/25 18:31 01/28/25 18:31 01/28/25 17:30 Laboratory Results - last 24 hr 01/28/25 17:12: POC Glucose 119 H 01/28/25 17:18: WBC 12.2 H, RBC 4.57 L, Hgb 13.4 L, Hct 39.0 L, MCV 85.3, MCH 29.3, MCHC 34.4, RDW 13.2, Plt Count 274, MPV 9.9, Neut % (Auto) 65.6, Lymph % (Auto) 23.5, [place] % (Auto) 5.4, Eos % (Auto) 4.4, Baso % (Auto) 0.7, Neut # (Auto) 8.0 H, Lymph # (Auto) 2.9, [place] # (Auto) 0.7, Eos # (Auto) 0.5 H, Baso # (Auto) 0.1, Sodium 137, Potassium 3.8, Chloride 103, Carbon Dioxide 23, Anion Gap 14.8, BUN 9, Creatinine 1.20, Estimated Creat Clear 137, Estimated GFR 64, Est GFR ( Amer) 78, Glucose 121 H, Calcium 8.9, Total Bilirubin 0.4, AST 24, ALT 20, Alkaline Phosphatase 69, Troponin I < 0.01, NT-Pro-B Natriuret Pep 20.1, Total Protein 7.2, Albumin 4.0, Globulin 3.2, Albumin/Globulin Ratio 1.3 I & O for Last 24 hours: Intake & Output 01/25/25 01/26/25 01/27/25 01/28/25 23:59 23:59 23:59 23:59 Weight 130.181 kg Constitutional Constitutional: mild distress *Routine HEENT Exam Head: Present normocephalic and atraumatic Eye: Present EOMI and PERRL ENT: Present mucous membranes moist *Routine Neck Exam Neck: Present supple, full ROM and trachea midline *Routine Respiratory Exam Respiratory: Present wheezes *Routine Cardiovascular Exam Cardiovascular: Present RRR, Normal S1 and Normal S2 *Routine Abdominal Exam Abdominal: Present soft, normoactive bowel sounds and obese *Routine Rectal Exam Rectal:: deferred *Routine Genitalia Exam Genitalia:: deferred *Routine Extremities Exam Extremities: Present full ROM, pulses intact and normal capillary refill Routine Back/Spine/Pelvis Exam Back/Spine: Present full ROM *Routine Skin Exam Skin: Present intact, dry and warm *Routine Neurological Exam Neurological: Present alert, oriented X3, CN II-XII intact, moving all extremities and normal speech Routine Psychiatric Exam Psychiatric: Present normal affect, normal thought process, cooperative, good insight and good judgment H&P: Result Impressions 49-year-old male who presents with known coronary artery disease and prior abnormal stress test with persistent chest pain. Cardiology was consulted and plans for left heart cath in the a.m. Assessment and Plan *Assessment and plan (1) Unstable angina: Status: Acute Category: Medical Code(s): I20.0 - Unstable angina (2) Syncope: Status: Acute Qualifiers: Syncope type: unspecified Qualified Code(s): R55 - Syncope and collapse Category: Medical Code(s): R55 - Syncope and collapse (3) Leukocytosis: Status: Acute Qualifiers: Leukocytosis type: unspecified Qualified Code(s): D72.829 - Elevated white blood cell count, unspecified Category: Medical Code(s): D72.829 - Elevated white blood cell count, unspecified Plan Assessment: Unstable angina - Cardiology's consult is pending - Will make patient n.p.o. after midnight for planned left heart cath - Patient has been given loading dose of aspirin 324 mg - Patient received therapeutic dosing of enoxaparin Syncope - Will obtain 2D echo - Will consider carotid artery Doppler Leukocytosis - Currently there are no active signs of infection - Will obtain procalcitonin - The patient has any fever we will obtain blood cultures x 2 Plan: Admit patient to the MedSurg unit on telemetry Consult cardiology Cardiac diet N.p.o. after midnight CBC/CMP daily Magnesium in a.m. Will trend patient's troponin DuoNebs every 6 hours 40 mg Protonix p.o. daily 21 mg nicotine patch daily 4 mg of morphine IV push every 4 hours as needed severe pain Full code I have discussed this case with attending physician Dr. Bailey and I look forward to more input
[2025-01-28 19:13] LABS: Thyroid Stimulating Hormone 1.21 uIU/mL (0.465-4.68)
[2025-01-28 19:20] LABS: Hemoglobin A1C 4.8 % (4.0-6.0)
[2025-01-28] MEDS: MORPHINE 4MG/ML SYRINGE 4 MG IV (20:02)
[2025-01-28] MEDS: NICOTINE 21MG/24HR PATCH 21 MG TD (20:07)
[2025-01-28 21:42] LABS: Troponin I < 0.01 ng/ml (0.00-0.034)
[2025-01-28] MEDS: PANTOPRAZOLE 40MG TABLET 40 MG PO (21:59)
[2025-01-28] MEDS: GABAPENTIN 400MG CAPSULE 400 MG PO (21:59)
[2025-01-28] MEDS: METOPROLOL SUCCINATE XL 25MG TABLET 25 MG PO (21:59)
[2025-01-28] MEDS: RISPERIDONE 3 MG PO (22:00)
[2025-01-29] VITALS (18 sets, daily range): BP systolic 92–116; BP diastolic 58–76; PULSE 64–85; RESP 14–18; TEMP 36.4–36.6; O2SAT 90–97; BMI 40.1
[2025-01-29 00:03] LABS: Troponin I < 0.01 ng/ml (0.00-0.034)
[2025-01-29] MEDS: MORPHINE 4MG/ML SYRINGE 4 MG IV ×3 (00:45→10:21)
[2025-01-29] MEDS: IPRATROPIUM/ALBUTEROL 3 ML NEB IH ×2 (00:57→06:01)
--- NOTE | 2025-01-29 05:34 | PC.NURSE ---
New Admit. Sister at bedside. NPO at midnight. Possible heart cath today. Pt c/o chest pain, treated per DEC. Plan of care ongoing.
--- NOTE | 2025-01-29 06:03 | CA_ITS ---
APPROVED REPORT EXAM: Comprehensive 2D, Doppler, and color-flow Echocardiogram Paddle Dyeing Machine Operator: Alyssa Rivera RVT Ht: 5 ft 10 in Wt: 287lbs BSA: 2.43 BP: 101/56 mmHg Indications: ANGINA,CAD,HARSH,COPD,SOA,HTN,SYNCOPE 2D Dimensions LA Volume 47.10 mL LA Volume Index 19.30 mL/m2 (M/F) 16-34 M-Mode Dimensions RVDd 3.61 cm (0.9-2.6) LA Diam 4.00 cm (1.9-4.0) LVDd 4.45 cm (3.5-5.7) LVDs 2.72 cm (3.5-5.7) IVSd 1.83 cm (0.6-1.1) PWd 0.75 cm (0.6-1.1) EF (Teich) 69.50% FS 38.90% EDV (Teich) 90.10 mL TAPSE 2.58 (<1.7) ESV (Teich) 27.50 mL LV Diastology E Decel Time 257 (160-240 msec) E/A Ratio 0.9 Aortic Valve GERMAIN Index 2.92 cm2/m2 AoV Peak Moiz. 100.0 (50-130 cm/s) AO Peak GR. 4.00 mmHg AO Mean GR. 2.50 (<5 mmHg) AO VTI 18.9 (18-25 cm) GERMAIN (VTI) 7.27 (2.5-4.5 cm2) Mitral Valve MV E Max Moiz. 73.0 (40-130 cm/s) MV A Velocity 85.0 (40-130 cm/s) E/A Ratio 0.86 MV PHT 75.0 ms Pulmonary Valve PV Peak Velocity 78.0 (50-150 cm/s) Tricuspid Valve TR P. Velocity 204.00 cm/s RAP Estimate 10.00 mmHg RVSP 26.70 mmHg Left Ventricle The left ventricle is normal size. The left ventricular systolic function is normal. The left ventricular ejection fraction is within the normal range. There is increased LV wall thickness. There is normal LV segmental wall motion. The left ventricular diastolic function is normal. LVEF is 55%. Right Ventricle Right ventricle is mildly to moderately dilated. Right ventricle is mildly hypokinetic. Atria Left atrium is mildly dilated. Right atrium is mildly dilated. There is no Doppler evidence of interatrial shunt. Aortic Valve Aortic valve is mildly thickened. There is no aortic valvular stenosis. No aortic regurgitation is present. Mitral Valve The mitral valve is normal in structure. No evidence of mitral valve stenosis. Trace mitral regurgitation. Tricuspid Valve Tricuspid valve is grossly normal in structure and function. Trace tricuspid regurgitation. There is insufficient TR jet to estimate RVSP. Pulmonic Valve The pulmonary valve is normal in structure. Trace pulmonic regurgitation. Great Vessels The aortic root is normal in size. IVC is normal in size and collapses >50% with inspiration. Pericardium There is no pericardial effusion. An epicardial fat pad is present. Other Information Study Quality: Fair Conclusion Normal LV systolic function. Mild to moderate RV dilation with mild reduction in RV function. Mild biatrial dilation. No significant valvular stenosis or regurgitation. Electronically signed by : Christiana Cardoso MD 01/29/2025 09:44:13
[2025-01-29 06:12] LABS: Basophils # 0.1 K/mm3 (0-0.2); Basophils % 0.7 % (0.1-2.0); Eosinophils # 0.5 Kmm3 (0.0-0.4); Eosinophils % 5.7 % (0.1-12.0); Hematocrit 37.1 % (42.0-52.0); Hemoglobin 12.7 g/dL (14.1-18.0); Lymphocytes % 31.6 % (10-50); Mean Corpuscular HGB Conc 34.2 g/dL (31.8-35.4); Mean Corpuscular Hemoglobin 29.6 pg (27.0-31.2); Mean Corpuscular Volume 86.5 fl (80-94); Mean Platelet Volume 9.9 fl (7.4-10.4); Monocytes # 0.6 K/mm3 (0.1-1.0); Monocytes % 6.2 % (1.7-9.3); Neutrophils # 5.2 K/mm3 (1.8-7.8); Neutrophils % 55.4 % (37.0-80.0); Nucleated Red Blood Cells # 0 10^3/uL; Nucleated Red Blood Cells % 0 %; Platelet Count 230 K/mm3 (142-424); Red Blood Count 4.29 M/mm3 (4.60-6.20); Red Cell Distribution Width 13.3 % (11.5-17.5); Red Cell Distribution Width-SD 41.4 fL; White Blood Count 9.5 K/mm3 (4.8-10.8)
[2025-01-29 06:27] LABS: Albumin Level 3.6 g/dl (3.5-5.0); Chloride 106 mmol/L (98-107); Sodium 138 mmol/L (136-145)
[2025-01-29 06:30] LABS: Alanine Aminotransferase 15 U/L (12-78); Alkaline Phosphatase 66 U/L (38-126); Aspartate Amino Transferase 22 U/L (17-59); Bilirubin,Total 0.2 mg/dl (0.2-1.3); Blood Urea Nitrogen 10 mg/dl (9-20); Carbon Dioxide 25 mmol/L (22.0-30.0); Creatinine Clearance Estimated 71 mL/min (50-200); Estimated Glomerular Filt Rate 59 ml/min (>60); GFR (African American) 71 ML/MIN (>60)
[2025-01-29 06:31] LABS: Albumin/Globulin Ratio 1.3 (1.1-1.8); Calcium 8.6 mg/dl (8.4-10.2); Globulin 2.8 g/dL (1.3-3.2); Glucose 106 mg/dl (74-100); Total Protein,Serum 6.4 g/dl (6.3-8.2)
[2025-01-29 07:56] LABS: Procalcitonin 0.043 ng/mL (0.0-2.0)
--- NOTE | 2025-01-29 09:09 | IR_ITS ---
APPROVED REPORT Patient Location: Inpatient PROCEDURES Left heart catheterization Left ventriculogram Selective coronary angiogram INDICATION Unstable angina Informed consent was obtained prior to the procedure. COMPLICATIONS NONE Estimated Blood Loss: LESS THAN 10 ML TECHNIQUE One percent lidocaine used to anesthetize the right anterior aspect of the wrist. The right radial artery was accessed via the Seldinger technique. A 6 [place]ander sheath was placed in the right radial artery. 2.5 mg of Verapamil, 800 mcg of nitroglycerin, 1mg Lidocaine and 5000 U Heparin were given through the arterial sheath. The 6 [place] JL 3 guide catheter was also used to perform left heart catheterization, left ventriculogram and selective coronary angiogram. At the end of the procedure the sheath was removed good hemostasis was achieved using Traclet band, patient was transferred to the postop holding area in stable condition. ANGIOGRAPHIC RESULTS The left main artery Short and normal The left anterior descending artery Small and widely patent with mild 10% luminal regularities The circumflex artery Nondominant yet still large and normal The right coronary artery Large dominant with mild diffuse 10% luminal regularities The MCBRIDE ventriculogram reveals Horizontal heart with normal ejection fraction estimated at 65% The left ventricular end-diastolic pressure 20 mmHg IMPRESSION Mild nonocclusive coronary artery disease as described above Normal ejection fraction Mildly elevated LVEDP PLAN 1. Medical management Electronically signed by : Win Linares MD 01/29/2025 11:42:16
[2025-01-29] MEDS: FLUOXETINE 20MG CAPSULE 40 MG PO (09:22)
[2025-01-29] MEDS: METOPROLOL SUCCINATE XL 25MG TABLET 25 MG PO (09:22)
[2025-01-29] MEDS: ASPIRIN 81MG CHEWABLE TABLET 81 MG PO (09:23)
[2025-01-29] MEDS: risperiDONE 1MG TABLET 1.5 MG PO (09:23)
[2025-01-29] MEDS: GABAPENTIN 400MG CAPSULE 400 MG PO (09:24)
[2025-01-29] MEDS: FUROSEMIDE 40 MG TABLET PO (09:24)
[2025-01-29] MEDS: FLUTICASONE PROP 50MCG NASAL SPRAY 16GM 2 SPRAY NS (09:24)
[2025-01-29] MEDS: SPIRONOLACTONE 25MG TABLET 100 MG PO (09:24)
--- NOTE | 2025-01-29 09:45 | EXP.CARD.CON ---
History of Present Illness History of Present Illness Consult date: 01/29/25 Requesting physician: Mick Bailey Consult reason: chest pain Chief complaint: chest pain, syncope Additional Medical History:: 1. Tobacco use, up to 1 pack/day for 20 years, discontinued about 2017 2. History of anxiety and depression 3. History of peripheral neuropathy with difficulty walking 4. History of asthma 5. History of GERD A. Colonoscopy and EGD, 01/2023, colon polyps and Mcarthur's esophagus with gastritis 6. History of syncope, 2022 A. Event monitor showing PAC's and PVC's B. [place] due to hypotension 7. Obesity A. Wt loss of 30 lbs on wegovy 8. CAD A. [facility], 02/2020, moderate CAD of 2 mm diagonal artery, medical therapy B. [facility], 11/2020, Mild diffuse vascular ectasia, endothelial dysfunction, diastolic dysfunction with LVEDP of 30-35 mm Hg C. [facility]A, 2022, CAC 14 in RCA only. D. Arnaldo myoview, 01/2025, Small sized, moderate, reversible perfusion defect in the apical LV wall. Findings are suggestive of reversible ischemia.Gated imaging demonstrates normal global LV systolic function. LVEF is calculated at 71%. 9. HARSH A. CPAP History of present illness: This is a 49-year-old male who has a past medical history significant for impetigo, radiculopathy of the upper extremity, Mcarthur's esophagus, colonic polyp, testicular microlithiasis, unspecified congestive heart failure, hypertension, COPD, sleep apnea, asthma, tardive dyskinesia, dyspnea with exertion, depression, COVID-19 infection, allergic rhinitis, renal insufficiency, morbid obesity, obstructive sleep apnea, coronary artery disease, GERD, and anxiety who presents with a chief complaint of chest pain. Due to patient's symptoms, he presented to the emergency room for evaluation. While in the emergency room, chest x-ray is without any acute cardiopulmonary findings per my read. CTA of the chest, abdomen, and pelvis are negative for any intra or thoracic, cardiopulmonary, intra pelvis, intra-abdominal acute process per my read. Patient's case was discussed with cardiology and since patient had recent abnormal stress test, electrical systems design engineer recommended admission for potential left heart cath. As result of these recommendations, patient has been admitted for further management. During my evaluation of patient, patient states he has been having persistent chest pain rated 7 out of 10 midsternal without any radiation. Spouse at the bedside states patient had 2 episodes of syncope. EKG obtained was without any signs consistent with ischemia or infarction. Patient's most recent stress test performed on January 22 revealed small moderate reversible perfusion defect in apical LV. Patient did have oxygen saturations in the 90 percentile range. Patient is currently denying any lower extremity swelling, headache, blurry vision, double vision, PND, with apnea, nausea, vomiting, or diarrhea. Additional pertinent values obtained include a white blood cell count of 12.2, red blood cell count of 4.57, hemoglobin 13.4, hematocrit 39, blood glucose 121, and thus far troponin has been negative. The above per Navi Khalil APRN for the hospitalist service. Events above confirmed with patient. Proceed with left heart cath due to abnormal stress test. [facility] Disclaimer: The information contained in this section may have been updated after the patient was seen, as this information can be updated by other users. Medical History Nausea & vomiting Impetigo Knee pain Rib pain on right side Tobacco use Radiculopathy affecting upper extremity Neck pain Mcarthur esophagus Colonic polyp Testicular microlithiasis Low back pain Low back pain radiating to both legs CHF (congestive heart failure) HTN (hypertension) COPD (chronic obstructive pulmonary disease) Sleep apnea Asthma Tardive dyskinesia Stopped smoking with greater than 20 pack year history Allergic rhinitis Dyspnea on exertion Major depressive disorder COVID-19 Moderate persistent asthma Allergic rhinitis, unspecified Stopped smoking with greater than 15 pack year history Tobacco abuse disorder Dyspnea on exertion Encounter for pre-operative cardiovascular clearance Chest pain Hypokalemia COVID-19 virus infection Edema Renal insufficiency Dyspnea Morbid obesity due to excess calories History of hyperlipidemia HARSH (obstructive sleep apnea) CAD (coronary artery disease), cherokee coronary artery GERD (gastroesophageal reflux disease) Ex-smoker Obesity (BMI 30-39.9) Back pain Anxiety Surgical History History of surgery cyst on back removed History of colonoscopy History of cardiac cath History of appendectomy Family History Other Coronary artery disease Diabetes Hyperlipidemia Hypertension Social History (Updated 01/28/25 @ 20:00 by Lulú Thoreau, RN) Smoking Status: Current every day smoker tobacco type: cigarettes packs per day: 1 second hand exposure: No alcohol intake: never substance use type: denies use current occupational status: other Travel in the last 8 weeks: None household members: spouse housing: house lives independently: No marital status: number of children: 0 current occupational exposures/hazards: No caffeine: Yes do you feel safe at home: Yes victim of physical abuse: No victim of emotional abuse: No victim of sexual abuse: No would you like helpful sources: No Have you lived/traveled outside [place] in past 30 days?: No Contact w/someone who lives/traveled outside [place] past 30 days?: No Exposure to someone with infectious disease in past 14 days?: No Do you have a fever (greater than 100.4 F or 38 C)?: No Have you tested positive for COVID-19: No Exposed to someone with COVID-19 in past 14 days?: No Do you have a sore throat?: No Do you have a cough?: No Do you have any weakness?: No Do you have any diarrhea?: No Are you experiencing any unusual bleeding?: No Do you have any muscle aches/pain?: No Do you have any abdominal pain?: No Are you experiencing loss of taste or smell?: No Review of Systems Review of Systems Review of systems:: pertinent systems reviewed and negative unless documented below *Cardiovascular Cardiovascular: Reports chest pain *Neurologic Neurologic: Reports system reviewed and no additional complaints, except as documented Exam Data for Last 24 hours Vital signs and Labs for Last 24 Hours: Temp Pulse Resp BP Pulse Ox O2 Del Method O2 Flow Rate 97.6 F 69 18 116/58 L 94 L Room Air 2 01/29/25 07:52 01/29/25 07:52 01/29/25 07:52 01/29/25 07:52 01/29/25 07:52 01/29/25 07:52 01/29/25 02:23 Laboratory Results - last 24 hr 01/28/25 17:12: POC Glucose 119 H 01/28/25 17:18: WBC 12.2 H, RBC 4.57 L, Hgb 13.4 L, Hct 39.0 L, MCV 85.3, MCH 29.3, MCHC 34.4, RDW 13.2, Plt Count 274, MPV 9.9, Neut % (Auto) 65.6, Lymph % (Auto) 23.5, Cobb % (Auto) 5.4, Eos % (Auto) 4.4, Baso % (Auto) 0.7, Neut # (Auto) 8.0 H, Lymph # (Auto) 2.9, Cobb # (Auto) 0.7, Eos # (Auto) 0.5 H, Baso # (Auto) 0.1, Sodium 137, Potassium 3.8, Chloride 103, Carbon Dioxide 23, Anion Gap 14.8, BUN 9, Creatinine 1.20, Estimated Creat Clear 137, Estimated GFR 64, Est GFR ( Amer) 78, Glucose 121 H, Hemoglobin A1c 4.8, Calcium 8.9, Total Bilirubin 0.4, AST 24, ALT 20, Alkaline Phosphatase 69, Troponin I < 0.01, NT-Pro-B Natriuret Pep 20.1, Total Protein 7.2, Albumin 4.0, Globulin 3.2, Albumin/Globulin Ratio 1.3, TSH 1.21 01/28/25 20:56: Troponin I < 0.01 01/28/25 23:32: Troponin I < 0.01 01/29/25 05:40: WBC 9.5, RBC 4.29 L, Hgb 12.7 L, Hct 37.1 L, MCV 86.5, MCH 29.6, MCHC 34.2, RDW 13.3, Plt Count 230, MPV 9.9, Neut % (Auto) 55.4, Lymph % (Auto) 31.6, Cobb % (Auto) 6.2, Eos % (Auto) 5.7, Baso % (Auto) 0.7, Neut # (Auto) 5.2, Lymph # (Auto) 3.0, Cobb # (Auto) 0.6, Eos # (Auto) 0.5 H, Baso # (Auto) 0.1, Sodium 138, Potassium 4.0, Chloride 106, Carbon Dioxide 25, Anion Gap 11.0, BUN 10, Creatinine 1.30 H, Estimated Creat Clear 71, Estimated GFR 59, Est GFR ( Amer) 71, Glucose 106 H, Calcium 8.6, Magnesium 2.0, Total Bilirubin 0.2, AST 22, ALT 15, Alkaline Phosphatase 66, Total Protein 6.4, Albumin 3.6, Globulin 2.8, Albumin/Globulin Ratio 1.3, Procalcitonin 0.043 I & O for Last 24 hours: Intake & Output 01/26/25 01/27/25 01/28/25 01/29/25 11:59 11:59 11:59 11:59 Intake Total 1200 / 1200 Output Total 250 / 250 Balance 950 / 950 Weight 286 lb 15.999 oz Constitutional Constitutional: no acute distress *Routine Respiratory Exam Respiratory: Present decreased breath sounds; Absent wheezes *Routine Cardiovascular Exam Cardiovascular: Present RRR Meds Home Medications and Allergies Home Medications ?Medication ?Instructions ?Recorded ?Confirmed ?Type aspirin 81 mg chewable tablet 81 mg PO DAILY Heart disease #90 04/25/22 01/28/25 Rx tabs fluticasone propionate 50 2 spray intranasal DAILY allergies 04/27/23 01/28/25 Rx mcg/actuation nasal #9.9 mL spray,suspension furosemide 40 mg tablet 40 mg PO DAILY 08/06/24 01/28/25 History gabapentin 400 mg capsule 400 mg PO TID #90 caps 12/15/24 01/28/25 Rx omeprazole 40 mg capsule,delayed 40 mg PO DAILY #30 caps 01/01/25 01/28/25 Rx release hydroxyzine HCl 25 mg tablet 25 mg PO TID PRN anxiety #60 tabs 01/19/25 01/28/25 Rx semaglutide (weight loss) 2.4 2.4 mg (0.75 mL) SQ WEEKLY #3 mL 01/22/25 01/28/25 Rx mg/0.75 mL subcutaneous pen injector (Wederianvy) metoprolol succinate 25 mg 25 mg PO DAILY 01/28/25 01/29/25 History tablet,extended release 24 hr (Toprol XL) polyethylene glycol 3350 17 gram 17 g PO NEEDED PRN bowels 01/28/25 01/28/25 History oral powder packet (Miralax) albuterol sulfate 90 mcg/actuation 2 puff inhalation Q6HP PRN Wheezing 01/29/25 01/29/25 History aerosol inhaler atorvastatin 40 mg tablet 40 mg PO HS 01/29/25 01/29/25 History fluoxetine 40 mg capsule 40 mg PO DAILY 01/29/25 01/29/25 History risperidone 3 mg tablet 1.5 mg PO BID 01/29/25 01/29/25 History spironolactone 100 mg tablet 100 mg PO DAILY 01/29/25 01/29/25 History trazodone 100 mg tablet 100 mg PO HSP PRN Sleep 01/29/25 01/29/25 History New Prescriptions to Start Prescriptions: Allergies Allergy/AdvReac Type Severity Reaction Status Date / Time No Known Allergies Allergy Verified 01/19/25 10:25 Assessment and Plan *Assessment and plan (1) Unstable angina: Status: Acute Category: Medical Code(s): I20.0 - Unstable angina (2) Syncope: Status: Acute Qualifiers: Syncope type: unspecified Qualified Code(s): R55 - Syncope and collapse Category: Medical Code(s): R55 - Syncope and collapse (3) CAD (coronary artery disease), [place] coronary artery: Status: Chronic Qualifiers: Associated angina: without angina [place] vs. transplanted heart: [place] heart Qualified Code(s): I25.10 - Atherosclerotic heart disease of [place] coronary artery without angina pectoris Category: Medical Code(s): I25.10 - Atherosclerotic heart disease of [place] coronary artery without angina pectoris (4) HTN (hypertension): Status: Acute Qualifiers: Hypertension type: primary hypertension Qualified Code(s): I10 - Essential (primary) hypertension Category: Medical Code(s): I10 - Essential (primary) hypertension (5) HLD (hyperlipidemia): Status: Chronic Qualifiers: Hyperlipidemia type: mixed hyperlipidemia Qualified Code(s): E78.2 - Mixed hyperlipidemia Category: Medical Code(s): E78.5 - Hyperlipidemia, unspecified (6) Morbid obesity due to excess calories: Status: Chronic Category: Medical Code(s): E66.01 - Morbid (severe) obesity due to excess calories (7) Mcarthur esophagus: Status: Acute Qualifiers: Mcarthur's esophagus type: with dysplasia of unspecified degree Qualified Code(s): K22.719 - Mcarthur's esophagus with dysplasia, unspecified Category: Medical Code(s): K22.70 - Mcarthur's esophagus without dysplasia (8) Depression with anxiety: Status: Acute Category: Medical Code(s): F41.8 - Other specified anxiety disorders Plan 1. Unstable angina -normal troponins -abnormal stress test earlier this month -plan [facility] today -continue ASA 2. Syncope -history of similar events with low BP after wt loss on wegovy -now with low BP again -monitor on telemetry for arrhythmias -2 wk event monitor at discharge 3. CAD -on ASA 4. HTN -well controlled/borderline low 5. HLD -on atorvastatin 6. Obesity -on wegovy and losing wt 7. Mcarthur's esophagus -on PPI LHC today showed mild, non-occlusive CAD. Normal LVEDP and LVEF. Stop metoprolol due to syncope and low BP. OK for discharge home from Cardiology standpoint. 2 week event monitor Home meds: ASA 81 mg daily Furosemide 40 mg daily Spironolactone 100 mg daily atorvastatin 40 mg daily
[2025-01-29] MEDS: HEPARIN 1,000 UNITS/ML 10ML VIAL (CATH LAB) 5000 UNIT IV (10:57)
[2025-01-29] MEDS: VERAPAMIL 2.5MG/ML 2ML VIAL 2.5 MG IV (10:57)
[2025-01-29] MEDS: LIDOCAINE 1% 10ML MDV 10 ML IJ (10:57)
[2025-01-29] MEDS: diphenhydrAMINE 50MG/ML VIAL 50 MG IV (10:57)
[2025-01-29] MEDS: NITROGLYCERIN 800MCG/8ML SYR (CATH LAB) 800 MCG IA (10:58)
[2025-01-29] MEDS: FENTANYL 100MCG/2ML VIAL 50 MCG IV (10:58)
[2025-01-29] MEDS: MIDAZOLAM HCL 1MG/ML 5ML VIAL 1 MG IV (10:58)
[2025-01-29] MEDS: 0.9 % SODIUM CHLORIDE 500 ML 25 ML IV (10:58)
[2025-01-29] MEDS: HEPARIN 1,000 UNITS/500ML NS (CATH LAB) 3000 UNIT IV (10:58)
--- NOTE | 2025-01-29 12:21 | EXP.DC.SUM ---
General Admission date:: 01/28/25 Discharge date: 01/29/25 HPI HPI HPI: This is a 49-year-old male who has a past medical history significant for impetigo, radiculopathy of the upper extremity, Mcarthur's esophagus, colonic polyp, testicular microlithiasis, unspecified congestive heart failure, hypertension, COPD, sleep apnea, asthma, tardive dyskinesia, dyspnea with exertion, depression, COVID-19 infection, allergic rhinitis, renal insufficiency, morbid obesity, obstructive sleep apnea, coronary artery disease, GERD, and anxiety who presents with a chief complaint of chest pain. Due to patient's symptoms, he presented to the emergency room for evaluation. While in the emergency room, chest x-ray is without any acute cardiopulmonary findings per my read. CTA of the chest, abdomen, and pelvis are negative for any intra or thoracic, cardiopulmonary, intra pelvis, intra-abdominal acute process per my read. Patient's case was discussed with cardiology and since patient had recent abnormal stress test, legal consultant recommended admission for potential left heart cath. As result of these recommendations, patient has been admitted for further management. During my evaluation of patient, patient states he has been having persistent chest pain rated 7 out of 10 midsternal without any radiation. Spouse at the bedside states patient had 2 episodes of syncope. EKG obtained was without any signs consistent with ischemia or infarction. Patient's most recent stress test performed on January 22 revealed small moderate reversible perfusion defect in apical LV. Patient did have oxygen saturations in the 90 percentile range. Patient is currently denying any lower extremity swelling, headache, blurry vision, double vision, PND, with apnea, nausea, vomiting, or diarrhea. Additional pertinent values obtained include a white blood cell count of 12.2, red blood cell count of 4.57, hemoglobin 13.4, hematocrit 39, blood glucose 121, and thus far troponin has been negative. Hospital Course Hospital Course Hospital Course: 49-year-old male who presented with chest pain. Had an abnormal stress test earlier in the month. Admitted for serial troponins and cardiology consult. Left heart cath performed with no flow-limiting lesions. Had mild nonocclusive CAD. Recommend workup as an outpatient for further etiologies of chest pain. Stable at this time to discharge home for further management. Problems addressed as follows: Unstable angina versus noncardiac chest pain CAD Hypertension -Admitted overnight. Serial troponins were negative. Had an abnormal stress test earlier in the month. Cardiology was consulted, was taken for left heart cath which showed mild nonocclusive CAD. Had normal LVEDP and EF. Patient was having low blood pressure. Adjustments made to home meds including stopping his metoprolol. Continue aspirin 81 mg daily. Continue Lasix 40 mg daily and spironolactone 100 mg daily. Continue Lipitor 40 mg daily for CAD/hyperlipidemia. - Kidney function normal with BUN 10, creatinine 1.3, potassium 4.0 and magnesium 2.0. Patient has had some syncopal events. Likely due to low blood pressure weight loss especially after starting Wegovy. Event monitor placed prior to discharge to monitor for arrhythmias. Follow-up with cardiology. Morbid obesity: Continue Wegovy. Encouraged weight loss with dietary changes. Continue PPI for Mcarthur's esophagus Stable to discharge home total time spent on discharge 32 minutes in counseling, documentation, chart review, and direct care with patient. Exam Data for Last 24 hours Vital signs and Labs for Last 24 Hours: Temp Pulse Resp BP Pulse Ox O2 Del Method O2 Flow Rate 97.6 F 65 16 105/60 L 91 L Room Air 2 01/29/25 07:52 01/29/25 12:10 01/29/25 12:10 01/29/25 12:10 01/29/25 12:10 01/29/25 12:10 01/29/25 02:23 Laboratory Results - last 24 hr 01/28/25 17:12: POC Glucose 119 H 01/28/25 17:18: WBC 12.2 H, RBC 4.57 L, Hgb 13.4 L, Hct 39.0 L, MCV 85.3, MCH 29.3, MCHC 34.4, RDW 13.2, Plt Count 274, MPV 9.9, Neut % (Auto) 65.6, Lymph % (Auto) 23.5, [place] % (Auto) 5.4, Eos % (Auto) 4.4, Baso % (Auto) 0.7, Neut # (Auto) 8.0 H, Lymph # (Auto) 2.9, [place] # (Auto) 0.7, Eos # (Auto) 0.5 H, Baso # (Auto) 0.1, Sodium 137, Potassium 3.8, Chloride 103, Carbon Dioxide 23, Anion Gap 14.8, BUN 9, Creatinine 1.20, Estimated Creat Clear 137, Estimated GFR 64, Est GFR ( Amer) 78, Glucose 121 H, Hemoglobin A1c 4.8, Calcium 8.9, Total Bilirubin 0.4, AST 24, ALT 20, Alkaline Phosphatase 69, Troponin I < 0.01, NT-Pro-B Natriuret Pep 20.1, Total Protein 7.2, Albumin 4.0, Globulin 3.2, Albumin/Globulin Ratio 1.3, TSH 1.21 01/28/25 20:56: Troponin I < 0.01 01/28/25 23:32: Troponin I < 0.01 01/29/25 05:40: WBC 9.5, RBC 4.29 L, Hgb 12.7 L, Hct 37.1 L, MCV 86.5, MCH 29.6, MCHC 34.2, RDW 13.3, Plt Count 230, MPV 9.9, Neut % (Auto) 55.4, Lymph % (Auto) 31.6, [place] % (Auto) 6.2, Eos % (Auto) 5.7, Baso % (Auto) 0.7, Neut # (Auto) 5.2, Lymph # (Auto) 3.0, [place] # (Auto) 0.6, Eos # (Auto) 0.5 H, Baso # (Auto) 0.1, Sodium 138, Potassium 4.0, Chloride 106, Carbon Dioxide 25, Anion Gap 11.0, BUN 10, Creatinine 1.30 H, Estimated Creat Clear 71, Estimated GFR 59, Est GFR ( Amer) 71, Glucose 106 H, Calcium 8.6, Magnesium 2.0, Total Bilirubin 0.2, AST 22, ALT 15, Alkaline Phosphatase 66, Total Protein 6.4, Albumin 3.6, Globulin 2.8, Albumin/Globulin Ratio 1.3, Procalcitonin 0.043 I & O for Last 24 hours: Intake & Output 01/26/25 01/27/25 01/28/25 01/29/25 23:59 23:59 23:59 23:59 Intake Total 1200 / 1200 Output Total 0 / 0 250 / 250 Balance 0 / 1200 950 / 950 Weight 130.181 kg 130.181 kg Constitutional Constitutional: no acute distress, morbidly obese, chronically ill appearing and cooperative *Routine HEENT Exam Head: Present normocephalic Eye: Present EOMI and PERRL ENT: Present mucous membranes moist Comments: Edentulous *Routine Neck Exam Neck: Present supple; Absent lymphadenopathy Routine Chest/Breast/Axilla Exam Chest wall: Absent tenderness *Routine Respiratory Exam Respiratory: Present CTA bilaterally; Absent rhonchi, wheezes or crackles *Routine Cardiovascular Exam Cardiovascular: Present RRR *Routine Abdominal Exam Abdominal: Present soft and normoactive bowel sounds; Absent tenderness *Routine Rectal Exam Patient deferred: visual exam *Routine Exam Patient deferred: penile exam *Routine Extremities Exam Extremities: Absent cyanosis, clubbing or edema *Routine Skin Exam Skin: Present warm; Absent rash *Routine Neurological Exam Neurological: Present alert, oriented X3 and moving all extremities; Absent altered mental status Results Data Completed and Pending Labs on day of discharge: Labs from last 24 hours 01/29/25 01/28/25 01/28/25 05:40 23:32 20:56 WBC 9.5 RBC 4.29 L Hgb 12.7 L Hct 37.1 L MCV 86.5 MCH 29.6 MCHC 34.2 RDW 13.3 Plt Count 230 MPV 9.9 Neut % (Auto) 55.4 Lymph % (Auto) 31.6 [place] % (Auto) 6.2 Eos % (Auto) 5.7 Baso % (Auto) 0.7 Neut # (Auto) 5.2 Lymph # (Auto) 3.0 [place] # (Auto) 0.6 Eos # (Auto) 0.5 H Baso # (Auto) 0.1 Sodium 138 Potassium 4.0 Chloride 106 Carbon Dioxide 25 Anion Gap 11.0 BUN 10 Creatinine 1.30 H Estimated Creat Clear 71 Estimated GFR 59 Est GFR ( Amer) 71 Glucose 106 H POC Glucose Hemoglobin A1c Calcium 8.6 Magnesium 2.0 Total Bilirubin 0.2 AST 22 ALT 15 Alkaline Phosphatase 66 Troponin I < 0.01 < 0.01 NT-Pro-B Natriuret Pep Total Protein 6.4 Albumin 3.6 Globulin 2.8 Albumin/Globulin Ratio 1.3 Procalcitonin 0.043 TSH 01/28/25 01/28/25 17:18 17:12 WBC 12.2 H RBC 4.57 L Hgb 13.4 L Hct 39.0 L MCV 85.3 MCH 29.3 MCHC 34.4 RDW 13.2 Plt Count 274 MPV 9.9 Neut % (Auto) 65.6 Lymph % (Auto) 23.5 [place] % (Auto) 5.4 Eos % (Auto) 4.4 Baso % (Auto) 0.7 Neut # (Auto) 8.0 H Lymph # (Auto) 2.9 [place] # (Auto) 0.7 Eos # (Auto) 0.5 H Baso # (Auto) 0.1 Sodium 137 Potassium 3.8 Chloride 103 Carbon Dioxide 23 Anion Gap 14.8 BUN 9 Creatinine 1.20 Estimated Creat Clear 137 Estimated GFR 64 Est GFR ( Amer) 78 Glucose 121 H POC Glucose 119 H Hemoglobin A1c 4.8 Calcium 8.9 Magnesium Total Bilirubin 0.4 AST 24 ALT 20 Alkaline Phosphatase 69 Troponin I < 0.01 NT-Pro-B Natriuret Pep 20.1 Total Protein 7.2 Albumin 4.0 Globulin 3.2 Albumin/Globulin Ratio 1.3 Procalcitonin TSH 1.21 DS: Diagnosis Discharge Diagnosis (1) Unstable angina: Status: Acute Code(s): I20.0 - Unstable angina (2) Syncope: Status: Acute Code(s): R55 - Syncope and collapse Qualifiers: Syncope type: unspecified Qualified Code(s): R55 - Syncope and collapse (3) CAD (coronary artery disease), [place] coronary artery: Status: Chronic Code(s): I25.10 - Atherosclerotic heart disease of [place] coronary artery without angina pectoris Qualifiers: Associated angina: without angina [place] vs. transplanted heart: [place] heart Qualified Code(s): I25.10 - Atherosclerotic heart disease of [place] coronary artery without angina pectoris (4) HTN (hypertension): Status: Acute Code(s): I10 - Essential (primary) hypertension Qualifiers: Hypertension type: primary hypertension Qualified Code(s): I10 - Essential (primary) hypertension (5) HLD (hyperlipidemia): Status: Chronic Code(s): E78.5 - Hyperlipidemia, unspecified Qualifiers: Hyperlipidemia type: mixed hyperlipidemia Qualified Code(s): E78.2 - Mixed hyperlipidemia (6) Morbid obesity due to excess calories: Status: Chronic Code(s): E66.01 - Morbid (severe) obesity due to excess calories (7) Mcarthur esophagus: Status: Acute Code(s): K22.70 - Mcarthur's esophagus without dysplasia Qualifiers: Mcarthur's esophagus type: with dysplasia of unspecified degree Qualified Code(s): K22.719 - Mcarthur's esophagus with dysplasia, unspecified (8) Depression with anxiety: Status: Acute Code(s): F41.8 - Other specified anxiety disorders Meds Home Medications and Allergies Home Medications ?Medication ?Instructions ?Recorded ?Confirmed ?Type aspirin 81 mg chewable tablet 81 mg PO DAILY Heart disease #90 04/25/22 01/28/25 Rx tabs fluticasone propionate 50 2 spray intranasal DAILY allergies 04/27/23 01/28/25 Rx mcg/actuation nasal #9.9 mL spray,suspension furosemide 40 mg tablet 40 mg PO DAILY 08/06/24 01/28/25 History gabapentin 400 mg capsule 400 mg PO TID #90 caps 12/15/24 01/28/25 Rx omeprazole 40 mg capsule,delayed 40 mg PO DAILY #30 caps 01/01/25 01/28/25 Rx release hydroxyzine HCl 25 mg tablet 25 mg PO TID PRN anxiety #60 tabs 01/19/25 01/28/25 Rx semaglutide (weight loss) 2.4 2.4 mg (0.75 mL) SQ WEEKLY #3 mL 01/22/25 01/28/25 Rx mg/0.75 mL subcutaneous pen injector (Wegovy) polyethylene glycol 3350 17 gram 17 g PO NEEDED PRN bowels 01/28/25 01/28/25 History oral powder packet (Miralax) albuterol sulfate 90 mcg/actuation 2 puff inhalation Q6HP PRN Wheezing 01/29/25 01/29/25 History aerosol inhaler atorvastatin 40 mg tablet 40 mg PO HS 01/29/25 01/29/25 History fluoxetine 40 mg capsule 40 mg PO DAILY 01/29/25 01/29/25 History nicotine 21 mg/24 hr daily 21 mg transdermal DAILY #28 ea 01/29/25 Rx transdermal patch risperidone 3 mg tablet 1.5 mg PO BID 01/29/25 01/29/25 History spironolactone 100 mg tablet 100 mg PO DAILY 01/29/25 01/29/25 History trazodone 100 mg tablet 100 mg PO HSP PRN Sleep 01/29/25 01/29/25 History New Prescriptions to Start Prescriptions: Mick Mendosa Allergies Allergy/AdvReac Type Severity Reaction Status Date / Time No Known Allergies Allergy Verified 01/19/25 10:25 Discharge Plan Disposition Patient Disposition: Home, Self-Care Condition: Fair Follow up Plan Follow up with: Samir Cardoso MD [Staff Physician] - 02/05/25 1:30 pm Prescriptions/Medication Reconciliation: New nicotine 21 mg/24 hr Patch 24 Hour 21 mg transdermal DAILY Qty: 28 2RF Continued aspirin 81 mg tablet,chewable 81 mg PO DAILY Qty: 90 2RF fluticasone propionate 50 mcg/actuation spray,suspension 2 spray INTRANASAL DAILY Qty: 9.9 2RF hydroxyzine HCl 25 mg tablet 25 mg PO TID PRN (Reason: anxiety) Qty: 60 1RF gabapentin 400 mg capsule 400 mg PO TID Qty: 90 1RF omeprazole 40 mg capsule,delayed release(DR/EC) 40 mg PO DAILY Qty: 30 2RF Patient Comments: TAKE 1 CAPSULE BY MOUTH ONCE DAILY FOR GERD Wegovy 2.4 mg/0.75 mL pen injector 2.4 mg SQ WEEKLY Qty: 3 3RF polyethylene glycol 3350 [Miralax] 17 gram powder in packet 17 g PO NEEDED PRN (Reason: bowels) risperidone 3 mg tablet 1.5 mg PO BID Patient Comments: TAKE 1/2 (ONE-HALF) TABLET BY MOUTH TWICE DAILY albuterol sulfate 90 mcg/actuation HFA aerosol inhaler 2 puff INHALATION Q6HP PRN (Reason: Wheezing) Patient Comments: INHALE 2 PUFFS BY MOUTH EVERY 6 HOURS NEEDED FOR SHORTNESS OF BREATH AND FOR WHEEZING fluoxetine 40 mg capsule 40 mg PO DAILY atorvastatin 40 mg tablet 40 mg PO HS spironolactone 100 mg tablet 100 mg PO DAILY Patient Comments: TAKE 1 TABLET BY MOUTH ONCE DAILY FOR FLUID trazodone 100 mg tablet 100 mg PO HSP PRN (Reason: Sleep) furosemide 40 mg tablet 40 mg PO DAILY Patient Comments: TAKE 1 & 1/2 (ONE & ONE-HALF) TABLETS BY MOUTH ONCE DAILY FOR CARDIAC Discontinued metoprolol succinate [Toprol XL] 25 mg tablet extended release 24 hr 25 mg PO DAILY Problem Reconciliation Problems Reviewed?: Yes Patient Discharge Instructions ACTIVITY: Continue current activity DIET: continue same diet Patient Instructions: Angina, DI for Cardiac Catheterization, DI for Surgical Site Infection, Stop Light Pneumonia, Stop Light Heart Failure Print Language: Wolof Providers Primary Care Provider: Provider,Referral Admit Provider: Mick Bailey Attending Provider: Mick Bailey
[2025-01-29] MEDS: IOPAMIDOL-370 (76%);100ML BOTTLE 72 ML IV (12:56)
[2025-01-29] MEDS: NICOTINE 21MG/24HR PATCH 21 MG TD (15:41)
--- NOTE | 2025-01-30 10:13 | SW/DCPLANNER ---
Spoke with patient on the phone. Patient stated that he is doing very well. Patient stated that the bandage where they wrapped his arm is swelling a little and i suggest that he may nee to loosen the bandage and if that doesnt help then to call his PCP or come to the ER. Patient stated that he hasnt picked up his new medicine yet but plans on getting it today. Patient stated that he is aware of his upcoming appointment. Patient denies any concerns or questions at this time. Lucas Martínez
== END 2025-01-29 16:17 | disposition home or self-care (01) ==
LOC: ER 17:20 → 2ND 18:41
PROVIDERS: Internal Medicine; Nurse Practitioner Family; Admitting Provider Internal Medicine Adolescent Medicine; Emergency Provider Student in an Organized Health Care Education/Training Program; Visit Provider Internal Medicine Adolescent Medicine
DX: I25.110 Atherosclerotic heart disease of native coronary artery with unstable angina pectoris (principal); R55 Syncope and collapse; D72.829 Elevated white blood cell count, unspecified; F17.210 Nicotine dependence, cigarettes, uncomplicated; K22.70 Barrett's esophagus without dysplasia; G47.33 Obstructive sleep apnea (adult) (pediatric); E66.01 Morbid (severe) obesity due to excess calories; E78.5 Hyperlipidemia, unspecified; I11.0 Hypertensive heart disease with heart failure; K21.9 Gastro-esophageal reflux disease without esophagitis; J44.9 Chronic obstructive pulmonary disease, unspecified; K22.719 Barrett's esophagus with dysplasia, unspecified; I50.32 Chronic diastolic (congestive) heart failure; Z82.49 Family history of ischemic heart disease and other diseases of the circulatory system; Z83.438 Family history of other disorder of lipoprotein metabolism and other lipidemia; Z83.3 Family history of diabetes mellitus; Z71.3 Dietary counseling and surveillance; Z68.41 Body mass index [BMI] 40.0-44.9, adult; Z79.82 Long term (current) use of aspirin; Z79.51 Long term (current) use of inhaled steroids; Z79.899 Other long term (current) drug therapy
CPT/HCPCS: 36415; 71045; 71275; 74174; 80053; 82962; 83036; 83735; 83880; 84145; 84443; 84484; 85025; 93005; 93270; 93306; 93458; 94640; 99152; 99285; C1725; C1769; G0378; J1200; J1644; J1650; J2250; J2270; J3010; J7620; Q9967

== ENCOUNTER 2025-04-09 09:03 | Day surgery (SDC) | payer MEDICARE, OTHER, SELFPAY ==
[2025-04-02 08:48] VITALS: BMI 41.3
[2025-04-09 09:36] VITALS: BP 121/74; PULSE 84; RESP 16; TEMP 36.2; O2SAT 93
[2025-04-09] MEDS: LACTATED RINGERS 1000ML 1,000 ML 50 ML IV (09:42)
--- NOTE | 2025-04-09 09:51 | P.PNANES_ITS ---
[facility] Disclaimer: The information contained in this section may have been updated after the patient was seen, as this information can be updated by other users. Medical History Preop examination Sore throat TIA (transient ischemic attack) Cannot exclude TIA, even though unlikely. [facility] evaluation 05/28/23 and 05/30/23, (05/28/23 left arm tingling, left leg weakness, knee pain), (05/30/23, left chest pain pain radiating to his left shoulder, chronic leg pain and limping due to knee osteoarthritis CT head, CTA head and neck, CTA chest NSD. Unreliable informant, poor compliance with CPAP an multiple CV risk factors. Nausea & vomiting Impetigo Knee pain Rib pain on right side Tobacco use Radiculopathy affecting upper extremity Neck pain Mcarthur esophagus Colonic polyp Testicular microlithiasis Low back pain Low back pain radiating to both legs CHF (congestive heart failure) HTN (hypertension) COPD (chronic obstructive pulmonary disease) Sleep apnea Asthma Tardive dyskinesia Stopped smoking with greater than 20 pack year history Allergic rhinitis Dyspnea on exertion Major depressive disorder COVID-19 Moderate persistent asthma Allergic rhinitis, unspecified Stopped smoking with greater than 15 pack year history Tobacco abuse disorder Dyspnea on exertion Encounter for pre-operative cardiovascular clearance Chest pain Hypokalemia COVID-19 virus infection Edema Renal insufficiency Dyspnea Morbid obesity due to excess calories History of hyperlipidemia HARSH (obstructive sleep apnea) CAD (coronary artery disease), [place] coronary artery GERD (gastroesophageal reflux disease) Ex-smoker Obesity (BMI 30-39.9) Back pain Anxiety Surgical History History of surgery cyst on back removed History of colonoscopy History of cardiac cath History of appendectomy Family History Other Coronary artery disease Diabetes Hyperlipidemia Hypertension Social History Smoking Status: Current every day smoker tobacco type: cigarettes packs per day: 1 second hand exposure: No alcohol intake: never substance use type: denies use current occupational status: disabled Travel in the last 8 weeks?: None household members: spouse housing: house lives independently: No marital status: number of children: 0 current occupational exposures/hazards: No caffeine: No do you feel safe at home: Yes victim of physical abuse: No victim of emotional abuse: No victim of sexual abuse: No would you like helpful sources: No Have you lived/traveled outside [place] in past 30 days?: No Contact w/someone who lives/traveled outside [place] past 30 days?: No Exposure to someone with infectious disease in past 14 days?: No Do you have a fever (greater than 100.4 F or 38 C)?: No Have you tested positive for COVID-19?: No Exposed to someone with COVID-19 in past 14 days?: No Do you have a sore throat?: No Do you have a cough?: No Do you have any weakness?: No Do you have any diarrhea?: No Are you experiencing any unusual bleeding?: No Do you have any muscle aches/pain?: No Do you have any abdominal pain?: No Are you experiencing loss of taste or smell?: No [facility] Anesthesia Checklist Patient Identification Patient Identification: Arm Band Structural Data Admitted From: Home Planned Operative Procedure/s: EGD Consent for Planned Operative Procedure(s) Verified: Yes Verified Documents: Surgical Consent and History and Physical NPO Status Verified Time NPO: 00:00 Additional verifications Anesthesia Reactions: No Hx Blood Transfusions: No Blood Transfusion Reaction: No Airway Assessment Mallampati Score:: Class II C-Spine Mobility Assessed: Yes TMJ Mobility Assessed: Yes Dentition: Edentulous Neurological Assessment Level of Consciousness: Awake, Alert and Appropriate Anesthesia Plan Anesthesia Risk discussed: Yes Anesthesia Plan: Verified ASA Class: III Anesthesia Type: MAC
--- NOTE | 2025-04-09 09:56 | EXP.HP ---
History of Present Illness *Admission Date: 04/09/25 *History of present illness: Mr. Acuna is a 50-year-old gentleman who is here for diagnostic EGD secondary to postprandial nausea and vomiting. He has been on omeprazole daily. He does get heartburn and reflux with breakthrough on pantoprazole he has excessive bloating, belching and gassiness. The examination is deemed medically necessary for diagnostic EGD. The patient has been seen, interviewed and examined prior to the procedure by both myself and the anesthesia provider. [facility] Disclaimer: The information contained in this section may have been updated after the patient was seen, as this information can be updated by other users. Medical History Preop examination Sore throat TIA (transient ischemic attack) Cannot exclude TIA, even though unlikely. [facility] evaluation 05/28/23 and 05/30/23, (05/28/23 left arm tingling, left leg weakness, knee pain), (05/30/23, left chest pain pain radiating to his left shoulder, chronic leg pain and limping due to knee osteoarthritis CT head, CTA head and neck, CTA chest NSD. Unreliable informant, poor compliance with CPAP an multiple CV risk factors. Nausea & vomiting Impetigo Knee pain Rib pain on right side Tobacco use Radiculopathy affecting upper extremity Neck pain Mcarthur esophagus Colonic polyp Testicular microlithiasis Low back pain Low back pain radiating to both legs CHF (congestive heart failure) HTN (hypertension) COPD (chronic obstructive pulmonary disease) Sleep apnea Asthma Tardive dyskinesia Stopped smoking with greater than 20 pack year history Allergic rhinitis Dyspnea on exertion Major depressive disorder COVID-19 Moderate persistent asthma Allergic rhinitis, unspecified Stopped smoking with greater than 15 pack year history Tobacco abuse disorder Dyspnea on exertion Encounter for pre-operative cardiovascular clearance Chest pain Hypokalemia COVID-19 virus infection Edema Renal insufficiency Dyspnea Morbid obesity due to excess calories History of hyperlipidemia HARSH (obstructive sleep apnea) CAD (coronary artery disease), [place] coronary artery GERD (gastroesophageal reflux disease) Ex-smoker Obesity (BMI 30-39.9) Back pain Anxiety Surgical History History of surgery cyst on back removed History of colonoscopy History of cardiac cath History of appendectomy Family History Other Coronary artery disease Diabetes Hyperlipidemia Hypertension Social History Smoking Status: Current every day smoker tobacco type: cigarettes packs per day: 1 second hand exposure: No alcohol intake: never substance use type: denies use current occupational status: disabled Travel in the last 8 weeks?: None household members: spouse housing: house lives independently: No marital status: number of children: 0 current occupational exposures/hazards: No caffeine: No do you feel safe at home: Yes victim of physical abuse: No victim of emotional abuse: No victim of sexual abuse: No would you like helpful sources: No Have you lived/traveled outside US in past 30 days?: No Contact w/someone who lives/traveled outside US past 30 days?: No Exposure to someone with infectious disease in past 14 days?: No Do you have a fever (greater than 100.4 F or 38 C)?: No Have you tested positive for COVID-19?: No Exposed to someone with COVID-19 in past 14 days?: No Do you have a sore throat?: No Do you have a cough?: No Do you have any weakness?: No Do you have any diarrhea?: No Are you experiencing any unusual bleeding?: No Do you have any muscle aches/pain?: No Do you have any abdominal pain?: No Are you experiencing loss of taste or smell?: No Other Medical History Have you received the Flu Vaccine for this season: No Have you received the Pneumonia Vaccine: No Review of Systems Review of Systems Review of systems (narrative): Negative *Cardiovascular Comments: Negative *Gastrointestinal Comments: Negative *Genitourinary Comments: Negative *Musculoskeletal Comments: Negative *Neurologic Comments: Negative Meds Home Medications and Allergies Home Medications ?Medication ?Instructions ?Recorded ?Confirmed ?Type aspirin 81 mg chewable tablet 81 mg PO DAILY Heart disease #90 04/25/22 04/09/25 Rx tabs fluticasone propionate 50 2 spray intranasal DAILY allergies 04/27/23 04/09/25 Rx mcg/actuation nasal #9.9 mL spray,suspension semaglutide (weight loss) 2.4 2.4 mg (0.75 mL) SQ WEEKLY #3 mL 01/22/25 04/09/25 Rx mg/0.75 mL subcutaneous pen injector (Thee) gabapentin 400 mg capsule 400 mg PO TID #90 caps 02/16/25 04/09/25 Rx furosemide 40 mg tablet 40 mg PO DAILY #30 tabs 02/18/25 04/09/25 Rx trazodone 100 mg tablet 100 mg PO HSP PRN Sleep #30 tabs 02/18/25 04/09/25 Rx valbenazine 40 mg capsule 40 mg PO DAILY #90 caps 02/18/25 04/09/25 Rx (Edezza) atorvastatin 40 mg tablet See Rx Instructions .Route 02/24/25 04/09/25 Rx .COMPLEX #90 tabs spironolactone 50 mg tablet 50 mg PO DAILY #30 tabs 03/11/25 04/09/25 Rx fluoxetine 60 mg tablet 60 mg PO DAILY #30 tabs 03/19/25 04/09/25 Rx lamotrigine 100 mg tablet 100 mg PO DAILY 30 days #30 tabs 03/19/25 04/09/25 Rx omeprazole 40 mg capsule,delayed 40 mg PO DAILY #30 caps 03/23/25 04/09/25 Rx release hydroxyzine HCl 25 mg tablet 25 mg PO TID PRN anxiety #60 tabs 03/31/25 04/09/25 Rx albuterol sulfate 90 mcg/actuation See Rx Instructions .Route 04/06/25 04/09/25 Rx aerosol inhaler .COMPLEX #9 grams New Prescriptions to Start Prescriptions: Allergies Allergy/AdvReac Type Severity Reaction Status Date / Time No Known Allergies Allergy Verified 04/09/25 09:34 Exam Data for Last 24 hours Vital signs and Labs for Last 24 Hours: Temp Pulse Resp BP Pulse Ox O2 Del Method 97.1 F L 84 16 121/74 93 L Room Air 04/09/25 09:36 04/09/25 09:36 04/09/25 09:36 04/09/25 09:36 04/09/25 09:36 04/09/25 09:36 *Routine HEENT Exam Head: Present normocephalic Eye: Present EOMI and PERRL ENT: Present mucous membranes moist *Routine Neck Exam Neck: Present supple *Routine Respiratory Exam Respiratory: Present CTA bilaterally *Routine Cardiovascular Exam Cardiovascular: Present RRR *Routine Abdominal Exam Abdominal: Present soft and normoactive bowel sounds; Absent tenderness *Routine Rectal Exam Rectal:: deferred *Routine Genitalia Exam Genitalia:: deferred *Routine Extremities Exam Extremities: Absent cyanosis, clubbing or edema *Routine Skin Exam Skin: Present warm; Absent rash *Routine Neurological Exam Neurological: Present alert and oriented X3 Assessment and Plan *Assessment and plan (1) Nausea & vomiting: Status: Acute Category: Medical Code(s): R11.2 - Nausea with vomiting, unspecified (2) Bloating: Status: Acute Category: Medical Code(s): R14.0 - Abdominal distension (gaseous) (3) Belching: Status: Acute Category: Medical Code(s): R14.2 - Eructation (4) Heartburn: Status: Acute Category: Medical Code(s): R12 - Heartburn (5) GERD (gastroesophageal reflux disease): Status: Acute Category: Medical Code(s): K21.9 - Gastro-esophageal reflux disease without esophagitis Plan A/P: 1. Nausea and vomiting with bloating, belching, heartburn and reflux is the preprocedural diagnosis. The patient will be anesthetized/sedated using MAC sedation. The patient has been seen and examined. Cardiac and lung assessment prior to the examination is stable. Proceed with planned diagnostic EGD.
--- NOTE | 2025-04-09 10:20 | HMH.PROCNOTE ---
[facility] Procedure Note Date: 04/09/25 Time: 10:28 Procedure Note:: Upper Endoscopy Procedure Report: Esophagogastroduodenoscopy with cold biopsies and TTS balloon dilation Endoscopost: John Goff II, MD Referring Physician: Carlos Voss MD Date of Procedure: April 09, 2025 Equipment: Olympus GIF 190 standard upper endoscope Sedation: MAC sedation Indications: Mr. Acuna is a 50-year-old gentleman with GERD and dyspepsia. He does report postprandial nausea, vomiting, bloating and belching. The nausea and vomiting occurs 3 or 4 times a week. He has been on omeprazole. He does get heartburn and reflux with breakthrough even on the omeprazole. He was drinking 4 bottles of soda daily. He reports regular bowel function but does have incomplete bowel evacuation. He reports some epigastric abdominal discomfort, fullness and early satiety. He will have occasional dysphagia. He did have a colonoscopy (Ruddy Waldron MD) and 2022 and had a couple of benign polyps (tubular adenomas) removed. Procedure: Prior to the procedure, a history and physical exam was performed, and patient's medications and allergies were reviewed. The risks, benefits and alternatives of the sedation and procedure were discussed with the patient. All questions were answered and informed consent was obtained. The patient was brought to the procedure room. Patient identification and proposed procedure were verified by the physician and the nurse. The patient was placed in a left lateral decubitus position and the scope was passed under direct vision. Throughout the procedure, the patient's blood pressure, pulse, and oxygen saturations were monitored continuously. The upper GI endoscopy was accomplished without difficulty. The patient tolerated the procedure well. Findings: The scope was passed directly into the upper esophagus and advanced to the fourth portion of duodenum and proximal jejunum. A cold biopsy was taken from the proximal jejunum for disaccharidase assay. There was some mild duodenal lymphoid stasis. The proximal jejunum, post bulbar duodenum, ampulla and duodenal bulb were normal with normal mucosa and conniventes. The scope was withdrawn through a normal duodenal bulb and pylorus into the stomach. There was some mild antral gastropathy. There was still large amount of retained solid food content within the body of the stomach consistent with gastric dysmotility (semaglutide effect). Upon retroflexion there was no hiatal hernia. The scope was then withdrawn into the esophagus. There was no evidence of reflux esophagitis. There was a single tongue of salmon-colored mucosa that was biopsied to rule out intestinal metaplasia. There were tertiary contractions and evidence of moderate esophageal dysmotility. The remainder of the esophageal mucosa was normal. Impression: 1. Nonerosive GERD with moderate esophageal dysmotility 2. Retained gastric food content consistent with gastric dysmotility (semaglutide effect) 3. Mild antral gastropathy Plan: I will follow-up the biopsies and disaccharidase assay. I would recommend stopping semaglutide and initiation of fiber bowel regimen (MiraLAX plus Metamucil) and metoclopramide. I would avoid carbonated beverages.
[2025-04-09 10:32] VITALS: BP 102/63; PULSE 79; RESP 16; TEMP 36.2; O2SAT 92
[2025-04-09 10:42] VITALS: BP 108/66; PULSE 76; RESP 16; O2SAT 94
[2025-04-09 10:52] VITALS: BP 100/72; PULSE 73; RESP 16; O2SAT 96
[2025-04-09 11:01] VITALS: BP 100/65; PULSE 74; RESP 16; O2SAT 98
[2025-04-15 14:21] LABS: Interpretation Notes (.); Lactase 59.27 (>/= 14.0); Maltase 396.28 (>/= 110.0); Palatinase 27.4 (>/= 8.5); Reference Notes (.); Sucrase 123.01 (>/= 25.0)
== END 2025-04-09 11:16 | disposition home or self-care (01) ==
PROVIDERS: PCP Family Medicine; Visit Provider Internal Medicine Gastroenterology
PROC: 0DJ08ZZ Inspection of Upper Intestinal Tract, Via Natural or Artificial Opening Endoscopic (ICD-10-PCS; CPT 43239; principal; 2025-04-09 11:00)
DX: K21.9 Gastro-esophageal reflux disease without esophagitis (principal); K31.89 Other diseases of stomach and duodenum; K22.4 Dyskinesia of esophagus; T38.3X5A Adverse effect of insulin and oral hypoglycemic [antidiabetic] drugs, initial encounter; R13.10 Dysphagia, unspecified; K29.50 Unspecified chronic gastritis without bleeding; K31.A14 Gastric intestinal metaplasia without dysplasia, involving the cardia; K31.84 Gastroparesis; I11.0 Hypertensive heart disease with heart failure; I50.9 Heart failure, unspecified; J44.9 Chronic obstructive pulmonary disease, unspecified; J45.40 Moderate persistent asthma, uncomplicated; F32.9 Major depressive disorder, single episode, unspecified; G47.33 Obstructive sleep apnea (adult) (pediatric); E78.5 Hyperlipidemia, unspecified; I25.10 Atherosclerotic heart disease of native coronary artery without angina pectoris; F41.9 Anxiety disorder, unspecified; F17.210 Nicotine dependence, cigarettes, uncomplicated; R15.0 Incomplete defecation; Z86.0101 Personal history of adenomatous and serrated colon polyps; E66.01 Morbid (severe) obesity due to excess calories; Z68.41 Body mass index [BMI] 40.0-44.9, adult; Z90.49 Acquired absence of other specified parts of digestive tract; Z79.899 Other long term (current) drug therapy; Z79.82 Long term (current) use of aspirin; Z79.85 Long-term (current) use of injectable non-insulin antidiabetic drugs
CPT/HCPCS: 43239; 82657; 88305; 88313; 88342; J2003; J2704; J7120

== ENCOUNTER 2025-04-20 10:54 | Outpatient (CLI) | payer MEDICARE, OTHER, SELFPAY ==
[2025-04-20 15:18] LABS: Anion Gap 16.1 mEq/L (5-15); Blood Urea Nitrogen 5 mg/dl (9-20); Calcium 9.6 mg/dl (8.4-10.2); Carbon Dioxide 26 mmol/L (22.0-30.0); Chloride 98 mmol/L (98-107); Creatinine,Serum 1.20 mg/dl (0.66-1.25); Estimated Glomerular Filt Rate 64 ml/min (>60); GFR (African American) 78 ML/MIN (>60); Glucose 87 mg/dl (74-100); Potassium 4.1 mmoL/L (3.5-5.1); Sodium 136 mmol/L (136-145)
--- OUTSIDE RECORDS SUMMARY | 2025-04-21 13:26 | XMS_ITS | Encounter Summary ---
Author Organization Healthcare Address [address] [place] [address] Care Team Providers Care Hotel Reservationist Name Role Phone Jayesh Samayoa MD Primary Care Provider [phone] Encounter Details Date Type Department Care Team (Late st Contact Info) Description 05/30/2023 Orders Only External Location [address] [place] [address] Michael Vasquez MD [facility] [address] [id number] Social History Tobacco Use Types Packs/Day Years Used Date Smoking Tobacco: Never Assessed Sex and Gender Information Value Date Recorded Sex Assigned at Not on file Legal Sex Male 7:45 PM EDT Gender Identity Not on file Sexual Orientation Not on file documented as of this encounter Plan of Treatment Not on file documented as of this encounter Procedures Procedure Name Priority Date/Time Associated Diagnosis Comments CT ANGIO HEAD 05/30/2023 3:45 PM EDT documented in this encounter Results * CT Angio Head (05/30/2023 3:45 PM EDT) Anatomical Region Laterality Modality [place] Computed Tomogr aphy 05/30/2023 3:45 PM EDT Michael Vasquez MD IMG CT PROCEDURES Final Result documented in this encounter Visit Diagnoses Not on filedocumented in this encounter Care Teams Hotel Reservationist Relationship Specialty Start Date End Date Jayesh Samayoa MD [address] [place] [id number] PCP - General 02/18/21 documented as of this encounter
--- OUTSIDE RECORDS SUMMARY | 2025-04-21 13:26 | XMS_ITS | Encounter Summary ---
Author Organization [facility] Address [address] [place] [address] Care Team Providers Care Farm Management Agent Name Role Phone Jayesh Samayoa MD Primary Care Provider [phone] Encounter Details Date Type Department Care Team (Late st Contact Info) Description 12/24/2023 Orders Only External Location [address] [place] [address] Nazario Espinoza MD [address] [place] [address] [place] [address] Social History Tobacco Use Types Packs/Day Years [...] Procedure Name Priority Date/Time Associated Diagnosis Comments US OUTSIDE IMAGES 12/24/2023 3:55 PM EDT documented in this encounter Results * US OUTSIDE IMAGES (12/24/2023 3:55 PM EDT) Anatomical Region Laterality Modality Ultrasound 12/24/2023 3:55 PM EDT us Nazario Espinoza MD IMG US PROCEDURES Final Result documented in this encounter Visit Diagnoses Not on filedocumented in this encounter Care Teams Farm Management Agent Relationship Specialty Start Date End Date Jayesh Samayoa MD [facility] [address] [id number] PCP - General 02/18/21 documented as of this encounter
--- OUTSIDE RECORDS SUMMARY | 2025-04-21 13:26 | XMS_ITS | Encounter Summary ---
Author Organization [facility] Address [address] [place] [address] Care Team Providers Care Director Market Research Name Role Phone Jayesh Samayoa MD Primary Care Provider Encounter Details Date Type Department Care Team (Late st Contact Info) Description 10/31/2022 Orders Only External Location [address] [place] [address] Provider, External Social History Tobacco Use Types Packs/Day Years [...] Priority Date/Time Associated Diagnosis Comments CT ANGIO CHEST 10/31/2022 7:33 PM EST documented in this encounter Results * CT Angio Chest (10/31/2022 7:33 PM EST) Anatomical Region Laterality Modality Chest Computed Tomogra phy 10/31/2022 7:33 PM EST us External Provider IMG CT PROCEDURES Final Result documented in this encounter Visit Diagnoses Not on filedocumented in this encounter Care Teams Director Market Research Relationship Specialty Start Date End Date Jayesh Samayoa MD [facility] [address] [address] PCP - General 02/18/21 documented as of this encounter
--- OUTSIDE RECORDS SUMMARY | 2025-04-21 13:26 | XMS_ITS | Encounter Summary ---
Author Organization [facility] Address [address] [place] [address] Care Team Providers Care Drapery Worker Name Role Phone Jayesh Samayoa MD Primary Care Provider [phone] Encounter Details Date Type Department Care Team (Late st Contact Info) Description 05/30/2023 Orders Only External Location [address] [place] [address] Michael Vasquez MD [facility] [place] [address] [phone] Social History Tobacco Use Types Packs/Day Years [...] Priority Date/Time Associated Diagnosis Comments CT ANGIO NECK 05/30/2023 3:45 PM EDT documented in this encounter Results * CT Angio Neck (05/30/2023 3:45 PM EDT) Anatomical Region Laterality Modality Carotid Artery Computed Tomogra phy 05/30/2023 3:45 PM EDT Michael Vasquez MD IMG CT PROCEDURES Final Result documented in this encounter Visit Diagnoses Not on filedocumented in this encounter Care Teams Drapery Worker Relationship Specialty Start Date End Date Jayesh Samayoa MD [address] [place] [id number] PCP - General 02/18/21 documented as of this encounter
--- OUTSIDE RECORDS SUMMARY | 2025-04-21 13:26 | XMS_ITS | Clinical Summary ---
Author Organization [facility] Address [address] [place] [address] Care Team Providers Care Die Set Up Worker Name Role Phone Jayesh Samayoa MD Primary Care Provider [phone] Allergies No known active allergies Medications atorvastatin (Lipitor) 40 MG tablet .COMPLEX 3 Active clopidogrel (Plavix) 75 MG tablet Take 1 tablet (75 mg) by mouth 1 (one) time each day. 3 Active Breo Ellipta 200-25 MCG/ACT aerosol powder Inhale 1 puff. 4 Active fluticasone (Flonase) 50 MCG/ACT nasal spray 2 sprays. 3 Active furosemide (Lasix) 40 MG tablet .COMPLEX 3 Active isosorbide mononitrate ER (Imdur) 60 MG 24 hr tablet Take 1 tablet (60 mg) by mouth 1 (one) time each day. Active isosorbide mononitrate ER (Imdur) 30 MG 24 hr tablet Take 1 tablet (30 mg) by mouth 1 (one) time each day. 4 Active metoprolol succinate XL (Toprol-XL) 25 MG 24 hr tablet 1 tablet (25 mg). 4 Active omeprazole (PriLOSEC) [address] capsule TAKE 1 CAPSULE BY MOUTH ONCE DAILY FOR GERD Active risperiDONE (RisperDAL) 1 MG tablet TAKE 1 TABLET BY MOUTH TWICE DAILY FOR ANXIETY Active spironolactone (Aldactone) 100 MG tablet TAKE 1 TABLET BY MOUTH ONCE DAILY FOR FLUID Active traZODone (Desyrel) 100 MG tablet TAKE 1 TABLET BY MOUTH EVERY DAY AT BEDTIME NEEDED FOR INSOMNIA Active valbenazine tosylate (Ingrezza) 40 MG capsule 1 capsule (40 mg). Active ASPIRIN 81 MG chewable tablet Chew 1 tablet (81 mg) 1 (one) time each day. Active Family History Medical History Relation Name Comments Heart Problem Father Hypertension Father Depression Mother Heart Problem Mother Hypertension Mother Relation Name Status Comments Father Mother Social History Tobacco Use Types Packs/Day Years Used Date Smoking Tobacco: Every Day Cigarettes Smokeless Tobacco: Never Tobacco Cessation:Ready to Q uit: Not Asked; Counseling Given: Not Answered Alcohol Use Standard Drinks/Week Comments Not Currently 0 (1 standard drink = 0.6 oz pur e alcohol) PHQ-2 Answer Date Recorded Patient Health Questionnaire-2 Score 0 09/15/2024 PHQ-9 Answer Date Recorded Patient Health Questionnaire-9 Score 0 09/15/2024 Sex and Gender Information Value Date Recorded Sex Assigned at Not on file Legal Sex Male 7:45 PM EDT Gender Identity Not on file Sexual Orientation Not on file Last Filed Vital Signs Vital Sign Reading Time Taken Comments Blood Pressure 115/80 09/15/2024 10:18 AM EST Pulse 72 09/15/2024 10:18 AM EST Temperature 36.7 C (98.1 F) 09/15/2024 10:18 AM EST Respiratory Rate - - Oxygen Saturation 100% 09/15/2024 10:18 AM EST Inhaled Oxygen Concentration - - Weight 147 kg (324 lb 1.2 oz) 09/15/2024 10:18 A M EST Height 180.3 cm (5' 11 ) 09/15/2024 10:18 AM EST Body Mass Index 45.2 09/15/2024 10:18 AM EST Plan of Treatment Health Maintenance Due Date Last Done Comments [facility]-HIV Screening 1975 [facility]-Hepatitis C Screening 1975 [facility]-Medicare Annual Wellness (AWV) 1975 [facility]-Infant/Child/Adol SDOH Screenings 1975 [facility]- SDOH Screenings 1993 [facility]-Adult SDOH Screenings 1993 [facility]-Hepatitis B Vaccines (1 of 3 - 19+ 3-dose series) 1994 [facility]-Pneumococcal Vaccine: 50+ Years (1 of 2 - PCV) 1994 CT Colonography 2020 Colonoscopy 2020 FIT-DNA 2020 FIT 2020 FOBT 2020 Sigmoidoscopy 2020 [facility]-Colorectal Cancer Screening 2020 [id number] Vaccine ( season) 2024 10/21/2021, 04/21/2021, 03/24/2021 [facility]-Zoster Vaccines (1 of 2) 2025 [facility]-Influenza Vaccine (#1) 06/08/202508/12, 09/14/2023, 09/07/2020, Additional history exists [facility]-Depression Screening 09/15/2025 09/15/2024, 06/2024 [facility]-DTaP,Tdap,and Td Vaccines (2 - Td or Tdap) 05/14/2031 05/14/2021, 01/06/2004 [facility]-Obesity Intervention Completed 09/15/2024, 01/07 HPV Vaccines Aged Out No longer eligi ble based on patient's age to complete this topic [facility]-HIB Vaccines Aged Out No longer e ligible based on patient's age to complete this topic [facility]-Hepatitis A Vaccines Aged Out No longer eligible based on patient's age to complete this topic [facility]-IPV Vaccines Aged Out No longer e ligible based on patient's age to complete this topic [facility]-Rotavirus Vaccines Aged Out No lo nger eligible based on patient's age to complete this topic Insurance AETNA [facility] MEDICAID AETNA MEDICARE Care Teams Die Set Up Worker Relationship Specialty Start Date End Date Jayesh Samayoa MD [address] [place] [address] PCP - General 02/18/21
== END 2025-04-20 23:59 | disposition home or self-care (01) ==
LOC: LAB.DROPOF 04-21 13:18
PROVIDERS: PCP Family Medicine; Visit Provider Family Medicine
DX: I50.32 Chronic diastolic (congestive) heart failure (principal)
CPT/HCPCS: 80048

== ENCOUNTER 2025-06-18 11:03 | Outpatient (CLI) | payer MEDICARE, OTHER, SELFPAY ==
[2025-06-18 15:11] LABS: Chloride 109 mmol/L (98-107); Potassium 4.5 mmoL/L (3.5-5.1); Sodium 137 mmol/L (136-145)
[2025-06-18 15:14] LABS: Anion Gap 9.5 mEq/L (5-15); Blood Urea Nitrogen 7 mg/dl (9-20); Carbon Dioxide 23 mmol/L (22.0-30.0); Creatinine,Serum 0.90 mg/dl (0.66-1.25); Estimated Glomerular Filt Rate 89 ml/min (>60); GFR (African American) 108 ML/MIN (>60)
[2025-06-18 15:15] LABS: Calcium 9.2 mg/dl (8.4-10.2); Glucose 95 mg/dl (74-100)
--- OUTSIDE RECORDS SUMMARY | 2025-06-19 10:54 | XMS_ITS | Clinical Summary ---
Author Organization [facility] Address [address] [place] [address] Care Team Providers Care Team Lead Name Role Phone Jayesh Samayoa MD Primary Care Provider Allergies No known active allergies Medications atorvastatin [...] 2020 Sigmoidoscopy 2020 [facility]-Colorectal Cancer Screening 2020 [facility]-Zoster Vaccines (1 of 2) 2025 [id number] Vaccine (4 - 2024- season) 2025 10/21/2021, 04/21/2021, 03/24/2021 [facility]-Influenza Vaccine (#1) 06/08/202508/12, 09/14/2023, 09/07/2020, Additional [...] age to complete this topic Insurance AETNA [facility] MEDICAID AETNA MEDICARE Care Teams Team Lead Relationship Specialty Start Date End Date Jayesh Samayoa MD [address] [place] [address] PCP - General 02/18/21
--- OUTSIDE RECORDS SUMMARY | 2025-06-19 10:54 | XMS_ITS | Clinical Summary ---
Author Organization [facility] Address [facility] [place] [address] Care Team Providers Care Straddle Buggy Operator Name Role Phone AshleighRandolph levine Roula AIKEN Primary Care Provider +1- [phone] Allergies No known active allergies Medications acetaminophen-co deine (TYLENOL #3) 300-30 MG 09/10/2018 Activ e PROAIR HFA 108 (90 Base) MCG/ACT inhaler 08/02/2018 Act marcy baclofen (LIORESAL) 20 MG tablet Take by mouth. Active busPIRone (BUSPAR) 10 MG tablet 09/24/2018 Active butalbital-aceta minophen-caffein e (FIORICET, ESGIC) 50-325-40 MG 09/10/2018 Active diazePAM (VALIUM) 10 MG tablet Take by mouth. Active diclofenac (VOLTAREN) 75 MG EC tablet 09/12/2018 Active escitalopram (LEXAPRO) 20 MG tablet Take by mouth. Active fluticasone (FLONASE) 50 MCG/ACT nasal spray 09/12/2018 Active gabapentin (NEURONTIN) 800 MG tablet Take by mouth. Active omeprazole (PRILOSEC) 40 MG capsule 08/24/2018 Active montelukast (SINGULAIR) 10 MG tablet 09/12/2018 Active Multiple Vitamin (ONE-A-DAY MENS PO) Take by mouth. Active Active Problems Problem Noted Date Diagnosed Date Neck pain 11/03/2018 Cervical stenosis of spinal canal 11/03/2018 Social History Tobacco Use Types Packs/Day Years Used Date Smoking Tobacco: Every Day Smokeless Tobacco: Never Alcohol Use Standard Drinks/Week Comments No 0 (1 standard drink = 0.6 oz pur e alcohol) AUDIT-C Answer Date Recorded Frequency of Alcohol Consumption Never 10/13/2018 Average Number of Drinks Not on file 019 Frequency of Binge Drinking Not on file 03/2019 Sex and Gender Information Value Date Recorded Sex Assigned at Not on file Legal Sex Male 11:40 AM EST Gender Identity Not on file Sexual Orientation Not on file Last Filed Vital Signs Vital Sign Reading Time Taken Comments Blood Pressure - - Pulse - - Temperature - - Respiratory Rate - - Oxygen Saturation - - Inhaled Oxygen Concentration - - Weight 111.1 kg (245 lb) 09/24/2018 3:08 PM EST Height 180.3 cm (5' 11 ) 09/24/2018 3:08 PM EST Body Mass Index 34.17 09/24/2018 3:08 PM EST Plan of Treatment Health Maintenance Due Date Last Done Comments CT Colonography 1975 Colonoscopy 1975 Colorectal Cancer Screening 1975 FIT-DNA 1975 FIT 1975 FOBT 1975 Sigmoidoscopy 1975 Hepatitis B (HepB) Vaccine ( 1 of 3 - 19+ 3-dose series) 1994 Tdap/Td Vaccine >11 yo (1 - Tdap) 01/07/2004 004 Annual SDOH Screening 10/08/2024 Pneumococcal Vaccines >50 yo (1 of 1 - PCV) 2025 Shingles (Shingrix) (1 of 2) 2025 Influenza Vaccine (#1) 2025 08/20/2017 RSV 50+ and (1 - 1 -dose 75+ series) 2050 Haemophilus Influenzae Type B (Hib) Vaccine Aged Out No longer eligible b ased on patient's age to complete this topic Hepatitis A (HepA) Vaccine Aged Out N o longer eligible based on patient's age to complete this topic Meningococcal ACWY Aged Out No longer eligible based on patient's age to complete this topic Polio (IPV) Aged Out No longer eligi ble based on patient's age to complete this topic Rotavirus (RV) Vaccine Aged Out No lo nger eligible based on patient's age to complete this topic Insurance MEDICAID [place] Member Subscriber Plan / Payer (Ef fective 2020-Present) Name:Maurilio Acuna Relation to Subscriber:Self Name:Maurilio Acuna Payer ID:[id number] Group ID:Not on file Type:Medicaid Address: [address] [place] [address] [facility] MEDICARE REPLACEMENT Care Teams Straddle Buggy Operator Relationship Specialty Start Date End Date Randolph Sotelo APRN [address] [place] [address] PCP - General Nurse Practitioner 09/24/18
--- OUTSIDE RECORDS SUMMARY | 2025-06-19 10:54 | XMS_ITS | Encounter Summary ---
Author Organization [facility] Address [address] [place] [address] Care Team Providers Care Surface Supervisor Name Role Phone Jayesh Samayoa MD Primary Care Provider +1- [phone] Encounter Details Date Type Department Care Team (Late st Contact Info) Description 05/30/2023 Orders Only External Location [address] [place] [address] Michael Vasquez MD [facility] [place] [address] [place] [phone] Social History Tobacco Use Types Packs/Day Years [...] on filedocumented in this encounter Care Teams Surface Supervisor Relationship Specialty Start Date End Date Jayesh Samayoa MD [address] [place] [id number] PCP - General 02/18/21 documented as of this encounter
--- OUTSIDE RECORDS SUMMARY | 2025-06-19 10:54 | XMS_ITS | Encounter Summary ---
Author Organization [facility] Address [address] [place] [address] Care Team Providers Care Telephony Engineer Name Role Phone Jayesh Samayoa MD Primary Care Provider +1- [phone] Encounter Details Date Type Department Care Team (Late st Contact Info) Description 12/24/2023 Orders Only External Location [address] [place] [address] Nazario Espinoza MD [address] [place] [address] [place] [address] Social History Tobacco Use Types Packs/Day Years [...] on filedocumented in this encounter Care Teams Telephony Engineer Relationship Specialty Start Date End Date Jayesh Samayoa MD [facility] [address] [id number] PCP - General 02/18/21 documented as of this encounter
--- OUTSIDE RECORDS SUMMARY | 2025-06-19 10:54 | XMS_ITS | Encounter Summary ---
Author Organization [facility] Address [address] [place] [address] Care Team Providers Care Reinforcer Name Role Phone Jayesh Samayoa MD Primary Care Provider Encounter Details Date Type Department Care Team (Late st Contact Info) Description 10/31/2022 Orders Only External Location [address] [place] [address] Provider, External Social History Tobacco Use Types [...] on filedocumented in this encounter Care Teams Reinforcer Relationship Specialty Start Date End Date Jayesh Samayoa MD [facility] [address] [address] PCP - General 02/18/21 documented as of this encounter
--- OUTSIDE RECORDS SUMMARY | 2025-06-19 10:54 | XMS_ITS | Encounter Summary ---
Author Organization [facility] Address [address] [place] [address] Care Team Providers Care Nurse Recruiter Name Role Phone Jayesh Samayoa MD Primary Care Provider +1- [phone] Encounter Details Date Type Department Care Team (Late st Contact Info) Description 05/30/2023 Orders Only External Location [address] [place] [address] Michael Vasquez MD [facility] [address] [place] [phone] Social History Tobacco Use Types Packs/Day Years [...] 3:45 PM EDT) Anatomical Region Laterality Modality [place] Computed Tomogr aphy 05/30/2023 3:45 PM EDT Michael Vasquez MD IMG CT PROCEDURES Final Result documented in this encounter Visit Diagnoses Not on filedocumented in this encounter Care Teams Nurse Recruiter Relationship Specialty Start Date End Date Jayesh Samayoa MD [address] [place] [id number] PCP - General 02/18/21 documented as of this encounter
== END 2025-06-18 23:59 ==
LOC: LAB.DROPOF 06-19 10:51
PROVIDERS: PCP Family Medicine; Visit Provider Family Medicine
DX: Z79.899 Other long term (current) drug therapy (principal)
CPT/HCPCS: 80048

== ENCOUNTER 2025-06-27 16:53 | Emergency (ER) | payer MEDICARE, OTHER, SELFPAY ==
[2025-06-27] VITALS (30 sets, daily range): BP systolic 94–187; BP diastolic 39–84; PULSE 99–121; RESP 13–48; TEMP 36.6–37.4; O2SAT 96–99; BMI 40.3; BMI 39.9
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
--- OUTSIDE RECORDS SUMMARY | 2025-06-27 17:04 | XMS_ITS | Encounter Summary ---
Author Organization [facility] Address [address] [place] [address] Care Team Providers Care Roads Supervisor Name Role Phone Jayesh Samayoa MD Primary Care Provider Encounter Details Date Type Department Care Team (Late st Contact Info) Description 10/31/2022 Orders Only External Location [address] [place] [address] Provider, External Social History Tobacco Use Types [...] on filedocumented in this encounter Care Teams Roads Supervisor Relationship Specialty Start Date End Date Jayesh Samayoa MD [facility] [address] [address] PCP - General 02/18/21 documented as of this encounter
--- OUTSIDE RECORDS SUMMARY | 2025-06-27 17:04 | XMS_ITS | Clinical Summary ---
Author Organization [facility] Address [facility] [place] [address] Care Team Providers Care Mandarin Chinese Teacher Name Role Phone AshleighRandolph levine Roula AIKEN Primary Care Provider +1- [phone] Allergies No known active allergies Medications acetaminophen-co [...] age to complete this topic Insurance MEDICAID [place] Member Subscriber Plan / Payer (Ef fective 2020-Present) Name:Maurilio Acuna Relation to Subscriber:Self Name:Maurilio Acuna Payer ID:[id number] Group ID:Not on file Type:Medicaid Address: [address] [place] [address] [facility] MEDICARE REPLACEMENT Care Teams Mandarin Chinese Teacher Relationship Specialty Start Date End Date Randolph Sotelo APRN [address] [place] [address] PCP - General Nurse Practitioner 09/24/18
--- OUTSIDE RECORDS SUMMARY | 2025-06-27 17:04 | XMS_ITS | Encounter Summary ---
Author Organization [facility] Address [address] [place] [address] Care Team Providers Care Working Second Hand Name Role Phone Jayesh Samayoa MD Primary Care Provider +1- [phone] Encounter Details Date Type Department Care Team (Late st Contact Info) Description 05/30/2023 Orders Only External Location [address] [place] [address] Michael Vasquez MD [facility] [address] [place] [phone] Social History Tobacco Use Types Packs/Day Years [...] on filedocumented in this encounter Care Teams Working Second Hand Relationship Specialty Start Date End Date Jayesh Samayoa MD [address] [place] [id number] PCP - General 02/18/21 documented as of this encounter
--- OUTSIDE RECORDS SUMMARY | 2025-06-27 17:04 | XMS_ITS | Encounter Summary ---
Author Organization [facility] Address [address] [place] [address] Care Team Providers Care Hand Model Name Role Phone Jayesh Samayoa MD Primary Care Provider [phone] Encounter Details Date Type Department Care Team (Late st Contact Info) Description 12/24/2023 Orders Only External Location [address] [place] [address] Nazario Espinoza MD [address] [place] [address] [place] [address] Social History Tobacco Use Types Packs/Day Years [...] on filedocumented in this encounter Care Teams Hand Model Relationship Specialty Start Date End Date Jayesh Samayoa MD [facility] [address] [id number] PCP - General 02/18/21 documented as of this encounter
--- OUTSIDE RECORDS SUMMARY | 2025-06-27 17:04 | XMS_ITS | Clinical Summary ---
Author Organization [facility] Address [address] [place] [address] Care Team Providers Care Vice President Biostatistics Name Role Phone Jayesh Samayoa MD Primary Care Provider [phone] Allergies No known active allergies Medications atorvastatin [...] 2020 UKY-Zoster Vaccines (1 of 2) 2025 [id number] Vaccine (4 - 2024- season) 2025 10/21/2021, [...] age to complete this topic Insurance [employer] [facility] MEDICAID AET[employer] MEDICARE Care Teams Vice President Biostatistics Relationship Specialty Start Date End Date Jayesh Samayoa MD [address] [place] [address] PCP - General 02/18/21
--- OUTSIDE RECORDS SUMMARY | 2025-06-27 17:04 | XMS_ITS | Clinical Summary ---
Author Organization [facility] Address [address] [place] [address] Care Team Providers Care Wet Mixer Name Role Phone Randolph Sotelo APRN Primary Care Provider [phone] Allergies No known active allergies Medications omeprazole (PRILOSEC) 40 MG capsule 40 mg by mouth 2 (two) times daily Active gabapentin (NEURONTIN) 800 MG tablet Take 400 mg by mouth 3 (three) times daily. Active baclofen (LIORESAL) 20 MG tablet 20 mg by mouth 2 (two) times daily Active FLUoxetine (PROZAC) 20 MG capsule Take 40 mg by mouth daily. Active metoprolol (LOPRESSOR) 25 MG tablet Take 25 mg by mouth 2 (two) times daily. Active spironolactone (ALDACTONE) 100 MG tablet Take 100 mg by mouth daily. Active furosemide (LASIX) 40 MG tablet Take 40 mg by mouth every morning. Active traZODone (DESYREL) 100 MG tablet Take 100 mg by mouth nightly. Active aspirin (ECOTRIN) 81 MG EC tablet Take 81 mg by mouth daily. Active atorvastatin (LIPITOR) 40 MG tablet Take 40 mg by mouth every evening. Active fluticasone propionate (FLONASE) 50 mcg/actuation nasal spray 1 spray by Nasal route daily. Active albuterol (PROVENTIL HFA) 90 mcg/actuation inhaler Inhale 2 puffs into the lungs every 6 (six) hours as needed for Wheezing. Active valbenazine (INGREZZA) 40 mg Cap Take 80 mg by mouth daily. Active Family History Medical History Relation Comments Heart disease Mother Relation Status Comments Mother Alive Social History Tobacco Use Types Packs/Day Years Used Date Smoking Tobacco: Every Day Smokeless Tobacco: Never Tobacco Cessation:Ready to Q uit: No; Counseling Given: Yes Alcohol Use Standard Drinks/Week Comments No 0 (1 standard drink = 0.6 oz pur e alcohol) AUDIT-C Answer Date Recorded Frequency of Alcohol Consumption Never 03/13/2019 Average Number of Drinks Not on file 019 Frequency of Binge Drinking Not on file 03/2019 Depression PHQ-9 Answer Date Recorded Last PHQ-9 Score 10 03/13/2019 Sex and Gender Information Value Date Recorded Sex Assigned at Not on file 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 Gender Identity Not on file Sexual Orientation Not on file Last Filed Vital Signs Vital Sign Reading Time Taken Comments Blood Pressure 117/78 01/17/2025 3:00 AM CDT Pulse 81 01/17/2025 3:00 AM CDT Temperature - - Respiratory Rate 18 01/17/2025 3:00 AM CDT Oxygen Saturation 92% 01/17/2025 3:00 AM CDT Inhaled Oxygen Concentration - - Weight 134 kg (296 lb) 01/17/2025 12:56 AM CDT Height 180.3 cm (5' 11 ) 01/17/2025 12:56 AM CDT Body Mass Index 41.28 01/17/2025 12:56 AM CDT Plan of Treatment Health Maintenance Due Date Last Done Comments [place] Annual Wellness Visit 1975 IMM Schedule: Varicella (1 of 2 - 13+ 2-dose series) 1988 IMM Schedule: Hepatitis B (1 of 3 - 19+ 3-dose series) 1994 IMM Schedule: Pneumococcal (50+ Years) (1 of 2 - PCV) 1994 Colon Cancer Screening Colonoscopy 2020 Colon Cancer Screening FIT-DNA (Cologuard) (3 year) 2020 Colon Cancer Screening FOBT/FIT (1 year) 2020 Colon Cancer Screening 2020 Sigmoidoscopy (5 year) Colon Cancer Screening 2020 IMM Schedule: Zoster (1 of 2) 2025 COVID-19 Vaccine ( season) 2025 10/21/2021, 04/21/2021, 03/24/2021 IMM Schedule: Influenza (#1) 06/08/202502/2024, 09/14/2023, 09/07/2020, Additional history exists IMM Schedule: Diphtheria, Tetanus, and Pertussis (2 - Td or Tdap) 05/14/2031 05/14/2021, 01/06/2004 IMM Schedule: Hepatitis A Aged Out No longer eligible based on patient's age to complete this topic IMM Schedule: Meningococcal ACWY (Menhibrix/Menomune) Aged Out No longer elig ible based on patient's age to complete this topic IMM Schedule: Meningococcal B Aged Out No longer eligible based on patient's age to complete this topic IMM Schedule: RSV <20 Months Aged Out No longer eligible based on patient's age to complete this topic Insurance [facility] Care Teams Wet Mixer Relationship Specialty Start Date End Date Randolph Sotelo APRN PCP - General Nurse Practitioner - Family 01/17/25 Additional Source Comments IMPORTANT NOTICES REGARDING PATIENT RECORDS DISCLOSED THROUGH CARE EVERYWHERE:1. If the informationreleased to you contains information about AIDs or HIVtest results, that information has been disclosed to you from records whoseconfidentiality is protected by state law ([place]RS 214.625). State law proh ibitsyou from making any further disclosure of such information relating to AIDS orHIV without the specific written consent of the person to whom such informationpertains, or as otherwise permitted by state law. A general authorization forthe release of medical or other information is NOT sufficient for this purpose.2. If the information released to you contains information about alcohol ordrug abuse diagnosis, treatment for such abuse, or referrals for treatment, andif the release was made by a program as defined in 42 CFR 2.11, thisinformation has been disclosed to you from records protected by Federalconfidentiality rules ( TheFederal rules restrict any use of the information to criminally investigate orprosecute any alcohol or drug abuse patient.3. If the information released to you contains information about a person'smental health or chemical dependency, you may not redisclose or otherwisereveal information concerning the mental health or chemical dependency of thatperson, beyond the purpose for which the disclosure was made, without firstobtaining that person's specific written consent to the redisclosure. [id number]
--- OUTSIDE RECORDS SUMMARY | 2025-06-27 17:04 | XMS_ITS | Encounter Summary ---
Author Organization [facility] Address [address] [place] [address] Care Team Providers Care Aviation Manager Name Role Phone Jayesh Samayoa MD Primary Care Provider [phone] Encounter Details Date Type Department Care Team (Late st Contact Info) Description 05/30/2023 Orders Only External Location [address] [place] [address] Michael Vasquez MD [facility] [address] [phone] Social History Tobacco Use Types Packs/Day Years [...] 3:45 PM EDT) Anatomical Region Laterality Modality [place] Computed Tomogr aphy 05/30/2023 3:45 PM EDT Michael Vasquez MD IMG CT PROCEDURES Final Result documented in this encounter Visit Diagnoses Not on filedocumented in this encounter Care Teams Aviation Manager Relationship Specialty Start Date End Date Jayesh Samayoa MD [address] [place] [id number] PCP - General 02/18/21 documented as of this encounter
[2025-06-27] MEDS: ETOMIDATE 40MG/20ML VIAL 40 MG IV (17:08)
[2025-06-27] MEDS: SUCCINYLCHOLINE 20MG/ML 10 ML MDV 130 MG IV (17:09)
--- NOTE | 2025-06-27 17:13 | XR_ITS ---
PROCEDURE INFORMATION: Exam: XR Chest Exam date and time: 06/27/2025 5:12 PM Age: 50 years old Clinical indication: Device placement; Other: Et tube; Additional info: Tube placement TECHNIQUE: Imaging protocol: Radiologic exam of the chest. Views: 1 view. COMPARISON: CT ANGIO CHEST 01/28/2025 5:48 PM FINDINGS: Tubes, catheters and devices: Endotracheal tube is seen with its tip above the cass. It can be advanced another 1.5 cm for optimal positioning Lungs: Interstitial prominence bilaterally. No consolidation Pleural spaces: Unremarkable. No pleural effusion. No pneumothorax. Heart/Mediastinum: Cardiomegaly. Next and granulomatous change Bones/joints: Unremarkable. IMPRESSION: Endotracheal tube can be advanced another 1.5 cm for optimal position
--- NOTE | 2025-06-27 17:30 | PC.NURSE ---
calling @ this time
--- NOTE | 2025-06-27 17:36 | PC.NURSE ---
DR Polk Speaking with Chepe APODACA @ this time
--- NOTE | 2025-06-27 17:54 | PC.NURSE ---
Report Called to Ludwig @ [facility]
[2025-06-27] MEDS: FENTANYL CITRATE/PF 1,000 MCG in 0.9 % SODIUM CHLORIDE 80 ML 2.5 MCG IV (17:55)
[2025-06-27] MEDS: MIDAZOLAM HCL IN 0.9 % NACL/PF 50 MG/50 ML PLAST..BAG 6.49 MG IV (17:58)
--- NOTE | 2025-06-27 17:59 | ECG_ITS ---
APPROVED REPORT Exam: Resting ECG HR:103 bpm ECG Measurements Heart Rate 103 AXES OK 188 P 63 QRSd 105 QRS 44 QT 367 T 58 QTc 427 Conclusion SINUS TACHYCARDIA PROBABLE INFERIOR MYOCARDIAL INFARCTION , PROBABLY OLD [35 ms Q WAVE IN II/aVF] POSSIBLE ANTEROLATERAL MYOCARDIAL INFARCTION , PROBABLY OLD [30 ms Q WAVE IN I/aVL/V3-V6] ABNORMAL ECG UNCONFIRMED REPORT Sinus tachycardia. No ST elevation or depression. QTc of 427 Electronically signed by : MATI VILLAR, 06/27/2025 22:27:09
--- NOTE | 2025-06-27 18:00 | PC.NURSE ---
Intubation Documentation 1705 NRB Placed for Pre Intubation Oxygenation 1708 Etomidate 40mg administered per Kayden House Supervisior 1709 Succinylcholine 130mg administered per Kayden Fact Checker [address], 22cm at the lip, positive color change noted per Mian, RT 1711 Bilateral Breath Sounds Noted per Dr. Polk 1713 Chest x-ray Complete per Radiology 1725 16 Irish Temperature Sensing Weller Catheter placed 1730 16 Irish OG Placed 75cm at the Lip Staff at bedside for Intubation Dr. Polk Will, RT Kayden Fact Checker Shilpa, focuser Yumiko, Primary RN Sae, RN Liliya, RN
--- NOTE | 2025-06-27 18:44 | PC.NURSE ---
Flight Crew departing now with patient.
[2025-06-27 19:42] LABS: Microscopic, Urine URINE MICROSCOPIC (MICROSCOPIC)
[2025-06-27 19:43] LABS: Bilirubin,Urine Negative (Negative); Color,Urine YELLOW (Yellow); Glucose,Urine (UA) Negative (Negative); Ketones,Urine Negative (Negative); Leukocyte Esterase,Urine Negative (Negative); PH,Urine 6.0 (5.0-8.5); Protein,Urine Negative (Negative); Specific Gravity, Urine 1.020 (1.005-1.030); Urobilinogen,Urine 0.2 EU/dl (0.2)
[2025-06-27 21:07] LABS: RBC,Urine Occasional #/hpf (0-3); Squamous Epithelial Cell,Urine Occasional #/hpf (0-5)
== END 2025-06-27 19:08 | disposition other institution (70) ==
PROVIDERS: Emergency Provider Student in an Organized Health Care Education/Training Program; PCP Family Medicine
DX: R06.02 Shortness of breath (principal); T22.231A Burn of second degree of right upper arm, initial encounter; T22.211A Burn of second degree of right forearm, initial encounter; T23.201A Burn of second degree of right hand, unspecified site, initial encounter; T22.111A Burn of first degree of right forearm, initial encounter; T22.131A Burn of first degree of right upper arm, initial encounter; T23.101A Burn of first degree of right hand, unspecified site, initial encounter; T20.00XA Burn of unspecified degree of head, face, and neck, unspecified site, initial encounter; R00.0 Tachycardia, unspecified; I10 Essential (primary) hypertension; T31.0 Burns involving less than 10% of body surface; X10.2XXA Contact with fats and cooking oils, initial encounter
CPT/HCPCS: 31500; 51702; 71045; 81001; 93005; 96365; 96366; 96375; 99285; 99291; J0330; J2251; J2704; J3010

== ENCOUNTER 2025-09-21 11:22 | Outpatient (CLI) | payer MEDICARE, OTHER, SELFPAY ==
--- NOTE | 2025-09-21 11:31 | XR_ITS ---
PROCEDURE INFORMATION: Exam: XR Cervical Spine Exam date and time: 09/21/2025 11:36 AM Age: 50 years old Clinical indication: Neck pain TECHNIQUE: Imaging protocol: Radiologic exam of the cervical spine. Views: 2 or 3 views. COMPARISON: CR XR CERVICAL SPINE 3V 08/13/2024 1:59 PM FINDINGS: Bones/joints: Moderate spondylosis affects C5-C6. Mild retrolisthesis of C5 over C6. Soft tissues: Unremarkable. IMPRESSION: 1. No acute fracture. 2. Mild retrolisthesis of C5 over C6. 3. Moderate spondylosis affects C5-C6.
== END 2025-09-21 23:59 | disposition home or self-care (01) ==
LOC: RAD 11:25
PROVIDERS: PCP Family Medicine; Visit Provider Family Medicine
DX: M47.812 Spondylosis without myelopathy or radiculopathy, cervical region (principal); M43.12 Spondylolisthesis, cervical region
CPT/HCPCS: 72040

== ENCOUNTER 2025-10-07 15:33 | Outpatient (RCR) | payer MEDICARE, OTHER, SELFPAY ==
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
== END 2025-10-07 23:59 | disposition home or self-care (01) ==
LOC: PT 15:33
PROVIDERS: PCP Family Medicine; Visit Provider Family Medicine
DX: M54.2 Cervicalgia (principal); G89.29 Other chronic pain
CPT/HCPCS: 97162